=== PATIENT | female | born 1935 | race Caucasian/White ===

== ENCOUNTER 2023-04-10 08:44 | Emergency (ER) | payer MEDICARE, SELFPAY ==
[2023-04-10] VITALS (33 sets, daily range): BP systolic 142–198; BP diastolic 78–154; PULSE 61–85; RESP 8–27; TEMP 36.9; O2SAT 91–97; BMI 27.5
--- NOTE | 2023-04-10 08:46 | CT_ITS ---
The [address] [address] Patient Name: TORIBIO MASTERS MRN: [id number] date: 1935 Sex: F Assigned Patient Location: ER Current Patient Location: .[facility] Accession/Order Number: [id number] Exam Date: 04/10/2023 08:49 Report Date: 04/10/2023 09:07 At the request of: FLORINA LANG Procedure: CT stroke head/brain wo con CT stroke head/brain wo con, 04/10/2023 8:49 AM EDT, [place]001 INDICATION: change mental status COMPARISON: Head CT from 08/04/2022. TECHNIQUE: CT images of the brain from skull base to vertex, including portions of the face and sinuses, were obtained without contrast. Supplemental 2D reformatted images were generated and reviewed as needed. Dose reduction techniques were achieved by using automated exposure control and/or adjustment of mA and/or kV according to patient size and/or use of iterative reconstruction technique. FINDINGS: The ventricles and sulci are prominent consistent with moderate atrophy , not significantly changed. There are nonspecific foci of decreased attenuation within the white matter likely representing diffuse chronic microvascular ischemic change, not significantly changed. No mass effect, acute hemorrhage, midline shift, hydrocephalus or exta-axial fluid collection. The basal cisterns are patent. The calvarium appears intact. The visualized paranasal sinuses are clear. The mastoids are clear. CT/CT stroke head/brain wo con IMPRESSION: Moderate atrophy and chronic ischemic changes. No acute intracranial process is seen. No significant interval change is seen. Electronically authenticated by: RADHA BARAJAS Date: 04/10/2023 09:07
--- NOTE | 2023-04-10 09:01 | ED.AMS1 ---
HPI - Altered Mental Status General Chief Complaint: Altered Mental Status Stated Complaint: STROKE LIKE SYMPTOMS Time Seen by Provider: 04/10/23 09:01 Source: other Source comment: ems Mode of arrival: ambulance Limitations: altered mental status History of Present Illness HPI narrative: Patient brought in via EMS from the [facility]. As stated the patient woke up this morning and was fine. Her last known well was at 6:50 AM. She was found at 8:18AM after she had breakfast.family was told that she was hypotensive, weak And having difficulty walking with her walker. Family states the patient had a cough 3 days ago. They did an x-ray of the chest which was negative. She was also swabbed for covid19 at that time and it was negative. Patient does not have any complaints at this time she is not slurring her speech and does not have any complaints.She has not had any fever, nausea, vomiting, or diarrhea. 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 She is only oriented to self.She has not had any vomiting, or diarrhea. MD complaint: Reports altered mental status Review of Systems ROS Status of ROS unobtainable due to medical condition PFSH [facility] Social History Smoking status: Never smoker Exam Narrative Exam Narrative: Nurses notes and vital signs reviewed and patient is not hypoxic. General: Nontoxic, Elderly, chronically ill, and in no apparent distress. Skin: Warm, dry, no pallor noted. No Rash Head: Normocephalic, atraumatic. Neck: Supple, non-tender. Eye: Pupils are equal, round and EOMI. No scleral icterus. Ears, Nose, Mouth, and Throat: TM clear, no posterior oropharynx erythema or nasal mucosal hypertrophy, uvula is mid-line Oral mucosa is moist Cardiovascular: Regular Rate and Rhythm without murmur, gallop or rub. Respiratory: No accessory muscle use or respiratory distress. Lungs are clear to auscultation, no wheezing, rales or rhonchi Chest Wall: no tenderness Back: No midline thoracic or lumbar vertebral tenderness. No CVA tenderness Musculoskeletal: normal ROM, no calf or popliteal tenderness, no lower extremity edema/swelling GI: Abdomen is soft, non-distended. Normal bowel sounds. No masses appreciated. No tenderness to palpation. No rebound, guarding, or rigidity noted. Neurological: A&O x1. No focal cranial nerve dysfunction observed. Moves all extremities, Follows commands, no facial asymmetry, good and equal hand grasp bilaterally. Psychiatric: Cooperative, pleasant, dementia Constitutional Vital Signs, click to edit/add: Last Vital Signs Temp 98.4 F 04/10/23 08:54 Pulse 61 04/10/23 13:10 Resp 13 04/10/23 13:10 BP 142/84 H 04/10/23 13:14 Pulse Ox 94 L 04/10/23 13:10 O2 Del Method Room Air 04/10/23 09:08 Course Vital Signs Vital signs: Vital Signs Temperature 98.4 F 04/10/23 08:54 Pulse Rate 72 04/10/23 08:54 Respiratory Rate 20 04/10/23 08:54 Blood Pressure 175/78 H 04/10/23 08:54 Pulse Oximetry 97 04/10/23 08:54 Oxygen Delivery Method Room Air 04/10/23 08:54 Temperature 98.4 F 04/10/23 08:54 Pulse Rate 61 04/10/23 13:10 Respiratory Rate 13 04/10/23 13:10 Blood Pressure 142/84 H 04/10/23 13:14 Pulse Oximetry 94 L 04/10/23 13:10 Oxygen Delivery Method Room Air 04/10/23 09:08 MDM - Altered Mental Status MDM Narrative Medical decision making narrative: CT scan stroke protocol of the brain and CTs were done and CT of the brain is negative for an acute stroke CTAs are unremarkable other than 50 percent bilateral carotid stenosis. The patient is not exhibiting any evidence of sepsis., Urinalysis, x-rays do not show any infection. Patient is sitting up at the bed and has been interacting normally with her son is at her baseline. Patient will be [facility] to the [facility]. At this time the patient is without objective evidence of an acute process requiring hospitalization or inpatient management. The patient has remained hemodynamically stable. No additional indication for emergent studies at this time. I answered all questions. Discussed discharge instructions including standard anticipatory guidance and what should prompt a return to the emergency department, including if they get worse are not getting better or develops any new or concerning symptoms. I've given them specific time frame in which to follow-up, and who to follow-up with. The patient demonstrates understanding. Patient is nontoxic and stable for discharge with outpatient follow-up. This note was created with the assistance of a speech recognition program. Although the intention is to generate documents that actually reflects the content of the visit, no guarantees can be provided that every mistake has been identified and corrected by editing. Differential Diagnosis Differential diagnosis: Likely altered mental status, dementia, subarachnoid hemorrhage and sepsis Medical Records Attestation: I reviewed the patient's medical records. Lab Data Attestation: I reviewed the patient's lab results. Labs: Lab Results 04/10/23 04/10/23 04/10/23 Range/Units 09:03 09:05 09:42 WBC (4.0-11.0) 10^3/uL RBC (4.20-5.40) 10^6/uL Hgb (12.0-16.0) g/dL Hct (36.0-48.0) % MCV (81.0-99.0) fL MCH (26.7-34.0) pg MCHC (29.9-35.2) g/dL RDW (11.0-15.0) % Plt Count (150-450) 10^3/uL MPV (9.5-13.5) fL Neut % (Auto) (43.0-75.0) % Lymph % (Auto) (20.5-60.0) % [place] % (Auto) (1.7-12.0) % Eos % (Auto) (0.9-7.0) % Baso % (Auto) (0.2-2.0) % Neut # (Auto) (1.4-6.5) 10^3/uL Lymph # (Auto) (1.2-3.8) 10^3/uL [place] # (Auto) (0.3-0.8) 10^3/uL Eos # (Auto) (0.0-0.7) 10^3/uL Baso # (Auto) (0.0-0.1) 10^3/uL Abs Immat Gran (auto) (0.00-0.03) 10^3/uL Imm/Tot Granulo (auto) (0.0-0.5) % PT (9.0-11.6) sec INR APTT (22.3-36.2) sec Sodium (136-145) mmol/L Potassium (3.5-5.1) mmol/L Chloride (98-107) mmol/L Carbon Dioxide (21.0-32.0) mmol/L Anion Gap BUN (7.0-18.0) mg/dL Creatinine (0.55-1.02) mg/dL Est GFR ( Amer) (>=60) Est GFR (Non-Af Amer) (>=60) BUN/Creatinine Ratio Glucose (74-106) mg/dL Calcium (8.5-10.1) mg/dL Total Bilirubin (0.2-1.0) mg/dL AST (15-37) U/L ALT (14-59) U/L Alkaline Phosphatase (46-116) U/L Troponin I High Sens (4.0-51.3) pg/mL NT-Pro-B Natriuret Pep 885.0 (<=1800.0) pg/mL Total Protein (6.4-8.2) g/dL Albumin (3.4-5.0) g/dL Globulin g/dL Albumin/Globulin Ratio Urine Color Lt. yellow (YELLOW) Urine Clarity Clear (CLEAR) Urine pH 7.0 (5.0-9.0) Ur Specific [place] 1.010 (1.005-1.025) Urine Protein Negative (NEG/TRACE) mg/dL Urine Glucose (UA) Negative (NEGATIVE) mg/dL Urine Ketones Negative (NEGATIVE) mg/dL Urine Occult Blood Trace-i (NEGATIVE) Urine Nitrite Negative (NEGATIVE) Urine Bilirubin Negative (NEGATIVE) Urine Urobilinogen 0.2 (0.2-1.0) EU/dL Ur Leukocyte Esterase Negative (NEGATIVE) Urine RBC 0-2 (0-2) #/HPF Urine WBC None seen (NONE SEEN) #/HPF Ur Squamous Epith Cells None seen (NONE/RARE) #/LPF Urine Crystals None seen (None Seen) #/HPF Urine Bacteria None seen (NONE SEEN) #/HPF Urine Mucus None seen (NONE SEEN) Ur Culture Indicated? No Adenovirus (PCR) (NOT DETECTE) C. pneumoniae DNA (PCR) (NOT DETECTE) Coronavirus Type OC43 (NOT DETECTE) Coronavirus Type HKU1 (NOT DETECTE) Coronavirus Type 229E (NOT DETECTE) Coronavirus Type NL63 (NOT DETECTE) Human Metapneumovir PCR (NOT DETECTE) M. pneumoniae (PCR) (NOT DETECTE) Parainfluenza PCR (NOT DETECTE) Parainfluenza 2 (PCR) (NOT DETECTE) Parainfluenza 3 (PCR) (NOT DETECTE) Parainfluenza 4 (PCR) (NOT DETECTE) RSV (RT-PCR) (NOT DETECTE) Entero/Rhino (PCR) (NOT DETECTE) SARS-CoV-2 (PCR) (NOT DETECTE) Bordetella pertussis (PCR) (NOT DETECTE) B parapertussis DNA PCR (NOT DETECTE) Influenza Type A (PCR) (NOT DETECTE) Influenza Type B (PCR) (NOT DETECTE) POC Glucose 159 H (74-106) mg/dL 04/10/23 04/10/23 Range/Units 09:43 12:11 WBC 8.0 (4.0-11.0) 10^3/uL RBC 4.04 L (4.20-5.40) 10^6/uL Hgb 12.0 (12.0-16.0) g/dL Hct 36.5 (36.0-48.0) % MCV 90.3 (81.0-99.0) fL MCH 29.7 (26.7-34.0) pg MCHC 32.9 (29.9-35.2) g/dL RDW 13.1 (11.0-15.0) % Plt Count 187 (150-450) 10^3/uL MPV 10.0 (9.5-13.5) fL Neut % (Auto) 75.0 (43.0-75.0) % Lymph % (Auto) 14.3 L (20.5-60.0) % [place] % (Auto) 8.0 (1.7-12.0) % Eos % (Auto) 1.6 (0.9-7.0) % Baso % (Auto) 0.8 (0.2-2.0) % Neut # (Auto) 6.0 (1.4-6.5) 10^3/uL Lymph # (Auto) 1.1 L (1.2-3.8) 10^3/uL [place] # (Auto) 0.6 (0.3-0.8) 10^3/uL Eos # (Auto) 0.1 (0.0-0.7) 10^3/uL Baso # (Auto) 0.1 (0.0-0.1) 10^3/uL Abs Immat Gran (auto) 0.02 (0.00-0.03) 10^3/uL Imm/Tot Granulo (auto) 0.3 (0.0-0.5) % PT 11.0 (9.0-11.6) sec INR 1.04 APTT 28.6 (22.3-36.2) sec Sodium 137 (136-145) mmol/L Potassium 3.8 (3.5-5.1) mmol/L Chloride 102 (98-107) mmol/L Carbon Dioxide 26.1 (21.0-32.0) mmol/L Anion Gap 12.7 BUN 13.0 (7.0-18.0) mg/dL Creatinine 0.83 (0.55-1.02) mg/dL Est GFR ( Amer) >60 (>=60) Est GFR (Non-Af Amer) >60 (>=60) BUN/Creatinine Ratio 15.7 Glucose 166 H (74-106) mg/dL Calcium 9.4 (8.5-10.1) mg/dL Total Bilirubin 0.6 (0.2-1.0) mg/dL AST 19 (15-37) U/L ALT 18 (14-59) U/L Alkaline Phosphatase 65 (46-116) U/L Troponin I High Sens 13.3 (4.0-51.3) pg/mL NT-Pro-B Natriuret Pep (<=1800.0) pg/mL Total Protein 6.9 (6.4-8.2) g/dL Albumin 3.2 L (3.4-5.0) g/dL Globulin 3.7 g/dL Albumin/Globulin Ratio 0.9 Urine Color (YELLOW) Urine Clarity (CLEAR) Urine pH (5.0-9.0) Ur Specific [place] (1.005-1.025) Urine Protein (NEG/TRACE) mg/dL Urine Glucose (UA) (NEGATIVE) mg/dL Urine Ketones (NEGATIVE) mg/dL Urine Occult Blood (NEGATIVE) Urine Nitrite (NEGATIVE) Urine Bilirubin (NEGATIVE) Urine Urobilinogen (0.2-1.0) EU/dL Ur Leukocyte Esterase (NEGATIVE) Urine RBC (0-2) #/HPF Urine WBC (NONE SEEN) #/HPF Ur Squamous Epith Cells (NONE/RARE) #/LPF Urine Crystals (None Seen) #/HPF Urine Bacteria (NONE SEEN) #/HPF Urine Mucus (NONE SEEN) Ur Culture Indicated? Adenovirus (PCR) Not detected (NOT DETECTE) C. pneumoniae DNA (PCR) Not detected (NOT DETECTE) Coronavirus Type OC43 Not detected (NOT DETECTE) Coronavirus Type HKU1 Not detected (NOT DETECTE) Coronavirus Type 229E Not detected (NOT DETECTE) Coronavirus Type NL63 Not detected (NOT DETECTE) Human Metapneumovir PCR Not detected (NOT DETECTE) M. pneumoniae (PCR) Not detected (NOT DETECTE) Parainfluenza PCR Not detected (NOT DETECTE) Parainfluenza 2 (PCR) Not detected (NOT DETECTE) Parainfluenza 3 (PCR) Not detected (NOT DETECTE) Parainfluenza 4 (PCR) Not detected (NOT DETECTE) RSV (RT-PCR) Not detected (NOT DETECTE) Entero/Rhino (PCR) Not detected (NOT DETECTE) SARS-CoV-2 (PCR) Not detected (NOT DETECTE) Bordetella pertussis (PCR) Not detected (NOT DETECTE) B parapertussis DNA PCR Not detected (NOT DETECTE) Influenza Type A (PCR) Not detected (NOT DETECTE) Influenza Type B (PCR) Not detected (NOT DETECTE) POC Glucose (74-106) mg/dL ECG Data Attestation: I personally reviewed and interpreted this ECG as follows: Discharge Plan Discharge Chief Complaint: Altered Mental Status Clinical Impression: Near syncope, Hypotension, Dementia Patient Disposition: Home, Self-Care Time of Disposition Decision: 12:42 Condition: Good Mode of Transportation: Private Vehicle Instructions: Near Syncope (ED), Syncope in Older Adults (ED) Stand Alone Forms: Portal Instructions Referrals: SKYLA DILLARD DO [Primary Care Provider] - 1 week
[2023-04-10 09:07] LABS: Glucometer 159 mg/dL (74-106)
--- NOTE | 2023-04-10 09:15 | CT_ITS ---
The [address] [address] Patient Name: TORIBIO MASTERS MRN: [id number] date: 1935 Sex: F Assigned Patient Location: ER Current Patient Location: .[facility] Accession/Order Number: [id number] Exam Date: 04/10/2023 10:38 Report Date: 04/10/2023 11:16 At the request of: FLORINA LANG Procedure: CT angio head EXAM: CT angio head, CT angio neck HISTORY: Mental status change changes COMPARISON: CT head 04/10/2023. TECHNIQUE: Axial postcontrast CTA imaging of the head and neck was performed with coronal and sagittal reformats. Maximum intensity projection reformats were performed on a separate workstation. NASCET criteria was utilized. This CT exam was performed using one or more of the following dose reduction techniques: Automated exposure control, adjustment of the MA and/or kV according to patient size, or use of iterative reconstruction technique. Please note all images for both the CTA head and CT neck or contained under the CTA head patient jacket. FINDINGS: Aortic arch: Imaged portion shows no evidence of aneurysm. No significant stenosis of the major origins of the major arch vessels. Right carotid system: Tortuous appearance of the right common carotid artery. No evidence of significant (50% or greater) stenosis or occlusion. Left carotid system: There is dense atherosclerotic calcification involving the left high carotid bulb and small left internal carotid artery with narrowing approaching but not exceeding 50% at the left internal carotid artery origin. Vertebral arteries: Mild left vertebral artery dominance. No evidence of significant (50% or greater) stenosis or occlusion. Anterior circulation: No evidence of aneurysm, significant stenosis, or occlusion. Vertebrobasilar system: No evidence of aneurysm, significant stenosis, or occlusion. Venous sinuses: Grossly patent. Additional findings: Nonspecific asymmetric appearance of the left piriform sinus with lack of visualization of the left piriform sinus without visible arterial enhancing mass. This may relate to asymmetric medialization of the left common carotid artery. CT/CT angio head IMPRESSION: 1. Dense atherosclerotic calcification involving the left carotid bulb and origin of the left internal carotid artery with narrowing approaching but not exceeding 50% stenosis. 2. There is otherwise no hemodynamically significant stenosis, large vessel occlusion or aneurysm involving the neck or intracranial arterial vasculature. Electronically authenticated by: RUBI PERALTA Date: 04/10/2023 11:16
--- NOTE | 2023-04-10 09:15 | XR_ITS ---
The [address] [address] Patient Name: TORIBIO MASTERS MRN: [id number] date: 1935 Sex: F Assigned Patient Location: ER Current Patient Location: ED.MAIN Accession/Order Number: [id number] Exam Date: 04/10/2023 10:38 Report Date: 04/10/2023 11:05 At the request of: FLORINA LANG Procedure: XR chest 1V EXAMINATION: XR chest 1V 04/10/2023 8:04 AM PDT HISTORY: ms changes TECHNIQUE: Single frontal view of the chest acquired. COMPARISONS: Chest x-ray 06/07/2022 FINDINGS: Lines/tubes/other: None. Heart and mediastinum: Stable. Bones: No acute osseous abnormality. Lungs: There is pulmonary vascular engorgement with mild interstitial septal thickening. Pleura: There is no significant pleural effusion or pneumothorax. Other: Contrast pooling within the left upper extremity likely due to venous stasis. XR/XR chest 1V IMPRESSION: Findings of mild pulmonary edema which could be exaggerated due to patient positioning and exam technique. Electronically authenticated by: SANG ALEXANDER Date: 04/10/2023 11:05
--- NOTE | 2023-04-10 09:15 | CT_ITS ---
The [address] [address] Patient Name: TORIBIO MASTERS MRN: [id number] date: 1935 Sex: F Assigned Patient Location: ER Current Patient Location: .[facility] Accession/Order Number: [id number] Exam Date: 04/10/2023 10:38 Report Date: 04/10/2023 11:16 At the request of: FLORINA LANG Procedure: CT angio neck EXAM: CT angio head, CT angio neck HISTORY: Mental status change changes COMPARISON: CT head 04/10/2023. TECHNIQUE: Axial postcontrast CTA imaging of the head and neck was performed with coronal and sagittal reformats. Maximum intensity projection reformats were performed on a separate workstation. NASCET criteria was utilized. This CT exam was performed using one or more of the following dose reduction techniques: Automated exposure control, adjustment of the MA and/or kV according to patient size, or use of iterative reconstruction technique. Please note all images for both the CTA head and CT neck or contained under the CTA head patient jacket. FINDINGS: Aortic arch: Imaged portion shows no evidence of aneurysm. No significant stenosis of the major origins of the major arch vessels. Right carotid system: Tortuous appearance of the right common carotid artery. No evidence of significant (50% or greater) stenosis or occlusion. Left carotid system: There is dense atherosclerotic calcification involving the left high carotid bulb and small left internal carotid artery with narrowing approaching but not exceeding 50% at the left internal carotid artery origin. Vertebral arteries: Mild left vertebral artery dominance. No evidence of significant (50% or greater) stenosis or occlusion. Anterior circulation: No evidence of aneurysm, significant stenosis, or occlusion. Vertebrobasilar system: No evidence of aneurysm, significant stenosis, or occlusion. Venous sinuses: Grossly patent. Additional findings: Nonspecific asymmetric appearance of the left piriform sinus with lack of visualization of the left piriform sinus without visible arterial enhancing mass. This may relate to asymmetric medialization of the left common carotid artery. CT/CT angio neck IMPRESSION: 1. Dense atherosclerotic calcification involving the left carotid bulb and origin of the left internal carotid artery with narrowing approaching but not exceeding 50% stenosis. 2. There is otherwise no hemodynamically significant stenosis, large vessel occlusion or aneurysm involving the neck or intracranial arterial vasculature. Electronically authenticated by: RUBI PERALTA Date: 04/10/2023 11:16
--- NOTE | 2023-04-10 09:15 | ECG_ITS ---
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
[2023-04-10 09:34] LABS: Bilirubin Urine NEGATIVE (NEGATIVE); Blood Urine TRACE-I (NEGATIVE); Clarity Urine CLEAR (CLEAR); Color Urine LT. YELLOW (YELLOW); Glucose Urine UA NEGATIVE (NEGATIVE); Ketones Urine NEGATIVE (NEGATIVE); Leukocyte Esterase Urine NEGATIVE (NEGATIVE); Nitrite Urine NEGATIVE (NEGATIVE); Protein Urine NEGATIVE (NEG/TRACE); Urobilinogen Urine 0.2 EU/dL (0.2-1.0)
[2023-04-10 09:35] LABS: Urine Microscopic Indicated YES
[2023-04-10 09:44] LABS: Bacteria Urine NONE SEEN #/HPF (NONE SEEN); Mucus Urine NONE SEEN (NONE SEEN); RBC Urine 0-2 #/HPF (0-2); Squamous Epithelial Cell Urine NONE SEEN #/LPF (NONE/RARE); Urine Culture Indicated NO; WBC Urine NONE SEEN #/HPF (NONE SEEN)
[2023-04-10 09:51] LABS: Basophils Absolute Auto 0.1 10^3/uL (0.0-0.1); Basophils Percent Auto 0.8 % (0.2-2.0); Eosinophils Absolute Auto 0.1 10^3/uL (0.0-0.7); Eosinophils Percent Auto 1.6 % (0.9-7.0); Hematocrit 36.5 % (36.0-48.0); Immature Granulocytes Abs Auto 0.02 10^3/uL (0.00-0.03); Immature Granulocytes Pct Auto 0.3 % (0.0-0.5); Lymphocytes Absolute Auto 1.1 10^3/uL (1.2-3.8); Lymphocytes Percent Auto 14.3 % (20.5-60.0); Mean Corpuscular HGB Conc 32.9 g/dL (29.9-35.2); Mean Corpuscular Hemoglobin 29.7 pg (26.7-34.0); Mean Corpuscular Volume 90.3 fL (81.0-99.0); Monocytes Absolute Auto 0.6 10^3/uL (0.3-0.8); Platelet Count 187 10^3/uL (150-450); Red Blood Count 4.04 10^6/uL (4.20-5.40); Red Cell Distribution Width 13.1 % (11.0-15.0)
[2023-04-10 10:14] LABS: Alanine Aminotransferase 18 U/L (14-59); Albumin Globulin Ratio 0.9; Albumin Level 3.2 g/dL (3.4-5.0); Alkaline Phosphatase 65 U/L (46-116); Anion Gap 12.7; Aspartate Amino Transferase 19 U/L (15-37); BUN Creatinine Ratio 15.7; Bilirubin Total 0.6 mg/dL (0.2-1.0); Calcium 9.4 mg/dL (8.5-10.1); Carbon Dioxide 26.1 mmol/L (21.0-32.0); Chloride 102 mmol/L (98-107); Estimated GFR (African America >60 (>=60); Estimated GFR (Non-African Ame >60 (>=60); Globulin 3.7 g/dL; Glucose 166 mg/dL (74-106); Potassium 3.8 mmol/L (3.5-5.1); Sodium 137 mmol/L (136-145); Total Protein 6.9 g/dL (6.4-8.2); Troponin I High Sensitivity 13.3 pg/mL (4.0-51.3)
[2023-04-10 10:35] LABS: INR 1.04; Partial Thromboplastin Time 28.6 sec (22.3-36.2)
[2023-04-10 12:20] LABS: Adenovirus NOT DETECTED (NOT DETECTE); Bordetella parapertussis NOT DETECTED (NOT DETECTE); Coronavirus 229E NOT DETECTED (NOT DETECTE); Coronavirus HKU1 NOT DETECTED (NOT DETECTE); Coronavirus NL63 NOT DETECTED (NOT DETECTE); Coronavirus OC43 NOT DETECTED (NOT DETECTE); Human Metapneumovirus NOT DETECTED (NOT DETECTE); Human Rhinovirus/Enterovirus NOT DETECTED (NOT DETECTE); Influenza A NOT DETECTED (NOT DETECTE); Influenza B NOT DETECTED (NOT DETECTE); Mycoplasma pneumoniae NOT DETECTED (NOT DETECTE); Parainfluenza Virus 1 NOT DETECTED (NOT DETECTE); Parainfluenza Virus 2 NOT DETECTED (NOT DETECTE); Parainfluenza Virus 3 NOT DETECTED (NOT DETECTE); Parainfluenza Virus 4 NOT DETECTED (NOT DETECTE); Respiratory Syncytial Virus NOT DETECTED (NOT DETECTE); SARS-CoV-2 NOT DETECTED (NOT DETECTE)
[2023-04-10 12:32] LABS: Crystals Seen? None Seen #/HPF (None Seen)
== END 2023-04-10 13:42 | disposition home or self-care (01) ==
PROVIDERS: Emergency Provider Emergency Medicine; PCP Family Medicine
DX: R55 Syncope and collapse (principal); I95.9 Hypotension, unspecified; F03.90 Unspecified dementia, unspecified severity, without behavioral disturbance, psychotic disturbance, mood disturbance, and anxiety; Z20.822 Contact with and (suspected) exposure to COVID-19; Z86.73 Personal history of transient ischemic attack (TIA), and cerebral infarction without residual deficits
CPT/HCPCS: 0202U; 36415; 70450; 70496; 70498; 71045; 80053; 81001; 83880; 84484; 85025; 85610; 85730; 93005; 99285; Q9967

== ENCOUNTER 2023-06-02 18:24 | Observation (INO) | payer MEDICARE, SELFPAY ==
[2023-06-02] VITALS (23 sets, daily range): BP systolic 163–192; BP diastolic 66–100; PULSE 70–96; RESP 13–188; TEMP 36.8–37; O2SAT 92–96; BMI 26.5; BMI 23.1
--- NOTE | 2023-06-02 18:23 | CT_ITS ---
The [address] [address] Patient Name: TORIBIO MASTERS MRN: [facility]:[id number] date: 1935 Sex: F Assigned Patient Location: ER Current Patient Location: ER Accession/Order Number: [id number] Exam Date: 06/02/2023 18:25 Report Date: 06/02/2023 18:44 At the request of: WAQAS DUONG Procedure: CT stroke head/brain wo con EXAM: CT stroke head/brain wo con HISTORY: slurred speech COMPARISON: CT brain 04/10/2023. TECHNIQUE: Axial CT scans through the head were obtained without IV contrast administration. Dose reduction techniques were achieved by using: automated exposure control and/or adjustment of mA and /or kV according to patient size and/or use of iterative reconstruction technique. FINDINGS: There is no evidence of acute intracranial hemorrhage or abnormal extra-axial fluid collection. No mass effect or midline shift is seen. There is no evidence of large acute territorial infarction. There is no hydrocephalus. There is a remote lacunar infarct in left basal ganglia. Moderate to severe enlargement of the enlarged ventricles and sulci, consistent with age appropriate cerebral atrophy. Patchy areas of low-attenuation are present in supratentorial white matter, likely represents chronic microvascular ischemia. There are atherosclerotic calcifications of bilateral cavernous carotid arteries. There are bilateral basal ganglia calcifications. Moderate cerebellar atrophy is noted. No definite acute fracture is identified. Soft tissues are unremarkable. The visualized orbits show no abnormal mass. The visualized paranasal sinuses show no air-fluid level. Mastoid air cells are clear. There is cerumen within the left external auditory canal CT/CT stroke head/brain wo con IMPRESSION: No CT evidence of acute intracranial abnormality. If there is sufficient clinical concern for acute brain parenchymal pathology, consider MRI for further evaluation. A remote lacunar infarct in left basal ganglia. Moderate to severe chronic microvascular ischemia and involutional changes. Electronically authenticated by: JOON KAMARA Date: 06/02/2023 18:44
--- NOTE | 2023-06-02 18:25 | XR_ITS ---
The [place] [id number] Patient Name: TORIBIO MASTERS MRN: [id number] date: 1935 Sex: F Assigned Patient Location: ED.MAIN Current Patient Location: ER Accession/Order Number: [id number] Exam Date: 06/02/2023 18:56 Report Date: 06/02/2023 20:57 At the request of: AUNG CLAYTON Procedure: XR chest 1V EXAMINATION: XR chest 1V HISTORY: Chest pain COMPARISON: Portable chest 04/10/2023 TECHNIQUE: Portable chest FINDINGS: Chronic changes throughout the lung parenchyma with no acute consolidation or infiltrate. No pneumothorax or pleural effusion. The cardiac, mediastinal and hilar contours are normal. The visualized osseous structures exhibit no gross abnormality. XR/XR chest 1V IMPRESSION: No acute cardiopulmonary abnormality. Electronically authenticated by: DAVIDE RIVERA Date: 06/02/2023 20:57
--- NOTE | 2023-06-02 18:25 | ECG_ITS ---
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
--- NOTE | 2023-06-02 18:33 | ED_ITS ---
Patient was not seen or evaluated by Dr. Rosenberg, patient was seen and evaluated with Dr. Catherine HPI - Neuro Symptoms/Deficit General Chief Complaint: Altered Mental Status Stated Complaint: CVA Time Seen by Provider: 06/02/23 18:24 Source: family Mode of arrival: ambulance Limitations: other Limitations comment: Patient condition History of Present Illness HPI Narrative: 87-year-old female past medical history dementia, type 2 diabetes, hyperlipidemia, hypertension, heart failure, hypertrophic cardiomyopathy, A-fib presents by squad for a couple episodes of slurring speech today. Patient is alert and oriented x1 and this is her normal. There is no family here and HPI limited by patient condition. The only information we have is the last episode of slurred speech lasted for 30 seconds 1 hour ago. There are now 2 sons here and 1 son states that he was with her an hour ago and her words were garbled. He states that she has had multiple TIAs in the past and she is on Plavix and Eliquis. Son states that she can say her name, but as far as following commands, she may have to be asked multiple times. Related Data Home Medications Medication Instructions Recorded Confirmed albuterol sulfate 90 mcg/actuation 1 inh inhalation Q6H PRN shortness 06/02/23 06/02/23 breath activated powder inhaler of breath apixaban 2.5 mg tablet (Eliquis) 2.5 mg PO DAILY 06/02/23 06/02/23 atorvastatin 40 mg tablet 40 mg PO DAILY 06/02/23 06/02/23 benzonatate 100 mg capsule 100 mg PO TID PRN cough 06/02/23 06/02/23 calcium citrate 315 mg 1 tab PO QAM 06/02/23 06/02/23 calcium-vitamin D3 6.25 mcg (250 unit) tablet cephalexin 500 mg capsule 500 mg PO QDAY 06/02/23 06/03/23 clopidogrel 75 mg tablet 75 mg PO DAILY 06/02/23 06/02/23 docusate sodium 100 mg capsule 100 mg PO BID 06/02/23 06/02/23 (Colace) isosorbide dinitrate 30 mg tablet 30 mg PO DAILY 06/02/23 06/02/23 loratadine 10 mg tablet (Claritin) 10 mg PO DAILY PRN allergic 06/02/23 06/02/23 symptoms metoprolol tartrate 25 mg tablet 25 mg PO BID 06/02/23 06/02/23 oxybutynin chloride 5 mg 5 mg PO DAILY 06/02/23 06/02/23 tablet,extended release 24 hr pantoprazole 20 mg tablet,delayed 20 mg PO DAILY 06/02/23 06/02/23 release sennosides 8.6 mg capsule (senna) 8.6 mg PO DAILY 06/02/23 06/02/23 sertraline 25 mg tablet 25 mg PO DAILY 06/02/23 06/02/23 Allergies Allergy/AdvReac Type Severity Reaction Status Date / Time pravastatin Allergy Unknown Verified 06/02/23 18:40 Review of Systems ROS Status of ROS 10 or more systems reviewed and unremarkable except as noted in history and below [facility] Medical History (Updated 06/08/23 @ 00:00 by ) Anemia ?D64.9 - Anemia, unspecified (ICD-10) Atrial fibrillation ?I48.91 - Unspecified atrial fibrillation (ICD-10) Cerebral infarction ?I63.9 - Cerebral infarction, unspecified (ICD-10) Cognitive communication deficit ?R41.841 - Cognitive communication deficit (ICD-10) Episode of change in speech ?R47.89 - Other speech disturbances (ICD-10) Fracture of right femur ?S72.91XA - Unspecified fracture of right femur, initial encounter for closed fracture (ICD-10) GERD (gastroesophageal reflux disease) ?K21.9 - Gastro-esophageal reflux disease without esophagitis (ICD-10) Heart failure ?I50.9 - Heart failure, unspecified (ICD-10) Hypertension ?I10 - Essential (primary) hypertension (ICD-10) Hypo-osmolar hyponatremia ?E87.1 - Hypo-osmolality and hyponatremia (ICD-10) Hypotension ?I95.9 - Hypotension, unspecified (ICD-10) Major depressive disorder ?F32.9 - Major depressive disorder, single episode, unspecified (ICD-10) Near syncope ?R55 - Syncope and collapse (ICD-10) Pulmonary hypertension ?I27.20 - Pulmonary hypertension, unspecified (ICD-10) Ventricular premature depolarization ?I49.3 - Ventricular premature depolarization (ICD-10) Social History Smoking status: Never smoker Exam Narrative Exam Narrative: General: alert, no distress, talking in full an complete sentences skin: warm, dry, intact head: normocephalic, atraumatic eyes: PERRLA, EOMI, normal conjunctiva, no nystagmus nose: nares patent mouth: Mucous membranes moist neck: supple, trachea midline cardiac: +S1/S2 respiratory: non-labored, no wheezing, no retractions extremities: FROM x 4, strength +5/5, capillary refill intact neuro: A&Ox0, no focal deficits psych: appropriate mood and affect, cooperative Constitutional Vital Signs, click to edit/add: Last Vital Signs Temp 98.2 F 06/04/23 14:00 Pulse 70 06/04/23 14:00 Resp 16 06/04/23 14:00 BP 164/80 H 06/04/23 14:00 Pulse Ox 93 L 06/04/23 14:00 O2 Del Method Room Air 06/04/23 14:00 Course Course Hospital Course: The patient was admitted with equivocal neurologic findings including expressive aphasia and decreased responsiveness that was self-limiting and brief, concerning for possible CVA. She was initially seen in consult by the stroke team after CT of the brain and CTA of the head/neck were obtained in the ED (negative for acute findings) and admission for further diagnostic imaging was recommended. An MRI was attempted but the patient was unable to cooperate fully with the exam and there was too much motion for the radiologist to give a diagnostic reading. No definitive evidence of CVA was found. A 2D Echo was unremarkable and the bubble portion was negative for intracardiac shunting. Follow-up with telemetry neuro was recommended by the telestroke team and she was seen by them the following day. They recommended an EEG as there was some concern for possible seizure-like activity. On the day of discharge an EEG was obtained but the neurology interpretation is pending. No seizure activity was noted by staff during her admission. The telemetry neuro team saw the patient on the day of discharge and recommended outpatient follow-up in 2 to 4 weeks. We have not changed any home medications for the patient at the time of discharge. We did not add aspirin for DAPT as she is already on Plavix and Eliquis. Her symptoms have completely resolved and we clinically suspect this may reflect advancing dementia with waxing and waning characteristics. We defer to the outpatient neurology team if further interventions are indicated. Vital Signs Vital signs: Vital Signs Temperature 98.3 F 06/02/23 18:32 Pulse Rate 85 06/02/23 18:32 Respiratory Rate 20 06/02/23 18:32 Blood Pressure 192/89 H 06/02/23 18:32 Pulse Oximetry 96 06/02/23 18:32 Oxygen Delivery Method Room Air 06/02/23 18:32 Temperature 98.2 F 06/04/23 14:00 Pulse Rate 70 06/04/23 14:00 Respiratory Rate 16 06/04/23 14:00 Blood Pressure 164/80 H 06/04/23 14:00 Pulse Oximetry 93 L 06/04/23 14:00 Oxygen Delivery Method Room Air 06/04/23 14:00 MDM - Neuro Symptoms/Deficit MDM Narrative Medical decision making narrative: The only command patient will follow is taking on her tongue and will not follow any other commands and unable to obtain NIH score and is not a tPA candidate. EKG sinus rhythm with a first-degree AV block at a rate of 85. No acute findings on final read of CT head. There is mention of a remote lacunar infarct in the left basal ganglia. UA negative for UTI. No other significant abnormalities. Case discussed with [facility] stroke team and neurologist is not convinced that this is a stroke, but recommends admission for MRI. Case discussed with Dr. Palmer, hospitalist who accepts admission. No acute findings on final read of chest x-ray. CTA head and neck pending at time of admission. There is another son here now who states was with her this morning around 10 AM and she spilled her juice for breakfast and she walked back to her room in the memory care unit and had some trouble sitting down due to right leg issue, but he states that this is normal for her. The nurse aide told the son that the patient was talking to him, but did not seem like she was there, almost like the aide was not visible. This resolved. Lab Data Labs: Lab Results 06/02/23 06/02/23 Range/Units 18:30 18:41 WBC 8.5 (4.0-11.0) 10^3/uL RBC 4.00 L (4.20-5.40) 10^6/uL Hgb 12.1 (12.0-16.0) g/dL Hct 36.2 (36.0-48.0) % MCV 90.5 (81.0-99.0) fL MCH 30.3 (26.7-34.0) pg MCHC 33.4 (29.9-35.2) g/dL RDW 12.8 (11.0-15.0) % Plt Count 221 (150-450) 10^3/uL MPV 10.9 (9.5-13.5) fL Neut % (Auto) 63.3 (43.0-75.0) % Lymph % (Auto) 23.7 (20.5-60.0) % Blair % (Auto) 10.6 (1.7-12.0) % Eos % (Auto) 1.7 (0.9-7.0) % Baso % (Auto) 0.6 (0.2-2.0) % Neut # (Auto) 5.4 (1.4-6.5) 10^3/uL Lymph # (Auto) 2.0 (1.2-3.8) 10^3/uL Blair # (Auto) 0.9 H (0.3-0.8) 10^3/uL Eos # (Auto) 0.1 (0.0-0.7) 10^3/uL Baso # (Auto) 0.1 (0.0-0.1) 10^3/uL Abs Immat Gran (auto) 0.01 (0.00-0.03) 10^3/uL Imm/Tot Granulo (auto) 0.1 (0.0-0.5) % PT 10.8 (9.0-11.6) sec INR 1.02 Sodium 138 (136-145) mmol/L Potassium 4.4 (3.5-5.1) mmol/L Chloride 102 (98-107) mmol/L Carbon Dioxide 29.4 (21.0-32.0) mmol/L Anion Gap 11.0 BUN 13.0 (7.0-18.0) mg/dL Creatinine 0.84 (0.55-1.02) mg/dL Est GFR ( Amer) >60 (>=60) Est GFR (Non-Af Amer) >60 (>=60) BUN/Creatinine Ratio 15.5 Glucose 129 H (74-106) mg/dL Calcium 9.3 (8.5-10.1) mg/dL Magnesium 2.0 (1.8-2.4) mg/dL Total Bilirubin 0.6 (0.2-1.0) mg/dL AST 22 (15-37) U/L ALT 18 (14-59) U/L Alkaline Phosphatase 76 (46-116) U/L Troponin I High Sens 15.3 (4.0-51.3) pg/mL NT-Pro-B Natriuret Pep 1193.0 (<=1800.0) pg/mL Total Protein 7.4 (6.4-8.2) g/dL Albumin 3.3 L (3.4-5.0) g/dL Globulin 4.1 g/dL Albumin/Globulin Ratio 0.8 TSH 2.558 (0.358-3.740) uIU/mL Urine Color Lt. yellow (YELLOW) Urine Clarity Clear (CLEAR) Urine pH 7.0 (5.0-9.0) Ur Specific [place] 1.015 (1.005-1.025) Urine Protein Negative (NEG/TRACE) mg/dL Urine Glucose (UA) Negative (NEGATIVE) mg/dL Urine Ketones Negative (NEGATIVE) mg/dL Urine Occult Blood Trace-i (NEGATIVE) Urine Nitrite Negative (NEGATIVE) Urine Bilirubin Negative (NEGATIVE) Urine Urobilinogen 0.2 (0.2-1.0) EU/dL Ur Leukocyte Esterase Negative (NEGATIVE) Urine RBC 0-2 (0-2) #/HPF Urine WBC 0-2 A (NONE SEEN) #/HPF Ur Squamous Epith Cells Rare (NONE/RARE) #/LPF Urine Crystals None seen (None Seen) #/HPF Urine Bacteria None seen (NONE SEEN) #/HPF Urine Casts None seen (NONE SEEN) #/LPF Urine Mucus None seen (NONE SEEN) Ur Culture Indicated? No Discharge Plan Discharge Chief Complaint: Altered Mental Status Clinical Impression: Episode of change in speech Dementia Qualifiers: Dementia type: unspecified type Dementia severity: unspecified severity Dementia behavioral or psychological symptom: unspecified whether behavioral, psychotic, or mood disturbance or anxiety Qualified Code(s): F03.90 - Unspecified dementia, unspecified severity, without behavioral disturbance, psychotic disturbance, mood disturbance, and anxiety Patient Disposition: Admitted As Inpatient Time of Disposition Decision: 20:36 Condition: Good Discharge Date/Time: 06/02/23 21:10
[2023-06-02 19:05] LABS: Basophils Absolute Auto 0.1 10^3/uL (0.0-0.1); Basophils Percent Auto 0.6 % (0.2-2.0); Eosinophils Absolute Auto 0.1 10^3/uL (0.0-0.7); Eosinophils Percent Auto 1.7 % (0.9-7.0); Hematocrit 36.2 % (36.0-48.0); Hemoglobin 12.1 g/dL (12.0-16.0); Immature Granulocytes Abs Auto 0.01 10^3/uL (0.00-0.03); Immature Granulocytes Pct Auto 0.1 % (0.0-0.5); Lymphocytes Percent Auto 23.7 % (20.5-60.0); Mean Corpuscular HGB Conc 33.4 g/dL (29.9-35.2); Mean Corpuscular Hemoglobin 30.3 pg (26.7-34.0); Mean Corpuscular Volume 90.5 fL (81.0-99.0); Mean Platelet Volume 10.9 fL (9.5-13.5); Monocytes Absolute Auto 0.9 10^3/uL (0.3-0.8); Monocytes Percent Auto 10.6 % (1.7-12.0); Neutrophils Absolute Auto 5.4 10^3/uL (1.4-6.5); Neutrophils Percent Auto 63.3 % (43.0-75.0); Platelet Count 221 10^3/uL (150-450); Red Cell Distribution Width 12.8 % (11.0-15.0); White Blood Count 8.5 10^3/uL (4.0-11.0)
[2023-06-02 19:11] LABS: Bilirubin Urine NEGATIVE (NEGATIVE); Blood Urine TRACE-I (NEGATIVE); Clarity Urine CLEAR (CLEAR); Color Urine LT. YELLOW (YELLOW); Glucose Urine UA NEGATIVE (NEGATIVE); Ketones Urine NEGATIVE (NEGATIVE); Leukocyte Esterase Urine NEGATIVE (NEGATIVE); Nitrite Urine NEGATIVE (NEGATIVE); Protein Urine NEGATIVE (NEG/TRACE); Specific Gravity Urine 1.015 (1.005-1.025); Urobilinogen Urine 0.2 EU/dL (0.2-1.0)
[2023-06-02 19:21] LABS: INR 1.02; Prothrombin Time 10.8 sec (9.0-11.6)
[2023-06-02 20:00] LABS: Alanine Aminotransferase 18 U/L (14-59); Albumin Globulin Ratio 0.8; Albumin Level 3.3 g/dL (3.4-5.0); Alkaline Phosphatase 76 U/L (46-116); Aspartate Amino Transferase 22 U/L (15-37); BUN Creatinine Ratio 15.5; Bilirubin Total 0.6 mg/dL (0.2-1.0); Calcium 9.3 mg/dL (8.5-10.1); Carbon Dioxide 29.4 mmol/L (21.0-32.0); Chloride 102 mmol/L (98-107); Estimated GFR (African America >60 (>=60); Estimated GFR (Non-African Ame >60 (>=60); Globulin 4.1 g/dL; Glucose 129 mg/dL (74-106); Potassium 4.4 mmol/L (3.5-5.1); Sodium 138 mmol/L (136-145); Thyroid Stimulating Hormone 2.558 uIU/mL (0.358-3.740); Total Protein 7.4 g/dL (6.4-8.2); Troponin I High Sensitivity 15.3 pg/mL (4.0-51.3)
--- NOTE | 2023-06-02 20:10 | CT_ITS ---
The [address] [address] Patient Name: TORIBIO MASTERS MRN: [facility]:[id number] date: 1935 Sex: F Assigned Patient Location: ER Current Patient Location: ICU Accession/Order Number: [id number] Exam Date: 06/02/2023 20:48 Report Date: 06/02/2023 22:31 At the request of: AUNG CLAYTON Procedure: CT angio neck CT angio head, CT angio neck HISTORY: Slurred speech TECHNIQUE: CTA head and neck. Post-processed images {Maximum intensity Projection (MIP), Volume-rendered (VR), or Surface shaded display images (SSD)} were created, reviewed and archived. All CT scans at this facility use dose modulation, iterative reconstruction, and/or weight based dosing when appropriate to reduce radiation dose to as low as reasonably achievable. Contrast: IV administration of 100 cc Omnipaque 350 COMPARISON: CT brain 06/02/2023 and CTA head and neck 04/10/2023 RESULT: NECK: Soft tissues: Within normal limits. Spine: Alignment is normal. Mild degenerative changes are present. Lungs: The imaged lungs are clear. CT ARTERIOGRAM: EXTRACRANIAL CIRCULATION: Aortic arch and branch vessels: Conventional 3-vessel arch branch anatomy. No significant stenosis in the proximal brachiocephalic vessels. Carotid Stenosis: Right Common: No significant stenosis. Right Internal Carotid Plaque: No calcified plaque formation. Right Internal Carotid Stenosis (% by NASCET Criteria): <10% Left Common: No significant stenosis. Left Internal Carotid Plaque: Moderate calcified and noncalcified plaque formation. Left Internal Carotid Stenosis (% by NASCET Criteria): 43% Cervical Vertebral Arteries: Patency: Left Dominance: Right INTRACRANIAL CIRCULATION: Anterior circulation: Mild atherosclerotic calcification of the cavernous and clinoid ICA without hemodynamically significant stenosis. Otherwise, the distal ICAs, ACAs and MCAs are normal in caliber. A1 segments are codominant. Posterior circulation: Distal vertebral arteries, basilar trunk and brine plant operator are normal in caliber. Proximal SCAs, AICAs and PICAs are patent. No vessel cut off, filling defect, significant focal narrowing or evidence of aneurysm. Opacified dural venous sinuses and major deep and superficial draining veins are patent. CT/CT angio neck IMPRESSION: Scattered atherosclerotic calcification without large vessel occlusion or high-grade stenosis in the head or neck. Less than 10% right and 43% left ICA stenosis by NASCET criteria Electronically authenticated by: MANINDER JIN Date: 06/02/2023 22:31
--- NOTE | 2023-06-02 20:10 | CT_ITS ---
The [address] [address] Patient Name: TORIBIO MASTERS MRN: [facility]:[id number] date: 1935 Sex: F Assigned Patient Location: ER Current Patient Location: ICU Accession/Order Number: [id number] Exam Date: 06/02/2023 20:48 Report Date: 06/02/2023 22:31 At the request of: AUNG CLAYTON Procedure: CT angio head CT angio head, CT angio neck HISTORY: Slurred speech TECHNIQUE: CTA head and neck. Post-processed images {Maximum intensity Projection (MIP), Volume-rendered (VR), or Surface shaded display images (SSD)} were created, reviewed and archived. All CT scans at this facility use dose modulation, iterative reconstruction, and/or weight based dosing when appropriate to reduce radiation dose to as low as reasonably achievable. Contrast: IV administration of 100 cc Omnipaque 350 COMPARISON: CT brain 06/02/2023 and CTA head and neck 04/10/2023 RESULT: NECK: Soft tissues: Within normal limits. Spine: Alignment is normal. Mild degenerative changes are present. Lungs: The imaged lungs are clear. CT ARTERIOGRAM: EXTRACRANIAL CIRCULATION: Aortic arch and branch vessels: Conventional 3-vessel arch branch anatomy. No significant stenosis in the proximal brachiocephalic vessels. Carotid Stenosis: Right Common: No significant stenosis. Right Internal Carotid Plaque: No calcified plaque formation. Right Internal Carotid Stenosis (% by NASCET Criteria): <10% Left Common: No significant stenosis. Left Internal Carotid Plaque: Moderate calcified and noncalcified plaque formation. Left Internal Carotid Stenosis (% by NASCET Criteria): 43% Cervical Vertebral Arteries: Patency: Left Dominance: Right INTRACRANIAL CIRCULATION: Anterior circulation: Mild atherosclerotic calcification of the cavernous and clinoid ICA without hemodynamically significant stenosis. Otherwise, the distal ICAs, ACAs and MCAs are normal in caliber. A1 segments are codominant. Posterior circulation: Distal vertebral arteries, basilar trunk and graphic art sales representative are normal in caliber. Proximal SCAs, AICAs and PICAs are patent. No vessel cut off, filling defect, significant focal narrowing or evidence of aneurysm. Opacified dural venous sinuses and major deep and superficial draining veins are patent. CT/CT angio head IMPRESSION: Scattered atherosclerotic calcification without large vessel occlusion or high-grade stenosis in the head or neck. Less than 10% right and 43% left ICA stenosis by NASCET criteria Electronically authenticated by: MANINDER JIN Date: 06/02/2023 22:31
[2023-06-02 20:18] LABS: Bacteria Urine NONE SEEN #/HPF (NONE SEEN); Mucus Urine NONE SEEN (NONE SEEN); RBC Urine 0-2 #/HPF (0-2); Squamous Epithelial Cell Urine RARE #/LPF (NONE/RARE); WBC Urine 0-2 #/HPF (NONE SEEN)
[2023-06-02 20:19] LABS: Cast Seen? NONE SEEN #/LPF (NONE SEEN); Crystals Seen? None Seen #/HPF (None Seen); Urine Culture Indicated NO
--- NOTE | 2023-06-02 21:41 | CA_ITS ---
Patient: TORIBIO MASTERS Exam Date: 06/03/2023 : 1935 Gender:F Ordering : FREEMAN Valencia SISTER Admission #: [id number] Family : Chata Solo Order #: [id number] CLICK HERE TO VIEW EXAM ECHOCARDIOGRAM REPORT PROCEDURE: CA ECHO DOPPLER COMPLETE INDICATIONS: TIA vs CVA, Slurred speech COMPARISON: None. DESCRIPTION: COMPLETE ECHOCARDIOGRAM Real-time transthoracic echocardiography with 2D, M-mode, spectral and color flow Doppler performed. QUALITY: Technical quality was adequate. LEFT VENTRICLE: Normal chamber size. Thickened septal wall. LV EF: Global left ventricular systolic function is normal. Calculated left ventricular ejection fraction is 60% DIASTOLIC: Grade 2, moderate diastolic dysfunction. ATRIAL SEPTUM: Agitated saline contrast does not reveal an intra-cardiac shunt. LEFT ATRIUM: Moderate dilatation. RIGHT ATRIUM: Normal chamber size. RIGHT VENTRICLE: Normal chamber size. Normal right ventricular systolic function. TRICUSPID VALVE: Normal mobility and thickness. No stenosis with trivial regurgitation. No evidence of pulmonary hypertension. RVSP 30mmHg MITRAL VALVE: Mildly thickened with normal mobility. No evidence of mitral valve stenosis. There is no mitral annular calcification. Moderate mitral regurgitation. AORTIC VALVE: Normal trileaflet appearance. Mildly calcified aortic valve. No significant aortic stenosis. Trivial aortic regurgitation. AORTIC ROOT: Normal diameter and appearance. PULMONIC VALVE: Normal thickness and mobility. Trivial regurgitation. PERICARDIUM: No evidence of pericardial effusion. IVC: Collapses with inspirations. Normal size. CONCLUSION: 1. Global left ventricular systolic function is normal; visually estimated ejection fraction is 60 to 65% 2. The right ventricle is normal in size and systolic function 3. Grade 2, moderate diastolic dysfunction 4. The left atrium is moderately dilated 5. Moderate, eccentric mitral regurgitation 6. Agitated saline contrast reveals no intracardiac shunt Adult Echocardiography Procedure Report Left Ventricle LVEDD (3.7 - 5.6 cm): 4.33 cm LVESD (2.2 - 4.0 cm): 2.92 cm LVIVS thickness (0.6 - 1.2 cm): 1.37 cm LVPW thickness (0.5 - 1.0 cm): 0.96 cm e': 0.06 m/s E - e': 15.96 LVOT Max Gradient: 1.90 mm[Hg] LVOT Area (cm2): 0.69 m/s Peak Velocity (LVOT): 0.69 m/s Mean Velocity (LVOT): 0.44 m/s LVOT Diameter 1.90 cm Left Ventricular Ejection Fraction: 59.72 % Left Atrium LA Volume Index (2D A2C): 55.02 ml/m2 Left Atrium Systolic Dimension: 3.17 cm Mitral Valve MV E to A Ratio: 1.50 Mitral Valve A-Wave Peak Velocity: 0.66 m/s Mitral Valve E-Wave Peak Velocity: 0.99 m/s Right Ventricle RV Internal Diastolic Dimension: 2.77 cm Aorta AO Root Diam: 2.77 cm Ascending Ao Diam: 3.24 cm Aortic Valve AoV Area (Peak Petey): 1.26 cm2, 1.26 cm2 AoV Area (VTI): 1.44 cm2, 1.44 cm2 Peak Velocity(Antegrade Flow): 1.55 m/s Peak Gradient(Antegrade Flow): 9.58 mm[Hg] Mean Velocity(Antegrade Flow): 1.01 m/s Mean Gradient(Antegrade Flow): 4.77 mm[Hg] Velocity Time Integral: 32.32 cm Tricuspid Valve Peak Velocity (Regurgitant Flow): 2.39 m/s, 2.42 m/s, 2.61 m/s Pulmonic Valve Peak Velocity: 0.70 m/s Peak Gradient: 1.87 mm[Hg], 2.07 mm[Hg] Right Atrium Right Atrium Systolic Pressure: 25.92 ml, 25.92 ml Dictated by: Inga Ovalles M.D. on 06/04/2023 at 09:08 Approved by: Inga Ovalles M.D. on 06/04/2023 at 09:15
--- NOTE | 2023-06-02 21:49 | P.PN_ITS ---
Progress Note: Subjective Subjective Interval history: CC: Slurred speech HPI: This is a 87-year-old female, resident of memory care who presents for evaluation of above complaints. Patient's past medical history is significant for dementia, type 2 diabetes, hyperlipidemia, hypertension, heart failure, hypertrophic cardiomyopathy, A-fib. Patient unable to provide any information. All data obtained from the medical records. The patient presents by squad for a couple episodes of slurring speech today. Patient is alert and oriented x1 and this is her normal. There is no family here and HPI limited by patient condition. The only information we have is the last episode of slurred speech lasted for 30 seconds 1 hour ago. The patient was evaluated by teleneurologist who recommended hospital monitoring with additional stroke work-up. Apparently patient's 2 sons arrived to emergency room late on and 1 son states that he was with her an hour prior to admission and that patient's words were garbled. He states that she has had multiple TIAs in the past and she is on Plavix and Eliquis. Son states that she can say her name, but as far as following commands, she may have to be asked multiple times. Exam Narrative Exam Narrative: Physical Exam: Not in distress, pleasant, confused, cooperative, Head - atraumatic, eyes - pupils equal, round, reactive to light, extra ocular movement intact, MMM Neck - supple, thyroid not enlarged, LN not palpated Lungs - clear to auscultation, no dullness on percussion CVS - heart sounds S1, S2, no additional murmurs gallop, regular rate and rh ythm Gastrointestinal?abdomen is soft, non-tender, non-distended, no organomegaly, positive bowel sounds Extremities no clubbing, cyanosis or edema Neurological?cranial nerve II?XII grossly intact, no meningeal signs, no cerebellar signs, no sensory deficit Musculoskeletal - DJD related changes in multiple joints, no effusions, ROM preserved Dermatological - the skin dry, warm, no rashes Psychiatric?patient is AAO X 1, patient has normal affect Constitutional Vital Signs, click to edit/add: Last Vital Signs Temp 98.3 F 06/02/23 18:32 Pulse 90 06/02/23 21:00 Resp 22 06/02/23 21:00 BP 179/98 H 06/02/23 21:00 Pulse Ox 95 06/02/23 18:35 O2 Del Method Room Air 06/02/23 18:32 Progress Note: Objective Labs Labs: Short CBC 06/02/23 Range/Units 18:41 WBC 8.5 (4.0-11.0) 10^3/uL Hgb 12.1 (12.0-16.0) g/dL Hct 36.2 (36.0-48.0) % Plt Count 221 (150-450) 10^3/uL BMP 06/02/23 18:41 Sodium 138 Potassium 4.4 Chloride 102 Carbon Dioxide 29.4 BUN 13.0 Creatinine 0.84 Glucose 129 H Calcium 9.3 Liver Function 06/02/23 Range/Units 18:41 Total Bilirubin 0.6 (0.2-1.0) mg/dL AST 22 (15-37) U/L ALT 18 (14-59) U/L Alkaline Phosphatase 76 (46-116) U/L Albumin 3.3 L (3.4-5.0) g/dL Urine 06/02/23 Range/Units 18:30 Urine Color Lt. yellow (YELLOW) Urine Clarity Clear (CLEAR) Urine pH 7.0 (5.0-9.0) Ur Specific [place] 1.015 (1.005-1.025) Urine Protein Negative (NEG/TRACE) mg/dL Urine Glucose (UA) Negative (NEGATIVE) mg/dL Progress Note: A&P Assessment and Plan (1) Slurred speech: Assessment and Plan: - patient admitted with acute neurological deficit - As per evaluation in ER patient did not qualify for a tPa treatment - Admit to telemetry - Frequent neuro-checks - Will obtain MRI of the brain and MRA of the Head and Neck - Will obtain an ECHO with bubbles - F/U with Neurologist for further recommendations Secondary prevention ? will make sure patient is on Full dose of EC ASA and at least moderate potency dose of Atorvastatin unless contraindicated Tertiary prevention ? fall/aspiration precautions are in place - DVT prophylaxis (2) Dementia: Assessment and Plan: Patient is at risk for delirium. Avoid use of psychotropic medications. Daily orientation Qualifiers: Dementia behavioral or psychological symptom: unspecified whether behavioral, psychotic, or mood disturbance or anxiety Dementia severity: unspecified severity Dementia type: unspecified type Qualified Code(s): F03.90 - Unspecified dementia, unspecified severity, without behavioral disturbance, psychotic disturbance, mood disturbance, and anxiety (3) Atrial fibrillation: Assessment and Plan: Currently in normal sinus rhythm. Monitor on telemetry. Verify and resume home medications. Patient is anticoagulated with Eliquis (4) Hyperlipidemia: Assessment and Plan: Lipid profile ordered. Started on Lipitor 80 mg daily (5) Type 2 diabetes mellitus: Assessment and Plan: DM- continue with ADA diet - hold off oral hypoglycemic agents while in the hospital to avoid hypoglycemic episodes - frequent accuchecks (TID AC + HS) - will provide coverage with long acting insulin as well as short acting insulin with meals - adjust as needed - hypoglycemia protocol in place Plan As the provider for the telehealth service, I attest that I introduced myself to the patient, provided my credentials, disclosed by location and determined that based on a review of the patient's chart and discussion with members of the patient's treatment team, telemedicine via real-time, 2 way, and interactive audio and video platform is an appropriate and effective means of providing the service. ?The patient and I mutually agree this visit is appropriate for telemedicine. ?The virtual encounter was taken place from? [place], [place]. ?The encounter took approximately 35 minutes. ?The nurse was present during the entire time and I was able to move the stethoscope in appropriate directions. ?The patient was evaluated at the Hospital ? Portions of this note may be dictated using [employer] voice recognition software. Variances in spelling and vocabulary are possible and unintentional. Not all errors may be caught and/or corrected. Please notify the author if any discrepancies are noted and/or if the meaning of any statement is unclear.? ? Patient verbally consented for treatment via video visit with patient currently located at the [facility] and provider located in [place]. Telemedicine Attestation Telemedicine Attestation I conducted this encounter from [[place]] via secure live, [id number] video conference with the patient, located at [facility] with [TIA]. Prior to the interview, the risks and benefits of telemedicine were discussed with the patient and verbal consent was obtained.
[2023-06-02] MEDS: ATORVASTATIN CALCIUM 40 MG TABLET 80 MG PO (22:18)
[2023-06-03] VITALS (83 sets, daily range): BP systolic 150–202; BP diastolic 66–98; PULSE 56–81; RESP 4–22; TEMP 36.6–37.2; O2SAT 90–98
[2023-06-03] MEDS: ACETAMINOPHEN 325 MG TABLET 650 MG PO (01:19)
[2023-06-03 04:52] LABS: Basophils Absolute Auto 0.1 10^3/uL (0.0-0.1); Basophils Percent Auto 0.6 % (0.2-2.0); Eosinophils Absolute Auto 0.2 10^3/uL (0.0-0.7); Eosinophils Percent Auto 1.7 % (0.9-7.0); Hematocrit 34.8 % (36.0-48.0); Hemoglobin 11.5 g/dL (12.0-16.0); Immature Granulocytes Abs Auto 0.02 10^3/uL (0.00-0.03); Immature Granulocytes Pct Auto 0.2 % (0.0-0.5); Lymphocytes Absolute Auto 1.4 10^3/uL (1.2-3.8); Lymphocytes Percent Auto 16.1 % (20.5-60.0); Mean Corpuscular Hemoglobin 29.6 pg (26.7-34.0); Mean Corpuscular Volume 89.5 fL (81.0-99.0); Mean Platelet Volume 10.9 fL (9.5-13.5); Monocytes Absolute Auto 0.8 10^3/uL (0.3-0.8); Monocytes Percent Auto 8.7 % (1.7-12.0); Neutrophils Absolute Auto 6.3 10^3/uL (1.4-6.5); Neutrophils Percent Auto 72.7 % (43.0-75.0); Platelet Count 197 10^3/uL (150-450); Red Blood Count 3.89 10^6/uL (4.20-5.40); Red Cell Distribution Width 12.7 % (11.0-15.0); White Blood Count 8.7 10^3/uL (4.0-11.0)
[2023-06-03 05:22] LABS: Anion Gap 10.3; BUN Creatinine Ratio 13.6; Calcium 8.8 mg/dL (8.5-10.1); Carbon Dioxide 27.9 mmol/L (21.0-32.0); Chloride 102 mmol/L (98-107); Chol HDL Ratio 3.6; Cholesterol 164 mg/dL (<=200); Estimated GFR (African America >60 (>=60); Estimated GFR (Non-African Ame >60 (>=60); Glucose 138 mg/dL (74-106); HDL Cholesterol 46 mg/dL (40-60); LDL Cholesterol Calculated 92.2 mg/dL; Potassium 3.2 mmol/L (3.5-5.1); Sodium 137 mmol/L (136-145); Triglycerides 129 mg/dL (<=150); VLDL CHOLESTEROL 25.8 mg/dL
--- NOTE | 2023-06-03 08:50 | MR_ITS ---
[facility] [id number] Patient Name: TORIBIO MASTERS MRN: [id number] date: 1935 Sex: F Assigned Patient Location: ICU Current Patient Location: ICU Accession/Order Number: [id number] Exam Date: 06/03/2023 14:24 Report Date: 06/03/2023 15:28 At the request of: JERMAINE BRIAN Procedure: MR head/brain wo con MR head/brain wo con, 06/03/2023 2:24 PM EDT INDICATION: CVA/TIA COMPARISON: CTA dated 06/02/2023 TECHNIQUE: On the diffusion images were obtained. FINDINGS: This study is nondiagnostic as only the diffusion images were obtained. There is no restricted diffusion. Diffuse cerebral atrophy. MR/MR head/brain wo con IMPRESSION: Nondiagnostic imaging due to patient's uncooperation. Electronically authenticated by: GLADYS JACOB Date: 06/03/2023 15:28
[2023-06-03] MEDS: CLOPIDOGREL BISULFATE 75 MG TABLET PO (09:18)
[2023-06-03] MEDS: METOPROLOL TARTRATE 25 MG TABLET PO (09:18)
[2023-06-03] MEDS: SENNOSIDES 8.6 MG TABLET PO (09:18)
[2023-06-03] MEDS: OXYBUTYNIN CHLORIDE 5 MG TAB XL PO (09:18)
[2023-06-03] MEDS: SERTRALINE HCL 50 MG TABLET 25 MG PO (09:18)
[2023-06-03] MEDS: OMEPRAZOLE 20 MG CAPSULE.DR PO (09:18)
[2023-06-03] MEDS: APIXABAN 5 MG TABLET 2.5 MG PO (09:19)
[2023-06-03] MEDS: ISOSORBIDE DINITRATE 30 MG TABLET PO (09:44)
--- NOTE | 2023-06-03 10:20 | CM.NOTE ---
Rounds made with Dr. Cruz, pt awaiting MRI and neurology consult.
--- NOTE | 2023-06-03 10:25 | P.HP_ITS ---
Patient seen and examined, agree with assessment and plan below. Presented with slurred speech and history of CVA and dementia. Symptoms most likely related to worsening dementia. Diagnosis: 1. Slurred speech 2. Dementia 3. Cerebrovascular disease 4. DM2 5. Dyslipidemia 6. Paroxysmal afib 7. CAD 8. Cardiomyopathy H&P: HPI History of Present Illness Chief complaint: CVA R/O STROKE Narrative: Date/time of exam: 06/03/23 7521 This is an 87-year-old female patient who is a resident of a local SNF memory care unit, who presents to the ED yesterday evening complaining of acute episode of aphasia and garbled speech. She has a past medical history of dementia, DM 2, hyperlipidemia, hypertension, heart failure, hypertrophic cardiomyopathy, and A-fib on DOAC therapy. Per the medical record the family and SNF reported brief episodes of staring where the patient was unable to respond verbally as normal. Yesterday evening her son observed acute onset of garbled speech that was apparently nonsensical answers. There is also reports of slurred speech from the SNF documented. The family reports that the patient usually is able to carry on a conversation although she does have difficulty with word finding and confusion at times due to her dementia. Work-up in the ED was negative for any acute finding. Her chest x-ray was unremarkable. EKG showed sinus rhythm with first-degree AV block. CT of the head and CTA of the head and neck were both unremarkable without acute infarctions or significant occlusion/stenosis. The ED provider spoke with telestroke and they recommended observation admission for further neurologic work-up, including 2D echo and an MRI of the brain. She was admitted last night in observation to the hospitalist service. At the time of my exam this morning the patient is sitting up in a bedside chair visiting with her son. She is awake, alert, and answers questions and follows commands appropriately. She is oriented to self and partially to place but not time. When asked where she is she states I am in a? Special office . She was clearly searching for a word that she could not find and substituted special office probably for hospital. She is aware she's not in her usual living situation. Her son at the bedside states that normally she is able to carry on a conversation and would be able to state she was in the hospital. There is no evidence of slurred, garbled speech, or any other acute focal deficit at this time. Patient denies headache, dizziness, chest pain, shortness of breath, abdominal pain, or N/V. 2D Echo and MRI are still pending at this time. Once these are obtained and if unremarkable, the patient will likely be discharged back to her home facility. Review of Systems ROS Narrative Due to pt's dementia, a full ROS is not possible but some questions answered appropriately. Reliability of answers is unclear. Status of ROS other (See above) [facility] Medical History (Updated 06/03/23 @ 11:03 by Chata Solo NP) Anemia ?D64.9 - Anemia, unspecified (ICD-10) Atrial fibrillation ?I48.91 - Unspecified atrial fibrillation (ICD-10) Cerebral infarction ?I63.9 - Cerebral infarction, unspecified (ICD-10) Cognitive communication deficit ?R41.841 - Cognitive communication deficit (ICD-10) Episode of change in speech ?R47.89 - Other speech disturbances (ICD-10) Fracture of right femur ?S72.91XA - Unspecified fracture of right femur, initial encounter for closed fracture (ICD-10) GERD (gastroesophageal reflux disease) ?K21.9 - Gastro-esophageal reflux disease without esophagitis (ICD-10) Heart failure ?I50.9 - Heart failure, unspecified (ICD-10) Hypertension ?I10 - Essential (primary) hypertension (ICD-10) Hypo-osmolar hyponatremia ?E87.1 - Hypo-osmolality and hyponatremia (ICD-10) Hypotension ?I95.9 - Hypotension, unspecified (ICD-10) Major depressive disorder ?F32.9 - Major depressive disorder, single episode, unspecified (ICD-10) Near syncope ?R55 - Syncope and collapse (ICD-10) Pulmonary hypertension ?I27.20 - Pulmonary hypertension, unspecified (ICD-10) Ventricular premature depolarization ?I49.3 - Ventricular premature depolarization (ICD-10) Social History Smoking status: Never smoker Meds Home Medications and Allergies Home Medications Medication Instructions Recorded Confirmed Type albuterol sulfate 90 mcg/actuation 1 inh inhalation Q6H PRN shortness 06/02/23 06/02/23 History breath activated powder inhaler of breath apixaban 2.5 mg tablet (Eliquis) 2.5 mg PO DAILY 06/02/23 06/02/23 History atorvastatin 40 mg tablet 40 mg PO DAILY 06/02/23 06/02/23 History benzonatate 100 mg capsule 100 mg PO TID PRN cough 06/02/23 06/02/23 History calcium citrate 315 mg 1 tab PO QAM 06/02/23 06/02/23 History calcium-vitamin D3 6.25 mcg (250 unit) tablet cephalexin 500 mg capsule 500 mg PO QDAY 06/02/23 06/03/23 History clopidogrel 75 mg tablet 75 mg PO DAILY 06/02/23 06/02/23 History docusate sodium 100 mg capsule 100 mg PO BID 06/02/23 06/02/23 History (Colace) isosorbide dinitrate 30 mg tablet 30 mg PO DAILY 06/02/23 06/02/23 History loratadine 10 mg tablet (Claritin) 10 mg PO DAILY PRN allergic 06/02/23 06/02/23 History symptoms metoprolol tartrate 25 mg tablet 25 mg PO BID 06/02/23 06/02/23 History oxybutynin chloride 5 mg 5 mg PO DAILY 06/02/23 06/02/23 History tablet,extended release 24 hr pantoprazole 20 mg tablet,delayed 20 mg PO DAILY 06/02/23 06/02/23 History release sennosides 8.6 mg capsule (senna) 8.6 mg PO DAILY 06/02/23 06/02/23 History sertraline 25 mg tablet 25 mg PO DAILY 06/02/23 06/02/23 History Allergies Allergy/AdvReac Type Severity Reaction Status Date / Time pravastatin Allergy Unknown Verified 06/02/23 18:40 Exam Constitutional Vital Signs, click to edit/add: Last Vital Signs Temp 98.0 F 06/03/23 08:00 Pulse 64 06/03/23 10:00 Resp 15 06/03/23 10:00 BP 150/66 H 06/03/23 09:48 Pulse Ox 96 06/03/23 08:00 O2 Del Method Room Air 06/03/23 08:00 Common normals: no apparent distress, oriented x3, alert and well nourished General appearance: cooperative Orientation/consciousness: Yes awake HENNY Common normals: normocephalic, head/scalp atraumatic, hearing grossly normal bilaterally, external ears normal, external nose normal and moist oral mucous membranes Head and scalp: normocephalic and atraumatic Face and sinus: normal facial exam Nose: external nose normal External ear: external ears normal Eye Common normals: PERRL, EOMs intact bilaterally, conjunctivae normal and no scleral icterus General eye: normal appearance of both eyes Alignment: alignment normal Eyelid: eyelids normal Conjunctiva: conjunctiva(e) normal Pupil: PERRL Neck & C-Spine Common normals: full ROM, supple and no JVD Chest Common normals: inspection of chest normal Chest: symmetrical chest wall rise Respiratory Common normals: normal respiratory effort, no retractions and no use of accessory muscles Effort & inspection: able to speak in complete sentences Auscultation: crackles (Faint LLL) Cardio Common normals: no JVD, regular rate, regular rhythm, S1 normal heart sound, S2 normal heart sound, no gallops, no clicks, no rub and peripheral pulses 2+ throughout Heart sounds: murmur (HSM 4/6) GI Common normals: Normal to inspection, nondistended, normoactive bowel sounds present, soft to palpation, non-tender, no hepatosplenomegaly, no masses and no bruits Palpation: soft and no hepatosplenomegaly Bladder/kidney exam: bladder normal to palpation Back & Pelvis Common normals: thoracic and lumbar spine normal to inspection Extremity Common normals: normal capillary refill and no pedal edema General: normal exam except as noted; no clubbing and no cyanosis Neuro [place] Coma Scale: GCS not evaluated Common normals: CN's II-XII intact bilaterally, moves all extremities and no focal motor deficits Sensorium/orientation: awake, alert, oriented to person and oriented to place (Partially); not oriented to time Speech: speech normal and expressive aphasia (Possible intermittent aphasia vs dementia word finding) Motor exam: strength 5/5 throughout Psych Common normals: affect normal and activity/motor behavior normal Thought process: confused Attention/concentration: concentration grossly intact Memory/cognition: memory grossly impaired Insight: limited Judgement: limited Results Labs Labs: Short CBC 06/02/23 06/03/23 Range/Units 18:41 03:55 WBC 8.5 8.7 (4.0-11.0) 10^3/uL Hgb 12.1 11.5 L (12.0-16.0) g/dL Hct 36.2 34.8 L (36.0-48.0) % Plt Count 221 197 (150-450) 10^3/uL BMP 06/02/23 06/03/23 18:41 03:55 Sodium 138 137 Potassium 4.4 3.2 L Chloride 102 102 Carbon Dioxide 29.4 27.9 BUN 13.0 11.0 Creatinine 0.84 0.81 Glucose 129 H 138 H Calcium 9.3 8.8 Liver Function 06/02/23 Range/Units 18:41 Total Bilirubin 0.6 (0.2-1.0) mg/dL AST 22 (15-37) U/L ALT 18 (14-59) U/L Alkaline Phosphatase 76 (46-116) U/L Albumin 3.3 L (3.4-5.0) g/dL Urine 06/02/23 Range/Units 18:30 Urine Color Lt. yellow (YELLOW) Urine Clarity Clear (CLEAR) Urine pH 7.0 (5.0-9.0) Ur Specific [place] 1.015 (1.005-1.025) Urine Protein Negative (NEG/TRACE) mg/dL Urine Glucose (UA) Negative (NEGATIVE) mg/dL Pulse Oximetry Attestation: I have reviewed the pertinent pulse oximetry results. Assessment and Plan Assessment and Plan (1) Suspected cerebrovascular accident: Assessment and Plan: ACUTE * Adm observation * Episodic, self limited aphasia vs dysarthria vs dysphasia * r/o CVA/TIA * May reflect advancing dementia rather than acute event * UA neg, no leukocytosis. No indication of acute infectious process associated metabolic encephalopathy * CT brain, CTA head/neck unremarkable for acute infarction or hemorrhage * Telestroke contacted in ED. Recommend further work up but do not definitively diagnose CVA at this time * Obtain 2D Echo w/ bubble study to assess for PFO * Obtain MRI to assess definitively for acute ischemia * Consult Telestroke for further recommendations after these tests are obtained * Pt already on Plavix and Eliquis. DAPT w/ aspirin is likely contraindicated d/t high fall risk and already on platelet inhibitor and DOAC * Defer to Telestroke service if adding aspirin is recommended * Pt moderately hypertensive in ED and overnight * Allow permissive HTN for now as acute CVA is suspected * Recommend daily VS x 2 weeks after discharge and consideration of HTN med adjustments if she remains above goal. * History of severe hypotension on wakening in the past so we are not going to be aggressive about BP management at this time. * Possible d/c after MRI and 2D echo are obtained (2) Dementia: Assessment and Plan: CHRONIC * Resides in SNF memory unit * Not on any dementia specific medications at this time * Defer to outpatient neurology follow up if dementia medications are indicated Qualifiers: Dementia behavioral or psychological symptom: unspecified whether behavioral, psychotic, or mood disturbance or anxiety Dementia severity: unspecified severity Dementia type: unspecified type Qualified Code(s): F03.90 - Unspecified dementia, unspecified severity, without behavioral disturbance, psychotic disturbance, mood disturbance, and anxiety (3) Atrial fibrillation: Assessment and Plan: CHRONIC * Paroxysmal, currently in SR * On chronic DOAC therapy - continue (4) Hyperlipidemia: Assessment and Plan: CHRONIC * Continue home statin (5) Type 2 diabetes mellitus: Assessment and Plan: CHRONIC * Apparently diet controlled * Not on insulin or glycemic modulating medications (6) Heart failure: Assessment and Plan: CHRONIC * Appears euvolemic * Not on diuretic therapy * 2D Echo today - significant HSM noted on exam, but apparently this is chronic per son at bedside (7) Hypertension: Assessment and Plan: CHRONIC * Home imdur and lopressor originally ordered by dyer and washer * Hold further doses for now for permissive HTN for 24-48 hrs, then resume
--- NOTE | 2023-06-03 10:25 | CM.NOTE ---
Medicare Outpatient Observation Notice discussed with pt and son. Son verbalizes understanding and signs paper for pt. Original given to son and copy placed on pt's chart.
--- NOTE | 2023-06-03 10:31 | PC.NURSE ---
Telestroke consult order placed. Contacted Telestroke coordinator [phone] and spoke with Lorrie. States will contact Nicole Pappas and have her reach out to this nurse to coordinate consult.
--- NOTE | 2023-06-03 11:39 | SWNOTE1 ---
Pt is from [facility] unit. SW sent updates to [place]. Potential discharge back today depending on MRI and neurology consult.
[2023-06-03 12:03] LABS: Glucometer 151 mg/dL (74-106)
[2023-06-03] MEDS: ZINC OXIDE 30% CREAM 113.4 GM TUBE 1 APPLIC TOPICAL (16:04)
--- NOTE | 2023-06-03 20:07 | PC.NURSE ---
No slurred speech noted, patient was asked name and patient stated I'm not giving you my information . Speech was clear. Patient repositioned in bed, bed alarm on, call light within isaura.
[2023-06-03 20:52] LABS: Glucometer 171 mg/dL (74-106)
[2023-06-03] MEDS: INSULIN ASPART 300 UNIT/3 ML PEN SUBQ (21:10)
[2023-06-03] MEDS: ATORVASTATIN CALCIUM 40 MG TABLET 80 MG PO (21:10)
[2023-06-03] MEDS: DOCUSATE SODIUM 100 MG CAPSULE PO (21:10)
[2023-06-04 06:00] VITALS: BP 176/94; PULSE 76; RESP 18; TEMP 36.7; O2SAT 95
[2023-06-04 07:58] LABS: Glucometer 135 mg/dL (74-106)
[2023-06-04 07:59] VITALS: RESP 18
[2023-06-04] MEDS: DOCUSATE SODIUM 100 MG CAPSULE PO (08:09)
[2023-06-04] MEDS: OMEPRAZOLE 20 MG CAPSULE.DR PO (08:10)
[2023-06-04] MEDS: OXYBUTYNIN CHLORIDE 5 MG TAB XL PO (08:10)
[2023-06-04] MEDS: SENNOSIDES 8.6 MG TABLET PO (08:10)
[2023-06-04] MEDS: SERTRALINE HCL 50 MG TABLET 25 MG PO (08:11)
[2023-06-04] MEDS: APIXABAN 5 MG TABLET 2.5 MG PO (08:11)
[2023-06-04] MEDS: CLOPIDOGREL BISULFATE 75 MG TABLET PO (08:13)
--- NOTE | 2023-06-04 10:47 | CM.NOTE ---
Rounds made with Dr. Cruz, pt having EEG completed at this time. Dr. Cruz will see pt after procedure.
--- NOTE | 2023-06-04 10:52 | SWNOTE1 ---
SKYLAR did call and speak with Gunjan at [facility] in regards to pt's baseline. She is in the memory unit. She does usually walk with a walker with assistance. Skilled was mentioned, SKYLAR to see how she does with therapy today and also speak with family.
--- NOTE | 2023-06-04 11:17 | PT.DAILY ---
Physical Therapy Daily Note PT Daily Note/Assess Start: 06/04/23 11:14 Freq: Status: Active Protocol: Document 06/04/23 11:15 RENEE (Rec: 06/04/23 11:17 RENEE [id number]) Visit Not Completed Visit Not Completed Visit Not Completed Due to: Pt level of alertness,Pt refusing Other Reason Visit Not Completed Pt unwilling to participate on this date. Son is present throughout session and he also attempted to motivate pt. Pt adamantly refuses and does not want therapist to stop back later today. Son seems frustrated with pt's decline and apologizes for her behavior. I will follow up tomorrow if appropriate. Physical Therapy Daily Note/Assessment Time In/Time Out Time In 11:00 Time Out 11:05 GG. Functional Abilities and Goals-Complete for Swing Bed Patients Only [id number]. Self-Care [id number]. Mobility
--- NOTE | 2023-06-04 11:27 | SWNOTE1 ---
SKYLAR spoke with pt's son in regards to returning to memory unit or attempting to have shrimp trawler captain at [facility]. SKYLAR asked if therapy had been in yet and he stated they were and she refused. SKYLAR asked pt's son what his thoughts were on pt going back to memory unit versus going skilled. He was in agreement with her returning to memory unit. SKYLAR updated nursing and nurse practitioner. SW to let Christina know as well.
[2023-06-04] MEDS: ISOSORBIDE DINITRATE 30 MG TABLET PO (11:49)
[2023-06-04] MEDS: METOPROLOL TARTRATE 25 MG TABLET PO (11:49)
[2023-06-04 11:54] LABS: Glucometer 129 mg/dL (74-106)
--- NOTE | 2023-06-04 13:30 | P.DS_ITS ---
Patient seen and examined, agree with assessment and plan below. Presented with slurred speech and history of CVA and dementia. MRI nondiagnostic as patient would not stay still. Teleneurology wanted EEG and will be read at later date. Symptoms most likely related to worsening dementia. Diagnosis: 1. Slurred speech 2. Dementia 3. Cerebrovascular disease 4. DM2 5. Dyslipidemia 6. Paroxysmal afib 7. CAD 8. Cardiomyopathy DS: Providers Provider Date of admission: 06/02/23 21:37 Primary care physician: SKYLA DILLARD DO Consults: 06/02/23 21:41 Physical Therapy Eval and Treat Routine Reason for consultation: TIA 06/02/23 21:46 Occupational Therapy Eval and Treat Routine Reason for consultation: TIA Speech Therapy Eval and Treat Routine Reason for consultation: slurred speech 06/03/23 Consult to TeleNeurology Routine Reason for consultation: Staring spells, possible seizures Has provider been notified: Yes 06/03/23 10:21 Consult to Telestroke Routine Reason for consultation: Slurred speech, cerebrovascular disease 06/03/23 10:22 Consult to Telestroke Routine Reason for consultation: Possible CVA, FU ED Stroke call Has provider been notified: No Discharging clinician: Chata Solo DS: Diagnosis Discharge Diagnosis (1) Suspected cerebrovascular accident: (2) Dementia: Qualifiers: Dementia behavioral or psychological symptom: unspecified whether behavi oral, psychotic, or mood disturbance or anxiety Dementia severity: unspecified severity Dementia type: unspecified type Qualified Code(s): F03.90 - Unspecified dementia, unspecified severity, without behavioral disturbance, psychotic disturbance, mood disturbance, and anxiety (3) Atrial fibrillation: (4) Hyperlipidemia: (5) Type 2 diabetes mellitus: (6) Heart failure: (7) Hypertension: DS: Summary Hospital Course Hospital Course: The patient was admitted with equivocal neurologic findings including expressive aphasia and decreased responsiveness that was self-limiting and brief, concerning for possible CVA. She was initially seen in consult by the stroke team after CT of the brain and CTA of the head/neck were obtained in the ED (negative for acute findings) and admission for further diagnostic imaging was recommended. An MRI was attempted but the patient was unable to cooperate fully with the exam and there was too much motion for the radiologist to give a diagnostic reading. No definitive evidence of CVA was found. A 2D Echo was unremarkable and the bubble portion was negative for intracardiac shunting. Follow-up with telemetry neuro was recommended by the telestroke team and she was seen by them the following day. They recommended an EEG as there was some concern for possible seizure-like activity. On the day of discharge an EEG was obtained but the neurology interpretation is pending. No seizure activity was noted by staff during her admission. The telemetry neuro team saw the patient on the day of discharge and recommended outpatient follow-up in 2 to 4 weeks. We have not changed any home medications for the patient at the time of discharge. We did not add aspirin for DAPT as she is already on Plavix and Eliquis. Her symptoms have completely resolved and we clinically suspect this may reflect advancing dementia with waxing and waning characteristics. We defer to the outpatient neurology team if further interventions are indicated. Time Spent with Patient Time attestation: Total time spent providing and/or coordinating discharge services: Time spent: greater than 30 minutes Specific discharge activities: Physical exam, discussion of discharge plan, questions answered. Exam Constitutional Vital Signs, click to edit/add: Last Vital Signs Temp 98.1 F 06/04/23 06:00 Pulse 76 06/04/23 06:00 Resp 18 06/04/23 07:59 BP 176/94 H 06/04/23 06:00 Pulse Ox 95 06/04/23 06:00 O2 Del Method Room Air 06/04/23 06:00 Common normals: no apparent distress and alert General appearance: cooperative Orientation/consciousness: Yes awake, Yes oriented to person and Yes confused; not oriented to place and not oriented to time [facility] Common normals: normocephalic and head/scalp atraumatic Eye Common normals: PERRL, EOMs intact bilaterally, conjunctivae normal and no scleral icterus Neck & C-Spine Common normals: no JVD Respiratory Common normals: normal respiratory effort, no use of accessory muscles and clear to auscultation bilaterally Effort & inspection: able to speak in complete sentences and symmetric chest movement Cardio Common normals: no JVD, regular rate, regular rhythm, S1 normal heart sound, S2 normal heart sound, no gallops, no clicks, no murmurs, no rub and peripheral pu lses 2+ throughout GI Common normals: Normal to inspection, nondistended, normoactive bowel sounds present, soft to palpation and non-tender Palpation: soft Bladder/kidney exam: bladder normal to palpation Extremity Common normals: normal to inspection, full ROM, normal capillary refill and no pedal edema General: no clubbing and no cyanosis Neuro Common normals: oriented x3, CN's II-XII intact bilaterally, moves all extremities, no focal motor deficits and no sensory deficits noted Sensorium/orientation: awake and alert Speech: speech normal Psych Common normals: activity/motor behavior normal Appearance: grossly normal Attention/concentration: attention grossly intact Memory/cognition: memory grossly impaired and cognition grossly intact Insight: limited Judgement: limited DS: Data Data Completed and Pending Labs on day of discharge: Labs from last 24 hours 06/04/23 06/04/23 06/03/23 11:53 07:56 20:51 POC Glucose 129 H 135 [address] scan - head: Attestation: I have reviewed the pertinent imaging results. Radiologist's impression: IMPRESSION: No CT evidence of acute intracranial abnormality. If there is sufficient clinical concern for acute brain parenchymal pathology, consider MRI for further evaluation. A remote lacunar infarct in left basal ganglia. Moderate to severe chronic microvascular ischemia and involutional changes. CTA head/neck: Attestation: I have reviewed the pertinent imaging results. Radiologist's impression: IMPRESSION: Scattered atherosclerotic calcification without large vessel occlusion or high-grade stenosis in the head or neck. Less than 10% right and 43% left ICA stenosis by NASCET criteria Chest x-ray: Attestation: I have reviewed the pertinent imaging results. Radiologist's impression: IMPRESSION: No acute cardiopulmonary abnormality. 2D Echo: Attestation: I have reviewed the pertinent imaging results. Radiologist's impression: CONCLUSION: 1. Global left ventricular systolic function is normal; visually estimated ejection fraction is 60 to 65% 2. The right ventricle is normal in size and systolic function 3. Grade 2, moderate diastolic dysfunction 4. The left atrium is moderately dilated 5. Moderate, eccentric mitral regurgitation 6. Agitated saline contrast reveals no intracardiac shunt MRI - head: Attestation: I have reviewed the pertinent imaging results. Radiologist's impression: IMPRESSION: Nondiagnostic imaging due to patient's uncooperation. Discharge Plan Discharge Disposition: Home, Self-Care Condition: Good Discharge Medications: Continued clopidogrel 75 mg tablet 75 mg PO DAILY Eliquis 2.5 mg tablet 2.5 mg PO DAILY pantoprazole 20 mg tablet,delayed release (DR/EC) 20 mg PO DAILY cephalexin 500 mg capsule 500 mg PO QDAY Hold Instructions: Started in December 2022 Patient Comments: STARTED 06-01-23, DAY SUPPLY oxybutynin chloride 5 mg tablet extended release 24hr 5 mg PO DAILY sertraline 25 mg tablet 25 mg PO DAILY albuterol sulfate 90 mcg/actuation aerosol powdr breath activated 1 inh inhalation Q6H PRN (Reason: shortness of breath) atorvastatin 40 mg tablet 40 mg PO DAILY docusate sodium [Colace] 100 mg capsule 100 mg PO BID senna 8.6 mg capsule 8.6 mg PO DAILY calcium citrate-vitamin D3 315 mg-6.25 mcg (250 unit) tablet 1 tab PO QAM loratadine [Claritin] 10 mg tablet 10 mg PO DAILY PRN (Reason: allergic symptoms) benzonatate 100 mg capsule 100 mg PO TID PRN (Reason: cough) Held isosorbide dinitrate 30 mg tablet 30 mg PO DAILY Hold Instructions: Resume on 06/05/23. metoprolol tartrate 25 mg tablet 25 mg PO BID Hold Instructions: Resume on 06/05/23. Activity: increase activity as tolerated Diet: advance to your usual diet Print Language: Hebrew Activity Restrictions/Additional Instructions: - Obtain VS daily x 2 weeks. Consider BP med adjustments if remains hyp ertensive - PT recommends further strengthening services. 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
[2023-06-04 14:00] VITALS: BP 164/80; PULSE 70; RESP 16; TEMP 36.8; O2SAT 93
--- NOTE | 2023-06-04 14:02 | SWNOTE1 ---
Pt is ready for discharge. SW set up trips and they will be here between 4:15-4:30. SW sent over dc orders and updated packet. SW to notify nursing, family, and [place] of time. Pt is returning to [facility] unit assisted living.
--- NOTE | 2023-06-05 07:46 | CM.DCFOLLOWU ---
No f/u call. Pt is in Memory Unit at [facility].
== END 2023-06-04 16:17 | disposition home or self-care (01) ==
LOC: ER 20:51 → ICU 21:36 → MS 06-03 17:14
PROVIDERS: Internal Medicine; Nurse Practitioner; Physician Assistant; Admitting Provider Family Medicine; Emergency Provider Emergency Medicine; PCP Family Medicine; Visit Provider Family Medicine
DX: F03.90 Unspecified dementia, unspecified severity, without behavioral disturbance, psychotic disturbance, mood disturbance, and anxiety (principal); R47.81 Slurred speech; I67.9 Cerebrovascular disease, unspecified; E11.9 Type 2 diabetes mellitus without complications; E78.5 Hyperlipidemia, unspecified; I48.0 Paroxysmal atrial fibrillation; I25.10 Atherosclerotic heart disease of native coronary artery without angina pectoris; I42.2 Other hypertrophic cardiomyopathy; I11.0 Hypertensive heart disease with heart failure; I50.9 Heart failure, unspecified; K21.9 Gastro-esophageal reflux disease without esophagitis; I27.20 Pulmonary hypertension, unspecified; F32.9 Major depressive disorder, single episode, unspecified; I44.0 Atrioventricular block, first degree; Z86.73 Personal history of transient ischemic attack (TIA), and cerebral infarction without residual deficits; Z79.02 Long term (current) use of antithrombotics/antiplatelets; Z79.01 Long term (current) use of anticoagulants; Z79.899 Other long term (current) drug therapy; Z87.81 Personal history of (healed) traumatic fracture
CPT/HCPCS: 36415; 70450; 70496; 70498; 70551; 71045; 80048; 80053; 80061; 81001; 82948; 83735; 83880; 84443; 84484; 85025; 85610; 93005; 93306; 95819; 97161; 97165; 99285; G0378; Q3014; Q9967

== ENCOUNTER 2023-12-04 19:26 | Inpatient (IN) | payer MEDICARE, SELFPAY ==
[2023-12-04 19:28] VITALS: BP 198/85; PULSE 92; TEMP 37.1; O2SAT 87
--- NOTE | 2023-12-04 19:33 | CT_ITS ---
The [address] [address] Patient Name: TORIBIO MASTERS MRN: [id number] date: 1935 Sex: F Assigned Patient Location: ER Current Patient Location: ER Accession/Order Number: [id number] Exam Date: 12/04/2023 20:50 Report Date: 12/04/2023 21:44 At the request of: ZENON VASQUEZ Procedure: CT cervical spine wo con EXAM: CT cervical spine wo con HISTORY: Fall COMPARISON: None. TECHNIQUE: CT cervical spine without contrast. Multiplanar reformats obtained. The current study utilizes one or more of the following dose-reduction techniques: automated exposure control, iterative reconstruction, and/or manual adjustment of tube current and voltage for size. FINDINGS: Bones are demineralized. Age expected degenerative changes. No evidence of acute fracture or traumatic malalignment. Spinal canal is grossly patent. No prevertebral edema. Neural foramen grossly patent. CT/CT cervical spine wo con IMPRESSION: No acute traumatic findings of the cervical spine. Electronically authenticated by: HENNA PHELAN Date: 12/04/2023 21:44
--- NOTE | 2023-12-04 19:33 | XR_ITS ---
The [address] [address] Patient Name: TORIBIO MASTERS MRN: [id number] date: 1935 Sex: F Assigned Patient Location: ER Current Patient Location: ER Accession/Order Number: [id number] Exam Date: 12/04/2023 21:00 Report Date: 12/04/2023 21:46 At the request of: ZENON VASQUEZ Procedure: XR femur RT 2V EXAM: XR femur RT 2V HISTORY: fall COMPARISON: None. TECHNIQUE: 2 views of the right femur. FINDINGS: Antegrade intramedullary raulito and interlocking screws. No evidence of acute fracture, dislocation or soft tissue abnormality. Vascular calcifications. Bones are demineralized. XR/XR femur RT 2V IMPRESSION: No acute findings. Electronically authenticated by: HENNA PHELAN Date: 12/04/2023 21:46
--- NOTE | 2023-12-04 19:33 | XR_ITS ---
The [address] [address] Patient Name: TORIBIO MASTERS MRN: [id number] date: 1935 Sex: F Assigned Patient Location: ER Current Patient Location: ER Accession/Order Number: [id number] Exam Date: 12/04/2023 21:00 Report Date: 12/04/2023 22:00 At the request of: ZENON VASQUEZ Procedure: XR foot RT min 3V EXAM: XR foot RT min 3V HISTORY: fall COMPARISON: None. TECHNIQUE: 3 views right foot FINDINGS: Diffuse osseous demineralization. No acute fracture or aggressive osseous abnormality. Plantar fascia and Achilles tendon enthesophytes are noted. Degenerative changes of the interphalangeal joints of the toes in the midfoot. XR/XR foot RT min 3V IMPRESSION: Degenerative changes of the right foot without acute osseous abnormality. Electronically authenticated by: MICHELE GEORGE Date: 12/04/2023 22:00
--- NOTE | 2023-12-04 19:33 | ECG_ITS ---
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
--- NOTE | 2023-12-04 19:33 | XR_ITS ---
The [address] [address] Patient Name: TORIBIO MASTERS MRN: [id number] date: 1935 Sex: F Assigned Patient Location: ER Current Patient Location: ER Accession/Order Number: [id number] Exam Date: 12/04/2023 21:00 Report Date: 12/04/2023 21:45 At the request of: ZENON VASQUEZ Procedure: XR tibia fibula RT 2V EXAM: XR tibia fibula RT 2V HISTORY: fall COMPARISON: None. TECHNIQUE: 2 views of the right tib-fib FINDINGS: Partially imaged distal femur hardware. Vascular calcifications. Bones are demineralized. No evidence of acute fracture or dislocation. No acute soft tissue abnormality. XR/XR tibia fibula RT 2V IMPRESSION: No acute findings. Electronically authenticated by: HENNA PHELAN Date: 12/04/2023 21:45
--- NOTE | 2023-12-04 19:33 | XR_ITS ---
The [address] [address] Patient Name: TORIBIO MASTERS MRN: [id number] date: 1935 Sex: F Assigned Patient Location: ER Current Patient Location: ER Accession/Order Number: [id number] Exam Date: 12/04/2023 21:00 Report Date: 12/04/2023 21:42 At the request of: ZENON VASQUEZ Procedure: XR chest 1V EXAM: XR chest 1V HISTORY: Fall COMPARISON: 06/02/2023 TECHNIQUE: Single view of the chest FINDINGS: Interstitial prominence. No pneumothorax. Borderline cardiomegaly. No pleural effusion. No dense consolidation. XR/XR chest 1V IMPRESSION: Interstitial prominence, vascular congestion versus atypical infection. Electronically authenticated by: HENNA PHELAN Date: 12/04/2023 21:42
--- NOTE | 2023-12-04 19:33 | XR_ITS ---
The [address] [address] Patient Name: TORIBIO MASTERS MRN: [id number] date: 1935 Sex: F Assigned Patient Location: ER Current Patient Location: ER Accession/Order Number: [id number] Exam Date: 12/04/2023 21:00 Report Date: 12/04/2023 21:47 At the request of: ZENON VASQUEZ Procedure: XR pelvis 1-2V EXAM: XR pelvis 1-2V HISTORY: fall COMPARISON: None. TECHNIQUE: Single view of the pelvis FINDINGS: No proximal femur fracture or hip dislocation. No pelvic fracture or diastases. Right femur fixation hardware noted. Lower lumbar spine degenerative changes. Bones are demineralized. XR/XR pelvis 1-2V IMPRESSION: No acute findings. Electronically authenticated by: HENNA PHELAN Date: 12/04/2023 21:47
--- NOTE | 2023-12-04 19:35 | CT_ITS ---
The [address] [address] Patient Name: TORIBIO MASTERS MRN: [id number] date: 1935 Sex: F Assigned Patient Location: ER Current Patient Location: ER Accession/Order Number: [id number] Exam Date: 12/04/2023 20:40 Report Date: 12/04/2023 21:00 At the request of: ZENON VASQUEZ Procedure: CT head/brain wo con EXAM: CT scan of the head without contrast. Dose reduction technique used: Automated exposure control and/or adjustment of the mA and/or kV according to patient size and/or use of iterative reconstruction technique. REASON FOR EXAM: Fall COMPARISON: CT scan dated 06/02/2023 FINDINGS: No intracranial hemorrhage, mass effect, midline shift, fractures or evidence of acute ischemic infarct. No hydrocephalus. Moderate generalized cerebral and cerebellar volume loss. Moderate small vessel gliosis. Paranasal sinuses and mastoid air cells are clear. Remainder unremarkable. CT/CT head/brain wo con IMPRESSION: No acute intracranial abnormalities. Electronically authenticated by: ANDRE CHIN Date: 12/04/2023 21:00
--- NOTE | 2023-12-04 19:37 | ED.GENADUL1 ---
Documented by User: BENJAMIN Easton 12/04/23 21:20 HPI HPI - General Adult General Chief complaint: Fall Stated complaint: Lower Extremity Pain from fall Time Seen by Provider: 12/04/23 19:32 Source: patient and other Source information: [facility] and EMS report Mode of arrival: ambulance Limitations comment: Pt has history of dementia and confusion History of Present Illness HPI narrative: Patient is an 88-year-old female who presents to the emergency department by EMS from the [facility] where she is a resident for the evaluation of injuries after a fall. Patient has a history of baseline dementia and confusion. A nurses aide witnessed the patient walking with her walker, falling backward and hitting her head on a cabinet. She hit her bottom on the ground. 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 She apparently complained of right hip pain. On arrival to the emergency department, patient complains of pain everywhere . She is borderline hypoxic on room air, she does not wear home oxygen. She is disoriented to place and time. She is anticoagulated with Eliquis and is also on Plavix. Patient states she remembers falling but is not able to tell me why she fell. She denies dizziness, chest pain, shortness of breath Related Data Home Medications ?Medication ?Instructions ?Recorded ?Confirmed albuterol sulfate 90 mcg/actuation 1 inh inhalation Q6H PRN shortness 06/02/23 12/04/23 breath activated powder inhaler of breath apixaban 2.5 mg tablet (Eliquis) 2.5 mg PO DAILY 06/02/23 12/04/23 atorvastatin 40 mg tablet 40 mg PO DAILY 06/02/23 12/04/23 benzonatate 100 mg capsule 100 mg PO TID PRN cough 06/02/23 12/04/23 calcium citrate 315 mg 1 tab PO QAM 06/02/23 12/04/23 calcium-vitamin D3 6.25 mcg (250 unit) tablet cephalexin 500 mg capsule 500 mg PO QDAY 06/02/23 12/04/23 clopidogrel 75 mg tablet 75 mg PO DAILY 06/02/23 12/04/23 docusate sodium 100 mg capsule 100 mg PO BID 06/02/23 12/04/23 (Colace) isosorbide dinitrate 30 mg tablet 30 mg PO DAILY 06/02/23 12/04/23 metoprolol tartrate 25 mg tablet 25 mg PO BID 06/02/23 12/04/23 pantoprazole 20 mg tablet,delayed 20 mg PO DAILY 06/02/23 12/04/23 release sennosides 8.6 mg capsule (senna) 8.6 mg PO DAILY 06/02/23 12/04/23 sertraline 25 mg tablet 25 mg PO DAILY 06/02/23 12/04/23 ondansetron HCl 4 mg tablet mg 12/04/23 oxybutynin chloride 5 mg mg PO 12/04/23 tablet,extended release 24 hr Allergies Allergy/AdvReac Type Severity Reaction Status Date / Time pravastatin Allergy Unknown Verified 12/04/23 19:34 Opioid HPI Opioid Management Most Recent Opioid Data: Last Pain Scale 0 04/10/23 10:56 Review of Systems ROS Status of ROS unobtainable due to mental status [facility] Medical History (Updated 12/04/23 @ 22:49 by Sae Gallardo MD) Hypertension ?I10 - Essential (primary) hypertension (ICD-10) Ventricular premature depolarization ?I49.3 - Ventricular premature depolarization (ICD-10) GERD (gastroesophageal reflux disease) ?K21.9 - Gastro-esophageal reflux disease without esophagitis (ICD-10) Cerebral infarction ?I63.9 - Cerebral infarction, unspecified (ICD-10) Atrial fibrillation ?I48.91 - Unspecified atrial fibrillation (ICD-10) Heart failure ?I50.9 - Heart failure, unspecified (ICD-10) Major depressive disorder ?F32.9 - Major depressive disorder, single episode, unspecified (ICD-10) Hypo-osmolar hyponatremia ?E87.1 - Hypo-osmolality and hyponatremia (ICD-10) Anemia ?D64.9 - Anemia, unspecified (ICD-10) Pulmonary hypertension ?I27.20 - Pulmonary hypertension, unspecified (ICD-10) Fracture of right femur ?S72.91XA - Unspecified fracture of right femur, initial encounter for closed fracture (ICD-10) Cognitive communication deficit ?R41.841 - Cognitive communication deficit (ICD-10) Episode of change in speech ?R47.89 - Other speech disturbances (ICD-10) Hypotension ?I95.9 - Hypotension, unspecified (ICD-10) Near syncope ?R55 - Syncope and collapse (ICD-10) Social History Smoking status: Never smoker Exam Narrative Exam Narrative: Gen.: Awake, alert, in no distress Head: Normocephalic, atraumatic ENT: Moist mucous membranes, No facial or dental injury noted. Respiratory: No respiratory distress, lungs clear bilaterally Cardio: Regular rate and rhythm Gastrointestinal: Abdomen is soft, nondistended and nontender to palpation Extremities: Right lower extremity with hip flexed, diffusely tender to palpation of the entire right lower extremity with no obvious deformity.No bony tenderness of the left or right upper extremity. Psych: Normal mood and affect Neuro: Disoriented to place and time Skin: Warm, dry, intact Constitutional Vital Signs, click to edit/add: Last Vital Signs Temp 98.7 F 12/04/23 19:28 Pulse 79 12/04/23 22:26 Resp 20 12/04/23 22:26 BP 175/81 H 12/04/23 22:26 Pulse Ox 98 12/04/23 22:26 O2 Del Method Room Air, Nasal Cannula 12/04/23 22:26 O2 Flow Rate 4 12/04/23 22:26 Course Vital Signs Vital signs: Vital Signs Temperature 98.7 F 12/04/23 19:28 Pulse Rate 92 H 12/04/23 19:28 Respiratory Rate 18 12/04/23 19:28 Blood Pressure 198/85 H 12/04/23 19:28 Pulse Oximetry 87 L 12/04/23 19:28 Oxygen Delivery Method Room Air 12/04/23 19:28 Temperature 98.7 F 12/04/23 19:28 Pulse Rate 79 12/04/23 22:26 Respiratory Rate 20 12/04/23 22:26 Blood Pressure 175/81 H 12/04/23 22:26 Pulse Oximetry 98 12/04/23 22:26 Oxygen Delivery Method Room Air, Nasal Cannula 12/04/23 22:26 Oxygen Delivery Flow Rate 4 12/04/23 22:26 Medical Decision Making MDM Narrative Medical decision making narrative: 2118: Patient was sent for imaging of the head, C-spine with x-rays of the chest, pelvis, femur, tib-fib and foot. Fentanyl and Zofran given prior to sending the patient for imaging. EKG, labs were obtained. Case is turned over to attending physician at this time. Medical Records Medical records reviewed: Yes I reviewed the patient's medical records Lab Data Lab results reviewed: Yes I reviewed the patient's lab results Labs: Lab Results 12/04/23 Range/Units 19:49 WBC 11.4 H (4.0-11.0) 10^3/uL RBC 4.24 (4.20-5.40) 10^6/uL Hgb 12.5 (12.0-16.0) g/dL Hct 38.7 (36.0-48.0) % MCV 91.3 (81.0-99.0) fL MCH 29.5 (26.7-34.0) pg MCHC 32.3 (29.9-35.2) g/dL RDW 12.7 (11.0-15.0) % Plt Count 196 (150-450) 10^3/uL MPV 10.4 (9.5-13.5) fL Neut % (Auto) 70.9 (43.0-75.0) % Lymph % (Auto) 18.5 L (20.5-60.0) % Randall % (Auto) 5.1 (1.7-12.0) % Eos % (Auto) 1.0 (0.9-7.0) % Baso % (Auto) 0.5 (0.2-2.0) % Neut # (Auto) 8.1 H (1.4-6.5) 10^3/uL Lymph # (Auto) 2.1 (1.2-3.8) 10^3/uL Randall # (Auto) 0.6 (0.3-0.8) 10^3/uL Eos # (Auto) 0.1 (0.0-0.7) 10^3/uL Baso # (Auto) 0.1 (0.0-0.1) 10^3/uL Abs Immat Gran (auto) 0.46 H (0.00-0.03) 10^3/uL Imm/Tot Granulo (auto) 4.0 H (0.0-0.5) % PT 11.2 (9.0-11.6) sec INR 1.06 Sodium 138 (136-145) mmol/L Potassium 4.0 (3.5-5.1) mmol/L Chloride 103 (98-107) mmol/L Carbon Dioxide 28.9 (21.0-32.0) mmol/L Anion Gap 10.1 BUN 14.0 (7.0-18.0) mg/dL Creatinine 0.90 (0.55-1.02) mg/dL Est GFR ( Amer) >60 (>=60) Est GFR (Non-Af Amer) 59 L (>=60) BUN/Creatinine Ratio 15.6 Glucose 194 H (74-106) mg/dL Lactate 2.7 H* (0.4-2.0) mmol/L Calcium 9.4 (8.5-10.1) mg/dL Total Bilirubin 0.6 (0.2-1.0) mg/dL AST 33 (15-37) U/L ALT 33 (14-59) U/L Alkaline Phosphatase 83 (46-116) U/L Troponin I High Sens 12.5 (4.0-51.3) pg/mL NT-Pro-B Natriuret Pep 1167.0 (<=1800.0) pg/mL Total Protein 7.3 (6.4-8.2) g/dL Albumin 3.3 L (3.4-5.0) g/dL Globulin 4.0 g/dL Albumin/Globulin Ratio 0.[address] scan - head: Attestation: I have reviewed the pertinent imaging results. Radiologist's impression: ITS Impressions Cervical Spine CT 12/04/23 19:33 IMPRESSION: No acute traumatic findings of the cervical spine. Electronically authenticated by: HENNA PHELAN Date: 12/04/2023 21:44 Chest X-Ray 12/04/23 19:33 IMPRESSION: Interstitial prominence, vascular congestion versus atypical infection. Electronically authenticated by: HENNA PHELAN Date: 12/04/2023 21:42 Femur X-Ray 12/04/23 19:33 IMPRESSION: No acute findings. Electronically authenticated by: HENNA PHELAN Date: 12/04/2023 21:46 Foot X-Ray 12/04/23 19:33 IMPRESSION: Degenerative changes of the right foot without acute osseous abnormality. Electronically authenticated by: MICHELE GEORGE Date: 12/04/2023 22:00 Pelvis X-Ray 12/04/23 19:33 IMPRESSION: No acute findings. Electronically authenticated by: HENNA PHELAN Date: 12/04/2023 21:47 Tibia/Fibula X-Ray 12/04/23 19:33 IMPRESSION: No acute findings. Electronically authenticated by: HENNA PHELAN Date: 12/04/2023 21:[address] 12/04/23 19:35 IMPRESSION: No acute intracranial abnormalities. Electronically authenticated by: ANDRE CHIN Date: 12/04/2023 21:00 ECG Data Attestation: I personally reviewed and interpreted this ECG as follows: (Normal sinus rhythm at a rate of 83, no acute ST elevation or ectopy. EKG reviewed by attending physician) Discharge Plan Discharge Chief Complaint: Fall Clinical Impression: Inability to walk, Fall Patient Disposition: Admitted as Observation Time of Disposition Decision: 22:49 Condition: Good Documented by User: Sae Gallardo MD 12/04/23 22:49 HPI HPI - General Adult General Chief complaint: Fall Stated complaint: Lower Extremity Pain from fall Time Seen by Provider: 12/04/23 19:32 Related Data Home Medications ?Medication ?Instructions ?Recorded ?Confirmed albuterol sulfate 90 mcg/actuation 1 inh inhalation Q6H PRN shortness 06/02/23 12/04/23 breath activated powder inhaler of breath apixaban 2.5 mg tablet (Eliquis) 2.5 mg PO DAILY 06/02/23 12/04/23 atorvastatin 40 mg tablet 40 mg PO DAILY 06/02/23 12/04/23 benzonatate 100 mg capsule 100 mg PO TID PRN cough 06/02/23 12/04/23 calcium citrate 315 mg 1 tab PO QAM 06/02/23 12/04/23 calcium-vitamin D3 6.25 mcg (250 unit) tablet cephalexin 500 mg capsule 500 mg PO QDAY 06/02/23 12/04/23 clopidogrel 75 mg tablet 75 mg PO DAILY 06/02/23 12/04/23 docusate sodium 100 mg capsule 100 mg PO BID 06/02/23 12/04/23 (Colace) isosorbide dinitrate 30 mg tablet 30 mg PO DAILY 06/02/23 12/04/23 metoprolol tartrate 25 mg tablet 25 mg PO BID 06/02/23 12/04/23 pantoprazole 20 mg tablet,delayed 20 mg PO DAILY 06/02/23 12/04/23 release sennosides 8.6 mg capsule (senna) 8.6 mg PO DAILY 06/02/23 12/04/23 sertraline 25 mg tablet 25 mg PO DAILY 06/02/23 12/04/23 ondansetron HCl 4 mg tablet mg 12/04/23 oxybutynin chloride 5 mg mg PO 12/04/23 tablet,extended release 24 hr Allergies Allergy/AdvReac Type Severity Reaction Status Date / Time pravastatin Allergy Unknown Verified 12/04/23 19:34 Opioid HPI Opioid Management Most Recent Opioid Data: Last Pain Scale 0 04/10/23 10:56 [facility] Medical History (Updated 12/04/23 @ 22:49 by Sae Gallardo MD) Hypertension ?I10 - Essential (primary) hypertension (ICD-10) Ventricular premature depolarization ?I49.3 - Ventricular premature depolarization (ICD-10) GERD (gastroesophageal reflux disease) ?K21.9 - Gastro-esophageal reflux disease without esophagitis (ICD-10) Cerebral infarction ?I63.9 - Cerebral infarction, unspecified (ICD-10) Atrial fibrillation ?I48.91 - Unspecified atrial fibrillation (ICD-10) Heart failure ?I50.9 - Heart failure, unspecified (ICD-10) Major depressive disorder ?F32.9 - Major depressive disorder, single episode, unspecified (ICD-10) Hypo-osmolar hyponatremia ?E87.1 - Hypo-osmolality and hyponatremia (ICD-10) Anemia ?D64.9 - Anemia, unspecified (ICD-10) Pulmonary hypertension ?I27.20 - Pulmonary hypertension, unspecified (ICD-10) Fracture of right femur ?S72.91XA - Unspecified fracture of right femur, initial encounter for closed fracture (ICD-10) Cognitive communication deficit ?R41.841 - Cognitive communication deficit (ICD-10) Episode of change in speech ?R47.89 - Other speech disturbances (ICD-10) Hypotension ?I95.9 - Hypotension, unspecified (ICD-10) Near syncope ?R55 - Syncope and collapse (ICD-10) Social History Smoking status: Never smoker Exam Constitutional Vital Signs, click to edit/add: Last Vital Signs Temp 98.7 F 12/04/23 19:28 Pulse 79 12/04/23 22:26 Resp 20 12/04/23 22:26 BP 175/81 H 12/04/23 22:26 Pulse Ox 98 12/04/23 22:26 O2 Del Method Room Air, Nasal Cannula 12/04/23 22:26 O2 Flow Rate 4 12/04/23 22:26 Course Vital Signs Vital signs: Vital Signs Temperature 98.7 F 12/04/23 19:28 Pulse Rate 92 H 12/04/23 19:28 Respiratory Rate 18 12/04/23 19:28 Blood Pressure 198/85 H 12/04/23 19:28 Pulse Oximetry 87 L 12/04/23 19:28 Oxygen Delivery Method Room Air 12/04/23 19:28 Temperature 98.7 F 12/04/23 19:28 Pulse Rate 79 12/04/23 22:26 Respiratory Rate 20 12/04/23 22:26 Blood Pressure 175/81 H 12/04/23 22:26 Pulse Oximetry 98 12/04/23 22:26 Oxygen Delivery Method Room Air, Nasal Cannula 12/04/23 22:26 Oxygen Delivery Flow Rate 4 12/04/23 22:26 Medical Decision Making [facility] Narrative Medical decision making narrative: 2118: Patient was sent for imaging of the head, C-spine with x-rays of the chest, pelvis, femur, tib-fib and foot. Fentanyl and Zofran given prior to sending the patient for imaging. EKG, labs were obtained. Case is turned over to attending physician at this time. Radiographs are negative, lumbar sacral spine films pending at the time of this dictation. She was unable to ambulate. Findings were discussed with her 2 sons and the patient will be admitted for observation and will likely need physical therapy consult. Findings were discussed with her family. Differential Diagnosis Differential Diagnosis: Fracture, contusions Lab Data Labs: Lab Results 12/04/23 Range/Units 19:49 WBC 11.4 H (4.0-11.0) 10^3/uL RBC 4.24 (4.20-5.40) 10^6/uL Hgb 12.5 (12.0-16.0) g/dL Hct 38.7 (36.0-48.0) % MCV 91.3 (81.0-99.0) fL MCH 29.5 (26.7-34.0) pg MCHC 32.3 (29.9-35.2) g/dL RDW 12.7 (11.0-15.0) % Plt Count 196 (150-450) 10^3/uL MPV 10.4 (9.5-13.5) fL Neut % (Auto) 70.9 (43.0-75.0) % Lymph % (Auto) 18.5 L (20.5-60.0) % Randall % (Auto) 5.1 (1.7-12.0) % Eos % (Auto) 1.0 (0.9-7.0) % Baso % (Auto) 0.5 (0.2-2.0) % Neut # (Auto) 8.1 H (1.4-6.5) 10^3/uL Lymph # (Auto) 2.1 (1.2-3.8) 10^3/uL Randall # (Auto) 0.6 (0.3-0.8) 10^3/uL Eos # (Auto) 0.1 (0.0-0.7) 10^3/uL Baso # (Auto) 0.1 (0.0-0.1) 10^3/uL Abs Immat Gran (auto) 0.46 H (0.00-0.03) 10^3/uL Imm/Tot Granulo (auto) 4.0 H (0.0-0.5) % PT 11.2 (9.0-11.6) sec INR 1.06 Sodium 138 (136-145) mmol/L Potassium 4.0 (3.5-5.1) mmol/L Chloride 103 (98-107) mmol/L Carbon Dioxide 28.9 (21.0-32.0) mmol/L Anion Gap 10.1 BUN 14.0 (7.0-18.0) mg/dL Creatinine 0.90 (0.55-1.02) mg/dL Est GFR ( Amer) >60 (>=60) Est GFR (Non-Af Amer) 59 L (>=60) BUN/Creatinine Ratio 15.6 Glucose 194 H (74-106) mg/dL Lactate 2.7 H* (0.4-2.0) mmol/L Calcium 9.4 (8.5-10.1) mg/dL Total Bilirubin 0.6 (0.2-1.0) mg/dL AST 33 (15-37) U/L ALT 33 (14-59) U/L Alkaline Phosphatase 83 (46-116) U/L Troponin I High Sens 12.5 (4.0-51.3) pg/mL NT-Pro-B Natriuret Pep 1167.0 (<=1800.0) pg/mL Total Protein 7.3 (6.4-8.2) g/dL Albumin 3.3 L (3.4-5.0) g/dL Globulin 4.0 g/dL Albumin/Globulin Ratio 0.[address] scan - head: Radiologist's impression: ITS Impressions Cervical Spine CT 12/04/23 19:33 IMPRESSION: No acute traumatic findings of the cervical spine. Electronically authenticated by: HENNA PHELAN Date: 12/04/2023 21:44 Chest X-Ray 12/04/23 19:33 IMPRESSION: Interstitial prominence, vascular congestion versus atypical infection. Electronically authenticated by: HENNA PHELAN Date: 12/04/2023 21:42 Femur X-Ray 12/04/23 19:33 IMPRESSION: No acute findings. Electronically authenticated by: HENNA PHELAN Date: 12/04/2023 21:46 Foot X-Ray 12/04/23 19:33 IMPRESSION: Degenerative changes of the right foot without acute osseous abnormality. Electronically authenticated by: MICHELE GEORGE Date: 12/04/2023 22:00 Pelvis X-Ray 12/04/23 19:33 IMPRESSION: No acute findings. Electronically authenticated by: HENNA PHELAN Date: 12/04/2023 21:47 Tibia/Fibula X-Ray 12/04/23 19:33 IMPRESSION: No acute findings. Electronically authenticated by: HENNA PHELAN Date: 12/04/2023 21:[address] 12/04/23 19:35 IMPRESSION: No acute intracranial abnormalities. Electronically authenticated by: ANDRE CHIN Date: 12/04/2023 21:00 Discharge Plan Discharge Chief Complaint: Fall Clinical Impression: Inability to walk, Fall Patient Disposition: Admitted as Observation Time of Disposition Decision: 22:49 Condition: Good
[2023-12-04 19:52] VITALS: PULSE 83
[2023-12-04 19:59] LABS: Basophils Absolute Auto 0.1 10^3/uL (0.0-0.1); Basophils Percent Auto 0.5 % (0.2-2.0); Eosinophils Absolute Auto 0.1 10^3/uL (0.0-0.7); Hematocrit 38.7 % (36.0-48.0); Hemoglobin 12.5 g/dL (12.0-16.0); Immature Granulocytes Abs Auto 0.46 10^3/uL (0.00-0.03); Lymphocytes Absolute Auto 2.1 10^3/uL (1.2-3.8); Lymphocytes Percent Auto 18.5 % (20.5-60.0); Mean Corpuscular HGB Conc 32.3 g/dL (29.9-35.2); Mean Corpuscular Hemoglobin 29.5 pg (26.7-34.0); Mean Corpuscular Volume 91.3 fL (81.0-99.0); Mean Platelet Volume 10.4 fL (9.5-13.5); Monocytes Absolute Auto 0.6 10^3/uL (0.3-0.8); Monocytes Percent Auto 5.1 % (1.7-12.0); Neutrophils Absolute Auto 8.1 10^3/uL (1.4-6.5); Neutrophils Percent Auto 70.9 % (43.0-75.0); Platelet Count 196 10^3/uL (150-450); Red Blood Count 4.24 10^6/uL (4.20-5.40); Red Cell Distribution Width 12.7 % (11.0-15.0); White Blood Count 11.4 10^3/uL (4.0-11.0)
--- OUTSIDE RECORDS SUMMARY | 2023-12-04 20:01 | XMS_ITS | CCD ---
Author Organization [facility] Care Team Providers Care Linseed Cake Trimmer Name Role Phone Cristel Edgar Attending Provider Janna MANN Primary Care Physician [phone] Unavailable Primary Care Provider UnavailJANNA Kruse Referring Unavailable PROVIDER, UNKNOWN Admitting Unavailable PROVIDER, UNKNOWN Attending Unavailable JANNA SAUCEDA Referring Unavailable MEGAN TA Admitting Unavailable PROVIDER, UNKNOWN Attending Unavailable JANNA SAUCEDA Referring Unavailable KATCATHY RANKIND Admitting Unavailable REQUEST, IP PHYSICAL THERAPY SERVICE Consulting Unavailable DIANA MARSH Attending Unavailable REQUEST, IP OCCUPATIONAL THERAPY SERVICE Consult ing Unavailable PROVIDER, UNKNOWN Admitting Unavailable PROVIDER, UNKNOWN Attending Unavailable JANNA SAUCEDA Referring Unavailable Oli Wheeler Unavailable JANNA MANN Attending Unavailable JANNA MANN Admitting Unavailable NONE, XXXX Referring Unavailable Axel Perales Admitting Unavaila Axel Zee Attending Unavaila JANNA Forde Attending Unavailable JANNA MANN Attending Unavailable JANNA MANN Attending Unavailable RINA BHATIA Attending Unavailable RINA BHATIA Attending Unavailable STANG, Angelina L Attending Unavailable STANG, Angelina L Referring Unavailable BALJIT, Angelina L Admitting Unavailable Axel Perales Consulting Unavaila Axel Zee Consulting Unavaila Axel Zee Consulting Unavaila ble STANG, Angelina L Attending Unavailable STANG, Angelina L Referring Unavailable STANG, Angelina L Admitting Unavailable NONE, XXXX Referring Unavailable STANG, Angelina L Attending Unavailable STANG, Angelina L Admitting Unavailable Janna Sauceda Attending Unavailable STANG, Angelina L Attending Unavailable STANG, Angelina L Admitting Unavailable NONE, XXXX Referring Unavailable NONE, XXXX Referring Unavailable STANG, Angelina L Attending Unavailable STANG, Angelina L Admitting Unavailable DILLARD, DR SKYLA Faith Primary Care Unavailable RICKEY, FLORINA Admitting Unavailable RICKEY, FLORINA Attending Unavailable RECARLTON, ZAHRAA Consulting Unavailable RICKEY, FLORINA Consulting Unavailable DILLARD, DR SKYLA Faith Primary Care Unavailable PAY, DR ALAN Admitting Unavailable PAY, DR ALAN Attending Unavailable WEST, DR DAVIDE Fletcher Consulting Unavailable PAY, DR ALAN Consulting Unavailable DILLARD, DR SKYLA Faith Primary Care Unavailable HAY, DR FINE Consulting Unavailable HAY, DR FINE Admitting Unavailable HAY, DR FINE Attending Unavailable GELBART, VLADIMIR Consulting Unavailable HAY, DR FINE Consulting Unavailable HAY, DR FINE Admitting Unavailable HAY, DR FINE Attending Unavailable DILLARD, DR SKYLA Faith Primary Care Unavailable OLEXA, OLI Admitting Unavailable OLEXA, OLI Attending Unavailable DILLARD, DR SKYLA Faith Primary Care Unavailable ZIEBER, DR JOSEPH Sanchez Consulting Unavailable OLEXA, OLI Consulting Unavailable Unavailable Primary Care Provider Unavailpauline Mann MD, Janna Bhagat Primary Care Provider [phone] MIGUEL ANGEL GARCÍA Attending Unavailable MIGUEL ANGEL GARCÍA Attending Unavailable Allergies Allergy Classification Reported Allergen(s) Allergy Type Date of Onset Reaction(s) Facility (6 sources) Pravastatin; Translations: [PRAVASTATIN] Drug Allergy 6 Itching, Other [facility] (1 source) Pravastatin Drug Allergy [facility] Repository Medications Current Medications Medication Drug Class(es) Dates Sig (Normalized) Sig (Original) acetaminophen 325 mg chewable tablet (9 sources) Start: 01-30-2022 take 1 mg by mouth every six hours acetaminophen 325 mg oral tablet, chewable mg tab(s), Oral, q6hr, Refills(s) 0 Start Date: 01/30/22 Status: Ordered Start: 01-09-2022 take 2 tablets by mo [facility] every four hours acetaminophen (TYLENOL) 325 mg tablet Take 2 Tablets by mouth every 4 hours. 30 Tablet 0 01/09/2022 Active Start: 01-01-2022 take 650 mg by mouth every four hours 650 mg, Oral, EVERY 4 HOURS, First dose on Fri01/01/22 at 0306, Until Discontinued take 1 tablet by alejandra every four hours as needed Acetaminophen 325 MG 1 tablet as needed Orally every 4 hrs Active [id number] actuat albuterol 0.09 mg/actuat metered dose inhaler (1 source) beta2-Adrenergic Agonist Start: 03-19-2022 albuterol HFA 90 mcg/act inhaler apixaban 2.5 mg oral tablet (9 sources) Factor Xa Inhibitor Start: 04-23-2021 Apixaban (Eliquis) 2.5 MG tablet Indications: start 01/10/22 Take 2.5 mg by mouth. 0 04/23/2021 Active PreserVision (6 sources) Vitamin C Start: 04-03-2020 take 1 tablet by mouth once daily PreserVision Oral, Daily, 1 tablet Start Date: 04/03/20 Status: Ordered atorvastatin 40 mg oral tablet (11 sources) HMG-CoA Reductase Inhibitor Start: 04-23-2021 take 1 tablet by mouth at bedtime atorvastatin 40 mg Tab 40 mg = 1 tab(s), Oral, Bedtime, # 90 tab(s), Refills(s) 1, [facility], 154, cm, 10/09/21 14:37:00 EST, Height/Length Dosing, 60, kg, 10/09/21 14:37:00 EST, Weight Dosing Start Date: 10/22/21 Status: Ordered benzonatate 100 mg oral capsule (1 source) Non-narcotic Antitussive Start: 06-05-2023 benzonatate (Tessalon) 100 MG capsule bisacodyl 10 mg rectal suppository (9 sources) Stimulant Laxative Start: 01-07-2022 take 10 mg rectal route once daily as needed for constipation bisacodyl 10 mg Supp 10 mg = 1 supp, Rectal, Daily, PRN for constipation, # 10 supp, Refills(s) 0 Start Date: 01/30/22 Status: Ordered calcium carbonate 1500 mg / cholecalciferol 0.01 mg oral tablet (5 sources) Vitamin D Start: 03-08-2019 take 1 tablet by mouth once daily calcium-vitamin D 600 mg-400 intl units oral tablet 1 tab(s), Oral, Daily Start Date: 03/08/19 Status: Ordered Start: 03-08-2019 take 1 tablet by alejandra th once daily calcium-vitamin D 600 mg-400 intl units oral tablet 1 tab(s), Oral, Daily Start Date: 03/08/19 Status: Ordered Calcium Citrate (1 source) Calcium Citrate Active calcium-vitamin D 600 mg-400 intl units oral tablet (1 source) Start: 9 take 1 tablet by mouth once daily calcium-vitamin D 600 mg-400 intl units oral tablet 1 tab(s), Oral, Daily Start Date: 03/08/19 Status: Ordered cefdinir 300 mg oral capsule (1 source) Cephalosporin Antibacterial Start: 3 cefdinir (Omnicef) 300 MG capsule cephalexin 500 mg oral capsule (2 sources) Cephalosporin Antibacterial Start: 3 cephalexin (Keflex) 500 MG capsule take 1 capsule by mouth every si x hours Cephalexin 500 MG 1 capsule Orally Four times a day Active clopidogrel 75 mg oral tablet (10 sources) [id number] Platelet Inhibitor Start: 12-06-2021 take 1 tablet by mouth once daily Plavix 75 mg Tab 75 mg = 1 tab(s), Oral, Daily, # 90 tab(s), Refills(s) 3, [facility], 156, cm, 10/23/21 15:51:00 EDT, Height/Length Dosing, 60.5, kg, 10/23/21 15:51:00 EDT, Weight Dosing Start Date: 12/06/21 Status: Ordered Daily Multi (4 sources) Start: 04-19-2013 take 1 tablet by mouth once daily Daily Multi 1 tab(s), Oral, Daily, Refill(s) 0, Prophylaxis Start Date: 04/19/13 Status: Ordered dextrose 10 % iv infusion (1 source) Start: 01-01-2022 dextrose 10 % iv infusion Docusate (9 sources) Start: 01-30-2022 docusate sodiu m Refills(s) 0 Start Date: 01/30/22 Status: Ordered Start: 01-01-[address] [facility] twice daily docusate sodium (COLACE) 100 MG capsule Take 1 Capsule by mouth 2 times daily. 60 Capsule 3 01/09/2022 Active take [address] [facility] every twenty-four hours Docusate Sodium 100 MG 1 capsule as needed Orally Once a day Active 0.3 ml enoxaparin sodium 100 mg/ml prefilled syringe (6 sources) Low Molecular Weight Heparin Start: 01-09-2022 End: 02-20-2022 inject 0.3 mL by subcutaneous injection twice daily enoxaparin (LOVENOX) 30 MG/0.3ML injection Inject 0.3 mL under the skin 2 times daily. 25.2 mL 0 01/09/2022 Active Start: 01-07-2022 enoxaparin (LO VENOX) 30 MG/0.3ML injection 30 mg Start: 01-02-2022 End: 01-05-2022 enoxaparin (LOVENOX) 30 MG/0 .3ML injection 30 mg Enoxaparin Sodiu m 30 MG/0.3ML 0.3 ml Injection every 12 hrs Active esomeprazole 20 mg delayed release oral capsule (5 sources) Proton Pump Inhibitor Start: 01-01-2022 take 1 capsule by mouth once daily 30 minutes before breakfast esomeprazole (NEXIUM) 20 MG capsule Take 1 Capsule by mouth daily (30 minutes before breakfast). 30 Capsule 3 01/10/2022 Active isosorbide dinitrate 30 mg oral tablet (11 sources) Nitrate Vasodilator Start: 06-05-2023 isosorbide dinitrate (Isordil) 30 MG tablet Start: 06-27-2021 take 1 tablet by alejandra th twice daily in the morning isosorbide dinitrate 30 mg oral tablet 30 mg = 1 tab(s), Oral, BID, qAM and qPM, Refills(s) 0 Start Date: 06/27/21 Status: Ordered magnesium oxide 250 mg oral tablet (6 sources) Start: 02-16-2019 take 1 tablet by mouth twice daily magnesium oxide 250 mg oral tablet 250 mg = 1 tab(s), Oral, BID, # 90 tab(s), Refills(s) 3, [facility] Start Date: 02/16/19 Status: Ordered metoprolol tartrate 25 mg oral tablet (12 sources) beta-Adrenergic Mary Start: 02-10-2023 metoprolol tartrate (Lopressor) 25 MG tablet Start: 10-09-2021 take 1 tablet by alejandra th twice daily Metoprolol tartrate 25 mg Tab 25 mg = 1 tab(s), Oral, BID, # 60 tab(s), Refills(s) 3, [facility], 154, cm, 10/09/21 14:37:00 EST, Height/Length Dosing, 60, kg, 10/09/21 14:37:00 EST, Weight Dosing Start Date: 10/09/21 Status: Ordered nitrofurantoin, macrocrystals 25 mg / nitrofurantoin, monohydrate 75 mg oral capsule (1 source) Nitrofuran Antibacterial Start: 09-11-2022 nitrofurantoin, macrocrystal-monohydrate, (Macrobid) 100 MG capsule omeprazole 20 mg delayed release oral capsule (7 sources) Proton Pump Inhibitor Start: 10-22-2021 omeprazole (PRILOSEC) 20 MG capsule omeprazole 20 mg Cap-DR (1 source) Start: 10-22-2021 take 1 capsule by mouth once daily omeprazole 20 mg Cap-DR 20 mg = 1 cap(s), Oral, Daily, # 90 cap(s), Refills(s) 1, [facility], 154, cm, 10/09/21 14:37:00 EST, Height/Length Dosing, 60, kg, 10/09/21 14:37:00 EST, Weight Dosing Start Date: 10/22/21 Status: Ordered ondansetron 4 mg oral tablet (10 sources) Serotonin-3 Receptor Antagonist Start: 01-30-2022 take 1 mg by mouth every eight hours ondansetron 4 mg Tab mg tab(s), Oral, q8hr, Refills(s) 0 Start Date: 01/30/22 Status: Ordered Start: 01-09-2022 inject 2 mL intraven ously every four hours as needed ondansetron (ZOFRAN) 4 MG/2ML injection 2 mL by Intravenous Push route every 4 hours as needed. 15 mL 0 01/09/2022 Active Start: 01-01-2022 take 4 mg intravenou sly every four hours as needed 4 mg, Intravenous Push, EVERY 4 HOURS PRN, Starting on Fri01/01/22 at 0305, Until Discontinued, Nausea, Vomiting Start: 01-01-2022 End: 01-01-2022 ondansetron (ZOFRAN) 4 MG/2M L injection take 1 tablet by alejandra th every twenty-four hours Ondansetron 4 MG 1 tablet on the tongue and allow to dissolve Orally Once a day Active 24 hr oxybutynin chloride 5 mg extended release oral tablet (1 source) Cholinergic Muscarinic Antagonist Start: 02-12-2023 oxybutynin XL (Ditropan-XL) 5 MG 24 hr tablet pantoprazole 20 mg delayed release oral tablet (1 source) Proton Pump Inhibitor Start: 03-07-2023 pantopra zole (ProtoNix) 20 MG EC tablet polyethylene glycol 3350 [id number] mg powder for oral solution (4 sources) Osmotic Laxative Start: 01-10-2022 End: 02-09-2022 polyethylene glycol (MIRALAX) packet Dissolve 1 Packet in 8 ounces of liquid and drink daily. 30 Each 0 01/10/2022 02/09/2022 Active Start: 01-07-2022 polyethylene g lycol (MIRALAX) 17 g packet MiraLax 17 GM 1 packet mixed with 8 ounces of fluid Orally Once a day Active purified protein derivative of tuberculin 50 unt/ml injectable solution (1 source) Tuberculosis Skin Test, Skin Test Antigen Aplisol 5 UNIT/0.1ML as directed Intradermal Active sennosides, [facility] 8.6 mg oral tablet (5 sources) Start: 2 take 1 tablet by mouth at bedtime senna (SENOKOT) 8.6 MG tablet Take 1 Tablet by mouth at bedtime. 30 Tablet 0 01/09/2022 Active take 2 tablets by mo [facility] every twenty-four hours Senna 8.6 MG 2 tablets at bedtime as needed Orally Once a day Active sertraline 25 mg oral tablet (12 sources) Serotonin Reuptake Inhibitor Start: 02-17-2023 sertraline (Zoloft) 25 MG tablet Start: 05-07-2021 take 1 tablet by [facility] once daily in the evening Zoloft 25 mg Tab 25 mg = 1 tab(s), Oral, Daily, in the evening, # 90 tab(s), Refills(s) 3, [facility], 154, cm, 03/21/21 11:39:00 EDT, Height/Length Dosing, 59, kg, 03/21/21 11:39:00 EDT, Weight Dosing Start Date: 05/07/21 Status: Ordered Completed/Discontinued Medications Medication Drug Class(es) Dates Sig (Normalized) Sig (Original) calcium chloride 0.0014 meq/ml / potassium chloride 0.004 meq/ml / sodium chloride 0.103 meq/ml / sodium lactate 0.028 meq/ml injectable solution (3 sources) Start: 01-05-2022 End: 01-07-2022 lactated ringers iv infusion Start: 01-01-2022 End: 01-05-2022 Intravenous, at 50 mL/hr, CO NTINUOUS, Starting on Fri01/01/22 at 0305, Until 01/05/22 at 0911 ceFAZolin 2000 mg injection (1 source) Cephalosporin Antibacterial Start: 01-02-2022 End: 01-03-2022 ceFAZolin (ANCEF) 2,000 mg in dextrose 50 mL ivpb enoxaparin (LMWH) anti-fxa lab draw (1 source) Start: 01-08-2022 End: 01-08-2022 enoxaparin (LMWH) anti-fxa lab draw furosemide 40 mg oral tablet (10 sources) Loop Diuretic Start: 01-01-2022 take 20 mg by mouth once daily 20 mg, Oral, DAILY, First dose on Fri01/01/22 at 0900, Until Discontinued Start: 10-22-2021 take 1 tablet by alejandra once daily furosemide (LASIX) 20 MG tablet Take 20 mg by mouth daily. 0 10/22/2021 Active HYDROmorphone (DILAUDID) 0.2 MG/ML injection 0.2 mg (3 sources) Start: 01-02-2022 End: 01-02-2022 HYDROmorphone (DILAUDID) 0.2 MG/ML injection 0.2 mg Start: 01-01-2022 End: 01-01-2022 HYDROmorphone (DILAUDID) 0.2 MG/ML injection 0.2 mg Start: 01-01-2022 End: 01-03-2022 take 0.2 mg intravenously every three hours as needed for pain 0.2 mg, Intravenous Push, EVERY 3 HOURS PRN, Starting on Fri01/01/22 at 0304, Until Kimmie 01/03/22 at 0303, Breakthrough Pain insulin lispro 100 unt/ml injectable solution (1 source) Insulin Analog Start: 01-01-2022 inject 1-7 [IU] by subcutaneous injection three times daily before mealtime 1-7 Units, Subcutaneous, 3 TIMES DAILY BEFORE MEALS, First dose on Fri01/01/22 at 0800, Until Discontinued 100 ml magnesium sulfate 40 mg/ml injection (1 source) Start: 01-03-2022 End: 01-03-2022 magnesium sulfate 4 GM/100ML in 100 mL ivpb oxyCODONE hydrochloride 5 mg oral tablet (2 sources) Opioid Agonist Start: 01-09-2022 End: 01-09-2022 oxyCODONE immediate release tablet Start: 01-01-2022 End: 01-05-2022 5 mg, Oral, EVERY 4 HOURS AL N, Starting on Fri01/01/22 at 0304, Until 01/05/22 at 0910, Moderate Pain (pain score 4,5,6), Severe Pain (pain score 7,8,9,10) microencapsulated potassium chloride 20 meq extended release oral tablet (1 source) Start: 01-06-2022 End: 01-06-2022 potassium chloride SA (K-DUR) controlled release tablet Problems Active Problems Problem Classification Problem Date Documented Da te Episodic/Chronic Cardiac dysrhythmias (14 sources) Nonsustained ventricular tachycardia ; Translations: [Paroxysmal atrial fibrillation] Onset: 2 04-03-2020 Chronic Cardiac dysrhythmias (6 sources) Bradycardia 04-13-2019 Episodic Coma; stupor; and brain damage (6 sources) Daytime somnolence 04-03-2020 Episodic Conduction disorders (6 sources) Ventricular bigeminy 04-03-2020 Chronic Congestive heart failure; nonhypertensive (7 sources) Chronic diastolic heart failure; Translations: [Heart failure, unspecified] Onset: 2 04-03-2020 Chronic Coronary atherosclerosis and other heart disease (7 sources) Coronary arteriosclerosis; Translations: [Atherosclerotic heart disease of koi coronary artery without angina pectoris] Onset: 2 04-03-2020 Chronic Delirium, dementia, and amnestic and other cognitive disorders (1 source) Unspecified dementia without behavioral disturbance; Translations: [UNSP KATT UNS SEV W/O DSTRB ANXTY] Onset: 2 Chronic Diabetes mellitus without complication (7 sources) Type 2 diabetes mellitus; Translations: [Type 2 diabetes mellitus without complications] Onset: 2 04-03-2020 Chronic Disorders of lipid metabolism (13 sources) Hypercholesterolemia; Translations: [Hyperlipidemia] Onset: 2 06-13-2013 Chronic E Codes: Fall (1 source) Fall; Translations: [Unspecified fall, initial encounter] Episodic E Codes: Fall (6 sources) Fall in home 10-04-2020 Esophageal disorders (1 source) Gastro-esophageal reflux disease without esophagitis; Translations: [GERD WITHOUT ESOPHAGITIS] Onset: 2 Chronic Essential hypertension (6 sources) Hypertensive disorder 04-03-2020 Chronic Fluid and electrolyte disorders (7 sources) Hypokalemia; Translations: [Dehydration] Onset: 2 04-03-2020 Episodic Gastritis and duodenitis (6 sources) Gastritis 04-13-2019 Episodic Genitourinary symptoms and ill-defined conditions (5 sources) Retention of urine; Translations: [Retention of urine, unspecified] Onset: 2 Episodic Heart valve disorders (6 sources) Mitral valve regurgitation 02-11-2019 Chronic Hypertension with complications and secondary hypertension (1 source) Hypertensive heart disease with heart failure; Translations: [HTN HEART DISEASE W/HEART FAIL] Onset: 2 Chronic Malaise and fatigue (6 sources) Fatigue 05-26-2019 Episodic Mood disorders (7 sources) Recurrent major depressive episodes, mild ; Translations: [Major depressive disorder, single episode, unspecified] Onset: 2 04-03-2020 Chronic Other aftercare (1 source) Other director trading (current) drug therapy; Translations: [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] Onset: 2 Episodic Other bone disease and musculoskeletal deformities (6 sources) Osteopenia 02-11-2019 Episodic Other circulatory disease (6 sources) History of cerebrovascular accident 04-03-2020 Episodic Other circulatory disease (6 sources) History of transient ischemic attack 02-09-2021 Episodic Other circulatory disease (4 sources) Hypotension, unspecified; Translations: [HYPOTENSION UNSPECIFIED] Onset: 2 Episodic Other eye disorders (2 sources) Dry eyes; Translations: [Dry eye syndrome of bilateral lacrimal glands] Onset: 3 09-16-2023 Episodic Other gastrointestinal disorders (6 sources) Chronic constipation 02-11-2019 Episodic Other screening for suspected conditions (not mental disorders or infectious disease) (1 source) Electrocardiogram abnormal; Translations: [Abnormal electrocardiogram [ECG] [EKG]] Episodic Beata-; endo-; and myocarditis; cardiomyopathy (except that caused by tuberculosis or sexually transmitted disease) (1 source) Hypertrophic cardiomyopathy; Translations: [Other hypertrophic cardiomyopathy] Chronic Pulmonary heart disease (7 sources) Pulmonary hypertension; Translations: [Pulmonary hypertension, unspecified] Onset: 2 06-11-2018 Chronic Residual codes; unclassified (6 sources) Insomnia 04-13-2019 Episodic Retinal detachments; defects; vascular occlusion; and retinopathy (13 sources) Exudative age-related macular degeneration; Translations: [Unspecified macular degeneration] Onset: 2 10-23-2021 Chronic Retinal detachments; defects; vascular occlusion; and retinopathy (2 sources) Retinal detachment - subretinal fluid; Translations: [Serous retinal detachment, left eye] Onset: 3 09-16-2023 Episodic Syncope (1 source) Syncope and collapse; Translations: [SYNCOPE AND COLLAPSE] Onset: 2 Episodic Unclassified (1 source) CONTACT W/AND (SUSP) EXPOS COVID-19; Translations: [CONTACT W/AND (SUSP) EXPOS COVID-19] Onset: 2 Past or Other Problems Problem Classification Problem Date Documented Da te Episodic/Chronic Conditions associated with dizziness or vertigo (3 sources) Dizziness and giddiness; Translations: [DIZZINESS AND GIDDINESS] Onset: 02-04-2022 Episodic Fracture of lower limb (6 sources) Closed fracture of shaft of right femur; Translations: [Unspecified fracture of shaft of right femur, initial encounter for closed fracture] Onset: 01-01-2022 Episodic Fracture of neck of femur (hip) (1 source) Fracture of unspecified part of neck of right femur, initial encounter for closed fracture Onset: 02-05-2022 Resolved: 02-05-2022 Episodic Nausea and vomiting (3 sources) Nausea; Translations: [NAUSEA] Onset: 03-16-2022 Episodic Other aftercare (1 source) svp programmatic tv (current) use of anticoagulants; Translations: [SHELTER CURRNT USE ANTICOAGULANTS] Onset: 03-19-2022 Episodic Other gastrointestinal disorders (1 source) Constipation, unspecified; Translations: [CONSTIPATION UNSPECIFIED] Onset: 02-06-2022 Episodic Other injuries and conditions due to external causes (1 source) History of falling; Translations: [HISTORY OF FALLING] Onset: 02-06-2022 Episodic Other non-traumatic joint disorders (1 source) Pain in right hip Onset: 02-05-2022 Resolved: 02-05-2022 Episodic Residual codes; unclassified (5 sources) Other specified postprocedural states; Translations: [OTH SPECIFIED POSTPROCEDURAL STATES] Onset: 02-05-2022 Resolved: 02-05-2022 Episodic Urinary tract infections (1 source) Urinary tract infection, site not specified; Translations: [UTI SITE NOT SPECIFIED] Onset: 03-19-2022 Episodic Results Test Name Value Interpretation Reference Range Facil ity Optical coherence tomography study reporton 09-16-2023 [facility] Radiology Study observation (narrative) [facility] CBC AUTO DIFFon 08-04-2022 BASO # 0.0 103/ul Normal 0.0-0.1 [facility] Comment on above: Performed By: #### U MICRO, ERUR #### [facility] [address] [place] [address] Dr. Krystal Glass Basophils/100 WBC (Bld) 0.5 % Normal 0.2-2.0 [facility] Comment on above: Performed By: #### U MICRO, ERUR #### [facility] [address] [place] [address] Dr. Krystal Glass EO # 0.1 103/ul Normal 0.0-0.7 [facility] Comment on above: Performed By: #### U MICRO, ERUR #### [facility] [address] [place] [address] Dr. Krystal Glass Eosinophils/100 WBC (Bld) 1.3 % Normal 0.9-7.0 [facility] Comment on above: Performed By: #### U MICRO, ERUR #### [facility] [address] [address] [address] Krystal Glass Erythrocyte distribution width (RBC) [Ratio] 12.5 % Normal 11.0-15.0 [facility] Comment on above: Performed By: #### U MICRO, ERUR #### [facility] [address] [place] [address] Dr. Krystal Glass Hematocrit (Bld) [Volume fraction] 35.9 % Critically low 36.0-48.0 [facility] Comment on above: Performed By: #### U MICRO, ERUR #### [facility] [address] [place] [address] Dr. Krystal Glass Hemoglobin (Bld) [Mass/Vol] 12.3 g/dL Normal 12.0-16.0 [facility] Comment on above: Performed By: #### U MICRO, ERUR #### [facility] [address] [place] [address] Dr. Krystal Glass IG # 0.01 10e3/ul Normal 0.00-0.03 [facility] Comment on above: Performed By: #### U MICRO, ERUR #### [facility] [address] [place] [address] Dr. Krystal Glass IG % 0.1 % Normal 0.0-0.5 [facility] Comment on above: Performed By: #### U MICRO, ERUR #### [facility] [address] [place] [address] Dr. Krystal Glass LYMPH # 1.7 103/ul Normal 1.2-3.8 [facility] Comment on above: Performed By: #### U MICRO, ERUR #### [facility] [address] [place] [address] Dr. Krystal Glass Lymphocytes/100 WBC (Bld) 20.4 % Critically low 20.5-60.0 [facility] Comment on above: Performed By: #### U MICRO, ERUR #### [facility] [address] [place] [address] Dr. Krystal Glass MANUAL DIFF REQ NO Normal [facility] Comment on above: Performed By: #### U MICRO, ERUR #### [facility] [address] [place] [address] Dr. Krystal Glass MCH (RBC) [Entitic mass] 30.0 pg Normal 26.7-34.0 [facility] Comment on above: Performed By: #### U MICRO, ERUR #### [facility] [address] [place] [address] Dr. Krystal Glass MCHC (RBC) [Mass/Vol] 34.3 g/dL Normal 29.9-35.2 [facility] [facility] Comment on above: Performed By: #### U MICRO, ERUR #### [facility] [address] [place] [address] Dr. Krystal Glass MCV (RBC) [Entitic vol] 87.6 fL Normal 81.0-99.0 [facility] Comment on above: Performed By: #### U MICRO, ERUR #### [facility] [address] [place] [address] Dr. Krystal Glass MONO # 0.7 103/ul Normal 0.3-0.8 [facility] Comment on above: Performed By: #### U MICRO, ERUR #### [facility] [address] [place] [address] Dr. Krystal Glass Monocytes/100 WBC (Bld) 8.0 % Normal 1.7-12.0 [facility] Comment on above: Performed By: #### U MICRO, ERUR #### [facility] [address] [place] [address] Dr. Krystal Glass NEUT # 5.8 103/ul Normal 1.4-6.5 [facility] Comment on above: Performed By: #### U MICRO, ERUR #### [facility] [address] [place] [address] Dr. Krystal Glass Neutrophils/100 WBC (Bld) 69.7 % Normal 43.0-75.0 [facility] Comment on above: Performed By: #### U MICRO, ERUR #### [facility] [address] [place] [address] Dr. Krystal Glass Platelet mean volume (Bld) [Entitic vol] 10.4 fL Normal 9.5-13.5 [facility] Comment on above: Performed By: #### U MICRO, ERUR #### [facility] [address] [place] [address] Dr. Krystal Glass PLT 200 103/ul Normal 150-450 [facility] Comment on above: Performed By: #### U MICRO, ERUR #### [facility] [address] [place], [place] [address] Dr. Krystal Glass RBC 4.10 106/ul Critically low 4.20-5.40 [facility] Comment on above: Performed By: #### U MICRO, ERUR #### [facility] [address] [place], [place] [address] Dr. Krystal Glass WBC 8.3 103/ul Normal 4.0-11.0 [facility] Comment on above: Performed By: #### U MICRO, ERUR #### [facility] [address] [place], [place] [address] HEAD WO CONon 08-04-2022 CT HEAD WO CON EXAMINATION: CT HEAD WO CON HISTORY: Syncope. Acute unresponsiveness. Patient allergic and oriented upon arrival to the emergency department. Blood sugar was 232 upon arrival. COMPARISON: Comparison made to head CT dated 06/07/2022. TECHNIQUE: CT examination of the head without IV contrast. Dose reduction techniques were achieved by using automated exposure control and/or adjustment of mA and/or kV according to patient size and/or use of iterative reconstruction technique. FINDINGS: There is no focal scalp soft tissue swelling or acute calvarial fracture. The visualized globes and orbits are grossly normal for age. Visualized paranasal sinuses are clear. Bilateral mastoid air cells are clear. The ventricles and sulci are prominent bilaterally. There is periventricular and deep subcortical white matter low-attenuation, most consistent with small vessel ischemic disease. 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 There is no intraparenchymal hemorrhage, extraaxial fluid collection, mass lesion, or acute large territory ischemia by noncontrast CT. There is intracranial atherosclerosis. IMPRESSION: 1. No acute intracranial hemorrhage or acute large territory ischemia by noncontrast CT. 2. 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 If the patient has a focal neurologic deficit or there is clinical suspicion for acute cerebrovascular accident, brain MRI would be recommended for further evaluation. Electronically authenticated by: VLADIMIR URBANO Date: 2022-08-04 08:44 Normal [facility] CULTURE URINEon 08-04-2022 CULTURE URINE Culture Observations: Susceptibilities not typically performed on Corynebacterium spp. Culture Observations: Probable skin contaminant. PLEASE RESUBMIT CLEAN CATCH MID-STREAM URINE IF CLINICALLY INDICATED. Isolate 1 Corynebacterium aurimucosum >100,000 cfu/mL of Normal [facility] Comment on above: Performed By: #### C BC #### [facility] [address] [place] [address] Dr. Krystal Glass ER URINE PROFILEon 3 Bilirubin Ql (U) Negative Normal NEGATIVE [facility] Comment on above: Performed By: #### July HENLEY UMICRO #### [facility] [address] [place] [address] Dr. Krystal Glass Clarity (U) CLEAR Normal CLEAR [facility] Comment on above: Performed By: #### July HENLEY UMICRO #### [facility] [address] [place] [address] Dr. Krystal Glass Color (U) LT. YELLOW Normal YELLOW [facility] Comment on above: Performed By: #### July HENLEY UMICRO #### [facility] [address] [place] [address] Dr. Krystal ROSARIO A micrscopic examination will be performed if indicated. Normal [facility] Comment on above: Performed By: #### July HENLEY UMICRO #### [facility] [address] [place] [address] Dr. Krystal Glass Glucose Ql (U) Negative Normal NEGATIVE [facility] Comment on above: Performed By: #### July HENLEY UMICRO #### [facility] [address] [place] [address] Dr. Krystal Glass Hemoglobin Ql (U) TRACE-LYSED Abnormal NEGATIVE [facility] Comment on above: Performed By: #### July HENLEY UMICRO #### [facility] [address] [place] [address] Dr. Krystal Glass Ketones Ql (U) Negative Normal NEGATIVE [facility] Comment on above: Performed By: #### July HENLEY UMICRO #### [facility] [address] [place] [address] Dr. Krystal Glass LEUKOCYTES MODERATE Abnormal NEGATIVE [facility] Comment on above: Performed By: #### E RUR, UMICRO #### [facility] [address] [place] [address] Dr. Krystal Glass Nitrite Ql (U) Negative Normal NEGATIVE [facility] Comment on above: Performed By: #### E RUR, UMICRO #### [facility] [address] [place] [address] Dr. Krystal Glass pH (U) 7.0 [pH] Normal 5-9 [facility] Comment on above: Performed By: #### E RUR, UMICRO #### [facility] [address] [place] [address] Dr. Krystal Glass SPEC GRAVITY 1.010 Normal 1.005-<=1.025 [facility] Comment on above: Performed By: #### E KALE, UMICRO #### [facility] [address] [place] [address] Dr. Krystal Glass UA PROTEIN Negative Normal NEGATIVE/ TRACE [facility] Comment on above: Performed By: #### E KALE, UMICRO #### [facility] [address] [place] [address] Dr. Krystal Glass UR MICRO IND INDICATED Normal [facility] Comment on above: Performed By: #### E RUR, UMICRO #### [facility] [address] [place] [address] Dr. Krystal Glass Urobilinogen Qn (U) 0.2 {Daily'U}/dL Normal 0.2 - 1. 0 [facility] Comment on above: Performed By: #### E RUR, UMICRO #### [facility] [address] [place] [address] Dr. Krystal Glass PROF 14(COMP METB)on 023 Albumin [Mass/Vol] 3.2 g/dL Critically low 3.4-5.0 [facility] Comment on above: Performed By: #### U MICRO, ERUR #### [facility] [address] [place] [address] Dr. Krystal Glass Albumin/Globulin [Mass ratio] 0.8 {ratio} Normal [facility] Comment on above: Performed By: #### U MICRO, ERUR #### [facility] [address] [place] [address] [address] Krystal Glass ALP [Catalytic activity/Vol] 73 U/L Normal 46-116 [facility] Comment on above: Performed By: #### U MICRO, ERUR #### [facility] [address] [place] [address] [address] Krystal Glass ALT [Catalytic activity/Vol] 17 U/L Normal 14-59 [facility] Comment on above: Performed By: #### U MICRO, ERUR #### [facility] [address] [place] [address] [address] Krystal Glass Anion gap [Moles/Vol] 10.0 mmol/L Normal [facility] Comment on above: Performed By: #### U MICRO, ERUR #### [facility] [address] [place] [address] Dr. Krystal Glass AST [Catalytic activity/Vol] 18 U/L Normal 15-37 [facility] Comment on above: Performed By: #### U MICRO, ERUR #### [facility] [address] [place] [address] [address] Krystal Glass Bilirubin [Mass/Vol] 0.6 mg/dL Normal 0.2-1.0 [facility] Comment on above: Performed By: #### U MICRO, ERUR #### [facility] [address] [place] [address] [address] Krystal Glass Calcium [Mass/Vol] 9.3 mg/dL Normal 8.5-10.1 [facility] Comment on above: Performed By: #### U MICRO, ERUR #### [facility] [address] [place] [address] [address] Krystal Glass Chloride [Moles/Vol] 101 mmol/L Normal 98-107 [facility] Comment on above: Performed By: #### U MICRO, ERUR #### [facility] [address] [place] [address] [address] Krystal Glass CO2 [Moles/Vol] 30.6 mmol/L Normal 21.0-32.0 [place] Comment on above: Performed By: #### U MICRO, ERUR #### [facility] [address] [place] [address] Dr. Krystal Glass Creatinine [Mass/Vol] 0.83 mg/dL Normal 0.55-1.02 [facility] Comment on above: Performed By: #### U MICRO, ERUR #### [facility] [address] [place] [address] [address] Krystal Glass EGFR-AF MEXICAN >60 Normal >=60 [place] Comment on above: Performed By: #### U MICRO, ERUR #### [facility] [address] [place] [address] Dr. Krystal Glass EGFR-NON AF MEXICAN >60 Normal >=60 [facility] Comment on above: Performed By: #### U MICRO, ERUR #### [facility] [address] [place] [address] [address] Krystal Glass Globulin (S) [Mass/Vol] 3.8 g/dL Normal [facility] Comment on above: Performed By: #### U MICRO, ERUR #### [facility] [address] [place] [address] [address] Krystal Glass Glucose [Mass/Vol] 192 mg/dL Critically high 74-106 [facility] Comment on above: Performed By: #### U MICRO, ERUR #### [facility] [address] [place] [address] [address] Krystal Glass Potassium [Moles/Vol] 3.6 mmol/L Normal 3.5-5.1 [facility] Comment on above: Performed By: #### U MICRO, ERUR #### [facility] [address] [place] [address] [address] Krystal Glass Protein [Mass/Vol] 7.0 g/dL Normal 6.4-8.2 [facility] Comment on above: Performed By: #### U MICRO, ERUR #### [facility] [address] [place] [address] [address] Krystal Glass Sodium [Moles/Vol] 138 mmol/L Normal 136-145 [facility] Comment on above: Performed By: #### U MICRO, ERUR #### [facility] [address] [place] [address] Dr. Krystal Glass Urea nitrogen [Mass/Vol] 14.0 mg/dL Normal 7.0-18.0 [facility] Comment on above: Performed By: #### U MICRO, ERUR #### [facility] [address] [place] [address] Dr. Krystal Glass Urea nitrogen/Creatinine [Mass ratio] 16.9 mg/mg Normal [facility] Comment on above: Performed By: #### U MICRO, ERUR #### [facility] [address] [place] [address] Dr. Krystal Glass URINE MICROSCOPIC ONLYon BACTERIA TRACE Abnormal NONE SEEN [facility] Comment on above: Performed By: #### E RUR, UMICRO #### [facility] [address] [place] [address] Dr. Krystal Glass Bacteria identified Cx Nom (U) INDICATED Normal [facility] Comment on above: Performed By: #### E RUR, UMICRO #### [facility] [address] [place] [address] Dr. Krystal Glass CAST NONE SEEN Normal NONE SEEN [facility] Comment on above: Performed By: #### E RUR, UMICRO #### [facility] [address] [place] [address] Dr. Krsytal Glass Crystals LM Nom (Urine sed) NONE SEEN Normal NONE SEEN [facility] Comment on above: Performed By: #### E RUR, UMICRO #### [facility] [address] [place] [address] Dr. Krystal Glass Epithelial cells LM Ql (Urine sed) NONE SEEN Normal NONE SEEN /RARE [facility] Comment on above: Performed By: #### E RUR, UMICRO #### [facility] [address] [place] [address] Dr. Krystal Glass MUCOUS NONE SEEN Normal NONE SEEN [facility] Comment on above: Performed By: #### E RUR, UMICRO #### [facility] [address] [place] [address] Dr. Krystal Glass RBC 0-2 Normal 0-2 [facility] Comment on above: Performed By: #### E RICHARD HENLEY #### [facility] [address] [place] [address] Dr. Krystal Glass WBC 2-5 Abnormal NONE SEEN [facility] Comment on above: Performed By: #### RICHARD VIERA #### [facility] [address] [place] [address] Dr. Krystal Glass CBC AUTO DIFFon 06-07-2022 BASO # 0.0 103/ul Normal 0.0-0.1 [facility] Comment on above: Performed By: #### C BC #### [facility] [address] [place] [address] Dr. Krystal Glass Basophils/100 WBC (Bld) 0.4 % Normal 0.2-2.0 [facility] Comment on above: Performed By: #### C BC #### [facility] [address] [place] [address] Dr. Krystal Glass EO # 0.1 103/ul Normal 0.0-0.7 [facility] Comment on above: Performed By: #### C BC #### [facility] [address] [place] [address] Dr. Krystal Glass Eosinophils/100 WBC (Bld) 0.8 % Critically low 0.9-7.0 [facility] Comment on above: Performed By: #### C BC #### [facility] [address] [place] [address] Dr. Krystal Glass Erythrocyte distribution width (RBC) [Ratio] 13.0 % Normal 11.0-15.0 [facility] Comment on above: Performed By: #### C BC #### [facility] [address] [place] [address] Dr. Krystal Glass Hematocrit (Bld) [Volume fraction] 35.4 % Critically low 36.0-48.0 [facility] Comment on above: Performed By: #### C BC #### [facility] [address] [place] [address] Dr. Krystal Glass Hemoglobin (Bld) [Mass/Vol] 11.7 g/dL Critically low 12.0-16.0 [facility] Comment on above: Performed By: #### C BC #### [facility] [address] [place] [address] Dr. Krystal Glass IG # 0.02 10e3/ul Normal 0.00-0.03 [facility] Comment on above: Performed By: #### C BC #### [facility] [address] [place] [address] Dr. Krystal Glass IG % 0.2 % Normal 0.0-0.5 [facility] Comment on above: Performed By: #### C BC #### [facility] [address] [place] [address] Dr. Krystal Glass LYMPH # 1.2 103/ul Normal 1.2-3.8 [facility] Comment on above: Performed By: #### C BC #### [facility] [address] [place] [address] Dr. Krystal Glass Lymphocytes/100 WBC (Bld) 13.5 % Critically low 20.5-60.0 [facility] Comment on above: Performed By: #### C BC #### [facility] [address] [place] [address] Dr. Krystal Glass MANUAL DIFF REQ NO Normal [facility] Comment on above: Performed By: #### C BC #### [facility] [address] [place] [address] Dr. Krystal Glass MCH (RBC) [Entitic mass] 29.5 pg Normal 26.7-34.0 [facility] Comment on above: Performed By: #### C BC #### [facility] [address] [place] [address] Dr. Krystal Glass MCHC (RBC) [Mass/Vol] 33.1 g/dL Normal 29.9-35.2 [facility] Comment on above: Performed By: #### C BC #### [facility] [address] [place] [address] [address] Krystal Glass MCV (RBC) [Entitic vol] 89.2 fL Normal 81.0-99.0 [facility] Comment on above: Performed By: #### C BC #### [facility] [address] [place] [address] [address] Krystal Glass MONO # 0.6 103/ul Normal 0.3-0.8 [facility] Comment on above: Performed By: #### C BC #### [facility] [address] [place] [address] [address] Krystal Glass Monocytes/100 WBC (Bld) 6.9 % Normal 1.7-12.0 [facility] Comment on above: Performed By: #### C BC #### [facility] [address] [place] [address] Dr. Krystal Glass NEUT # 7.0 103/ul Critically high 1.4-6.5 [facility] Comment on above: Performed By: #### C BC #### [facility] [address] [place] [address] Dr. Krystal Glass Neutrophils/100 WBC (Bld) 78.2 % Critically high 43.0-75.0 [facility] Comment on above: Performed By: #### C BC #### [facility] [address] [place] [address] Dr. Krystal Glass Platelet mean volume (Bld) [Entitic vol] 10.1 fL Normal 9.5-13.5 [facility] Comment on above: Performed By: #### C BC #### [facility] [address] [place] [address] Dr. Krystal Glass PLT 249 103/ul Normal 150-450 [facility] Comment on above: Performed By: #### C BC #### [facility] [address] [place] [address] Dr. Krystal Glass RBC 3.97 106/ul Critically low 4.20-5.40 [facility] Comment on above: Performed By: #### C BC #### [facility] [address] [place] [address] Dr. Krystal Glass WBC 9.0 103/ul Normal 4.0-11.0 [facility] Comment on above: Performed By: #### C BC #### [facility] [address] [place] [address] HEAD WO CONon 06-07-2022 CT HEAD WO CON EXAMINATION: CT HEAD WO CON, 06/07/2022 10:32 AM EDT HISTORY: WEAKNESS COMPARISON: None. TECHNIQUE: CT scan of the head was performed without IV contrast. CT dose reduction technique was used, including Automated Exposure Control. FINDINGS: BRAIN: Moderate diffuse supratentorial atrophy. Moderate to large amount of white matter hypoattenuation. Bilateral basal ganglia hyperdensities, chronic calcifications are favored. No acute parenchymal hemorrhage mass or infarct. CSF SPACES: No hydrocephalus, subarachnoid hemorrhage, or mass. Appropriate for age. Falx calcifications. SKULL: No fracture, mass, or other significant visible lesion. SINUSES: No significant mucosal thickening or fluid on the limited views. ORBITS: No appreciable abnormality on the limited views. OTHER: Negative IMPRESSION: Moderate atrophy and white matter disease. Chronic small vessel ischemic changes are favored Electronically authenticated by: DAVIDE SALAS Date: 2022-06-07 11:56 Normal [facility] CULTURE URINEon 06-07-2022 CULTURE URINE Culture Observations: NO GROWTH. Normal [facility] Comment on above: Performed By: #### C BC #### [facility] [address] [place] [address] Dr. Krystal Glass ER URINE PROFILEon 2 Bilirubin Ql (U) Negative Normal NEGATIVE [facility] Comment on above: Performed By: #### C BC #### [facility] [address] [place] [address] Dr. Krystal Glass Clarity (U) CLEAR Normal CLEAR [facility] Comment on above: Performed By: #### C BC #### [facility] [address] [place] [address] Dr. Krystal Glass Color (U) LT. YELLOW Normal YELLOW [facility] Comment on above: Performed By: #### C BC #### [facility] [address] [place] [address] Dr. Krystal ROSARIO A micrscopic examination will be performed if indicated. Normal [facility] Comment on above: Performed By: #### C BC #### [facility] [address] [place] [address] Dr. Krystal Glass Glucose Ql (U) Negative Normal NEGATIVE [facility] Comment on above: Performed By: #### C BC #### [facility] [address] [place] [address] Dr. Krystal Glass Hemoglobin Ql (U) Negative Normal NEGATIVE [facility] Comment on above: Performed By: #### C BC #### [facility] [address] [place] [address] Dr. Krystal Glass Ketones Ql (U) Negative Normal NEGATIVE [facility] Comment on above: Performed By: #### C BC #### [facility] [address] [place] [address] Dr. Krystal Glass LEUKOCYTES Negative Normal NEGATIVE [facility] Comment on above: Performed By: #### C BC #### [facility] [address] [place] [address] Dr. Krystal Glass Nitrite Ql (U) Negative Normal NEGATIVE [facility] Comment on above: Performed By: #### C BC #### [facility] [address] [place] [address] Dr. Krystal Glass pH (U) 7.0 [pH] Normal 5-9 [facility] Comment on above: Performed By: #### C BC #### [facility] [address] [place] [address] Dr. Krystal Glass SPEC GRAVITY 1.010 Normal 1.005-<=1.025 [facility] Comment on above: Performed By: #### C BC #### [facility] [address] [place] [address] Dr. Krystal Glass UA PROTEIN Negative Normal NEGATIVE/ TRACE [facility] Comment on above: Performed By: #### C BC #### [facility] [address] [place] [address] Dr. Krystal Glass UR MICRO IND NOT INDICATED Normal [facility] Comment on above: Performed By: #### C BC #### [facility] [address] [place] [address] Dr. Krystal Glass Urobilinogen Qn (U) 0.2 {Daily'U}/dL Normal 0.2 - 1. 0 [facility] Comment on above: Performed By: #### C BC #### [facility] [address] [place] [address] Dr. Krystal Glass LIPASEon 06-07-2022 Lipase [Catalytic activity/Vol] 58.0 U/L Critically low 73.0-393.0 [facility] Comment on above: Performed By: #### U MICRO, ERUR #### [facility] [address] [place] [address] Dr. Krystal Glass PROF 14(COMP METB)on 022 Albumin [Mass/Vol] 3.1 g/dL Critically low 3.4-5.0 [facility] Comment on above: Performed By: #### U MICRO, ERUR #### [facility] [address] [place] [address] Dr. Krystal Glass Albumin/Globulin [Mass ratio] 0.8 {ratio} Normal [facility] Comment on above: Performed By: #### U MICRO, ERUR #### [facility] [address] [place] [address] Dr. Krystal Glass ALP [Catalytic activity/Vol] 75 U/L Normal 46-116 [facility] Comment on above: Performed By: #### U MICRO, ERUR #### [facility] [address] [place] [address] Dr. Krystal Glass ALT [Catalytic activity/Vol] 19 U/L Normal 14-59 [facility] Comment on above: Performed By: #### U MICRO, ERUR #### [facility] [address] [place] [address] Dr. Krystal Glass Anion gap [Moles/Vol] 9.7 mmol/L Normal [facility] Comment on above: Performed By: #### U MICRO, ERUR #### [facility] [address] [place] [address] Dr. Krystal Glass AST [Catalytic activity/Vol] 18 U/L Normal 15-37 [facility] Comment on above: Performed By: #### U MICRO, ERUR #### [facility] [address] [place] [address] [address] Krystal Glass Bilirubin [Mass/Vol] 0.5 mg/dL Normal 0.2-1.0 [facility] Comment on above: Performed By: #### U MICRO, ERUR #### [facility] [address] [place] [address] [address] Krystal Glass Calcium [Mass/Vol] 9.5 mg/dL Normal 8.5-10.1 [facility] Comment on above: Performed By: #### U MICRO, ERUR #### [facility] [address] [place] [address] Dr. Krystal Glass Chloride [Moles/Vol] 101 mmol/L Normal 98-107 [facility] Comment on above: Performed By: #### U MICRO, ERUR #### [facility] [address] [place] [address] Dr. Krystal Glass CO2 [Moles/Vol] 27.2 mmol/L Normal 21.0-32.0 [place] Comment on above: Performed By: #### U MICRO, ERUR #### [facility] [facility] [address] [place] [address] Dr. Krystal Glass Creatinine [Mass/Vol] 1.01 mg/dL Normal 0.55-1.02 [facility] Comment on above: Performed By: #### U MICRO, ERUR #### [facility] [address] [place] [address] Dr. Krystal Glass EGFR-AF MEXICAN >60 Normal >=[address] [facility] Comment on above: Performed By: #### U MICRO, ERUR #### [facility] [address] [address] [address] Krystal Glass EGFR-NON AF MEXICAN 52 mL/min/1.73m2 Critically low >=60 [facility] Comment on above: Performed By: #### U MICRO, ERUR #### [facility] [address] [address] [address] Krystal Glass Globulin (S) [Mass/Vol] 4.1 g/dL Normal [facility] Comment on above: Performed By: #### U MICRO, ERUR #### [facility] [address] [place] [address] Dr. Krystal Glass Glucose [Mass/Vol] 180 mg/dL Critically high 74-106 [facility] Comment on above: Performed By: #### U MICRO, ERUR #### [facility] [address] [place] [address] Dr. Krystal Glass Potassium [Moles/Vol] 3.9 mmol/L Normal 3.5-5.1 [facility] Comment on above: Performed By: #### U MICRO, ERUR #### [facility] [address] [place] [address] Dr. Krystal Glass Protein [Mass/Vol] 7.2 g/dL Normal 6.4-8.2 [facility] Comment on above: Performed By: #### U MICRO, ERUR #### [facility] [address] [place] [address] Dr. Krystal Glass Sodium [Moles/Vol] 134 mmol/L Critically low 136-145 [facility] Comment on above: Performed By: #### U MICRO, ERUR #### [facility] [address] [place] [address] Dr. Krystal Glass Urea nitrogen [Mass/Vol] 18.0 mg/dL Normal 7.0-18.0 [facility] Comment on above: Performed By: #### U MICRO, ERUR #### [facility] [address] [place] [address] Dr. Krystal Glass Urea nitrogen/Creatinine [Mass ratio] 17.8 mg/mg Normal [facility] Comment on above: Performed By: #### U MICRO, ERUR #### [facility] [address] [place] [address] Dr. Krystal Glass TROPONIN, HIGH SENSITIVITYon 06-07-2022 HSTROP 17.5 pg/mL Normal 4.0-51.3 [facility] Comment on above: Result Comment: CUT- OFF POINTS HAVE BEEN ESTABLISHED BASED ON THE FOURTH UNIVERSAL DEFINITIONS OF MYOCARDIAL INFARCTION. THE UPPER REFERENCE LIMIT (URL) OF TROPONIN, DEFINED THE 99TH PERCENTILE OF cTnI DISTRIBUTION IN A REFERENCE POPULATION, HAS BEEN CONFIRMED THE DECISION THRESHOLD FOR GA DIAGNOSIS. Performed By: #### U MICRO, ERUR #### [facility] [address] [place], [place] [address] Dr. Krystal Glass XR CHEST 1 Von 06-07-2022 XR CHEST 1 V EXAMINATION: XR CHEST 1 V HISTORY: WEAKNESS COMPARISON: 03/16/2022 TECHNIQUE: AP portable erect FINDINGS: LUNGS: No significant pulmonary parenchymal abnormalities. VASCULATURE: No increased pulmonary vasculature. PLEURA: No pneumothorax, effusion, or pleural thickening. CARDIAC: No cardiomegaly or cardiac silhouette abnormality. MEDIASTINUM: No visible mass or adenopathy. BONES: No fracture or visible bone lesion. OTHER: Negative. IMPRESSION: No acute disease. Electronically authenticated by: DAVIDE SALAS Date: 2022-06-07 11:49 Normal [facility] Coding Summary.on 04-30-2022 Coding Summary. CD:[id number] Gh0bWw+PGhlYWQ+PE1FV AIpE55gvXXmfD9AF9zBH X8ADSMCJNXTKN7CQD2ni PS5BBknL4GxmiBu AupltQCxAF23BDk0WXW4 uUndVJlerQ9ioVRiQ6j6 EnZqIL14zA24UDlxYRJg ImD9QjVohavslEKy B0uaTlSnyHTsTrz+PHRh YmxlIHdpZHRoPScxMDAl ZgBpdGwdHH7yZh1aEXGh LWNvbGxhcHNlOiBj y9hdAGVzUYjlTV8pfMbt Z5RzkOC3QCPwi6z0Xa84 dHI+WILpZNZ0gIymQSrv b847HrOme4znTKW0 aKBvZXsuDHA3C93fj6J6 QIRvLRTlUNN5fWH9yI6v cQoazwwjC6CdnHRcGrY5 HRL9aWUvhK1gfSwn kogkeK1sAnq+I38VCL2Y BVQSIL5PQmn8E3JqPxut dHI+MB44ZZMdAM24sHJz rFCvb5qdsAk4XzSv QDAgEBE7hVhdOHdzu9Cp PVPwM66hhAVam3V2MMRt sNoalPEbEfDehAA4lG4i ARzfttcal9mdcgex Jnxak8oonp92sF72X49e UVioJJMnDFS6JATiYIDa kStrjd1luA6iAl2+IDxj g0eel9hnsMv8VwXs EIPcuvFocAnkDGC4s3Ev Ka78W7QcuQwxr8WnEbs2 ry91tBFvx3Y7bIV0QZnp XVUtdL0lXNitVpK2 RXYeXtWztA00pXYzJEeh Ui8xzQaigJthDY4hLBPc vvwuVKGzxN3jSLHucVCj xExvJH5bHVIakood t071FvYvYPY9NEOssHWb X8ScmV9uJpSdOWBlIWBl N2VyyFBaHUkvN469WKos DyB4JGVxfcYiF5Ea DMKzpRsfXlE1r2S1Wa7V l8TadjadSNH6MIurXCQ7 DmP5LvLpHnA4I5AzYlu8 VPZxgCcnUS7uQ4Uj NKYoivjsshjaaZF5FMLs XEGnrT60wXRrNAyjRw2s f3K2f278EGQvBEQfnO41 Dj6ypOfvNGTffBJE lD8wikbjv6pponnmIgLy KZVaGBq0IQm9MPNddVdf ZvPpARX0JkQ3ZMX5mNJi uI2izKhobomgyD1s Oyc+P67ijY4aNXC4GZB3 pkfaLRAjdhZyWV03VD58 F1ZlWpucaBRnaQF+PGRp owTtvWraIL1lYpZj j4vfy8AsFPwdX1XtGBXf TQerPut0YWWpPLC4uFF2 vN6yEMOoKPsiv1K4wET7 M6XqztCwym5dd6sg OXUpIEqwQ34ijITgs1E7 WKMaxHZ4EPFsgAitHjWf gV01Xsi+NQJqzQhxh8Lr Gbuao8wxc4ihoUg3 IjMwJSIgdmFsaWduPSJ0 a7MnWl41Z54fNDanPRIw CHCmFUKqPHGiwGxnvv8z bC9bCg3+PGNvbCB3 fEQ7wS8nEBBkHeQ3HHph V710IuRigLRoYdmnt2ti n6snyVg9FmDnMJOjxrWm oSteQJL4s9CgLq09 G30uIDxfWUMkHQByHLCr OYEzgIfeyg6tqR2aGj5+ QT8nt1ngvb54nU22qMA+ UNHbTPN0vLxsEQws LQVepA3dDJtbBiD6LRMk AgUjnX17gPKtHDdxEd8k mByxiPngKG0kAZPvpmpu c183YoFgk6wkLXAt vDJvMYmhVWJ1F15cq1G9 VJFfHNLgGRZ2mZJ5uF0q bGlnbjogbGVmdDsgdmVy tVnnTRiiBGjsY920 IHRvcDsnPlBhdGllbnQg QkNzXYj3A4AkNnl4PDKf uBeiQB3trFPmEIxeLq9o zVoyuNrpHM1iLALd aoffi642CcWeq2rgJUFb sWYpKOvkMOI4B79hj1N4 JWBlHVEmZBD1nEW2lB5z bGlnbjogbGVmdDsg caVexVtsVVusMFaeJ513 IHRvcDsnPkJpcnRoIERh bVF0CM09XW16wOCru9W4 lXU3U6OiCNDnrudm ajuorCH4CMDhUCUoeN06 Zg6fkQgwAe6lTUStDVF7 WIVycWIlT5JeuV8wMmHg CPPtRRVxL6IytZJe ZQpxN212LYrdXnR8AOHa lzRqY3EwXBJatEfaRkL8 s3U9Xi4AD4W9KF32HK34 yGHmb8J5qWW1E1Op UHCivrtxuxkpsPL0XYSl YOWvsE44Fr7uuZuaUi7k EOIfOJD4QRGorPPtS0Bt fM5qZkDtJMTrBKUj N0RthKZjMEhoA076UJty XnV8JNOaynUuF1MtPLCt lCkcOuP2u6T8Eh1TCOn6 FF34RA14nKAce2T1 lBZ8O8UaGSPohapgloec zRR2CTUoIVXztZ40Xa1v jLhnZi2hICUnOSH2ZCLs jANrK1GfkS0yHtPi BEFrMFPiJ6HjlSGgPEpv B926QKnnTeV6UPNohlTu D5FxHQMtbQohQnC4p9G7 It3EGJUxRE59INF7 xFT8PE99ED41I5FdBwmh dGFibGU+PHRhYmxlIHdp ZHRoPScxMDAlJyBzdHls EN4hGc3aDPTmLFJm oXsflRReCnNbo6tlSDHp QTnlDB4wkDsiK1MobOB5 HMWts8o8Hj60X37iQ5Zl dXA+HRIejXR2cRK9 fV5cGpXwMqL3JLjnH257 HiAglAOhLjnda6otz7ir oKj4FgV4QHXyjjJfuEjr TVE6v5IdZz31O01n IHdpZHRoPSIxNSUiIHZh cGczfb5vbG6fXf4+PGNv tCI4jUB7bF8hXxPuAdZ5 EPlcY554CuPccZEn Recni1ouv2taqEo3UwEb GSLfffXflWsuOSJ8s2Vq Wr78N4QoyYbfc6TcQpn0 sa55fRRtg1S1rMI4 P6JsPWIdzbfesYGdkFua CN4eLTGfzrifDFLmhF6w GKOmJ1s2XnCvPxZ8OWwz F4ZipcT8JIOchHFv CSjmBVD0E59lw6R9EILi BLZiLUH6sXE5hA9kvDen bjogbGVmdDsgdmVydGlj GUtlVQkuY598DENb mCzePZOyuC4iLKQspSXo lJddIA8zCPBtktyzLzDM BNWtMVSFLSMEK5oAAUP4 U9WrVuf5FPDnhLfa YY5fnTDcWFsxYv9xmRel lFveHE0hMPDzhaaqFBDi nT0vMFCrcRIypQqlER5g QZHhvcvvg316BrWa TZS3FGBbuKOpO0TxpI6x ClYdJHLlDOSwW7UuyJYj BPjpX595ZPnyRyL2JMHr erBvQ4ToIYOrpBtn MnC6j5T9Qa4cSe0zWP7c NTK1XL16NO28fBCaf7I3 gCP1M6CjLEVuixmnmylr kSQ3LPZcQBMgbI26 mLNgAYlkPg9tg9Z1w699 YZTtEEZjmE64Jf5mwJql VZObkHPZoX1hxbetb5ba cjogIzAwMDAwMDt0 VEy9OULqeRnrLyRoXCC9 DrS0ZQX9uXHeiD8ukTfa ssrzaV2mGus+ODcgWWVh fiG3Z5QeHjz1FUWh gJexRK8taUTzALjkZp4u mAunbNcyIA8pSPRsxoqc TZIqeO8tNKQtpXGpcFik ZB7pNGLsizvqc650 UuCrKSM3IBQmkBKmL7Gi jN2sNwKpFEJeDHVrB1Na oCLzUQwjE415CYzsDwY1 OKFvieNwB6FuLDAg gQtoNqT1l7R1Bj7WQA7h xCL3T5RxMyp7AWXbmOtq QG3lkOVsNToxSt6feAkk iEmvOG5vINZyhuwl KIVriM0eQEUarWXdoKwg YU3nUZGcnsxja179YgCs XEZ1CPQllIEwJ9HhnK6h IbGvTMGoHDSuL7Ty nCBoKXliE504FMygYcV7 JWNnsgTwJ4NgLQWybHtb TyC6x2K3Sr3HgLUyFLSd MH61DD48EU56H4Xd PjwvdGFibGU+PHRhYmxl IHdpZHRoPScxMDAlJyBz xVhaBU2kHc3tWMLkKBTf pIyyqZLpPuDhn3hn OXBeXBufKM0siSrpN6Fv wRP2KOBbn9i8Se15S52w J7XalXE+ZLZulCY5vXF2 qO3yJcQtQoY7RVeh N128BbTkiNCvPfpph6jt d8iszCa3FuGcBRVyxkJe kDmcXNX9v0XgQs14Q60t IHdpZHRoPSIyMCUi BIGneBgshi8anI9yPy8+ DQAdmHL7jMC1jY5fRuEm WyC9KTgyD697MhLkjWUf YcofR31pY7WqmBC+ OKAvZvu5OMXizOvcQL8w dEQoMOuiHu0kIIG6InTr GrAdIBkuC9NzURAwgueo lvzbkXT0TJStRRSl tD96Qs2qxUwyRc4wDGCm YUK0LJTrdBNtN0EptL4u EqOiNROkBQMaA6HgaOMg FXbyJ968TJwbZoP9 EJUtmnDoE9SvIARpyRht OfL0y3A6Gz9ZiWwcmVUm IH1lUsTuFOn9P9RxHem2 VIPouUxvGS2vhCYw KKmmKd3kdVbdpJqxKB8k LLXgkoegn771RfZgk7fx ZUVsoEVnBSrrKRN9T18s x1H1MQImQSQqMEQ3 lPM9fV2mzHfqdpovmXRy dDsgdmVydGljYWwtYWxp O664AUQmpRfsJfFUYqb3 V6XeMdd1UATwkJpe RS7vwVYmNKduRi7lhQiz eNpaWA0kOYHbehxag205 CqPjx4lmKUVdxXEbVNov SRX3M93mm9B3HNWj HOAaCHM2dKD0kR0uqReq bjogbGVmdDsgdmVydGlj NBstVXacU955QMXeyEeh Ij2AOkl2J7OuIhg4 NAKzbCtbZC5kzSUlKZfs Rv8afMdyyTqvUI7sGDRa kifab395ZkOue3glUWGf iCJyWJdhGMH0P55l h0H9NJKhWHTlNOE2uCZ1 dK1bmZycrmfuzPUtiDwm qpTrfBokTTvnSTssW171 IHRvcDsnPlBheWVy OjwvdGQ+EB95wn93Q6El GmobGvc7XEDxAWL3jRO5 iX7xCWYpXPvup4Q3bGN4 U6CrttZtfv0kz2yv YXBz (more content not included)... Normal [facility] Heart and Vascular Office/Cl inic Noteon 04-19-2022 Heart and Vascular Office/Clinic Note Chief Complaint 6 week follow up History of Present Illness Toribio Betts is a 86-year-old female patient of Dr. Ramos with past medical history for CAD, hypertension, hyperlipidemia, remote TIA. She was last seen by Dr. Ramos office, she was having episodes of hypotension upon standing reported by staff at the [facility]. Her furosemide was discontinued and she is here today for close follow-up. Her son is here today and provides much of the history. She is doing much better, blood pressure is stable off Lasix. She denies any chest pain, palpitations, shortness of breath at rest, dyspnea on exertion she has chronic swelling to lower extremities it is mild worse to the right leg is that was the leg she recently fractured. She has not noticed any abrupt weight gain, worsening shortness of breath, orthopnea. Son visits daily and feels she is doing well. Review of Systems Constitutional: no? fever, no? chills, no? sweats, no? weakness Respiratory: no? shortness of breath, no? cough, no? orthopnea, no? wheezing Cardiovascular: no? chest pain, no? palpitations, no? edema Additional ROS info: Except as noted in the above Review of Systems and in the History of Present Illness all other systems have been reviewed and are negative or noncontributory. Physical Exam Vitals & Measurements HR: 62(Peripheral) RR: 18 BP: 126/62 SpO2: 97% HT: 162 cm HT: 162.0 cm General: alert, no acute distress Neck: Supple, noJVD nocarotid bruit Cardiovascular: regular rate and rhythm, no murmur normal peripheral perfusion Respiratory: Lungs CTA, respirations non labored Extremities: no edema Neurological: oriented x 4, LOC appropriate for age, sensation equal & normal bilaterally, speech normal Skin: Warm, dry, intact- no rash or concerning lesions Assessment/Plan 1. Hypotension (I95.9: Hypotension, unspecified) Orthostatic hypotension has resolved with discontinuation of furosemide. Blood pressure is stable and she will be continued on her metoprolol and Imdur. 2. Chronic diastolic heart failure (I50.32: Chronic diastolic (congestive) heart failure) Patient is currently off her furosemide. She appears well compensated/euvolemi c. Call for new/worsening edema, orthopnea, SOB, or abrupt weight gain. Per son, patient is back to her baseline and he prefer she follow-up with MD in 6 months. He ensures me he will call for sooner reevaluation with new/worsening symptoms. Follow-up With When Contact Information Angella MAYERS, Axel Bravo Within 6 months [facility] [place] [address]- Additional Instructions: Problem List/Past Medical History Ongoing Age-related macular degeneration, wet, both eyes Bradycardia CAD (coronary artery disease) Chronic constipation Chronic diastolic heart failure Daytime hypersomnolence Fall at home Fatigue Gastritis History of CVA in adulthood History of TIAs HLD (hyperlipidemia) HTN (hypertension) Hypokalemia Insomnia Mild recurrent major depression Mitral regurgitation Non-sustained ventricular tachycardia Osteopenia Paroxysmal A-fib Pulmonary hypertension Type 2 diabetes mellitus Urinary retention Ventricular bigeminy Historical Hypercholesteremia Procedure/Surgical History Cardiac catheterization (10/2018), Breast biopsy sample. Medications acetaminophen 325 mg oral tablet, chewable, Oral, q6hr atorvastatin 40 mg Tab, 40 mg= 1 tab(s), Oral, Bedtime, 1 refills bisacodyl 10 mg Supp, 10 mg= 1 supp, Rectal, Daily, PRN calcium-vitamin D 600 mg-400 intl units oral tablet, 1 tab(s), Oral, Daily docusate sodium isosorbide dinitrate 30 mg oral tablet, 30 mg= 1 tab(s), Oral, BID magnesium oxide 250 mg oral tablet, 250 mg= 1 tab(s), Oral, BID, 3 refills Metoprolol tartrate 25 mg Tab, 25 mg= 1 tab(s), Oral, BID, 3 refills ondansetron 4 mg Tab, Oral, q8hr Plavix 75 mg Tab, 75 mg= 1 tab(s), Oral, Daily, 3 refills PreserVision, Oral, Daily Zoloft 25 mg Tab, 25 mg= 1 tab(s), Oral, Daily, 3 refills Allergies No Known Allergies Social History Alcohol - Denies Alcohol Use, 06/11/2018 Current, 06/14/2018 Current, Beer, 3-5 times per week, 05/19/2016 Substance Abuse - Denies Substance Abuse, 03/30/2015 Tobacco - Denies Tobacco Use, 02/16/2019 Never (less than 100 in lifetime) Tobacco Use:. Never Smokeless Tobacco Use:., 01/30/2022 Family History Crohn's disease: Mother. Diabetes mellitus type 2: Father. Immunizations Vaccine Date Status Comments diphtheria/pertussis , acel/tetanus adult 12/31/2021 Given Early/Late Reason: Nursing Judgment influenza virus vaccine, inactivated 06/27/2021 Given SARS-CoV-2 (COVID-19) mRNA-1273 vaccine 09/12/2020 Recorded HCP SARS-CoV-2 (COVID-19) mRNA-1273 vaccine 08/14/2020 Recorded [facility] influenza virus vaccine, inactivated 05/19/2020 Given influenza virus vaccine, inactivated 05/26/2019 Given influenza virus vaccine, inactivated 05/06/2018 Recorded pneumococcal (more content not included)... Normal [facility] Comment on above: Result Comment: Elec tronically Signed By: Angelina SMILEY CNP\george\Date and Time Signed: 04/19/22 02:14 EDT Consent for Treatmenton 04-04 Consent for Treatment [id number] #1.00CD:127 Normal [facility] Progress Note-Nurseon 2021 Progress Note-Nurse [id number] 9#1.00CD:[address] [facility] Progress Note-Nurse [id number] 4#1.00CD:127 Normal [facility] Insurance Correspondence Off iceon 04-11-2022 Insurance Correspondence Office [id number] #1.00CD:[address] [facility] CULTURE URINEon 03-18-2022 CULTURE URINE Isolate 1 Morganella morganii >100,000 cfu/ml of ORGANISM 1 Morganella morganii ANTIBIOTIC M.I.C RX STATUS Ampicillin >=32 R F Ampicillin/Sulbactam >=32 R F Piperacillin/Tazobac hurst <=4 S F Cefazolin >=64 R F Ceftazidime <=1 S F Ceftriaxone <=1 S F Ertapenem <=0.5 S F Imipenem 2 S F Amikacin <=2 S F Gentamicin <=1 S F Tobramycin <=1 S F Ciprofloxacin <=0.25 S F Levofloxacin <=0.12 S F Nitrofurantoin 128 R F Trimethoprim/Sulfame thoxazole <=20 S F Normal [facility] Comment on above: Performed By: #### C BC #### [facility] [address] [address] [address] Krystal Glass CARDIAC TERRY ADMITon 022 CK [Catalytic activity/Vol] 39 U/L Normal 26-192 [facility] Comment on above: Performed By: #### C MADM, CMP #### [facility] [address] [place] [address] Dr. Krystal Glass CK.MB [Mass/Vol] 0.77 ng/mL Normal <=3.[address] [facility] Comment on above: Performed By: #### C DAMONM, CMP #### [facility] [address] [place] [address] Dr. Krystal Glass HSTROP 14.6 pg/mL Normal 4.0-51.3 [facility] Comment on above: Result Comment: CUT- OFF POINTS HAVE BEEN ESTABLISHED BASED ON THE FOURTH UNIVERSAL DEFINITIONS OF MYOCARDIAL INFARCTION. THE UPPER REFERENCE LIMIT (URL) OF TROPONIN, DEFINED THE 99TH PERCENTILE OF cTnI DISTRIBUTION IN A REFERENCE POPULATION, HAS BEEN CONFIRMED THE DECISION THRESHOLD FOR GA DIAGNOSIS. Performed By: #### C BETH, CMP #### [facility] [address] [place] [address] Dr. Krystal Glass JOSE 36 ng/mL Normal 9-82 [facility] Comment on above: Performed By: #### C BETH, CMP #### [facility] [address] [place] [address] Dr. Krystal Glass CBC AUTO DIFFon 03-16-2022 BASO # 0.0 103/ul Normal 0.0-0.1 [facility] Comment on above: Performed By: #### C BC #### [facility] [address] [place] [address] Dr. Krystal Glass Basophils/100 WBC (Bld) 0.4 % Normal 0.2-2.0 [facility] Comment on above: Performed By: #### C BC #### [facility] [address] [place] [address] Dr. Krystal Glass EO # 0.2 103/ul Normal 0.0-0.7 [facility] Comment on above: Performed By: #### C BC #### [facility] [address] [place] [address] Dr. Krystal Glass Eosinophils/100 WBC (Bld) 3.3 % Normal 0.9-7.0 [facility] Comment on above: Performed By: #### C BC #### [facility] [address] [place] [address] Dr. Krystal Glass Erythrocyte distribution width (RBC) [Ratio] 13.5 % Normal 11.0-15.0 [facility] Comment on above: Performed By: #### C BC #### [facility] [address] [place] [address] Dr. Krystal Glass Hematocrit (Bld) [Volume fraction] 35.3 % Critically low 36.0-48.0 [facility] Comment on above: Performed By: #### C BC #### [facility] [address] [place] [address] Dr. Krystal Glass Hemoglobin (Bld) [Mass/Vol] 11.5 g/dL Critically low 12.0-16.0 [facility] Comment on above: Performed By: #### C BC #### [facility] [address] [place] [address] Dr. Krystal Glass IG # 0.01 10e3/ul Normal 0.00-0.03 [facility] Comment on above: Performed By: #### C BC #### [facility] [address] [place] [address] Dr. Krystal Glass IG % 0.1 % Normal 0.0-0.5 [facility] Comment on above: Performed By: #### C BC #### [facility] [address] [place] [address] Dr. Krystal Glass LYMPH # 1.4 103/ul Normal 1.2-3.8 [facility] Comment on above: Performed By: #### C BC #### [facility] [address] [place] [address] Dr. Krystal Glass Lymphocytes/100 WBC (Bld) 19.7 % Critically low 20.5-60.0 [facility] Comment on above: Performed By: #### C BC #### [facility] [address] [place] [address] Dr. Krystal Glass MANUAL DIFF REQ NO Normal [facility] Comment on above: Performed By: #### C BC #### [facility] [address] [place] [address] Dr. Krystal Glsas MCH (RBC) [Entitic mass] 30.3 pg Normal 26.7-34.0 [facility] Comment on above: Performed By: #### C BC #### [facility] [address] [place] [address] Dr. Krystal Glass MCHC (RBC) [Mass/Vol] 32.6 g/dL Normal 29.9-35.2 [facility] Comment on above: Performed By: #### C BC #### [facility] [address] [place] [address] Dr. Krystal Glass MCV (RBC) [Entitic vol] 92.9 fL Normal 81.0-99.0 [facility] Comment on above: Performed By: #### C BC #### [facility] [address] [place] [address] Dr. Krystal Glass MONO # 0.6 103/ul Normal 0.3-0.8 [facility] Comment on above: Performed By: #### C BC #### [facility] [address] [place] [address] Dr. Krystal Glass Monocytes/100 WBC (Bld) 8.0 % Normal 1.7-12.0 [facility] Comment on above: Performed By: #### C BC #### [facility] [address] [place] [address] Dr. Krystal Glass NEUT # 4.7 103/ul Normal 1.4-6.5 [facility] Comment on above: Performed By: #### C BC #### [facility] [address] [place] [address] Dr. Krystal Glass Neutrophils/100 WBC (Bld) 68.5 % Normal 43.0-75.0 [facility] Comment on above: Performed By: #### C BC #### [facility] [address] [place] [address] Dr. Krystal Glass Platelet mean volume (Bld) [Entitic vol] 10.0 fL Normal 9.5-13.5 [facility] Comment on above: Performed By: #### C BC #### [facility] [address] [place] [address] Dr. Krystal Glass PLT 254 103/ul Normal 150-450 [facility] Comment on above: Performed By: #### C BC #### [facility] [address] [place] [address] Dr. Krystal Glass RBC 3.80 106/ul Critically low 4.20-5.40 [facility] Comment on above: Performed By: #### C BC #### [facility] [address] [place] [address] Dr. Krystal Glass WBC 6.9 103/ul Normal 4.0-11.0 [facility] Comment on above: Performed By: #### C BC #### [facility] [address] [place] [address] Dr. Krystal Glass Covid-19 PCR ([facility])on 03-04 SARS-CoV-2 (COVID-19) RNA KIMBERLY+probe Ql (Unsp spec) Not detected Normal NOT DETECTED [facility] Comment on above: Result Comment: When diagnostic testing is negative, the possibility of a false negative should be considered in the context of a patient's recent exposures and the presence of clinical signs and symptoms consistent with SARS-CoV-2. This test is not yet approved or cleared by the [place] FDA. When there are no FDA-approved or cleared tests available, and other criteria are met, FDA can make tests available under an emergency access mechanism called an Emergency Use Authorization (EUA). The EUA for this test is supported by the [place] of Health and Human Service's declaration that circumstances exist to justify the emergency use of in vitro diagnostics for the detection and/or diagnosis of the virus that causes COVID-19. This EUA will remain in effect for the duration of the COVID-19 declaration justifying emergency of IVDs, unless it is terminated or revoked by the FDA (after which the test may no longer be used). Performed By: #### C BC #### [facility] [address] [place] [address] Dr. Krystal Glass ER URINE PROFILEon 2 Bilirubin Ql (U) Negative Normal NEGATIVE [facility] Comment on above: Performed By: #### E RICHARD HENLEY #### [facility] [address] [place] [address] Dr. Krystal Glass Clarity (U) TURBID Abnormal CLEAR [facility] Comment on above: Performed By: #### JACKIE VIERAICRO #### [facility] [address] [place] [address] Dr. Krystal Glass Color (U) YELLOW Normal YELLOW [facility] Comment on above: Performed By: #### ENIO VIERARO #### [facility] [address] [place] [address] Dr. Krystal ROSARIO A micrscopic examination will be performed if indicated. Normal [facility] Comment on above: Performed By: #### ENIO VIERARO #### [facility] [address] [place] [address] Dr. Krystal Glass Glucose Ql (U) Negative Normal NEGATIVE [facility] Comment on above: Performed By: #### ENIO VIERARO #### [facility] [address] [place] [address] Dr. Krystal Glass Hemoglobin Ql (U) SMALL Abnormal NEGATIVE [facility] Comment on above: Performed By: #### ENIO VIERARO #### [facility] [address] [place] [address] Dr. Krystal Glass Ketones Ql (U) Negative Normal NEGATIVE [facility] Comment on above: Performed By: #### ENIO VIERARO #### [facility] [address] [place] [address] Dr. Krystal Glass LEUKOCYTES MODERATE Abnormal NEGATIVE [facility] Comment on above: Performed By: #### ENIO VIERARO #### [facility] [address] [place] [address] Dr. Krystal Glass Nitrite Ql (U) Positive Abnormal NEGATIVE [facility] Comment on above: Performed By: #### JACKIE VIERAICRO #### [facility] [address] [place] [address] Dr. Krystal Glass pH (U) 7.0 [pH] Normal 5-9 [facility] Comment on above: Performed By: #### JACKIE VIERAICRO #### [facility] [address] [place] [address] Dr. Krystal Glass Protein (U) [Mass/Vol] 30 mg/dL Abnormal NEGATIVE/ TRA CE [facility] Comment on above: Performed By: #### July HENLEY UMICRO #### [facility] [address] [place] [address] Dr. Krystal Glass SPEC GRAVITY 1.010 Normal 1.005-<=1.025 [facility] Comment on above: Performed By: #### JACKIE VIERAICRO #### [facility] [address] [place] [address] Dr. Krystal Glass UR MICRO IND INDICATED Normal [facility] Comment on above: Performed By: #### ENIO VIERARO #### [facility] [address] [place] [address] Dr. Krystal Glass Urobilinogen Qn (U) 0.2 {Daily'U}/dL Normal 0.2 - 1. 0 [facility] Comment on above: Performed By: #### ENIO VIERARO #### [facility] [address] [place] [address] Dr. Krystal Glass PROF 14(COMP METB)on 022 Albumin [Mass/Vol] 2.9 g/dL Critically low 3.4-5.0 Th [facility] Comment on above: Performed By: #### Marquis CAMPOS CMP #### [facility] [address] [place] [address] Dr. Krystal Glass Albumin/Globulin [Mass ratio] 0.7 {ratio} Normal [facility] Comment on above: Performed By: #### C BETH, CMP #### [facility] [address] [place] [address] Dr. Krystal Glass ALP [Catalytic activity/Vol] 112 U/L Normal 46-116 [facility] Comment on above: Performed By: #### C BETH, CMP #### [facility] [address] [place] [address] Dr. Krystal Glass ALT [Catalytic activity/Vol] 58 U/L Normal 14-59 [facility] Comment on above: Performed By: #### C BETH, CMP #### [facility] [address] [address] [address] Krystal Glass Anion gap [Moles/Vol] 11.9 mmol/L Normal [facility] Comment on above: Performed By: #### C BETH, CMP #### [facility] [address] [address] [address] Krystal Glass AST [Catalytic activity/Vol] 19 U/L Normal 15-37 [facility] Comment on above: Performed By: #### C BETH, CMP #### [facility] [address] [place] [address] Dr. Krystal Glass Bilirubin [Mass/Vol] 0.4 mg/dL Normal 0.2-1.0 [facility] Comment on above: Performed By: #### C BETH, CMP #### [facility] [address] [place] [address] Dr. Krystal Galss Calcium [Mass/Vol] 9.4 mg/dL Normal 8.5-10.1 [facility] Comment on above: Performed By: #### C BETH, CMP #### [facility] [address] [place] [address] Dr. Krystal Glass Chloride [Moles/Vol] 101 mmol/L Normal 98-107 [facility] Comment on above: Performed By: #### C BETH, CMP #### [facility] [address] [place] [address] Dr. Krystal Glass CO2 [Moles/Vol] 26.8 mmol/L Normal 21.0-32.[address] [facility] Comment on above: Performed By: #### C BETH, CMP #### [facility] [address] [place] [address] Dr. Krystal Glass Creatinine [Mass/Vol] 0.77 mg/dL Normal 0.55-1.02 [facility] Comment on above: Performed By: #### C BETH, CMP #### [facility] [address] [address] [address] Krystal Glass EGFR-AF MEXICAN >60 Normal >=60 [place] Comment on above: Performed By: #### C BETH, CMP #### [facility] [address] [address] [address] Krystal Glass EGFR-NON AF MEXICAN >60 Normal >=60 [facility] Comment on above: Performed By: #### C DAMONM, CMP #### [facility] [address] [address] [address] Krystal Glass Globulin (S) [Mass/Vol] 3.9 g/dL Normal [facility] Comment on above: Performed By: #### C BETH, CMP #### [facility] [address] [place] [address] Dr. Krystal Glass Glucose [Mass/Vol] 201 mg/dL Critically high 74-106 [facility] Comment on above: Performed By: #### C BETH, CMP #### [facility] [address] [place] [address] Dr. Krystal Glass Potassium [Moles/Vol] 3.7 mmol/L Normal 3.5-5.1 [facility] Comment on above: Performed By: #### C BETH, CMP #### [facility] [address] [place] [address] Dr. Krystal Glass Protein [Mass/Vol] 6.8 g/dL Normal 6.4-8.2 [facility] Comment on above: Performed By: #### C BETH, CMP #### [facility] [address] [place] [address] Dr. Krystal Glass Sodium [Moles/Vol] 136 mmol/L Normal 136-145 [facility] Comment on above: Performed By: #### C BETH, CMP #### [facility] [address] [place] [address] Dr. Krystal Glass Urea nitrogen [Mass/Vol] 11.0 mg/dL Normal 7.0-18.0 [facility] Comment on above: Performed By: #### C BETH, CMP #### [facility] [address] [place] [address] Dr. Krystal Glass Urea nitrogen/Creatinine [Mass ratio] 14.3 mg/mg Normal [facility] Comment on above: Performed By: #### C BETH, CMP #### [facility] [address] [place] [address] Dr. Krystal Glass URINE MICROSCOPIC ONLYon BACTERIA MODERATE Abnormal NONE SEEN [facility] Comment on above: Performed By: #### July HENLEY UMICRO #### [facility] [address] [place] [address] Dr. Krystal Glass Bacteria identified Cx Nom (U) INDICATED Normal [facility] Comment on above: Performed By: #### July HENLEY UMICRO #### [facility] [address] [place] [address] Dr. Krystal Glass CAST NONE SEEN Normal NONE SEEN [facility] Comment on above: Performed By: #### July HENLEY UMICRO #### [facility] [address] [place] [address] Dr. Krystal Glass Crystals LM Nom (Urine sed) NONE SEEN Normal NONE SEEN [facility] Comment on above: Performed By: #### July HENLEY UMICRO #### [facility] [address] [place] [address] Dr. Krystal Glass Epithelial cells LM Ql (Urine sed) RARE Normal NONE SEEN /RARE [facility] Comment on above: Performed By: #### July HENLEY UMICRO #### [facility] [address] [place] [address] Dr. Krystal Glass MUCOUS NONE SEEN Normal NONE SEEN [facility] Comment on above: Performed By: #### July HENLEY UMICRO #### [facility] [address] [place] [address] Dr. Krystal Glass RBC 5-10 Abnormal 0-2 [facility] Comment on above: Performed By: #### July HENLEY UMICRO #### [facility] [address] [place] [address] Dr. Krystal Glass WBC 20-50 Abnormal NONE SEEN [facility] Comment on above: Performed By: #### E RICHARD HENLEY #### [facility] [address] [place] [address] Dr. Krystal Glass XR ABD FLAT UP_PA Parth 03-16 XR ABD FLAT UP_PA CH EXAM: XR ABD FLAT UP_PA CH HISTORY: NAUSEA WITH VOMITING, UNSPECIFIED COMPARISON: None. TECHNIQUE: FINDINGS: Anterior view of chest demonstrates the lungs to be fully inflated without acute disease. Heart size and mediastinum within expected limits. 2 views of the abdomen demonstrate scattered air and stool throughout nondistended small and large bowel. No intraperitoneal free air or masses seen. Chronic osseous changes seen. IMPRESSION: Negative exam. No acute or obstructive abdominal radiographic findings to explain symptoms. Electronically authenticated by: MAXIMO LYNN Date: 2022-03-16 14:10 Normal [facility] Coding Summary.on 03-14-2022 Coding Summary. [id number] Gh0bWw+PGhlYWQ+PE1FV FTtE52jgZDomH1OQ4hVN T9UJEXWUVOCNP4PXX5mr QO5COlpD7CnjwWl IocvcLZhED88AIo1QRI4 jGouQAtnxE4orHOxX4s3 TfRlTV97bX14UQbyWHQr UkL6FoVznwbqnVPi P8hnKpRxuCMyNzf+PHRh YmxlIHdpZHRoPScxMDAl BjZsjRirBX8lHd1zFCSg LWNvbGxhcHNlOiBj p5ycZAInEFcdQK9jqXvi N2PmzNZ8KCZxg3w9Db07 dHI+CUMmIZC3dQmmPJvg i331LqNxy7crGFE5 dOTeQKtnMJA0A87ii3O7 AIFpPYQeZOZ1dEE2lI5d oOgetlhbO6YxqZAmQkO3 QKB6iLLwqV7ajNlx uuhseD3kBjv+Y40YQH1B ATONSL8CIed5H2RrQbnh dHI+EN32HEVxUR61hAZd yMWde1lqdUk3XeVy PBHvDKX7eRvtQTwqu6Zf AFTvV95qaXWjq3W3YSFp eKmtoJJfJcNcuRU7dW3a EMnzopunm2ctnrvv Lkqnn0mnji68iV42K13n XGuwWAZoGIE1QFDsCTJh kVskgh4mbG0wGb2+IDxj d8pqd0rswJh9VpPq RUWjnjTtfEmiVTI1a4Vw Wv82H6SxiHkrp5HxSrz3 on78fDUfr3M2aUX0VGyb BOSviY9kSUycIjU6 RKKtSrWogS29kMRsKQvz Uo5naOkjfQufUL2xWQTh ntkqOXZwxE8oASYtrJVc kRfkFX0lJOSdnicd b637QpYnSZM5DUOpoIOf F3OmvE1fCsVeGWRjQDRs K2HmaWSmMMglF869TPzc QtF1MDXjjaZpT0El HIJpkDmlKgY4q2T0Mc6D y9ShltjeEOE7BHimDMZ0 KmPlFsHtOjC7N6SiPcl4 PEHrhFbgUB4aX6Fu WOCumsmteuyjlFR5ZNUw OXTrbB41zACzAAmoLe7m a8O3z479EUYiATDoaK91 Lc9ezHkdYOObtRJC lT1qaefnv7bbdmhaFtJg MSNcMSi0KGn9NCIzhOrx ImYqMFJ7MgV0PBS3vMOz rT1nhNghhkanaB4s Oyc+L34hdX3nMUD8MNJ5 yboqPEDslnCqST53HM60 Y7McRlzigLXezKH+PGRp iwEkfVcdBS8iPoRi b9bpv5OhVUiyG8XyBNLq KBxrWrb1GXCdNMN5vBX5 aH6xLROdLOoaq2T1tUC4 M8LydmEuwl3sa8im TZLsNPjhQ92yaGNza3S4 CCHlnEB4RJRceBcmMmYa xP40Lzh+LOPgtLyqi0Pn Chogx6npy9idoKj1 IjMwJSIgdmFsaWduPSJ0 s7IcZc50P28gTCncNLTe GWYxYJJdOSRrnWxdiu3z bL7dUq2+PGNvbCB3 kWI1qB0kWDHuYiI4HAlw U168IhYgkEGqQxutd9nc i9oskVp8MaNrESThhsTl zYoaIJA5s1YfZd37 A09bWYasTURnQOLtOVKm OMHyaVnnof4vcW2nMl2+ RB0zo0ohjj75mM15iNC+ QROpAUJ5rIpkDPve SCAfpI4vGNpsVuD1JGNz DjUlgG46gPSxGVhgLj5l iTzvtLgqSP6uAQNfbpvv s425WjTzy1mgIJDu qNFfPEksXKQ7O62fl7N0 EXRfJLYzHEE3nRE1lX5z bGlnbjogbGVmdDsgdmVy kBgoLGhoKPwyA201 IHRvcDsnPlBhdGllbnQg DqFjHKl5Z9SfPdu8LRPn sYvxEK9ffSJhZIlbSc0y vFzmwEpiKT1sMPOp xhexj883CtWao3rnZUIe bXCgWPcvBCS4D88df7L6 IVPrEIAsMSV3gXN4fF6y bGlnbjogbGVmdDsg dhPqxLgyFUtqNSvzM292 IHRvcDsnPkJpcnRoIERh dEY9YK70FJ63tUTvu3J0 uHB5T6PqPAJyapbz mliyrKN3UWZfPQAsaC15 Mj0iaYaqHm0mYMCjHWM2 KIMcoLXjC1KjuP6kGsVh NCDnUYXyE2CzuUPp PCtcV964JNpcLpP2NRMb juEeZ8TsTEAakDovXrL8 d6X3No6RW2M6FR03MW37 iGAnx7D6lLG2L9Os SGEnurjdsduyeJT1DCGr TNGvtJ23Yc9vaOefEe7e WWTeTQF0SSYkuUOlF4Ir pD7fVlXzUDTbRZPz K6ZetCJjDSktM536XLjm WwG9EUNlloLtM0JyDYCz hTmtYpD9p0P8Bf4FMDc7 QA97AG96eZBhj4B2 oMK8N5SlEBMjvmwsuala tHY1ZLCuBXPsuG98Ud0j vIgtGp0hCMMgYNS3LEGp bMSgI3IxoJ0jPbYi SSEzYMRkJ8XsnFKlTDlw G310DJjwWiJ2UKVkrgZq H7AvXDKxkTysWnF1s2B9 Sp1ACSLvNQ57XZP3 iWB8TG33OC71Y0WwBimn dGFibGU+PHRhYmxlIHdp ZHRoPScxMDAlJyBzdHls YK3gXn2lPUEcLAIz uHeieZJaUkBpy4gdWQTu NTgvQE2qqSwvC9UkoSV3 CJOqo7k1Nk37S67zX3Pz dXA+QVAclMJ3vYL3 jH7mMtDaUjZ6JKtlV344 PkKicWWhTuwpj3tyw5qe vZd4PiH6PTRikgWmvDnp GMJ0r9OxDh60L53y IHdpZHRoPSIxNSUiIHZh rHtlzx5poB2pAx4+PGNv pRN3nOC0mQ1dIfAqIwY6 PDhoS227VzZsqSOu Bkkmy3bhx3ilaVz1LgFe GNCpolDojCooJTX1x8Nn Yv83Y1NomNqya9MhKvn8 yi85iZGpo8D9xDX9 L2DsTRLegmlnjRHdeUqu FV9oBDOhecjfYRKgsI5p INRcL9l0QkBwIgI6HOtq K8RhpuN9GXRopJFi WZdkXRR1Y20cc9V9JGVx EBByTTP5eFH6yV2nySau bjogbGVmdDsgdmVydGlj YIenLDtuZ243FUKc qFrtLBMzkX1oIBXvxHMs bNtlLD7aJSJxujamBkEP ABLlTFFBDYICK6eCKMP5 G1EgDmj1CKSihYua TA6tfBGeRThhTu8tvIfj oYlmBR3fIKTxznkdHFAp nE9tJRTgzLPvrVkuAY6r FIGgvcfxr840WtIu PKA6QSWymDIfI2VscB6c AtAfMYQrNBPlC3JhjSSj RCfzB411WNovEsL4SSFu osGvI2KyJBQcsUzm KgP6a9V3Hp7qNg6yKQ9n ZOF9IJ88UY31aIAmh6Q9 gML7Q3LwULRgkzokzrlf lVP2FRXsGIZnyQ17 pJFbVNfkTt6yx6W8p691 TNCbDECoiH88Tr4wtYab FFHxdKKOvD9dhdalv8nu cjogIzAwMDAwMDt0 EIr1SNXenDejBfCzMXR2 UiR7GGJ5bQSyfP7ivVir krejgA8tCly+ODcgWWVh wvN2V6ItEpi6LPNo cLktRT5maBEdWFaaOj2r iZnojRvpFW8jIGErjxqa OCPjtM3oXASipYNluApd YN5uBLCozivye280 IkLpOGZ3YWQlbYEsL9Zo cO5xYdSuJLYeRAOzF6Gn yPElNVswK106YXzfOjM2 RMYximZnF2LcFJEr rMztBwQ3c2Z3Oa1IUC9u jZU4K7FuEmp2VEHutBsx UY5uaGUuUTxoNj9llEew rEbdXY7eUUNwfbbg AXCyaA0rHZObxOPglNtt AE7bBVZxkbinb705AySh GBK8OKPguGKrX9SjtY6w NxRvXKAfAJMfK5Ft iPSkUKekN583TFthEvS1 KXNppvNbT1IjCGKdyIwn FlJ8u9B4Ig5NcEGzTSIl ZT06VG19RZ15K4Oy PjwvdGFibGU+PHRhYmxl IHdpZHRoPScxMDAlJyBz pWahJZ4oCx2uCRTkHJUi gRgidHCoAsBcj4uh LFEaCIoiXN4poOzcI1Yl jYY9IVQrc0l7Nj75I49i F0QiaBK+MVWddQB9zCE7 vD1gYnBkCzZ5AGyo A267QpQhkNQfLzdjv3ta t4qttDw1XyJvFPYyzkZr vTslCLO1e2NeLg11Q10s IHdpZHRoPSIyMCUi UFRcoYhmfd8apH8jYy3+ WNSpmDI6xQU1wX4zZlOw AnO3RJmkC281SoEkiWKl ZfmcP43vA7UtlLR+ OPSmOms0EPWdtQnzOH8j gMUjYHcdTj1gIXI6EdIr KcUxKDjjZ4WyMUTwteef moqynIE8QGOeGBPr mD07Vd6hxGemMt9oYNVn OYY3QVGsyQSgO7LdkV3w ReZsEIPgYQNlZ8EleDWv PKjeK365TTtaBxJ9 YMOwmlZvM9PdRMStqPcc YvW1d8F7Lk9UvVkjfYJm FV6wWeBzQVi9I7QmBym3 YWSbmLojRM0chMCi UYuyVi8juPnpfZpoCA7n NTRtgqkwf780YqUdo9pl GNCkyRVuXFngWFI7L27d u5I5LBQlCJPiXFU5 yOT5vK7anYmmdvziwDGa dDsgdmVydGljYWwtYWxp R508FZCljUkeNzRUOuj6 F8EdTlk1MBWzhQem MQ1ahLYzRGlvOt3dbOce gXzyOA0bOURzldpte257 LwHbr8aoJMLbqXFpXQlk JSD4R08hx8Q4GFZr AYLiZYC8aLM0gC4rzMcp bjogbGVmdDsgdmVydGlj VKxhTOwkC316SBUsaLud Fo3WGzx8V5IcGht7 CQRmvCezWJ3heSCkLVsv Vs1uhAcpvAymFE2rZZLz xhmej486MwJbx2yqCDPi tZVoAKxbWVX6H30l v9N1YNPgMCPcGDT6xNS0 pU8hvTkvovlosWMnnBwp oyGcfWukXEoqROpsY134 IHRvcDsnPlBheWVy OjwvdGQ+FG46le77R7Bj UjxjGvr7QYNaDUH5tIF6 xK3mMJKhYUerh7S2uJW2 V3GlabWirf5cq8uj YXBz (more content not included)... Normal [facility] Heart and Vascular Office/Cl in Noteon 03-09-2022 Heart and Vascular Office/Clinic Note Chief Complaint Hypotension w/ Exercise History of Present Illness Toribio Betts is an 86-year-old female who presents today for follow-up of atrial fibrillation, hypertension, coronary artery disease, hypertrophic cardiomyopathy, diabetes, hypertension, and hyperlipidemia. She is accompanied today by an adult male. Toribio fell on 12/29/2021 and fractured her fibula. She was seen at [facility] by trauma surgery and remained in the hospital for 1 week. Since being discharged, she has been in rehab at the [facility]. The [facility] called to set up this appointment due to Toribio falling asleep during physical therapy sessions with any type of exertion. The adult male explains that Toribio's blood pressure was good, but he was told that she had extremely low blood pressures during the episodes of sleepiness. Toribio contracted COVID-19 4 weeks ago. She is visited by 3 different people each day and there was no indication of sleepiness at that time. However, when there is physical activity, her blood pressure will decrease. Toribio does have slight lower extremity edema. She denies shortness of breath, chest discomfort, or chest tightness. The adult male explains that Dr. Mann is not on the appointment list currently. Review of Systems Constitutional: no fever, no chills, no weakness, no fatigue Respiratory: no shortness of breath, no cough, no orthopnea, no wheezing Cardiovascular: no chest pain, no palpitations, Positive for lower extremity edema Neuro: no dizziness no light headed no syncope. Positive for sleepiness with exertion Additional ROS info: Except as noted in the above Review of Systems and in the History of Present Illness all other systems have been reviewed and are negative or noncontributory. Physical Exam Vitals & Measurements HR: 73(Peripheral) RR: 18 BP: 138/66 SpO2: 98% HT: 156.0 cm HT: 156 cm WT: 54.0 kg WT: 54 kg BMI: 22.19 General: alert, no acute distress Neck: Trachea midline, no JVD, no bruit Cardiovascular: regular rate and rhythm, no murmur, normal peripheral perfusion Respiratory: Lungs CTA, respirations non labored Extremities: no edema, no deformity, no trauma Neurological: oriented x 4, LOC appropriate for age, sensation equal & normal bilaterally, speech normal Skin: warm, dry intact Assessment/Plan Toribio Betts is an 86-year-old female 1. Atrial fibrillation, hypertension, coronary artery disease, hypertrophic cardiomyopathy, diabetes, hypertension, and hyperlipidemia. Toribio will discontinue furosemide. ATTESTATION: Documentation services were performed after patient or guardian consented to allow [employer] to record this visit. HANNAH marketing proposal specialist and provider reviewed before signing. HANNAH: Jaqui Parr Follow-up No qualifying data available Toribio will follow-up in 6 weeks with Angelina Smiley CNP. Problem List/Past Medical History Ongoing Age-related macular degeneration, wet, both eyes Bradycardia CAD (coronary artery disease) Chronic constipation Chronic diastolic heart failure Daytime hypersomnolence Fall at home Fatigue Gastritis History of CVA in adulthood History of TIAs HLD (hyperlipidemia) HTN (hypertension) Hypokalemia Insomnia Mild recurrent major depression Mitral regurgitation Non-sustained ventricular tachycardia Osteopenia Paroxysmal A-fib Pulmonary hypertension Type 2 diabetes mellitus Urinary retention Ventricular bigeminy Historical Hypercholesteremia Procedure/Surgical History Cardiac catheterization (10/2018), Breast biopsy sample. Medications acetaminophen 325 mg oral tablet, chewable, Oral, q6hr atorvastatin 40 mg Tab, 40 mg= 1 tab(s), Oral, Bedtime, 1 refills bisacodyl 10 mg Supp, 10 mg= 1 supp, Rectal, Daily, PRN calcium-vitamin D 600 mg-400 intl units oral tablet, 1 tab(s), Oral, Daily Daily Multi, 1 tab(s), Oral, Daily docusate sodium Eliquis 2.5 mg oral tablet, 2.5 mg= 1 tab(s), Oral, BID, 1 refills isosorbide dinitrate 30 mg oral tablet, 30 mg= 1 tab(s), Oral, BID Lasix 20 mg Tab, 20 mg= 1 tab(s), Oral, Daily, 1 refills magnesium oxide 250 mg oral tablet, 250 mg= 1 tab(s), Oral, BID, 3 refills Metoprolol tartrate 25 mg Tab, 25 mg= 1 tab(s), Oral, BID, 3 refills omeprazole 20 mg Cap-DR, 20 mg= 1 cap(s), Oral, Daily, 1 refills ondansetron 4 mg Tab, Oral, q8hr Plavix 75 mg Tab, 75 mg= 1 tab(s), Oral, Daily, 3 refills PreserVision, Oral, Daily Zoloft 25 mg Tab, 25 mg= 1 tab(s), Oral, Daily, 3 refills Allergies No Known Allergies Social History Alcohol - Denies Alcohol Use, 06/11/2018 Current, 06/14/2018 Current, Beer, 3-5 times per week, 05/19/2016 Substance Abuse - Denies Substance Abuse, 03/30/2015 Tobacco - Denies Tobacco Use, 02/16/2019 Never (less than 100 in lifetime) Tobacco Use:. Never Smokeless Tobacco Use:., 01/30/2022 Family History Crohn's disease: Mother. Diabetes mellitus type 2: Father. Immunizations Vaccin (more content not included)... Normal [facility] Comment on above: Result Comment: Elec tronically Signed By: Angella MAYERS, Axel Bravo\.br\Date and Time Signed: 03/09/22 16:34 EDT\.br\Electronically Co-Signed By: Jaqui Johnson\.br\Date and Time Co-Signed: 03/07/22 15:16 EDT Consent for Treatmenton Consent for Treatment [id number] 20 [id number] #1.00CD:127 Normal [facility] Outside Recordson 03-07-2022 Outside Records [id number]# 1.00CD:[address] [facility] Physician Orderon 03-07-2022 Physician Order [id number]# 1.00CD:[address] [facility] Progress Note-Physicianon Progress Note-Physician [id number]# 1.00CD:[address] [facility] CULTURE URINEon 02-06-2022 CULTURE URINE Isolate 1 Escherichia coli >100,000 cfu/mL of Isolate 2 Morganella morganii >100,000 cfu/mL of ORGANISM 2 Morganella morganii ANTIBIOTIC M.I.C RX STATUS Ampicillin >=32 R F Ampicillin/Sulbactam >=32 R F Piperacillin/Tazobac hurst <=4 S F Cefazolin >=64 R F Ceftazidime <=1 S F Ceftriaxone <=1 S F Ertapenem <=0.5 S F Imipenem 2 S F Amikacin <=2 S F Gentamicin <=1 S F Tobramycin <=1 S F Ciprofloxacin <=0.25 S F Levofloxacin <=0.12 S F Nitrofurantoin 128 R F Trimethoprim/Sulfame thoxazole <=20 S F ORGANISM 1 Escherichia coli ANTIBIOTIC M.I.C RX STATUS Ampicillin 8 S F Ampicillin/Sulbactam <=2 S F Piperacillin/Tazobac hurst <=4 S F Cefazolin <=4 S F Ceftazidime <=1 S F Ceftriaxone <=1 S F Ertapenem <=0.5 S F Imipenem <=0.25 S F Amikacin <=2 S F Gentamicin <=1 S F Tobramycin <=1 S F Ciprofloxacin <=0.25 S F Levofloxacin <=0.12 S F Nitrofurantoin <=16 S F Trimethoprim/Sulfame thoxazole <=20 S F Normal [facility] Comment on above: Performed By: #### C BC #### [facility] [address] [place] [address] Dr. Krystal Glass AMYLASEon 02-04-2022 Amylase [Catalytic activity/Vol] 30 U/L Normal 25-115 [facility] Comment on above: Performed By: #### C BC #### [facility] [address] [place] [address] Dr. Krystal Glass CBC AUTO DIFFon 02-04-2022 BASO # 0.1 103/ul Normal 0.0-0.1 [facility] Comment on above: Performed By: #### U MICRO, ERUR #### [facility] [address] [place] [address] Dr. Krystal Glass Basophils/100 WBC (Bld) 0.4 % Normal 0.2-2.0 [facility] Comment on above: Performed By: #### U MICRO, ERUR #### [facility] [address] [place] [address] Dr. Krystal Glass EO # 0.1 103/ul Normal 0.0-0.7 [facility] Comment on above: Performed By: #### U MICRO, ERUR #### [facility] [address] [place] [address] Dr. Krystal Glass Eosinophils/100 WBC (Bld) 1.0 % Normal 0.9-7.0 [facility] Comment on above: Performed By: #### U MICRO, ERUR #### [facility] [address] [place] [address] Dr. Krystal Glass Erythrocyte distribution width (RBC) [Ratio] 15.3 % Critically high 11.0-15.0 [facility] Comment on above: Performed By: #### U MICRO, ERUR #### [facility] [address] [place] [address] Dr. Krystal Glass Hematocrit (Bld) [Volume fraction] 34.4 % Critically low 36.0-48.0 [facility] Comment on above: Performed By: #### U MICRO, ERUR #### [facility] [address] [place] [address] Dr. Krystal Glass Hemoglobin (Bld) [Mass/Vol] 10.9 g/dL Critically low 12.0-16.0 [facility] Comment on above: Performed By: #### U MICRO, ERUR #### [facility] [address] [place] [address] Dr. Krystal Glass IG # 0.03 10e3/ul Normal 0.00-0.03 [facility] Comment on above: Performed By: #### U MICRO, ERUR #### [facility] [address] [place] [address] Dr. Krystal Glass IG % 0.3 % Normal 0.0-0.5 [facility] Comment on above: Performed By: #### U MICRO, ERUR #### [facility] [address] [place] [address] Dr. Krystal Glass LYMPH # 1.3 103/ul Normal 1.2-3.8 [facility] Comment on above: Performed By: #### U MICRO, ERUR #### [facility] [address] [place] [address] Dr. Krystal Glass Lymphocytes/100 WBC (Bld) 11.0 % Critically low 20.5-60.0 [facility] Comment on above: Performed By: #### U MICRO, ERUR #### [facility] [address] [place] [address] Dr. Krystal Glass MANUAL DIFF REQ NO Normal [facility] Comment on above: Performed By: #### U MICRO, ERUR #### [facility] [address] [place] [address] Dr. Krystal Glass MCH (RBC) [Entitic mass] 30.8 pg Normal 26.7-34.0 [facility] Comment on above: Performed By: #### U MICRO, ERUR #### [facility] [address] [place] [address] Dr. Krystal Glass MCHC (RBC) [Mass/Vol] 31.7 g/dL Normal 29.9-35.2 [facility] Comment on above: Performed By: #### U MICRO, ERUR #### [facility] [address] [place] [address] Dr. Krystal Glass MCV (RBC) [Entitic vol] 97.2 fL Normal 81.0-99.0 [facility] Comment on above: Performed By: #### U MICRO, ERUR #### [facility] [address] [place] [address] Dr. Krystal Glass MONO # 0.7 103/ul Normal 0.3-0.8 [facility] Comment on above: Performed By: #### U MICRO, ERUR #### [facility] [address] [place] [address] Dr. Krystal Glass Monocytes/100 WBC (Bld) 5.6 % Normal 1.7-12.0 [facility] Comment on above: Performed By: #### U MICRO, ERUR #### [facility] [address] [place] [address] Dr. Krystal Glass NEUT # 9.5 103/ul Critically high 1.4-6.5 [facility] Comment on above: Performed By: #### U MICRO, ERUR #### [facility] [address] [place] [address] Dr. Krystal Glass Neutrophils/100 WBC (Bld) 81.7 % Critically high 43.0-75.0 [facility] Comment on above: Performed By: #### U MICRO, ERUR #### [facility] [address] [address] [address] Krystal Glass Platelet mean volume (Bld) [Entitic vol] 9.7 fL Normal 9.5-13.5 [facility] Comment on above: Performed By: #### U MICRO, ERUR #### [facility] [address] [address] [address] Krystal Glass PLT 312 103/ul Normal 150-450 [facility] Comment on above: Performed By: #### U MICRO, ERUR #### [facility] [address] [address] [address] Krystal Glass RBC 3.54 106/ul Critically low 4.20-5.40 [facility] Comment on above: Performed By: #### U MICRO, ERUR #### [facility] [address] [address] [address] Krystal Glass WBC 11.7 103/ul Critically high 4.0-11.0 [place] Comment on above: Performed By: #### U MICRO, ERUR #### [facility] [address] [address] [address] Krystal Glass ER URINE PROFILEon 2 Bilirubin Ql (U) Negative Normal NEGATIVE The [facility] Comment on above: Performed By: #### U MICRO, ERUR #### [facility] [address] [place] [address] Dr. Krystal Glass Clarity (U) CLOUDY Abnormal CLEAR [facility] Comment on above: Performed By: #### U MICRO, ERUR #### [facility] [address] [address] [address] Krystal Glass Color (U) YELLOW Normal YELLOW [facility] Comment on above: Performed By: #### U MICRO, ERUR #### [facility] [address] [place] [address] Dr. Krystal ROSARIO A micrscopic examination will be performed if indicated. Normal [facility] Comment on above: Performed By: #### U MICRO, ERUR #### [facility] [address] [address] [address] Krystal Glass Glucose Ql (U) Negative Normal NEGATIVE [facility] Comment on above: Performed By: #### U MICRO, ERUR #### [facility] [address] [address] [address] Krystal Glass Hemoglobin Ql (U) TRACE Abnormal NEGATIVE [facility] Comment on above: Performed By: #### U MICRO, ERUR #### [facility] [address] [place] [address] Dr. Krystal Glass Ketones Ql (U) Negative Normal NEGATIVE [facility] Comment on above: Performed By: #### U MICRO, ERUR #### [facility] [address] [place] [address] Dr. Krystal Glass LEUKOCYTES MODERATE Abnormal NEGATIVE [facility] Comment on above: Performed By: #### U MICRO, ERUR #### [facility] [address] [place] [address] Dr. Krystal Glass Nitrite Ql (U) Positive Abnormal NEGATIVE [facility] Comment on above: Performed By: #### U MICRO, ERUR #### [facility] [address] [place] [address] Dr. Krystal Glass pH (U) 7.0 [pH] Normal 5-9 [facility] Comment on above: Performed By: #### U MICRO, ERUR #### [facility] [address] [place] [address] Dr. Krystal Glass SPEC GRAVITY 1.010 Normal 1.005-<=1.025 [facility] Comment on above: Performed By: #### U MICRO, ERUR #### [facility] [address] [place] [address] Dr. Krystal Glass UA PROTEIN Negative Normal NEGATIVE/ TRACE [facility] Comment on above: Performed By: #### U MICRO, ERUR #### [facility] [address] [place] [address] Dr. Krystal Glass UR MICRO IND INDICATED Normal [facility] Comment on above: Performed By: #### U MICRO, ERUR #### [facility] [address] [place] [address] Dr. Krystal Glass Urobilinogen Qn (U) 0.2 {Daily'U}/dL Normal 0.2 - 1. 0 [facility] Comment on above: Performed By: #### U MICRO, ERUR #### [facility] [address] [place] [address] Dr. Krystal Glass LIPASEon 02-04-2022 Lipase [Catalytic activity/Vol] 90.0 U/L Normal 73.0-393.0 [facility] Comment on above: Performed By: #### C BC #### [facility] [address] [place] [address] Dr. Krystal Glass PROF 14(COMP METB)on 022 Albumin [Mass/Vol] 2.8 g/dL Critically low 3.4-5.0 [facility] Comment on above: Performed By: #### C BC #### [facility] [address] [place] [address] Dr. Krystal Glass Albumin/Globulin [Mass ratio] 0.8 {ratio} Normal [facility] Comment on above: Performed By: #### C BC #### [facility] [address] [place] [address] Dr. Krystal Glass ALP [Catalytic activity/Vol] 106 U/L Normal 46-116 [facility] Comment on above: Performed By: #### C BC #### [facility] [address] [place] [address] Dr. Krystal Glass ALT [Catalytic activity/Vol] 21 U/L Normal 14-59 [facility] Comment on above: Performed By: #### C BC #### [facility] [address] [place] [address] Dr. Krystal Glass Anion gap [Moles/Vol] 14.2 mmol/L Normal [facility] Comment on above: Performed By: #### C BC #### [facility] [address] [place] [address] Dr. Krystal Glass AST [Catalytic activity/Vol] 16 U/L Normal 15-37 [facility] Comment on above: Performed By: #### C BC #### [facility] [address] [place] [address] Dr. Krystal Glass Bilirubin [Mass/Vol] 0.9 mg/dL Normal 0.2-1.0 [facility] Comment on above: Performed By: #### C BC #### [facility] [address] [place] [address] Dr. Krystal Glass Calcium [Mass/Vol] 9.2 mg/dL Normal 8.5-10.1 [facility] Comment on above: Performed By: #### C BC #### [facility] [address] [place] [address] Dr. Krystal Glass Chloride [Moles/Vol] 103 mmol/L Normal 98-107 [facility] Comment on above: Performed By: #### C BC #### [facility] [address] [place] [address] Dr. Krystal Glass CO2 [Moles/Vol] 26.4 mmol/L Normal 21.0-32.0 [place] Comment on above: Performed By: #### C BC #### [facility] [address] [place] [address] Dr. Krystal Glass Creatinine [Mass/Vol] 0.72 mg/dL Normal 0.55-1.02 [facility] Comment on above: Performed By: #### C BC #### [facility] [address] [place] [address] Dr. Krystal Glass EGFR-AF MEXICAN >60 Normal >=[address] [facility] Comment on above: Performed By: #### C BC #### [facility] [address] [place] [address] Dr. Krystal Glass EGFR-NON AF MEXICAN >60 Normal >=60 [facility] Comment on above: Performed By: #### C BC #### [facility] [address] [place] [address] Dr. Krystal Glass Globulin (S) [Mass/Vol] 3.6 g/dL Normal [facility] Comment on above: Performed By: #### C BC #### [facility] [address] [place] [address] Dr. Krystal Glass Glucose [Mass/Vol] 181 mg/dL Critically high 74-106 [facility] Comment on above: Performed By: #### C BC #### [facility] [address] [place] [address] Dr. Krystal Glass Potassium [Moles/Vol] 3.6 mmol/L Normal 3.5-5.1 [facility] Comment on above: Performed By: #### C BC #### [facility] [address] [place] [address] Dr. Krystal Glass Protein [Mass/Vol] 6.4 g/dL Normal 6.4-8.2 [facility] Comment on above: Performed By: #### C BC #### [facility] [address] [place] [address] Dr. Krystal Glass Sodium [Moles/Vol] 140 mmol/L Normal 136-145 [facility] Comment on above: Performed By: #### C BC #### [facility] [address] [place] [address] Dr. Krystal Glass Urea nitrogen [Mass/Vol] 16.0 mg/dL Normal 7.0-18.0 [facility] Comment on above: Performed By: #### C BC #### [facility] [address] [place] [address] Dr. Krystal Glass Urea nitrogen/Creatinine [Mass ratio] 22.2 mg/mg Normal [facility] Comment on above: Performed By: #### C BC #### [facility] [address] [place] [address] Dr. Krystal Glass URINE MICROSCOPIC ONLYon BACTERIA SMALL Abnormal NONE SEEN [facility] Comment on above: Performed By: #### U MICRO, ERUR #### [facility] [address] [place] [address] Dr. Krystal Glass Bacteria identified Cx Nom (U) INDICATED Normal [facility] Comment on above: Performed By: #### U MICRO, ERUR #### [facility] [address] [place] [address] Dr. Krystal Glass CAST NONE SEEN Normal NONE SEEN [facility] Comment on above: Performed By: #### U MICRO, ERUR #### [facility] [address] [place] [address] Dr. Krystal Glass Crystals LM Nom (Urine sed) NONE SEEN Normal NONE SEEN [facility] Comment on above: Performed By: #### U MICRO, ERUR #### [facility] [address] [place] [address] Dr. Krystal Glass Epithelial cells LM Ql (Urine sed) RARE Normal NONE SEEN /RARE [facility] Comment on above: Performed By: #### U MICRO, ERUR #### [facility] [address] [address] [address] Krystal Glass MUCOUS NONE SEEN Normal NONE SEEN [facility] Comment on above: Performed By: #### U MICRO, ERUR #### [facility] [address] [address] [address] Krystal Glass RBC 5-10 Abnormal 0-2 [facility] Comment on above: Performed By: #### U MICRO, ERUR #### [facility] [address] [address] [address] Krystal Glass WBC 20-50 Abnormal NONE SEEN [facility] Comment on above: Performed By: #### U MICRO, ERUR #### [facility] [address] [address] [address] Krystal Glass [facility] Recordson 01-31 [facility] [id number] #[id number] Normal [facility] Ambulatory Visit Summaryon 0 01-30-2022 Ambulatory Visit Summary TORIBIO BETTS :1935 Visit Date:01/30/2022 Ambulatory Visit Instructions Your Care Team Attending Physician - RINA BHATIA PA-C Primary Care Physician - RYAN MAYERS, Janna Bhagat This Is Your Medications List acetaminophen (acetaminophen 325 mg oral tablet, chewable) apixaban (Eliquis 2.5 mg oral tablet) atorvastatin (atorvastatin 40 mg Tab) bisacodyl (bisacodyl 10 mg Supp) calcium-vitamin D (calcium-vitamin D 600 mg-400 intl units oral tablet) clopidogrel (Plavix 75 mg Tab) docusate (docusate sodium) furosemide (Lasix 20 mg Tab) isosorbide dinitrate (isosorbide dinitrate 30 mg oral tablet) magnesium oxide (magnesium oxide 250 mg oral tablet) metoprolol (Metoprolol tartrate 25 mg Tab) multivitamin with minerals (Daily Multi) multivitamin with minerals (PreserVision) omeprazole (omeprazole 20 mg Cap-DR) ondansetron (ondansetron 4 mg Tab) sertraline (Zoloft 25 mg Tab) Procedures Performed Cardiac catheterization (10/2018), Breast biopsy sample. Discharge Vitals Heart Rate (Peripheral) 61 Respiratory Rate 16 Blood Pressure 108/50 What to do next Scheduled Follow-Up Appointments Friday 11:00 AM EDT With: RYAN MAYERS, Janna Bhagat Where: [facility] Normal [address] [place] [address] [place] [address]- \.br\ Medications\.br \ What How Much When Why Instructions\.b r\ Unchanged acetaminophen (acetaminophen 325 mg oral tablet, chewable) By Mouth Every 6 hours\.br\ Unchanged apixaban (Eliquis 2.5 mg oral tablet) 1 Tablets By Mouth 2 times a day\.br\ Unchanged atorvastatin (atorvastatin 40 mg Tab) 1 Tablets By Mouth At bedtime\.br\ Unchanged bisacodyl (bisacodyl 10 mg Supp) 1 Suppositories By rectum Every day as needed for for constipation\.b r\ Unchanged calcium-vitamin D (calcium-vitami n D 600 mg-400 intl units oral tablet) 1 Tablets By Mouth Every day\.br\ Unchanged clopidogrel (Plavix 75 mg Tab) 1 Tablets By Mouth Every day\.br\ Unchanged docusate (docusate sodium)\.br\ Unchanged furosemide (Lasix 20 mg Tab) 1 Tablets By Mouth Every day\.br\ Unchanged isosorbide dinitrate (isosorbide dinitrate 30 mg oral tablet) 1 Tablets By Mouth 2 times a day qAM and qPM \.br\ Unchanged magnesium oxide (magnesium oxide 250 mg oral tablet) 1 Tablets By Mouth 2 times a day\.br\ Unchanged metoprolol (Metoprolol tartrate 25 mg Tab) 1 Tablets By Mouth 2 times a day\.br\ Unchanged multivitamin with minerals (Daily Multi) 1 Tablets By Mouth Every day\.br\ Unchanged multivitamin with minerals (PreserVision) By Mouth Every day 1 tablet \.br\ Unchanged omeprazole (omeprazole 20 mg Cap-DR) 1 Capsules By Mouth Every day Gastritis\.br\ Unchanged ondansetron (ondansetron 4 mg Tab) By Mouth Every 8 hours\.br\ Unchanged sertraline (Zoloft 25 mg Tab) 1 Tablets By Mouth Every day Mild recurrent major depression in the evening \.br\ Allergies\.br\ No Known Allergies\.br\ Problems\.br\ Ongoing - Any problem that you are currently receiving treatment for.\.br\ Age-related macular degeneration, wet, both eyes\.br\ Bradycardia\.br \ CAD (coronary artery disease)\.br\ Chronic constipation\.b r\ Chronic diastolic heart failure\.br\ Daytime hypersomnolence \.br\ Fall at home\.br\ Fatigue\.br\ Gastritis\.br\ History of CVA in adulthood\.br\ History of TIAs\.br\ HLD (hyperlipidemia )\.br\ HTN (hypertension)\ .br\ Hypokalemia\.br \ Insomnia\.br\ Mild recurrent major depression\.br\ Mitral regurgitation\. br\ Non-sustained ventricular tachycardia\.br \ Osteopenia\.br\ Paroxysmal A-fib\.br\ Pulmonary hypertension\.b r\ Type 2 diabetes mellitus\.br\ Ventricular bigeminy\.br\ Historical - Any problem that you are no longer receiving treatment for.\.br\ Hypercholestere darcy\.br\ \.br\ [facility] Patient Educationon 01-31-20 Patient Education Obstetrics and Gynecology Acute Urinary Retention, Female Acute urinary retention is a condition in which a person is unable to pass urine. This can last for a short time or for a long time. If left untreated, it can result in kidney damage or other serious complications. What are the causes? This condition may be caused by: ? Obstruction or narrowing of the tube that drains the bladder (urethra). This may be caused by surgery or problems with nearby organs, which can press or squeeze the urethra. ? Problems with the nerves in the bladder. These can be caused by diseases, such as multiple sclerosis, or by spinal cord injuries. ? Certain medicines. ? Tumors in the area of the pelvis, bladder, or urethra. ? Degenerative cognitive conditions such as delirium or dementia. ? Diabetes. ? Vaginal childbirth. ? Bladder or urinary tract infection. ? Constipation. ? Blood in the urine (hematuria). ? Injury to the bladder or urethra. ? Psychological (psychogenic) conditions. Someone may hold her urine due to trauma or because she does not want to use the bathroom. What are the signs or symptoms? Symptoms of this condition include: ? Trouble urinating. ? Pain in the lower abdomen. How is this diagnosed? This condition is diagnosed based on a physical exam and a medical history. You may also have other tests, including: ? An ultrasound of the bladder or kidneys or both. ? Blood tests. ? A urine analysis. ? Additional tests may be needed such as an MRI, kidney, or bladder function tests. How is this treated? Treatment for this condition may include: ? Medicines. ? Placing a thin, sterile tube (catheter) into the bladder to drain urine out of the body. This is called an indwelling urinary catheter. After being inserted, the catheter is held in place with a small balloon that is filled with sterile water. Urine drains from the catheter into a collection bag outside of the body. ? Behavioral therapy. ? Treatment for any underlying conditions. ? If needed, you may be treated in the hospital for kidney function problems or to manage other complications. Follow these instructions at home: ? Take [id number] and prescription medicines only as told by your health care provider. Avoid certain medicines, such as decongestants, antihistamines, and some prescription medicines. Do not take any medicine unless your health care provider has approved. ? If you were given an indwelling urinary catheter, take care of it as told by your health care provider. ? Drink enough fluid to keep your urine clear or pale yellow. ? If you were prescribed an antibiotic, take it as told by your health care provider. Do not stop taking the antibiotic even if you start to feel better. ? Do not use any products that contain nicotine or tobacco, such as cigarettes and e-cigarettes. If you need help quitting, ask your health care provider. ? Monitor any changes in your symptoms. Tell your health care provider about any changes. ? If instructed, monitor your blood pressure at home. Report changes as told by your health care provider. ? Keep all follow-up visits as told by your health care provider. This is important. Contact a health care provider if: ? You have uncomfortable bladder contractions that you cannot control (spasms) or you leak urine with the spasms. Get help right away if: ? You have chills or fever. ? You have blood in your urine. ? You have a catheter and: ? Your catheter stops draining urine. ? Your catheter falls out. Summary ? Acute urinary retention is a condition in which a person is unable to pass urine. If left untreated, it can result in kidney damage or other serious complications. ? This condition may be caused by surgery or problems with nearby organs, which can press or squeeze the urethra. ? Treatment may include medicines and placement of an indwelling urinary catheter. ? Monitor any changes in your symptoms. Tell your health care provider about any changes. This information is not intended to replace advice given to you by your health care provider. Make sure you discuss any questions you have with your health care provider. Document Released: 07/20/2007 Document Revised: 07/03/2018 Document Reviewed: 08/22/2017 [employer] Patient Education ? 2019 [employer]. Normal [facility] Urology Office/Clinic Noteon 01-30-2022 Urology Office/Clinic Note Chief Complaint New patient urinary retention HPI Staff Toribio is here today as a new patient for urinary retention. Pt currently has cath. Pt son is in the room and shares they want the cath removed if possible. Pt fell on bro R femur, had surgery. Cath was placed for a few days. They tried removing it but it was replaced due to retention and has been in ever since, has not been changed, pt son did state she is not very mobile yet but is able to get to toilet for BMs w assistance. Prior to this fall she was living independently and denies major urinary complaints. has never had retention before. Dysuria: _denies Cath is Painful while sitting up but when laying down the pain goes away. Hematuria: _Denies Leaking: _Denies any leaking around the cortes Abdominal pain: _Denies Flank pain: _Denies History of Present Illness staff HPI adjusted. Review of Systems no fever, chills, malaise, myalgia. no rash/lesions. no chest pain, palpitations, or SOB. no abdominal pain, nausea, vomiting. no unilateral calf swelling, redness, pain Physical Exam Vitals & Measurements HR: 61(Peripheral) RR: 16 BP: 108/50 General: nontoxic, NAD Mouth: moist mucosa Lungs: normal respiratory effort Cardio: regular rate, good distal perfusion Abdomen: nondistended, no suprapubic distention or tenderness, no CVA tenderness Neurologic: Grossly normal Skin: No rashes or suspicious lesions Assessment/Plan 1. Urinary retention (R33.9: Retention of urine, unspecified) instructed [facility] to remove cortes today. monitor I&O. perform 3 PVR, call if >300ml or straight cath if overnight. call office w results in morning and further instructions from there. if doing well, may get a few more PVRs over the next week to be sure she continues to empty completely. if not emptying, will try to manage with [facility] for a while instead of replacing the cortes since its so uncomfortable. will f/u w pt in 6-8 weeks in office to recheck. Ordered: E&M of New Patient Low 30-44 Min [id number] Follow-up No qualifying data available Patient Education Acute Urinary Retention, Female Problem List/Past Medical History Ongoing Age-related macular degeneration, wet, both eyes Bradycardia CAD (coronary artery disease) Chronic constipation Chronic diastolic heart failure Daytime hypersomnolence Fall at home Fatigue Gastritis History of CVA in adulthood History of TIAs HLD (hyperlipidemia) HTN (hypertension) Hypokalemia Insomnia Mild recurrent major depression Mitral regurgitation Non-sustained ventricular tachycardia Osteopenia Paroxysmal A-fib Pulmonary hypertension Type 2 diabetes mellitus Urinary retention Ventricular bigeminy Historical Hypercholesteremia Procedure/Surgical History Cardiac catheterization (10/2018), Breast biopsy sample. Medications acetaminophen 325 mg oral tablet, chewable, Oral, q6hr atorvastatin 40 mg Tab, 40 mg= 1 tab(s), Oral, Bedtime, 1 refills bisacodyl 10 mg Supp, 10 mg= 1 supp, Rectal, Daily, PRN calcium-vitamin D 600 mg-400 intl units oral tablet, 1 tab(s), Oral, Daily Daily Multi, 1 tab(s), Oral, Daily docusate sodium Eliquis 2.5 mg oral tablet, 2.5 mg= 1 tab(s), Oral, BID, 1 refills isosorbide dinitrate 30 mg oral tablet, 30 mg= 1 tab(s), Oral, BID Lasix 20 mg Tab, 20 mg= 1 tab(s), Oral, Daily, 1 refills magnesium oxide 250 mg oral tablet, 250 mg= 1 tab(s), Oral, BID, 3 refills Metoprolol tartrate 25 mg Tab, 25 mg= 1 tab(s), Oral, BID, 3 refills omeprazole 20 mg Cap-DR, 20 mg= 1 cap(s), Oral, Daily, 1 refills ondansetron 4 mg Tab, Oral, q8hr Plavix 75 mg Tab, 75 mg= 1 tab(s), Oral, Daily, 3 refills PreserVision, Oral, Daily Zoloft 25 mg Tab, 25 mg= 1 tab(s), Oral, Daily, 3 refills Allergies No Known Allergies Social History Alcohol - Denies Alcohol Use, 06/11/2018 Current, 06/14/2018 Current, Beer, 3-5 times per week, 05/19/2016 Substance Abuse - Denies Substance Abuse, 03/30/2015 Tobacco - Denies Tobacco Use, 02/16/2019 Never (less than 100 in lifetime) Tobacco Use:. Never Smokeless Tobacco Use:., 01/30/2022 Family History Crohn's disease: Mother. Diabetes mellitus type 2: Father. Immunizations Vaccine Date Status Comments diphtheria/pertussis , acel/tetanus adult 12/31/2021 Given Early/Late Reason: Nursing Judgment influenza virus vaccine, inactivated 06/27/2021 Given SARS-CoV-2 (COVID-19) mRNA-1273 vaccine 09/12/2020 Recorded [facility] SARS-CoV-2 (COVID-19) mRNA-1273 vaccine 08/14/2020 Recorded [facility] influenza virus vaccine, inactivated 05/19/2020 Given influenza virus vaccine, inactivated 05/26/2019 Given influenza virus vaccine, inactivated 05/06/2018 Recorded pneumococcal 13-valent vaccine 07/12/2016 Recorded pneumococcal 23-valent vaccine 08/06/1999 Recorded Normal [facility] Comment on above: Result Comment: Elec tronically Signed By: SRIRAM BENOIT, RINA Mcdowell\.br\Date and Time Signed: 01/30/22 13:43 EDT Telephone Encounteron 2021 District Manager [employer] Authentication Interface Message Text Patient's son calling to ask if Dr Sher is able to assist with coordinating with an ortho trauma surgeon at [facility] in [place] which is much closer to where she is in SNF, 1 [place]/2 hr from [place] Please advise. Thank you! Normal [facility] BASIC METABOLIC PANELon 06-0 Anion gap [Moles/Vol] 12 mmol/L Normal 10-20 [facility] Comment on above: Performed By: #### [id number] #### NURSING GLUCOSE [facility] [address] [place] [address], [id number] Calcium [Mass/Vol] 8.2 mg/dL Low 8.4-10.4 [facility] Comment on above: Performed By: #### [id number] #### NURSING GLUCOSE PROGRAM [address] [place], [address] Chloride [Moles/Vol] 98 mmol/L Normal 97-111 [facility] Comment on above: Performed By: #### [id number] #### NURSING GLUCOSE PROGRAM [address] [place], [address] CO2 [Moles/Vol] 27 mmol/L Normal 21-30 [facility] Comment on above: Performed By: #### 8 2948 #### NURSING GLUCOSE PROGRAM [address] [place], [address] Creatinine [Mass/Vol] 0.55 mg/dL Normal 0.50-1.10 [facility] Comment on above: Performed By: #### 8 2948 #### NURSING GLUCOSE PROGRAM [address] [place], [address] ESTIMATED GFR (CKD-EPI) 89 mL/min/1.73sqm Normal >=60 [facility] Comment on above: Result Comment: 2020 CKD EPI Equation using Creatinine without Race Comment: Estimated glomerular filtration rate (eGFR) is calculated without a race coefficient. Values should be interpreted in the context of the patient's full clinical presentation. Reference: 1. Paulino C, Tyron M, Dasha MCHUGH, et al.. A Unifying Approach for GFR Estimation: Recommendations of the NKF-ASN Task Force on Reassessing the Inclusion of Race in Diagnosing Kidney Disease. Swiss Journal of Kidney Diseases 2021;79(2):268-88.e1. 2. N Engl J Med 1 Vol. 385 Issue 19 Pages 9644-6467 Performed By: #### 8 2948 #### NURSING GLUCOSE PROGRAM [address] [place], [address] Glucose [Mass/Vol] 226 mg/dL High 80-116 [facility] Comment on above: Performed By: #### 8 2948 #### NURSING GLUCOSE PROGRAM [address] [place], [address] Potassium [Moles/Vol] 3.5 mmol/L Normal 3.3-5.3 [facility] Comment on above: Performed By: #### 8 2948 #### NURSING GLUCOSE PROGRAM [address] [place], [address] Sodium [Moles/Vol] 133 mmol/L Low 135-148 [facility] Comment on above: Performed By: #### 8 2948 #### NURSING GLUCOSE PROGRAM [address] [place], [address] Urea nitrogen [Mass/Vol] 13 mg/dL Normal 8-22 [facility] Comment on above: Performed By: #### 8 2948 #### NURSING GLUCOSE PROGRAM [address] [place], [address] Basic metabolic 2000 panelon 01-09-2022 Anion gap [Moles/Vol] 12 mmol/L Met [facility] Calcium [Mass/Vol] 8.2 mg/dL Low 8.4 - 10. 4 mg/dL [facility] Chloride [Moles/Vol] 98 mmol/L 97 - 111 mmol/L [facility] CO2 [Moles/Vol] 27 mmol/L 21 - 30 mmol/L [facility] Creatinine [Mass/Vol] 0.55 mg/dL 0.50 - 1.10 mg/dL [facility] GFR/1.73 sq M.predicted MDRD (S/P/Bld) [Vol rate/Area] 89 mL/min/{1.73_m2} >=60 mL/min/1.73sqm [facility] Comment on above: 2020 CKD EPI Equatio n using Creatinine without Race Comment: Estimated glomerular filtration rate (eGFR) is calculated without a race coefficient. Values should be interpreted in the context of the patient's full clinical presentation. Reference: 1. Paulino C, Tyron M, Dasha MCHUGH, et al.. A Unifying Approach for GFR Estimation: Recommendations of the NKF-ASN Task Force on Reassessing the Inclusion of Race in Diagnosing Kidney Disease. Swiss Journal of Kidney Diseases 202;79(2):268-88.e1. 2. N Engl J Med 2020 Vol. 385 Issue 19 Pages 4338-5353 Glucose [Mass/Vol] 226 mg/dL High 80 - 116 mg/dL [facility] Interpretation and review of laboratory results Abnormal [facility] Potassium [Moles/Vol] 3.5 mmol/L 3.3 - 5.3 mmol/L [facility] Sodium [Moles/Vol] 133 mmol/L Low 135 - 148 mmol/L [facility] Urea nitrogen [Mass/Vol] 13 mg/dL 8 - 22 mg/dL [facility] CBC panel Auto (Bld)Ordered By: Jermaine Cardona on 01-09-2022 Erythrocyte distribution width (RBC) [Ratio] 14.1 % 11.5 - 14.5 % [facility] Hematocrit (Bld) [Volume fraction] 23.4 % Low 36.0 - 46.0 % [facility] Hemoglobin (Bld) [Mass/Vol] 8.0 g/dL Low 12.0 - 15.0 g/dL [facility] Interpretation and review of laboratory results Abnormal [facility] MCH (RBC) [Entitic mass] 29.6 pg 26.0 - 34.0 pg [facility] MCHC (RBC) [Mass/Vol] 34.3 g/dL 32.0 - 35.9 g/dL [facility] MCV (RBC) [Entitic vol] 86 fL 80 - 100 fL [facility] Platelet mean volume (Bld) [Entitic vol] 8.3 fL 7.5 - 11.2 fL [facility] Platelets (Bld) [#/Vol] 251 10*3/uL 150 - 400 K/uL [facility] RBC (Bld) [#/Vol] 2.72 10*6/uL Low [facility] WBC (Bld) [#/Vol] 12.6 10*3/uL High 4.5 - 11.5 K/uL [facility] COMPLETE BLOOD COUNTon 01-09 Erythrocyte distribution width (RBC) [Ratio] 14.1 % Normal 11.5-14.5 [facility] Comment on above: Performed By: #### 8 6598 #### NURSING GLUCOSE PROGRAM [address] [place], [address] Hematocrit (Bld) [Volume fraction] 23.4 % Low 36.0-46.0 [facility] Comment on above: Performed By: #### 8 2941 #### NURSING GLUCOSE PROGRAM [address] [place], [address] Hemoglobin (Bld) [Mass/Vol] 8.0 g/dL Low 12.0-15.0 [facility] Comment on above: Performed By: #### 8 2948 #### NURSING GLUCOSE PROGRAM [address] [place], [address] MCH (RBC) [Entitic mass] 29.6 pg Normal 26.0-34.0 [facility] Comment on above: Performed By: #### 8 2948 #### NURSING GLUCOSE PROGRAM [address] [place], [address] MCHC (RBC) [Mass/Vol] 34.3 g/dL Normal 32.0-35.9 [facility] Comment on above: Performed By: #### 8 2948 #### NURSING GLUCOSE PROGRAM [address] [place], [address] MCV (RBC) [Entitic vol] 86 fL Normal 80-100 [facility] Comment on above: Performed By: #### 8 2948 #### NURSING GLUCOSE PROGRAM [address] [place], [address] Platelet mean volume (Bld) [Entitic vol] 8.3 fL Normal 7.5-11.2 [facility] Comment on above: Performed By: #### 8 2948 #### NURSING GLUCOSE PROGRAM [address] [place], [address] Platelets (Bld) [#/Vol] 251 10*3/uL Normal 150-400 [facility] Comment on above: Performed By: #### 8 2948 #### NURSING GLUCOSE PROGRAM [address] [place], [address] RBC (Bld) [#/Vol] 2.72 10*6/uL Low 4.00-5.20 [email or web address] Comment on above: Performed By: #### 8 2948 #### NURSING GLUCOSE PROGRAM [address] [place], [address] WBC (Bld) [#/Vol] 12.6 10*3/uL High 4.5-11.5 [facility] Comment on above: Performed By: #### 8 2948 #### NURSING GLUCOSE PROGRAM [address] [place], [address] Care Plan Noteon 01-09-2022 District Manager [employer] Authentication Interface Message Text Problem: Routine Care: Goal: Patient care will be managed and maintained throughout hospital stay per unit specific routine care procedure 01/09/20221518 by Chai Garcia RN Outcome: Adequate for Discharge 01/09/2022926 by Chai Garcia RN Outcome: Progressing Problem: Impaired Mobility: Goal: Ability to tolerate increased activity will improve and be maintained 01/09/20221518 by Chai Garcia RN Outcome: Adequate for Discharge 01/09/2022926 by Chai Garcia RN Outcome: Progressing Problem: Activity Intolerance: Goal: Demonstrate progressive return to baseline activity level 01/09/20221518 by Chai Garcia RN Outcome: Adequate for Discharge 01/09/2022926 by Chai Garcia RN Outcome: Progressing Problem: Discharge Planning: Goal: Discharge needs of the adult patient will be met 01/09/20221518 by Chai Garcia RN Outcome: Adequate for Discharge 01/09/2022926 by Chai Garcia RN Outcome: Progressing Pt IV removed, pain meds given for the trip, son aware of transfer via DM, report called to [facility] Normal [facility] District Manager [employer] Authentication Interface Message Text Problem: Routine Care: Goal: Patient care will be managed and maintained throughout hospital stay per unit specific routine care procedure Outcome: Progressing Problem: Impaired Mobility: Goal: Ability to tolerate increased activity will improve and be maintained Outcome: Progressing Problem: Anxiety: Goal: Level of anxiety will decrease Outcome: Progressing Problem: Safety: Goal: Patient will remain free of falls during hospital stay Outcome: Progressing Problem: Discharge Planning: Goal: Discharge needs of the adult patient will be met Outcome: Progressing Pt pain controlled, confused at times about date, tolerating diet, SNF placement Normal [facility] Coding Summary.on 01-09-2022 Coding Summary. [id number] Gh0bWw+PGhlYWQ+PE1FV RLsJ32upVPwnP8YP7nWS G0DZMYQPEZHDL0CKW6rw RX6BXyjT7MlzaFb LkfwmNSlIB18QLu1AKG7 fDlkSWxywT6aaBSxO4w0 WoXeHG55eM85EAuuIHDy SnL0AhUtaevwhOVj H3kxOhVysPNpMpo+PHRh YmxlIHdpZHRoPScxMDAl XmSvjFjeMQ7kJq5kYNGw LWNvbGxhcHNlOiBj r8vhXZRdHRarBK2buXlo J9VpaDE6RTKxs1v3Eo36 dHI+KUMbGSG5xShbBBla m630NsRbj1jgNIH1 bLDgFOozWEJ9V82be3L7 YBHdTURwFCQ7eUX6sP1d mOioepgrS1QvxDFsKjV9 XXP6vBHtyN1dyDas baoivN0kDzd+N87CRD9D KFPSJI8UUwz0O1WnGsvk dHI+MA99LQNnXT59hJQm gSIqb6lxxEj9KfQz YYBiYGT1hAeeZJyeh8Fj SKUqL30dtMEiy5H4APPj sEmldDRbGwJphXY0fV8f EMtbquekd0luocwt Nqgcm0fbai98yV41D91o VYxhPIDbLAW3CCJjVNOi uFqezr1zyV9zDb2+IDxj n0rnr4bfxZq7XsOi LEMryfMmlQtqWLQ8y8Vq Mh96C1VuuHava1HxUnq0 di55dXFhm9M7cPT3BXlx LHEurC0dELlmBcH1 GYFqYtGxoL92iULcUNok Ph4okHjawXhzYN4mKYMa obhzHJLfwK0yIEXzzTHy mVkgMP4bGRQmwmwp a407BoDaZBD6AJDgaYLj L3PsdR7pBwMdYUNyXKCd R8QrjLXcVVoxN813GCda CyY6OTAojxSjJ0Kz XWXowDnoNvH7c0N9Fp8P e3NipcjyRNL2CAceHNO3 KtF4SlYaVxZ6B1JcBxz3 YKEvgKjpSU3oC6Ay CPXqgrcpktytyWR2LPWv YDLskA30dVEcHWarBu5i b6R3s178KSIfXFAydM38 Ev8siNtwFXWalBWT dL4hstsdn3lfufdgVzDn XHOxLCw0NHn7EQBddEam DlDeTRO3MiA9HXV9yZTw qH7ycRxltoupkL5k Oyc+Z85qkG3uZSB0XCE8 eqebBHWcljPpDR01CX50 G9JuOzhvgARfsRD+PGRp ksFutNzaJY7xEsLe l2aio2QtACbmV7NcCSPm GHsjDgm4NONwIAF5gIB9 kF5bXOXgNQwyk2W4qNY2 B4KbuuPqoa0gm3um OSZvHIgwY15kwHYvr4F8 FZUrzNY0SMKzgHkhAhSe vM84Vsn+LZUosFamc7Pv Wbmav2zvi0zmuIi6 IjMwJSIgdmFsaWduPSJ0 c6TjGs46O35kXNanZZGi GYMnDHDuBICvbBcelu2h vZ5cDk7+PGNvbCB3 dJW0fJ2mTYNnHfK3WUnh X092CmNrwBDzQvvwq8hx w8euaTb8LhCfEAIbnxPq rGurESK6r5SlZn47 S20uOJsgQGZlOEHmFYSq LDTgwJtnqj6yuP5vNi5+ CG8kr0gbim91xI09bHL+ WQPjIIT1fVqfLCht FQTmwV8rDMnyRdO8HKTi WzCtyM54tBIxLUjlIo8f gTpwqCrhRC0bSVUqxpta n613CoNon0icJOXq eQKrNWrwUZY3E01bf3L6 IAPzRAWwFPR8jOO9vG1l bGlnbjogbGVmdDsgdmVy yDngDNqmHBcmG286 IHRvcDsnPlBhdGllbnQg NdVpLXc6E6PoDdn7CLPv wRfnWT4vzVStWZeyPq5x yJqeiQajEP0yUSTb yxgju165GpFxz8mzYVNz iQJeOWqrWEJ7J40tf2Y4 VBSnAKBrKKB4pNV5hT5r bGlnbjogbGVmdDsg blWduZzvJOeoJVehC644 IHRvcDsnPkJpcnRoIERh cNI3WI01AQ30eFMty4G6 tDR5K2GxKXAsbxpe rfpbwOK2NNWcBEOvsG29 Jm0usLvkGf1aYBWaJNH3 XJZdaWCyM8RhmN9gCmAw RBJoIHFaP3UenXHu FXfmN674ZGcpKlE2MTJa qiTxI6EsISSveOadSkU3 l0X2Tw4PC8T2DA97WI90 iLVbo4U0fLI6B8Jx RGZikzhovfmttBS3VXOc BGFivE76Af3qkTpgOb7c WNEiSRS5ULLjgRDkY2Ou bP2kAtNtMTUtGBTn K9KhlEWqNUljG042LCqk BzN2XFNbmlLuY3WjEWXj rCaxYvU1f7W8Tp9STVt3 JV76PJ95jXEaf9H0 zVC0D3NsTUOhzqjthqqg aDE0CRUuEDTqtM68Yl9y oYfsUv0yUQExZJS3DPUu yFJgI5AhxF1pJdRh IQAuFNRkO7HzmUWoUZzw M819EGdjItM0TLJcpvLf T1EmKZPgkKlpTrP4t6T6 Oo2MIZAqXA89AWE1 jPS4KY36HF14O5FuAuib dGFibGU+PHRhYmxlIHdp ZHRoPScxMDAlJyBzdHls BY7eZq5yCWUiJXKw vZpjnHAbTqNjz9hbRKCv RZyjJQ4goMzvX1IqtTP3 RORel7z1It75G85tE6Rh dXA+PCIjzXZ6gYE9 mG4wSoIeEhB2QVvcS185 KlQhtATsKmbcn1dfi9gt cHi8GbL0JDNmfdPppCmf HHK7n1PjNo21Q59j IHdpZHRoPSIxNSUiIHZh tMxitm1ltQ0cUs7+PGNv dQB4xLH8zT4eKjFkYoF9 THwmY531VrFfqQFw Crmxw3jor8cfuXa9YlCr UZLjitAauXtmQVF0g1Gq Xn83F6UtwIehw2WxReh5 nv81xJUwe6U7bME1 Y8BmMYBfxfbppPBdjYtr BY3cQJWojipmTLFdlM4v JHCyG1c6PuHcXwK0ATpk D7KoacL3ALUksPXx ELllRXS9E71ki7S3NIZf MYJkHFV4aTK2bJ3yjInj bjogbGVmdDsgdmVydGlj MJnjIWieH338TERt fEevXDKgeK7gTPVsxPMk cYjkCR2hREUghqooNoGV QWMeQYEZMJXKQ7wLUGG8 A0QfFdg9XQMcwSgj MP0osEKlCEagKt0fiHps jJbtAV6jTNBgaevoQJZn wE7oWEDskFTntNttDP7s XNUxgbioz476HjVn HVV2JEJbwKDlQ2WwlC8y TmTvLUPfDAAqT3UjdDOz OQhwU999OConJfA5GUMl iiZnU8CgNFVteBmi DwY4u6E0No1bRb8lUP4x UOJ0UK94LP53wZWus9R2 sJF3P5UgUYQjtiwskulr wCL5VRNdZIOspB04 wMVuVDlkAq8ja3E0i639 RTOhXJAfqR29Fv1ahKfw LBHbbRKDeF7gdmcuq4vm cjogIzAwMDAwMDt0 IRq5ARZdhBfyKcEhBTV5 PtM3SSV4zJGhyZ4bmDqg qphdgP3hEiw+ODcgWWVh lfU5J9UqJje3DVDy kQuwZK0ncVKjOXqxTo8x cMgutUpkXF6sJAFgttze JPRrsK7yZNTtcBKzsZuz UQ0bYWEcvzbaf540 IcUpPAE7NBEvqAYoA1Ls iZ9pNuCzOBLzMLMnH6Fx fPRmAEenF417GZdzIbR4 YEVtdyFqK1TaEBCq iVmkSjN0n2Z4Zb3ZTE5w uGU8B6ZcUhu8GIVyrCsc IK5mwXMnLRspAc5djCwp cGufFH7wZNHdkbcb JHVbzI2tGFLltWHctVkr SZ5eBZRnuawmc950JcRa GAG5LBGtqBOqN7EtyI0v EaFzAEPvUAGtT8Cf hGPcEGvvU604XBhfHfU5 IRWndbNrI5CaCXOmxXin UoJ5v0A3Ut8RpGRzM5Vh A0v0N9KpNwrgzBF+ XY48XHRdMI95sCLaaJBc u3fphKx7FfWhQXBzJUH9 gBscXWlgw3DmSPNyL44r xJQuf3S4LWYixCub eYCmRfYabXY5qS3yFSba nnwee6icjtcdMctzv1xr ki55hG84C25jEIbbJKVg PSIzMCUiIHZhbGln ny7vqI9rRt0+PGNvbCB3 jBY7sJ5pMoZgAdB2HIfk D709MsJeaAVqKmryi5hq z6bvcKz5KcSsIVBh lcKekVwpXVK8g8UnHg95 B08nKNqwWPGcOFYwGYJd TWQoqMyggc4huU0zTh4+ XF4zf7eugy46eA49 dHI+YCYbWID7xGadIBgh RWUrbI6bJBrwSzL0GQAw DjYotV47kZNqPJlzAa7t iZzfeEsfRD0uNCRl fhiyl971YqOlc2bmCTTh mHIzKDauENL2W41ap4I9 QOIyHWUyADI7bDD8cN0y bGlnbjogbGVmdDsg azOkaXjsWVsnINvxO481 ANEjwKfeVuVfyIMdI4zf rfVKHT8hIimgsXP+PHRk FCQ8qGbbJAmyFIBv oC3rCJJkU8o0IbLmBnE2 PTdoV6ZvepP2ORJsvYKo EZKxcKLAkL3kbbpev0np cjogIzAwMDAwMDt0 DIw8CUEthAniYdXbZYH4 UvK7CCG4eKKzxA3szIyp ymkjoJ5kWea+RklOOjwv dGQ+YGYiPOP0rCce YBtdZKLjzP9gMKVlZ8e8 KaLwGuG8GJtbH5VltcU3 SYQkoKOdOJFxtYQGgI3r jdrod5ejdwzkKdBw HFZrEKu6FJg0KUYlfCeq IjZbYNB8LbP2JYB8qFMf bJ9nmUrpwxcacK9wIeg+ TVJOOjwvdGQ+PHRk ZZW5rXveLXnxMVVpgH6q ZNByP6i5RlPmIxW4PHwi T1HfnaW1CJCwzZXsUGOu kOQDpL1feurgq8bn lsmzFqPiXRArZAw9ZIs2 DQFdzDhjDqFlBEX7IdM8 IDU7lIIwhJ7rnIricais pC5gLsk+MFZ3MCH3 MD13HB58A0TrWgjguXWg bGU+PHRhYmxlIHdpZHRo SXdnBMHmAjNmyIpbOU1w Pf6gKOStCZUjtEzn cHNl (more content not included)... Normal [facility] Discharge Planning Noteon District Manager [employer] Authentication Interface Message Text CASE MANAGEMENT/SOCIAL WORK SNF DC NOTE: Pt has been cleared for transfer to [facility] on this date Pt will be transferred to [facility] via Yusuf Wilson and Nadia ([id number]) at 3:30 PM Nursing report may be called to [phone] Support person notified: pt and son at bedside Patient/Family, team aware of above and agreeable. For discharge, please ensure the following is completed: ??? MD to place DC order, reconcile meds, and print narcotics to go with patient to SNF ??? [place] to print Discharge Summary, [place], Summary of Care, Narcotic Scripts, and Signature Page and place in a packet to be given to charter coach driver If transport/discharge needs to be adjusted/cancelled, team (MD/RN) to cancel transport, update support person, and update receiving facility. Radha Cox [facility] [phone] Normal [facility] GLUCOSE, FINGERSTICK-IN OFFI CEon 01-09-2022 Glucose [Mass/Vol] 148 mg/dL High 80-116 [email or web address] Comment on above: Performed By: #### A KHRIS #### S PATHOLOGY LABORATORY [address] [place] [address], [phone] Glucose [Mass/Vol] 148 mg/dL High 80 - 116 mg/dL [facility] Interpretation and review of laboratory results Abnormal [facility] Glucose [Mass/Vol] 162 mg/dL High 80-116 [facility] Comment on above: Performed By: #### A KHRIS #### S [facility]AT[facility] [address] [place] [address], [phone] Glucose [Mass/Vol] 162 mg/dL High 80 - 116 mg/dL [facility] Interpretation and review of laboratory results Abnormal [facility] Glucose [Mass/Vol] 156 mg/dL High 80-116 [email or web address] Comment on above: Performed By: #### 8 2948 #### NURSING GLUCOSE PROGRAM [address] [place], [address] Glucose [Mass/Vol] 156 mg/dL High 80 - 116 mg/dL Me [facility] Interpretation and review of laboratory results Abnormal [facility] Laboratory - Blood bankon Major crossmatch [Interp] Compatible (E) [facility] No Panel Informationon 01-09 Blood Product Code [id number] [facility] ealt Blood Product Description Red Blood Cells [facility] Blood Product Unit Type 6200 [facility] Comment on above: A Pos Status Transfused [facility] Progress Noteson 01-09-2022 District Manager [employer] Authentication Interface Message Text Pre-cert remains pending for Brooke this date. SW sent updated clinicals. [id number] initiated in [facility] Transport form on [employer]. SW will continue to follow. Radha Cox [facility] [phone] Normal [facility] [employer] Interface Message Text --------- GENERAL INFORMATION --------- REGULAR NURSING FLOOR - STAFF NOTE Patient seen and examined on 01/09/2022 Patient Name: Toribio Betts Admission Date: 01/01/2022 -------- INTERVAL HISTORY/EVENTS ------ ??? Background: Toribio Betts???is a 86 year old???female???broug ht in by EMS as a transfer from [facility]???following fall from standing on 12/31. She fell and her leg twisted under her. She is on Eliquis. ??? Hospital Course: 12/31/2021: S/p fall, patient was admitted to [facility] 01/01/2022: No acute events overnight 01/02/2022:???Underwen t intramedullary implant for femoral shaft fx with ortho, patient Hb dropped to 6.5 and was transfused???2???u pRBC 01/03/2022: Patient received 2 u pRBC and fainted during therapy 01/05/2022: s/p 2 units of PRBC overnight 01/06/2022: Patient Hgb dropped to 8.7 from 9.9, asymptomatic. 01/07/2022: Started DVT PPX 24-hour Events: No acute events Saturating at 96% on RA UOP: 1,400 cc --------- VITALS AND INPUT/OUTPUT Vital Signs: Vital sign ranges over the past 24 hours (retrieved 01/09/2022 at 7:01 AM): Tmax (24 hours): 98.8 ???F (37.1 ???C) Pulse Av.3 Min: 83 Max: 98 Systolic (24hrs), Av , Min:140 , Max:147 Diastolic (24hrs), Av, Min:52, Max:66 MAP (mmHg) Av.8 mmHg Min: 76 mmHg Max: 84 mmHg Resp Av.7 Min: 16 Max: 18 SpO2 Av.3 % Min: 95 % Max: 96 % 24 Hour Input/Output In: 580 (9.7 mL/kg) [P.O.:580] Out: 1400 (23.5 mL/kg) [Urine:1400 (1 mL/kg/hr)] Net: -820 Weight: 59.5 kg PHYSICAL EXAM General:???NAD, awake/alert HEENT:???NCAT CV:???RRR Pulmonary:???CTAB, unlabored breathing on RA. Abdomen: soft, dis-tended and non-tender, suprapubic distention and tenderness Musculoskeletal:???l eft leg tender, mild +1 pitting edema bilaterally, motor and sensations intact.???Dressing with some saturation. Pitting edema in LE. Neurological: awakes to voice, at baseline LABORATORY RESULTS (LAST 24 HOURS) CBC/PT/INR WBC RBC Hgb Hct MCV RDW Plt PT aPTT INR 01/09/22 0225 12.6 2.72 8.0 23.4 86 14.1 251 Basic Metabolic Panel Na K Cl CO2 Gap Glu BUN Cr Ca Mg PO4 01/09/22224 133 3.5 98 27 12 226 13 0.55 8.2 Arterial Blood Gases None IMAGING RESULTS (PERSONALLY REVIEWED) CXR: None ASSESSMENT AND PLAN Diagnosis s/p???Fall 12/31: recovering as expected from: -???R femoral shaft fractrue - Acute blood loss anemia - Hyponatremia???- resolved ? PMHx: CAD???(s/p PCI on plavix), CHF, HLD, HTN, DM, Afib on Eliquis ??? Incidental Findings:???None ??? Plan: Neurological: - Continue tylenol 650 mg q4h - Continue Oxycodone 5 mg q4h PRN ??? CV: -???Monitor Vitals -???Continue home metoprolol, lasix, atorvastatin -???Hold Isosorbide for now -???Hold Eliquis/plavix -???Echo 01/01 with normal LV function and EF???65% ??? Respiratory: - Saturating well on RA -???Bronchopulmonary Hygiene -???Incentive Spirometer -???Supplemental O2 PRN to target SpO2 92%. ??? GI/Diet: -???Diet: Regular -???Bowel regimen: Colace, Senna, Miralax -???Zofran???4 mg q4h???PRN for nausea -???Continue PPI ??? Renal:??? -???HLIV -???Measure I AND O - M/Th BMP, Mg, Phos. Replace???Mg today???(Maintain K >4, Phos >3, Mg >2) - Cortes placed for retention ??? ID:??? -???No indication for antibiotics at this time. ??? Heme:??? -???Patient was transfused???2???uPR BC for low post-op Hb???01/04/22. H/H stable. Will continue to hold eliquis for now. -M/Th CBC ??? Endocrine:??? -???SSI, unclear if on DM meds at home ??? MSK:??? -???Progressive mobility protocol -???PT/OT??? -???NWB RLE ??? PPx: -???VTE -???SCDs only.???Continue lovenox 30 BID. Anti-xa Prophylactic will transition to .??? -???Stress ulcer???-???Continue home PPI ??? Dispo: -???Medically cleared for discharge to SNF pending precert. Advised this would happen today ??? Follow up: - Ortho (Dr. Sher) 2 weeks -follow up with pcp as well - Urology for cortes removal SCRIBE ATTESTATION 01/09/2022, 7:01 AM. This note is prepared by Daysi Marshall acting as Scribe for Diana Marsh DO. All medical record entries made by the Scribe were at my direction and personally dictated by me. I have reviewed the record and confirm that the note above accurately reflects all work, treatment, procedures, and medical decision making performed by me, DIANA MARSH DO Surgical critical care / trauma / emergency general surgery Personal pager: [phone] Trauma (more content not included)... Normal [facility] RED BLOOD CELL UNIT STATUSon 01-09-2022 Blood product unit Nom (BPU) [ID] [id number] [facility] Blood product unit Nom (BPU) [ID] [id number] [facility] ANTI FXA-LMW HEPARINon 01-08 ANTI FXA-LMW HEPARIN ASSAY 0.42 IU/mL Normal [facility] Comment on above: Order Comment: The r ecommended therapeutic range for treatment of thrombosis with Low Molecular Weight Heparin is 0.5 - 1.0 IU/mLThe recommended range for VTE prophylaxis with Low Molecular Weight Heparin is 0.2 - 0.4 IU/mL. Performed By: #### 8 2948 #### NURSING GLUCOSE PROGRAM [address] [place] [address], [id number] LMW Heparin Chromogenic method Qn (PPP) 0.42 IU/mL [facility] The recommended therapeutic range for treatment of thrombosis with Low Molecular Weight Heparin is 0.5 - 1.0 IU/mL The recommended range for VTE prophylaxis with Low Molecular Weight Heparin is 0.2 - 0.4 IU/mL. [facility] BASIC METABOLIC PANELon Anion gap [Moles/Vol] 13 mmol/L Normal 10-20 [facility] Comment on above: Performed By: #### 8 2948 #### NURSING GLUCOSE PROGRAM [address] [place] [address], [id number] Calcium [Mass/Vol] 8.2 mg/dL Low 8.4-10.4 [facility] Comment on above: Performed By: #### 8 2948 #### NURSING GLUCOSE PROGRAM [address] [place] [address], [address] Chloride [Moles/Vol] 100 mmol/L Normal 97-111 [facility] Comment on above: Performed By: #### 8 2948 #### NURSING GLUCOSE PROGRAM [address] [place], [address] CO2 [Moles/Vol] 27 mmol/L Normal 21-30 [facility] Comment on above: Performed By: #### 8 2948 #### NURSING GLUCOSE PROGRAM [address] [place] [address], [address] Creatinine [Mass/Vol] 0.60 mg/dL Normal 0.50-1.10 [facility] Comment on above: Performed By: #### 8 2948 #### NURSING GLUCOSE PROGRAM [address] [place], [address] ESTIMATED GFR (CKD-EPI) 87 mL/min/1.73sqm Normal >=60 [email or web address] Comment on above: Result Comment: 2020 CKD EPI Equation using Creatinine without Race Comment: Estimated glomerular filtration rate (eGFR) is calculated without a race coefficient. Values should be interpreted in the context of the patient's full clinical presentation. Reference: 1. Paulino C, Tyron M, Dasha MCHUGH, et al.. A Unifying Approach for GFR Estimation: Recommendations of the NKF-ASN Task Force on Reassessing the Inclusion of Race in Diagnosing Kidney Disease. [place] Journal of Kidney Diseases 2021;79(2):268-88.e1. 2. N Engl J Med 1 Vol. 385 Issue 19 Pages 0568-6221 Performed By: #### 8 2948 #### NURSING GLUCOSE PROGRAM [address] [place], [address] Glucose [Mass/Vol] 135 mg/dL High 80-116 [email or web address] Comment on above: Performed By: #### 8 2948 #### NURSING GLUCOSE PROGRAM [address] [place], [address] Potassium [Moles/Vol] 3.8 mmol/L Normal 3.3-5.3 [email or web address] Comment on above: Performed By: #### 8 2948 #### NURSING GLUCOSE PROGRAM [address] [place], [address] Sodium [Moles/Vol] 136 mmol/L Normal 135-148 [email or web address] Comment on above: Performed By: #### 8 2948 #### NURSING GLUCOSE PROGRAM [address] [place], [address] Urea nitrogen [Mass/Vol] 12 mg/dL Normal 8-22 [email or web address] Comment on above: Performed By: #### 8 2948 #### NURSING GLUCOSE PROGRAM [address] [place], [address] Basic metabolic 2000 panelon 01-08-2022 Anion gap [Moles/Vol] 13 mmol/L Met [facility] Calcium [Mass/Vol] 8.2 mg/dL Low 8.4 - 10. 4 mg/dL [facility] Chloride [Moles/Vol] 100 mmol/L 97 - 111 mmol/L [facility] CO2 [Moles/Vol] 27 mmol/L 21 - 30 mmol/L [facility] Creatinine [Mass/Vol] 0.60 mg/dL 0.50 - 1.10 mg/dL [facility] GFR/1.73 sq M.predicted MDRD (S/P/Bld) [Vol rate/Area] 87 mL/min/{1.73_m2} >=60 mL/min/1.73sqm [facility] Comment on above: 2020 CKD EPI Equatio n using Creatinine without Race Comment: Estimated glomerular filtration rate (eGFR) is calculated without a race coefficient. Values should be interpreted in the context of the patient's full clinical presentation. Reference: 1. Paulino C, Tyron M, Dasha DC, et al.. A Unifying Approach for GFR Estimation: Recommendations of the NKF-ASN Task Force on Reassessing the Inclusion of Race in Diagnosing Kidney Disease. Swiss Journal of Kidney Diseases 202;79(2):268-88.e1. 2. N Engl J Med 1 Vol. 385 Issue 19 Pages 5084-2331 Glucose [Mass/Vol] 135 mg/dL High 80 - 116 mg/dL [facility] Interpretation and review of laboratory results Abnormal [facility] Potassium [Moles/Vol] 3.8 mmol/L 3.3 - 5.3 mmol/L [facility] Sodium [Moles/Vol] 136 mmol/L 135 - 148 mmol/L [facility] Urea nitrogen [Mass/Vol] 12 mg/dL 8 - 22 mg/dL [facility] CBC panel Auto (Bld)on 01-08 Erythrocyte distribution width (RBC) [Ratio] 13.7 % 11.5 - 14.5 % [facility] Hematocrit (Bld) [Volume fraction] 23.1 % Low 36.0 - 46.0 % [facility] Hemoglobin (Bld) [Mass/Vol] 8.1 g/dL Low 12.0 - 15.0 g/dL [facility] Interpretation and review of laboratory results Abnormal [facility] MCH (RBC) [Entitic mass] 30.0 pg 26.0 - 34.0 pg [facility] MCHC (RBC) [Mass/Vol] 35.1 g/dL 32.0 - 35.9 g/dL [facility] MCV (RBC) [Entitic vol] 86 fL 80 - 100 fL [facility] Platelet mean volume (Bld) [Entitic vol] 8.2 fL 7.5 - 11.2 fL [facility] Platelets (Bld) [#/Vol] 191 10*3/uL 150 - 400 K/uL [facility] RBC (Bld) [#/Vol] 2.70 10*6/uL Low [facility] WBC (Bld) [#/Vol] 9.2 10*3/uL 4.5 - 11.5 K/uL [facility] COMPLETE BLOOD COUNTon 01-08 Erythrocyte distribution width (RBC) [Ratio] 13.7 % Normal 11.5-14.5 [facility] Comment on above: Performed By: #### C BC ####[facility] PATHOLOGY [id number] [place], [place], Hematocrit (Bld) [Volume fraction] 23.1 % Low 36.0-46.0 [facility] Comment on above: Performed By: #### C BC ####[facility] PATH[facility] [id number] [place], Hemoglobin (Bld) [Mass/Vol] 8.1 g/dL Low 12.0-15.0 [facility] Comment on above: Performed By: #### C BC ####[facility] PATHOLOGY [id number] [place], MCH (RBC) [Entitic mass] 30.0 pg Normal 26.0-34.0 [facility] Comment on above: Performed By: #### C BC ####S PATHOLOGY [id number] [place], MCHC (RBC) [Mass/Vol] 35.1 g/dL Normal 32.0-35.9 [facility] Comment on above: Performed By: #### C BC ####S PATHOLOGY [id number] [place], MCV (RBC) [Entitic vol] 86 fL Normal 80-100 [facility] Comment on above: Performed By: #### C BC ####S PATHOLOGY [id number] [place], Platelet mean volume (Bld) [Entitic vol] 8.2 fL Normal 7.5-11.2 [facility] Comment on above: Performed By: #### C BC ####S PATHOLOGY [id number] [place], Platelets (Bld) [#/Vol] 191 10*3/uL Normal 150-400 [facility] Comment on above: Performed By: #### C BC ####[facility] PATH[facility] [id number] [place], RBC (Bld) [#/Vol] 2.70 10*6/uL Low 4.00-5.20 [facility] Comment on above: Performed By: #### C BC ####[facility] PATHOLOG[facility] [id number] [place], WBC (Bld) [#/Vol] 9.2 10*3/uL Normal 4.5-11.5 [facility] Comment on above: Performed By: #### C BC ####[facility] PATHOLOGY [id number] [place], [place], Care Plan Noteon 01-08-2022 District Manager Major Accounts Sales Authentication Interface Message Text Problem: Routine Care: Goal: Patient care will be managed and maintained throughout hospital stay per unit specific routine care procedure Outcome: Progressing Note: Patient care is being managed per unit protocol Problem: Impaired Mobility: Goal: Ability to tolerate increased activity will improve and be maintained Outcome: Progressing Problem: Activity Intolerance: Goal: Demonstrate progressive return to baseline activity level Outcome: Progressing Problem: VTE Prophylaxis: Goal: Will be free of DVT Outcome: Progressing Problem: Fluid and Electrolyte Imbalance: Goal: Adequate fluid and electrolyte balance will be achieved and maintained Outcome: Progressing Note: Labs drawn as ordered Problem: Anxiety: Goal: Level of anxiety will decrease Outcome: Progressing Problem: Acute Pain: Goal: Ability to identify pain intensity on a pain scale and rate it consistently will be achieved and maintained Outcome: Progressing Note: Numeric pain scale is being managed per unit protocol Problem: Safety: Goal: Patient will remain free of falls during hospital stay Outcome: Progressing Problem: Discharge Planning: Goal: Discharge needs of the adult patient will be met Outcome: Progressing Normal [facility] GLUCOSE, FINGERSTICK-IN OFFI CEon 01-08-2022 Glucose [Mass/Vol] 156 mg/dL High 80-116 [facility] Comment on above: Result Comment: Basilia toribio RN, APN, MD Performed By: #### 8 2948 #### NURSING GLUCOSE PROGRAM [address] [place] [address], [address] Glucose [Mass/Vol] 156 mg/dL High 80 - 116 mg/dL [facility] Comment on above: Notified MARIA FERNANDA ARTEAGA MD Interpretation and review of laboratory results Abnormal [facility] Glucose [Mass/Vol] 149 mg/dL High 80-116 [facility] Comment on above: Performed By: #### 8 2948 #### NURSING GLUCOSE PROGRAM [address] [place], [address] Glucose [Mass/Vol] 149 mg/dL High 80 - 116 mg/dL [facility] Interpretation and review of laboratory results Abnormal [facility] Glucose [Mass/Vol] 180 mg/dL High 80-116 [facility] Comment on above: Performed By: #### 8 2948 #### NURSING GLUCOSE PROGRAM [address] [place], [address] Glucose [Mass/Vol] 180 mg/dL High 80 - 116 mg/dL [facility] Interpretation and review of laboratory results Abnormal [facility] Glucose [Mass/Vol] 145 mg/dL High 80-116 [facility] Comment on above: Performed By: #### 8 2948 #### NURSING GLUCOSE PROGRAM [address] [place], [address] Glucose [Mass/Vol] 145 mg/dL High 80 - 116 mg/dL [facility] Interpretation and review of laboratory results Abnormal [facility] NOVEL CORONAVIRUS (COVID-19) on 01-08-2022 SARS-CoV-2 (COVID-19) RNA KIMBERLY+probe Ql (Unsp spec) Not detected Normal Not Detected [facility] Comment on above: Order Comment: Not D etected results are indicative of the absence of SARS-CoV-2 in the specimen submitted for testing. False negative results are possible based on the timing and quality of specimen submitted for testing.This test is intended for use only under Emergency Use Authorization (EUA). This test was developed, and its performance characteristics determined by [facility] which is certified under CLIA as qualified to perform high complexity clinical laboratory testing. Result Comment: This assay was performed using [employer] GIOVANNI RTPCR technology. Performed By: #### 8 2948 #### NURSING [place] PROGRAM [address] [place], [address] NOVEL CORONAVIRUS (COVID-19) Ordered By: Rishi Solis on 01-08-2022 SARS-CoV-2 (COVID-19) RNA KIMBERLY+probe Ql (Unsp spec) Not detected Not Detected [facility] Comment on above: This assay was perfo rmed using [employer] GIOVANNI RTPCR technology. Progress Noteson 01-08-2022 District Manager Major Accounts Sales Authentication Interface Message Text SOCIAL WORK COVERAGE NOTE Plan: DC to [place] [facility]. Pre-cert pending. Updated therapy notes needed for pre-cert, PT/OT aware. SW to send updated notes to [facility] when available. 11:35a Addendum: Updated clinicals sent to [place]. SNF requires Covid test prior to admission, MD aware and asked to place order. SW to contact pt's POA/son Terry Tim [phone] once DC confirmed and pre-cert has been obtained. Will continue to follow. Jaja Morgan, PAPER CUTTING MACHINE OPERATOR, CHAMPION OF SUSTAINABLE DESIGN Normal [facility] [employer] Interface Message Text --------- GENERAL INFORMATION --------- REGULAR NURSING FLOOR - STAFF NOTE Patient seen and examined on 01/08/2022 Patient Name: Toribio Betts Admission Date: 01/01/2022 -------- INTERVAL HISTORY/EVENTS ------ Background: Toribio Betts???is a 86 year old???female???broug ht in by EMS as a transfer from [facility]???following fall from standing on 12/31. She fell and her leg twisted under her. She is on Eliquis. ??? Hospital Course: 12/31/2021: S/p fall, patient was admitted to [facility] 01/01/2022: No acute events overnight 01/02/2022: Underwent intramedullary implant for femoral shaft fx with ortho, patient Hb dropped to 6.5 and was transfused???2???u pRBC 01/03/2022: Patient received 2 u pRBC and fainted during therapy 01/05/2022: s/p 2 units of PRBC overnight 01/06/2022: Patient Hgb dropped to 8.7 from 9.9, asymptomatic. 01/07/2022: Started DVT PPX 24-hour Events: Urinary retention, no voiding 21:00 hrs minimal amount. This AM, patients abdomen abdomen was dis-tended and was unable to urinate, cortes placed. Patient was accepted to SNF Saturating at 94% on RA UOP: 1,325 cc --------- VITALS AND INPUT/OUTPUT Vital Signs: Vital sign ranges over the past 24 hours (retrieved 01/08/2022 at 6:55 AM): Tmax (24 hours): 99.1 ???F (37.3 ???C) Pulse Av.3 Min: 80 Max: 99 Systolic (24hrs), Av , Min:137 , Max:148 Diastolic (24hrs), Av, Min:43, Max:61 MAP (mmHg) Av.3 mmHg Min: 68 mmHg Max: 81 mmHg Resp Av.5 Min: 16 Max: 18 SpO2 Av.6 % Min: 92 % Max: 94 % 24 Hour Input/Output In: 751.7 (12.6 mL/kg) [P.O.:260; I.V.:491.7 (0.3 mL/kg/hr)] Out: 2024 (34 mL/kg) [Urine:2024 (1.4 mL/kg/hr)] Net: -1273.3 Weight: 59.5 kg PHYSICAL EXAM General:???NAD, awake/alert HEENT:???NCAT CV:???RRR Pulmonary:???CTAB, unlabored breathing on RA. Abdomen: soft, dis-tended and non-tender, suprapubic distention and tenderness Musculoskeletal:???l eft leg tender, mild +1 pitting edema bilaterally, motor and sensations intact. Dressing with some saturation. Pitting edema in LE. Neurological: awakes to voice, at baseline. LABORATORY RESULTS (LAST 24 HOURS) CBC/PT/INR WBC RBC Hgb Hct MCV RDW Plt PT aPTT INR 01/08/22 0422 9.2 2.70 8.1 23.1 86 13.7 191 Basic Metabolic Panel Na K Cl CO2 Gap Glu BUN Cr Ca Mg PO4 01/08/22 0422 136 3.8 100 27 13 135 12 0.60 8.2 Arterial Blood Gases None IMAGING RESULTS (PERSONALLY REVIEWED) CXR: None ASSESSMENT AND PLAN ??? Diagnosis s/p???Fall 12/31: recovering as expected from: -???R femoral shaft fractrue - Acute blood loss anemia - Hyponatremia - resolved ? PMHx: CAD (s/p PCI on plavix), CHF, HLD, HTN, DM, Afib on Eliquis ??? Incidental Findings:???None ??? Plan: Neurological: - Continue tylenol 650 mg q4h - Continue Oxycodone 5 mg q4h PRN ??? CV: -???Monitor Vitals -???Continue home metoprolol, lasix, atorvastatin -???Hold Isosorbide for now -???Hold Eliquis/plavix -???Echo 01/01 with normal LV function and EF 65% ??? Respiratory: - Saturating well on RA -???Bronchopulmonary Hygiene -???Incentive Spirometer -???Supplemental O2 PRN to target SpO2 92%. ??? GI/Diet: -???Diet: Regular -???Bowel regimen: Colace, Senna, Miralax -???Zofran???4 mg q4h???PRN for nausea -???Continue PPI ??? Renal:??? -???HLIV -???Measure I AND O -???Daily BMP, Mg, Phos. Replace???Mg today???(Maintain K >4, Phos >3, Mg >2) - Cortes placed for retention ??? ID:??? -???No indication for antibiotics at this time. ??? Heme:??? -???Patient was transfused???2???uPR BC for low post-op Hb 01/04/22. H/H stable. Will continue to hold eliquis for now. -???Daily CBC ??? Endocrine:??? -???SSI, unclear if on DM meds at home ??? MSK:??? -???Progressive mobility protocol -???PT/OT??? -???NWB RLE ??? PPx: -???VTE -???SCDs only. Continue lovenox 30 BID. Check antiXA 01/08 at 13h00. -???Stress ulcer???-???Continue home PPI ??? Dispo: - Medically cleared for discharge to SNF, accepted to [facility]. Cortes replaced for recurrent urinary retention. Okay to resume Eliquis on 01/10 Follow up: - Ortho (Dr. Sher) 2 weeks -follow up with pcp as well - Urology for cortes removal SCRIBE ATTESTATION 01/08/2022, 6:55 AM. This note is prepared by Daysi Marshall acting as Scribe for Diana Marsh DO. All medical record entries made by the Scribe were at my direction and personally dictated by me. I have reviewed the record and confirm that the note above accurate (more content not included)... Normal [facility] SARS-CoV-2 (COVID-19) RNA NA A+probe Ql (Unsp spec)Ordered By: Rishi Solis on 01-08-2022 Interpretation and review of laboratory results [facility] SARS-CoV-2 (COVID-19) Ab IA Ql Not Detected results are indicative of the absence of SARS-CoV-2 in the specimen submitted for testing. False negative results are possible based on the timing and quality of specimen submitted for testing. This test is intended for use only under Emergency Use Authorization (EUA). This test was developed, and its performance characteristics determined by [employer] which is certified under CLIA as qualified to perform high complexity clinical laboratory testing. [facility] BASIC METABOLIC PANELon 06-0 Anion gap [Moles/Vol] 12 mmol/L Normal 10-20 [facility] Comment on above: Performed By: #### 8 2948 #### NURSING GLUCOSE PROGRAM [address] [place], [address] Calcium [Mass/Vol] 8.0 mg/dL Low 8.4-10.4 [facility] Comment on above: Performed By: #### 8 2942 #### NURSING GLUCOSE PROGRAM [address] [facility] [email or web address], [address] Chloride [Moles/Vol] 100 mmol/L Normal 97-111 [facility] Comment on above: Performed By: #### 8 294 #### NURSING GLUCOSE PROGRAM [address] [place], [address] CO2 [Moles/Vol] 27 mmol/L Normal 21-30 [facility] Comment on above: Performed By: #### 8 2948 #### NURSING GLUCOSE PROGRAM [address] [place], [address] Creatinine [Mass/Vol] 0.56 mg/dL Normal 0.50-1.10 [facility] Comment on above: Performed By: #### 8 2948 #### NURSING GLUCOSE PROGRAM [address] [place], [address] ESTIMATED GFR (CKD-EPI) 88 mL/min/1.73sqm Normal >=60 [facility] Comment on above: Result Comment: 2020 CKD EPI Equation using Creatinine without Race Comment: Estimated glomerular filtration rate (eGFR) is calculated without a race coefficient. Values should be interpreted in the context of the patient's full clinical presentation. Reference: 1. Paulino C, Tyron M, Dasha DC, et al.. A Unifying Approach for GFR Estimation: Recommendations of the NKF-ASN Task Force on Reassessing the Inclusion of Race in Diagnosing Kidney Disease. Swiss Journal of Kidney Diseases 202;79(2):268-88.e1. 2. N Engl J Med 1 Vol. 385 Issue 19 Pages 4014-0435 Performed By: #### 8 2948 #### NURSING GLUCOSE PROGRAM [address] [place], [address] Glucose [Mass/Vol] 134 mg/dL High 80-116 [facility] Comment on above: Performed By: #### 8 2948 #### NURSING GLUCOSE PROGRAM [address] [place], [address] Potassium [Moles/Vol] 3.9 mmol/L Normal 3.3-5.3 [facility] Comment on above: Performed By: #### 8 2948 #### NURSING GLUCOSE PROGRAM [address] [place], [address] Sodium [Moles/Vol] 135 mmol/L Normal 135-148 [facility] Comment on above: Performed By: #### 8 2948 #### NURSING GLUCOSE PROGRAM [address] [place], [address] Urea nitrogen [Mass/Vol] 13 mg/dL Normal 8-22 [facility] Comment on above: Performed By: #### 8 2948 #### NURSING GLUCOSE PROGRAM [address] [facility] [place], [address] Basic metabolic 2000 panelon 01-07-2022 Anion gap [Moles/Vol] 12 mmol/L [facility] Calcium [Mass/Vol] 8.0 mg/dL Low 8.4 - 10. 4 mg/dL [facility] Chloride [Moles/Vol] 100 mmol/L 97 - 111 mmol/L [facility] CO2 [Moles/Vol] 27 mmol/L 21 - 30 mmol/L [facility] Creatinine [Mass/Vol] 0.56 mg/dL 0.50 - 1.10 mg/dL [facility] GFR/1.73 sq M.predicted MDRD (S/P/Bld) [Vol rate/Area] 88 mL/min/{1.73_m2} >=60 mL/min/1.73sqm [facility] Comment on above: 2020 CKD EPI Equatio n using Creatinine without Race Comment: Estimated glomerular filtration rate (eGFR) is calculated without a race coefficient. Values should be interpreted in the context of the patient's full clinical presentation. Reference: 1. Paulino C, Tyron M, Dasha DC, et al.. A Unifying Approach for GFR Estimation: Recommendations of the NKF-ASN Task Force on Reassessing the Inclusion of Race in Diagnosing Kidney Disease. Swiss Journal of Kidney Diseases 202;79(2):268-88.e1. 2. N Engl J Med 2020 Vol. 385 Issue 19 Pages 7101-0214 Glucose [Mass/Vol] 134 mg/dL High 80 - 116 mg/dL [facility] Interpretation and review of laboratory results Abnormal [facility] Potassium [Moles/Vol] 3.9 mmol/L 3.3 - 5.3 mmol/L [facility] Sodium [Moles/Vol] 135 mmol/L 135 - 148 mmol/L [facility] Urea nitrogen [Mass/Vol] 13 mg/dL 8 - 22 mg/dL [facility] CBC panel Auto (Bld)Ordered By: Jaqui Madison on 01-07-2022 Erythrocyte distribution width (RBC) [Ratio] 14.1 % 11.5 - 14.5 % [facility] Hematocrit (Bld) [Volume fraction] 23.5 % Low 36.0 - 46.0 % [facility] Hemoglobin (Bld) [Mass/Vol] 8.3 g/dL Low 12.0 - 15.0 g/dL [facility] Interpretation and review of laboratory results Abnormal [facility] MCH (RBC) [Entitic mass] 30.5 pg 26.0 - 34.0 pg [facility] MCHC (RBC) [Mass/Vol] 35.4 g/dL 32.0 - 35.9 g/dL [facility] MCV (RBC) [Entitic vol] 86 fL 80 - 100 fL [facility] Platelet mean volume (Bld) [Entitic vol] 9.0 fL 7.5 - 11.2 fL [facility] Platelets (Bld) [#/Vol] 114 10*3/uL Low 150 - 400 K/uL [facility] RBC (Bld) [#/Vol] 2.72 10*6/uL Low [facility] WBC (Bld) [#/Vol] 6.7 10*3/uL 4.5 - 11.5 K/uL [facility] COMPLETE BLOOD COUNTon 01-07 Erythrocyte distribution width (RBC) [Ratio] 14.1 % Normal 11.5-14.5 [facility] Comment on above: Performed By: #### 8 2948 #### NURSING GLUCOSE PROGRAM [address] [place] [address], [address] Hematocrit (Bld) [Volume fraction] 23.5 % Low 36.0-46.0 [facility] Comment on above: Performed By: #### 8 2948 #### NURSING GLUCOSE PROGRAM [address] [place], [address] Hemoglobin (Bld) [Mass/Vol] 8.3 g/dL Low 12.0-15.0 [facility] Comment on above: Performed By: #### 8 2948 #### NURSING GLUCOSE PROGRAM [address] [place], [address] MCH (RBC) [Entitic mass] 30.5 pg Normal 26.0-34.0 [facility] Comment on above: Performed By: #### 8 2948 #### NURSING GLUCOSE PROGRAM [address] [place], [address] MCHC (RBC) [Mass/Vol] 35.4 g/dL Normal 32.0-35.9 [facility] Comment on above: Performed By: #### 8 2948 #### NURSING GLUCOSE PROGRAM [address] [place], [address] MCV (RBC) [Entitic vol] 86 fL Normal 80-100 [facility] Comment on above: Performed By: #### 8 2948 #### NURSING GLUCOSE PROGRAM [address] [place], [address] Platelet mean volume (Bld) [Entitic vol] 9.0 fL Normal 7.5-11.2 [facility] Comment on above: Performed By: #### 8 2948 #### NURSING GLUCOSE PROGRAM [address] [place], [address] Platelets (Bld) [#/Vol] 114 10*3/uL Low 150-400 [facility] Comment on above: Performed By: #### 8 2948 #### NURSING GLUCOSE PROGRAM [address] [place], [address] RBC (Bld) [#/Vol] 2.72 10*6/uL Low 4.00-5.20 [facility] Comment on above: Performed By: #### 8 2948 #### NURSING GLUCOSE PROGRAM [address] [place], [address] WBC (Bld) [#/Vol] 6.7 10*3/uL Normal 4.5-11.5 [facility] Comment on above: Performed By: #### 8 2948 #### NURSING GLUCOSE PROGRAM [address] [place], [address] Care Plan Noteon 01-07-2022 District Manager [employer] Authentication Interface Message Text Problem: Routine Care: Goal: Patient care will be managed and maintained throughout hospital stay per unit specific routine care procedure Outcome: Progressing Note: Patient rounded on per hourly rounding unit protocol. Call light within reach, siderails in place, encouraged to call for assistance when needed. Problem: Impaired Mobility: Goal: Ability to tolerate increased activity will improve and be maintained Outcome: Progressing Problem: Activity Intolerance: Goal: Demonstrate progressive return to baseline activity level Outcome: Progressing Problem: VTE Prophylaxis: Goal: Will be free of DVT Outcome: Progressing Problem: Fluid and Electrolyte Imbalance: Goal: Adequate fluid and electrolyte balance will be achieved and maintained Outcome: Progressing Problem: Anxiety: Goal: Level of anxiety will decrease Outcome: Progressing Problem: Acute Pain: Goal: Ability to identify pain intensity on a pain scale and rate it consistently will be achieved and maintained Outcome: Progressing Note: Pain managed through scheduled and PRN medications. Patient able to rate pain using numeric pain scale. Problem: Safety: Goal: Patient will remain free of falls during hospital stay Outcome: Progressing Note: Bed alarm intact. Patient reminded to call for assistance before getting out of bed as needed. Problem: Discharge Planning: Goal: Discharge needs of the adult patient will be met Outcome: Progressing Normal [facility] Consultson 01-07-2022 District Manager [employer] Authentication Interface Message Text Diet Floor Finisher Nutrition Screening Reason for visit: LOS 5 or more days Assessment Admitting Diagnosis: Other fracture of right femur, initial encounter for closed fracture (HCC) [S72.8X1A] High risk nutrition diagnosis: No - no points Past Medical History: History reviewed. No pertinent past medical history. Food Allergies: NKFA Labs: LFT's (last 3 years, up to 5 values) None Albumin: n/a - no points Skin Integrity: Surgical incision - no points Fluid Accumulation: +1 - +2 Pitting edema - 2 points Diet Order: Regular; 2 GM Sodium % PO Intake: 25-50% Intake Difficulties: loose stool - 0 points 5' 1 131.1875 lbs BODY MASS INDEX 01/01/2022 Kg 59.506 kg Lbs 131 lb 3 oz BMI: 24.79 BMI Screening value: 21 or greater - 0 points % Weight Loss: not significant Weight Loss Screening Value: Not significant - 0 points Education: No nutrition education indicated at this time. Comments: Not eating well today, however reports she ate well yesterday. No breakfast taken. Has strawberries at bedside from family. Gets assistance with ordering meal trays. Encouraged her to order her lunch - Nursing in room and states she will assist. Continue to encourage po intake. Number of Points: 2 Nutritional Plan of Care: Less than or equal to 6 points: At this time, patient is at low nutrition risk. DTR to provide routine follow up. Will continue to follow, Dulce Leahy, Diet Floor Finisher Pager [phone] Normal [facility] GLUCOSE, FINGERSTICK-IN OFFI CEon 01-07-2022 Glucose [Mass/Vol] 175 mg/dL High 80-116 [facility] Comment on above: Performed By: #### 8 2948 #### NURSING GLUCOSE PROGRAM [address] [place], [address] Glucose [Mass/Vol] 175 mg/dL High 80 - 116 mg/dL [facility] Interpretation and review of laboratory results Abnormal [facility] Glucose [Mass/Vol] 148 mg/dL High 80-116 [facility] Comment on above: Performed By: #### 8 2948 #### NURSING GLUCOSE PROGRAM [address] [place], [address] Glucose [Mass/Vol] 148 mg/dL High 80 - 116 mg/dL [facility] Interpretation and review of laboratory results Abnormal [facility] Glucose [Mass/Vol] 162 mg/dL High 80-116 [facility] Comment on above: Performed By: #### 8 2948 #### NURSING GLUCOSE PROGRAM [address] [place], [address] Glucose [Mass/Vol] 162 mg/dL High 80 - 116 mg/dL [facility] Interpretation and review of laboratory results Abnormal [facility] Glucose [Mass/Vol] 135 mg/dL High 80-116 [facility] Comment on above: Performed By: #### 8 2948 #### NURSING GLUCOSE PROGRAM [address] [place], [address] Glucose [Mass/Vol] 135 mg/dL High 80 - 116 mg/dL [facility] Interpretation and review of laboratory results Abnormal [facility] Laboratory - Blood bankon Major crossmatch [Interp] Compatible (E) [facility] No Panel Informationon 01-07 Blood Product Code [id number] [facility] ealt Blood Product Description Red Blood Cells [facility] Blood Product Unit Type [id number] [facility] Comment on above: A Pos Status Transfused [facility] Progress Noteson 01-07-2022 District Manager [employer] Authentication Interface Message Text 01/07/22 0750 01/07/22 1221 Neurological / Neuromuscular Neurological / Neuromuscular X X Wakefulness WNL WNL Orientation Disoriented to day;Disoriented to date Disoriented to person;Disoriented to place;Disoriented to day;Disoriented to time;Disoriented to date;Forgetful Attention Short attention, frequent stimulation (5-10 sec) Responds briefly by speaking or following commands Motor RT Upper Extremity 3 3 Motor RT Lower Extremity 3 3 Sensory Right Lower Extremity WNL WNL Sensory Left Lower Extremity WNL WNL Neuro (Other) A AND Ox2, follows commands, denies n/t change in neuro status from morning assessment, A AND Ox0, not following commands Level of Consciousness -- Disoriented to person;Disoriented to place;Disoriented to time;Confused [place] Coma Scale (Adult) Eye Opening 4 3 Best Verbal Response 4 3 Best Motor Response 6 5 GCS Score 14 11 Pupils Right Pupil Size (mm) / Shape -- 3;Round Right Pupil Reaction -- Brisk Left Pupil Size (mm) / Shape -- 3;Round Left Pupil Reaction -- Brisk 1221: Change in neurological status. Trauma paged and resident came to floor for assessment. No new orders at this time. 1239: RN at bedside at this time for assessment, patient now oriented to self, place, and reason for hospitalization. Patient resting comfortably in bed. Trauma MDs made aware of improvement in neurological status. No new orders. Normal [facility] District Manager [employer] Interface Message Text Covering SW Note: SW continuing to follow for DC to SNF. Pt accepted to [facility] [place]. SW sent updated clinicals to admissions and asked for pre-cert to be started. SW attempted to update pt's son, Terry. No answer and VM. SW will continue to follow. Rebeca Mendoza [facility] Care Coordination Department Normal The [employer] Interface Message Text Attestation signed by Diana Marsh DO at 01/07/2022 6:27 PM Teaching Physician Note: I saw and evaluated the patient. I reviewed the resident's documentation and discussed the patient with the resident. I agree with the resident's medical decision making as documented in the resident's note. Brief episode of ams resolved. No further concerns. DIANA MRASH DO Critical care / Trauma / Emergency general surgery My pager: [phone] Trauma resident: [phone] ACS resident: -[phone] (admitted) / -[phone] (new pts) ICU resident: -[phone] (ticu) / -[phone] (sicu) GENERAL INFORMATION --------- TRAUMA STAFF NOTE Patient Name: Toribio Betts Patient seen and examined on 01/07/2022 -------- INTERVAL HISTORY/EVENTS ------ Background: Toribio Betts???is a 86 year old???female???aridana ht in by EMS as a transfer from [facility]???following fall from standing on 12/31. She fell and her leg twisted under her. She is on Eliquis. ??? Hospital Course: 12/31/2021: S/p fall, patient was admitted to [facility] 01/01/2022: No acute events overnight 01/02/2022: Underwent intramedullary implant for femoral shaft fx with ortho, patient Hb dropped to 6.5 and was transfused 2 u pRBC 01/03/2022: Patient received 2 u pRBC and fainted during therapy 01/05/2022: s/p 2 units of PRBC overnight ??? 24 Hour Events: H/H stable 8.3 from 8.7. Asymptomatic. Will try to wean her off O2. Started DVT prophylaxis. Still complaining of some constipation. Saturating at 98% on 3L NC * lactated ringers 50 mL/hr at 01/06/22 1524 Urine output: 750 cc PHYSICAL EXAM BP 150/60 (BP Location: left arm) Pulse 95 Temp 98 ???F (36.7 ???C) (Oral) Resp 18 Ht 5' 1 (1.549 m) Wt 131 lb 3 oz (59.5 kg) SpO2 96% BMI 24.79 kg/m??? General:???NAD, awake/alert HEENT:???NCAT CV: RRR Pulmonary:???CTAB, unlabored breathing on 3 lt NC. Abdomen: soft, non-distended and non-tender Musculoskeletal:???l eft leg tender, mild +1 pitting edema bilaterally, motor and sensations intact. Dressing with some saturation. Pitting edema in LE. Neurological: awakes to voice, at baseline. ??? LABORATORY RESULTS (LAST 24 HOURS) CBC/PT/INR WBC RBC Hgb Hct MCV RDW Plt PT aPTT INR 01/07/22 0123 6.7 2.72 8.3 23.5 86 14.1 114 Basic Metabolic Panel Na K Cl CO2 Gap Glu BUN Cr Ca Mg PO4 01/07/22 0123 135 3.9 100 27 12 134 13 0.56 8.0 IMAGING RESULTS (PERSONALLY REVIEWED) CXR: No new imaging today ASSESSMENT AND PLAN Diagnosis s/p???Fall 12/31: recovering as expected from: -???R femoral shaft fractrue - Acute blood loss anemia - Hyponatremia - resolved ? PMHx: CAD (s/p PCI on plavix), CHF, HLD, HTN, DM, Afib on Eliquis ??? Incidental Findings:???None ??? Plan: Neurological: - Continue tylenol 650 mg q4h - Continue Oxycodone 5 mg q4h PRN ??? CV: -???Monitor Vitals -???Continue home metoprolol, lasix, atorvastatin -???Hold Isosorbide for now -???Hold Eliquis/plavix -???Echo 01/01 with normal LV function and EF 65% ??? Respiratory: - Saturating well on persistent O2 depe 3L NC, CXR today givenndence. -???Bronchopulmonary Hygiene -???Incentive Spirometer -???Supplemental O2 PRN to target SpO2 92%. ??? GI/Diet: -???Diet: Regular -???Bowel regimen: Colace, Senna, Miralax -???Zofran???4 mg q4h???PRN for nausea -???Continue PPI ??? Renal:??? -???HLIV - Discontinue cortes -???Measure I AND O -???Daily BMP, Mg, Phos. Replace Mg today (Maintain K >4, Phos >3, Mg >2) ??? ID:??? -???No indication for antibiotics at this time. ??? Heme:??? -???Patient was transfused 2 uPRBC for low post-op Hb 01/04/22. H/H stable. Will continue to hold eliquis for now. -???Daily CBC ??? Endocrine:??? -???SSI, unclear if on DM meds at home ??? MSK:??? -???Progressive mobility protocol -???PT/OT??? -???NWB RLE ??? PPx: -???VTE -???SCDs only. Restart lovenox 30 BID. Check antiXA 01/08 at 13h00. -???Stress ulcer???-???Continue home PPI ??? Dispo: - Medically cleared for discharge Follow up: - Ortho (Dr. Sher) 2 weeks -follow up with pcp as well No need for f/u with us unless needed. Please contact 24/02 with questions and concerns related to the patient. (Pager: [phone]) Plan discussed with Dr. Marsh. Washington Neely MD General Surgery Trauma Normal [facility] [employer] [facility] RED BLOOD CELL UNIT STATUSon 01-07-2022 Blood product unit Nom (BPU) [ID] [id number] [email or web address] Blood product unit Nom (BPU) [ID] [id number] [email or web address] XR CHEST 1 VIEW AP OR PAon 0 01-07-2022 XR CHEST 1 VIEW AP OR PA EXAMINATION: XR CHEST 1 VIEW AP OR PA 01/07/2022 09:02 AM CLINICAL HISTORY: Reason for Exam: Dyspnea at rest ASSOCIATED DIAGNOSIS: Dyspnea at rest ORDERING PROVIDER: [employer]OLFO [employer] NOTE: COMPARISON: 12/31/2021 FINDINGS: Lines, tubes, and devices: None. Lungs and pleura: No new focal pulmonary consolidation, effusion or pneumothorax. Cardiomediastinal silhouette: The cardiomediastinal silhouette is prominent in size and likely exaggerated by AP technique. Contours are stable account for differences in patient position. Musculoskeletal: Unremarkable. IMPRESSION: No acute cardiopulmonary abnormality identified. MACRO: None Normal [facility] [employer] [facility] EXAMINATION: XR CHEST 1 VIEW AP OR PA 01/07/2022 09:02 AM CLINICAL HISTORY: Reason for Exam: Dyspnea at rest ASSOCIATED DIAGNOSIS: Dyspnea at rest ORDERING PROVIDER: [employer] NOTE: COMPARISON: 12/31/2021 FINDINGS: Lines, tubes, and devices: None. Lungs and pleura: No new focal pulmonary consolidation, effusion or pneumothorax. Cardiomediastinal silhouette: The cardiomediastinal silhouette is prominent in size and likely exaggerated by AP technique. Contours are stable account for differences in patient position. Musculoskeletal: Unremarkable. IMPRESSION: No acute cardiopulmonary abnormality identified. MACRO: None RADIOLOGY Avani Davis MD - 01/07/2022 EXAMINATION: XR CHEST 1 VIEW AP OR PA 01/07/2022 09:02 AM CLINICAL HISTORY: Reason for Exam: Dyspnea at rest ASSOCIATED DIAGNOSIS: Dyspnea at rest ORDERING PROVIDER: [employer] NOTE: COMPARISON: 12/31/2021 FINDINGS: Lines, tubes, and devices: None. Lungs and pleura: No new focal pulmonary consolidation, effusion or pneumothorax. Cardiomediastinal silhouette: The cardiomediastinal silhouette is prominent in size and likely exaggerated by AP technique. Contours are stable account for differences in patient position. Musculoskeletal: Unremarkable. IMPRESSION: No acute cardiopulmonary abnormality identified. MACRO: None [employer] Radiology Study observation (narrative) [employer] XR CHEST 1 VIEW AP OR PAOrde red By: Avani Davis on 01-07-2022 [employer] Work Phone: BASIC METABOLIC PANELon Anion gap [Moles/Vol] 12 mmol/L Normal 10-20 [facility] [employer] [facility] Comment on above: Performed By: #### A KHRIS #### [facility] [address] [place] [address], Calcium [Mass/Vol] 7.8 mg/dL Low 8.4-10.4 [facility] [employer] [facility] Comment on above: Performed By: #### A KHRIS #### S PATHOLOGY LABORATORY [address] [place] [address], Chloride [Moles/Vol] 101 mmol/L Normal 97-111 [facility] [employer] [facility] Comment on above: Performed By: #### A KHRIS #### S PATHOLOGY LABORATORY [address] [place] [address], CO2 [Moles/Vol] 28 mmol/L Normal 21-30 [facility] Comment on above: Performed By: #### A KHRIS #### S PATHOLOGY LABORATORY [address] [place] [address], Creatinine [Mass/Vol] 0.69 mg/dL Normal 0.50-1.10 [facility] [employer] [facility] Comment on above: Performed By: #### A KHRIS #### S PATHOLOGY LABORATORY [address] [place] [address], ESTIMATED GFR (CKD-EPI) 84 mL/min/1.73sqm Normal >=60 [facility] [facility] Comment on above: Result Comment: 2020 CKD EPI Equation using Creatinine without Race Comment: Estimated glomerular filtration rate (eGFR) is calculated without a race coefficient. Values should be interpreted in the context of the patient's full clinical presentation. Reference: 1. Paulino C, Tyron M, Dasha MCHUGH, et al.. A Unifying Approach for GFR Estimation: Recommendations of the NKF-ASN Task Force on Reassessing the Inclusion of Race in Diagnosing Kidney Disease. Swiss Journal of Kidney Diseases 2021;79(2):268-88.e1. 2. N Engl J Med 1 Vol. 385 Issue 19 Pages 7639-7519 Performed By: #### A KHRIS #### S PATHOLOGY LABORATORY [address] [place] [address], Glucose [Mass/Vol] 129 mg/dL High 80-116 [email or web address] Comment on above: Performed By: #### A KHRIS #### [facility] [address] [place] [address], Potassium [Moles/Vol] 3.5 mmol/L Normal 3.3-5.3 [email or web address] Comment on above: Performed By: #### A KHRIS #### [facility] [address] [place] [address], Sodium [Moles/Vol] 137 mmol/L Normal 135-148 [email or web address] Comment on above: Performed By: #### A KHRIS #### S PATHOLOGY LABORATORY [address] [place] [address], Urea nitrogen [Mass/Vol] 18 mg/dL Normal 8-22 [email or web address] Comment on above: Performed By: #### A KHRIS #### S PATHOLOGY LABORATORY [address] [place] [address], Basic metabolic 2000 panelon 01-06-2022 Anion gap [Moles/Vol] 12 mmol/L [facility] Calcium [Mass/Vol] 7.8 mg/dL Low 8.4 - 10. 4 mg/dL [facility] Chloride [Moles/Vol] 101 mmol/L 97 - 111 mmol/L [facility] CO2 [Moles/Vol] 28 mmol/L 21 - 30 mmol/L [facility] Creatinine [Mass/Vol] 0.69 mg/dL 0.50 - 1.10 mg/dL [facility] GFR/1.73 sq M.predicted MDRD (S/P/Bld) [Vol rate/Area] 84 mL/min/{1.73_m2} >=60 mL/min/1.73sqm [facility] Comment on above: 2020 CKD EPI Equatio n using Creatinine without Race Comment: Estimated glomerular filtration rate (eGFR) is calculated without a race coefficient. Values should be interpreted in the context of the patient's full clinical presentation. Reference: 1. Paulino C, Tyron M, Dasha MCHUGH, et al.. A Unifying Approach for GFR Estimation: Recommendations of the NKF-ASN Task Force on Reassessing the Inclusion of Race in Diagnosing Kidney Disease. [place] Journal of Kidney Diseases 2021;79(2):268-88.e1. 2. N Engl J Med 2020 Vol. 385 Issue 19 Pages 0306-5818 Glucose [Mass/Vol] 129 mg/dL High 80 - 116 mg/dL [facility] Interpretation and review of laboratory results Abnormal [facility] Potassium [Moles/Vol] 3.5 mmol/L 3.3 - 5.3 mmol/L [facility] Sodium [Moles/Vol] 137 mmol/L 135 - 148 mmol/L [facility] Urea nitrogen [Mass/Vol] 18 mg/dL 8 - 22 mg/dL [facility] CBC panel Auto (Bld)on 01-06 Erythrocyte distribution width (RBC) [Ratio] 13.9 % 11.5 - 14.5 % [facility] Hematocrit (Bld) [Volume fraction] 24.8 % Low 36.0 - 46.0 % [facility] Hemoglobin (Bld) [Mass/Vol] 8.7 g/dL Low 12.0 - 15.0 g/dL [facility] Interpretation and review of laboratory results Abnormal [facility] MCH (RBC) [Entitic mass] 30.0 pg 26.0 - 34.0 pg [facility] MCHC (RBC) [Mass/Vol] 35.2 g/dL 32.0 - 35.9 g/dL [facility] MCV (RBC) [Entitic vol] 85 fL 80 - 100 fL [facility] Platelet mean volume (Bld) [Entitic vol] 9.6 fL 7.5 - 11.2 fL [facility] Platelets (Bld) [#/Vol] 82 10*3/uL Low 150 - 400 K/uL [facility] RBC (Bld) [#/Vol] 2.91 10*6/uL Low [facility] WBC (Bld) [#/Vol] 9.1 10*3/uL 4.5 - 11.5 K/uL [facility] COMPLETE BLOOD COUNTon 01-06 Erythrocyte distribution width (RBC) [Ratio] 13.9 % Normal 11.5-14.5 [facility] Comment on above: Performed By: #### C BC ####[facility] [id number] [place] [address], Hematocrit (Bld) [Volume fraction] 24.8 % Low 36.0-46.0 [facility] Comment on above: Performed By: #### C BC ####[facility] [id number] [place] [address], Hemoglobin (Bld) [Mass/Vol] 8.7 g/dL Low 12.0-15.0 [facility] Comment on above: Performed By: #### C BC ####[facility] [id number] [place] [address], MCH (RBC) [Entitic mass] 30.0 pg Normal 26.0-34.0 [facility] Comment on above: Performed By: #### C BC ####[facility] [id number] [place] [address], MCHC (RBC) [Mass/Vol] 35.2 g/dL Normal 32.0-35.9 [facility] Comment on above: Performed By: #### C BC ####[facility] [id number] [place] [address], MCV (RBC) [Entitic vol] 85 fL Normal 80-100 [facility] Comment on above: Performed By: #### C BC ####[facility] [id number] [place], [place], Platelet mean volume (Bld) [Entitic vol] 9.6 fL Normal 7.5-11.2 [facility] Comment on above: Performed By: #### C BC ####[facility] [id number] [place], [place], Platelets (Bld) [#/Vol] 82 10*3/uL Low 150-400 [facility] [employer] [facility] Comment on above: Performed By: #### C BC ####[facility] [id number] [place], [place], RBC (Bld) [#/Vol] 2.91 10*6/uL Low 4.00-5.20 [email or web address] Comment on above: Performed By: #### C BC ####[facility] [id number] [place], [place], WBC (Bld) [#/Vol] 9.1 10*3/uL Normal 4.5-11.5 [facility] [facility] Comment on above: Performed By: #### C BC ####[facility] [id number] [place], [place], Care Plan Noteon 01-06-2022 District Manager [employer] Authentication Interface Message Text Problem: Routine Care: Goal: Patient care will be managed and maintained throughout hospital stay per unit specific routine care procedure Outcome: Progressing Note: Patient rounded on per hourly rounding unit protocol. Call light within reach, siderails in place, encouraged to call for assistance when needed. Problem: Impaired Mobility: Goal: Ability to tolerate increased activity will improve and be maintained Outcome: Progressing Note: PT/OT consults Problem: Activity Intolerance: Goal: Demonstrate progressive return to baseline activity level Outcome: Progressing Problem: VTE Prophylaxis: Goal: Will be free of DVT Outcome: Progressing Problem: Fluid and Electrolyte Imbalance: Goal: Adequate fluid and electrolyte balance will be achieved and maintained Outcome: Progressing Problem: Anxiety: Goal: Level of anxiety will decrease Outcome: Progressing Problem: Acute Pain: Goal: Ability to identify pain intensity on a pain scale and rate it consistently will be achieved and maintained Outcome: Progressing Note: Pain managed through scheduled and PRN medications. Patient able to rate pain using numeric pain scale. Problem: Safety: Goal: Patient will remain free of falls during hospital stay Outcome: Progressing Problem: Discharge Planning: Goal: Discharge needs of the adult patient will be met Outcome: Progressing Normal [facility] GLUCOSE, FINGERSTICK-IN OFFI CEon 01-06-2022 Glucose [Mass/Vol] 154 mg/dL High 80-116 [facility] Comment on above: Result Comment: Basilia toribio RN, APN, MD Performed By: #### 8 2948 #### NURSING GLUCOSE PROGRAM [address] [place], [address] Glucose [Mass/Vol] 154 mg/dL High 80 - 116 mg/dL [facility] Comment on above: Notified MARIA FERNANDA ARTEAGA MD Interpretation and review of laboratory results Abnormal [facility] Glucose [Mass/Vol] 163 mg/dL High 80-116 [facility] Comment on above: Performed By: #### 8 2948 ####NURSING GLUCOSE [id number] [place], [address] Glucose [Mass/Vol] 163 mg/dL High 80 - 116 mg/dL [facility] Interpretation and review of laboratory results Abnormal [facility] Glucose [Mass/Vol] 198 mg/dL High 80-116 [facility] Comment on above: Performed By: #### 8 2948 #### NURSING GLUCOSE PROGRAM [address] [place], [address] Glucose [Mass/Vol] 198 mg/dL High 80 - 116 mg/dL [facility] Interpretation and review of laboratory results Abnormal [facility] Glucose [Mass/Vol] 126 mg/dL High 80-116 [facility] Comment on above: Performed By: #### 8 2948 #### NURSING GLUCOSE PROGRAM [address] [place], [address] Glucose [Mass/Vol] 126 mg/dL High 80 - 116 mg/dL [facility] Interpretation and review of laboratory results Abnormal [facility] MAGNESIUMon 01-06-2022 Interpretation and review of laboratory results Normal [facility] Magnesium [Mass/Vol] 2.4 mg/dL 1.6 - 2.8 mg/dL [facility] Magnesium [Mass/Vol] 2.4 mg/dL Normal 1.6-2.8 [facility] Comment on above: Performed By: #### A KHRIS #### [facility] [address] [place], [address] Progress Noteson 01-06-2022 District Manager [employer] Authentication Interface Message Text GENERAL INFORMATION --------- TRAUMA STAFF NOTE Patient Name: Toribio Betts Patient seen and examined on 01/06/2022 -------- INTERVAL HISTORY/EVENTS ------ Background: Toribio Betts is a 86 year old female brought in by EMS as a transfer from [facility] following fall from standing on 12/31. She fell and her leg twisted under her. She is on Eliquis. Hospital Course: 12/31/2021: S/p fall, patient was admitted to [facility] 01/01/2022: No acute events overnight 01/02/2022: POD 1, patient Hb dropped to 6.5 and was transfused 2 u pRBC 01/03/2022: Patient received 2 u pRBC and fainted during therapy 01/05/2022: s/p 2 units of PRBC overnight 24 Hour Events: New drop in Hgb this AM 8.7 from 9.9. Asymptomatic. No lightheadedness. Will continue to monitor. Will continue to hold DVT prophylaxis. Saturating at 98% on 3L NC lactated ringers Urine output: 750 cc PHYSICAL EXAM BP 144/51 (BP Location: left arm) Pulse 77 Temp 98.2 ???F (36.8 ???C) (Oral) Resp 18 Ht 5' 1 (1.549 m) Wt 131 lb 3 oz (59.5 kg) SpO2 100% BMI 24.79 kg/m??? General: NAD, awake/alert HEENT: NCAT CV: RRR Pulmonary: CTAB Abdomen: soft, non-distended and non-tender Musculoskeletal: left leg tender, mild +1 pitting edema bilaterally, motor and sensations intact. Neurological: awakes to voice, at baseline. LABORATORY RESULTS (LAST 24 HOURS) CBC/PT/INR WBC RBC Hgb Hct MCV RDW Plt PT aPTT INR 01/06/22 0044 9.1 2.91 8.7 24.8 85 13.9 82 01/05/22 1032 11.0 3.22 9.9 28.2 88 13.7 73 Basic Metabolic Panel Na K Cl CO2 Gap Glu BUN Cr Ca Mg PO4 01/06/22 0044 137 3.5 101 28 12 129 18 0.69 7.8 01/05/22 1032 134 3.8 101 24 13 137 24 0.75 7.8 IMAGING RESULTS (PERSONALLY REVIEWED) CXR: No new imaging today ASSESSMENT AND PLAN Diagnosis s/p Fall 12/31: recovering as expected from: - R femoral shaft fractrue - Acute blood loss anemia - Hyponatremia PMHx: CAD, CHF, HLD, HTN, DM, Afib on Eliquis Incidental Findings: None Plan: Neurological: - Continue tylenol 650 mg q4h - Continue Oxycodone 5 mg q4h PRN CV: - Monitor Vitals - Continue home metoprolol, lasix, atorvastatin - Hold Isosorbide for now - Hold Eliquis/plavix - Echo 01/01 with normal LV function and EF without significant valve abnormality. Respiratory: - Saturating well on 3L NC - Bronchopulmonary Hygiene - Incentive Spirometer - Supplemental O2 PRN to target SpO2 92%. GI/Diet: - Diet: Regular - Bowel regimen: Colace, Senna - Zofran 4 mg q4h PRN for nausea - Continue PPI Renal: - HLIV - Cortes in place for: Beata-operative - Measure I AND O - Daily BMP, Mg, Phos. Replace Mg today (Maintain K >4, Phos >3, Mg >2) ID: - No indication for antibiotics at this time. Heme: - Patient was transfused 2 uPRBC for low post-op Hb yesterday - Daily CBC Endocrine: - SSI, unclear if on DM meds at home MSK: - Progressive mobility protocol - PT/OT - NWB RLE PPx: - VTE - SCDs only. Hold chemoprophylaxis for drop in Hgb - Stress ulcer - No GI ppx indicated Dispo: - Likely to SNF at [facility] Follow up: - Ortho (Dr. Sher) 2 weeks -follow up with pcp as well No need for f/u with us unless needed. Please contact 24/02 with questions and concerns related to the patient. (Pager: [phone]) Plan discussed with Dr. Bernal. Washington Neely MD General Surgery Trauma Teaching Physician Note: I saw and evaluated the patient. I personally obtained the cloud and critical portions of the history and physical exam. I reviewed the resident's documentation and discussed the patient with the resident and team on rounds. I agree with the medical decision making as documented in this note, which are reflective of the plans we discussed. Trauma Attending: Silviano Bernal MD Normal [facility] [facility] District Manager [employer] Sales Authentication Interface Message Text 0300: Patient's R leg dressing has heavy shadowing and hgb decreased from 9.9 to 8.7. Patient VS are WNL and neurologically is at baseline. Chucky MAYERS updated, will continue to monitor. Normal [facility] [employer] [facility] BASIC METABOLIC PANELon 06-0 -2021 Anion gap [Moles/Vol] 13 mmol/L Normal 10-20 [facility] [employer] [facility] Comment on above: Performed By: #### A KHRIS #### [facility] [address], [place], Calcium [Mass/Vol] 7.8 mg/dL Low 8.4-10.4 [facility] Comment on above: Performed By: #### A KHRIS #### [facility] [address] [place], [address] Chloride [Moles/Vol] 101 mmol/L Normal 97-111 [facility] Comment on above: Performed By: #### Vianney PINEDO #### [facility] [address], [place], CO2 [Moles/Vol] 24 mmol/L Normal 21-30 [email or web address] Comment on above: Performed By: #### A KHRIS #### [facility] [address], [place], Creatinine [Mass/Vol] 0.75 mg/dL Normal 0.50-1.10 [email or web address] Comment on above: Performed By: #### Vianney PINEDO #### [facility] [address], [place], ESTIMATED GFR (CKD-EPI) 77 mL/min/1.73sqm Normal >=60 [email or web address] Comment on above: Result Comment: 2020 CKD EPI Equation using Creatinine without Race Comment: Estimated glomerular filtration rate (eGFR) is calculated without a race coefficient. Values should be interpreted in the context of the patient's full clinical presentation. Reference: 1. Paulino C, Tyron M, Dasha MCHUGH, et al.. A Unifying Approach for GFR Estimation: Recommendations of the NKF-ASN Task Force on Reassessing the Inclusion of Race in Diagnosing Kidney Disease. Swiss Journal of Kidney Diseases 2021;79(2):268-88.e1. 2. N Engl J Med 1 Vol. 385 Issue 19 Pages 8791-5039 Performed By: #### Vianney PINEDO #### [facility] [address], [place], Glucose [Mass/Vol] 137 mg/dL High 80-116 [email or web address] Comment on above: Performed By: #### Vianney PINEDO #### [facility] [address], [place], Potassium [Moles/Vol] 3.8 mmol/L Normal 3.3-5.3 [email or web address] Comment on above: Performed By: #### A KHRIS #### [facility] [address], [place], Sodium [Moles/Vol] 134 mmol/L Low 135-148 [email or web address] Comment on above: Performed By: #### Vianney PINEDO #### [facility] [address] [place], [address] Urea nitrogen [Mass/Vol] 24 mg/dL High 8-22 [facility] Comment on above: Performed By: #### A KHRIS #### [facility] [address] [place], [address] Anion gap [Moles/Vol] 12 mmol/L Normal 10-20 [facility] Comment on above: Performed By: #### 8 2948 #### NURSING GLUCOSE PROGRAM [address] [place], [address] Calcium [Mass/Vol] 7.9 mg/dL Low 8.4-10.4 [facility] Comment on above: Performed By: #### 8 2948 #### [facility]UR[facility] GLUCOSE PROGRAM [address] [place] [address], [address] Chloride [Moles/Vol] 98 mmol/L Normal 97-111 [facility] Comment on above: Performed By: #### 8 2948 #### [facility]URSING GLUCOSE PROGRAM [address] [place] [address], [address] CO2 [Moles/Vol] 25 mmol/L Normal 21-30 [facility] Comment on above: Performed By: #### 8 2948 #### [facility]UR[facility] GLUCOSE PROGRAM [address] [place] [address], [address] Creatinine [Mass/Vol] 0.96 mg/dL Normal 0.50-1.10 [facility] Comment on above: Performed By: #### 8 2948 #### NURSING GLUCOSE PROGRAM [address] [place] [address], [address] ESTIMATED GFR (CKD-EPI) 57 mL/min/1.73sqm Low >=60 [facility] Comment on above: Result Comment: 2020 CKD EPI Equation using Creatinine without Race Comment: Estimated glomerular filtration rate (eGFR) is calculated without a race coefficient. Values should be interpreted in the context of the patient's full clinical presentation. Reference: 1. Paulino C, Tyron M, Dasha MCHUGH, et al.. A Unifying Approach for GFR Estimation: Recommendations of the NKF-ASN Task Force on Reassessing the Inclusion of Race in Diagnosing Kidney Disease. Swiss Journal of Kidney Diseases 202;79(2):268-88.e1. 2. N Engl J Med 1 Vol. 385 Issue 19 Pages 1465-4490 Performed By: #### 8 2948 #### NURSING GLUCOSE PRO[facility] [address] [place], [address] Glucose [Mass/Vol] 154 mg/dL High 80-116 [facility] Comment on above: Performed By: #### 8 2948 #### NURSING GLUCOSE PROGRAM [address] [place], [address] Potassium [Moles/Vol] 3.7 mmol/L Normal 3.3-5.3 [facility] Comment on above: Performed By: #### 8 2948 #### NURSING GLUCOSE PROGRAM [address] [place], [address] Sodium [Moles/Vol] 131 mmol/L Low 135-148 [facility] Comment on above: Performed By: #### 8 2948 #### NURSING GLUCOSE PROGRAM [address] [place], [address] Urea nitrogen [Mass/Vol] 30 mg/dL High 8-22 [facility] Comment on above: Performed By: #### 8 2948 #### NURSING GLUCOSE PROGRAM [address] [place], [address] Basic metabolic 2000 panelon 01-05-2022 Anion gap [Moles/Vol] 13 mmol/L [facility] Calcium [Mass/Vol] 7.8 mg/dL Low 8.4 - 10. 4 mg/dL [facility] Chloride [Moles/Vol] 101 mmol/L 97 - 111 mmol/L [facility] CO2 [Moles/Vol] 24 mmol/L 21 - 30 mmol/L [facility] Creatinine [Mass/Vol] 0.75 mg/dL 0.50 - 1.10 mg/dL [facility] GFR/1.73 sq M.predicted MDRD (S/P/Bld) [Vol rate/Area] 77 mL/min/{1.73_m2} >=60 mL/min/1.73sqm [facility] Comment on above: 2020 CKD EPI Equatio n using Creatinine without Race Comment: Estimated glomerular filtration rate (eGFR) is calculated without a race coefficient. Values should be interpreted in the context of the patient's full clinical presentation. Reference: 1. Paulino C, Dasha Neely [place], et al.. A Unifying Approach for GFR Estimation: Recommendations of the NKF-ASN Task Force on Reassessing the Inclusion of Race in Diagnosing Kidney Disease. [place] Journal of Kidney Diseases 2022;79(2):268-88.e1. 2. N Engl J Med 2020 Vol. 385 Issue 19 Pages 5231-3104 Glucose [Mass/Vol] 137 mg/dL High 80 - 116 mg/dL [facility] Interpretation and review of laboratory results Abnormal [facility] Potassium [Moles/Vol] 3.8 mmol/L 3.3 - 5.3 mmol/L [facility] Sodium [Moles/Vol] 134 mmol/L Low 135 - 148 mmol/L [facility] Urea nitrogen [Mass/Vol] 24 mg/dL High 8 - 22 mg/dL [facility] Anion gap [Moles/Vol] 12 mmol/L [facility] Calcium [Mass/Vol] 7.9 mg/dL Low 8.4 - 10. 4 mg/dL [facility] Chloride [Moles/Vol] 98 mmol/L 97 - 111 mmol/L [facility] CO2 [Moles/Vol] 25 mmol/L 21 - 30 mmol/L [facility] Creatinine [Mass/Vol] 0.96 mg/dL 0.50 - 1.10 mg/dL [facility] GFR/1.73 sq M.predicted MDRD (S/P/Bld) [Vol rate/Area] 57 mL/min/{1.73_m2} Low >=60 mL/min/1.73sqm [facility] Comment on above: 2020 CKD EPI Equatio n using Creatinine without Race Comment: Estimated glomerular filtration rate (eGFR) is calculated without a race coefficient. Values should be interpreted in the context of the patient's full clinical presentation. Reference: 1. Tyron Cannon Crews [place], et al.. A Unifying Approach for GFR Estimation: Recommendations of the NKF-ASN Task Force on Reassessing the Inclusion of Race in Diagnosing Kidney Disease. [place] Journal of Kidney Diseases 2022;79(2):268-88.e1. 2. N Engl J Med 2020 Vol. 385 Issue 19 Pages 9432-0009 Glucose [Mass/Vol] 154 mg/dL High 80 - 116 mg/dL [facility] Interpretation and review of laboratory results Abnormal [facility] Potassium [Moles/Vol] 3.7 mmol/L 3.3 - 5.3 mmol/L [facility] Sodium [Moles/Vol] 131 mmol/L Low 135 - 148 mmol/L [facility] Urea nitrogen [Mass/Vol] 30 mg/dL High 8 - 22 mg/dL [facility] CBC panel Auto (Bld)Ordered By: Rina Cruz on 01-05-2022 Erythrocyte distribution width (RBC) [Ratio] 13.7 % 11.5 - 14.5 % [facility] Hematocrit (Bld) [Volume fraction] 28.2 % Low 36.0 - 46.0 % [facility] Hemoglobin (Bld) [Mass/Vol] 9.9 g/dL Low 12.0 - 15.0 g/dL [facility] Interpretation and review of laboratory results Abnormal [facility] MCH (RBC) [Entitic mass] 30.7 pg 26.0 - 34.0 pg [facility] MCHC (RBC) [Mass/Vol] 35.1 g/dL 32.0 - 35.9 g/dL [facility] MCV (RBC) [Entitic vol] 88 fL 80 - 100 fL [facility] Platelet mean volume (Bld) [Entitic vol] 10.1 fL 7.5 - 11.2 fL [facility] Platelets (Bld) [#/Vol] 73 10*3/uL Low 150 - 400 K/uL [facility] RBC (Bld) [#/Vol] 3.22 10*6/uL Low [facility] WBC (Bld) [#/Vol] 11.0 10*3/uL 4.5 - 11.5 K/uL [facility] CBC panel Auto (Bld)on 01-05 Erythrocyte distribution width (RBC) [Ratio] 14.1 % 11.5 - 14.5 % [facility] Hematocrit (Bld) [Volume fraction] 17.6 % Critically low 36.0 - 46.0 % [facility] Hemoglobin (Bld) [Mass/Vol] 6.2 g/dL Critically low 12.0 - 15.0 g/dL [facility] Interpretation and review of laboratory results Abnormal [facility] MCH (RBC) [Entitic mass] 30.0 pg 26.0 - 34.0 pg [facility] MCHC (RBC) [Mass/Vol] 35.1 g/dL 32.0 - 35.9 g/dL [facility] MCV (RBC) [Entitic vol] 86 fL 80 - 100 fL [facility] Platelet mean volume (Bld) [Entitic vol] 9.9 fL 7.5 - 11.2 fL [facility] Platelets (Bld) [#/Vol] 77 10*3/uL Low 150 - 400 K/uL [facility] RBC (Bld) [#/Vol] 2.06 10*6/uL Low [facility] WBC (Bld) [#/Vol] 9.5 10*3/uL 4.5 - 11.5 K/uL [facility] CBC panel Auto (Bld)Ordered By: Enid Cabrales on 01-05-2022 Erythrocyte distribution width (RBC) [Ratio] 14.4 % 11.5 - 14.5 % [facility] Hematocrit (Bld) [Volume fraction] 17.2 % Critically low 36.0 - 46.0 % [facility] Hemoglobin (Bld) [Mass/Vol] 6.0 g/dL Critically low 12.0 - 15.0 g/dL [facility] Interpretation and review of laboratory results Abnormal [facility] MCH (RBC) [Entitic mass] 29.8 pg 26.0 - 34.0 pg [facility] MCHC (RBC) [Mass/Vol] 34.8 g/dL 32.0 - 35.9 g/dL [facility] MCV (RBC) [Entitic vol] 86 fL 80 - 100 fL [facility] Platelet mean volume (Bld) [Entitic vol] 10.0 fL 7.5 - 11.2 fL [facility] Platelets (Bld) [#/Vol] 85 10*3/uL Low 150 - 400 K/uL [facility] RBC (Bld) [#/Vol] 2.00 10*6/uL Low [facility] WBC (Bld) [#/Vol] 10.0 10*3/uL 4.5 - 11.5 K/uL [facility] COMPLETE BLOOD COUNTon 01-05 Erythrocyte distribution width (RBC) [Ratio] 13.7 % Normal 11.5-14.5 [facility] Comment on above: Performed By: #### 8 7241 #### NURSING GLUCOSE PROGRAM [address] [place], [address] Hematocrit (Bld) [Volume fraction] 28.2 % Low 36.0-46.0 [facility] Comment on above: Performed By: #### 8 2948 #### NURSING GLUCOSE PROGRAM [address] [place], [address] Hemoglobin (Bld) [Mass/Vol] 9.9 g/dL Low 12.0-15.0 [facility] Comment on above: Performed By: #### 8 2948 #### NURSING GLUCOSE PROGRAM [address] [place], [address] MCH (RBC) [Entitic mass] 30.7 pg Normal 26.0-34.0 [facility] Comment on above: Performed By: #### 8 2948 #### NURSING GLUCOSE PROGRAM [address] [place] [address], [address] MCHC (RBC) [Mass/Vol] 35.1 g/dL Normal 32.0-35.9 [facility] Comment on above: Performed By: #### 8 2948 #### NURSING GLUCOSE PROGRAM [address] [place] [address], [address] MCV (RBC) [Entitic vol] 88 fL Normal 80-100 [facility] Comment on above: Performed By: #### 8 2948 #### NURSING GLUCOSE PROGRAM [address] [place], [address] Platelet mean volume (Bld) [Entitic vol] 10.1 fL Normal 7.5-11.2 [facility] Comment on above: Performed By: #### 8 2948 #### NURSING GLUCOSE PROGRAM [address] [place], [address] Platelets (Bld) [#/Vol] 73 10*3/uL Low 150-400 [facility] Comment on above: Performed By: #### 8 2948 #### NURSING GLUCOSE PROGRAM [address] [place], [address] RBC (Bld) [#/Vol] 3.22 10*6/uL Low 4.00-5.20 [facility] Comment on above: Performed By: #### 8 2948 #### NURSING GLUCOSE PROGRAM [address] [place], [address] WBC (Bld) [#/Vol] 11.0 10*3/uL Normal 4.5-11.5 [facility] Comment on above: Performed By: #### 8 2948 #### NURSING GLUCOSE PROGRAM [address], [place], Erythrocyte distribution width (RBC) [Ratio] 14.1 % Normal 11.5-14.5 [facility] Comment on above: Performed By: #### C BC #### [facility] [address] [place] [address], Hematocrit (Bld) [Volume fraction] 17.6 % Critically low 36.0-46.0 [facility] Comment on above: Performed By: #### C BC #### [facility] [address] [place] [address], Hemoglobin (Bld) [Mass/Vol] 6.2 g/dL Critically low 12.0-15.0 [facility] Comment on above: Performed By: #### C BC #### [facility] [address] [place] [address], MCH (RBC) [Entitic mass] 30.0 pg Normal 26.0-34.0 [facility] Comment on above: Performed By: #### C BC #### [facility] [address] [place] [address], MCHC (RBC) [Mass/Vol] 35.1 g/dL Normal 32.0-35.9 [facility] Comment on above: Performed By: #### C BC #### [facility] [address] [place] [address], MCV (RBC) [Entitic vol] 86 fL Normal 80-100 [facility] Comment on above: Performed By: #### C BC #### [facility] [address] [place] [address], Platelet mean volume (Bld) [Entitic vol] 9.9 fL Normal 7.5-11.2 [facility] Comment on above: Performed By: #### C BC #### [facility] [address] [place] [address], Platelets (Bld) [#/Vol] 77 10*3/uL Low 150-400 [facility] Comment on above: Performed By: #### C BC #### S PATHOLOGY LABORATORY [address] [place] [address], RBC (Bld) [#/Vol] 2.06 10*6/uL Low 4.00-5.20 [facility] Comment on above: Performed By: #### C BC #### [facility] [address] [place] [address], WBC (Bld) [#/Vol] 9.5 10*3/uL Normal 4.5-11.5 [facility] Comment on above: Performed By: #### C BC #### [facility] [address] [place] [address], Erythrocyte distribution width (RBC) [Ratio] 14.4 % Normal 11.5-14.5 [facility] Comment on above: Performed By: #### 8 2948 #### NURSING GLUCOSE PROGRAM [address] [place] [address], Hematocrit (Bld) [Volume fraction] 17.2 % Critically low 36.0-46.0 [facility] Comment on above: Performed By: #### 8 2948 #### NURSING GLUCOSE PROGRAM [address] [place] [address], Hemoglobin (Bld) [Mass/Vol] 6.0 g/dL Critically low 12.0-15.0 [facility] Comment on above: Performed By: #### 8 2948 #### NURSING GLUCOSE PROGRAM [address] [place] [address], [address] MCH (RBC) [Entitic mass] 29.8 pg Normal 26.0-34.0 [facility] Comment on above: Performed By: #### 8 2948 #### NURSING GLUCOSE PROGRAM [address] [place] [address], [address] MCHC (RBC) [Mass/Vol] 34.8 g/dL Normal 32.0-35.9 [facility] Comment on above: Performed By: #### 8 2948 #### NURSING GLUCOSE PROGRAM [address] [place] [address], [address] MCV (RBC) [Entitic vol] 86 fL Normal 80-100 [facility] Comment on above: Performed By: #### 8 2948 #### NURSING GLUCOSE PROGRAM [address] [place], [address] Platelet mean volume (Bld) [Entitic vol] 10.0 fL Normal 7.5-11.2 [facility] Comment on above: Performed By: #### 8 2948 #### NURSING GLUCOSE PROGRAM [address] [place], [address] Platelets (Bld) [#/Vol] 85 10*3/uL Low 150-400 [facility] Comment on above: Performed By: #### 8 2948 #### NURSING GLUCOSE PROGRAM [address] [place], [address] RBC (Bld) [#/Vol] 2.00 10*6/uL Low 4.00-5.20 [facility] Comment on above: Performed By: #### 8 2948 #### NURSING GLUCOSE PROGRAM [address] [place], [address] WBC (Bld) [#/Vol] 10.0 10*3/uL Normal 4.5-11.5 [facility] Comment on above: Performed By: #### 8 2948 #### NURSING GLUCOSE PROGRAM [address] [place], [address] Care Plan Noteon 01-05-2022 District Manager [employer] Authentication Interface Message Text Problem: Routine Care: Goal: Patient care will be managed and maintained throughout hospital stay per unit specific routine care procedure Outcome: Progressing Problem: Impaired Mobility: Goal: Ability to tolerate increased activity will improve and be maintained Outcome: Progressing Problem: Activity Intolerance: Goal: Demonstrate progressive return to baseline activity level Outcome: Progressing Problem: VTE Prophylaxis: Goal: Will be free of DVT Outcome: Progressing Note: Lovenox BID Problem: Fluid and Electrolyte Imbalance: Goal: Adequate fluid and electrolyte balance will be achieved and maintained Outcome: Progressing Problem: Anxiety: Goal: Level of anxiety will decrease Outcome: Progressing Problem: Acute Pain: Goal: Ability to identify pain intensity on a pain scale and rate it consistently will be achieved and maintained Outcome: Progressing Problem: Safety: Goal: Patient will remain free of falls during hospital stay Outcome: Progressing Problem: Discharge Planning: Goal: Discharge needs of the adult patient will be met Outcome: Progressing Normal [facility] GLUCOSE, FINGERSTICK-IN OFFI CEon 01-05-2022 Glucose [Mass/Vol] 146 mg/dL High 80-116 [facility] Comment on above: Result Comment: Basilia toribio RN, APN, MD Performed By: #### 8 2948 #### NURSING GLUCOSE PROGRAM [address] [place], [address] Glucose [Mass/Vol] 146 mg/dL High 80 - 116 mg/dL [facility] Comment on above: Notified MARIA FERNANDA ARTEAGA MD Interpretation and review of laboratory results Abnormal [facility] Glucose [Mass/Vol] 132 mg/dL High 80-116 [facility] Comment on above: Performed By: #### 8 2948 #### NURSING GLUCOSE PROGRAM [address] [place], [address] Glucose [Mass/Vol] 132 mg/dL High 80 - 116 mg/dL [facility] Interpretation and review of laboratory results Abnormal [facility] Glucose [Mass/Vol] 130 mg/dL High 80-116 [facility] Comment on above: Performed By: #### 8 2948 #### NURSING GLUCOSE PROGRAM [address] [place], [address] Glucose [Mass/Vol] 130 mg/dL High 80 - 116 mg/dL [facility] Interpretation and review of laboratory results Abnormal [facility] Glucose [Mass/Vol] 155 mg/dL High 80-116 [facility] Comment on above: Performed By: #### 8 2948 #### NURSING GLUCOSE PROGRAM [address] [place], [address] Glucose [Mass/Vol] 155 mg/dL High 80 - 116 mg/dL [facility] Interpretation and review of laboratory results Abnormal [facility] - Blood bankon ABO and Rh group Nom (Bld) Blood group A Rh(D) positive [facility] Comment on above: vision Progress Noteson 01-05-2022 District Manager [employer] Authentication Interface Message Text GENERAL INFORMATION --------- TRAUMA STAFF NOTE Patient Name: Toribio Betts Patient seen and examined on 01/05/2022 -------- INTERVAL HISTORY/EVENTS ------ Background: Toribio Betts is a 86 year old female brought in by EMS as a transfer from [facility] following fall from standing on 12/31. She fell and her leg twisted under her. She is on Eliquis. Hospital Course: 12/31/2021: S/p fall, patient was admitted to [facility] 01/01/2022: No acute events overnight 01/02/2022: POD 1, patient Hb dropped to 6.5 and was transfused 2 u pRBC 01/03/2022: Patient received 2 u pRBC and fainted during therapy 01/05/2022: s/p 2 units of PRBC overnight 24 Hour Events: Patient received 2 u pRBC after Hb dropped to 8.6 from 9.8 and fainted during therapy Saturating at 98% on 3L NC lactated ringers lactated ringers 50 mL/hr at 01/03/22 1900 Urine output: 750 cc PHYSICAL EXAM BP 152/67 Pulse 99 Temp 98.4 ???F (36.9 ???C) (Axillary) Resp 18 Ht 5' 1 (1.549 m) Wt 131 lb 3 oz (59.5 kg) SpO2 100% BMI 24.79 kg/m??? General: NAD, awake/alert HEENT: NCAT CV: RRR Pulmonary: CTAB Abdomen: soft, non-distended and non-tender Musculoskeletal: left leg tender, mild +1 pitting edema bilaterally, motor and sensations intact. r thigh significantly larger than left thigh Neurological: awakes to voice, at baseline. LABORATORY RESULTS (LAST 24 HOURS) CBC/PT/INR WBC RBC Hgb Hct MCV RDW Plt PT aPTT INR 01/05/22 0150 9.5 2.06 6.2 17.6 86 14.1 77 01/05/22 0057 10.0 2.00 6.0 17.2 86 14.4 85 Basic Metabolic Panel Na K Cl CO2 Gap Glu BUN Cr Ca Mg PO4 01/05/22 005 131 3.7 98 25 12 154 30 0.96 7.9 IMAGING RESULTS (PERSONALLY REVIEWED) CXR: No new imaging today ASSESSMENT AND PLAN Diagnosis s/p Fall 12/31: recovering as expected from: - R femoral shaft fractrue - Acute blood loss anemia - Hyponatremia PMHx: CAD, CHF, HLD, HTN, DM, Afib on Eliquis Incidental Findings: None Plan: Neurological: - Continue tylenol 650 mg q4h - Continue Oxycodone 5 mg q4h PRN CV: - Monitor Vitals - Continue home metoprolol, lasix, atorvastatin - Hold Isosorbide for now - Hold Eliquis/plavix - Echo 01/01 with normal LV function and EF without significant valve abnormality. S/p 2 units overnight - Holding therapeutic anticoagulation Respiratory: - Saturating well on 3L NC - Bronchopulmonary Hygiene - Incentive Spirometer - Supplemental O2 PRN to target SpO2 92%. GI/Diet: - Diet: Regular - Bowel regimen: Colace, Senna - Zofran 4 mg q4h PRN for nausea - Continue PPI Renal: - HLIV - Cortes in place for: Beata-operative - Measure I AND O - Daily BMP, Mg, Phos. Replace Mg today (Maintain K >4, Phos >3, Mg >2) ID: - No indication for antibiotics at this time. Heme: - Patient was transfused 2 u pRBC overnight for low post-op Hb - Daily CBC Endocrine: - SSI, unclear if on DM meds at home MSK: - Progressive mobility protocol - PT/OT - NWB RLE PPx: - VTE - SCDs only. Hold chemoprophylaxis for OR in setting of Eliquis use - Stress ulcer - No GI ppx indicated Dispo: - Likely to SNF at [facility] Follow up: - Ortho (Dr. Sher) 2 weeks -follow up with pcp as well No need for f/u with us unless needed. Please contact 24/02 with questions and concerns related to the patient. (Pager: [phone]) Plan discussed with Dr. Bernal. Mila Weeks DO Teaching Physician Note: I saw and evaluated the patient. I personally obtained the cloud and critical portions of the history and physical exam. I reviewed the resident's documentation and discussed the patient with the resident and team on rounds. I agree with the medical decision making as documented in this note, which are reflective of the plans we discussed. Trauma Attending: Silviano Bernal MD Normal [facility] District Manager [employer] Authentication Interface Message Text 0230: Patient hgb low. First hgb 6.0, redraw 6.2. Trauma paged. Normal [facility] District Manager [employer] Authentication Interface Message Text 0129: This RN notified by core lab of critical H/H. This RN notified by core lab that results would be on hold until MD is notified and checked if a redraw would be considered. 0146: MD Chucky notified of critical Hemoglobin value of 6.0 and hematocrit of 17.2. MD chucky read back critical result. New orders received to redraw CBC at this time. Normal [facility] District Manager [employer] Authentication Interface Message Text 2330: Patient unable to void post cortes pull and was due to void at 2230. Patient bladder scanned for over 300 ml. Chucky MAYERS notified, straight cath ordered. Normal [facility] RED BLOOD CELL COMPONENTon 0 01-05-2022 BB ORDER ITEM Product status info to follow Normal [facility] [employer] [facility] Comment on above: Performed By: #### 8 [id number] #### NURSING GLUCOSE PROGRAM [address] [place] [address], [id number] BB Order Item Product status info to follow [facility] RED BLOOD CELL UNIT STATUSon 01-05-2022 BLOOD PRODUCT CODE [id number] Normal [facility] Comment on above: Performed By: #### C BC #### S PATHOLOGY LABORATORY [address] [place] [address], Performed By: #### 8 [id number] #### NURSING GLUCOSE PROGRAM [address] [place] [address], [address] BLOOD PRODUCT DESCRIPTION Red Blood Cells Normal [facility] Comment on above: Performed By: #### C BC #### S PATHOLOGY LABORATORY [address] [place] [address], Performed By: #### 8 [id number] #### NURSING GLUCOSE PROGRAM [address] [place] [address], [address] BLOOD PRODUCT STATUS Transfused Normal [facility] Comment on above: Performed By: #### C BC #### [facility] PATHOLOGY LABORATORY [address] [place] [address], Performed By: #### 8 [id number] #### NURSING GLUCOSE PROGRAM [address] [place] [address], BLOOD PRODUCT UNIT INFO [id number] Normal [facility] Comment on above: Performed By: #### C BC #### S PATHOLOGY LABORATORY [address] [place] [address], BLOOD PRODUCT UNIT INFO [id number] Normal [facility] Comment on above: Performed By: #### 8 [id number] #### NURSING GLUCOSE PROGRAM [address] [place] [address], BLOOD PRODUCT UNIT TYPE [id number] Normal [facility] Comment on above: Result Comment: A Po s Performed By: #### C BC #### S PATHOLOGY LABORATORY [address] [place] [address], Performed By: #### 8 [id number] #### NURSING GLUCOSE PROGRAM [address] [place] [address], [address] CROSSMATCH INTERPRETATION Compatible (E) Normal [facility] Comment on above: Performed By: #### C BC #### S PATHOLOGY LABORATORY [address] [place] [address], Performed By: #### 8 [id number] #### NURSING GLUCOSE PROGRAM [address] [place] [address], [address] TYPE AND SCREENon 01-05-2022 ABO and Rh group Nom (Bld) Blood group A Rh(D) positive Normal [facility] Comment on above: Result Comment: visi on Performed By: #### 8 [id number] #### NURSING GLUCOSE PROGRAM [address] [place], [address] ABSC INT Negative Normal [facility] Comment on above: Result Comment: visi on Performed By: #### 8 [id number] #### NURSING GLUCOSE PROGRAM [address] [place], [address] Blood group antibody screen Ql Negative [facility] Comment on above: vision [email or web address] BASIC METABOLIC PANELon 06-0 Anion gap [Moles/Vol] 14 mmol/L Normal 10-20 [facility] Comment on above: Performed By: #### 8 [id number] #### NURSING GLUCOSE PROGRAM [address] [place], [address] Calcium [Mass/Vol] 8.1 mg/dL Low 8.4-10.4 [facility] Comment on above: Performed By: #### 8 2948 #### NURSING GLUCOSE PROGRAM [address] [place], [address] Chloride [Moles/Vol] 100 mmol/L Normal 97-111 [facility] Comment on above: Performed By: #### 8 2948 #### NURSING GLUCOSE PROGRAM [address] [place], [address] CO2 [Moles/Vol] 22 mmol/L Normal 21-30 [facility] Comment on above: Performed By: #### 8 2948 #### NURSING GLUCOSE PROGRAM [address] [place], [address] Creatinine [Mass/Vol] 1.09 mg/dL Normal 0.50-1.10 [facility] Comment on above: Performed By: #### 8 2948 #### NURSING GLUCOSE PROGRAM [address] [place], [address] ESTIMATED GFR (CKD-EPI) 49 mL/min/1.73sqm Low >=60 [facility] Comment on above: Result Comment: 2020 CKD EPI Equation using Creatinine without Race Comment: Estimated glomerular filtration rate (eGFR) is calculated without a race coefficient. Values should be interpreted in the context of the patient's full clinical presentation. Reference: 1. Paulino Cho Baweja M, Dasha MCHUGH, et al.. A Unifying Approach for GFR Estimation: Recommendations of the NKF-ASN Task Force on Reassessing the Inclusion of Race in Diagnosing Kidney Disease. Swiss Journal of Kidney Diseases 202;79(2):268-88.e1. 2. N Engl J Med 1 Vol. 385 Issue 19 Pages 0228-5797 Performed By: #### 8 2948 #### NURSING GLUCOSE PROGRAM [address] [place], [address] Glucose [Mass/Vol] 150 mg/dL High 80-116 [email or web address] Comment on above: Performed By: #### 8 2948 #### NURSING GLUCOSE PROGRAM [address] [place], [address] Potassium [Moles/Vol] 4.2 mmol/L Normal 3.3-5.3 [email or web address] Comment on above: Result Comment: Hemo lysis present Performed By: #### 8 2948 #### NURSING GLUCOSE PROGRAM [address] [place], [address] Sodium [Moles/Vol] 132 mmol/L Low 135-148 [email or web address] Comment on above: Performed By: #### 8 2948 #### NURSING GLUCOSE PROGRAM [address] [place], [address] Urea nitrogen [Mass/Vol] 28 mg/dL High 8-22 [email or web address] Comment on above: Performed By: #### 8 2948 #### NURSING GLUCOSE PROGRAM [address] [place], [address] Basic metabolic 2000 panelon 01-04-2022 Anion gap [Moles/Vol] 14 mmol/L [facility] Calcium [Mass/Vol] 8.1 mg/dL Low 8.4 - 10. 4 mg/dL [facility] Chloride [Moles/Vol] 100 mmol/L 97 - 111 mmol/L [facility] CO2 [Moles/Vol] 22 mmol/L 21 - 30 mmol/L [facility] Creatinine [Mass/Vol] 1.09 mg/dL 0.50 - 1.10 mg/dL [facility] GFR/1.73 sq M.predicted MDRD (S/P/Bld) [Vol rate/Area] 49 mL/min/{1.73_m2} Low >=60 mL/min/1.73sqm [facility] Comment on above: 2020 CKD EPI Equatio n using Creatinine without Race Comment: Estimated glomerular filtration rate (eGFR) is calculated without a race coefficient. Values should be interpreted in the context of the patient's full clinical presentation. Reference: 1. Paulino Cho, Tyron M, Dasha MCHUGH, et al.. A Unifying Approach for GFR Estimation: Recommendations of the NKF-ASN Task Force on Reassessing the Inclusion of Race in Diagnosing Kidney Disease. [place] Journal of Kidney Diseases 202;79(2):268-88.e1. 2. N Engl J Med 2020 Vol. 385 Issue 19 Pages 2309-5455 Glucose [Mass/Vol] 150 mg/dL High 80 - 116 mg/dL [facility] Interpretation and review of laboratory results Abnormal [facility] Potassium [Moles/Vol] 4.2 mmol/L 3.3 - 5.3 mmol/L [facility] Comment on above: Hemolysis present Sodium [Moles/Vol] 132 mmol/L Low 135 - 148 mmol/L [facility] Urea nitrogen [Mass/Vol] 28 mg/dL High 8 - 22 mg/dL [facility] CBC panel Auto (Bld)on 01-04 Erythrocyte distribution width (RBC) [Ratio] 14.3 % 11.5 - 14.5 % [facility] Hematocrit (Bld) [Volume fraction] 24.7 % Low 36.0 - 46.0 % [facility] Hemoglobin (Bld) [Mass/Vol] 8.6 g/dL Low 12.0 - 15.0 g/dL [facility] Interpretation and review of laboratory results Abnormal [facility] MCH (RBC) [Entitic mass] 30.2 pg 26.0 - 34.0 pg [facility] MCHC (RBC) [Mass/Vol] 34.7 g/dL 32.0 - 35.9 g/dL [facility] MCV (RBC) [Entitic vol] 87 fL 80 - 100 fL [facility] Platelet mean volume (Bld) [Entitic vol] 9.8 fL 7.5 - 11.2 fL [facility] Platelets (Bld) [#/Vol] 76 10*3/uL Low 150 - 400 K/uL [facility] RBC (Bld) [#/Vol] 2.84 10*6/uL Low [facility] WBC (Bld) [#/Vol] 12.2 10*3/uL High 4.5 - 11.5 K/uL [facility] COMPLETE BLOOD COUNTon 01-04 Erythrocyte distribution width (RBC) [Ratio] 14.3 % Normal 11.5-14.5 [facility] Comment on above: Performed By: #### 8 2948 #### NURSING GLUCOSE PROGRAM [address] [place] [address], [address] Hematocrit (Bld) [Volume fraction] 24.7 % Low 36.0-46.0 [facility] Comment on above: Performed By: #### 8 2948 #### NURSING GLUCOSE PROGRAM [address] [place] [address], [address] Hemoglobin (Bld) [Mass/Vol] 8.6 g/dL Low 12.0-15.0 [facility] Comment on above: Performed By: #### 8 2948 #### NURSING GLUCOSE PROGRAM [address] [place] [address], [address] MCH (RBC) [Entitic mass] 30.2 pg Normal 26.0-34.0 [facility] Comment on above: Performed By: #### 8 2948 #### NURSING GLUCOSE PROGRAM [address] [place] [address], [address] MCHC (RBC) [Mass/Vol] 34.7 g/dL Normal 32.0-35.9 [facility] Comment on above: Performed By: #### 8 2948 #### NURSING GLUCOSE PROGRAM [address] [place] [address], [address] MCV (RBC) [Entitic vol] 87 fL Normal 80-100 [facility] Comment on above: Performed By: #### 8 2948 #### NURSING GLUCOSE PROGRAM [address] [place], [address] Platelet mean volume (Bld) [Entitic vol] 9.8 fL Normal 7.5-11.2 [facility] Comment on above: Performed By: #### 8 2948 #### NURSING GLUCOSE PROGRAM [address] [place] [address], [address] Platelets (Bld) [#/Vol] 76 10*3/uL Low 150-400 [facility] Comment on above: Performed By: #### 8 2948 #### NURSING GLUCOSE PROGRAM [address] [place], [address] RBC (Bld) [#/Vol] 2.84 10*6/uL Low 4.00-5.20 [facility] Comment on above: Performed By: #### 8 2948 #### NURSING GLUCOSE PROGRAM [address] [place], [address] WBC (Bld) [#/Vol] 12.2 10*3/uL High 4.5-11.5 [facility] Comment on above: Performed By: #### 8 2948 #### NURSING GLUCOSE PROGRAM [address] [place], [address] Care Plan Noteon 01-04-2022 District Manager [employer] Authentication Interface Message Text Problem: Routine Care: Goal: Patient care will be managed and maintained throughout hospital stay per unit specific routine care procedure Outcome: Progressing Rounding per floor protocol, call light in reach Problem: Impaired Mobility: Goal: Ability to tolerate increased activity will improve and be maintained Outcome: Progressing Problem: Activity Intolerance: Goal: Demonstrate progressive return to baseline activity level Outcome: Progressing Problem: VTE Prophylaxis: Goal: Will be free of DVT Outcome: Progressing SCDs, lovenox Problem: Fluid and Electrolyte Imbalance: Goal: Adequate fluid and electrolyte balance will be achieved and maintained Outcome: Progressing Problem: Anxiety: Goal: Level of anxiety will decrease Outcome: Progressing Problem: Acute Pain: Goal: Ability to identify pain intensity on a pain scale and rate it consistently will be achieved and maintained Outcome: Progressing Problem: Safety: Goal: Patient will remain free of falls during hospital stay Outcome: Progressing Educated pt on fall risk and prevention Problem: Discharge Planning: Goal: Discharge needs of the adult patient will be met Outcome: Progressing Normal [facility] [employer] [facility] EKG 12 LEAD - PERFORMon 06-0 Diagnosis Sinus rhythm with occasional Premature ventricular complexes Nonspecific ST and T wave abnormality Abnormal ECG When compared with ECG of 01-JAN-2022 00:52, No significant change was found Confirmed by VENUS BAUTISTA ([id number]) on 01/04/2022 7:16:58 AM [facility] P wave Atrium by EKG 80 BPM [facility] P wave axis 86 degrees [facility] P-R Interval 202 ms [facility] Q-T interval 394 ms [facility] Q-T interval corrected 454 ms [facility] QRS axis 8 degrees [facility] duration 80 ms [facility] T wave axis 106 degrees [facility] GLUCOSE, FINGERSTICK-IN OFFI CEon 01-04-2022 Glucose [Mass/Vol] 168 mg/dL High 80-116 [facility] Comment on above: Result Comment: Basilia toribio RN, APN, MD Performed By: #### 8 0357 #### NURSING GLUCOSE PROGRAM [address] [place] [address], [address] Glucose [Mass/Vol] 168 mg/dL High 80 - 116 mg/dL [facility] Comment on above: Notified MARIA FERNANDA ARTEAGA MD Interpretation and review of laboratory results Abnormal [facility] Glucose [Mass/Vol] 173 mg/dL High 80-116 [facility] Comment on above: Result Comment: Basilia toribio RN, APN, MD Performed By: #### 8 8743 #### NURSING GLUCOSE PROGRAM [address] [place] [address], [address] Glucose [Mass/Vol] 173 mg/dL High 80 - 116 mg/dL [facility] Comment on above: Notified MARIA FERNANDA ARTEAGA MD Interpretation and review of laboratory results Abnormal [facility] Glucose [Mass/Vol] 161 mg/dL High 80-116 [facility] Comment on above: Result Comment: Foll ow Protocol Performed By: #### 8 6924 #### NURSING GLUCOSE PROGRAM [address] [place] [address], [address] Glucose [Mass/Vol] 161 mg/dL High 80 - 116 mg/dL [facility] Comment on above: Follow Protocol Notified MARIA FERNANDA ARTEAGA MD Interpretation and review of laboratory results Abnormal [facility] Glucose [Mass/Vol] 155 mg/dL High 80-116 [facility] Comment on above: Performed By: #### 8 9311 #### NURSING GLUCOSE PROGRAM [address] [place] [address], [address] Glucose [Mass/Vol] 155 mg/dL High 80 - 116 mg/dL [facility] Interpretation and review of laboratory results Abnormal [facility] Glucose [Mass/Vol] 167 mg/dL High 80-116 [facility] Comment on above: Result Comment: Basilia toribio RN, APN, MD Performed By: #### 8 1092 #### NURSING GLUCOSE PROGRAM [address] [place] [address], [address] Progress Noteson 01-04-2022 District Manager [employer] Authentication Interface Message Text GENERAL INFORMATION --------- TRAUMA STAFF NOTE Patient Name: Toribio Betts Patient seen and examined on 01/04/2022 -------- INTERVAL HISTORY/EVENTS ------ Background: Toribio Betts???is a 86 year old???female???ariadna ht in by EMS as a transfer from [place]???following fall from standing on 12/31. She fell and her leg twisted under her. She is on Eliquis. ??? Hospital Course: 12/31/2021: S/p fall, patient was admitted to [facility] 01/01/2022: No acute events overnight 01/02/2022: POD 1, patient Hb dropped to 6.5 and was transfused 2 u pRBC 01/03/2022: Patient received 2 u pRBC and fainted during therapy ??? 24 Hour Events: Patient received 2 u pRBC after Hb dropped to 8.6 from 9.8 and fainted during therapy Saturating at 98% on 3L NC * lactated ringers * lactated ringers 50 mL/hr at 01/03/22 1900 Urine output: 750 cc PHYSICAL EXAM BP 117/35 (BP Location: right arm) Comment: RN notified Pulse 84 Temp 98.2 ???F (36.8 ???C) (Oral) Resp 16 Ht 5' 1 (1.549 m) Wt 131 lb 3 oz (59.5 kg) SpO2 98% BMI 24.79 kg/m??? General:???NAD, awake/alert HEENT:???NCAT CV: RRR Pulmonary:???CTAB Abdomen: soft, non-distended and non-tender Musculoskeletal:???l eft leg tender, mild +1 pitting edema bilaterally, motor and sensations intact, dressings in place on right thigh Neurological: GCS???15 ??? LABORATORY RESULTS (LAST 24 HOURS) CBC/PT/INR WBC RBC Hgb Hct MCV RDW Plt PT aPTT INR 01/04/22 0148 12.2 2.84 8.6 24.7 87 14.3 76 01/03/22 1357 11.0 3.21 9.8 27.8 86 14.2 87 Basic Metabolic Panel Na K Cl CO2 Gap Glu BUN Cr Ca Mg PO4 01/04/22 0148 132 4.2 Comment: Hemolysis present 100 22 14 150 28 1.09 8.1 IMAGING RESULTS (PERSONALLY REVIEWED) CXR: No new imaging today ASSESSMENT AND PLAN Diagnosis s/p???Fall 12/31: recovering as expected from: -???R femoral shaft fractrue - Acute blood loss anemia - Hyponatremia ? PMHx: CAD, CHF, HLD, HTN, DM, Afib on Eliquis ??? Incidental Findings:???None ??? Plan: Neurological: - Continue tylenol 650 mg q4h - Continue Oxycodone 2.5/5 mg q4h PRN - Continue dilaudid 02 mg q3h PRN for breakthrough pain ??? CV: -???Monitor Vitals -???Continue home metoprolol, lasix, atorvastatin -???Hold Isosorbide for now -???Hold Eliquis/plavix -???Echo 01/01 with normal LV function and EF without significant valve abnormality - Holding therapeutic anticoagulation ??? Respiratory: - Saturating well on 3L NC -???Bronchopulmonary Hygiene -???Incentive Spirometer -???Supplemental O2 PRN to target SpO2 92%. ??? GI/Diet: -???Diet: Regular -???Bowel regimen: Colace, Senna -???Zofran???4 mg q4h???PRN for nausea -???Continue PPI ??? Renal:??? -???HLIV - Cortes in place for:???Beata-operativ e -???Measure I AND O -???Daily BMP, Mg, Phos. Replace Mg today (Maintain K >4, Phos >3, Mg >2) ??? ID:??? -???No indication for antibiotics at this time. ??? Heme:??? -???Patient was transfused 2 u pRBC???overnight for low post-op Hb -???Daily CBC ? Endocrine:??? -???SSI, unclear if on DM meds at home ??? MSK:??? -???Progressive mobility protocol -???PT/OT??? -???NWB RLE ??? PPx: -???VTE -???SCDs only. Hold chemoprophylaxis for OR in setting of Eliquis use??? -???Stress ulcer???-???No GI ppx indicated ??? Dispo: - Likely to SNF at [facility] Follow up: - Ortho (Dr. Sher) 2 weeks -follow up with pcp as well No need for f/u with us unless needed. Please contact 24/02 with questions and concerns related to the patient. (Pager: [phone]) SCRIBE ATTESTATION 01/04/2022, 6:57 AM. This note is prepared by Daysi Marshall acting as Scribe for Silviano Bernal MD All medical record entries made by the Scribe were at my direction and personally dictated by me. I have reviewed the record and confirm that the note above accurately reflects all work, treatment, procedures, and medical decision making performed by MD Silviano Agee MD Normal [facility] [employer] [facility] BASIC METABOLIC PANELon 06-0 -2021 Anion gap [Moles/Vol] 14 mmol/L Normal 10-20 [facility] Comment on above: Performed By: #### C BC #### S PATHOLOGY LABORATORY [address] [place] [address], Calcium [Mass/Vol] 8.2 mg/dL Low 8.4-10.4 [email or web address] Comment on above: Performed By: #### C BC #### S PATHOLOGY LABORATORY [address] [place] [address], Chloride [Moles/Vol] 101 mmol/L Normal 97-111 [facility] Comment on above: Performed By: #### C BC #### S PATHOLOGY LABORATORY [address] [place] [address], CO2 [Moles/Vol] 22 mmol/L Normal 21-30 [facility] Comment on above: Performed By: #### C BC #### [facility] [address] [place] [address], Creatinine [Mass/Vol] 1.05 mg/dL Normal 0.50-1.10 [facility] Comment on above: Performed By: #### C BC #### S PATHOLOGY LABORATORY [address] [place] [address], ESTIMATED GFR (CKD-EPI) 51 mL/min/1.73sqm Low >=60 [facility] Comment on above: Result Comment: 2020 CKD EPI Equation using Creatinine without Race Comment: Estimated glomerular filtration rate (eGFR) is calculated without a race coefficient. Values should be interpreted in the context of the patient's full clinical presentation. Reference: 1. Paulino C, Tyron M, Dasha DC, et al.. A Unifying Approach for GFR Estimation: Recommendations of the NKF-ASN Task Force on Reassessing the Inclusion of Race in Diagnosing Kidney Disease. Swiss Journal of Kidney Diseases 202;79(2):268-88.e1. 2. N Engl J Med 1 Vol. 385 Issue 19 Pages 6683-3464 Performed By: #### C BC #### S PATHOLOGY LABORATORY [address] [place] [address], Glucose [Mass/Vol] 138 mg/dL High 80-116 [email or web address] Comment on above: Performed By: #### C BC #### S PATHOLOGY LABORATORY [address] [place] [address], Potassium [Moles/Vol] 4.0 mmol/L Normal 3.3-5.3 [email or web address] Comment on above: Performed By: #### C BC #### S PATHOLOGY LABORATORY [address] [place] [address], Sodium [Moles/Vol] 133 mmol/L Low 135-148 [email or web address] Comment on above: Performed By: #### C BC #### S PATHOLOGY LABORATORY [address] [place] [address], Urea nitrogen [Mass/Vol] 20 mg/dL Normal 8-22 [email or web address] Comment on above: Performed By: #### C BC #### S PATHOLOGY LABORATORY [address] [place] [address], Basic metabolic 2000 panelon 01-03-2022 Anion gap [Moles/Vol] 14 mmol/L [facility] Calcium [Mass/Vol] 8.2 mg/dL Low 8.4 - 10. 4 mg/dL [facility] Chloride [Moles/Vol] 101 mmol/L 97 - 111 mmol/L [facility] CO2 [Moles/Vol] 22 mmol/L 21 - 30 mmol/L [facility] Creatinine [Mass/Vol] 1.05 mg/dL 0.50 - 1.10 mg/dL [facility] GFR/1.73 sq M.predicted MDRD (S/P/Bld) [Vol rate/Area] 51 mL/min/{1.73_m2} Low >=60 mL/min/1.73sqm [facility] Comment on above: 2020 CKD EPI Equatio n using Creatinine without Race Comment: Estimated glomerular filtration rate (eGFR) is calculated without a race coefficient. Values should be interpreted in the context of the patient's full clinical presentation. Reference: 1. Paulino C, Tryon M, Dasha DC, et al.. A Unifying Approach for GFR Estimation: Recommendations of the NKF-ASN Task Force on Reassessing the Inclusion of Race in Diagnosing Kidney Disease. [employer] Journal of Kidney Diseases 202;79(2):268-88.e1. 2. N Engl J Med 2020 Vol. 385 Issue 19 Pages 0174-2494 Glucose [Mass/Vol] 138 mg/dL High 80 - 116 mg/dL [facility] Interpretation and review of laboratory results Abnormal [facility] Potassium [Moles/Vol] 4.0 mmol/L 3.3 - 5.3 mmol/L [facility] Sodium [Moles/Vol] 133 mmol/L Low 135 - 148 mmol/L [facility] Urea nitrogen [Mass/Vol] 20 mg/dL 8 - 22 mg/dL [facility] CBC panel Auto (Bld)Ordered By: Kathy Gomez on 01-03-2022 Erythrocyte distribution width (RBC) [Ratio] 14.2 % 11.5 - 14.5 % [facility] Hematocrit (Bld) [Volume fraction] 27.8 % Low 36.0 - 46.0 % [facility] Hemoglobin (Bld) [Mass/Vol] 9.8 g/dL Low 12.0 - 15.0 g/dL [facility] Interpretation and review of laboratory results Abnormal [facility] MCH (RBC) [Entitic mass] 30.5 pg 26.0 - 34.0 pg [facility] MCHC (RBC) [Mass/Vol] 35.3 g/dL 32.0 - 35.9 g/dL [facility] MCV (RBC) [Entitic vol] 86 fL 80 - 100 fL [facility] Platelet mean volume (Bld) [Entitic vol] 9.6 fL 7.5 - 11.2 fL [facility] Platelets (Bld) [#/Vol] 87 10*3/uL Low 150 - 400 K/uL [facility] RBC (Bld) [#/Vol] 3.21 10*6/uL Low [facility] WBC (Bld) [#/Vol] 11.0 10*3/uL 4.5 - 11.5 K/uL [facility] CBC panel Auto (Bld)on 01-03 Erythrocyte distribution width (RBC) [Ratio] 13.4 % 11.5 - 14.5 % [facility] Hematocrit (Bld) [Volume fraction] 19.6 % Critically low 36.0 - 46.0 % [facility] Hemoglobin (Bld) [Mass/Vol] 6.5 g/dL Critically low 12.0 - 15.0 g/dL [facility] Interpretation and review of laboratory results Abnormal [facility] MCH (RBC) [Entitic mass] 30.0 pg 26.0 - 34.0 pg [facility] MCHC (RBC) [Mass/Vol] 33.4 g/dL 32.0 - 35.9 g/dL [facility] MCV (RBC) [Entitic vol] 90 fL 80 - 100 fL [facility] Platelet mean volume (Bld) [Entitic vol] 9.6 fL 7.5 - 11.2 fL [facility] Platelets (Bld) [#/Vol] 104 10*3/uL Low 150 - 400 K/uL [facility] RBC (Bld) [#/Vol] 2.18 10*6/uL Low [facility] WBC (Bld) [#/Vol] 11.5 10*3/uL 4.5 - 11.5 K/uL [facility] CBC panel Auto (Bld)Ordered By: Norma Taylor on 01-03-2022 Erythrocyte distribution width (RBC) [Ratio] 13.1 % 11.5 - 14.5 % [facility] Hematocrit (Bld) [Volume fraction] 19.3 % Critically low 36.0 - 46.0 % [facility] Hemoglobin (Bld) [Mass/Vol] 6.7 g/dL Critically low 12.0 - 15.0 g/dL [facility] Interpretation and review of laboratory results Abnormal [facility] MCH (RBC) [Entitic mass] 31.2 pg 26.0 - 34.0 pg [facility] MCHC (RBC) [Mass/Vol] 34.9 g/dL 32.0 - 35.9 g/dL [facility] MCV (RBC) [Entitic vol] 89 fL 80 - 100 fL [facility] Platelet mean volume (Bld) [Entitic vol] 9.7 fL 7.5 - 11.2 fL [facility] Platelets (Bld) [#/Vol] 108 10*3/uL Low 150 - 400 K/uL [facility] RBC (Bld) [#/Vol] 2.16 10*6/uL Low [facility] WBC (Bld) [#/Vol] 11.1 10*3/uL 4.5 - 11.5 K/uL [facility] COMPLETE BLOOD COUNTon 01-03 Erythrocyte distribution width (RBC) [Ratio] 14.2 % Normal 11.5-14.5 [facility] Comment on above: Performed By: #### A KHRIS #### [facility] PATHOLOGY LABORATORY [address] [place] [address], Hematocrit (Bld) [Volume fraction] 27.8 % Low 36.0-46.0 [facility] Comment on above: Performed By: #### A KHRIS #### [facility] [address] [place] [address], Hemoglobin (Bld) [Mass/Vol] 9.8 g/dL Low 12.0-15.0 [facility] Comment on above: Performed By: #### A KHRIS #### [facility] [address] [place] [address], MCH (RBC) [Entitic mass] 30.5 pg Normal 26.0-34.0 [facility] Comment on above: Performed By: #### A KHRIS #### [facility] [address] [place] [address], MCHC (RBC) [Mass/Vol] 35.3 g/dL Normal 32.0-35.9 [facility] Comment on above: Performed By: #### A KHRIS #### [facility] [address] [place] [address], MCV (RBC) [Entitic vol] 86 fL Normal 80-100 [facility] Comment on above: Performed By: #### A KHRIS #### [facility] [address] [place] [address], Platelet mean volume (Bld) [Entitic vol] 9.6 fL Normal 7.5-11.2 [facility] Comment on above: Performed By: #### A KHRIS #### [facility] [address] [place] [address], Platelets (Bld) [#/Vol] 87 10*3/uL Low 150-400 [facility] Comment on above: Performed By: #### A KHRIS #### [facility] [address] [place] [address], RBC (Bld) [#/Vol] 3.21 10*6/uL Low 4.00-5.20 [facility] Comment on above: Performed By: #### A KHRIS #### [facility] [address] [place] [address], WBC (Bld) [#/Vol] 11.0 10*3/uL Normal 4.5-11.5 [facility] Comment on above: Performed By: #### Vianney PINEDO #### [facility] [address] [place] [address], Erythrocyte distribution width (RBC) [Ratio] 13.4 % Normal 11.5-14.5 [facility] Comment on above: Performed By: #### 8 2948 #### [facility] [address] [place] [address], Hematocrit (Bld) [Volume fraction] 19.6 % Critically low 36.0-46.0 [facility] Comment on above: Performed By: #### 8 2948 #### [facility]UCO[facility] [address] [place] [address], Hemoglobin (Bld) [Mass/Vol] 6.5 g/dL Critically low 12.0-15.0 [facility] Comment on above: Performed By: #### 8 2948 #### [facility] GLUCOSE PROGRAM [address] [place] [address], MCH (RBC) [Entitic mass] 30.0 pg Normal 26.0-34.0 [facility] Comment on above: Performed By: #### 8 2948 #### NURSING GLUCOSE PROGRAM [address] [place], [address] MCHC (RBC) [Mass/Vol] 33.4 g/dL Normal 32.0-35.9 [facility] Comment on above: Performed By: #### 8 2948 #### [facility] GLUCOSE [facility] [address] [place], [address] MCV (RBC) [Entitic vol] 90 fL Normal 80-100 [facility] Comment on above: Performed By: #### 8 2948 #### [facility]URSING GLUCOSE PROGRAM [address] [place], [address] Platelet mean volume (Bld) [Entitic vol] 9.6 fL Normal 7.5-11.2 [facility] Comment on above: Performed By: #### 8 2948 #### NURSING GLUCOSE PROGRAM [address] [place], [address] Platelets (Bld) [#/Vol] 104 10*3/uL Low 150-400 [facility] Comment on above: Performed By: #### 8 2948 #### NURSING GLUCOSE PROGRAM [address] [place], [address] RBC (Bld) [#/Vol] 2.18 10*6/uL Low 4.00-5.20 [facility] Comment on above: Performed By: #### 8 2948 #### NURSING GLUCOSE PROGRAM [address] [place], [address] WBC (Bld) [#/Vol] 11.5 10*3/uL Normal 4.5-11.5 [facility] Comment on above: Performed By: #### 8 2948 #### NURSING GLUCOSE PROGRAM [address] [place], [address] Erythrocyte distribution width (RBC) [Ratio] 13.1 % Normal 11.5-14.5 [facility] Comment on above: Performed By: #### C BC ####[facility] [id number] [place], [place], Hematocrit (Bld) [Volume fraction] 19.3 % Critically low 36.0-46.0 [facility] Comment on above: Performed By: #### C BC ####[facility] [id number] [place], [place], Hemoglobin (Bld) [Mass/Vol] 6.7 g/dL Critically low 12.0-15.0 [facility] Comment on above: Performed By: #### C BC ####[facility] [id number] [place], [place], MCH (RBC) [Entitic mass] 31.2 pg Normal 26.0-34.0 [facility] Comment on above: Performed By: #### C BC ####[facility] [id number] [place] [address], MCHC (RBC) [Mass/Vol] 34.9 g/dL Normal 32.0-35.9 [facility] Comment on above: Performed By: #### C BC ####[facility] [id number] [place] [address], MCV (RBC) [Entitic vol] 89 fL Normal 80-100 [facility] Comment on above: Performed By: #### C BC ####[facility] [id number] [place] [address], Platelet mean volume (Bld) [Entitic vol] 9.7 fL Normal 7.5-11.2 [facility] Comment on above: Performed By: #### C BC ####[facility] [id number] [place] [address], Platelets (Bld) [#/Vol] 108 10*3/uL Low 150-400 [facility] Comment on above: Performed By: #### C BC ####[facility] [id number] [place] [address], RBC (Bld) [#/Vol] 2.16 10*6/uL Low 4.00-5.20 [facility] Comment on above: Performed By: #### C BC ####[facility] [id number] [place] [address], WBC (Bld) [#/Vol] 11.1 10*3/uL Normal 4.5-11.5 [facility] Comment on above: Performed By: #### C BC ####[facility] [id number] [place] [address], [phone] Care Plan Noteon 01-03-2022 District Manager [employer] Authentication Interface Message Text Problem: Routine Care: Goal: Patient care will be managed and maintained throughout hospital stay per unit specific routine care procedure Outcome: Progressing Rounding per floor protocol, call light in reach Problem: Impaired Mobility: Goal: Ability to tolerate increased activity will improve and be maintained Outcome: Progressing PT/OT Problem: Activity Intolerance: Goal: Demonstrate progressive return to baseline activity level Outcome: Progressing PT/OT Problem: VTE Prophylaxis: Goal: Will be free of DVT Outcome: Progressing SCDs, lovenox Problem: Fluid and Electrolyte Imbalance: Goal: Adequate fluid and electrolyte balance will be achieved and maintained Outcome: Progressing Problem: Anxiety: Goal: Level of anxiety will decrease Outcome: Progressing Problem: Acute Pain: Goal: Ability to identify pain intensity on a pain scale and rate it consistently will be achieved and maintained Outcome: Progressing Problem: Safety: Goal: Patient will remain free of falls during hospital stay Outcome: Progressing Educated pt on fall risk and prevention Problem: Discharge Planning: Goal: Discharge needs of the adult patient will be met Outcome: Progressing Normal [facility] EMS Documentationon 01-04-20 22 EMS Documentation [id number] #[id number]:127 Normal [facility] GLUCOSE, FINGERSTICK-IN OFFI CEon 01-03-2022 Glucose [Mass/Vol] 167 mg/dL High 80 - 116 mg/dL [facility] Comment on above: Notified MARIA FERNANDA ARTEAGA MD Interpretation and review of laboratory results Abnormal [facility] Glucose [Mass/Vol] 189 mg/dL High 80-116 [email or web address] Comment on above: Performed By: #### 8 2948 #### NURSING GLUCOSE PROGRAM [address] [place], [address] Glucose [Mass/Vol] 189 mg/dL High 80 - 116 mg/dL [facility] Interpretation and review of laboratory results Abnormal [facility] Glucose [Mass/Vol] 189 mg/dL High 80-116 [email or web address] Comment on above: Performed By: #### 8 2948 #### NURSING GLUCOSE PROGRAM [address] [place], [address] Glucose [Mass/Vol] 189 mg/dL High 80 - 116 mg/dL [facility] Interpretation and review of laboratory results Abnormal [facility] Glucose [Mass/Vol] 157 mg/dL High 80-116 [facility] Comment on above: Performed By: #### A KHRIS #### S PATHOLOGY LABORATORY [address] [place], [place], Glucose [Mass/Vol] 157 mg/dL High 80 - 116 [facility] Interpretation and review of laboratory results Abnormal [facility] Glucose [Mass/Vol] 141 mg/dL High 80-116 [facility] Comment on above: Performed By: #### C BC #### [facility] [address] [place], [place], MAGNESIUMon 01-03-2022 Magnesium [Mass/Vol] 1.7 mg/dL Normal 1.6-2.8 [facility] Comment on above: Performed By: #### C MICHAELA #### [facility] [address] [place], [place], Interpretation and review of laboratory results Normal [facility] Magnesium [Mass/Vol] 1.7 mg/dL 1.6 - 2.8 mg/dL [facility] No Panel Informationon 01-03 [facility] PHOSPHORUSon 01-03-2022 Phosphate [Mass/Vol] 3.8 mg/dL Normal 2.3-4.2 [facility] Comment on above: Performed By: #### C BC #### [facility] [address] [place], [place], Interpretation and review of laboratory results Normal [facility] Phosphate [Mass/Vol] 3.8 mg/dL 2.3 - 4.2 mg/dL [facility] Progress Noteson 01-03-2022 District Manager Major Accounts Sales Authentication Interface Message Text SW aware of pottery decorator screen yield for pt has ADs, paper copy not with pt. SW met with pt at bedside, pt confirms having POA and LW. Per pt, POA is: sina Tim [phone] Pt/family educated to bring a copy of documents in to be placed on file in medical record if able, expressed understanding. SW aware that patient meets criteria for SNF. Met with pt and sons Terry and Freddie on unit to discuss dispo. Patient open and agreeable to SNF placement. CM/SW provided pt and son the quality and resource use measure data from available post-acute (PAC) providers, that best align with the patient's treatment goals and preferences from the medicare.gov compare site for SNF. 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 For SNF: RN/MD to complete [employer]. Signature page placed on patient's chart for MD signature. Pt will require a pre-cert/LOC. Referral sent to [facility] per family request. SW will continue to follow. Radha Cox [facility] [phone] Normal [facility] Interface Message Text 01/03/22 0950 01/03/22 0952 01/03/22 0953 Vital Signs Heart Rate 88 -- -- BP 87/32 89/27 97/30 MAP (mmHg) 45 mmHg 41 mmHg 46 mmHg BP Position Semi-Fowlers Semi-Fowlers Semi-Fowlers 01/03/22 0955 Vital Signs Heart Rate 82 BP 94/33 MAP (mmHg) 47 mmHg BP Position Lying RN called to room by PT. Patient had episode of LOC while sitting on side of bed with Right upward eye drift. Patient returned to semi-fowlers position and vitals obtained above. Patient A AND Ox3 with baseline word-finding. Dr. Ta notified-RN to obtain EKG. EKG obtained. Dr. Ta at bedside. Normal [facility] Interface Message Text GENERAL INFORMATION --------- TRAUMA STAFF NOTE Patient Name: Toribio Betts Patient seen and examined on 01/03/2022 -------- INTERVAL HISTORY/EVENTS ------ Background: Toribio Betts???is a 86 year old???female???broug ht in by EMS as a transfer from [facility]???following fall from standing. She fell and her leg twisted under her. She is on Eliquis. ??? Hospital Course: 12/31/2021: S/p fall, patient was admitted to [facility] 01/01/2022: No acute events overnight 01/02/2022: POD 1, patient Hb dropped to 6.5 and was transfused 2 u pRBC 24 Hour Events: Hb dropped to 6.5, received 2 u pRBC, patient is also slight oliguric. Saturating at 94% on 3L NC * lactated ringers * lactated ringers Stopped (01/03/22 0405) Urine output: 750 cc Blood: 100 cc PHYSICAL EXAM BP 111/31 Pulse 81 Temp 98.4 ???F (36.9 ???C) (Oral) Resp 16 Ht 5' 1 (1.549 m) Wt 131 lb 3 oz (59.5 kg) SpO2 94% BMI 24.79 kg/m? General:???NAD, awake/alert HEENT:???NCAT CV: mild tachycardia Pulmonary:???nonlabo red??? Abdomen: soft, non-distended and non-tender Musculoskeletal:???l eft leg tender??? Neurological: GCS???15 ??? LABORATORY RESULTS (LAST 24 HOURS) CBC/PT/INR WBC RBC Hgb Hct MCV RDW Plt PT aPTT INR 01/03/22 0312 11.5 2.18 6.5 19.6 90 13.4 104 01/03/22 0222 11.1 2.16 6.7 19.3 89 13.1 108 Basic Metabolic Panel Na K Cl CO2 Gap Glu BUN Cr Ca Mg PO4 01/03/22221 1.7 01/03/22221 3.8 01/03/22221 133 4.0 101 22 14 138 20 1.05 8.2 IMAGING RESULTS (PERSONALLY REVIEWED) CXR: No new imaging today ASSESSMENT AND PLAN Diagnosis s/p???Fall 12/31: -???R femoral shaft fractrue - Acute blood loss anemia - Hyponatremia ??? PMHx: CAD, CHF, HLD, HTN, DM, Afib on Eliquis ??? Incidental Findings:???None ??? Plan: Neurological: - Continue tylenol 650 mg q4h - Continue Oxycodone 2.5/5 mg q4h PRN - Continue dilaudid 02 mg q3h PRN for breakthrough pain ??? CV: -???Monitor Vitals -???Continue home metoprolol, lasix, atorvastatin -???Hold Isosorbide for now -???Hold Eliquis/plavix for procedure -???Echo 01/01 with normal LV function and EF without significant valve abnormality ??? Respiratory: - Saturating well on 3L NC -???Bronchopulmonary Hygiene -???Incentive Spirometer -???Supplemental O2 PRN to target SpO2 92%. ??? GI/Diet: -???Diet: -???Bowel regimen: Colace, Senna -???Zofran???4 mg q4h???PRN for nausea -???Continue PPI ??? Renal:??? -???mIVF - Cortes in place for:???Beata-operativ e -???Measure I AND O -???Daily BMP, Mg, Phos. Replace Mg today (Maintain K >4, Phos >3, Mg >2) ??? ID:??? -???No indication for antibiotics at this time. ??? Heme:??? -???Patient was transfused 2 u pRBC???overnight for low post-op Hb -???Daily CBC ? Endocrine:??? -???SSI, unclear if on DM meds at home ??? MSK:??? -???Progressive mobility protocol -???PT/OT??? -???NWB RLE ??? PPx: -???VTE -???SCDs only. Hold chemoprophylaxis for OR in setting of Eliquis use??? -???Stress ulcer???-???No GI ppx indicated ??? Dispo: - Remain on RNF Please contact 24/02 with questions and concerns related to the patient. (Pager: [phone]) SCRIBE ATTESTATION 01/03/2022, 7:02 AM. This note is prepared by Daysi Marshall acting as Scribe for Megan Ta MD. All medical record entries made by the Scribe were at my direction and personally dictated by me. I have reviewed the record and confirm that the note above accurately reflects all work, treatment, procedures, and medical decision making performed by Megan Ta MD. Normal The [employer] Authentication Interface Message Text Trauma resident research associate quality control qc notified of low urine output. Also notified that pt lost IV access during blood administration, attempting to get IV access at this time. Will continue to monitor. Normal [facility] [employer] Authentication Interface Message Text Dr. Flores notified of critical Hemoglobin and Hematocrit values of 6.[address] Flores read back critical result. New orders received. 0340 - Dr. Flores notified of critical Hemoglobin and hematrocrit values of 6.[address] Flores read back critical result. New orders received. Normal [facility] RED BLOOD CELL COMPONENTon 0 01-03-2022 BB ORDER ITEM Product status info to follow Normal The [facility] Comment on above: Performed By: #### 8 2948 #### NURSING GLUCOSE PROGRAM [address] [place] [address], [address] BB Order Item Product status info to follow [facility] RED BLOOD CELL UNIT STATUSon 01-03-2022 BLOOD PRODUCT CODE [id number] Normal [facility] Comment on above: Performed By: #### Vianney PINEDO #### S PATHOLOGY LABORATORY [address] [place] [address], Performed By: #### 8 2948 #### NURSING GLUCOSE PROGRAM [address] [place] [address], [address] BLOOD PRODUCT DESCRIPTION Red Blood Cells Normal [facility] Comment on above: Performed By: #### A KHRIS #### S PATHOLOGY LABORATORY [address] [place] [address], Performed By: #### 8 2948 #### NURSING GLUCOSE PROGRAM [address] [place] [address], [address] BLOOD PRODUCT STATUS Transfused Normal [facility] Comment on above: Performed By: #### Vianney PINEDO #### S PATHOLOGY LABORATORY [address] [place] [address], Performed By: #### 8 2948 #### NURSING GLUCOSE PROGRAM [address] [place] [address], [address] BLOOD PRODUCT UNIT INFO [id number] Normal [facility] Comment on above: Performed By: ###Cathy PINEDO #### S PATHOLOGY LABORATORY [address] [place] [address], BLOOD PRODUCT UNIT INFO [id number] Normal [facility] Comment on above: Performed By: #### 8 2948 #### NURSING GLUCOSE PROGRAM [address] [place] [address], [address] BLOOD PRODUCT UNIT TYPE 6200 Normal [facility] Comment on above: Result Comment: A Po s Performed By: #### A KHRIS #### S PATHOLOGY LABORATORY [address] [place] [address], Performed By: #### 8 2948 #### NURSING GLUCOSE PROGRAM [address] [place] [address], [address] CROSSMATCH INTERPRETATION Compatible (E) Normal [facility] Comment on above: Performed By: #### A KHRIS #### S PATHOLOGY LABORATORY [address] [place], [address] Performed By: #### 8 2948 #### NURSING GLUCOSE PROGRAM [address] [place], [address] TRANSFUSE RED CELLSon 2021 [facility] Anesthesia Attestationon District Manager Major Accounts Sales Authentication Interface Message Text Anesthesia Attestation ATTESTATION OF INFORMED CONSENT FOR ANESTHESIA Anesthesia options were discussed with the patient and/or legal sales representative adding machines. The risks, benefits and alternatives were reviewed. Questions regarding anesthesia were answered. Patient and/or legal sales representative adding machines knows such anesthetics and procedures may be performed by Resident physicians, Certified Anesthesiologist Assistants, or Certified Nurse Anesthetists under the supervision of a physician. The patient /or the patient's legal sales representative adding machines agree with the plan for anesthesia. Normal [facility] Anesthesia Postprocedure Gladis luationon 01-02-2022 District Manager Major Accounts Sales Authentication Interface Message Text Anesthesia Postoperative Assessment: Vital Signs (most recent): BP 104/47 Pulse 72 Temp 36.7 ???C (98.1 ???F) (Oral) Resp 12 Ht 5' 1 (1.549 m) Wt 131 lb 3 oz (59.5 kg) SpO2 98% BMI 24.79 kg/m??? Anesthesia Post Evaluation Patient location during evaluation: PACU Patient participation: complete - patient participated Level of consciousness: awake and alert Pain management: adequate Airway patency: patent Cardiovascular status: acceptable Respiratory status: acceptable Hydration status: normal PONV: No nausea/vomiting reported I was personally responsible for performing the postop evaluation. ANESTHESIA COMPLICATIONS: No complications documented. Normal [facility] Anesthesia Preprocedure Eval uationon 01-02-2022 District Manager Major Accounts Sales Authentication Interface Message Text ASA: 3 Past Medical History and Review of Systems Pulmonary - negative ROS Dental - negative ROS Endo - negative ROS Neuro/Psych - negative ROS Cardiovascular (+) hypertension, CAD, CHF, GI/Hepatic/Renal (-) no GERD Heme/Other (+) anticoagulation therapy, Physical Exam Airway Mallampati: II TM distance: Adequate Micrognathia: Not present Jaw opening: Adequate Neck flexion: Adequate Dental PE (+) intact Pulmonary - pulmonary exam normal Comment: Chest clear to auscultation bilaterally Cardiovascular - cardiovascular exam normal Comment: RRR with S1S2; no murmurs, gallops, or rubs Neuro - neurological exam normal Comment: Awake, alert, oriented, No motor deficits and sensation grossly intact Plan Anesthesia plan: general (ETT) Medications may include (but not limited to): anxiolytics, narcotic analgesics, IV hypnotics, neuromuscular blockers and inhalational analgesics Pain management: May include (but not limited to): anxiolytics and narcotic analgesics Anesthesia risks / alternatives discussed pre-op Questions answered / anesthesia plan accepted Past medical history, surgical history, allergies, and medications reviewed. Pertinent laboratory tests, EKG, imaging, and consults reviewed and I have personally seen and evaluated the patient, repeating cloud portions of the history and physical examination. Normal [facility] Anesthesia Transfer Of Careo n 01-02-2022 District Manager Major Accounts Sales Authentication Interface Message Text Patient taken to PACU. Patient was drowsy, comfortable and hypotensive, phenylephrine given and RN will continue to monitor on arrival. Anesthesia Transfer of Care Note Past Medical History: History reviewed. No pertinent past medical history. Sleep Apnea/Positive STOP-BANG: No Problem List: Patient Active Problem List: Other fracture of right femur, initial encounter for closed fracture (HCC) [S72.8X1A] Past Surgical History: There is no previous surgical history on file. Allergies: Pravastatin Basic Operating Room Facts: Surgeon(s): Eric Sher MD Anesthesiologist: Davide Mcintosh DO CAA: Henrique Quijano CAA U.S. REPRESENTATIVE: Erika Islas, SERGEANT MISSILE CREWMAN-U.S. REPRESENTATIVE REDUCTION, OPEN, FEMUR, INTRAMEDULLARY JAC (Right ) Intraoperative Events: Hypotension and Hypertension ASA: 3 EBL: 100 mL Urine Not documented Lactated Ringers and NaCl 0.9%: Fluid Totals (Filter: LR and NaCl 0.9% Medications Shown) Medication Calculated Total Lactated Ringers 800 mL / 1 bag Cell Saver: Not documented Blood Volume Values: Blood Products None MTP Blood: MTP PRBC: Not documented MTP FFP: Not documented MTP PLT: Not documented MTP Cryo: Not documented MTP Whole Blood: Not documented Current Vasoactive Medications: {Vasoactive Medications: bolus of phenylephrine Lines, Drains, Airways Peripheral IV Access: 01/01/22 0101 20 gauge Right Forearm (Active) Site Assessment WNL;Dressing intact 01/01/222007 Infusion Status Port #1 Capped;Patent 01/01/222007 Peripheral IV Access: 01/01/22 0101 22 gauge Left Forearm Present on Arrival to Hospital (Active) Site Assessment WNL;Dressing intact 01/01/222007 Infusion Status Port #1 Infusing;Patent 01/01/222007 Airway Insertion Details [REMOVED] Advanced Airway: ETT, Oral;Cuffed #6.5 (Removed) 01/02/22 1021 Pre-Oxygenation/ Induction: Mask Rapid Sequence Induction?: Mask Ventilation: Easy Blade size: Mac 3 Visualization: Grade 1 Airway Type: ETT, Oral;Cuffed Airway Size: #6.5 Post Insertion Assessment: Confirmation: Equal bilateral breath sounds, CO2 confirmed # Attempts >1: Special Equipment: Present on Admission?: Previously Removed / Not Present: Removal Reason: Not Removed at Discharge: Removed 01/02/22 1157 Location (cm) 21 01/02/22 1021 Measured from: Lips 01/02/22 1021 Secured via: Taped 01/02/22 1021 Site Assessment WNL 01/02/22 1021 All non-working IVs have been removed: N/A Laboratory Data: CBC (last 3 years, up to 5 values) WBC RBC Hgb Hct MCV RDW Plt 01/01/22 0618 9.6 3.59 11.1 32.5 91 13.3 133 Basic Metabolic Panel Na K Cl CO2 Gap Glu BUN Cr Ca 01/01/22 0618 138 3.9 102 26 14 160 13 0.67 8.8 Basic Metabolic Panel Na K Cl CO2 Gap Glu BUN Cr Ca Mg PO4 01/01/22 0618 1.9 01/01/22 0618 3.6 01/01/22 0618 138 3.9 102 26 14 160 13 0.67 8.8 INR (no units) Date Value 01/01/2022 1.27 (H) No result for BNP LFT's (last 3 years, up to 5 values) None Arterial Blood Gases None Hand off Completed: Yes 1. The patient was identified. 2. Pertinent medical history was relayed. 3. A brief discussion was had about any pertinent surgical/ procedural issues. 4. Intraoperative/ anesthetic management issue and concerns were discussed. 5. Plans for the early post-operative period relayed. 6. An opportunity for questions and acknowledgment of understanding of the report was received. Erika Islas APRN-U.S. REPRESENTATIVE Normal [facility] [employer] [facility] Blood Attestationon 01-03-20 District Manager Major Accounts Sales Authentication Interface Message Text Blood Attestation ATTESTATION OF INFORMED CONSENT FOR BLOOD The transfusion of blood and/or blood components were discussed with the patient and/or legal sales representative adding machines. The risks, benefits and alternatives were reviewed. Questions regarding blood transfusions were answered. The patient /or the patient's legal sales representative adding machines agree with the plan for transfusion of blood and/or blood components. Normal [facility] [employer] [facility] Brief Operative Noteon 01-02 District Manager Major Accounts Sales Authentication Interface Message Text Brief Operative Note MAIN OR 08 Toribio Betts 86 year old female Surgical Contact Serial Number: [id number] Preoperative Diagnosis: Other fracture of right femur, initial encounter for closed fracture (HCC) [S72.8X1A] Postoperative Diagnosis: * Other fracture of right femur, initial encounter for closed fracture (HCC) [S72.8X1A] Procedures: Surgical CPTs Procedures * OPEN TREATMENT, FEMORAL SHAFT FRACTURE, W/INSERTION, INTRAMEDULLARY IMPLANT, W/WO SCREW/CERCLAGE No data filed Surgeon(s): Surgeon(s): Eric Sher MD Staff: Scrub: Christine Matson Pretzel Twisting Machine Operator Nurse: Heather Pedroza RN Retail Selling Floor Leader: Lety Clarke Resident Physician In Radiology: Joselito Patel MD; Salma Mae MD Anesthesia: General Anesthesiologist: Davide Mcintosh DO CAA: Henrique Quijano CAA U.S. REPRESENTATIVE: Erika Islas APRN-CRNA Specimen(s): * No specimens in log * Estimated Blood Loss: greater than 10 cc -- Esitmated Amount: 100 Lines/Drains: Peripheral IV Access: 01/01/22 010 20 gauge Right Forearm (Active) Site Assessment WNL;Dressing intact 01/01/222007 Infusion Status Port #1 Capped;Patent 01/01/222007 Peripheral IV Access: 01/01/22 0101 22 gauge Left Forearm Present on Arrival to Hospital (Active) Site Assessment WNL;Dressing intact 01/01/222007 Infusion Status Port #1 Infusing;Patent 01/01/222007 Temporarily Retained Foreign Object: No Findings: Ortho Fracture Complications: None Status at end of surgery: Stable Activity: weight bearing as tolerated Surgical wound class: Yes, wound was clean. Patient Class: Inpatient. Is this a patient scheduled as an outpatient that needs to be admitted as an inpatient? No Dr. Sher was present in the OR for the critical portion of the procedure and procedure sign-out. Ortho Postop Plan WBAT RLE 24h ancef DVT ppx per primary recommend 6 week course Aquacel dressing until POD7 Follow up in [address] Sher Signed by Joselito Patel MD 01/02/2022 11:51 AM Normal [facility] [employer] [facility] Care Plan Noteon 01-02-2022 District Manager Major Accounts Sales Authentication Interface Message Text Problem: Routine Care: Goal: Patient care will be managed and maintained throughout hospital stay per unit specific routine care procedure Outcome: Progressing Note: Hourly rounding performed. Problem: Impaired Mobility: Goal: Ability to tolerate increased activity will improve and be maintained Outcome: Progressing Note: Angelo scale interventions in place. Problem: Activity Intolerance: Goal: Demonstrate progressive return to baseline activity level Outcome: Progressing Note: PT/OT ordered. Problem: VTE Prophylaxis: Goal: Will be free of DVT Outcome: Progressing Note: SCDs and Lovenox ordered. Problem: Fluid and Electrolyte Imbalance: Goal: Adequate fluid and electrolyte balance will be achieved and maintained Outcome: Progressing Note: Continuous IVF ordered. Problem: Anxiety: Goal: Level of anxiety will decrease Outcome: Progressing Note: Calming techniques used during Pt care. Problem: Acute Pain: Goal: Ability to identify pain intensity on a pain scale and rate it consistently will be achieved and maintained Outcome: Progressing Note: Numeric pain scale in use. Problem: Safety: Goal: Patient will remain free of falls during hospital stay Outcome: Progressing Note: High risk falls interventions in place. Problem: Discharge Planning: Goal: Discharge needs of the adult patient will be met Outcome: Progressing Note: SNF pending medical clearance. Normal [facility] [employer] [facility] Consultson 01-02-2022 District Manager Major Accounts Sales Authentication Interface Message Text PHYSICAL THERAPY Continue to follow this Patient who is currently in OR for Fixation of (R) Femoral Shaft Fx Will HOLD PT Eval at this time and follow up post-operatively. Report to follow. Cecelia Stiles, PT, MPT (B) [phone] Normal [facility] [employer] [facility] District Manager Major Accounts Sales Authentication Interface Message Text Occupational Therapy Per chart review, pt was cleared for OR for CMN R femur with Dr. Fierro by trauma team on 01/01/22. Pt planning for OR this date. Will hold OT eval until post-op. Mari Hung, OTR/L Normal [facility] GLUCOSE, FINGERSTICK-IN OFFI CEon 01-02-2022 Glucose [Mass/Vol] 141 mg/dL High 80 - 116 mg/dL [facility] Interpretation and review of laboratory results Abnormal [facility] Glucose [Mass/Vol] 160 mg/dL High 80-116 [facility] Comment on above: Performed By: #### 8 [id number] ####NURSING GLUCOSE [id number] [place], [address] Glucose [Mass/Vol] 160 mg/dL High 80 - 116 mg/dL [facility] Interpretation and review of laboratory results Abnormal [facility] Glucose [Mass/Vol] 116 mg/dL Normal 80-116 [facility] Comment on above: Performed By: #### 8 2948 ####NURSING GLUCOSE [id number] [place], [address] Glucose [Mass/Vol] 116 mg/dL 80 - 116 mg/dL [facility] Interpretation and review of laboratory results Normal [facility] OP Noteon 01-02-2022 District Manager Major Accounts Sales Authentication Interface Message Text Name: TORIBIO BETTS MR#: [id number] ENC#: [id number] Date of Procedure: 01/02/2022 ATTENDING SURGEON: Eric Sher MD FIRST SURGEON: Joselito Patel PREOPERATIVE DIAGNOSIS: Right proximal 3rd femur shaft fracture. POSTOPERATIVE DIAGNOSIS: Right proximal 3rd femur shaft fracture. PROCEDURE PERFORMED: IM nail of right femur fracture. CPT code 59609. ANESTHESIA: GETA. ESTIMATED BLOOD LOSS: 200 mL. SPECIMENS: None. COMPLICATIONS: None apparent. IMPLANTS: Synthes TFNA 10 x 380 mm. BRIEF HISTORY AND OPERATIVE INDICATION: The patient is an 86-year-old female, who had a ground level fall at home. She had immediate right hip and proximal thigh pain. She was found to have a displaced right femur fracture. Of note, she is on Plavix and Eliquis. She was admitted by the trauma team and cleared for surgery with me today. Plavix and Eliquis have been given a 48 hours. We proceed comfortable proceeding with fixation with the nail today. I have gone over the risks, benefits, and alternatives of the procedure with the patient as well as her sons and informed consent was obtained and they elected to proceed. DESCRIPTION OF PROCEDURE: The patient was brought to the operating room, laid supine on operating table, had all bony prominences well padded. She underwent general endotracheal anesthesia under care of the anesthesia team and did so without complication. She received 2 g of IV Ancef for antibiotic prophylaxis and was prepped and draped in the usual sterile fashion. A time-out was then taken, which included reading the consent aloud, verifying the procedure to be performed as well as the terry on the right thigh that was done by me in the holding area and coincided with the x-rays in the room. All operative personnel confirmed the time-out. I used the [place] table to pull some in-line traction, a little bit abduction and just a little bit of internal rotation andspiral proximal 3rd femur shaft fracture lined up nicely on AP and lateral views. It was then a little bit of valgus and I used a percutaneous incision with a ball spike and a shoulder hook in order to tweak that reduction. We then gained a starting point at the medial portion of the tip of the trochanter and central with the head and neck shaft axis on the lateral. This was driven in proximally. We incised over the wire, gained access to the femoral canal with the curved ball-tipped guidewire. Seated across the fracture site down at the level of the knee. We measured for a 380 mm nail. I did three passes with the reamer, 9.5, 10.5 and 11.5. We selected the 10 x 380 TFNA. Holding the fracture reduced the entire time. This was seated across the fracture site. Length alignment rotation looked excellent based upon our cortical reads. We instrumented with a helical blade proximally. I medialized and gained a little bit of compression and then locked it into place. Two distal interlocking screws were placed in static position to complete the construct. The traction was removed as well as the jig. Final x-rays were taken along the length of the right femur confirming our reduction and fixation. I was pleased with how everything looked. The wounds were copiously irrigated with normal saline. A layered closure was performed. The leg was cleansed and sterile dressing was placed. All counts including, but not limited to sponges and needles were correct at the end of the procedure and the patient was extubated and transferred stable to the PACU with no apparent complications. POSTOPERATIVE CARE: She can weight bear as tolerated on the right lower extremity. She will receive Ancef in the perioperative. It is okay to resume her Plavix and Eliquis in the morning. She will primarily be managed by the trauma team. We will courage mobilization with physical therapy. ATTESTATION: I, Eric Sher, was scrubbed and present for the critical portions of this procedure and excision. Eric Sher MD /MedQ/ Dict: 01/02/2022 11:34:47 TRANS: 01/02/2022 14:21:14 JOB: [id number] DictJob#: [id number] Normal [facility] [employer] [facility] Progress Noteson 01-02-2022 District Manager Major Accounts Sales Authentication Interface Message Text SW aware of pottery decorator screen yield for pt has ADs, paper copy not with pt. Pt to OR this date. SW will follow up as able. Radha Cox [facility] [phone] Normal [facility] Manager Major Accounts Sales Authentication Interface Message Text GENERAL INFORMATION --------- TRAUMA STAFF NOTE Patient Name: Toribio Betts Patient seen and examined on 01/02/2022 -------- INTERVAL HISTORY/EVENTS ------ Background: Toribio Betts???is a 86 year old???female???broug ht in by EMS as a transfer from [facility]???following fall from standing. She fell and her leg twisted under her. She is on Eliquis. ??? Hospital Course: 12/31/2021: S/p fall, patient was admitted to [facility] 01/01/2022: No acute events overnight 24 Hour Events: No acute events overnight, HDS, afebrile. Saturating at 96% on 1L NC * lactated ringers 50 mL/hr at 01/01/22 0325 Urine output: 500 cc PHYSICAL EXAM BP 139/50 (BP Location: left arm) Pulse 58 Temp 97.9 ???F (36.6 ???C) (Oral) Resp 16 Ht 5' 1 (1.549 m) Wt 131 lb 3 oz (59.5 kg) SpO2 96% BMI 24.79 kg/m??? General: NAD, awake/alert HEENT: NCAT CV: regular rate Pulmonary: nonlabored Abdomen: soft, non-distended and non-tender Musculoskeletal: left leg tender Neurological: GCS 15 LABORATORY RESULTS (LAST 24 HOURS) CBC/PT/INR None Basic Metabolic Panel None IMAGING RESULTS (PERSONALLY REVIEWED) CXR: No CXR this AM ASSESSMENT AND PLAN Diagnosis s/p Fall 12/31: - R femoral shaft fractrue ??? PMHx: CAD, CHF, HLD, HTN, DM, Afib on Eliquis ??? Incidental Findings: None ??? Plan: Neurological: - Continue tylenol 650 mg q4h - Continue Oxycodone 2.5/5 mg q4h PRN - Continue dilaudid 02 mg q3h PRN for breakthrough pain ??? CV: - Monitor Vitals - Continue home metoprolol, lasix, atorvastatin - Hold Isosorbide for now - Hold Eliquis/plavix for procedure - Echo 5/31 with normal LV function and EF without significant valve abnormality ??? Respiratory: - Saturating well on 2L NC - Bronchopulmonary Hygiene - Incentive Spirometer - Supplemental O2 PRN to target SpO2 92%. ??? GI/Diet: - Diet: Strict NPO for OR todau - Bowel regimen: Colace, Senna - Zofran 4 mg q4h PRN for nausea - Continue PPI ??? Renal: - mIVF - Cortes in place for:???Beata-operativ e - Measure I AND O - Daily BMP, Mg, Phos. Replace as needed (Maintain K >4, Phos >3, Mg >2) ??? ID: - No indication for antibiotics at this time. ??? Heme: - No indication for transfusion at this time. - Daily CBC ? Endocrine: - SSI, unclear if on DM meds at home ??? MSK: - Progressive mobility protocol - PT/OT??? - NWB RLE ??? PPx: - VTE -???SCDs only. Hold chemoprophylaxis for OR in setting of Eliquis use??? - Stress ulcer???- No GI ppx indicated ??? Dispo: - OR today with Ortho for femoral fx repair Please contact 24/02 with questions and concerns related to the patient. (Pager: [phone]) SCRIBE ATTESTATION 01/02/2022, 7:35 AM. This note is prepared by Daysi Marshall acting as Scribe for Megan Ta MD. All medical record entries made by the Scribe were at my direction and personally dictated by me. I have reviewed the record and confirm that the note above accurately reflects all work, treatment, procedures, and medical decision making performed by Megan Ta MD. Normal [email or web address] ABO RH TYPEon 01-01-2022 ABO and Rh group Nom (Bld) Blood group A Rh(D) positive Normal [facility] Comment on above: Performed By: #### A KHRIS #### S PATHOLOGY LABORATORY [address] [place], [place], [facility] ABO/Rh History Checkon 01-01 ABO/Rh History Check Patient discharged prior Normal [facility] Comment on above: Performed By: #### 1 [id number], [id number], [id number] ####[facility] [id number] [place] [address] BASIC METABOLIC PANELon 12-04 Anion gap [Moles/Vol] 14 mmol/L Normal 10-20 [facility] Comment on above: Performed By: #### C BC #### S PATHOLOGY LABORATORY [address] [place] [address], Calcium [Mass/Vol] 8.8 mg/dL Normal 8.4-10.4 [facility] Comment on above: Performed By: #### C BC #### S PATHOLOGY LABORATORY [address] [place] [address], Chloride [Moles/Vol] 102 mmol/L Normal 97-111 [facility] Comment on above: Performed By: #### C BC #### S PATHOLOGY LABORATORY [address] [place] [address], CO2 [Moles/Vol] 26 mmol/L Normal 21-30 [facility] Comment on above: Performed By: #### C BC #### S PATHOLOGY LABORATORY [address] [place] [address], Creatinine [Mass/Vol] 0.67 mg/dL Normal 0.50-1.10 [facility] Comment on above: Performed By: #### C BC #### S PATHOLOGY LABORATORY [address] [place], [place], ESTIMATED GFR (CKD-EPI) 85 mL/min/1.73sqm Normal >=60 [email or web address] Comment on above: Result Comment: 2020 CKD EPI Equation using Creatinine without Race Comment: Estimated glomerular filtration rate (eGFR) is calculated without a race coefficient. Values should be interpreted in the context of the patient's full clinical presentation. Reference: 1. Paulino Cho, Tyron M, Dasha MCHUGH, et al.. A Unifying Approach for GFR Estimation: Recommendations of the NKF-ASN Task Force on Reassessing the Inclusion of Race in Diagnosing Kidney Disease. Swiss Journal of Kidney Diseases 202;79(2):268-88.e1. 2. N Engl J Med 2020 Vol. 385 Issue 19 Pages 5360-9892 Performed By: #### C BC #### [facility] [address] [place] [address], Glucose [Mass/Vol] 160 mg/dL High 80-116 [email or web address] Comment on above: Performed By: #### C BC #### S PATHOLOG[facility] LABORATORY [address] [place], [place], Potassium [Moles/Vol] 3.9 mmol/L Normal 3.3-5.3 [email or web address] Comment on above: Performed By: #### C BC #### S PATH[facility] LAB[facility]ATORY [address] [place] [address], Sodium [Moles/Vol] 138 mmol/L Normal 135-148 [email or web address] Comment on above: Performed By: #### C BC #### [facility] [address] [place], [place], Urea nitrogen [Mass/Vol] 13 mg/dL Normal 8-22 [email or web address] Comment on above: Performed By: #### C BC #### S PATHOLOG[facility] LABORATORY [address] [place] [address], Basic metabolic 2000 panelon 01-01-2022 Anion gap [Moles/Vol] 14 mmol/L [facility] Calcium [Mass/Vol] 8.8 mg/dL 8.4 - 10. 4 mg/dL [facility] Chloride [Moles/Vol] 102 mmol/L 97 - 111 mmol/L [facility] CO2 [Moles/Vol] 26 mmol/L 21 - 30 mmol/L [facility] Creatinine [Mass/Vol] 0.67 mg/dL 0.50 - 1.10 mg/dL [facility] GFR/1.73 sq M.predicted MDRD (S/P/Bld) [Vol rate/Area] 85 mL/min/{1.73_m2} >=60 mL/min/1.73sqm [facility] Comment on above: 2020 CKD EPI Equatio n using Creatinine without Race Comment: Estimated glomerular filtration rate (eGFR) is calculated without a race coefficient. Values should be interpreted in the context of the patient's full clinical presentation. Reference: 1. Paulino Cho, Tyron M, Dasha MCHUGH, et al.. A Unifying Approach for GFR Estimation: Recommendations of the NKF-ASN Task Force on Reassessing the Inclusion of Race in Diagnosing Kidney Disease. [place] Journal of Kidney Diseases 202;79(2):268-88.e1. 2. N Engl J Med 2020 Vol. 385 Issue 19 Pages 3629-9683 Glucose [Mass/Vol] 160 mg/dL High 80 - 116 mg/dL [facility] Interpretation and review of laboratory results Abnormal [facility] Potassium [Moles/Vol] 3.9 mmol/L 3.3 - 5.3 mmol/L [facility] Sodium [Moles/Vol] 138 mmol/L 135 - 148 mmol/L [facility] Urea nitrogen [Mass/Vol] 13 mg/dL 8 - 22 mg/dL [facility] CBC panel Auto (Bld)on 01-01 Erythrocyte distribution width (RBC) [Ratio] 13.3 % 11.5 - 14.5 % [facility] Hematocrit (Bld) [Volume fraction] 32.5 % Low 36.0 - 46.0 % [facility] Hemoglobin (Bld) [Mass/Vol] 11.1 g/dL Low 12.0 - 15.0 g/dL [facility] Interpretation and review of laboratory results Abnormal [facility] MCH (RBC) [Entitic mass] 30.8 pg 26.0 - 34.0 pg [facility] MCHC (RBC) [Mass/Vol] 34.1 g/dL 32.0 - 35.9 g/dL [facility] MCV (RBC) [Entitic vol] 91 fL 80 - 100 fL [facility] Platelet mean volume (Bld) [Entitic vol] 9.5 fL 7.5 - 11.2 fL [facility] Platelets (Bld) [#/Vol] 133 10*3/uL Low 150 - 400 K/uL [facility] RBC (Bld) [#/Vol] 3.59 10*6/uL Low [facility] WBC (Bld) [#/Vol] 9.6 10*3/uL 4.5 - 11.5 K/uL [facility] COMPLETE BLOOD COUNTon 01-01 Erythrocyte distribution width (RBC) [Ratio] 13.3 % Normal 11.5-14.5 [facility] Comment on above: Performed By: #### C BC ####[facility] PATHOLOGY [id number] [place], [place], Hematocrit (Bld) [Volume fraction] 32.5 % Low 36.0-46.0 [facility] Comment on above: Performed By: #### C BC ####[facility] PATHOLOGY [id number] [place], [place], Hemoglobin (Bld) [Mass/Vol] 11.1 g/dL Low 12.0-15.0 [facility] Comment on above: Performed By: #### C BC ####[facility] PATHOLOGY [id number] [place], [place], MCH (RBC) [Entitic mass] 30.8 pg Normal 26.0-34.0 [facility] Comment on above: Performed By: #### C BC ####[facility] PATHOLOGY [id number] [place], [place], MCHC (RBC) [Mass/Vol] 34.1 g/dL Normal 32.0-35.9 [facility] Comment on above: Performed By: #### C BC ####[facility] PATHOLOGY [id number] [place], [place], MCV (RBC) [Entitic vol] 91 fL Normal 80-100 [facility] Comment on above: Performed By: #### C BC ####[facility] PATHOLOGY [id number] [place], [place], Platelet mean volume (Bld) [Entitic vol] 9.5 fL Normal 7.5-11.2 [facility] Comment on above: Performed By: #### C BC ####[facility] PATHOLOGY [id number] [place], [place], Platelets (Bld) [#/Vol] 133 10*3/uL Low 150-400 [facility] Comment on above: Performed By: #### C BC ####S PATHOLOGY [id number] [place], [place], RBC (Bld) [#/Vol] 3.59 10*6/uL Low 4.00-5.20 [email or web address] Comment on above: Performed By: #### C BC ####[facility] [id number] [place], [place], WBC (Bld) [#/Vol] 9.6 10*3/uL Normal 4.5-11.5 [facility] Comment on above: Performed By: #### C BC ####[facility] PATHOLOGY [id number] [place], [place], CT Abdomen/Pelvis w/ Contras ton 01-01-2022 CT Abdomen/Pelvis w/ Contrast Exam Date/Time: 12/31/2021 19:30 EDT Reason for Exam: Abdominal trauma;Other (please specify) Report PLEASE SEE CT Chest w/ Contrast REPORT DATED: 12/31/2021. All CT scans at this facility use dose modulation, iterative reconstruction, and/or weight based dosing when appropriate to reduce radiation dose to as low as reasonably achievable. FINAL REPORT Dictated: 01/01/2022 11:52 am Evin Saldivar MD Signed (Electronic Signature): 01/01/2022 11:52 am Signed by: Evin Saldivar MD Transcribed by: MADAY Technologist: JADYN Technical Comments GFR (mL/min/1/73m2) na Contrast: Isovue 300 Contrast amount in ml's: 100 Normal [facility] CT Chest w/ Contraston 01-01 CT Chest w/ Contrast Exam Date/Time: 12/31/2021 19:30 EDT Reason for Exam: Chest trauma, mod-severe;Other (please specify) Report IMPRESSION: PROXIMAL RIGHT FEMORAL FRACTURE. NO OTHER SIGNIFICANT POSTTRAUMATIC COMPLICATION IDENTIFIED. EXAM: CT Chest w/ Contrast, CT Abdomen/Pelvis, CT Spine Thoracic, CT Spine Lumbar DATE: 12/31/2021 CLINICAL HISTORY: Chest trauma, mod-severe. COMPARISON: Chest CTA 06/11/[address] abdomen and pelvis 06/15/2013. TECHNIQUE: Spiral imaging was obtained of the chest, abdomen and pelvis after the infusion of approximately 100 mL of Isovue 300 contrast. Routine multiplanar reformatted reconstructions were performed; including dedicated reconstructions of the thoracic and lumbar spine. All CT scans at this facility use dose modulation, iterative reconstruction, and/or weight based dosing when appropriate to reduce radiation dose to as low as reasonably achievable. CHEST CT FINDINGS: There is no displaced fracture, significant hematoma, pneumothorax, pleural or pericardial effusion, no evidence of great vessel injury, or incidental findings of concern identified. ABDOMEN AND PELVIS CT FINDINGS: A comminuted proximal right femoral diaphyseal fracture is present, with nondisplaced extension into the intertrochanteric proximal metaphysis. There is no other fracture, dislocation, sizable hematoma, evidence of solid organ injury, free fluid, or other significant change from 06/15/[address] FINDINGS: There is no fracture, dislocation, or evidence of instability identified. Mild degenerative changes are again noted. Report LUMBAR SPINE CT FINDINGS: There is no fracture, dislocation, or evidence of instability identified. Mild to moderate degenerative changes with mild anterolisthesis of L4 over L5 are again noted. FINAL REPORT Dictated: 01/01/2022 11:51 am Evin Saldivar MD Signed (Electronic Signature): 01/01/2022 11:51 am Signed by: Evin Saldivar MD Transcribed by: MADAY Technologist: JADYN Technical Comments GFR (mL/min/1/73m2) na Contrast: Isovue 300 Contrast amount in ml's: 100 Normal [facility] CT Head or Brain w/o Contras ton 01-01-2022 CT Head or Brain w/o Contrast Exam Date/Time: 12/31/2021 19:19 EDT Reason for Exam: Head trauma, mod-severe;Other (please specify) Report IMPRESSION: NO ACUTE INTRACRANIAL PROCESS OR SIGNIFICANT CHANGE FROM 03/08/2019 IDENTIFIED. EXAM: CT Head or Brain w/o Contrast DATE: 12/31/2021 CLINICAL HISTORY: Head trauma, mod-severe. COMPARISON: 03/08/2019. TECHNIQUE: Routine. All CT scans at this facility use dose modulation, iterative reconstruction, and/or weight based dosing when appropriate to reduce radiation dose to as low as reasonably achievable. FINDINGS: There is no intracranial hemorrhage, mass effect, midline shift, extra-axial collection, evidence of hydrocephalus, skull fracture, or a recent ischemic infarct identified. Mild generalized cerebral volume loss and moderate patchy supratentorial white matter changes are again noted. The mastoid air cells and visualized paranasal sinuses are essentially clear. FINAL REPORT Dictated: 01/01/2022 10:24 am Evin Saldivar MD Signed (Electronic Signature): 01/01/2022 10:24 am Signed by: Evin Saldivar MD Transcribed by: MADAY Technologist: JADYN Wahl [facility] CT Spine Cervical w/o Contra ston 01-01-2022 CT Spine Cervical w/o Contrast Exam Date/Time: 12/31/2021 19:19 EDT Reason for Exam: NECK TRAUMA, DANGEROUS INJURY MECHANISM;Trauma Report IMPRESSION: NO FRACTURE OR EVIDENCE OF CERVICAL SPINE INJURY IDENTIFIED. EXAM: CT Spine Cervical w/o Contrast DATE: 12/31/2021 CLINICAL HISTORY: Trauma, NECK TRAUMA, DANGEROUS INJURY MECHANISM. COMPARISON: None available. TECHNIQUE: Spiral unenhanced images were obtained of the cervical spine, with routine reconstructions performed. All CT scans at this facility use dose modulation, iterative reconstruction, and/or weight based dosing when appropriate to reduce radiation dose to as low as reasonably achievable. FINDINGS: The spine is visualized from the craniovertebral junction through the T1-T2 level. There is no fracture, dislocation, or acute paraspinal soft tissue abnormalities identified. Mild to moderate degenerative changes are present, without high-grade central spinal stenosis or neural foraminal narrowing. FINAL REPORT Dictated: 01/01/2022 10:26 am Evin Saldivar MD Signed (Electronic Signature): 01/01/2022 10:26 am Signed by: Evin Saldivar MD Transcribed by: MADAY Technologist: JADYN Wahl [facility] Care Plan Noteon 01-01-2022 District Manager Major Accounts Sales Authentication Interface Message Text Problem: Routine Care: Goal: Patient care will be managed and maintained throughout hospital stay per unit specific routine care procedure Outcome: Progressing Note: Hourly rounding performed. Problem: Impaired Mobility: Goal: Ability to tolerate increased activity will improve and be maintained Outcome: Progressing Note: Angelo scale interventions in place. Problem: Activity Intolerance: Goal: Demonstrate progressive return to baseline activity level Outcome: Progressing Note: PT/OT ordered . Problem: VTE Prophylaxis: Goal: Will be free of DVT Outcome: Progressing Note: SCDs and Lovenox ordered. Problem: Fluid and Electrolyte Imbalance: Goal: Adequate fluid and electrolyte balance will be achieved and maintained Outcome: Progressing Note: NPO w/ continuous IVF. Problem: Anxiety: Goal: Level of anxiety will decrease Outcome: Progressing Note: Calming techniques used during Pt care. Problem: Acute Pain: Goal: Ability to identify pain intensity on a pain scale and rate it consistently will be achieved and maintained Outcome: Progressing Note: Numeric pain scale interventions in place. Problem: Safety: Goal: Patient will remain free of falls during hospital stay Outcome: Progressing Note: High risk falls interventions in place. Problem: Discharge Planning: Goal: Discharge needs of the adult patient will be met Outcome: Progressing Note: Pending PT/OT eval. Normal [employer] District Manager Major Accounts Sales Authentication Interface Message Text Problem: Routine Care: Goal: Patient care will be managed and maintained throughout hospital stay per unit specific routine care procedure Outcome: Progressing Problem: Impaired Mobility: Goal: Ability to tolerate increased activity will improve and be maintained Outcome: Progressing Note: Needs PT/OT post OR. Problem: Activity Intolerance: Goal: Demonstrate progressive return to baseline activity level Outcome: Progressing Problem: VTE Prophylaxis: Goal: Will be free of DVT Outcome: Progressing Problem: Fluid and Electrolyte Imbalance: Goal: Adequate fluid and electrolyte balance will be achieved and maintained Outcome: Progressing Problem: Anxiety: Goal: Level of anxiety will decrease Outcome: Progressing Problem: Acute Pain: Goal: Ability to identify pain intensity on a pain scale and rate it consistently will be achieved and maintained Outcome: Progressing Problem: Safety: Goal: Patient will remain free of falls during hospital stay Outcome: Progressing Problem: Discharge Planning: Goal: Discharge needs of the adult patient will be met Outcome: Progressing Normal [employer] Consultson 01-01-2022 District Manager Major Accounts Sales Authentication Interface Message Text Orthopaedic Surgery Consult H AND P Requesting Provider / Service: ED/Trauma CC: R Hip pain HPI: 86 year old female with CAD (plavix) Afib (eliquis) presents as Cat2 trauma after mGLF at home. Noted to have immediate pain in R hip. Rates pain a 7/10. Worse with movement, better with rest. Denies any numbness or tingling. Found to have R subtroch femur fracture. Admitted to trauma for further evaluation. PMH: CAD, CHF, CVA, HLD, HTN, DM, AFib on Eliquis PSHx: Cardiac cath/stents Social History Socioeconomic History * Marital status: Single Tobacco Use * Smoking status: Never Smoker * Smokeless tobacco: Never Used Vaping Use * Vaping Use: Never used Allergy: No Known Allergies Current Facility-Administere d Medications: * ceFAZolin (ANCEF) 2,000 mg in dextrose 50 mL ivpb, 2 g, Intravenous, One Time Dose, Trever Umana MD * HYDROmorphone (DILAUDID) 0.2 MG/ML injection 0.2 mg, 0.2 mg, Intravenous Push, One Time Dose, Trever Umana MD * atorvastatin (LIPITOR) tablet, 40 mg, Oral, At Bedtime, Ron Bach MD * furosemide (LASIX) tablet, 20 mg, Oral, Daily, Ron Bach MD * metoprolol (LOPRESSOR) tablet, 25 mg, Oral, 2x Daily, Ron Bach MD * esomeprazole (NEXIUM) capsule, 20 mg, Oral, Daily 30 min before breakfast, Ron Bach MD * sertraline (ZOLOFT) tablet, 25 mg, Oral, Daily, Ron Bach MD * acetaminophen (TYLENOL) tablet, 650 mg, Oral, Every 4 hours, Ron Bach MD, 650 mg at 01/01/22324 * ondansetron (ZOFRAN) 4 MG/2ML injection, 4 mg, Intravenous Push, Q4H PRN, Ron Bach MD * lactated ringers iv infusion, , Intravenous, Continuous, Ron Bach MD, Last Rate: 50 mL/hr at 01/01/22324, New Bag at 01/01/22324 * oxyCODONE immediate release tablet, 5 mg, Oral, Q4H PRN, Ron Bach MD, 5 mg at 01/01/22324 * HYDROmorphone (DILAUDID) 0.2 MG/ML injection 0.2 mg, 0.2 mg, Intravenous Push, Q3H PRN, Ron Bach MD * docusate sodium (COLACE) capsule, 100 mg, Oral, 2x Daily, Ron Bach MD * senna (SENOKOT) tablet, 8.6 mg, Oral, At Bedtime, Ron Bach MD * dextrose 10 % iv infusion, 125 mL, Intravenous, PRN OR glucagon (GLUCAGEN) 1 MG injection, 1 mg, Subcutaneous, PRN OR dextrose (GLUTOSE) 40 % gel, 15 g of glucose, Buccal, PRN OR dextrose (GLUTOSE) 40 % gel, 30 g of glucose, Buccal, PRN, Ron Bach MD * insulin lispro (HumaLOG) 100 UNIT/ML injection, 1-7 Units, Subcutaneous, 3x Daily AC, Ron Bach MD Family history: Denies family hx of clotting or bleeding disorder Review of Systems: ROS Gen: denies fevers, chills Eyes: denies vision changes ENT: denies sore throat Resp: denies cough, weezing CV: denies chest pain Endocrine: denies fatigue GI: denies abdominal pain MSK: see above Skin: denies rash Neuro: denies numbness, tingling O: Patient Vitals for the past 24 hrs: BP Temp Temp src Pulse Resp SpO2 O2 Device O2 Flow Rate (l/min) 01/01/22 0559 138/60 98.3 ???F (36.8 ???C) Oral 76 16 99 % Nasal cannula 2 01/01/22 0325 -- -- -- -- -- -- Nasal cannula 2 01/01/22 0315 157/74 97.8 ???F (36.6 ???C) Oral 86 20 96 % Nasal cannula 2 01/01/22 0230 -- -- -- 80 12 100 % -- -- 01/01/22 0205 -- -- -- 78 13 100 % -- -- 01/01/22 0105 157/81 -- -- 99 17 98 % -- -- 01/01/22 0059 157/82 -- -- 95 12 99 % -- -- 01/01/22 0048 168/93 97.7 ???F (36.5 ???C) Oral 100 17 98 % -- -- 01/01/22 0045 177/85 -- -- (!) 102 16 95 % Nasal cannula 2 Intake/Output Summary (Last 24 hours) at 01/01/2022 0624 Last data filed at 01/01/2022 0603 Gross per 24 hour Intake 60 ml Output 850 ml Net -790 ml PE: BP 138/60 (BP Location: left arm) Pulse 76 Temp 98.3 ???F (36.8 ???C) (Oral) Resp 16 Ht 5' 1 (1.549 m) Wt 131 lb 3 oz (59.5 kg) SpO2 99% BMI 24.79 kg/m??? Gen: AOx3, NAD HEENT: normocephalic atraumatic Psych: appropriate mood and affect Resp: nonlabored breathing Cardiac: Extremities WWP, RRR to peripheral palpation Skin: warm, dryu Neuro: SILT over BLE Right lower extremity: - Skin intact - Tender to palpation over R hip - 12/06 EHL/DF/PF. - Sensation intact to light touch in sural, saphenous, superficial/deep peroneal, tibial nerve distributions. - 2+ DP pulse, < 2 seconds capillary refill. Imaging: XR R Hip demonstrates R proximal shaft of femur fracture. A/P: 86 year old female with mGLF found to have R femur fracture. Closed, NVI. Patient and family refusing bucks skin traction and placed in pillow splint for comfort. - C/P for CMN R femur with Dr. Fierro on 01/01 - WB: NWB RLE, strict bedrest - Abx: none indicated - Diet: NPO - DVT: Per Trauma team management criteria/guidelines - Please obtain all preop labs (CBC,BMP,EKG, CXR, Coags, Type and Screen) - Cortes: placed, per trauma protocol - Pain: per trauma D/w Dr. Vadim Umana MD Orthopedic Surgery, PGY2 On-Call Admitting/Consult Resident 01/01/22 This consult was seen and staffed within 30 minutes of the initial (more content not included)... Normal [employer] [facility] ED Clinical Summaryon 2021 ED Clinical Summary [address] [address] ED Clinical Summary Person Information Name: TORIBIO BETTS/[facility] Age: 86 Years : 1935 Sex: Female Language: Yemeni PCP: Janna MANN MD Marital Status: Visit Id: Visit Reason: Leg pain-swelling; Fall; FALL W/ RT LEG INJURY Speciality: Acuity: 2 Enc Type: Emergency Med Service: Emergency Arrival: 12/31/2021 18:28:56 Discharge: 01/01/2022 00:09:43 LOS: 000 05:41 Checkin: 12/31/2021 18:28:56 Checkout: 01/01/2022 00:09:43 Dispo Type: Undefined HC Fac w/ Planned Readmit EVENTS: Event Name Event Status Request Date/Time Start Date/Time Complete Date/Time Arrive Complete 12/31/2021 18:28:56 12/31/2021 18:28:56 12/31/2021 18:28:56 Document Home Meds Request 12/31/2021 18:28:56 Triage Complete 12/31/2021 18:28:56 12/31/2021 18:44:43 12/31/2021 18:44:43 Bed Assign Complete 12/31/2021 18:31:12 12/31/2021 18:31:12 12/31/2021 18:31:12 Dr Exam Complete 12/31/2021 18:31:12 12/31/2021 18:40:35 12/31/2021 18:40:35 RN Exam Complete 12/31/2021 18:31:12 12/31/2021 19:03:20 12/31/2021 19:03:20 EKG Complete 12/31/2021 18:38:22 12/31/2021 19:00:46 NPO Request 12/31/2021 18:38:22 Pending Labs Inlab 12/31/2021 18:38:22 Lab Complete 12/31/2021 18:38:22 12/31/2021 22:23:42 Urine Collect Complete 12/31/2021 18:38:22 12/31/2021 22:23:42 RT Request 12/31/2021 18:38:22 Patient Care Request 12/31/2021 18:38:22 X-Ray Complete 12/31/2021 18:38:23 12/31/2021 19:24:03 12/31/2021 19:46:29 Blood Collect Request 12/31/2021 18:38:23 CT Complete 12/31/2021 18:38:23 12/31/2021 19:13:39 12/31/2021 19:19:57 X-Ray Complete 12/31/2021 18:40:08 12/31/2021 19:24:03 12/31/2021 19:46:29 Registration Complete 12/31/2021 18:40:35 12/31/2021 18:52:41 12/31/2021 18:52:41 Dr Exam Complete 12/31/2021 18:45:47 12/31/2021 18:45:47 12/31/2021 18:45:47 CT Complete 12/31/2021 18:49:31 12/31/2021 19:13:39 12/31/2021 19:30:03 Reg Complete Request 12/31/2021 18:52:41 Reg Bed Request Complete 12/31/2021 18:52:41 12/31/2021 18:52:41 12/31/2021 18:52:41 CT Complete 12/31/2021 18:54:59 12/31/2021 19:13:39 12/31/2021 19:19:57 Consult Request 12/31/2021 18:54:59 Trauma II Request 12/31/2021 18:59:29 Trauma II Request 12/31/2021 19:01:02 Fall Risk Request 12/31/2021 19:03:20 Pending Labs Complete 12/31/2021 19:23:26 12/31/2021 19:23:26 12/31/2021 19:23:40 Lab Complete 12/31/2021 19:23:26 12/31/2021 19:23:26 12/31/2021 19:23:40 X-Ray Complete 12/31/2021 19:23:35 12/31/2021 19:24:03 12/31/2021 19:46:29 Wet Read Request 12/31/2021 19:46:29 Meds Admin Complete 12/31/2021 19:57:49 12/31/2021 23:07:57 X-Ray Complete 12/31/2021 19:59:40 12/31/2021 20:28:21 12/31/2021 20:28:41 Patient Care Request 12/31/2021 21:27:42 Pending Labs Request 12/31/2021 21:27:42 Lab Request 12/31/2021 21:27:42 Urine Collect Request 12/31/2021 21:27:42 Meds Admin Complete 12/31/2021 23:08:01 12/31/2021 23:14:29 Discharge Complete 01/01/2022 00:10:36 01/01/2022 00:10:36 01/01/2022 00:10:36 Transfer Complete 01/01/2022 00:10:36 01/01/2022 00:10:36 01/01/2022 00:10:36 ADDRESS: [address] [place] [phone] PHYS DOC NOTES: MEDICAL INFORMATION: Prescriptions Given: Medications to Continue with No Changes Other Medications apixaban (Eliquis 2.5 mg oral tablet) 1 Tablets By Mouth 2 times a day. Refills: 1. atorvastatin (atorvastatin 40 mg Tab) 1 Tablets By Mouth at bedtime. Refills: 1. calcium-vitamin D (calcium-vitamin D 600 mg-400 intl units oral tablet) 1 Tablets By Mouth every day. clopidogrel (Plavix 75 mg Tab) 1 Tablets By Mouth every day. Refills: 3. furosemide (Lasix 20 mg Tab) 1 Tablets By Mouth every day. Refills: 1. isosorbide dinitrate (isosorbide dinitrate 30 mg oral tablet) 1 Tablets By Mouth 2 times a day. qAM and qPM. magnesium oxide (magnesium oxide 250 mg oral tablet) 1 Tablets By Mouth 2 times a day. Refills: 3. metoprolol (Metoprolol tartrate 25 mg Tab) 1 Tablets By Mouth 2 times a day. Refills: 3. multivitamin with minerals (Daily Multi) 1 Tablets By Mouth every day. multivitamin with minerals (PreserVision) By Mouth every day. 1 tablet. omeprazole (omeprazole 20 mg Cap-DR) 1 Capsules By Mouth every day. Refills: 1. sertraline (Zoloft 25 mg Tab) 1 Tablets By Mouth every day. in the evening. Refills: 3. PATIENT EDUCATION INFORMATION: Instructions: Follow up: DIAGNOSIS: Normal [facility] ED Note-Physicianon 01-02-20 ED Note-Physician Basic Information Time Seen: Rebeca MCNEAL, Bushra Kang 12/31/2021 18:40 Chief Complaint pt arrives to the er via [facility] for a fall from stand ing at home. pt states she is on eliquis. pt denies loc or hitting her head. pt is noted to have bruising to left arm and an abrasion. History of Present Illness Patient is an 86-year-old female who presents the ED today via EMS with the chief complaint of fall from standing position. Per patient, she turned to change the thermostat and the next thing she knew she was on the ground. Patient cannot recall the event leading up to the fall. Does not believe she hit her head or lost consciousness, however her recollection of the events is limited. Patient's daughter called EMS. Patient complains of right hip and upper leg pain, 10/10, medicated with 1mg Dilaudid by EMS. Patient is currently on Eliquis for paroxysmal A. fib. Denies any numbness, tingling, loss sensation, or other associated symptoms of distal extremity. Trauma II code called per protocol. Last tetanus unknown. Review of Systems 12-point review of systems completed and negative unless otherwise indicated in HPI. Physical Exam Vitals & Measurements T: 36.6 ?C(Oral) HR: 70(Peripheral) RR: 16 BP: 175/83 SpO2: 94% HT: 155.0 cm HT: 155 cm WT: 57.0 kg WT: 57 kg BMI: 23.73 Airway: Intact, no compromise Breathing: Breath sounds equal bilaterally Circulation: 3+ bilateral radial pulses, 2+ bilateral DP Gen. appearance/ neuro: Awake, alert, no focal neuro deficits. Speech is clear. Gait is steady. Movements are fluid. HEENT: Head is normocephalic atraumatic. External auditory exam is unremarkable. Hearing is grossly normal. Extraocular movements are intact grossly. Pupils equal, round, and reactive to light. Sclera clear. There is no hyphema or other pathology appreciated. Oral mucosa moist. Heart: Regular rate and rhythm. Lungs: Lungs are clear to auscultation without rales, wheezes or rhonchi. Abdomen: Abdomen is soft, nontender, nondistended. There is no rebound tenderness, no guarding. Bowel sounds normoactive in all quadrants. : deferred Right hip/ RUE: No current overlying edema, erythema, ecchymosis. Skin is warm but not hot. Patient unable to straighten right leg at this time. Tenderness upon palpation of right hip and upper leg. Sensation of distal extremity intact. Neurovascularly intact with capillary refill less than 3 seconds in all distal digits. Palpable DP pulse. Skin: Overlying hematoma and superficial skin abrasions to right forearm. Otherwise, skin color is normal. Warm and dry to palpation. Texture and turgor are normal. Medical Decision Making Presented to ED via EMS as a trauma 2. Assessment as above. Primary and secondary trauma survey completed per protocol. Diagnostic imaging as listed below. Case discussed with attending ED physician who personally evaluated patient. Trauma and orthopedic surgeons consulted regarding case and it was decided that transfer to [facility] was the best course of action at this time. Transfer discussed with patient and her family at bedside and they are agreeable to transfer at this time. Transfer initiated per protocol. Critical care time 35 minutes exclusive from separate billable procedures Assessment/Plan PRIMARY IMPRESSION: Right femoral shaft fracture (S72.301A) Ordered: ABO/Rh ABO/Rh History Check Antibody Screen Basic Metabolic Panel Blood Bank ID# CBC w/ Auto Diff Consult to Trauma CT Abdomen/Pelvis w/ Contrast CT Chest w/ Contrast CT Head or Brain w/o Contrast CT Spine Cervical w/o Contrast Drug Screen Urine ECG 12 Lead Adult ED Cardiac Monitoring Ethanol Level Hepatic Function Panel Lactic Acid Lipase Level Magnesium Level NPO Diet Oxygen Therapy PT & PTT Pulse Oximetry Continuous Saline Lock Insert Troponin UA With Cult Reflex XR Chest Single View XR Femur Min 2 Views Right XR Hip 1 View Right + Pelvis Medications Administered Given Dilaudid 1 mg/mL injectable solution, 0.5 mg, IV Push tetanus/diphtheria/p ertussis, acel (Tdap) 5 units-2.5 units-18.5 mcg/0.5 mL intramuscular suspension, 0.5 mL, Intramuscular-Immuni zation diphtheria/pertussis , acel/tetanus adult, Intramuscular-Immuni zation, Early/Late Reason: Nursing Judgment Disposition Plan Patient Discharge Condition Guarded Discharge Disposition Transfer - [facility] Discharge Prescription List Prescriptions No active prescription medications Follow-up No qualifying data available Attestation This visit was performed by both a physician and an APC. I performed all aspects of the MDM as documented. This visit was transcribed using voice recognition software. Every effort was made to ensure accuracy, however inadvertent computerized traffic checker mistakes may be present. Problem List/Past Medical History Ongoing Age-related macular degeneration, wet, both eyes Bradycardia CAD (coronary artery disease) Chronic constipation Chr (more content not included)... Normal [facility] Comment on above: Result Comment: Elec tronically Signed By: Bushra Mary\.br\Date and Time Signed: 01/01/22 02:19 EDT\.br\Electronically Co-Signed By: Janna Sauceda DO\.br\Date and Time Co-Signed: 01/01/22 07:44 EDT ED Patient Education Noteon 01-01-2022 ED Patient Education Note Normal [facility] ED Patient Summaryon 022 ED Patient Summary [place] [address] Patient Discharge Instructions Person Information Name: TORIBIO BETTS Age: 86 Years Arrival Date: 12/31/2021 18:28:56 Discharge Diagnosis: Primary Care Physician: Janna MANN MD Provider Information Primary Provider: Janna Sauceda DO Advanced Manager Solution:Bushra Mary The exam and treatment you received in the Emergency Department were for an urgent problem and are not intended as complete care. It is important that you follow up with a doctor, nurse practitioner, or physician?s assistant front end manager for ongoing care. If your symptoms become worse or you do not improve as expected and you are unable to reach your usual health care provider, you should return to the Emergency Department. We are available 24 hours a day. TORIBIO BETTS has been given the following list of patient education materials, prescriptions and follow-up instructions: Follow-up Instructions: In the event that this physician does not participate in your insurance network, please consult with your insurance company to find a nearby participating provider. Patient Education Materials: A MESSAGE TO ALL PATIENTS REGARDING OPIOIDS PRESCRIPTION OPIOIDS: WHAT YOU NEED TO KNOW Prescription opioids can be used to help relieve [id number] pain and are often prescribed following a surgery or injury, or for certain health conditions. These medications can be an important part of the treatment but also come with serious risks. It is important to work with your healthcare provider to make sure you are getting the safest, most effective care. WHAT ARE THE RISKS AND SIDE EFFECTS OF OPIOID USE? Prescription opioids carry serious risks of addiction and overdose, especially with prolonged use. An opioid overdose, often marked by slowed breathing, can cause sudden . The use of prescription opioids can have a number of side effects as well, even when taken as directed: ? Tolerance?meaning you might need to take more of the medication for the same pain relief ? Physical dependence?meaning you have symptoms of withdrawal when a medication is stopped ? Increased sensitivity to pain ? Constipation ? Nausea, vomiting, and dry mouth ? Sleepiness and dizziness ? Confusion ? Depression ? Low levels of testosterone that can result in lower sex drive, energy, and strength ? Itching and sweating RISKS ARE GREATER WITH: ? History of drug misuse, substance use disorder, or overdose ? Mental health conditions (such as depression or anxiety) ? Sleep apnea ? Older age (65 years and older) ? Avoid alcohol while taking prescription opioids. Also, unless specifically advised by your health care provider, medications to avoid include: ? Benzodiazepines (such as Xanax or Valium) ? Muscle relaxants (such as Soma or Flexeril) ? Hypnotics (such as Ambien or Lunesta) ? Other prescription opioids KNOW YOUR OPTIONS Talk to your health care provider about ways to manage your pain that don?t involve prescription opioids. Some of these options may actually work better and have fewer risks and side effects. Options may include: ? Pain relievers such as acetaminophen, ibuprofen, and naproxen ? Some medication that are also used for depression or seizures ? Physical therapy and exercise ? Cognitive behavioral therapy, a psychological, goal-directed approach, in which patients learn how to modify physical, behavioral, and emotional triggers of pain and stress. IF YOU ARE PRESCRIBED OPIOIDS FOR PAIN: ? Never take opioids in greater amounts or more often than prescribed. ? Follow up with your primary health care provider. o Work together to create a plan on how to manage your pain. o Talk about ways to help manage your pain that don?t involve prescription opioids. o Talk about any and all concerns and side effects. ? Help prevent misuse and abuse o Never sell or share prescription opioids. o Never use another person?s prescription opioids. ? Store prescription opioids in a secure place and out of reach of others (this may include visitors, children, friends, and family). ? Safely dispose of unused prescription opioids: Find your community drug take-back program or your pharmacy mail-back program, or flush them down the toilet, following guidance from the Food and Drug Administration (www.fda.gov/Drugs/R esourcesForYou). ? Visit www.cdc.gov/drugover dose to learn about the risks of opioids abuse and overdose. ? If you believe you may be struggling with addiction, tell your health lawn care professional and ask for guidance or call [facility] Helpline at [phone]. f Source: [place] Department of Health and Human Services/Center for Disease Control & Prevention [facility] Medications Given: Medication Dose Route diphtheria/p (more content not included)... Normal [facility] ED Provider Siomara 01-02-20 District Manager Major Accounts Sales Authentication Interface Message Text EMERGENCY DEPARTMENT - VISIT NOTE HISTORY OF PRESENT ILLNESS ------ Chief Complaint Patient presents with * Fall Cat 2- Pt tx from [facility] via DM, per report pt fell, on eliquis, right femur fx found at OSH. Head Teller: not needed - patient preferred language is Yemeni. The history is provided by the Patient. Toribio Betts is a 86 year old female with past medical history of CAD, afib on eliquis presenting to the ED as a category 2 trauma. Patient states she was walking in her house when she does not remember what happened but slipped and landed on her right leg, states her right leg twisted under her. She was seen at [facility], found to have right comminuted femur fracture and transferred to [facility]. Given Dilaudid prior to arrival. Patient is complaining of severe, 10/10 right hip pain of serosa palpation and movement. She denies any other symptoms at this time REVIEW OF SYSTEMS Review of Systems Constitutional: Negative for chills and fever. HENT: Negative for congestion and sore throat. Respiratory: Negative for cough and shortness of breath. Cardiovascular: Negative for chest pain and leg swelling. Gastrointestinal: Positive for nausea. Negative for abdominal pain, diarrhea and vomiting. Genitourinary: Negative for decreased urine volume and dysuria. Musculoskeletal: Positive for arthralgias, gait problem and myalgias. Negative for back pain. Skin: Negative for pallor and wound. Neurological: Negative for weakness and headaches. Psychiatric/Behavior al: Negative for confusion and self-injury. PAST HISTORY -- Pertinent Past History: afib on Eliquis, HTN, HLD Pertinent Family History: denies family history of bleeding disorders Pertinent Social History: denies EOTH tobacco and drug use PHYSICAL EXAM --- BP 157/74 (BP Location: left arm) Pulse 86 Temp 97.8 ???F (36.6 ???C) (Oral) Resp 20 Ht 5' 1 (1.549 m) Wt 131 lb 3 oz (59.5 kg) SpO2 96% BMI 24.79 kg/m??? Primary Survey Airway Intact Breathing Spontaneous and Bilateral breath sounds Circulation Palpable bilateral femorals, Palpable bilateral radial, Palpable bilateral DP and Palpable bilateral PT Disability / Spine precautions GCS Score: Best Eye Response: Spontaneously (+4) Best Verbal Response: Oriented (+5) Best Motor Response: Obeys commands (+6) Secondary Survey Constitutional Alert, No acute distress and Oriented times 3 Head Atraumatic, Midface stable, No Cephalohematoma and No Lacerations noted Eye Extraocular muscles intact and Pupils equal and round ENT Oropharynx clear, no lacerations, No dental malocclusion, No dental fractures, No rhinorrhea and dry mucous membranes Cervical spine / Neck No cervical spine bony tenderness, crepitus, or stepoff and No nuchal rigidity Lungs Clear to auscultation and Breath sounds equal and symmetric Cardiac Regular rate and rhythm and No murmur, rub or gallop Abdomen Soft, Nontender, No distension and Normal bowel sounds No evidence of genital injury Back No midline bony tenderness to thoracic/lumbar/sacr al spines Neuro Alert normally oriented Moves all 4 extremities symmetrically and equally to command Extremities Deformities, severe pain with movement right lower extremity, externally rotated, bilateral upper extremities without deformity, LLE without deformity, no tenderness to active of passive ROM Skin No wounds Psych Normal affect MEDICAL DECISION MAKING and ED COURSE - Nursing triage and assessment notes reviewed and incorporated Interpretation of Results: Please see ED course for interpretation of labs and imaging EKG interpreted: Rhythm: Normal sinus rhythm and with frequent PVCs, Ventricular rate of 99, Normal axis, normal AL, prolonged QT, ST T changes: No ST-T wave changes No previous for comparison. Course: Therapeutics: Medications atorvastatin (LIPITOR) tablet (has no administration in time range) furosemide (LASIX) tablet (has no administration in time range) metoprolol (LOPRESSOR) tablet (25 mg Oral Hold/Not Given 01/01/22 0306) esomeprazole (NEXIUM) capsule (has no administration in time range) sertraline (ZOLOFT) tablet (has no administration in time range) lactated ringers iv infusion ( Intravenous IV New Bag 01/01/22324) acetaminophen (TYLENOL) tablet (650 mg Oral Given 01/01/22324) oxyCODONE immediate release tablet (5 mg Oral Given 01/01/22324) HYDROmorphone (DILAUDID) 0.2 MG/ML injection 0.2 mg (has no administration in time range) docusate sodium (COLACE) capsule (100 mg Oral Hold/Not Given 01/01/22 0305) senna (SENOKOT) tablet (has no administration in time range) ondansetron (more content not included)... Normal [facility] ED Traumaon 01-01-2022 ED Trauma [id number] #[id number]:127 Normal [facility] EKG 12 LEAD - PERFORMon 12-04 Diagnosis Sinus rhythm with frequent Premature ventricular complexes LVH with left ventricular strain Abnormal ECG No previous ECGs available Confirmed by CHANDAN BALDWIN ([id number]) on 01/01/2022 8:39:16 PM [facility] P wave Atrium by EKG 99 BPM [facility] P wave axis 85 degrees [facility] P-R Interval 190 ms [facility] Q-T interval 374 ms [facility] Q-T interval corrected 479 ms [facility] Q[facility] axis 3 degrees [facility] QRS duration 76 ms [facility] T wave axis 130 degrees [facility] GLUCOSE, FINGERSTICK-IN OFFI CEon 01-01-2022 Glucose [Mass/Vol] 125 mg/dL High 80-116 [facility] Comment on above: Performed By: #### 8 2948 ####NURSING GLUCOSE [id number] [place], [address] Glucose [Mass/Vol] 125 mg/dL High 80 - 116 mg/dL [facility] Interpretation and review of laboratory results Abnormal [facility] Glucose [Mass/Vol] 120 mg/dL High 80-116 [facility] Comment on above: Performed By: #### 8 2948 #### NURSING GLUCOSE PROGRAM [address] [place], [address] Glucose [Mass/Vol] 120 mg/dL High 80 - 116 mg/dL [facility] Interpretation and review of laboratory results Abnormal [facility] Glucose [Mass/Vol] 125 mg/dL High 80-116 [facility] Comment on above: Performed By: #### 8 2948 #### NURSING GLUCOSE PROGRAM [address] [place], [address] Glucose [Mass/Vol] 125 mg/dL High 80 - 116 mg/dL [facility] Interpretation and review of laboratory results Abnormal [facility] Glucose [Mass/Vol] 147 mg/dL High 80-116 [facility] Comment on above: Performed By: #### 8 2948 ####NURSING GLUCOSE [id number] [facility] [place], [address] Glucose [Mass/Vol] 147 mg/dL High 80 - 116 mg/dL [facility] Interpretation and review of laboratory results Abnormal [facility] H AND Chris 01-01-2022 District Manager Major Account[employer] Sales Authentication Interface Message Text Attestation signed by Navin Matson DO at 01/01/2022 5:07 PM Teaching Physician Note: I saw and evaluated the patient. I personally obtained the cloud and critical portions of the history and physical exam. I reviewed the resident's documentation and discussed the patient with the resident. I agree with the resident's medical decision making as documented in the resident's note. Transfer from [facility]. Complex right pelvic fracture. Neurovascularly intact. Admit to our service given the age and complexity of the fracture. Surgery pending preop evaluation and workup. Lisha Matson DO Critical care / Trauma / Emergency general surgery My pager: [phone] [facility] resident: [phone] (admitted) / -[phone] (new pts) [facility] DIVISION OF ACUTE CARE SURGERY TRAUMA SURGERY HISTORY AND PHYSICAL [facility]ibio [facility] [id number] 01/01/22 BASIC INJURY INFORMATION: Level of activation: Category 2 Trauma Mode of transport: Ambulance: Transfer Mechanism of injury: Fall from ground level Complicating features: Not applicable Protective measures: Not applicable Date of Injury: 12/31/2021 Time of Injury: 6 PM Patient origin: Transfer from outside facility HISTORY OF PRESENT INJURY: Toribio Betts is a 86 year old female brought in by EMS as a transfer from [facility] following fall from standing. She fell and her leg twisted under her. She is on Eliquis. She had imaging at OSH including CT head, C spine, A and P. No T and L. Loss of consciousness: No Initial interventions (prior to ED disposition): None (Select all that apply.) Hemodynamic status witnessed in ED: Tachycardic (>100 bpm) (Select all that apply.) PRIMARY SURVEY: Airway: Intact Breathing: Normal Breath Sounds: Breath sounds equal bilaterally. Circulation: Pulses: Normal Skin: Normal skin color, texture, and turgor. No rashes or lesions. Disability: Pupils: PERRL GCS: Best Eyes: 4 Best Verbal: 5 Best Motor: 6 Total: 15 SECONDARY SURVEY: ED Triage Vitals [01/01/22 0045] BP Heart Rate Respiratory Rate Temp Temp src 177/85 (!) 102 16 -- -- SpO2 Weight Height Head Circumference Peak Flow 95 % -- -- -- -- Pain Score Pain Loc Pain Edu? Excl. in GC? 10 -- -- -- Neurologic: Alert and oriented, appropriate, moves all extremities. HEENT: Head: No lacerations, bone step-offs, or abrasions; midface stable to palpation Eyes: PERRLA, conjunctiva/corneas without lesions. Ears: Bilateral TMs could no be visualized Nose: Septum midline, no crepitus with motion. Throat: Oral cavity without trauma. Neck: No midline tenderness, lacerations, or wounds Chest: No crepitus or pain with palpation; no abrasions or contusions; no gross deformities Pulmonary: Breath sounds clear, symmetrical; no wheezes, rales, or consolidation Cardiovascular: Pulses: Bilateral radial, femoral, DP and PT pulses are normal. Abdomen: Non-distended; non-tender to palpation; no scars, lacerations, or contusions Rectal: Not performed. Pelvis/Perineum: Pelvis is stable to palpation and Additional findings: Severe TTP R hip Musculoskeletal: Back/Spine: Thoracolumbar spinal column non-tender and No step-off or deformity noted Extremities: Right LOWER extremity abnormality: Severe pain with movement, held in externally rotated position Adjunct Studies: None Check all that apply: None PAST MEDICAL HISTORY: Other: CAD, CHF, CVA, HLD, HTN, DM, AFib on Eliquis PAST SURGICAL HISTORY: Cardiac cath PRE-ADMISSION MEDICATIONS: Atorvastatin 40 mg HS Eliquis 2.5mg BID Isosorbide Dinitrate 30mg BID Lasix 20mg daily Metoprolol 25 BID Omeprazole 20mg daily Plavix 75mg daily Zoloft 25mg daily Anti-platelet use: Plavix, 12/31/21 Anti-coagulant use: Yes: Eliquis (name) and 12/31/21 (date of last use) ALLERGIES: Not on File SOCIAL HISTORY: Social History Socioeconomic History * Marital status: Single Living status: Home Primary language: Yemeni Functional status: Independent Impairments: Hearing loss Assistive Devices Used: None FAMILY HISTORY: No family history on file. REVIEW OF SYSTEMS: Skin: negative Eyes: negative review of symptoms Ears/Nose/Throat: negative Respiratory: negative symptoms (no cough, hemoptysis, SOB, RODRÍGUEZ, PND, wheezing) Cardiovascular: negative symptoms (No CP/Pressure/Tightnes s, palpitations, orthopnea, PND, SOB, RODRÍGUEZ, edema, SCHNEIDER or vision change) Gastrointestinal: negative symptoms (no abdominal pain, anorexia, n/v, indigestion, constipation, or diarrhea) Genitourinary: no urinary symptoms Neurologic: negative symptoms (no syncope, seizures, weakness, gait problems, numbness, burning pain, tremors, or memory loss) R hip fracture Psychiatric: negative (no sleep disturbance, anxiety, memory loss, disorientatio (more content not included)... Normal [facility] Laboratory - Blood bankon ABO and Rh group Nom (Bld) Blood group A Rh(D) positive [facility] MAGNESIUMon 01-01-2022 Magnesium [Mass/Vol] 1.9 mg/dL Normal 1.6-2.8 [facility] Comment on above: Performed By: #### C BC #### [facility] [address] [place] [address], [phone] Interpretation and review of laboratory results [email or web address] Magnesium [Mass/Vol] 1.9 mg/dL 1.6 - 2.8 mg/dL [facility] No Panel Informationon 01-[address] [facility] PARTIAL THROMBOPLASTIN TIMEo n 01-01-2022 aPTT Coag (Bld) [Time] 28 s Normal 25-37 Th e [facility] Comment on above: Performed By: #### A KHRIS #### S [facility] LAB[facility]AT[facility] [address] [place] [address], aPTT Coag (Bld) [Time] 28 s [facility] Interpretation and review of laboratory results Normal [facility] PHOSPHORUSon 01-01-2022 Phosphate [Mass/Vol] 3.6 mg/dL Normal 2.3-4.2 The [facility] Comment on above: Performed By: #### Marquis #### [facility] [address] [place] [address], Interpretation and review of laboratory results Normal [facility] Phosphate [Mass/Vol] 3.6 mg/dL 2.3 - 4.2 mg/dL [facility] PROTHROMBIN TIME AND INRon 0 01-01-2022 INR Coag (PPP) [Relative time] 1.27 {INR} High 0.90-1.10 [facility] Comment on above: Performed By: #### A KHRIS #### [facility] [address] [place] [address], PT Coag (PPP) [Time] 14.3 s High 9.7-12.9 The [facility] Comment on above: Performed By: #### A KHRIS #### [facility] [address] [place] [address], INR Coag (PPP) [Relative time] 1.27 {INR} High [facility] Interpretation and review of laboratory results Abnormal [facility] PT Coag (PPP) [Time] 14.3 s High [facility] Procedureson 01-01-2022 District Manager Major Accounts Sales Authentication Interface Message Text Transthoracic Echocardiographic Report Name: SIPP TORIBIO HAWLEY MD Physician: : [id number] Referring TATI REYES MD Physician: KENNA OCASIO DO Age: 86 Traffic Checker: MELANY Kumari Exam Date: 01/01/2022 Fellow: 08:38 AM CVT: PCP: Gender: Female Height 152.4 cm Weight 59.4216 kg Encounter #: BSA 1.56 m2 Study IP Non-Unit BMI 25.58 kg/m2 Location: Technical Fair Quality: Type of Study: TTE procedure: 2D echocardiogram, M-Mode, Doppler , Color Doppler. Indications for Study:Atrial fibrillation. Tech. Comments Patient identified by name and date of . Doctor's order(s) verified. Patient's preferred language is Yemeni . Supine BP: 138/60 mmHg Patient Status: Routine Left Ventricle Value Normal Value Normal LVIDd: 4.05 cm <5.7 cm Post. Wall 0.71 cm <1.2 cm Thickness: Septum 0.93 cm <1.2 cm LV FS: 47.9 % 30-40% Diastolic: Systolic 2.11 cm <4 cm LV Mass 108.9g Dimension: LV Mass Index: 70 g/m2 <110 Women<120 Men Left Atrium LA Dimension: 2.7 cm <3.92cm Right Cavities Ventricle Atrium RV (apical 4): 3.09 cm <4.3 cm RA (apical 4): 3.05 cm <4.6 cm Vessels Sinus of 2.6cm Valsalva: Findings/Conclusions Chambers LV Left ventricular systolic function is normal. The left ventricular ejection fraction (LVEF) is 65% +/- 5%by the triplane summation of disc (Cordero's rule) method. Left ventricular size is normal. LA Normal left atrium. The left atrial volume index is 20 mL/m2 (normal: <35 mL/m2, mild: 35-41 mL/m2, moderate: 42-48 mL/m2, severe: >48 mL/m2). RV Normal right ventricular size and function. The tricuspid annular plane systolic excursion (TAPSE, a marker of RV systolic function) is normal at 28 mm (normal >16 mm). RA Normal right atrium. Valves AV Normal aortic valve. MV Mitral annular fibrocalcific changes are present and are mild. There is physiologic mitral regurgitation. TV Normal tricuspid valve. There is physiologic tricuspid regurgitation. PV Normal pulmonic valve. There is physiologic pulmonic regurgitation. Great Vessels Normal sinus of Valsalva. Pericardium/Pleura No evidence of a pericardial effusion. Hemodynamics Estimated pulmonary artery systolic pressure is 55 mmHg +/- 5 mmHg. (Upper normal is <40 mmHg). Estimated RA pressure is 5 mmHg. The left ventricular filling pattern is abnormal. This is of the pseudonormal type (combined abnormal ventricular relaxation and excessive ventricular preload, a.k.a. Type II diastolic dysfunction). Summary Left ventricular systolic function is normal. The left ventricular ejection fraction (LVEF) is 65% +/- 5% Diastolic LV function assessed by resting Doppler is abnormal. Normal right ventricular size and function. No hemodynamically significant valve disease. Noninvasive hemodynamic assessment is consistent with moderate pulmonary hypertension (50-60 mmHg). See above for further details. Authenticated by: Electronically signed and authenticated by NICOLASA HAWLEY MD(Interpreting physician) on 01/01/2022 11:19 AM Normal [facility] Noteson 01-01-2022 District Manager Major Accounts Sales JumpHawkation Interface Message Text Pt refusing turns at this time, educated on importance of q2h turns to prevent pressure injuries, pt verbalized understanding but states her hip hurts too much when moving to turn right now, says maybe later. Will continue to encourage throughout the night. Normal [facility] Interface Message Text SW aware of pottery decorator screen yield for pt has ADs, paper copy not with pt. SW will follow up as able. Radha Cox [facility] [phone] Normal The [facility] Interface Message Text GENERAL INFORMATION --------- TRAUMA STAFF NOTE Patient Name: Toribio Betts Patient seen and examined on 01/01/2022 -------- INTERVAL HISTORY/EVENTS ------ Background: Toribio Betts is a 86 year old female brought in by EMS as a transfer from [facility] following fall from standing. She fell and her leg twisted under her. She is on Eliquis. Hospital Course: 12/31/2021: S/p fall, patient was admitted to [facility] 24 Hour Events: Patient was admitted to [facility] Saturating at 99% on 2L NC * lactated ringers 50 mL/hr at 01/01/22 0325 Urine output: 850 cc PHYSICAL EXAM BP 138/60 (BP Location: left arm) Pulse 76 Temp 98.3 ???F (36.8 ???C) (Oral) Resp 16 Ht 5' 1 (1.549 m) Wt 131 lb 3 oz (59.5 kg) SpO2 99% BMI 24.79 kg/m??? General: NAD, awake/alert HEENT: NCAT CV: regular rate Pulmonary: nonlabored Abdomen: soft, non-distended and non-tender Musculoskeletal: left leg tender Neurological: GCS 15 LABORATORY RESULTS (LAST 24 HOURS) CBC/PT/INR WBC RBC Hgb Hct MCV RDW Plt PT aPTT INR 01/01/22 0618 9.6 3.59 11.1 32.5 91 13.3 133 Basic Metabolic Panel None IMAGING RESULTS (PERSONALLY REVIEWED) CXR: No CXR this AM ASSESSMENT AND PLAN Diagnosis s/p Fall 12/31: - R femoral shaft fractrue PMHx: CAD, CHF, HLD, HTN, DM, Afib on Eliquis Incidental Findings: None Plan: Neurological: - Continue tylenol 650 mg q4h - Continue Oxycodone 2.5/5 mg q4h PRN - Continue dilaudid 02 mg q3h PRN for breakthrough pain CV: - Monitor Vitals - Continue home metoprolol, lasix, atorvastatin - Hold Isosorbide for now - Hold Eliquis/plavix for procedure - Echo 01/01 with normal LV function and EF without significant valve abnormality Respiratory: - Saturating well on 2L NC - Bronchopulmonary Hygiene - Incentive Spirometer - Supplemental O2 PRN to target SpO2 92%. GI/Diet: - Diet: Strict NPO - Bowel regimen: Colace, Senna - Zofran 4 mg q4h PRN for nausea - Continue PPI Renal: - mIVF - Cortes in place for: Beata-operative - Measure I AND O - Daily BMP, Mg, Phos. Replace as needed (Maintain K >4, Phos >3, Mg >2) ID: - No indication for antibiotics at this time. Heme: - No indication for transfusion at this time. - Daily CBC ??? Endocrine: - SSI, unclear if on DM meds at home MSK: - Progressive mobility protocol - PT/OT - NWB RLE - Plan for OR tomorrow with Ortho, pending ECHO PPx: - VTE - SCDs only. Hold chemoprophylaxis for OR in setting of Eliquis use - Stress ulcer - No GI ppx indicated Dispo: - OKAY FOR OR WITH ORTHO FROM TRAUMA STANDPOINT Please contact 24/02 with questions and concerns related to the patient. (Pager: [phone]) SCRIBE ATTESTATION 01/01/2022, 7:01 AM. This note is prepared by Daysi Marshall acting as Scribe for Megan Ta MD. All medical record entries made by the Scribe were at my direction and personally dictated by me. I have reviewed the record and confirm that the note above accurately reflects all work, treatment, procedures, and medical decision making performed by Megan Ta MD. Normal [facility] RAD - Preliminary Cat Scan R eporton 01-01-2022 RAD - Preliminary Cat Scan Report [id number] #[id number]:127 Normal [facility] TYPE AND SCREENon 01-01-2022 ABO and Rh group Nom (Bld) Blood group A Rh(D) positive Normal [facility] Comment on above: Performed By: #### 8 2948 #### NURSING GLUCOSE PROGRAM [address] [place], [address] ABO and Rh group Nom (Bld) No Previous Results Normal [facility] Comment on above: Performed By: #### 8 2948 #### NURSING GLUCOSE PROGRAM [address] [place], [address] ABSC INT Negative Normal The [facility] Comment on above: Performed By: #### 8 2948 #### NURSING GLUCOSE PROGRAM [address] [place], [address] ABO and Rh group Nom (Bld) Blood group A Rh(D) positive [facility] ABO and Rh group Nom (Bld) No Previous Results [facility] Blood group antibody screen Ql Negative [facility] Transfer Documentson 022 Transfer Documents [id number] #[id number]:127 Normal [facility] U Drug Screenon 01-01-2022 Amphetamines Screen method >1000 ng/mL Ql (U) Negative Normal Negative [facility] Comment on above: Result Comment: Nega tive Cutoff: <1000 ng/mL Performed By: #### 2 [id number] ####[facility] [address] [place] [address] Barbiturates Screen Ql (U) Negative Normal Negative [facility] Comment on above: Result Comment: Nega tive Cutoff: <200 ng/mL Performed By: #### 2 [id number] ####[facility] [address] [place] [address] Benzodiazepines Ql (U) Negative Normal Negative [facility] Comment on above: Result Comment: Nega tive Cutoff: <200 ng/mL Performed By: #### 2 [id number] ####[facility] [address] [place] [address] Cocaine Ql (U) Negative Normal Negative [facility] Comment on above: Result Comment: Nega tive Cutoff: <300 ng/mL Performed By: #### 2 [id number] ####[facility] [address] [place] [address] Opiates Screen Ql (U) Negative Normal Negative [facility] Comment on above: Result Comment: Nega tive Cutoff: <300 ng/mL Performed By: #### 2 [id number] ####[facility] [address] [place] [address] Phencyclidine Screen method >25 ng/mL Ql (U) Negative Normal Negative [facility] Comment on above: Result Comment: Nega tive Cutoff: <25 ng/mL These drug screen results are to be used for medical (i.e., treatment) purposes only. Unconfirmed drug screening results must not be used for non-medical purposes (e.g., employment testing, legal testing). Performed By: #### 2 [id number] ####[facility] [address] [place] [address] Tetrahydrocannabinol Screen method >50 ng/mL Ql (U) Negative Normal Negative [facility] Comment on above: Result Comment: Nega tive Cutoff: <50 ng/mL Performed By: #### 2 [id number] ####[facility] [facility] [address] [facility] [address] UA With Cult Reflexon 2021 Bilirubin Ql (U) Negative Normal Negative [facility] Comment on above: Performed By: #### 1 [id number] ####[facility] [address] [place] [address] Clarity (U) CLEAR Normal Clear [facility] Comment on above: Performed By: #### 1 [id number] ####[facility] [address] [facility] [place] [address] Color (U) STRAW Abnormal Yellow [facility] Comment on above: Performed By: #### 1 1696929 ####[address] [address] Epithelial cells.squamous LM.HPF (Urine sed) [#/Area] 0-2 Normal 0-2 [facility] Comment on above: Performed By: #### 1 1984536 ####[address] [address] Glucose Test strip (U) [Mass/Vol] Negative Normal Negative [facility] Comment on above: Performed By: #### 1 [id number] ####[address] [address] Hemoglobin Ql (U) TRACE Abnormal Negative [facility] Comment on above: Performed By: #### 1 6054790 ####[address] [address] Ketones (U) [Mass/Vol] Negative Normal Negative [facility] Comment on above: Performed By: #### 1 6957303 ####[address] [address] [place].plasma/[place] .RBC (Bld) [Mass ratio] 0-3 Normal 0-3 [facility] Comment on above: Performed By: #### 1 9730843 ####[address] [address] Nitrite Ql (U) Negative Normal Negative [facility] Comment on above: Performed By: #### 1 2539565 ####[address] [address] pH (U) 7.0 [pH] Invalid Interpretation Code 5.0-9.0 [facility] Comment on above: Performed By: #### 1 9603524 ####[address] [address] Protein (U) [Mass/Vol] Negative Normal Negative [facility] Comment on above: Performed By: #### 1 2044206 ####[address] [address] Specific gravity (U) [Rel density] 1.010 Invalid Interpretation Code 1.005-1.030 [facility] Comment on above: Performed By: #### 1 8888970 ####[facility] [address] [place] [address] Type of Urine collection method Clean Catch Normal [facility] Comment on above: Performed By: #### 1 2437748 ####[facility] [address] [place] [address] Urobilinogen Qn (U) 0.2 {Daily'U}/dL Normal 0.0-1.0 [facility] Comment on above: Performed By: #### 1 3652096 ####[facility] [address] [place] [address] WBC Auto Ql (U) Negative Normal Negative [facility] Comment on above: Performed By: #### 1 [id number] ####[address] [address] WBC LM.HPF (Urine sed) [#/Area] 0-5 Normal 0-5 [facility] Comment on above: Performed By: #### 1 2630110 ####[facility] [address] [place] [address] Vaccinationson 01-01-2022 Vaccinations [id number] #1.00CD:127 Normal [facility] XR Chest Single Viewon 01-01 XR Chest Single View Exam Date/Time: 12/31/2021 19:46 EDT Reason for Exam: Trauma;Other (please specify) Report IMPRESSION: NO EVIDENCE OF ACTIVE CARDIOPULMONARY DISEASE OR SIGNIFICANT THORACIC TRAUMA IDENTIFIED, BY PLAIN RADIOGRAPHY. EXAM: XR Chest Single View DATE: 12/31/2021 CLINICAL HISTORY: Trauma. COMPARISON: 03/30/2019 TECHNIQUE: A supine AP radiograph of the chest was obtained. FINDINGS: There is no significant pulmonary infiltrate, cardiomegaly, pleural effusion, vascular congestion, pneumothorax, or displaced fractures identified. FINAL REPORT Dictated: 01/01/2022 3:15 pm Evin Saldivar MD Signed (Electronic Signature): 01/01/2022 3:15 pm Signed by: Evin Saldivar MD Transcribed by: MADAY Technologist: JADYN Wahl [facility] XR Femur Min 2 Views Righton 01-01-2022 XR Femur Min 2 Views Right Exam Date/Time: 12/31/2021 19:46 EDT Reason for Exam: Pain, Traumatic Report PLEASE SEE XR Hip 2-3 Views Right + Pelvis REPORT DATED: 12/31/2021. FINAL REPORT Dictated: 01/01/2022 3:38 pm Evin Saldivar MD Signed (Electronic Signature): 01/01/2022 3:38 pm Signed by: Evin Saldivar MD Transcribed by: MADAY Technologist: JADYN Wahl [facility] XR Forearm 2 Views Righton 0 01-01-2022 XR Forearm 2 Views Right Exam Date/Time: 12/31/2021 20:28 EDT Reason for Exam: Pain, Traumatic Report IMPRESSION: NO DISPLACED FRACTURE OR SIGNIFICANT POSTTRAUMATIC COMPLICATION IDENTIFIED. EXAM: XR Forearm 2 Views Right DATE: 12/31/2021 CLINICAL HISTORY: Pain, Traumatic. COMPARISON: None available. TECHNIQUE: AP and lateral radiographs of the right forearm were obtained. FINDINGS: There is no fracture, significant degenerative changes, dislocation, worrisome bone destruction, abnormal radiodense foreign bodies, or pathologic calcifications identified. FINAL REPORT Dictated: 01/01/2022 3:46 pm Evin Saldivar MD Signed (Electronic Signature): 01/01/2022 3:46 pm Signed by: Evin Saldivar MD Transcribed by: MADAY Technologist: BRYCE Normal [facility] XR Hip 2-3 Views Right + Pel vison 01-01-2022 XR Hip 2-3 Views Right + Pelvis Exam Date/Time: 12/31/2021 19:46 EDT Reason for Exam: Trauma;Other (please specify) Report IMPRESSION: COMMINUTED MILD TO MODERATELY DISPLACED PROXIMAL RIGHT FEMUR FRACTURE. EXAM: XR Hip 2-3 Views Right + Pelvis, XR Femur Min 2 Views Right DATE: 12/31/2021 CLINICAL HISTORY: Trauma. COMPARISON: Chest, abdomen and pelvis CTs from earlier 12/31/2021. TECHNIQUE: An AP view of the pelvis, and AP and lateral radiographs of the right hip, and AP radiographs of the femur were obtained. FINDINGS: A comminuted mild to moderately displaced and mildly angulated fracture of the proximal femoral diaphysis is present. Nondisplaced extension into the intertrochanteric metaphysis noted on the CT is not visualized by radiography. There is no other fracture, dislocation, pelvic diastases, evidence of significant hematoma, or other acute findings identified elsewhere. Contrast is noted in the urinary tract and bladder from the earlier CT. FINAL REPORT Dictated: 01/01/2022 3:37 pm Evin Saldivar MD Signed (Electronic Signature): 01/01/2022 3:37 pm Signed by: Evin Saldivar MD Transcribed by: MADAY Technologist: RAB Normal [facility] ABO/Rhon 12-31-2021 ABO/Rh Positive Invalid Interpretation Code [facility] Comment on above: Performed By: #### 1 [id number], [id number], 54569627, 0951686 ####[facility] [address] [place] [address] ABSCon 12-31-2021 ABSC Gel Interp Negative Normal [facility] Comment on above: Performed By: #### 1 8854355, 14239815, 05635563, 5596832 ####[facility] [address] [place] [address] Auto DiffOrdered By: SYSTEM SYSTEM on 12-31-2021 Basophils/100 WBC (Bld) 0.6 % Normal 0.0-2.0 [facility] HemeAutoSS Comment on above: Order Comment: Order Added by Discern Expert. Performed By: #### 2 906613, 6029004, 5176828, 9380881, 0552614, 6861844, 61552546, 3378683, 6446783 #### [facility] [address] [place] [address] Basophils/Leukocytes Auto (Bld) [Pure # fraction] 0.0 E9/L Normal 0.0-0.2 [facility] Comment on above: Order Comment: Order Added by Discern Expert. Performed By: #### 2 731137, 0779338, 1562189, 3115631, 2907583, 7554662, 18091516, 5398687, 4360722 #### [facility] [address] [place] [address] Eosinophils/100 WBC (Bld) 1.4 % Normal 0.0-8.0 [facility] Comment on above: Order Comment: Order Added by Discern Expert. Performed By: #### 2 131508, 5255782, 6569320, 2524374, 8309730, 4095804, 29158159, 5428629, 7711061 #### [facility] [address] [place] [address] Eosinophils/Leukocytes Auto (Bld) [Pure # fraction] 0.1 E9/L Normal 0.0-0.5 [facility]eAutoSS Comment on above: Order Comment: Order Added by Discern Expert. Performed By: #### 2 819081, 0509852, 5620074, 2900089, 3255191, 3962971, 33034108, 5464645, 1410221 #### [facility] [address] [place] [address] Lymphocytes/100 WBC (Bld) 29.8 % Normal 14.0-50.0 [facility] Comment on above: Order Comment: Order Added by Discern Expert. Performed By: #### 2 153112, 2521228, 0088561, 5365434, 7634822, 1307289, 98051230, 9512399, 3395168 #### [facility] [address] [place] [address] Lymphocytes/Leukocytes Auto (Bld) [Pure # fraction] 2.1 E9/L Normal 1.0-4.0 [facility] Comment on above: Order Comment: Order Added by Discern Expert. Performed By: #### 2 414515, 1904698, 7177710, 3227550, 1891820, 5215363, 03415064, 2975151, 6391056 #### [facility] [address] [place] [address] Monocytes/100 WBC (Bld) 7.4 % Normal 4.0-14.0 [facility] Comment on above: Order Comment: Order Added by Discern Expert. Performed By: #### 2 388201, 9543078, 0432250, 3998859, 7994043, 8164041, 34963760, 4245597, 5452361 #### [facility] [address] [place] [address] Monocytes/Leukocytes Auto (Bld) [Pure # fraction] 0.5 E9/L Normal 0.2-1.0 [facility] Comment on above: Order Comment: Order Added by Discern Expert. Performed By: #### 2 186952, 2830933, 3344885, 1807354, 3743408, 2367077, 15321124, 8471306, 7129857 #### [facility] [address] [place] [address] Neutrophils/100 WBC (Bld) 60.8 % Normal 36.0-75.0 [facility] Comment on above: Order Comment: Order Added by Discern Expert. Performed By: #### 2 489345, 5506103, 4446030, 4671620, 3250885, 3445452, 89322611, 5204904, 6294302 #### [facility] [address] [place] [address] Neutrophils/Leukocytes Auto (Bld) [Pure # fraction] 4.3 E9/L Normal 2.0-7.5 [facility] Comment on above: Order Comment: Order Added by Discern Expert. Performed By: #### 2 788336, 3958903, 3469336, 3574688, 6773129, 5487779, 64769972, 7292113, 2978944 #### [facility] [address] [place] [address] BLOOD BANKOrdered By: Des Marie on 12-31-2021 ABO/Rh Interp Positive Invalid Interpretation Code [facility] BB Subsection ABSC Gel Interp Negative (12/31/21 7:00 PM) Normal [facility] BB Subsection BMPOrdered By: SYSTEM SYSTEM on 12-31-2021 Creatinine [Mass/Vol] 0.9 mg/dL Normal 0.5-1.3 [facility] Comment on above: Performed By: #### 2 487415, 2188980, 4579112, 7468360, 2572629, 4865714, 45721711, 9254845, 8897127 ####[facility] [address] [place] [address] Urea nitrogen [Mass/Vol] 18 mg/dL Normal 5-21 [facility] Comment on above: Performed By: #### 2 375030, 6308099, 8936219, 0077942, 4927261, 9428729, 73439099, 3940099, 9362088 ####[facility] [address] [place] [address] Anion gap [Moles/Vol] 14 mmol/L Normal 6-16 [facility] Comment on above: Performed By: #### 2 835609, 1527940, 6881397, 9674860, 7824638, 5145420, 77827828, 1317340, 8053814 ####[address] [address] Calcium [Mass/Vol] 8.7 mg/dL Low 8.9-11.1 [facility] emisol Comment on above: Performed By: #### 2 507282, 8441733, 1552849, 4266520, 1553533, 4552889, 22323848, 4703324, 0596183 ####[address] [place] [address] Chloride [Moles/Vol] 103 mmol/L Normal 101-111 [facility] Comment on above: Performed By: #### 2 899878, 4007214, 2275181, 9945689, 4223374, 0305007, 44346240, 4426684, 7164041 ####[address] [place] [address] CO2 [Moles/Vol] 26 mmol/L Normal 21-31 [facility] Mack krystal Comment on above: Performed By: #### 2 471232, 4451014, 5445282, 3124752, 2351433, 9142148, 70662335, 1011256, 8598600 ####[facility] [address] [place] [address] Glucose [Mass/Vol] 156 mg/dL Normal 55-199 [facility] R emisol Comment on above: Result Comment: If t his glucose result represents a fasting glucose, interpretation should refer to the following reference range: 55-99 mg/dL Performed By: #### 2 287791, 6810390, 1711754, 3913667, 7128518, 5433516, 41077629, 8282425, 6230021 ####[facility] [address] [place] [address] Potassium [Moles/Vol] 3.5 mmol/L Normal 3.5-5.3 [facility] C Remisol Comment on above: Performed By: #### 2 211702, 5361974, 2378594, 4265938, 4314452, 3268306, 32017230, 0805564, 3819921 ####[facility] [address] [place] [address] Sodium [Moles/Vol] 139 mmol/L Normal 135-145 [facility] R emisol Comment on above: Performed By: #### 2 342657, 4601702, 1514746, 1650156, 1634963, 7755397, 34567920, 1542965, 8553433 ####[facility] [address] [place] [address] [facility] 12-31-2021 Urea nitrogen/Creatinine [Mass ratio] 20 No Units Normal 10-20 [facility] Comment on above: Performed By: #### 2 770515, 9770375, 8766351, 6852806, 0364725, 6931260, 16275025, 2241570, 4422345 ####[facility] [address] [place] [address] Blood Bank ID#on 12-31-2021 BBID# [id number] Invalid Interpretation Code [facility] Comment on above: Performed By: #### 1 8975121, 48750685, 38004492, 9577810 ####[facility] [address] [place] [address] CBC w/ Auto DiffOrdered By: Des Marie on 12-31-2021 Erythrocyte distribution width (RBC) [Ratio] 13.2 % Normal 10.9-14.2 [facility] Comment on above: Performed By: #### 2 237881, 8201392, 7390719, 9712456, 1964529, 7873979, 00615445, 2319910, 8838147 #### [facility] [address] [place] [address] Hematocrit (Bld) [Volume fraction] 35.8 % Normal 34.0-46.0 [facility]SS Comment on above: Performed By: #### 2 711298, 5509796, 2462619, 0177394, 1060553, 1424338, 08395086, 4523279, 3313496 #### [facility] [address] [place] [address] Hemoglobin (Bld) [Mass/Vol] 12.2 g/dL Normal 12.0-16.0 [facility]eAutoSS Comment on above: Performed By: #### 2 316692, 9980356, 9605212, 1087637, 9325102, 7479430, 83232798, 4345436, 7951827 #### [facility] [address] [place] [address] MCH (RBC) [Entitic mass] 30.4 pg Normal 27.0-34.0 [facility] Comment on above: Performed By: #### 2 750242, 9007379, 2298434, 7185955, 1165059, 9861090, 94424865, 1081853, 7090972 #### [facility] [address] [place] [address] MCHC (RBC) [Mass/Vol] 34.1 g/dL Normal 31.4-36.0 [facility] C [facility]eAutoSS Comment on above: Performed By: #### 2 812496, 4188472, 3261219, 4397851, 8768160, 5111573, 82032253, 4047886, 3357929 #### [facility] [address] [place] [address] MCV (RBC) [Entitic vol] 89.2 fL Normal 80.0-100.0 [facility] Comment on above: Performed By: #### 2 718963, 0740783, 2833823, 3495093, 6049008, 1027963, 42870136, 1675466, 6872512 #### [place] [address] [place] [address] Platelet mean volume (Bld) [Entitic vol] 9.0 fL Normal 6.4-10.8 [facility] Comment on above: Performed By: #### 2 610626, 6654595, 3751025, 4412474, 7184469, 2823091, 41251989, 0352562, 6778116 #### [facility] [facility] [address] [place] [address] Platelets (Bld) [#/Vol] 176.0 E9/L Normal 150.0-500.0 [facility] Comment on above: Performed By: #### 2 341188, 0476543, 8162655, 9929065, 9989777, 4962708, 23692249, 0446458, 3459399 #### [facility] [facility] [address] [place] [address] RBC (Bld) [#/Vol] 4.0 E12/L Low 4.3-5.9 [facility] Comment on above: Performed By: #### 2 468580, 1321913, 1504334, 5009827, 0460909, 7507844, 78466082, 1916655, 7982714 #### [facility] [address] [place] [address] WBC corrected for nucl RBC Auto (Bld) [#/Vol] 7.1 E9/L Normal 4.0-11.0 [facility] Comment on above: Performed By: #### 2 718751, 7534029, 2609847, 5091290, 5866882, 3754212, 78324590, 3533656, 7460722 #### [place] [facility] [address] [place], [place] [address] CHEMISTRYOrdered By: SYSTEM SYSTEM on 12-31-2021 Amphetamines Screen method >1000 ng/mL Ql (U) Negative (12/31/21 9:57 PM) Normal Negative [facility] Barbiturates Screen Ql (U) Negative (12/31/21 9:57 PM) Normal Negative [facility] Benzodiazepines Ql (U) Negative (12/31/21 9:57 PM) Normal Negative [facility] Cocaine Ql (U) Negative (12/31/21 9:57 PM) Normal Negative [facility] Opiates Screen Ql (U) Negative (12/31/21 9:57 PM) Normal Negative [facility] Phencyclidine Screen method >25 ng/mL Ql (U) Negative (12/31/21 9:57 PM) Normal Negative [facility] Tetrahydrocannabinol Screen method >50 ng/mL Ql (U) Negative (12/31/21 9:57 PM) Normal Negative [facility] Albumin/Globulin [Mass ratio] 1.3 {ratio} Normal 1.1 - 2.2 [facility] ALP [Catalytic activity/Vol] 53 [iU]/d Normal 21 - 98 Int._Unit/L [facility] ALT No additional P-5'-P [Catalytic activity/Vol] 25 [iU]/d Normal 6 - 46 Int._Unit/L [facility] AST [Catalytic activity/Vol] 25 [iU]/d Normal 5 - 43 Int._Unit/L [facility] Urea nitrogen/Creatinine [Mass ratio] 20 mg/mg Normal 10 - 20 [facility] COAGULATIONOrdered By: Dirk Headley on 12-31-2021 aPTT Coag (PPP) [Time] 29.5 s Normal 25.1 - 36.5 second(s) [facility] Auto Coag PT Coag (PPP) [Time] 14.8 s High 10.2 - 12.9 second(s) [facility] Auto Coag Consent for Treatmenton 12-04 Consent for Treatment [id number] 1#1.00CD:127 Normal [facility] EthanolOrdered By: SYSTEM SY STEM on 12-31-2021 Ethanol [Mass/Vol] mg/dL Normal <=7 [facility] emisol Comment on above: Performed By: #### 2 757406 ####[facility] [address] [place] [address] Hep Func PanelOrdered By: SY STEM SYSTEM on 12-31-2021 Albumin [Mass/Vol] 3.7 g/dL Normal 3.3-5.0 [facility] emisol Comment on above: Performed By: #### 2 310296, 7398023, 0073258, 8482184, 6542078, 6158423, 06443302, 3428673, 8369414 ####[address] [address] Bilirubin [Mass/Vol] 0.7 mg/dL Normal 0.0-1.1 [facility] Comment on above: Performed By: #### 2 304498, 9826623, 0033027, 1115566, 8111802, 4636896, 70289594, 5297982, 7577660 ####[address] [address] Bilirubin.direct [Mass/Vol] 0.1 mg/dL Normal 0.1-0.4 [facility] Comment on above: Performed By: #### 2 197429, 5913450, 2611545, 1037988, 6890829, 0940816, 12733656, 9010395, 6379462 ####[address] [address] Bilirubin.indirect [Mass or moles/Vol] 0.6 mg/dL Normal 0.1-0.9 [facility] Comment on above: Performed By: #### 2 952658, 5304976, 4018024, 2588711, 7351240, 0977775, 20753209, 9995267, 0210051 ####[address] [address] Globulin (S) [Mass/Vol] 2.8 g/dL Normal 1.4-4.0 [facility] Remisol Comment on above: Performed By: #### 2 000288, 3077216, 8771265, 9309999, 7966585, 1728127, 27326058, 7648377, 7149888 ####[facility] [address] [place] [address] Protein [Mass/Vol] 6.5 g/dL Normal 6.0-7.8 [facility] R emisol Comment on above: Performed By: #### 2 865565, 9810298, 9243663, 0633026, 8702352, 5770546, 24320229, 1945166, 0969724 ####[address] [address] Hep Func Panelon 12-31-2021 Albumin/Globulin (S) [Mass conc ratio] 1.3 Normal 1.1-2.2 [facility] Comment on above: Performed By: #### 2 659509, 7919452, 9606748, 0029981, 3229667, 5535188, 87869365, 6381447, 5043473 ####[address] [address] ALP [Catalytic activity/Vol] 53 Int._Unit/L Normal 21-98 [facility] Comment on above: Performed By: #### 2 180106, 3651343, 0470502, 4070435, 5283831, 2025827, 74216876, 9763498, 1204064 ####[facility] [address] [place] [address] ALT No additional P-5'-P [Catalytic activity/Vol] 25 Int._Unit/L Normal 6-46 [facility] Comment on above: Performed By: #### 2 945781, 2002808, 8800987, 9441393, 0816109, 2055184, 87897744, 3555485, 4930799 ####[address] [address] AST [Catalytic activity/Vol] 25 Int._Unit/L Normal 5-43 [facility] Comment on above: Performed By: #### 2 476066, 2834624, 1545573, 4234403, 8121434, 7648593, 42018876, 2978153, 5740911 ####[facility] [address] [place] [address]153257 Lactic AcidOrdered By: [employer] SYSTEM on 12-31-2021 Lactate [Mass/Vol] 1.7 mmol/L Normal 0.5-2.2 [facility] R emisol Comment on above: Performed By: #### 2 232872, 2066987, 5299874, 0224703, 2563079, 8391233, 62736305, 3393951, 1592244 ####[facility] [address] [place] 9153257 Lipase LevelOrdered By: Mint[employer] SYSTEM on 12-31-2021 Lipase [Catalytic activity/Vol] 31 U/L Normal 13-58 [facility] Remisol Comment on above: Performed By: #### 2 655316, 4773097, 8128722, 3133632, 7858841, 9508868, 39021046, 5224897, 9972944 #### [facility] [address] [place], [place] [address] MagnesiumOrdered By: SYSTEM SYSTEM on 12-31-2021 Magnesium [Mass/Vol] 2.0 mg/dL Normal 1.3-2.4 [facility] Remisol Comment on above: Performed By: #### 2 357496, 0796331, 1591554, 2605360, 6728201, 7462674, 29380841, 6981893, 3551538 ####[facility] [address] [place] 9153257 PT & PTTon 12-31-2021 aPTT Coag (PPP) [Time] 29.5 second(s) Normal 25.1-36.5 [facility] Comment on above: Result Comment: Hepa rin therapeutic range (represented by Anti-Factor Xa activity of 0.2 - 0.4 U/mL) corresponds to PTT of 56.6 - 109.0 sec. Performed By: #### 2 928142, 3104789, 7775806, 7362446, 2919740, 0013554, 00181131, 9460094, 7026953 #### [facility] [address] [place] [address] PT Coag (PPP) [Time] 14.8 second(s) High 10.2-12.9 [facility] Comment on above: Performed By: #### 2 164142, 4649961, 3269624, 6758248, 8233966, 7800701, 49201938, 6209939, 8156026 #### [facility] [address] [place] [address] PT & PTTOrdered By: Dirk aguiar on 12-31-2021 INR Coag (PPP) [Relative time] 1.2 {INR} Invalid Interpretation Code [facility] Auto Coag Comment on above: Result Comment: INR results are specifically intended to assess patients stabilized on long-term Anticoagulation therapy suggested INR?s ?Less Intensive Anticoagulation? 2.0 ? 3.0 Conventional Range 3.0 ? 4.5 Performed By: #### 2 471533, 9471537, 4250175, 2262419, 1433370, 1808816, 97635857, 4886772, 1184799 #### [facility] [address] [place] [address] Pre-Arrival Noteon Pre-Arrival Note Pre-Arrival Summary Name: , moose Current Date: 12/31/2021 18:32:39 EDT Gender: Female Date of : Age: 86 Pre-Arrival Type: EMS ETA: 12/31/2021 18:50:00 EDT Primary Care Physician: Presenting Problem: fall Pre-Arrival User: Referring Source: Location: Completion Date/Time: 12/31/2021 18:20:00 [facility] Emergency Department Pre-Hospital Report Form Vital Signs: BP 189/72, HR 78, SPO2 95% RA Pre-Hospital Report: Pt fell on right leg complaining of right thigh pain. No obvious deformities. PT is on eliquis Treatment in Route: 22 LFA, 0.5 mg dilaudid @ 1755, 0.5 mg dilaudid @ 1800, fluids TKO Response to Treatment: Misc. Issues: [facility] [facility] TroponinOrdered By: PAUL S YSTEM on 12-31-2021 Troponin I.cardiac [Mass/Vol] 5.30 pg/mL Low 10.10-27.10 FT Remisol Comment on above: Result Comment: The 95% CI (Confidence Interval) PPV (Positive Predictive Value) for myocardial infarction in females is 38 pg/mL, in males 51 pg/mL. The results should be used in conjunction with clinical conditions of myocardial infarction. (Access High Sensitivity Troponin I Instructions For Use, Delmy Pace, March 2018) Performed By: #### [id number] ####[facility] [id number] [id number] URINALYSISOrdered By: Dirk sharma on 12-31-2021 Bilirubin Ql (U) Negative (12/31/21 9:57 PM) Normal Negative [facility] UA Auto SS Clarity (U) Clear (12/31/21 9:57 PM) Normal Clear [facility] UA Auto SS Color (U) Straw *ABN* (12/31/21 9:57 PM) Invalid Interpretation Code Yellow [facility] UA Auto SS Epithelial cells.squamous LM.HPF (Urine sed) [#/Area] 0-2 /HPF Normal 0-2/HPF [facility] UA Aut o SS Glucose Test strip (U) [Mass/Vol] Negative (12/31/21 9:57 PM) Normal Negative [facility] UA Auto SS Hemoglobin Ql (U) Trace *ABN* (12/31/21 9:57 PM) Invalid Interpretation Code Negative [facility] UA Auto SS Ketones (U) [Mass/Vol] Negative (12/31/21 9:57 PM) Normal Negative [facility] UA Auto SS [place].plasma/[place] .RBC (Bld) [Mass ratio] 0-3 /HPF Normal 0-3/HPF [facility] UA Auto SS Nitrite Ql (U) Negative (12/31/21 9:57 PM) Normal Negative [facility] UA Auto SS pH (U) 7.0 *NA* (12/31/21 9:57 PM) Invalid Interpretation Code 5.0 - 9.0 [facility] UA Auto SS Protein (U) [Mass/Vol] Negative (12/31/21 9:57 PM) Normal Negative [facility] UA Auto SS Specific gravity (U) [Rel density] 1.010 *NA* (12/31/21 9:57 PM) Invalid Interpretation Code 1.005 - 1.030 [facility] UA Auto SS UA Spec Desc Clean Catch (12/31/21 9:57 PM) Normal [facility] UA Auto SS Urobilinogen Qn (U) 0.5108548 {Daily'U}/dL Normal 0.0 - 1.0 EU/dL [facility] UA Auto SS WBC Auto Ql (U) Negative (12/31/21 9:57 PM) Normal Negative [facility] UA Auto SS WBC LM.HPF (Urine sed) [#/Area] 0-5 /HPF Normal 0-5/HPF [facility] UA Auto SS Ambulatory Visit Summaryon 0 10-23-2021 Ambulatory Visit Summary TORIBIO BETTS :1935 Visit Date:10/23/2021 Ambulatory Visit Instructions Your Diagnosis HTN (hypertension) Type 2 diabetes mellitus Paroxysmal A-fib Mild recurrent major depression HLD (hyperlipidemia) CAD (coronary artery disease) Chronic diastolic heart failure History of CVA in adulthood BMI 24.0-24.9, adult Chronic constipation Age-related macular degeneration, wet, both eyes Your Care Team Attending Physician - Janna MANN MD Primary Care Physician - Janna MANN MD This Is Your Medications List Contact prescribing physician if questions or concerns apixaban (Eliquis 2.5 mg oral tablet) atorvastatin (atorvastatin 40 mg Tab) calcium-vitamin D (calcium-vitamin D 600 mg-400 intl units oral tablet) clopidogrel (Plavix 75 mg Tab) furosemide (Lasix 20 mg Tab) isosorbide dinitrate (isosorbide dinitrate 30 mg oral tablet) magnesium oxide (magnesium oxide 250 mg oral tablet) metoprolol (Metoprolol tartrate 25 mg Tab) multivitamin with minerals (Daily Multi) multivitamin with minerals (PreserVision) omeprazole (omeprazole 20 mg Cap-DR) sertraline (Zoloft 25 mg Tab) Procedures Performed Cardiac catheterization (10/2018), Breast biopsy sample. Discharge Vitals Temperature (Oral) 37.2 ?C Heart Rate (Peripheral) 57 Blood Pressure 124/76 Height 156 cm Height 156.0 cm Weight 60.5 kg Weight 60.5 kg BMI 24.86 What to do next Scheduled Follow-Up Appointments Friday 1:30 PM EDT With: Angelina SMILEY CNP Where: Cardiology Clinic Friday 11:00 AM EDT With: Janna MANN MD Where: [facility] Primary Care Normal [facility] Ambulatory Visit Summary TORIBIO BETTS :1935 Visit Date:10/23/2021 Ambulatory Visit Instructions Your Diagnosis HTN (hypertension) Type 2 diabetes mellitus Paroxysmal A-fib Mild recurrent major depression HLD (hyperlipidemia) CAD (coronary artery disease) Chronic diastolic heart failure History of CVA in adulthood BMI 24.0-24.9, adult Chronic constipation Age-related macular degeneration, wet, both eyes Your Care Team Attending Physician - Janna MANN MD Primary Care Physician - Janna MANN MD This Is Your Medications List Contact prescribing physician if questions or concerns apixaban (Eliquis 2.5 mg oral tablet) atorvastatin (atorvastatin 40 mg Tab) calcium-vitamin D (calcium-vitamin D 600 mg-400 intl units oral tablet) clopidogrel (Plavix 75 mg Tab) furosemide (Lasix 20 mg Tab) isosorbide dinitrate (isosorbide dinitrate 30 mg oral tablet) magnesium oxide (magnesium oxide 250 mg oral tablet) metoprolol (Metoprolol tartrate 25 mg Tab) multivitamin with minerals (Daily Multi) multivitamin with minerals (PreserVision) omeprazole (omeprazole 20 mg Cap-DR) sertraline (Zoloft 25 mg Tab) Procedures Performed Cardiac catheterization (10/2018), Breast biopsy sample. Discharge Vitals Temperature (Oral) 37.2 ?C Heart Rate (Peripheral) 57 Blood Pressure 124/76 Height 156 cm Height 156.0 cm Weight 60.5 kg Weight 60.5 kg BMI 24.86 What to do next Scheduled Follow-Up Appointments Friday 1:30 PM EDT With: Angelina SMILEY CNP Where: Cardiology Clinic Friday 11:00 AM EDT With: Janna MANN MD Where: [facility] Primary Care Normal [facility] Family Medicine Office/Clini c Noteon 10-23-2021 Family Medicine Office/Clinic Note Chief Complaint Patient here with dtr in law for 4 month f/u on htn, chol. Says cardiology stopped Amlodipine 2.5mg on 09-13-21 & started her on Metolprolol on 10-16-21 History of Present Illness Here for med follow up. She has seen cardiology since I last saw her. She is on metoprolol bid. She stopped amlodipine thinking she was supposed to. Review of Systems Constitutional: no fever, chills or sweats Respiratory: no shortness of breath, no cough, Cardiovascular: no chest pain, no palpitations, no edema Physical Exam Vitals & Measurements T: 37.2 ?C(Oral) HR: 57(Peripheral) BP: 124/76 SpO2: 96% HT: 156 cm HT: 156.0 cm WT: 60.5 kg WT: 60.5 kg BMI: 24.86 General: Well developed, well nourished, in no acute distress Eyes: Pupils equal, round, and reactive to light. Conjunctivae and sclerae normal, and extraocular movements intact Ears: TM clear, grossly normal hearing Nose: No deformity, discharge, inflammation, or lesions Mouth: MMM. Oropharynx and posterior pharynx without lesions or exudates. Tongue WNL Neck: Neck supple. No lymphadenopathy. Trachea midline. No thyroid, masses, tenderness, or enlargement noted. No bruit. Lungs: Normal respiratory effort and clear to auscultation Cardio: irregular rhythm, normal rate Abdomen: Soft, non-distended, non-tender Musculoskeletal: No joint swelling or synovitis noted ambulates with cane. Extremity: No clubbing, cyanosis or edema. Neurologic: Grossly normal Skin: No rashes, ulcerations, or suspicious lesions Mental Status: Alert and oriented x3. Normal mood and affect Assessment/Plan 1. HTN (hypertension) (I10: Essential (primary) hypertension) she stopped amlodipine thinking she was supposed to. She is on metoprolol bid now. 2. Type 2 diabetes mellitus (E11.9: Type 2 diabetes mellitus without complications) keep on diet 3. Paroxysmal A-fib (I48.0: Paroxysmal atrial fibrillation) stay on Eliquis 4. Mild recurrent major depression (F33.0: Major depressive disorder, recurrent, mild) stay on sertraline 5. HLD (hyperlipidemia) (E78.5: Hyperlipidemia, unspecified) stay on atorvastatin 6. CAD (coronary artery disease) (I25.10: Atherosclerotic heart disease of koi coronary artery without angina pectoris) No CP 7. Chronic diastolic heart failure (I50.32: Chronic diastolic (congestive) heart failure) EF on echo is 55 to 60% 8. History of CVA in adulthood (Z86.73: Personal history of transient ischemic attack (TIA), and cerebral infarction without residual deficits) stay on Plavix 9. BMI 24.0-24.9, adult (Z68.24: Body mass index [BMI] 24.0-24.9, adult) 10. Chronic constipation (K59.09: Other constipation) stay on metamucil 11. Age-related macular degeneration, wet, both eyes (H35.3230: Exudative age-related macular degeneration, bilateral, stage unspecified) she is getting injections from Dr. García. Orders: amlodipine, 2.5 mg = 1 tab(s), Oral, Daily, # 90 tab(s), Refills(s) 1, Pharmacy: [facility], 154, cm, 03/21/21 11:39:00 EDT, Height/Length Dosing, 59, kg, 03/21/21 11:39:00 EDT, Weight Dosing Follow-up With When Contact Information RYAN MAYERS, RAMSES Baumann In 4 months [facility] [address], [place] [address]- Additional Instructions: Patient Education Hypertension, Adult, Hpau-ia-Htyf Problem List/Past Medical History Ongoing Age-related macular degeneration, wet, both eyes Bradycardia CAD (coronary artery disease) Chronic constipation Chronic diastolic heart failure Daytime hypersomnolence Fall at home Fatigue Gastritis History of CVA in adulthood History of TIAs HLD (hyperlipidemia) HTN (hypertension) Hypokalemia Insomnia Mild recurrent major depression Mitral regurgitation Non-sustained ventricular tachycardia Osteopenia Paroxysmal A-fib Pulmonary hypertension Type 2 diabetes mellitus Ventricular bigeminy Historical Hypercholesteremia Procedure/Surgical History Cardiac catheterization (10/2018), Breast biopsy sample. Medications atorvastatin 40 mg Tab, 40 mg= 1 tab(s), Oral, Bedtime, 1 refills calcium-vitamin D 600 mg-400 intl units oral tablet, 1 tab(s), Oral, Daily Daily Multi, 1 tab(s), Oral, Daily Eliquis 2.5 mg oral tablet, 2.5 mg= 1 tab(s), Oral, BID, 1 refills isosorbide dinitrate 30 mg oral tablet, 30 mg= 1 tab(s), Oral, BID Lasix 20 mg Tab, 20 mg= 1 tab(s), Oral, Daily, 1 refills magnesium oxide 250 mg oral tablet, 250 mg= 1 tab(s), Oral, BID, 3 refills Metoprolol tartrate 25 mg Tab, 25 mg= 1 tab(s), Oral, BID, 3 refills omeprazole 20 mg Cap-DR, 20 mg= 1 cap(s), Oral, Daily, 1 refills Plavix 75 mg Tab, 75 mg= 1 tab(s), Oral, Daily, 3 refills PreserVision, Oral, Daily Zoloft 25 mg Tab, 25 mg= 1 tab(s), Oral, Daily, 3 refills Allergies No Known Allergies Social History Alcohol - Denies Alcohol Use, 06/11/2018 Current, 06/14/2018 Current, Beer, 3-5 times per week, 05/19/2016 Substance Abuse - Denies (more content not included)... Normal [facility] Comment on above: Result Comment: Elec tronically Signed By: RYAN MAYERS, Janna Bhagat\.soledad\Date and Time Signed: 10/23/21 16:16 EDT Patient Educationon 10-24-19 Patient Education Cardiovascular Hypertension, Adult Hypertension is another name for high blood pressure. High blood pressure forces your heart to work harder to pump blood. This can cause problems over time. There are two numbers in a blood pressure reading. There is a top number (systolic) over a bottom number (diastolic). It is best to have a blood pressure that is below 120/80. Healthy choices can help lower your blood pressure, or you may need medicine to help lower it. What are the causes? The cause of this condition is not known. Some conditions may be related to high blood pressure. What increases the risk? ? Smoking. ? Having type 2 diabetes mellitus, high cholesterol, or both. ? Not getting enough exercise or physical activity. ? Being overweight. ? Having too much fat, sugar, calories, or salt (sodium) in your diet. ? Drinking too much alcohol. ? Having long-term (chronic) kidney disease. ? Having a family history of high blood pressure. ? Age. Risk increases with age. ? Race. You may be at higher risk if you are . ? Gender. Men are at higher risk than women before age 45. After age 65, women are at higher risk than men. ? Having obstructive sleep apnea. ? Stress. What are the signs or symptoms? ? High blood pressure may not cause symptoms. Very high blood pressure (hypertensive crisis) may cause: ? Headache. ? Feelings of worry or nervousness (anxiety). ? Shortness of breath. ? Nosebleed. ? A feeling of being sick to your stomach (nausea). ? Throwing up (vomiting). ? Changes in how you see. ? Very bad chest pain. ? Seizures. How is this treated? ? This condition is treated by making healthy lifestyle changes, such as: ? Eating healthy foods. ? Exercising more. ? Drinking less alcohol. ? Your health care provider may prescribe medicine if lifestyle changes are not enough to get your blood pressure under control, and if: ? Your top number is above 130. ? Your bottom number is above 80. ? Your personal target blood pressure may vary. Follow these instructions at home: Eating and drinking ? If told, follow the DASH eating plan. To follow this plan: ? Fill one half of your plate at each meal with fruits and vegetables. ? Fill one fourth of your plate at each meal with whole grains. Whole grains include whole-wheat pasta, brown rice, and whole-grain bread. ? Eat or drink low-fat dairy products, such as skim milk or low-fat yogurt. ? Fill one fourth of your plate at each meal with low-fat (lean) proteins. Low-fat proteins include fish, chicken without skin, eggs, beans, and tofu. ? Avoid fatty meat, cured and processed meat, or chicken with skin. ? Avoid pre-made or processed food. ? Eat less than 1,500 mg of salt each day. ? Do not drink alcohol if: ? Your doctor tells you not to drink. ? You are , may be , or are planning to become . ? If you drink alcohol: ? Limit how much you use to: ? 0?1 drink a day for women. ? 0?2 drinks a day for men. ? Be aware of how much alcohol is in your drink. In the [place] one drink equals one 12 oz bottle of beer (355 mL), one 5 oz glass of wine (148 mL), or one 1? oz glass of hard liquor (44 mL). Lifestyle ? Work with your doctor to stay at a healthy weight or to lose weight. Ask your doctor what the best weight is for you. ? Get at least 30 minutes of exercise most days of the week. This may include walking, swimming, or biking. ? Get at least 30 minutes of exercise that strengthens your muscles (resistance exercise) at least 3 days a week. This may include lifting weights or doing Pilates. ? Do not use any products that contain nicotine or tobacco, such as cigarettes, e-cigarettes, and chewing tobacco. If you need help quitting, ask your doctor. ? Check your blood pressure at home as told by your doctor. ? Keep all follow-up visits as told by your doctor. This is important. Medicines ? Take clpt-lmm-oyiedfq and prescription medicines only as told by your doctor. Follow directions carefully. ? Do not skip doses of blood pressure medicine. The medicine does not work as well if you skip doses. Skipping doses also puts you at risk for problems. ? Ask your doctor about side effects or reactions to medicines that you should watch for. Contact a doctor if you: ? Think you are having a reaction to the medicine you are taking. ? Have headaches that keep coming back (recurring). ? Feel dizzy. ? Have swelling in your ankles. ? Have trouble with your vision. Get help right away if you: ? Get a very bad headache. ? Start to feel mixed up (confused). ? Feel weak or numb. ? Feel faint. ? Have very bad pain in your: ? Chest. ? Belly (abdomen). ? Throw up more than once. ? Have trouble breathing. Summary ? Hypertension is another name for high blood pressure. ? High blood pressure forces your heart to work harder to (more content not included)... Normal [facility] Coding Summary.on 10-22-2021 Coding Summary. [id number] Gh0bWw+PGhlYWQ+PE1FV RFlV28qwHTugG3DV2aJR X2MZZJESBSLCW5BWL5fa DV8PGfzK7YwamLa WpbfpPPyGJ48DGc9CEB5 cZevUHzdgE7bgVUcU0q9 WtPmDG46jX72CQfuODJa EvX1EdQgjmvggJKc K2scNgQczIMiIxl+PHRh YmxlIHdpZHRoPScxMDAl OlDdxImsBB4eWt3mLKQw LWNvbGxhcHNlOiBj b6mvUYYeNPzrJS7jaVjo U8XsjSS8ZUHhc1v0Nc37 dHI+ETWrRGQ5kKtjLWqa k283RoYhs2mzRME1 rBYnLUrlAVP8D46qi4A1 POAqLBFcBPD7sVM3pN2z gSmkmvpjH6MnaTNrJkZ5 RNF0qRTwuH9fkPoe jwvpfT4fAtn+X79AMN4L CGYMGW3ITgg8J2BdNsop dHI+UG02EBZjJC68iCBx zQAke2leuJn6OuQt VHXwKNX1lAflSFawe1Iw XJSfG27rqSJqp6X7DICk vIgmoXWaPdPcwJW7yH0e HDwxdkgha3wqsdbr Biwzs0zjkl59vP68T11y SAnuWEBuOZF8RBPpRBKh qQyqke6xvC8yIg4+IDxj a3kri4kbxGz9OeJq FCRwtxJqsVesOUZ7m3Ar Op65K2JbrDxfg1FoLzz4 nl98pZEcf3M5dAD1MGtq SYNekU2eGVjxHpK0 YDExDgPvbA79dBDfAYlp Us9afKvxuExfRU6iIDNc vpndUOKtdN8rITXqoEZd vOggGE6rYFPuebja i227KkHzFJD1CUVpkDUh S0PpbN7sJaOvNMJqDKSk T6GcmRIcOJfrN884INze RfL0VADjtyRnT1Ia LWIjfMxgJdA0z7W7Qh3F e4BrabkaBWT8JIbqZBGd PuVzRrXxLqA0S3QsRjm4 XQZqsZmjVG6nD8Uv GEDwavfpwhdmtWS5RFQo OWAohT14uNXjQTldYw0v r7P4c052EGBhFPJoxF78 Hg9gvVgmTEHiaWGL qK4kodjwf6iaymagQqCb LZXbDVh8DOv3NVSecYeb ObJkVRV2AuA9WUP9xBNn pM8zcPaekbtxxC3c Oyc+C20lxB3vWKE5DKC6 rrspHGTjasFlOD13WC68 O0QfQcirvWDeoVL+PGRp njWwpBxlYW6jYaNv d8ffn2AvSSxnS7XeGNYf SFcgNmv4JDIgIWM3nDR9 rK1sPDLrKQdcj3K5sYA5 O4RlvwUiaj1up7km NPPxYIizP55ycOYhj1U7 QDXjaGC9WGZyjItfTpFu mX88Chv+FJTmhEvna7Yr Yjscb5vrn9drxQi4 IjMwJSIgdmFsaWduPSJ0 k3XoOf70K23nRMduTCGj GJLkRTOxSJPgrOpxpr9b oO1hWw2+PGNvbCB3 fEO4nM2mTAQlOwJ1KYoh Z941SvIluEGcEkynj5jt e6nfcWq8VdWlDFGldtDi rXbkIQM9k1ChOa90 U68qAGuwXDJxFSUxZAUs HBAumNybph1kiR2lKg1+ EI0id0qbvo59xP56kNM+ OLHbTIG5mZatKNgi QRLzoW2lQBwnDoC0ALSx GoOihK39fXUpQHiuRf2m rGiodJlzAN9bXLUstzpk x575CyOcw2edIEZl qDAbIDcfLGW0W03kf7Y5 HDEhNCXbTYO8yQJ7dU3g bGlnbjogbGVmdDsgdmVy bLwiWDexLSvvW427 IHRvcDsnPlBhdGllbnQg IiBqQIa2S8HoUxx6FMWx bQbwJP2arSZaYKsxMb0d tVxyvYdkZV5dRNLm riwxm212VyOva8yxWULq uGNzBPriAXY4P63wp9N5 XLLyLAGiOCA7wVD3tV0x bGlnbjogbGVmdDsg jzRneDipEObaUSqbT089 IHRvcDsnPkJpcnRoIERh uEM4DL90IK27dFJaq3T4 ePZ5R0OhMNUaabhv ulsjpWF9NBWzXNGykW58 Jg5rtTjbLx5mBAGgRJY8 JJUiaPWhV7WcdZ7vVmEj XLWjXUYyK2ZfhJHy ALkxW571FAhaNwU2BTPu fyBsU0CqQFNbeTzhQnI9 h5Y6Qc9VV3M0HI35GQ10 sJIkd7O4qIP6I6Xx TRVjabojhpkiqFU7VKKe OBWmwL04Pq0qwIivTx3l FYYqKSH7DFTzqYXtY2So gQ9pTpRzTWThCHGq U6TspRWhQNcpZ739CMoo AgZ3SJKjbpDfF8KqMKSv nWoxWgO2l7N5Br9MMDj0 TJ79LM86fHFaj9O1 fXL5X9MpMXEntmvlklan aUC9NHZrGKHhqD71Lw4d yUhjUz4aOMUqYNJ4NEGz vZPkJ0QjtL1gEeAf TYQwUUIdZ9CdzEHjTGlr F885RFqzTbW3IIZarsEk X5XgHUNhqIvzQoX1b6P7 Ws7SHSLyJO26KOW9 bCH4CY31OQ28M8RfLwwa dGFibGU+PHRhYmxlIHdp ZHRoPScxMDAlJyBzdHls BW3gRk0hXHPaSQOb rLaymAJdLnXob2djMKIi GTdmNB9ooZihI4SspPA9 DERlc8d8Uw36D52aB4Bg dXA+EVZnhMO2uPH0 aA1qDvSjUbF4LCbaQ312 WkGdvYKsKnoer6seo3ef uMr7OuR0SQDgmrKkjQsw BHR6c3HcDs96X81r IHdpZHRoPSIxNSUiIHZh fLnkfz8jrN4hUj1+PGNv hVV1hZN8mL0qOdLsBoM8 JTicI866OoDmvPZu Jhgws4foo7nyjHl1VnEb QVCwjqLraIpdQCE5p3Ep Dq36J0DcvJtzl6VdAdk3 ix82kGPru5M5eGP9 L7CcRHHpmqeomSMdfKwn IX1aBDEjftddOFVbzJ3a SBNcS8m4OmNzFhG9LSmf S8KzbhE7SUHyiXSx TCatRRI0R41qs4Q1ZVYs QJSxJBG3fZX3aP4tiBwb bjogbGVmdDsgdmVydGlj EWqvBIbuR711VZVp pMbjCAGbkS7zPVVjnBBe wCqzQE7gKQSybxpkWzEV LBQbHNZHBSJOJ8aXPLF9 P9SyXnn8BXWkwDof XY6eeHZgSWorFc8hmDki iLhqBD1iWLZxnwwxBFKs kB4iCAEdpUTgiRyrVO1y HQQmoqinm888AjHj RNW3NPOpbZDkI2HfrI7h AyCyZWYfWVRwL5MowBTc DZnqC406HYwmKyZ4QNEc unDkZ5VnWYKxzDuh MbV3u8C0Xj9wVp7tWJ1o KCB5WE40OQ03nZDoo5C1 qWA3B8FfWJGdsnxeevvd wRE9YMJpBOYbjI65 tNTzGRwfSg6el8V8q167 ROOeKYQjiA18Wf5uuCxo OOFfxZWFyV8zwsfso2cf cjogIzAwMDAwMDt0 MAn5WCEteVioNxTjTIK9 PpI6JUB0fWJneD6bcNtj vniwqH9jCvr+ODcgWWVh miQ7L5PkLpv7OJTs eNphVH4byXIkIIxzDw0a wZhopIqsSW7cQFGlszne IJGjjT6hGNBheHUdzFsu ZT5gJQTnsukky875 CaLgNKZ9TPKdsLJdO4Tz sH0uScUzXPFdRYCoX6Xt kEXmVXwkU661REvlUcC7 YAEcjvMiA2FqTXLs rPlbSrS5d2N4Sl6DYH4c dVZ0M2UgLgc8UGKdvDpl ZM0siARsZRsdTn2cfSkn qZvnLG5mLPDylzwz YUDeiC4tVDQvmIGloVsg LJ8oJFPvalxke635FbVi EWN1RXJsrOFvR2AwbT6d LaUgLTGjYSHhJ0Si tHRpENjrM870NPmjJdB6 YTVpegZaZ7LpISPxzLxe LwL7z8S3Fo1XhSVsJXYx CB06WZ17TO50C4Dh PjwvdGFibGU+PHRhYmxl IHdpZHRoPScxMDAlJyBz uRasRH1mJx6fEOFpXRYq fWyyuVOlHhNfo7sy SNGxXFcrPR8rcSggG6Mj yCU8SHTzh8g6Wp01C12d Z4EotMK+TBWyuKI8iJM6 iC0gTaAjGqS8KQdc N782FzPcwJZlDnerr8bv e5eiyQh0VfEuUMHcnbBz eKlkXBD6z5FvBb52Z48h IHdpZHRoPSIyMCUi MUQgvLeaph3rrC7rSv0+ WPVvhHL9iCG5jV4vZvVo TdV0CZtzG723ArWmhWMe HjivY90gH1UeqLJ+ VUClXdp0DLGbjKlxIO0w eMRlARcsVw9oTCK7TmAd DsJtRUkaR5AsFWNgisdu beuawKZ4SIUuLKPk eY54Lb1vkVnhCv1dEPQm TVM3OIZzwTGnL8KjpX4t SzGpKMHaZUUzX4MurQVx DVcxR093CYffIkH0 AKGleiNeU7JhGWOrrPtf GjH7j9V3Rv1CoXnswOKv OH3rFuVlOUz8Y3MgVje0 PMZrcSlqYO9ghKNe UGkeFu8ilPeatMerUU8l YZEvgmcwb235KuFtw3fw TSIvbQKoYQfaYKG4P38u w9L0NNGfLGXsPOV7 iLK1jZ5fpAnhpbqkmFLe dDsgdmVydGljYWwtYWxp F252HYEzbVhmPqKMJrx9 W7BtMco5SKCwiMvq UG8ipRBwMCjyTw3neHfq fWidDX2iVGIouqjpb433 CiJun1mhVOYteISxAWhz JUH0R00oe9D4LLBu UPKiQEC0jDF8pV9nxAgc bjogbGVmdDsgdmVydGlj YIddFRsfA105HRLbyBuq Kl2JKcd4Q1YbRqx1 OHCssXgdGK7fqQOvTDqq Mj7slIhhtQboOL6vZUNa kezew776RsFhq9nrUAOa gZIlKEqsBWW8Y91j q2H4SMKtVTFxZLT5hFB8 dN4ptFkarpmxxVPqwFfe scRvzGjqLApvWIukQ293 IHRvcDsnPlBheWVy OjwvdGQ+XG59bz18Y6Ko UntjVui3BNNdBHO6bCR2 yI8iVGNuJTzvv2G0hZP6 Z2DrwzSrrb8rm4zy YXBz (more content not included)... Normal [facility] Heart and Vascular Office/Cl [facility] Noteon 10-21-2021 Heart and Vascular Office/Clinic Note Chief Complaint Follow Up History of Present Illness Toribio Betts is a 86-year-old female with CAD, remote PCI, normal LV function, heart failure with preserved ejection fraction, paroxysmal atrial fibrillation on NOAC, mitral valve insufficiency, hypertension, hyperlipidemia, and recent CVA. Patient had a Holter monitor and echocardiogram. The echocardiogram had normal LV and RV with pseudonormal diastolic filling and mild to moderate mitral regurgitation with normal RVSP. The Holter monitor showed premature ventricular contractions totaling 13.8% of heartbeats, some slow 3-4 beats of ventricular arrhythmia. She is accompanied by an adult female. She states that she has not had any improvement or decline in her condition. She also notes increased fatigue, including daytime drowsiness. She denies any dyspnea or chest discomfort. In regard to hypertension, her readings range from 100/52 mmHg to 160/68 mmHg. Most of her readings are in the 120-130 systolic range. Her blood pressure was elevated in office today, she recalls that her blood pressure was elevated at her previous appointment as well. She believes that she has been on beta-blockers in the past such as metoprolol or carvedilol. She is unsure why this medication was discontinued. Review of Systems Constitutional: no fever, no chills, no weakness, no fatigue Respiratory: no shortness of breath, no cough, no orthopnea, no wheezing Cardiovascular: no chest pain, no palpitations, no edema Neuro: no dizziness no light headed no syncope Additional ROS info: Except as noted in the above Review of Systems and in the History of Present Illness all other systems have been reviewed and are negative or noncontributory. Physical Exam Vitals & Measurements HR: 80(Peripheral) RR: 18 BP: 168/70 SpO2: 96% HT: 154 cm HT: 154.0 cm WT: 60 kg WT: 60.0 kg BMI: 25.3 Constitutional: no fever, no chills, no weakness, no fatigue Respiratory: no shortness of breath, no cough, no orthopnea, no wheezing Cardiovascular: no chest pain, no palpitations, no edema Neuro: no dizziness no light headed no syncope Additional ROS info: Except as noted in the above Review of Systems and in the History of Present Illness all other systems have been reviewed and are negative or noncontributory. Assessment/Plan 1. PVCs We will start metoprolol, she is already on treatment for the CAD with Plavix, atorvastatin, and isosorbide. 2. Hypertension She is already taking amlodipine and isosorbide, we are adding metoprolol. 1. CAD (coronary artery disease) (I25.10: Atherosclerotic heart disease of koi coronary artery without angina pectoris) 2. Bradycardia (R00.1: Bradycardia, unspecified) 3. HTN (hypertension) (I10: Essential (primary) hypertension) 4. HLD (hyperlipidemia) (E78.5: Hyperlipidemia, unspecified) Follow Up: 3 months Documentation services were performed after patient or guardian consented to allow [employer] to record this visit. HANNAH marketing proposal specialist and provider reviewed before signing. HANNAH: Apoorva Apodaca. Follow-up No qualifying data available Problem List/Past Medical History Ongoing Bradycardia CAD (coronary artery disease) Chronic constipation Chronic diastolic heart failure Daytime hypersomnolence Fall at home Fatigue Gastritis History of CVA in adulthood History of TIAs HLD (hyperlipidemia) HTN (hypertension) Hypokalemia Insomnia Mild recurrent major depression Mitral regurgitation Non-sustained ventricular tachycardia Osteopenia Paroxysmal A-fib Pulmonary hypertension Type 2 diabetes mellitus Ventricular bigeminy Historical Hypercholesteremia Procedure/Surgical History Cardiac catheterization (10/2018), Breast biopsy sample. Medications amLODIPine 2.5 mg Tab, 2.5 mg= 1 tab(s), Oral, Daily, 1 refills atorvastatin 40 mg Tab, 40 mg= 1 tab(s), Oral, Bedtime, 1 refills calcium-vitamin D 600 mg-400 intl units oral tablet, 1 tab(s), Oral, Daily Daily Multi, 1 tab(s), Oral, Daily Eliquis 2.5 mg oral tablet, 2.5 mg= 1 tab(s), Oral, BID, 1 refills isosorbide dinitrate 30 mg oral tablet, 30 mg= 1 tab(s), Oral, BID Lasix 20 mg Tab, 20 mg= 1 tab(s), Oral, Daily, 1 refills magnesium oxide 250 mg oral tablet, 250 mg= 1 tab(s), Oral, BID, 3 refills Metoprolol tartrate 25 mg Tab, 25 mg= 1 tab(s), Oral, BID, 3 refills omeprazole 20 mg Cap-DR, 20 mg= 1 cap(s), Oral, Daily, 1 refills Plavix 75 mg Tab, 75 mg= 1 tab(s), Oral, Daily, 3 refills PreserVision, Oral, Daily Zoloft 25 mg Tab, 25 mg= 1 tab(s), Oral, Daily, 3 refills Allergies No Known Allergies Social History Alcohol - Denies Alcohol Use, 06/11/2018 Current, 06/14/2018 Current, Beer, 3-5 times per week, 05/19/2016 Substance Abuse - Denies Substance Abuse, 03/30/2015 Tobacco - Denies Tobacco Use, 02/16/2019 Never (less than 100 in lifetime) Tobacco Use:. Never Smokeless Tobacco Use:., 02/09/2021 Family History Crohn's disease: Mother. Diabete (more content not included)... [facility] Comment on above: Result Comment: Elec tronically Signed By: Angella MAYERS, Axel Bravo\.br\Date and Time Signed: 10/21/21 08:07 EDT\.br\Electronically Co-Signed By: Apoorva Apodaca\.br\Date and Time Co-Signed: 10/09/21 19:13 EST Consent for Treatmenton 03-0 Consent for Treatment [id number] 20 [id number] #1.00CD:[address] [facility] Progress Note-Physicianon 03 -08-2022 Progress Note-Physician [id number] 8#1.00CD:127 Normal [facility] Coding Summary.on 10-03-2021 Coding Summary. CD:[id number] Gh0bWw+PGhlYWQ+PE1FV QVrI07cwALzeU5NX0tCA Q7KOSMWANXLBP7GWD5uy KD8MCgmI4ZdbmLs AijahYHtAW92QUu7OKF6 lJljEWbxpR9llMAeB4z7 MfUjVY01oD35NUmkNEMk UzO4WtTtjcqxuVOn Q0xoSyQfwAAcHbk+PHRh YmxlIHdpZHRoPScxMDAl RtPofQgsCP9xAj7kEQMu LWNvbGxhcHNlOiBj h9cbHRGiQVxfFB0nbJic G2VlcAZ3ANDpn4g0Wh76 dHI+LTGnACR7wPvnHDfg h839CcTkj6osPLB6 mVIcNLbpLKM0S87sk4T4 ZPQaOZJmGEL4eZV6vC1t tLxmrbkyS0NweVFcXsJ8 DLA7jQAjeM8qiVtj qocmvY4dZio+Z15RSR5G DZDNLJ4ORbm8S8JlEkjy dHI+RZ32KCZvSF03yCMz lCAjx1ovjJi6DfNe MFNwRKX9oRhjBJarh1Mk FAXjO08zjCBrf2E4RCCk xJnqrQZyWbRtoUV3oQ7t CIpkltoay8olzobx Qjhxl1ljin68mT73Y42o REkxJWQdEGN6AQIeRVEd gOgwnn5ppA2qVj6+IDxj n0tlk7icaHl7JxUa OGBczfEucXptZGV7t0Ot Gh43Y7ScjXwlk9XoJkj2 zc08oJLtw8I2pYI6HSmw FNQjgX1qRQxaTcI7 KNAlGeRnyG85wBTqBUku Po0kpUjbuZxmYZ4nCRXt fttoIMDpaF4hNQErnUKk oDifGT4zLYKnnjzx x521RjZiLBL5NPEkzKRn E9PsvV4nMaAvNVBjNDXi V1RzsHZsYVomU621DCsf GtP5BQHfmhVzF6Ug MCMleXdbUqE8t9Z4Fk2M e2EmlylyJHR8XBipBUQi ApUbDzUzTzW9L5MeQpb7 FWShmEdjVF8kI3Lj QNAgrodhfmhtaZN2UCSx HDNbvM23uOUfGZlfXk6p m0V3x771LDDoPLUnuG54 Ov9ckIdhIEOkxOUT gM1muwdvv4mowmfxJhWi ZGZoFBx3LEc4TVCsuNwk GmZgDOW6VyA8QBE8zGRa rF9klOstqktjsD2c Oyc+W09gsG9dDTG2GTP0 ghzbZXWdgzHsRM23TW05 Z3CzMxdhoPWphMH+PGRp jeEpxQisIG7cIiXc e3rjj9QsYZnaC9PfFKIa ICauHvv1OXDwUJG5zTS3 eG3iDTBhWKbfv1D3aWA0 A1ZbfhXwcj8ra4ul GYPvRZoxL37kuSMjn5T5 OOQuuQB5AMBhhJuqJhEb iS51Gxd+MZLrxApxr6Bt Gulua7giw8hpvPl6 IjMwJSIgdmFsaWduPSJ0 w1YjJl06S31rFXofYHGj MYDkZCKuGDFqtRybpf0d nY7bOh5+PGNvbCB3 uNX5xJ7eTDLkKrC3FJmq L753CeLvxZKoJozte2fy v3atsMz2PyNvIJDefzVk oTuyQVX2n4FhFh92 Q98dEJpsYNIjFYQdHAPn PBBmkFehjj8neV3eYz6+ UG9ih3rajr24cS81nDW+ FIXfXOB7bOhvHJll EGZyhM9lBSgvJlU5MGEv RnJfgW33hYSiQTyoJh4p aKbqcMfkGG5gYBKnvfda b923JiVqe1hbIZFf eBDxGLqyBYQ4T82wr9D1 PMJxKPOtAJB0lAG4cZ0v bGlnbjogbGVmdDsgdmVy uNskCVhtSFjpN509 IHRvcDsnPlBhdGllbnQg HlSsVPa2O9ZuTfv9IMNu rXpkFK5cvFIlSKbcTl2d yLqroNveGQ1pGZQc rvqhz705PxQzp3uuTTIs cNNyFDnoYYU1B65xf6W2 FPDqGMShXOY5eTR1bA1b bGlnbjogbGVmdDsg nrUueLnwHYioJQbvW456 IHRvcDsnPkJpcnRoIERh yNZ1LQ45ET48aZHme9Y7 fDT9G7YkKNTzezow gufumSF1INXeMHUzpJ36 Yo1wqJdmAe3hUBYrGFJ1 VEBtxDFlO3EdrZ0nXeGk YCGoNXWwR1KpyGBe FPjbD566ORzzQyZ6WSEb jbHpO6DwMOWajIcxNqW2 g6M7Sq7JW6E1JU41BG33 uLYux2Z6oWD8C9Bh KBXkocfcwjfwsAN4GWZg LEHrdD81La2fuIqrMi8f TJJwHUJ2UBZyaYQeB6Qv dM0nZpAuPYSjFDDo Q1OjnIAlQWynH680HMrn QmB0QMWzngUfE4AqFOIh kHfqAtP8p3R4Th4EDQh6 MI34PH43pVGqz3C4 fTK5P8YtZSTanvxwkohc vLT6BMGrYCXaxL44Di2q jIzyIl6xECMpHJF1XYSt yAObN6XdrS0iMpHy BGReNWIjO0VclWOoUPqx N053EUqqPoW6NRHzzcWo U8GpUNYzfHvyAxO8d3U1 Et3YPYVsOL04WCV7 lAH4EJ44JA65I5ZmPzba dGFibGU+PHRhYmxlIHdp ZHRoPScxMDAlJyBzdHls VR1bLm8wMGWzWYEx oHvcvXCpHvPtm2dkPRJr XTtsOE3bmMviA6HmvFI9 DHJej1m4Qf20H60rZ3Xk dXA+NUEhmBP6tKR2 oA2mLyUlBoM0IAuaM399 MvJjxOCcYhyah5sdn4nx eBb2MaZ2AGZbzjPqhOqx OOZ6o4IjLt92U10l IHdpZHRoPSIxNSUiIHZh dXvglc8hoC6mOz6+PGNv lDL8kFL2eW2kKmZbLaQ8 WXliN764HmHzbYPv Ayiep4wak7ezbBk2YsHy FSHnraPqyDodRBY6s3Hs Er53C0KhzEeon9TpYxo7 yw86mOVcb6U3lIW2 C4AfRTWynvkgiAHctJdb CZ3xTMNfgpxjRGQjcU7t PRXfZ2o6JpDmUjL5KHfh T7FmkvM2RBGmzNAn NSdwGDH6W77ad9Z3RMZr LENjGGQ6oCN5eV0hlSka bjogbGVmdDsgdmVydGlj BWhcZFirZ292LMBh pLabLIXwpT4jGFRweVJu wBpcBM3aZBCipkurTnZX JAOlPUAQKRMZQ7sPMVT5 Y0DrKxo7NSDopAul XT4alTDbZTveCs8awPbm mRnoBF6pKRHrduqzCVXs aD8vHTRlfENpfBcmAF7p EXZhcpxoa748HrTa CLE6ERFtoTWiY9MeiM3f EqToYUFkZOPkN1FseKVw JBbtR222PAacBbC4BTFr vcIvF2FzCFWzmEvd ZvR9f5R1Df0xQh5gEF6w CHW5AB93WU48eLQrc5I6 kXS9P7IwXBYvqesthhcd wZV0AWXoSWYhyV61 kPSgIOvwGj8ks4U8a902 GQLvJYWpxU66Sq5tlKha SJRepNEWyY2exnzah1ie cjogIzAwMDAwMDt0 WTt4BQFjiEegWaIjTGX5 SwF7AHS4qJSupF5hzKkt rmjotN6eNvb+ODcgWWVh ypG3U7WuMvs5WZNe hGzeMG9evYHcAMmcDj7j xLrtgMgxQF2pYLNzjpyu OPXzmB3hPYOyhKVvrUcy HE2jETHbbpddb588 OoYcIDI7RNEskUWkX4Zx lG8xSmVpNJAhCTAdP2Bc cPJjDEylD992ZSssTlU7 VHPcacWeF6YvHXVj qSfeUfN8d9Z7Ig4SPU5m cHC5V5NfCnv0BZRwsDnu CQ8chXVwGJrrKr0qsRpf uGvqTB3mPONkglje XJOqnN0qXLOebEAfbCkz WI0jSNBcntwqu666XvZu KSL9BZQgoDMxX5VxjO9c GqByPLLeUOXnA4Iy sSNgCIfkB229MSvhBcC7 WIDyntWxI7VuKKDldYpn AyG0a7C2Wt7AhUOcNGLi LE80ZA22VO45E8Tk PjwvdGFibGU+PHRhYmxl IHdpZHRoPScxMDAlJyBz aKtfQZ7eRs4eZRXcFNJg eElejOBcOeWxa6dp LCNaOWgcLY3pwRxzZ7Wz dEA9PTDua2i1Vo05A98v A2QmqWP+UMCnhDP4tXV2 tN9jQbIuEiW9ZDxs Y085LiIrpCLpUzuxi9ys t1tkhCu5OeLwZOSpgnYa qJjdDEM8j4QePn12F15q IHdpZHRoPSIyMCUi GPOpuEafzt5srG3vTe9+ PGPkzVK9fQD3gJ9kMoWf UwU2VSpmL767WfDliHGu NvhhL22xJ3OzhAG+ CZNtKec0OMReeFuxIP2z iHCnAExiEd9sFHO8QgBo OxYzYYjlD8ScBHRxvupe ylssfLH6MRZuPYYv nA55Tn4iiYyxQr1lWRIv MXY8MNUlcGWaL0ZyrX0u HxZlPZIaBRZqO4CmvDPc JNrlA753RGgdLvM7 MJLaijXhW2VqILDpnEjp LwI7m7H7Dp6HmHiztUKp ED9xAaDhCPv2E5MwBpo6 XEVhdFoxMT6xmSJy OTpkAl6zxPqpgQdlXR1k JNHcuwxhq207ZdHbw4mh BOWaoCZlGTnaTAM5G25e f1E6JRWiGBUiZXY0 lKY7uV2xfQfjuglrvCZq dDsgdmVydGljYWwtYWxp V651LZFbtQqkRxOMFgl6 H8WyMrs7CCIgdWxv ZZ5pvVBtTKbfHu3hoWxy wAfxFP8hPMKrocnhg689 KzKzl6iyGEUreKUdZGxn SVK3N75td8O2YUEg QJMuGVU5qQA6gN2iwZig bjogbGVmdDsgdmVydGlj XUdfGQxcE565EMMeuCvc Ih5JLkp5G2OzUbs6 TZJceWhxCA0gxCHkNBxi Mn2kkBmwwQsbVH4lJOJe negkd032ZfCsa0brTVIg lXMvQObsIDD9N85w d7R7ZQUzOFXmVCY4pGW2 rK3slSkuhqqyjLOgtNnv oeQsgUgpZOdkPUkuS133 IHRvcDsnPlBheWVy OjwvdGQ+AI18xt82Q6Ed QxqiEhw8MOZiSEF8oUH6 yH5mMIXaIRohr5I7bFW3 D7ZxubLhnc2yo0qe YXBz (more content not included)... Normal [facility] Consent for Treatmenton 09-05 Consent for Treatment [id number] #1.00CD:[address] [facility] Holter Monitoron 09-26-2021 Holter Monitor [id number] #1.00CD:[address] [facility] Coding Summary.on 09-18-2021 Coding Summary. CD:[id number] Gh0bWw+PGhlYWQ+PE1FV CMqM97ucDWpkM3WM2cHZ C9VRRXHNHVUMR4VSQ9zk HG6WMyqO9EbixPr WbhlxAJzHF06JBx6BTP1 qTvzJKgcpS5pmOUzO0l4 HvYbED56eK72JZmmUKQz DjS6IkRsckakwFKp Y0uaGaIpiCYbAwi+PHRh YmxlIHdpZHRoPScxMDAl AhSfiAnxTM8mNm8bEWUw LWNvbGxhcHNlOiBj e2tgLFEsHLziBL1wkCzc L7QelXV3MIZgo8v7Ji04 dHI+EDLwVFY8tDqyFZvs n460StCgh7ccPMK5 kUCvWMobWKT9Q15bm0Y4 GYQuOJFjBUE6nGU2cR4p wTxboueqU2LvkXAyBkF7 PIV8lMYdqS2yjBai srrzoW3uDgw+P85VCC1E EVXDBI3KOeb2G3FaEqzg dHI+DN54ARJdBZ45kWHi qTJpg5mneCn3IhVi ZAAhOAX8rEaxBHqgq2Ej BSWcG00tvDFxj3A1SVZz sQyvuOZiAqEpuXP2wK1a XScithroo9gqyjlc Yzguc0kqbe28yC47Q39r JJbqRIZiVSK1YQYyWMRb kBudeg6xrB0vUq3+IDxj e5ujt0cbyXo1QaBd SPIqqrKsyLggNAT9z4Ni Up31Y4DcmQdol0QbZvc9 uk12jGOrg5U6tDE4CPkr KDSujA2mNFsoQmT4 PYUfBbCvdS11bLApHSir Co0oiBtvjGeqDZ9oTURv thsjJIMdiK2wYEZshDOv cFheHN6qXENwifnh o843HqIuSZR2NELtuSIc R2AntA5pErJsYEAaORRp Y4XeyWMuGTivS215RIff ReC6RZCpzoMpA0Wc YUQpfSqrKfF7u1N6Uy0K n9CvwqclSCD8KDziRZQb FyD6GsPtFrY6S1YiWer3 ZLPxtFplNL6aP6Oz AFEutocrvtlloYY8MQVo CMEzfH13fNElTBzwAl7m z7F1f424RLWrYXLfrZ90 Zm4wyJtsCVFuyZXD qS0oyswko5pemcpiWeSp VTOeJJt9RIc2UPKpbAce KqLxIQX8WhW1KLI5mHFk uP3stWpbisctyQ1n Oyc+S52jpE0xMAW1JHU7 iuytKDUmqqOlGU82SI60 R2KeMfhlsIJpvPQ+PGRp zbPihPaoEO2hEvWe z4mpg1IgKTqxY3KmSSFb SKagHoq7YPQhPSA6gKO5 hA8nBLTjZKlqa9Z1iWZ1 D0VykvRfvh5fu0cj WDHnNEsyZ36bjEVww9F1 DYOxnXM0RUUxbSziDrYn cB35Cjm+GUPlwRrct8Iq Vsjho7bnk9ixaQp1 IjMwJSIgdmFsaWduPSJ0 p9WiJt62J66eHRkhYVMa AKUuUVGdGEGctFrbri6w pC6tHt7+PGNvbCB3 hIQ7qQ5iZGEzXvF8PSlz C093JmTmrZRlUcvka0bd f1kqyXa0SeOdNOOxxwHa nLnpJZJ3r3DeYx35 C44gEIqkXRXjNMFeYJIw WAVvkZidjy6hyT1hOa5+ YR0hb0ruxn75yX19hFU+ YIHvGQK6nDfdGZip GUFamF5kANsoKuS7EIZs MtXhbP30cQDmXKfkEd4w kDrwzNmvFH5aPNWrzaou g077MvVch6ypYVHv sHOvEEnzQVV1Y15fh4B4 HGMnFPVpMAD6dHN6vM1o bGlnbjogbGVmdDsgdmVy jQoxCKdfRLkhB403 IHRvcDsnPlBhdGllbnQg LsMuCLn9Q4EpXml5LDUk nXfeKB1gwEWrKXeeNd6t tBzxjZdzDW2kVBMr pjxuc491FgMpl8ywXPVq wABaOGvbMBC2W68tr0Y5 WHVuPLQkSQT0jPZ2cV9s bGlnbjogbGVmdDsg ckLmcDzlDAmvMAlrJ861 IHRvcDsnPkJpcnRoIERh wCM3DY98IB83kWLdz4C8 yEL8H6PfHASodzob cglmcWF7QEStFGMqlT00 Al4ckEmwPw3pOYIwOUG9 CZMqsNOsO2TfvX2jHfDv LPQqMNIlP6NgaBLk AKmdL814EHwnBcR3OVIq yxVnA1AyFFZwsIpbIwU3 t3W4Uf2WA2J6FA89TP61 vUInu0L3uKF6Y3Tf HHZhpdpyrlhivJW1NZWq DHVemA65Qg7seDueYk4a EIYgGRG0ZOSxtULjI7Mg gK4bJsWfPWGpKVYi T1KbmJRqDPisA663VGyc KtV4ETTmcbDeY1GzULEy lRbpMgT6m6M3Fs7XLPv6 CY57WL43hKFxn4S1 xBX9M9BgXYBpkzpaexww aRU3QSSvIPCifM16Xv4w pBluHs8vWIDfETB3GQUa aVNqI6BmaT9wLgNj NNYmGPXpN4IipIXhSAmq A696ZQibSlU5IVEkvgNb A4BkOGQxlDsnBbY4g6Q4 Nk9HJDNkHW38JWP2 vHQ2BC17SY85Z6EpScpd dGFibGU+PHRhYmxlIHdp ZHRoPScxMDAlJyBzdHls NO1vAl1yTYLaRUIz sXdmnROxToAlv1lgPWOg WDuhXW8cqDyaE7IjyTD5 FKHvr0g1Lu24C08tC2Ft dXA+HFRhnOT1rJP4 fS3yIiNzRyD1ZThnI356 CiUpxNRuMjtgn5sju1ox rWl2VgO1ESHjavEprQah SEF1c7WgOr86T49a IHdpZHRoPSIxNSUiIHZh kQmfoj7eaY7vTz5+PGNv rSD5bPS5lC7mFySaZeV7 JYxuW751RmKebXNq Jmdko8ysd9kvmKa8WeYr QDUzzwHpqHqwAMZ1j1Rp Tc23F8JjwQyqm8QpZqt6 pp71qJRaf9S0sGW9 F8FoZMHkohajyEVbdUmu FV2zOJUjodtaWJZiqJ5r YROnD0v8GiMvKyH1OIzp M9KhmwC5BVShqHEx HUkrZKZ0L26mb1H6FJBd VDXzBQX6oHL4qZ2iwPwj bjogbGVmdDsgdmVydGlj QUsyNXwxK454MVMl uAsjKOXqkC6bLAFljLJv mWdjMN4cBJThvquhRtTL OGUoKLPMTTBAV8oKZPO7 N8JcGtx7VOLqqZoj OT0suYFmHYbbYw5uyPyr mPwoGU9qYEGgmwdhONRn tG2vIPQpkTRktVnvOX3i NUTszlxkh746DrJw KDE2MQWrlMGpY5QbmU4g LuAtPORzAWZpE5ZkxUDy NFlhB008YXdsZfG1HPFm ywYdE5OgNYSeiPlc FuS9f0A1Hl6kKi2yYP7g WMN5SA22AY45jVKmg8M6 eKT6W7PuRHIjmnorjzgu gNQ7CFXmPOCabO71 zPLrQDjbVq0rx9Y9r269 AMEgVUZscD86Bz6xiWoy LQVwpATYiA1jqgqpy3ig cjogIzAwMDAwMDt0 RZb9BVJrlKlmRxKqLJF3 RqZ7SUE4iJNlsX6arXma rpxuhK2rTob+ODcgWWVh hcO7H6FuEbg0KAJl hHsqTV3lhDPoITujXp6b rPcolOzzLZ7tUYVxyubx NLKzxI0cWLDnpFDqhTkk RI8qYLRxvjalj773 LfVfDRT1FGTkzVVaX8Fe gR5dTqHnJLEhRTShO8Sw wFSbPUgoA030MKgoByX7 SUPqjgCdN6BsAZWb zFbcAnM5m4T4Iz5IXX2r iYJ0C7QuTsd6FDSvkFeg JM7sfFMfDTmeZv3atUez eDyeFW4hUWHtnifd DYAzwY2fARMuhHLucOkt ZY4pRTZuqmjzs141TpKn TPN5PKUuoIOtI9QunK7b OyYkCTIfPHNyP3Jz dSTmIAmaB684SUgyAcZ2 SGZunqDnC5XbORZmjZbp ScA6l5I7Fu4RyUHzJTAd YI90BS10TN80J0Pz PjwvdGFibGU+PHRhYmxl IHdpZHRoPScxMDAlJyBz aUzuNX9lVj5sCSDpLVKf kEjgqKRgRmDni9ay IBIjRFggTE3kyAegY2Qp cCD2ADYhl5w7Bj47Y25z J1PmiBR+EEUasUE3fYG2 cZ9kTlGcKrM5WLgc L744CzBxfNHySrvrm5tj m0mypZg7FvQcMIVlsdJc fAmxVGC0a0OhMq40U16c IHdpZHRoPSIyMCUi HIUfqCqhyg6zhB6rOc0+ WKBnoJF1sPY6oE8yGuJt CtC6PFzvU895SdBoiXFi SxzlX84nL8MfeOM+ RVVlWxv0VFPgaQypFG3n gKTqDBxoXx5yVQF8OzDf UvKjPNueT1IdSSMurpeh fvanxTL2KEZiQTCj oB06Kh7rgXpuFs4gYDFr YTU5IZGgdOMyP3TwgR1f VePmVKEbQKCdY2WfgSFc CTgrB435MHbxBtJ1 ICVavyNoX2KnKDPqySlg JcR6m3R0Rb0MsKhrnGHx JG9mIkZfPRr5B0DyNwi6 BHKzcTkkJC3fbTNa LIiyGo0maGbacSunMD5u WJCmmgfwq945KoHxu1cx CXDipCSbJFmyDBY8M89n p9Y1FVVaLMUaCWG4 kEK4hJ3vfRfcivwppKOn dDsgdmVydGljYWwtYWxp C940WKXsdXfbJjWKPaq7 G6MxAdy5KANkjBfz QU1ewKJxSMgmNu7jkVrv gVxhMS7dUIDlqgmym765 KqDjn7btMPNqwKXpYEtg CXH5V75vv9L6GAXy NNOhTYF8kSY3iF1sjYcw bjogbGVmdDsgdmVydGlj IKrcMFnuW502KNGptDwb Ty7XRdj8U8ZpAzy5 DYUpdUaiKT9dpEOyYHxa Ne2dlRkzgXndCK1rTXCv lfbcj384XgMqp4eiIARo sSYzEMfoWZH4U02s i0Z2UNFtRYOtSZE0mFS7 uJ5vnPndpdreoIRymMhp pmYyjXuyIAxqGAirN459 IHRvcDsnPlBheWVy OjwvdGQ+NY69pg37P3Hl OxozJee0YDBbSOM7sKP2 eN7gLQPvYDraj5R2uCO4 K3CroxUxxq9tj7ns YXBz (more content not included)... Normal [facility] Coding Summary.on 09-17-2021 Coding Summary. CD:[id number] Gh0bWw+PGhlYWQ+PE1FV QTwB02duSDsxK4TN5kVW P4TGBGYFWTWFP1FXS6px KK8XXjkC7LjfzXa VwqrhAAvXR20BCu8IHY9 lLplRBfkfQ1gqNQwD6w9 ZuXaLS99qA11NBbrPPYd EwD8HuEhbowcjEVw V2ntVnGxfZGyBfe+PHRh YmxlIHdpZHRoPScxMDAl QdKipCqjOD0nNk1jJCWv LWNvbGxhcHNlOiBj h4bdSJXyJEepGT7omTiu C0SukLK1ZJAxj0k4Qm58 dHI+LSAuKND3uLjqDXiq h766WoOcw7rzQFP2 vXRkUDuzZLD2S75ee2K9 PYAcXZZnAPW4mSC2zJ4b yXitdxyjU7NqtPHtQsE7 XAT8sJEtuU1woMio mxfgoA1gMkk+A55EBV4Z LUMCCR0FTqh9G6DdJvmd dHI+IA19BXJlOY90vLUt nZToq1gvcTd1SxHg SKJfCTE0bDccLXhmx2Rk NAXdQ12wjQVvd6V7NPIt pSmigSMfKpEqjPE5iY0u GSyxhtfgu4efaizy Jxcla4pgkh62sV51O93e HYpoNBWiHGO3JAXcJASl nMljlw1lrK3sVx0+IDxj l7zdc3yrwSf4VrKo TZWcliUeqQnlCNK3d2Sd Iv87C3FrcZlkz4TiRae8 qs65rYDic9Z1kFJ3ZYxm HWRhuU3aZEmcGtK6 WVPaWtOynB87hQKaQHie Yu1qkYmcjHvfMO8aFMDf tmojNBQylH3eBETvoTHb bOpeTK5nDYUsbvzc s081SzMrRVT8YHXjpSBz P8UobR2kNgCkQDMvDPRc S9WraFCeLFyuA809VMxg UaT2DWHcljRbV5Fk LDSlbFkjLuD9r4H6Oq6T h9DmsbpeCVX2UJhhLOOx JxQ2AoJeZuS3W7FdNsz0 AGXrvLtwHW4cK3Zh WIGwptgktcyzdHS3NXLm GVFuuI14lSGeQFseJi3n c4D3y295JKUuAQQzuN02 Ot3rzMlwGWJpfWTP uV0wvchrr9vxyegsXfZm ERAvIXw9NFh0DYDygXbn BdTbXXP5KqA1JBD4eRXm hX1vfLsqaanwkB3q Oyc+M61itO2zBEQ9PVB3 yrusBXAobyAbXG01JK43 U2SaEiozxZYvuZE+PGRp jiOpxBbyKL7fBeSl g7zgg9GlZEbdP0XtUSNe RIniVws0IRVoHXI1rOF2 xO4yRVNrFQqkt9S9qEA1 U9UorsAqvl2ml5uk RNNlVWtbG09wjFMnq8B1 XFKisKN2WOEmyGhxThCh xO96Fjs+EZNjxCycy5Jx Mgvoi1oxv6wrxEc7 IjMwJSIgdmFsaWduPSJ0 e2NsIl33I21iOTolAOTd RDYsAVXpRTSdjFwnjv0n aR3wUi8+PGNvbCB3 nCF7yN0aNQQfSkS4XQnm V752HuKxoMUmVdgpb9fo w7nepKx1YzNcNZKvgjXw iInsJRK5z3ArYb74 I86sLBxnVCQgLKWlZIAt WUYwkUsrtb7tuG5wOs4+ CG8kg2ihba70rV70qBI+ SMRvIFM7hNklGNvx DHDezL4aYReiXkO9WLWc RgSplC73sWDpBEoqJy5s wToetMdmCV5wEHRsywsl d390OtYsj7wvCDIe sZSxOGahENL2N19hb4U7 NTUgCLOhJMZ4qRO9vL5d bGlnbjogbGVmdDsgdmVy aMabSHdxFKdtC493 IHRvcDsnPlBhdGllbnQg DeIjLYa2F9QoEip5VUIl eMbsJL6nlOWxTArtNe0d fXxnzTvzNA8cNOQp hmgfw924VwZxq3ryUWFn nZGwKJugUQT6R18rd5K4 VIJiCWDtJJP3rZB9jN3d bGlnbjogbGVmdDsg vzNfiLpaEOxtXLfhA596 IHRvcDsnPkJpcnRoIERh mSW0VR40UD79jCXdr2K6 nJX3P8AqZJJuyksa cmcbrYY7RJKgNXFgnW61 Gf7epXbkSu9jDENkIHP2 FMIodHYlV0ErtG5lKnPs PCZzKMLcR2MbsQUs AKucI455WNmuGoG2ULBm hmCeB1UqOEEncDjeXhP7 l0Y2Um3CJ8D5DR53XV31 rGNrc8H3vNH8I7Jy SGEvdzkqqygiqVT4MFFw CQMziB72Xw8cbFwjDj0e XTSuXVG4ITKijPVnB6Ua vK8fXuMmYKMyDWCl G2XefTQjVRpiE036JDbd CwA1RNRymxFuZ0CtZBOm rVisGnC3i0X1Uc7ENIq5 VL76ZK89lDGux7O8 qSR3M4TiYAFmspwsjhqw bZM5GEMoRDVhwX15Ox6z zVmkSb3eRLUpKMJ1FNHh tRGcD8SkhJ9dPtKr IAEkMPIaN6KseXZsMUit X878GYmoLxN3AQXsbjEp W1BmDTFmuDmrLhQ8s7N2 Xh4DXCGgHA46LQQ8 fOY5NA33UE57T3UoVcoo dGFibGU+PHRhYmxlIHdp ZHRoPScxMDAlJyBzdHls RJ2nTj4rZWXrFXCr sVetlGJrPzVvx2jaRDOo WYbmBE3pcQxrC1AuzPJ0 CMHcg3y2Up71I67lJ4Ke dXA+ESNzkYQ2mPM2 uZ6eAtPeFbO4ALozI574 VuYqrGUaJtnsb3zqy0fg pLz5YdC3XTRdqsLmqMzv CZQ7i6UlYm59L69f IHdpZHRoPSIxNSUiIHZh qEbvyc9usW3qLo1+PGNv xIP5iCJ6fG9gEsFtYsV2 WTgdU659VuHxpKHi Wotyu3bcv2zjjKi7RtRa DWFuquYjmGnjSCP6g3Jm Ob14X7EjgJqor1QdNmg2 as10oTWqz9R6pOM1 F6VfRHZsnzcdoJJdnYcu HF6jFDKaydmpFYGuhY0g ETGrQ6u3ZhGiVjB8SWyn I2RwqgN5VYSojLJt BWgwMBZ7D08dt5X2FWSw XNKjJTZ2rFE6cA8gkDgp bjogbGVmdDsgdmVydGlj HCgaNLqvC213RLJq tPnsJEOneK7wTHWxkJTb pYlpUL8eSRUxfjiaBmGA JUGxXVGRZIPHY4sBMEW8 D8EfFsz0XWIsiHyq BB2btWTuGGhkWi5epIlh yRhjHW2rHTOeopprZCBw gI8xOIAdgGNnuGuzNI1c BLRxoacgu050AjLf DDS9YBVmwKZpO1XnlK7g XeJgZVBkGWHeQ1MxvHIz YWevN945ORirPkI3TLLy aqFpR1NgBODueVxj AoD9j0C9Ii1gVd7jWE4u YGJ4MQ85ID04xCTky6A8 aIO8R4ZwDRGwlwozymlw vSW5IHNnKNDmwF40 eIObORsoCt8gb7R0x834 UHLmAFCnpZ58Rk6nfUed TNBhpKJCzA2ugxdan2cv cjogIzAwMDAwMDt0 WPg5LUKxaHebUfRnKAR7 LjJ3CVA5gMXqyU3rwAik mjydsY8gGfa+ODcgWWVh mcI2L3DvNau3QZVs wDzzFQ9mdGTmUKegPf7h aVhbsFivOM6fTTIscepb OXTgaI9gMCUkoWNnqRaq NA1rRGDhplwxm898 OyPlENW6ZHQtzWRfE7Se yB9sAoKlIHZfALOyA1Sz gKImDVvcI019CDqsMsJ8 GWPmioRsH6FdTXUa cCqkKmJ2c1R5Uw4TEB9g zEK7S3KjCbm4DMCpzRyn GL9stYOeAErtEb1teFoa qZceJR4tMXOhlptc LQWolI3fHUFkkLVftXub KC0uJKHmmhtph377JbQn AHG2JFBseHVyZ5EsuC1a AzKkCNRzCJEsX7Qw kSUsYOspM629CVdaZoP9 VHHjkkSpR1IlNHLdrIqv VwJ1x6M3Br7RrQEmHTAh LF71FJ82WC58G8Rx PjwvdGFibGU+PHRhYmxl IHdpZHRoPScxMDAlJyBz zUdbKO1kSj5rOUJbUXQe jFceiZIvFrApt1nz TEJfWNgiHC1vaNzlK1Ka tXU7FLDnr0k7Gy66R19f M6IcjQI+HVSxoZU5zVN4 fY4mEaGkFhJ4TLcb H821NjEkfRRhEddhc2lg w5esyWe2WtQhBQQtlzWi jHnyAPB0q6GkLa85Q57x IHdpZHRoPSIyMCUi ZSPxkIuqir6qeQ5vFr7+ YYFqjTO8xWC2qT1bPpJu FuB9DLuaT716ZzBzoWNw LdtoR29rD6QkoPD+ ZDZyYyy6BDMmvJopXC4l fNNoWIkqAe9sNSS0GpRn WdUmOZjiQ1FfWTKlnauy lvlsyCM2CHPtLRZb tZ46Ea0eoUkiFc6aIYMw QSK9OXXjjJJdU2ObuS1z VoYrLTTkSPVlD1GycEWk ZJcfO903VZkqLaU3 NYHdcbCqZ3BjKODmtCqb GxU4w7H6Si1YhEdapZDx HS2qPpIvGRp9Z2UyZdt8 GUJthRjkSR8zhFNu EJwmPd8cbIwzdSvzCS1r SFCriaelm641ZqBmp7el WVNffYNeEJpsLPF4M55e q5C8VKTfQNPxTDS6 jYG6oC1coUdynyjlqJYb dDsgdmVydGljYWwtYWxp L872BFFioElhKmNTNsc7 H4VrRgz1CMHpeApo OI4okOBuLZwiOf6vwBnx tMxxLN7bZCHfeuunn939 QdEzq7zfRZWlqKWwJHyl SRC2F26ym6H8JNCo UTBmUUS7aZK5iC8inMri bjogbGVmdDsgdmVydGlj MQebGBleN700ASIejIaq Fu2LBkl2K2BwSwt2 GIJycSgaOI2gwSMuNObl Fp9ooQziyMrcXL5mEIQe tgxql187KbTmp4oyDMVn cPSbEYpxNUM2X27l k9M9TOGlBGOyTNW5aLS1 kW8doPyiyarhgFFsnEkq zdLvkYoiZHgnPAycL974 IHRvcDsnPlBheWVy OjwvdGQ+FS89bt77X9Aw FaqwOyr2HUUbXUO7lBA0 oS0mFAGrMTgev7P1nQY4 Y8PtjyPmka7vi7yo YXBz (more content not included)... Normal [facility] Consent for Treatmenton 09-04 Consent for Treatment [id number] 20 [id number] #1.00CD:127 Normal [facility] Heart and Vascular Office/Cl inic Noteon 09-13-2021 Heart and Vascular Office/Clinic Note Chief Complaint 6 month follow up HTN/CVA History of Present Illness Toribio Betts is an 86 year old female with history of CAD post PCI, normal LVSF, PAF on NOAC, tachy-nico issues, HFpEF, mitral valve insufficiency, HTN, HPL, and recent CVA. Here today for six month follow up. Had followed with Dr Montez, but wanted to transfer care to Dr Perales. She denies any real cardiac complaints beyond profound fatigue, declined functional capacity since last visit. ECG in office shows sinus rhythm, no new ischemic changes. Review of Systems ROS - Clinical Support Cardiopulmonary Symptoms: None General Symptoms: None Constitutional: no fever, no chills, no weakness, + fatigue Respiratory: no shortness of breath, no cough, no orthopnea, no wheezing Cardiovascular: no chest pain, no palpitations, no edema Neuro:no dizziness no light headed no syncope Additional ROS info: Except as noted in the above Review of Systems and in the History of Present Illness all other systems have been reviewed and are negative or noncontributory. Physical Exam Vitals & Measurements HR: 54(Peripheral) RR: 16 BP: 169/72 SpO2: 97% HT: 155 cm HT: 155.0 cm WT: 61.2 kg WT: 61.2 kg BMI: 25.47 General: alert, no acute distress Neck: Supple, noJVD nocarotid bruit Cardiovascular: irregular rate and rhythm, no murmur normal peripheral perfusion Respiratory: Lungs CTA, respirations non labored Extremities:no edema Neurological: oriented x 4, LOC appropriate for age, sensation equal & normal bilaterally, speech normal Skin: Warm, dry, intact- no rash or concerning lesions Procedure [facility] 03/11/19 IMPRESSION: 1. Physiologically significant mid-left anterior descending stenosis status post successful PCI using a drug-eluting stent. 2. Nonphysiologically significant ostial and proximal first diagonal stenosis. 3. Mild disease of the mid-right coronary artery and of the proximal obtuse marginal branch. RECOMMENDATIONS: 1. Aggressive medical therapy. 2. Cardiac rehabilitation post-hospital discharge. 3. EP consultation if patient continues to have frequent ventricular arrhythmia despite PCI of the LAD. [1] Assessment/Plan 1. Fatigue (R53.83: Other fatigue) 2. CAD (coronary artery disease) (I25.10: Atherosclerotic heart disease of koi coronary artery without angina pectoris) 3. Paroxysmal A-fib (I48.0: Paroxysmal atrial fibrillation) 4. Pulmonary hypertension (I27.20: Pulmonary hypertension, unspecified) 5. HTN (hypertension) (I10: Essential (primary) hypertension) 6. HLD (hyperlipidemia) (E78.5: Hyperlipidemia, unspecified) 86 year old female with CAD, PAF on NOAC, HTN, HPL. She is here with increased fatigue, history of tachy/nico/PAF- check Holter monitor, update echocardiogram. She would like to establish with Dr Perales and will follow up with MD to review results of testing. Follow-up No qualifying data available Problem List/Past Medical History Ongoing Bradycardia CAD (coronary artery disease) Chronic constipation Chronic diastolic heart failure Daytime hypersomnolence Fall at home Fatigue Gastritis History of CVA in adulthood History of TIAs HLD (hyperlipidemia) HTN (hypertension) Hypokalemia Insomnia Mild recurrent major depression Mitral regurgitation Non-sustained ventricular tachycardia Osteopenia Paroxysmal A-fib Pulmonary hypertension Type 2 diabetes mellitus Ventricular bigeminy Historical Hypercholesteremia Procedure/Surgical History Cardiac catheterization (10/2018), Breast biopsy sample. Medications amLODIPine 2.5 mg Tab, 2.5 mg= 1 tab(s), Oral, Daily, 1 refills atorvastatin 40 mg Tab, 40 mg= 1 tab(s), Oral, Bedtime, 1 refills calcium-vitamin D 600 mg-400 intl units oral tablet, 1 tab(s), Oral, Daily Daily Multi, 1 tab(s), Oral, Daily Eliquis 2.5 mg oral tablet, 2.5 mg= 1 tab(s), Oral, BID, 1 refills isosorbide dinitrate 30 mg oral tablet, 30 mg= 1 tab(s), Oral, BID Lasix 20 mg Tab, 20 mg= 1 tab(s), Oral, Daily, 1 refills magnesium oxide 250 mg oral tablet, 250 mg= 1 tab(s), Oral, BID, 3 refills omeprazole 20 mg Cap-DR, 20 mg= 1 cap(s), Oral, Daily, 1 refills Plavix 75 mg Tab, 75 mg= 1 tab(s), Oral, Daily, 3 refills PreserVision, Oral, Daily Zoloft 25 mg Tab, 25 mg= 1 tab(s), Oral, Daily, 3 refills Allergies No Known Allergies Social History Alcohol - Denies Alcohol Use, 06/11/2018 Current, 06/14/2018 Current, Beer, 3-5 times per week, 05/19/2016 Substance Abuse - Denies Substance Abuse, 03/30/2015 Tobacco - Denies Tobacco Use, 02/16/2019 Never (less than 100 in lifetime) Tobacco Use:. Never Smokeless Tobacco Use:., 02/09/2021 Family History Crohn's disease: Mother. Diabetes mellitus type 2: Father. Immunizations Vaccine Date Status Comments influenza virus vaccine, inactivated 06/27/2021 Given SARS-CoV-2 (COVID-19) mRNA-1273 vaccine 09/12/2020 Recorded [facility] SARS-CoV-2 (COVID-19) mRNA-1273 vaccine 08/14/2020 R (more content not included)... [facility] Comment on above: Result Comment: Elec tronically Signed By: Angelina SMILEY CNP\.soledad\Date and Time Signed: 09/13/21 15:15 EST Pre-Certification Formon Pre-Certification Form [id number] 3#1.00CD:[address] [facility] Progress Note-Nurseon 2021 Progress Note-Nurse [id number] 9#1.00CD:[address] [facility] Consent for Flu Vaccineon Consent for Flu Vaccine [id number] #1.00CD:[address] [facility] Family Medicine Office/Clini c Noteon 06-27-2021 Family Medicine Office/Clinic Note Chief Complaint Patient here for 4 month f/u on htn, chol-- had labs done. Wants flu shot today. History of Present Illness Here for med follow up Patient has high blood pressure. Patient denies any CP or SOB. No problem with headaches. Is taking medications as prescribed and is tolerating well. No med side effects. She has high chol and is on a statin. Review of Systems Constitutional: no fever, chills or sweats Respiratory: no shortness of breath, no cough, Cardiovascular: no chest pain, no palpitations, no edema Physical Exam Vitals & Measurements T: 36.8 ?C(Oral) HR: 80(Peripheral) BP: 124/68 SpO2: 98% HT: 156.0 cm HT: 156 cm WT: 60.8 kg WT: 60.8 kg BMI: 24.98 General: Well developed, well nourished, in no acute distress Eyes: Pupils equal, round, and reactive to light. Conjunctivae and sclerae normal, and extraocular movements intact Ears: TM clear, grossly normal hearing Nose: No deformity, discharge, inflammation, or lesions Mouth: MMM. Oropharynx and posterior pharynx without lesions or exudates. Tongue WNL Neck: Neck supple. No lymphadenopathy. Trachea midline. No thyroid, masses, tenderness, or enlargement noted. No bruit. Lungs: Normal respiratory effort and clear to auscultation Cardio: irregular rhythm, normal rate Abdomen: Soft, non-distended, non-tender Musculoskeletal: No joint swelling or synovitis noted ambulates with cane. Extremity: No clubbing, cyanosis or edema. Neurologic: Grossly normal Skin: No rashes, ulcerations, or suspicious lesions Mental Status: Alert and oriented x3. Normal mood and affect Assessment/Plan 1. HTN (hypertension) (I10: Essential (primary) hypertension) BP controlled stay on amlodipine Ordered: CBC w/ Auto Diff Comprehensive Metabolic Panel 2. HLD (hyperlipidemia) (E78.5: Hyperlipidemia, unspecified) lab is good stay on atorvastatin Ordered: Comprehensive Metabolic Panel Lipid Panel 3. CAD (coronary artery disease) (I25.10: Atherosclerotic heart disease of koi coronary artery without angina pectoris) stay on Plavix 4. History of CVA in adulthood (Z86.73: Personal history of transient ischemic attack (TIA), and cerebral infarction without residual deficits) no change 5. Mild recurrent major depression (F33.0: Major depressive disorder, recurrent, mild) doing well stay on sertraline 6. Paroxysmal A-fib (I48.0: Paroxysmal atrial fibrillation) stay on Eliquis 7. Type 2 diabetes mellitus (E11.9: Type 2 diabetes mellitus without complications) A1c is 7.1 keep on diet Ordered: HgbA1c 8. BMI 24.0-24.9, adult (Z68.24: Body mass index [BMI] 24.0-24.9, adult) Orders: isosorbide mononitrate, 60 mg = 1 tab(s), Oral, Daily, # 90 tab(s), Refills(s) 3, Pharmacy: [facility], 156, cm, 02/09/21 11:57:00 EDT, Height/Length Dosing, 60.1, kg, 02/09/21 11:57:00 EDT, Weight Dosing Follow-up No qualifying data available Problem List/Past Medical History Ongoing Bradycardia CAD (coronary artery disease) Chronic constipation Chronic diastolic heart failure Daytime hypersomnolence Fall at home Fatigue Gastritis History of CVA in adulthood History of TIAs HLD (hyperlipidemia) HTN (hypertension) Hypokalemia Insomnia Mild recurrent major depression Mitral regurgitation Non-sustained ventricular tachycardia Osteopenia Paroxysmal A-fib Pulmonary hypertension Type 2 diabetes mellitus Ventricular bigeminy Historical Hypercholesteremia Procedure/Surgical History Cardiac catheterization (10/2018), Breast biopsy sample. Medications amLODIPine 2.5 mg Tab, 2.5 mg= 1 tab(s), Oral, Daily, 1 refills atorvastatin 40 mg Tab, 40 mg= 1 tab(s), Oral, Bedtime, 1 refills calcium-vitamin D 600 mg-400 intl units oral tablet, 1 tab(s), Oral, Daily Daily Multi, 1 tab(s), Oral, Daily Eliquis 2.5 mg oral tablet, 2.5 mg= 1 tab(s), Oral, BID, 1 refills isosorbide dinitrate 30 mg oral tablet, 30 mg= 1 tab(s), Oral, BID Lasix 20 mg Tab, 20 mg= 1 tab(s), Oral, Daily, 1 refills magnesium oxide 250 mg oral tablet, 250 mg= 1 tab(s), Oral, BID, 3 refills omeprazole 20 mg Cap-DR, 20 mg= 1 cap(s), Oral, Daily, 1 refills Plavix 75 mg Tab, 75 mg= 1 tab(s), Oral, Daily, 3 refills PreserVision, Oral, Daily Zoloft 25 mg Tab, 25 mg= 1 tab(s), Oral, Daily, 3 refills Allergies No Known Allergies Social History Alcohol - Denies Alcohol Use, 06/11/2018 Current, 06/14/2018 Current, Beer, 3-5 times per week, 05/19/2016 Substance Abuse - Denies Substance Abuse, 03/30/2015 Tobacco - Denies Tobacco Use, 02/16/2019 Never (less than 100 in lifetime) Tobacco Use:. Never Smokeless Tobacco Use:., 02/09/2021 Family History Crohn's disease: Mother. Diabetes mellitus type 2: Father. Immunizations Vaccine Date Status Comments SARS-CoV-2 (COVID-19) mRNA-1273 vaccine 09/12/2020 Recorded HCPH SARS-CoV-2 (COVID-19) mRNA-1273 vaccine 08/14/2020 Recorded HCP influenza virus vaccine, i (more content not included)... Normal [facility] Comment on above: Result Comment: Elec tronically Signed By: RYAN MAYERS, Janna Bhagat\.br\Date and Time Signed: 06/27/21 16:03 EST Coding Summary.on 06-21-2021 Coding Summary. [id number] Gh0bWw+PGhlYWQ+PE1FV ATyL33exJVxyW0LG5qVF S2VSTVWZJLRPV9MJB7aj JO7QEbwV1YeirPw VjakmRAeYX46EDm1EJW6 hFkiBPgprR0ytRZhW9n8 CsPpQO98nD35BYulVANk DcW6DpAekqdtsKKu H8xzRvVbqTGyRhc+PHRh YmxlIHdpZHRoPScxMDAl MyDiiQngCX6rMt5hMCXc LWNvbGxhcHNlOiBj z7fbMNOsULgqEK2ldJvs Z6GgtPY0ANThb4d7Yi64 dHI+STQcQGG5aBupJFfn x881UsXnb0eaDUF3 qAJdODocQOZ9E76li6A3 UXSkLMYoWOQ8aEA3vV9d dFrhqkozX1LknAYlSpD6 YHO0qXNusM8dzIjp nwigoK5qOvb+A28TRO0B HSCZDL7AUsu9G8DnFjtz dHI+NH36OCDcVX75wMQv pOBez2nbhJo0ZsXo IGAiUAE4iXlzERfbc3Gl LOSgJ93qtFBbn5W2QMWx eGpvyUJtQmMtuDA3cC5l ZJbchzylb3jwnyht Mulps0deio82oB26F53c NZlkVKGpOUQ4BORwNCYd eHiwbi3cpG7uFw0+IDxj i9vrb4gxfVh1HcVj NFZxhcXpjJavXIB9l6Oe Sf03C3XajVtkb3TzUbt3 ya53yZWuy4C7eHE6LXnf RDMusI9vHQgiApN2 XBAwJpTkrF57kXFzRZhr Rh8ntZstfMuyLD4sOQVo doooTVHptQ0xKPZaaSYj xLlzAX8bXEFvqawf e178IsPtNPF0JPEdtGGn E1LeoX8cCtAnDAXpIODr A9OyrTIuYLxlD086BSor RwA3YVZhyzZvA4Rq DAQqsBlcVzK2c1N7Hi2T k5NfchxaBEY0ELunKETz ZyP2LdWgUkP0U8YwMyx2 CWXwdYefYE1tA5Df IUSlqftyuryumGF9QHTc IONtdR49lCIdJBrgCr7k h4V6t279JMGsODNtyD82 Kj2npQjfNYCueHAB xL1okcdbt4nopjohAtOu XWXzYZc5OEb8KCFmiSjc EjZgIMG1VlA0DGF6uPDa fA4fbGhqxadiwQ9g Oyc+A71ddS5fLXI5MHK0 drtcPBUdspGiHS29HH66 C1OjMcoflSRmhFM+PGRp wmRyaYosWD3xKaMe g1dju8YkPLadQ4JzQQJu LLgnVcs1NPDvCNK4dPN9 yN1oLEZjPOglc7O5cNF3 Q7ApenBxmh1vg0rz PHGwHBleH91zfYFco2N3 BNHkxEU8CKCywSivNcAs vF61Ysc+XQBjqUtjb7Bv Ffeng1fex1gzcEa9 IjMwJSIgdmFsaWduPSJ0 y2MdFe73I11yPPmbHMSa KUSzHOPrUSYtxIjmvk8o dO8tNj9+PGNvbCB3 pDV7gY2wNNHaFwP5ALkc K564FwQrrECnIxjrh6on g5mswYd2WbSwSRPpjrKh bVizMEI1u3XkEu80 Y27tZDilQFCsKSNlSXOw IIWfaWuvyb8zuQ6rWg7+ DG9de9lnla53gY32lEC+ URBkUFK6jFrfEQhp PLYkeQ8hLLowOnO8EQQa KbIlkK26pQUtDHtdLp7l zAepuCvqHY5bQFSablug o105CtLzt3tdRULu mIAcHUrkZTN2P84ff9B2 AEYbGXNxJLU7aYB9yP6g bGlnbjogbGVmdDsgdmVy kYmvLSwtPDpzB096 IHRvcDsnPlBhdGllbnQg QkZjKGj9W0UiEvo2GFNl oHrtKU9rxQCiELxzFc0h cGdivKnuKY4tOEKs otikd302ZiTks0ebWNFy sPVgRJtjCNZ0J64jy6K1 WRJsCXCpEVS3pBL2yX2f bGlnbjogbGVmdDsg jfHrsGszMZhxFBlrA738 IHRvcDsnPkJpcnRoIERh eNV3LX33YR99hLNoh2T6 uBK0J5GmDJIsbnkk nfqbyON8ZYOwWNLwvU87 Vd7aiOilIy8tFMWdKOP6 JQKtkNQmX8OwhW4bCqZj HRHyZUVkE4XeyAWk MMdxQ433IRwkOgY2NCYh urMfL5PjAXIrkUphXdX0 j1N3Tx0IL2I0PO30TV58 uMBle1L6mLB0A9Nf KVWtvcrrrhnkxHZ8WDCs DLPhbG91Aq7ulVruCo2p XEDaPSZ6XQLkoYTqH5Tl cJ0xVhThFJRwTXQa G8JibITjCMsrS674NXcx AkW8WVOjygNgF6YvXJIz dZjsMdN8b2Q2Lw2NOBk0 YG43DM34dWZqi3K5 gEC9V7BrPYOgyvobkdnx iUL5EJKpXIYgfQ05Ah2j bNdtNv6jDNZbVKJ8FMHk iSGhZ2QkjU0iKfXy TVNwIJYvN9KkdLCpREnc W599OAjvGzN8PJZjfhSq V2AsLMUwiIaiLeW5r0Q0 Ql9KVMSbUY85YEW5 rCA0NG60AT65A9EqGecu dGFibGU+PHRhYmxlIHdp ZHRoPScxMDAlJyBzdHls XA6oSb0aPCHtGELn rCcfkJQyHmRvq2luDURv CIzgKN6mwIrpP9BmzFP2 YMKpj8c2Zy89Y28bE7Sa dXA+QTNctDF3wBX9 lB7rVoFvDsT2IPudX739 GbNxzVVjDyucn4slv4qy hWu7OdP7ZANiyjKldRrd FXX9l4BaNi49D56q IHdpZHRoPSIxNSUiIHZh aYegne6hlV4vQm1+PGNv sKW5wJL5lZ6qQpGqXnU6 NXgsD238PfYhnYEq Ooneq1ccv1rukUf8BvFn SXBkjkRczBsuLYV5x8Cx Me86G8PskCxrq2FcKui8 ab71oDOio2O4fRR8 P4XeGDJuvzsloFUrzGug ZV4lBMLixcjnCXTeyG2g CBQlT3c2EnYgBsQ5MGsu H0OliiG5UJPnuCCl TQzgMUF4R13ay6Y4DZGg FYFrKKU4uVF0dQ9ksDur bjogbGVmdDsgdmVydGlj MZndTPhfH101QIQl mIibVKIqdM9tRXSthGCs aUatWQ8pALQhzuxvGwFQ AUHiAOGSNZNRU5kOFIS2 W0NxBws5YXWoxPfj PC0ccBOfXZzqJa1ifXct qSzcZU8cFDMdywwqUTNv uH0zSSRzeFUrfEaeIX7s FIEreznyc623KkYw WKJ5DNTvtZZqZ6CloO4z LwLcFUXtOTOfZ6LjvMWr UUodY489GNxaDbW4WVEj igGhR1KdMXDqnKgd TgL0t4T9Tf5lHf3lMG3u UXF9BW74SQ80xJNjw5T6 jOU5S6RtXWRvmjvtzgai uBP1BTTqWSVyvS31 uFBkUScpZe1rj5Z6r678 VGIpDLAsnX97Gw8zrGnz FLUurBQQiF6zlqxmd5zy cjogIzAwMDAwMDt0 GTs2QDWppMuhDiHrDKX5 LiD6PBE5gGEtcX1mhBam whecnT8mJyy+ODYgWWVh zjJ5X9UhYqk1LBOx gEaiGE2oiWGbHLulNs2e tCnvuZcpND1jFLZjkqtf TBLwzP3nYVKfpOJacPyj XA5xSXGkcftcz602 UvJnHDO6MKHomYHlL1Ym dA7zKhKrMFDyJYAkU6Oj bYFzJHxpT269SNfsKwE1 KXQhzeZyZ6BiFDJy lFtbSsR0z3T1Bw5DTX8i pDT4K0GyCoe2BOLzuXev CX8cnPLcGPrtNg4bjDpp aBzpSK5uFXMprvay KMVmpH8hCPUlcJKdkBhc TB9uTGJntvlbi861YnSg VWV9ZWKzbEIdK1FnwS6v FrUnBIDfJTNrU4Uo zMWcGGjeU426LGlpCdH6 IJSsyzMjE7UaXKQkkTlc KwA0j1X6Da5MfSRiKQAb XH08SF60MO30F9Vc PjwvdGFibGU+PHRhYmxl IHdpZHRoPScxMDAlJyBz jOwtSR1pKh7pHFDyRAFl tToqzVVkGeCtg3os WXBdCHgcQZ1toBfrY4Pd iDQ4YVEde4p3Od39C10z S5ReiFE+JPSggMP2mNA8 eZ3mElJzJlR0SEoz H502OuWcfPIyDevby5uj h2ktlOi1QgSgCQTqnhEw dCnuOCK3b9QgFv79O79e IHdpZHRoPSIyMCUi TMIfdVsdqy4gdN1cPy2+ UNDtmWS3mOB8sX8vYxAe NhZ8ZCneD318HdRgtWQz RyaxE52lS4MyhVV+ VATjMgw6HCOdkXrsTU2j zWEvBNkuIe3wCMW3WuAu KmOePWgxE3BdYGHebyss gcxwgWU9YKUqIQYz mL07Sq2fbRmwNz9qYXIo UGX4CZFuzNYwO5QxtP4l FbJmPGFqEGZmE6FagXZd JLtvD128FTxmRdJ0 GTRhehBwM3EdUFRglZzk CxI1f9K2My3KsCeetHZb PW9iRtHgSWr9V3LpBag2 UTTqmZdrFO2nuCFg NXmfGd2arIisgFbzKT7u MIWntaheq620VaVxh3wz UMOluQRcXHrvSDX4O92m c3W1JAUzHOXwDFP4 bTE4vX0naRtwputqeHLg dDsgdmVydGljYWwtYWxp U313YHPoqYiiDcTFWwd5 E5SrPxu5HUGwsGlb WP3dvJBjMAiwQq4jlOhy sUlaTA9rRVQiezmwj902 SrAdm2urCQXbsEBhNVwd KYQ7B82ii4V1BYWv GQGmDGI2fAG3oJ4hnSfo bjogbGVmdDsgdmVydGlj XPhbABksQ044PFYdtIyu Dh5SQpj8Q9NwNpu1 JLLrbHtzUB2jzESfLNny Xw9hkBmudBfbGF8iDBVp mfjur330WhNll8lvHRDk tRBiGSqwHIH1X68i i3J2QRZfKMVoETH0jAZ8 kI8ecWsajilksDBtbRpx inVaiMxcUAkbNJnrX086 IHRvcDsnPlBheWVy OjwvdGQ+AA18wn40U8Il ZdslKcm5BSDwMYP7tKS2 rE0wZQCnLDyol7D2mQP4 I5VhksAlyl9vx3de YXBz (more content not included)... Normal [facility] Auth for Release of Medical Recordson 06-05-2021 Auth for Release of Medical Records [id number] 3#[email or web address]:127 Normal [facility] Auto Diffon 06-01-2021 Basophils/100 WBC (Bld) 0.9 % Normal 0.0-2.0 [facility] Comment on above: Order Comment: Order Added by Discern Expert. Performed By: #### 2 356402, [id number], 7534620, 6589345, 6615189, 0790344, 4392861 ####[address] [address] Basophils/Leukocytes Auto (Bld) [Pure # fraction] 0.0 E9/L Normal 0.0-0.2 [facility] Comment on above: Order Comment: Order Added by Discern Expert. Performed By: #### 2 732741, [id number], 2046359, 6427358, 3346254, 4543653, 1781379 ####[facility] [address] [place] [address] Eosinophils/100 WBC (Bld) 2.6 % Normal 0.0-8.0 [facility] Comment on above: Order Comment: Order Added by Discern Expert. Performed By: #### 2 503398, 613747681, 2853471, 8794842, 9264260, 0745473, 3660208 ####[address] [place] [address] Eosinophils/Leukocytes Auto (Bld) [Pure # fraction] 0.1 E9/L Normal 0.0-0.5 [facility] Comment on above: Order Comment: Order Added by Discern Expert. Performed By: #### 2 361822, [id number], 0416633, 4745986, 9668147, 3869669, 8302050 ####[address] [address] Lymphocytes/100 WBC (Bld) 37.9 % Normal 14.0-50.0 [facility] Comment on above: Order Comment: Order Added by Discern Expert. Performed By: #### 2 085124, 238992874, 2844801, 3103471, 7822715, 0751760, 5742392 ####[facility] [address] [place] [address] Lymphocytes/Leukocytes Auto (Bld) [Pure # fraction] 2.2 E9/L Normal 1.0-4.0 [facility] Comment on above: Order Comment: Order Added by Shelley Expert. Performed By: #### 2 928661, 376174361, 9987628, 6130902, 1889549, 9276177, 1286115 ####[address] [address] Monocytes/100 WBC (Bld) 8.8 % Normal 4.0-14.0 [facility] Comment on above: Order Comment: Order Added by Discern Expert. Performed By: #### 2 809386, 468775141, 3541193, 5952611, 2146700, 9373671, 6400843 ####[facility] [address] [place] [address] Monocytes/Leukocytes Auto (Bld) [Pure # fraction] 0.5 E9/L Normal 0.2-1.0 [facility] Comment on above: Order Comment: Order Added by Discern Expert. Performed By: #### 2 727466, [id number], 4936421, 4184962, 0062185, 2143831, 3896587 ####[address] [place] [address] Neutrophils/100 WBC (Bld) 49.8 % Normal 36.0-75.0 [facility] Comment on above: Order Comment: Order Added by Discern Expert. Performed By: #### 2 070658, 250006240, 7548377, 3754724, 7616199, 9218252, 1219362 ####[address] [address] Neutrophils/Leukocytes Auto (Bld) [Pure # fraction] 2.9 E9/L Normal 2.0-7.5 [facility] Comment on above: Order Comment: Order Added by Discern Expert. Performed By: #### 2 275052, 145437757, 6197289, 7261639, 6230478, 6171694, 9017892 ####[facility] [address] [place] [address] CBC w/ Auto Diffon Erythrocyte distribution width (RBC) [Ratio] 13.0 % Normal 10.9-14.2 [facility] Comment on above: Performed By: #### 2 352446, 968970816, 5233125, 5646407, 5696427, 4458223, 4417791 ####[address] [address] Hematocrit (Bld) [Volume fraction] 39.0 % Normal 34.0-46.0 [facility] Comment on above: Performed By: #### 2 063426, 456786140, 0640599, 8705797, 8789635, 3490616, 5038893 ####[facility] [address] [place] [address] Hemoglobin (Bld) [Mass/Vol] 12.9 g/dL Normal 12.0-16.0 [facility] Comment on above: Performed By: #### 2 650851, 513930172, 8999995, 7880105, 5017869, 2238578, 2120173 ####[facility] [address] [place] [address] MCH (RBC) [Entitic mass] 29.9 pg Normal 27.0-34.0 [facility] Comment on above: Performed By: #### 2 531212, 935856068, 7592101, 1451880, 9733785, 7660071, 4483027 ####[facility] [address] [place], [place] [address] MCHC (RBC) [Mass/Vol] 33.0 g/dL Normal 31.4-36.0 [facility] Comment on above: Performed By: #### 2 920162, 685697554, 0428165, 3995190, 5412241, 1160913, 6787648 ####[place] MCV (RBC) [Entitic vol] 90.5 fL Normal 80.0-100.0 [facility] Comment on above: Performed By: #### 2 607635, 919732489, 3417192, 2861280, 7494489, 4752454, 3584049 ####[address] [address] Platelet mean volume (Bld) [Entitic vol] 8.6 fL Normal 6.4-10.8 [facility] Comment on above: Performed By: #### 2 833390, 786247610, 8959172, 5389843, 3061246, 1702293, 3829931 ####[address] [place] [address] Platelets (Bld) [#/Vol] 206.0 E9/L Normal 150.0-500.0 [facility] Comment on above: Performed By: #### 2 122156, 863815957, 6271795, 9481905, 3373178, 1639721, 6022540 ####[address] [place] [address] RBC (Bld) [#/Vol] 4.3 E12/L Normal 4.3-5.9 [facility] Comment on above: Performed By: #### 2 544046, 961864708, 7624576, 4228963, 1380179, 5890548, 4963428 ####[address] [address] WBC corrected for nucl RBC Auto (Bld) [#/Vol] 5.8 E9/L Normal 4.0-11.0 [facility] Comment on above: Performed By: #### 2 091057, 167703630, 1627406, 1743112, 9028643, 3792768, 7181715 ####[address] [place] [address] CMPon 06-01-2021 Albumin [Mass/Vol] 4.0 g/dL Normal 3.3-5.0 [facility] Comment on above: Performed By: #### 2 122675, 086822978, 2499292, 0238833, 9833282, 2046746, 8208382 ####[address] [place] [address] Albumin/Globulin (S) [Mass conc ratio] 1.4 Normal 1.1-2.2 [facility] Comment on above: Performed By: #### 2 090377, 539817663, 6528425, 4528160, 8787544, 2364932, 1536935 ####[address] [place] [address] ALP [Catalytic activity/Vol] 64 Int._Unit/L Normal 21-98 [facility] Comment on above: Performed By: #### 2 882520, 583337001, 8771758, 2609036, 5299584, 2839718, 6951713 ####[facility] [address] [place] [address] ALT No additional P-5'-P [Catalytic activity/Vol] 27 Int._Unit/L Normal 6-46 [facility] Comment on above: Performed By: #### 2 507178, 826099898, 6768206, 1272778, 5942323, 5004199, 1406113 ####[facility] [address] [place] [address] Anion gap [Moles/Vol] 12 mmol/L Normal 6-16 [facility] Comment on above: Performed By: #### 2 851698, 574761634, 4270470, 9274137, 7050024, 0279984, 8552048 ####[facility] [address] [place] [address] AST [Catalytic activity/Vol] 25 Int._Unit/L Normal 5-43 [facility] Comment on above: Performed By: #### 2 957479, 546948239, 0757109, 7393414, 3363012, 3567508, 2134595 ####[facility] [address] [place] [address] Bilirubin [Mass/Vol] 1.0 mg/dL Normal 0.0-1.1 [facility] Comment on above: Performed By: #### 2 825944, 717181784, 6860991, 6490006, 9265680, 6587499, 4514206 ####[facility] [address] [place] [address] Calcium [Mass/Vol] 9.4 mg/dL Normal 8.9-11.1 [facility] Comment on above: Performed By: #### 2 932248, 064139019, 8717949, 4693115, 9085717, 5743435, 1222226 ####[facility] [address] [place] [address] Chloride [Moles/Vol] 101 mmol/L Normal 101-111 [facility] Comment on above: Performed By: #### 2 829562, 704299066, 2491268, 1674869, 2273052, 1525719, 0363578 ####[facility] [address] [place] [address] CO2 [Moles/Vol] 30 mmol/L Normal 21-31 [facility] Comment on above: Performed By: #### 2 672213, 679216429, 8343156, 2451685, 3721637, 0422866, 3718625 ####[facility] [address] [place] [address] Creatinine [Mass/Vol] 0.7 mg/dL Normal 0.5-1.3 [facility] Comment on above: Performed By: #### 2 204992, 875395880, 6013579, 9352498, 2338312, 1162531, 5425622 ####[facility] [address] [place] [address] Globulin (S) [Mass/Vol] 2.9 g/dL Normal 1.4-4.0 [facility] Comment on above: Performed By: #### 2 822882, 665915738, 5680839, 2063985, 1206800, 7040740, 6110009 ####[facility] [address] [place] [address] Glucose [Mass/Vol] 124 mg/dL Normal 55-199 [facility] Comment on above: Result Comment: If t his glucose result represents a fasting glucose, interpretation should refer to the following reference range: 55-99 mg/dL Performed By: #### 2 430915, 725084499, 6774728, 3516838, 2459449, 7878128, 7098438 ####[facility] [address] [place] [address] Potassium [Moles/Vol] 4.0 mmol/L Normal 3.5-5.3 [facility] Comment on above: Performed By: #### 2 086888, [id number], 9400480, 1271139, 0595643, 0749630, 2550809 ####[facility] [address] [place] [address] Protein [Mass/Vol] 6.9 g/dL Normal 6.0-7.8 [facility] Comment on above: Performed By: #### 2 773118, [id number], 3095284, 5010514, 6042543, 7992518, 1261219 ####[facility] [address] [place] [address] Sodium [Moles/Vol] 139 mmol/L Normal 135-145 [facility] Comment on above: Performed By: #### 2 275222, 141008382, 5630769, 2686413, 3254101, 3062558, 7591030 ####[facility] [address] [place] [address] Urea nitrogen [Mass/Vol] 21 mg/dL Normal 5-21 [facility] Comment on above: Performed By: #### 2 060598, [id number], 1118015, 2541746, 8202895, 8982127, 4068448 ####[facility] [address] [place] [address] Urea nitrogen/Creatinine [Mass ratio] 30 No Units High 10-20 [facility] Comment on above: Performed By: #### 2 872382, [id number], 3898908, 8409237, 9239594, 8722773, 6856389 ####[facility] [address] [place] [address] Consent for Treatmenton 05-05 Consent for Treatment [id number] 11 [id number] #1.00CD:127 Normal [facility] Free T4on 06-01-2021 Free T4 [Mass/Vol] 0.86 ng/dL Normal 0.58-1.64 [facility] Comment on above: Performed By: #### 2 107622, [id number], 7620486, 7296821, 1453053, 7142039, 3399078 ####[facility] [address] [place] [address] CqlO2fqb 06-01-2021 HbA1c (Bld) [Mass fraction] 7.1 % High <=5.9 [facility] Comment on above: Performed By: #### 2 122029, 386948859, 2057779, 0203340, 5473861, 7074962, 5797608 ####[facility] [address] [place] [address] Lipid Panelon 06-01-2021 Cholesterol [Mass/Vol] 169 mg/dL Normal 120-200 [facility] Comment on above: Performed By: #### 2 514590, 503422841, 9696502, 3897407, 4931451, 2596529, 7405047 ####[facility] [address] [place] [address] Cholesterol in HDL [Mass/Vol] 50 mg/dL Invalid Interpretation Code [facility] Comment on above: Result Comment: HDL > or equal to 60 mg/dL: Low cardiovascular risk HDL < 40 mg/dL : High cardiovascular risk Performed By: #### 2 416348, 150624429, 3158861, 4648553, 8189118, 1066363, 5423964 ####[facility] [address] [place] [address] Cholesterol in LDL [Mass/Vol] 90 mg/dL Normal <=129 [facility] Comment on above: Performed By: #### 2 791161, 359186280, 4740607, 4932076, 5464575, 8120404, 9291984 ####[facility] [address] [place] [address] Cholesterol in VLDL [Mass/Vol] 18 mg/dL Normal 7-40 [facility] Comment on above: Performed By: #### 2 713682, 259603397, 2648679, 6567402, 6352776, 9856100, 7347470 ####[facility] [address] [place] [address] Triglyceride [Mass/Vol] 90 mg/dL Normal <=149 [facility] Comment on above: Performed By: #### 2 119599, 966992428, 5249875, 1834139, 3868159, 4923567, 9476488 ####[facility] [address] [place] [address] TSHon 06-01-2021 TSH Qn 3.81 m[IU]/L Normal 0.34-5.60 [facility] Comment on above: Performed By: #### 2 400130, 998789812, 4002537, 0805999, 7993330, 8457611, 4220864 ####[facility] [address] [place] [address] Superficial Wound Cultureon 12-05-2020 Superficial Wound Culture LEFT INFRAMAMMARY SUPERFICIAL SKIN CULTURE Moderate Normal Skin Riri 2 Days PERFORMED BY: [place] [address] PATHOLOGIST [employer] FILOMENA CLARKE M.D. [facility] Comment on above: Performed By: #### C USUP #### [place] [id number] [facility] Vital Signs Date Time Vital Sign Value Performing Clinician Facility 04-18-2022 15:00-0400 Blood Pressure Location Angelina SMILEY [facility] 04-18-2022 15:00-0400 Diastolic blood pressure 62 mm[Hg] [facility] 04-18-2022 15:00-0400 Heart rate 62 /min [facility] 04-18-2022 15:00-0400 Respiratory rate 18 /min [facility]ina [facility] 04-18-2022 15:00-0400 SaO2% (BldA) [Mass fraction] 97 % [facility]inayokasta [facility] [facility] 04-18-2022 15:00-0400 Systolic blood pressure 126 mm[Hg] Angelinayokasta SMILEY [facility] 03-07-2022 14:22-0400 Blood Pressure Location Angelinayokasta SMILEY [facility] 03-07-2022 14:22-0400 Diastolic blood pressure 66 mm[Hg] Angelinayokasta SMILEY [facility] 03-07-2022 14:22-0400 Heart rate 73 /min Angelinayokasta SMILEY [facility] 03-07-2022 14:22-0400 Respiratory rate 18 /min Angelinayokasta SMILEY [facility] 03-07-2022 14:22-0400 SaO2% (BldA) [Mass fraction] 98 % Angelinayokasta SMILEY [facility] 03-07-2022 14:22-0400 Systolic blood pressure 138 mm[Hg] Angelinayokasta SMILEY [facility] 02-05-2022 14:00-0400 Body height 156.21 cm Oli Olexa Other [facility] [employer] Other 02-05-2022 14:00-0400 Body mass index (BMI) [Ratio] 22.3 kg/m2 Oli Olexa Other [facility] [employer] Other 02-05-2022 14:00-0400 Body weight 54.43 kg Oli Olexa Other [facility] [employer] Other 01-30-2022 09:39-0400 Blood Pressure Location RINA SRIRAM [facility] [place] 01-30-2022 09:39-0400 Diastolic blood pressure 50 mm[Hg] RINA PEREZRY [facility] 01-30-2022 09:39-0400 Heart rate 61 /min RINA BHATIA [facility] 01-30-2022 09:39-0400 Respiratory rate 16 /min RINA BHATIA [facility] 01-30-2022 09:39-0400 Systolic blood pressure 108 mm[Hg] RINA PEREZRY [facility] 01-09-2022 13:58-0400 Body temperature 99 [degF] Miguel Angel Shah MD Work Phone: [employer] 01-09-2022 13:58-0400 Diastolic blood pressure 58 mm[Hg] Miguel Angel Shah MD Work Phone: [employer] 01-09-2022 13:58-0400 Heart rate 91 /min Miguel Angel Shah MD Work Phone: [email or web address] 01-09-2022 13:58-0400 Respiratory rate 18 /min Miguel Angel Shah MD Work Phone: [email or web address] 01-09-2022 13:58-0400 SaO2% (BldA) [Mass fraction] 94 % Miguel Angel Shah MD Work Phone: [employer] 01-09-2022 13:58-0400 Systolic blood pressure 143 mm[Hg] Miguel Angel Shah MD Work Phone: [employer] 01-04-2022 07:34-0400 Heart rate 80 /min Miguel Angel Shah MD Work Phone: [employer] 01-01-2022 21:07-0400 Heart rate 99 /min Miguel Angel Shah MD Work Phone: [employer] 01-01-2022 03:17-0400 Body height 154.9 cm Miguel Angel Shah MD Work Phone: [employer] 01-01-2022 03:05-0400 Body mass index (BMI) [Ratio] 24.79 kg/m2 Miguel Angel Shah MD Work Phone: [employer] 01-01-2022 03:05-0400 Body weight 59.51 kg Miguel Angel Shah MD Work Phone: [employer] 12-31-2021 23:34-0400 Diastolic blood pressure 84 mm[Hg] Janna Sauceda [facility] 12-31-2021 23:34-0400 Heart rate 78 /min Janna Sauceda [facility] 12-31-2021 23:34-0400 Mean blood pressure 115 mm[Hg] Janna Sauceda [facility] 12-31-2021 23:34-0400 Respiratory rate 16 /min Janna Sauceda [facility] 12-31-2021 23:34-0400 SaO2% (BldA) [Mass fraction] 98 % Janna Sauceda [facility] 12-31-2021 23:34-0400 Systolic blood pressure 176 mm[Hg] Janna Marche [facility] 12-31-2021 22:44-0400 Diastolic blood pressure 82 mm[Hg] Janna Marche [facility] 12-31-2021 22:44-0400 Heart rate 79 /min Janna Sauceda [facility] 12-31-2021 22:44-0400 Mean blood pressure 112 mm[Hg] Janna Marche [facility] 12-31-2021 22:44-0400 Respiratory rate 16 /min Janna Marche [facility] 12-31-2021 22:44-0400 SaO2% (BldA) [Mass fraction] 98 % Janna Marche [facility] 12-31-2021 22:44-0400 Systolic blood pressure 172 mm[Hg] Janna Marche [facility] 12-31-2021 21:44-0400 Diastolic blood pressure 83 mm[Hg] Janna Marche [facility] 12-31-2021 21:44-0400 Heart rate 82 /min Janna Marche [facility] 12-31-2021 21:44-0400 Respiratory rate 16 /min Janna Marche [facility] 12-31-2021 21:44-0400 SaO2% (BldA) [Mass fraction] 88 % Janna Marche [facility] 12-31-2021 21:44-0400 Systolic blood pressure 175 mm[Hg] Janna Marche [facility] 12-31-2021 20:44-0400 Mean blood pressure 112 mm[Hg] Janna Marche [facility] 12-31-2021 18:45-0400 Body temperature 97.88 [degF] Janna Lachelle [facility] 12-31-2021 18:45-0400 Heart rate 70 /min Janna Marche [facility] 12-31-2021 18:37-0400 Body temperature 97.88 [degF] Janna Marche [facility] 12-31-2021 18:37-0400 Heart rate 74 /min Janna Sauceda [facility] Encounters Encounter Date Encounter Type Care Provider Facility Start: 09-16-2023 End: 09-16-2023 ambulatory MIGUEL ANGEL GARCÍA Not Available Start: 07-15-2023 End: 07-16-2023 ambulatory MIGUEL ANGEL GARCÍA Not Available Start: 10-10-2022 End: 10-11-2022 Pre-admission assessment Axel Perales [facility] Start: 08-06-2022 Letter encounter Marcus rene Start: 08-04-2022 End: 08-04-[address] SKYLA DILLARD Facility: Start: 06-07-2022 End: 06-07-[address] SKYLA DILLARD Facility: Start: 04-18-2022 End: 04-19-2022 ambulatory Angelina SMILEY Facility:[facility] Start: 04-18-2022 End: 04-18-2022 Patient encounter procedure Angelina SMILEY [facility] Start: 03-16-2022 End: 03-16-[address] SKYLA DILLARD Facility: Start: 03-13-2022 ambulatory RINA Barnes ty:LORI [facility] Start: 03-07-2022 End: 03-08-2022 ambulatory XXXX NONE Facility:[facility] Start: 03-07-2022 End: 03-07-2022 Patient encounter procedure Angelina SMILEY [facility] Start: 02-19-2022 ambulatory JANNA Hughes lity:Radha RYAN Start: 02-05-2022 End: 02-06-2022 ambulatory OLI WHEELER [facility] Other Start: 02-05-2022 Office outpatient ne w 30 minutes Oli [facility] Start: 02-04-2022 Letter encounter Marcus rene Start: 02-04-2022 End: 02-04-[address] BABATUNDE LIM Facility: Start: 01-31-2022 ambulatory JANNA MANN Facili ty:[facility] [place] Start: 01-30-2022 ambulatory JANNA Garcia RYAN Facilleigh ty:[facility] Start: 01-30-2022 End: 01-31-2022 ambulatory RINA BHATIA Facility:[facility] [place] Start: 01-30-2022 End: 01-30-2022 Patient encounter procedure RINA BHATIA [facility] Start: 01-07-2022 ambulatory JANNA SAUCEDA Facility:[facility] Start: 01-02-2022 ambulatory JANNA SAUCEDA Facility: [facility] Start: 01-01-2022 ambulatory UNKNOWN PROVIDER Facili ty:[facility] Start: 01-01-2022 End: 01-09-2022 Evaluation and management of inpatient [facility]ANNA [facility]UCEDA [facility] Start: 01-01-2022 End: 01-09-2022 Evaluation and management of inpatient Miguel Angel Shah MD Work Phone: Inpatient [phone] Comment on above: Other fracture of ri ght femur, initial encounter for closed fracture (HCC) (Primary Dx); Fall, initial encounter; Ventricular premature depolarization; Other hypertrophic cardiomyopathy (HCC); Abnormal electrocardiogram (ECG) (EKG) Start: 12-31-2021 End: 01-01-2022 Emergency department patient visit Janna Sauceda Facility:[facility] Start: 12-31-2021 End: 01-01-2022 Emergency department patient visit Janna Sauceda [facility] Start: 10-23-2021 End: 10-24-2021 ambulatory JANNA Bhagat MANN Facility:Radha RYAN Start: 10-09-2021 End: 10-10-2021 ambulatory XXXX NONE Facility:[facility] Start: 10-09-2021 End: 01-16-2022 Pre-admission assessment Angelina SMILEY [facility] Start: 10-01-2021 End: 10-02-2021 ambulatory Angelina SMILEY Facility:[facility] Start: 09-17-2021 End: 09-18-2021 ambulatory Angelina SMILEY Facility:[facility] Start: 09-11-2021 End: 09-12-2021 ambulatory XXXX NONE Facility:[facility] Start: 06-27-2021 End: 06-28-2021 ambulatory JANNA MANN Facility:[facility] Start: 06-04-2021 ambulatory JANNA MANN Facili ty:[facility] Start: 06-01-2021 End: 06-02-2021 ambulatory JANNA Bhagat RYAN Facility:[facility] Start: 12-05-2020 End: 12-05-2020 Departed Referred Cristel Tala Work Phone: [facility] [place] Procedures Date Procedure Procedure Detail Performing Clinician Start: 09-16-2023 Computerized ophthalmic imaging retina Miguel Angel García DO Work Phone: Start: 09-16-2023 End: 09-16-2023 Oph medical xm&eval comprhnsv estab pt 1/> Exudative age-related macular degeneration of right eye with active choroidal neovascularization (HCC) (CMS/HCC) Miguel Angel García DO Work Phone: Comment on above: Exudative age-related macular degenerati on of right eye with active choroidal neovascularization (HCC) (CMS/HCC) (Primary Dx); 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; 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); Dry eyes; 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 Start: 01-09-2022 Glucose blood reagent strip Diana Marsh DO Work Phone: Start: 01-09-2022 Glucose blood reagent strip Diana Marsh DO Work Phone: Start: 01-09-2022 Glucose blood reagent strip Diana Marsh DO Work Phone: Start: 01-09-2022 Blood count complete automated Morris Sunshine MD Work Phone: Start: 01-08-2022 Glucose blood reagent strip Dianagriselda Marsh DO Work Phone: Start: 01-08-2022 Glucose blood reagent strip Diana Marsh DO Work Phone: Start: 01-08-2022 Heparin assay Adolfo Young MD Work Phone: Start: 01-08-2022 SARS-CoV-2 (COVID-19) RNA [Presence] in Unspecified specimen by KIMBERLY with probe detection Washington Neely MD Work Phone: Start: 01-08-2022 Glucose blood reagent strip Diana Marsh DO Work Phone: Start: 01-08-2022 Glucose blood reagent strip Diana Marsh DO Work Phone: Start: 01-08-2022 Blood count complete automated Morris Sunshine MD Work Phone: Start: 01-07-2022 Glucose blood reagent strip Diana Marsh DO Work Phone: Start: 01-07-2022 Glucose blood reagent strip Diana Marsh DO Work Phone: Start: 01-07-2022 Glucose blood reagent strip Diana Marsh DO Work Phone: Start: 01-07-2022 Radiologic exam chest single view Adolfo Young MD Work Phone: Start: 01-07-2022 Glucose blood reagent strip Megan Ta MD Work Phone: Start: 01-07-2022 Blood count complete automated Morris Sunshine MD Work Phone: Start: 01-06-2022 Glucose blood reagent strip Megan Ta MD Work Phone: Start: 01-06-2022 Glucose blood reagent strip Megan Ta MD Work Phone: Start: 01-06-2022 Glucose blood reagent strip Megan Ta MD Work Phone: Start: 01-06-2022 Glucose blood reagent strip Megan Ta MD Work Phone: Start: 01-06-2022 Assay of magnesium Washington Neely MD Work Phone: Start: 01-05-2022 Glucose blood reagent strip Megan Ta MD Work Phone: Start: 01-05-2022 Glucose blood reagent strip Megan Ta MD Work Phone: Start: 01-05-2022 Glucose blood reagent strip Megan Ta MD Work Phone: Start: 01-05-2022 Blood count complete automated Chucky Flores MD Work Phone: Start: 01-05-2022 Glucose blood reagent strip Megan Ta MD Work Phone: Start: 01-05-2022 RBC leukocytes reduced Chucky Palma Work Phone: Start: 01-05-2022 RED BLOOD CELL UNIT STATUS Chucky spears MD Work Phone: Start: 01-05-2022 End: 01-05-2022 Blood count complete automated Morris Sunshine MD Work Phone: Start: 01-05-2022 Blood typing, ABO, Rho(D) and RBC antibody screening Chucky Flores MD Work Phone: Start: 01-04-2022 Glucose blood reagent strip Megan Ta MD Work Phone: Start: 01-04-2022 Glucose blood reagent strip Megan Ta MD Work Phone: Start: 01-04-2022 Glucose blood reagent strip Megan Ta MD Work Phone: Start: 01-04-2022 Glucose blood reagent strip Megan Ta MD Work Phone: Start: 01-04-2022 Blood count complete automated Morris Sunshine MD Work Phone: Start: 01-03-2022 Glucose blood reagent strip Megan Ta MD Work Phone: Start: 01-03-2022 Glucose blood reagent strip Megan Ta MD Work Phone: Start: 01-03-2022 Blood count complete automated Chucky Flores MD Work Phone: Start: 01-03-2022 Glucose blood reagent strip Megan Ta MD Work Phone: Start: 01-03-2022 Ecg routine ecg w/least 12 lds trcg only w/o i&r Fhaeem Janna Wright MD Work Phone: Start: 01-03-2022 Glucose blood reagent strip Megan Ta MD Work Phone: Start: 01-03-2022 End: 01-03-2022 Transfusion of packed red blood cells Chucky Flores MD Work Phone: Start: 01-03-2022 RBC leukocytes reduced Chucky Palma Work Phone: Start: 01-03-2022 RED BLOOD CELL UNIT STATUS Chucky spears MD Work Phone: Start: 01-03-2022 End: 01-03-2022 Assay of magnesium Chucky Flores MD Work Phone: Start: 01-02-2022 Glucose blood reagent strip Megan Ta MD Work Phone: Start: 01-02-2022 Glucose blood reagent strip Megan Ta MD Work Phone: Start: 01-02-2022 Fluoroscopy up to 1 hour physician/qhp time Trever Umana MD Work Phone: Start: 01-02-2022 End: 01-02-2022 REDUCTION, OPEN, FEMUR, INTRAMEDULLARY JAC Eric Sher MD Work Phone: Start: 01-02-2022 Glucose blood reagent strip Megan Ta MD Work Phone: Start: 01-01-2022 Glucose blood reagent strip Megan Ta MD Work Phone: Start: 01-01-2022 Glucose blood reagent strip Megan Ta MD Work Phone: Start: 01-01-2022 Glucose blood reagent strip Megan Ta MD Work Phone: Start: 01-01-2022 Blood typing serologic abo Trever Umana MD Work Phone: Start: 01-01-2022 Glucose blood reagent strip Megan Ta MD Work Phone: Start: 01-01-2022 Blood typing, ABO, Rho(D) and RBC antibody screening Trever Umana MD Work Phone: Start: 01-01-2022 Assay of magnesium Ron Bach MD Work Phone: Start: 01-01-2022 CT BODY IMAGE IMPORT Ron Bach MD Work Phone: Start: 01-01-2022 CT NEURO IMAGE IMPORT Ron Bach MD Work Phone: Start: 01-01-2022 XRAY CHEST IMAGE IMPORT Ron Bach MD Work Phone: Start: 01-01-2022 XRAY LOWER EXTREMITY IMAG IMPORT Ron Bach MD Work Phone: Start: 01-01-2022 XRAY PELVIS IMAGE IMPORT Ron Bach MD Work Phone: Start: 01-01-2022 XRAY UPPER EXTREMITY IMAGE IMPORT Ron Bach MD Work Phone: Start: 01-01-2022 Ecg routine ecg w/least 12 lds trcg only w/o i&r Gemma Pansch DO Work Phone: Start: 10-02-2018 Cardiac catheterization Janna Saucead Specimen from breast obtained by biopsy (specimen) Janna Sauceda Plan of Treatment Date Care Activity Detail Author Start: 01-01-2032 Tetanus vaccination [facility] Start: 02-18-2024 End: 02-18-2024 Patient encounter procedure 02/18/2024 1:00 PM EDT Office Visit [facility] [address] [place] [address] Miguel Angel García DO [address] [place] [address] [facility] Start: 08-04-2022 Annual wellness visit Annual W ellness Visit (G0438) [facility] Start: 05-04-2022 Influenza vaccination Influenza Vacc ine (#1) [facility] Start: 03-04-2022 Influenza vaccination Influenza Vacc ine (#1) [facility] Start: 08-04-2021 Welcome to Medicare Visit (G0402) Welcome to Medicare Visit (G0402) [facility] Start: 06-29-2021 COVID-19 Vaccine (2 - Moderna series) COVID-19 Vaccine (2 - Moderna series) [facility] Start: 12-05-2020 Superficial Wound Culture Superficial Wound Culture [facility] Start: 1999 Screening for osteoporosis Bone Densitometry [facility] Start: 1984 Shingles (RZV) Vacci ne (1 of 2) Shingles (RZV) Vaccine (1 of 2) [facility] Start: 1940 Pneumococcal vaccination Pneumococcal Vaccine(s) (65+ yrs) (1 - PCV) [facility] Basic metabolic 2000 panel - Serum or Plasma BASIC METABOLIC PANEL Lab Routine Every 24 Hours until discontinued starting 01/04/2022, 7 completed [employer] Work Phone: Comment on above: Every 24 Hours until discontinued starting 01/04/2022, 7 completed End: 01-01-2022 Blood typing serologic abo ABO RH TYPE Lab Routine One time for 1 Occurrences starting 01/01/2022 until 01/01/2022 [facility] Work Phone: Comment on above: One time for 1 Occur rences starting 01/01/2022 until 01/01/2022 CBC panel - Blood by Automated count COMPLETE BLOOD COUNT Lab Routine Every 24 Hours until discontinued starting 01/04/2022, 7 completed [facility] Comment on above: Every 24 Hours until discontinued starting 01/04/2022, 7 completed [employer] fem shft fx w/insj imed implt w/wo screw OPEN TREATMENT, FEMORAL SHAFT FRACTURE, W/INSERTION, INTRAMEDULLARY IMPLANT, W/WO SCREW/CERCLAGE Procedures Routine Other fracture of right femur, initial encounter for closed fracture (HCC) Ordered: 01/02/2022 [facility] Work Phone: Comment on above: Ordered: 01/02/2022 Transfusion of packe d red blood cells TRANSFUSE RED CELLS Transfusion Routine 01/03/2022 4:08 AM EDT [employer] Work Phone: Transfusion of packe d red blood cells TRANSFUSE RED CELLS Transfusion Routine 01/03/2022 10:30 AM EDT [facility] Transfusion of packe d red blood cells [facility] Transfusion of packe d red blood cells TRANSFUSE RED CELLS Transfusion Routine 01/05/2022 6:16 AM EDT [facility] Immunizations Immunization Date Immunization Notes Care Provider [facility] 01-02-2022 Albumin Miguel Angel Bryson lt, MD Work Phone: [email or web address] 12-31-2021 tetanus toxoid, redu molly diphtheria toxoid, and acellular pertussis vaccine, adsorbed; Translations: [Boostrix (Tdap)] Janna Sauceda [facility] Comment on above: Early/Late Reason: E anjana/Late Reason: Nursing Judgment Early/Late Reason: E anjana/Late Reason: Nursing Judgment 06-27-2021 influenza, high dose seasonal, preservative-free Janna Sauceda [facility] 06-27-2021 influenza virus vacc ine, unspecified formulation [facility] 09-12-2020 SARS-CoV-2 (COVID-19 ) [id number] vaccine Janna Sauceda [facility] Comment on above: Result Comment: [facility] Result Comment: [facility] 08-14-2020 SARS-CoV-2 (COVID-19 ) [id number] vaccine Janna Sauceda [facility] Comment on above: Result Comment: [facility] Result Comment: [facility] 05-19-2020 influenza, high dose seasonal, preservative-free Janna Sauceda [facility] 05-26-2019 influenza, high dose seasonal, preservative-free Janna Sauceda [facility] 05-06-2018 influenza virus vacc ine, unspecified formulation Janna Sauceda [facility] 05-06-2018 influenza, high dose seasonal, preservative-free Miguel Angel Shah MD Work Phone: [facility] 07-12-2016 pneumococcal conjuga te vaccine, 13 valent Janna Sauceda [facility] 05-06-2016 influenza, injectabl e, quadrivalent, contains preservative Miguel Angel Shah MD Work Phone: [facility] 07-17-2009 novel influenza-H1N1 -09, preservative-free, injectable Miguel Angel Shah MD Work Phone: [facility] 08-06-1999 pneumococcal polysaccharide vaccine, 23 valent Janna Sauceda [facility] Payers Date Payer Category Payer Medicare [id number] 2020 Private Health Insurance [facility] [id number] 1960 Medicare [id number] 1960 Medicare [id number] 1934 Unknown [id number] 2.16. [id number] 1934 Unknown [id number] 2.16. 840.1.336393.3.579.2.732 1934 Unknown [id number] 2.16. 840.1.229846.3.579.2.732 1934 Unknown [id number] 2.16. 840.1.437765.3.579.2.732 1934 Unknown [id number] 2.16. 840.1.030875.3.579.2.732 1934 Unknown [id number] 2.16.8 40.1.976314.3.579.2.727 1934 Unknown [id number] 2.16.8 40.1.925694.3.579.2.72 1934 Unknown [id number] 2.16.8 40.1.517483.3.579.2.72 1934 Unknown [id number] 2.16.8 40.1.215274.3.579.2 1934 Unknown [id number] 2.16.8 40.1.112437.3.579.2 1934 Unknown [id number] 2.16.8 40.1.429116.3.579.272 1934 Unknown [id number] 2.16.8 40.1.736291.3.579.2 1934 Unknown [id number] 2.16.8 40.1.695412.3.579.272 1934 Unknown [id number] 2.16.8 40.1.912162.3.579.2.72 1934 Unknown [id number] 2.16.8 40.1.628968.3.579.2.72 1934 Unknown [id number] 2.16.8 40.1.459849.3.579.272 1934 Unknown [id number] 2.16.8 40.1.180287.3.579.2.72 1934 Unknown [id number] 2.16.8 40.1.678434.3.579.272 1934 Unknown [id number] 2.16.8 40.1.957268.3.579.2.727 1934 Unknown [id number] 2.16.84 0.1.689810.3.579.2.593 1934 Unknown [id number] 2.16.84 0.1.711972.3.579.2.593 1934 Unknown [id number] 2.16.84 0.1.267780.3.579.2.593 1934 Unknown [id number] 2.16.84 0.1.013012.3.579.2.593 1934 Unknown [id number] 2.16.84 0.1.806847.3.579.2.593 1934 Unknown [id number] 2.16.84 0.1.250163.3.579.2.1259 1934 Unknown [id number] 2.16.840 .[id number] Self-pay Self Pay [id number] Social History Date Type Detail Facility [facility] Start: 1935 Sex Assigned At Female [facility] Tobacco [facility] Comment on above: denies denies Start: 03-12-2023 Female [facility] Start: 01-01-2022 End: 03-12-2023 Tobacco smoking status NHIS Never smoked tobacco [facility] Start: 01-01-2022 Tobacco use and exposure Smokeless tobacco non-user [facility] Start: 01-03-2022 History SDOH Financial 5 [facility] Start: 01-03-2022 History SDOH Food Worry 1 [facility] Start: 01-03-2022 History SDOH Transpo rt Med 2 [facility] Start: 1935 Sex Assigned At [facility] Start: 12-22-2021 End: 01-01-2022 Exposure to SARS-CoV-2 (event) Not sure [facility] Tobacco smoking status Never [facility] Start: 03-12-2023 History of Social function [facility] Medical Equipment Procedure Code Equipment Code Equipment Origin al Text Equipment Identifier Dates Screw 5.0 X 40mm Self-Tapping Ea1 [id number] - [id number] Start: 01-02-2022 Blade Helical Tf na 80mm Ea1 038.380s - [id number] Start: 01-02-2022 Goals Date Patient Goal Desired Activity /State Functional Status Date Assessment Result Facility 04-18-2022 Functional Status N/A [facility] 03-07-2022 Functional Status N/A [facility] 01-30-2022 Functional Status N/A [facility] Clinical Notes 09-26-2021 to 09-16-2023 Miguel Angel García, - 09/16/2023 1:00 PM EST Note Date & Type Note Facility 09-16-2023 Note Right Eye Quality was good. Scan locations included subfoveal. Progression has been stable. Findings include abnormal foveal contour, disciform scar. Left Eye Quality was good. Scan locations included subfoveal. Progression has been stable. Findings include abnormal foveal contour, disciform scar. [facility] 09-16-2023 History of Presen t illness Narrative Images from the original note were not included. 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 Importance of smoking cessation, blood pressure control, and healthy diet were emphasized. Patient was advised to consider ultraviolet-B blocking sunglasses. In accordance with the AREDS study, appropriate antioxidant and mineral supplements were prescribed. Patient was instructed to self monitor their monocular vision (reading/Amsler Grid) at least weekly. Patient should immediately report any new onset of decreased vision or metamorphopsia. 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 Dry eyes - Dry Eyes OU -- Environmental changes to minimize dryness and exposure and the use of artificial tears were recommended. 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 Pt uncooperative looking in different directions and examining so unable to ascertain cause (ie. Retinal detachment (RD) I explained the scenario with her children and at this time it was felt best to observe rather than consider any referral or surgery. Stable exam documented in this encounter [facility] 02-06-2022 Note PROCEDURE: XR FEMUR RT HISTORY: Postprocedural state finding ; pain of right femur following surgery COMPARISON: None. FINDINGS: BONES:Comminuted fracture of proximal femoral diaphysis with placement of an intramedullary jac with proximal compression screw and distal locking screws. SOFT TISSUES:Skin james overlying the proximal and distal thigh. EFFUSION:None visible. OTHER: Negative. IMPRESSION: 1. Intramedullary jac repair of comminuted right femur fractures. No suspicious findings or prior studies for comparison. Electronically authenticated by: JOSEPH VALDOVINOS Date: 2022-02-06 09:59 [facility] 02-05-2022 Evaluation note Encounter Date Diagnosis Assessment Notes Feb, Right hip pain (ICD-10 - M25.551) Feb, Other specified postprocedural states (ICD-10 - Z98.890) Radiographs reviewed with patient and company. May progress weight bearing slowly with walker and aid of physical therapy. Continue gentle motion and strengthening. Progress activity as tolerated. Call with questions/conc erns. Feb, Closed fracture of proximal end of right femur, initial encounter (ICD-10 - S72.001A) [facility] Other 06-29-2022 Hospital Discharge instructions Patient Education 01/30/2022 13:42:43 Acute Urinary Retention, Female Acute Urinary Retention, Female Acute urinary retention is a condition in which a person is unable to pass urine. This can last fora short time or for a long time. If left untreated, it can result in kidney damage or other seriouscomplications. What are the causes? This condition may be caused by: Obstruction or narrowing of the tube that drains the bladder (urethra). This may be caused by surgery or problems with nearby organs, which can press or squeeze the urethra. Problems with the nerves in the bladder. These can be caused by diseases, such as multiple sclerosis, or by spinal cord injuries. Certain medicines. Tumors in the area of the pelvis, bladder, or urethra. Degenerative cognitive conditions such as delirium or dementia. Diabetes. Vaginal childbirth. Bladder or urinary tract infection. Constipation. Blood in the urine (hematuria). Injury to the bladder or urethra. Psychological (psychogenic) conditions. Someone may hold her urine due to trauma or because she does not want to use the bathroom. What are the signs or symptoms? Symptoms of this condition include: Trouble urinating. Pain in the lower abdomen. How is this diagnosed? This condition is diagnosed based on a physical exam and a medical history. You may also have othertests, including: An ultrasound of the bladder or kidneys or both. Blood tests. A urine analysis. Additional tests may be needed such as an MRI, kidney, or bladder function tests. How is this treated? Treatment for this condition may include: Medicines. Placing a thin, sterile tube (catheter) into the bladder to drain urine out of the body. This is called an indwelling urinary catheter. After being inserted, the catheter is held in place with a small balloon that is filled with sterile water. Urine drains from the catheter into a collection bag outside of the body. Behavioral therapy. Treatment for any underlying conditions. If needed, you may be treated in the hospital for kidney function problems or to manage other complications. Follow these instructions at home: Take [id number] and prescription medicines only as told by your health care provider. Avoid certain medicines, such as decongestants, antihistamines, and some prescription medicines. Do not take any medicine unless your health care provider has approved. If you were given an indwelling urinary catheter, take care of it as told by your health care provider. Drink enough fluid to keep your urine clear or pale yellow. If you were prescribed an antibiotic, take it as told by your health care provider. Do not stop taking the antibiotic even if you start to feel better. Do not use any products that contain nicotine or tobacco, such as cigarettes and e-cigarettes. If you need help quitting, ask your health care provider. Monitor any changes in your symptoms. Tell your health care provider about any changes. If instructed, monitor your blood pressure at home. Report changes as told by your health care provider. Keep all follow-up visits as told by your health care provider. This is important. Contact a health care provider if: You have uncomfortable bladder contractions that you cannot control (spasms) or you leak urine withthe spasms. Get help right away if: You have chills or fever. You have blood in your urine. You have a catheter and: ?Your catheter stops draining urine. ?Your catheter falls out. Summary Acute urinary retention is a condition in which a person is unable to pass urine. If left untreated, it can result in kidney damage or other serious complications. This condition may be caused by surgery or problems with nearby organs, which can press or squeeze the urethra. Treatment may include medicines and placement of an indwelling urinary catheter. Monitor any changes in your symptoms. Tell your health care provider about any changes. This information is not intended to replace advice given to you by your health care provider. Make sure you discuss any questions you have with your health care provider. Document Released: 07/20/2007 Document Revised: 07/03/2018 Document Reviewed: 08/22/2017 [employer] Patient Education 2020 [employer]. [facility] 06-08-2022 Note Attestation signed by Diana Marsh DO at 01/10/2022 10:24 PM Teaching Physician Note: I saw and evaluated the patient. I personally obtained the cloud and critical portions of the history and physical exam. I reviewed the resident's documentation and discussed the patient with the resident. I agree with the resident's medical decision making as documented in the resident's note. DIANA MARSH DO Critical care / Trauma / Emergency general surgery My pager: [phone] Trauma resident: [phone] ACS resident: [phone] (admitted) / -[phone] (new pts) ICU resident: [phone] (ticu) / -[phone] (sicu) DISCHARGE SUMMARY [address] [address] Toribio Betts Date of : 1935 86 year oldfemale Attending iDana Marsh DO Date of Admission 01/01/2022 Date of Discharge 01/09/22 [facility] DIVISION OF ACUTE CARE SURGERY FINAL DIAGNOSES: Hospital Problems as of 01/09/2022 Other fracture of right femur, initial encounter for closed fracture (HCC) PROCEDURES: IM nailing of R femur shaft fx on 01/02/[address] Sher DISCHARGE MEDICATIONS: Current Discharge Medication List START taking these medications Details senna (SENOKOT) 8.6 MG tablet Take 1 Tablet by mouth at bedtime. Qty: 30 Tablet, Refills: 0 acetaminophen (TYLENOL) 325 mg tablet Take 2 Tablets by mouth every 4 hours. Qty: 30 Tablet, Refills: 0 bisacodyl (DULCOLAX) 10 MG suppository Insert 1 Suppository in the rectum daily as needed for Constipation. Qty: 28 Suppository, Refills: 0 docusate sodium (COLACE) 100 MG capsule Take 1 Capsule by mouth 2 times daily. Qty: 60 Capsule, Refills: 3 enoxaparin (LOVENOX) 30 MG/0.3ML injection Inject 0.3 mL under the skin 2 times daily. Qty: 25.2 mL, Refills: 0 esomeprazole (NEXIUM) 20 MG capsule Take 1 Capsule by mouth daily (30 minutes before breakfast). Qty: 30 Capsule, Refills: 3 ondansetron (ZOFRAN) 4 MG/2ML injection 2 mL by Intravenous Push route every 4 hours as needed. Qty: 15 mL, Refills: 0 polyethylene glycol (MIRALAX) packet Dissolve 1 Packet in 8 ounces of liquid and drink daily. Qty: 30 Each, Refills: 0 CONTINUE these medications which have NOT CHANGED Details clopidogrel (PLAVIX) 75 MG tablet Apixaban (Eliquis) 2.5 MG tablet Take 2.5 mg by mouth. metoprolol (LOPRESSOR) 25 MG tablet Take 25 mg by mouth 2 times daily. furosemide (LASIX) 20 MG tablet Take 20 mg by mouth daily. atorvastatin (LIPITOR) 40 mg tablet Take 40 mg by mouth daily. sertraline (Zoloft) 25 MG tablet Take 25 mg by mouth daily. isosorbide dinitrate (ISORDIL) 30 MG tablet Take 30 mg by mouth. omeprazole (PRILOSEC) 20 MG capsule REASON FOR HOSPITALIZATION: Toribio Betts???is a 86 year old???female???brought in by EMS as a transfer from [facility]???following fall from standing on 12/31. She fell and her leg twisted under her. She is on Eliquis. She sustained R right femoral shaft fx during this event. ??? SIGNIFICANT FINDINGS: Catalog of Injuries -???R femoral shaft fractrue - Acute blood loss anemia - Hyponatremia???- resolved Incidental Findings None HOSPITAL COURSE: Hospital Course: S/p fall, patient was admitted to [facility]. She???Underwent intramedullary implant for femoral shaft fx with ortho, patient Hb dropped to 6.5 and was transfused???2???u pRBC. Additionally, patient received 2 u pRBC and fainted during therapy, she received, s/p 2 units of PRBC overnight. The patient was seen and examined on the day of discharge with the following findings: General:???NAD, awake/alert HEENT:???NCAT CV:???RRR Pulmonary:???CTAB, unlabored breathing on RA. Abdomen: soft, dis-tended and non-tender, suprapubic distention and tenderness Musculoskeletal:???left leg tender, mild +1 pitting edema bilaterally, motor and sensations intact.???Dressing with some saturation. Pitting edema in LE. Neurological: awakes to voice, at baseline. Condition at discharge: improved Diet: No restrictions Restrictions: * Weight lift/push: NWB right leg, otherwise as tolerated * Spine: Clear * Extremity: Right Lower Extremity: NWB Functional status: ambulatory Patient discharge to: alf facility ANTICIPATED FOLLOW UP: No future appointments. Ortho, Dr Terrell, 2 weeks PCP Urology for Cortes removal Other indicated follow up and instructions for scheduling: Discharge Procedure Orders OPEN TREATMENT, FEMORAL SHAFT FRACTURE, W/INSERTION, INTRAMEDULLARY IMPLANT, W/WO SCREW/CERCLAGE VTE RISK AT DISCHARGE: Per trauma program protocol, the patient does REQUIRE post-discharge VTE prophylaxis due to: NWB or FFWB, single LE or BLE fractures limiting mobility. Patient will require Lovenox 30mg BID (TBI, select spine pts) for 6 weeks until 02/20/22 E (more content not included)...[email or web address] [id number] Note* Care Plan Note - Chai Garcia RN - 01/09/2022 3:19 PM EDT Problem: Routine Care: Goal: Patient care will be managed and maintained throughout hospital stay per unit specific routine care procedure 01/09/2022 1519 by Chai Garcia RN Outcome: Adequate for Discharge 01/09/2022 09 by Chai Garcia RN Outcome: Progressing Problem: Impaired Mobility: Goal: Ability to tolerate increased activity will improve and be maintained 01/09/2022 1519 by Chai Garcia RN Outcome: Adequate for Discharge 01/09/2022926 by Chai Garcia RN Outcome: Progressing Problem: Activity Intolerance: Goal: Demonstrate progressive return to baseline activity level 01/09/2022 1519 by Chai Garcia RN Outcome: Adequate for Discharge 01/09/2022 09 by Chai Garcia RN Outcome: Progressing Problem: Discharge Planning: Goal: Discharge needs of the adult patient will be met 01/09/2022 1519 by Chai Garcia RN Outcome: Adequate for Discharge 01/09/2022926 by Chai Garcia RN Outcome: Progressing Pt IV removed, pain meds given for the trip, son aware of transfer via DM, report called to [facility] [id number] Miscellaneous Notes* Care Plan Note - Chai Garcia RN - 01/09/2022 3:19 PM EDT Problem: Routine Care: Goal: Patient care will be managed and maintained throughout hospital stay per unit specific routine care procedure 01/09/20221518 by Chai Garcia RN Outcome: Adequate for Discharge 01/09/2022926 by Chai Garcia RN Outcome: Progressing Problem: Impaired Mobility: Goal: Ability to tolerate increased activity will improve and be maintained 01/09/20221518 by Chai Garcia RN Outcome: Adequate for Discharge 01/09/2022926 by Chai Garcia RN Outcome: Progressing Problem: Activity Intolerance: Goal: Demonstrate progressive return to baseline activity level 01/09/20221518 by Chai Garcia RN Outcome: Adequate for Discharge 01/09/2022926 by Chai Garcia RN Outcome: Progressing Problem: Discharge Planning: Goal: Discharge needs of the adult patient will be met 01/09/20221518 by Chai Garcia RN Outcome: Adequate for Discharge 01/09/2022926 by Chai Garcia RN Outcome: Progressing Pt IV removed, pain meds given for the trip, son aware of transfer via DM, report called to [facility] * Discharge Planning Note - Radha Cox LSW - 01/09/2022 1:37 PM EDT CASE MANAGEMENT/SOCIAL WORK SNF DC NOTE: Pt has been cleared for transfer to SNF on this date Pt will be transferred to [facility] via Yusuf Garcia ([id number]) at 3:30 PM Nursing report may be called to [phone] Support person notified: pt and son at bedside Patient/Family, team aware of above and agreeable. For discharge, please ensure the following is completed: MD to place DC order, reconcile meds, and print narcotics to go with patient to SNF [employer]ing [employer] to print Discharge Summary, [place], Summary of Care, Narcotic Scripts, and Signature Page and place in a packet to be given to charter coach driver If transport/discharge needs to be adjusted/cancelled, team (/RN) to cancel transport, update support person, and update receiving facility. Radha Cox [facility] [phone] * Care Plan Note - Chai Garcia RN - 01/09/2022 9:27 AM EDT Problem: Routine Care: Goal: Patient care will be managed and maintained throughout hospital stay per unit specific routine care procedure Outcome: Progressing Problem: Impaired Mobility: Goal: Ability to tolerate increased activity will improve and be maintained Outcome: Progressing Problem: Anxiety: Goal: Level of anxiety will decrease Outcome: Progressing Problem: Safety: Goal: Patient will remain free of falls during hospital stay Outcome: Progressing Problem: Discharge Planning: Goal: Discharge needs of the adult patient will be met Outcome: Progressing Pt pain controlled, confused at times about date, tolerating diet, SNF placement * Care Plan Note - Eun Alicea RN - 01/08/2022 7:37 AM EDT Problem: Routine Care: Goal: Patient care will be managed and maintained throughout hospital stay per unit specific routine care procedure Outcome: Progressing Note: Patient care is being managed per unit protocol Problem: Impaired Mobility: Goal: Ability to tolerate increased activity will improve and be maintained Outcome: Progressing Problem: Activity Intolerance: Goal: Demonstrate progressive return to baseline activity level Outcome: Progressing Problem: VTE Prophylaxis: Goal: Will be free of DVT Outcome: Progressing Problem: Fluid and Electrolyte Imbalance: Goal: Adequate fluid and electrolyte balance will be achieved and maintained Outcome: Progressing Note: Labs drawn as ordered Problem: Anxiety: Goal: Level of anxiety will decrease Outcome: Progressing Problem: Acute Pain: Goal: Ability to identify pain intensity on a pain scale and rate it consistently will be achieved and maintained Outcome: Progressing Note: Numeric pain scale is being managed per unit protocol Problem: Safety: Goal: Patient will remain free of falls during hospital stay Outcome: Progressing Problem: Discharge Planning: Goal: Discharge needs of the adult patient will be met Outcome: Progressing * Care Plan Note - Shakira Johnson RN - 01/07/2022 7:22 AM EDT Problem: Routine Care: Goal: Patient care will be managed and maintained throughout hospital stay per unit specific routine care procedure Outcome: Progressing Note: Patient rounded on per hourly rounding unit protocol. Call light within reach, siderails in place, encouraged to call for assistance when needed. Problem: Impaired Mobility: Goal: Ability to tolerate increased activity will improve and be maintained Outcome: Progressing Problem: Activity Intolerance: Goal: Demonstrate progressive return to baseline activity level Outcome: Progressing Problem: VTE Prophylaxis: Goal: Will be free of DVT Outcome: Progressing Problem: Fluid and Electrolyte Imbalance: Goal: Adequate fluid and electrolyte balance will be achieved and maintained Outcome: Progressing Problem: Anxiety: Goal: Level of anxiety will decrease Outcome: Progressing Problem: Acute Pain: Goal: Ability to identify pain intensity on a pain scale and rate it consistently will be achieved and maintained Outcome: Progressing Note: Pain managed through scheduled and PRN medications. Patient able to rate pain using numeric pain scale. Problem: Safety: Goal: Patient will remain free of falls during hospital stay Outcome: Progressing Note: Bed alarm intact. Patient reminded to call for assistance before getting out of bed as needed. Problem: Discharge Planning: Goal: Discharge needs of the adult patient will be met Outcome: Progressing * Care Plan Note - Shakira Johnson RN - 01/06/2022 7:53 AM EDT Problem: Routine Care: Goal: Patient care will be managed and maintained throughout hospital stay per unit specific routine care procedure Outcome: Progressing Note: Patient rounded on per hourly rounding unit protocol. Call light within reach, siderails in place, encouraged to call for assistance when needed. Problem: Impaired Mobility: Goal: Ability to tolerate increased activity will improve and be maintained Outcome: Progressing Note: PT/OT consults Problem: Activity Intolerance: Goal: Demonstrate progressive return to baseline activity level Outcome: Progressing Problem: VTE Prophylaxis: Goal: Will be free of DVT Outcome: Progressing Problem: Fluid and Electrolyte Imbalance: Goal: Adequate fluid and electrolyte balance will be achieved and maintained Outcome: Progressing Problem: Anxiety: Goal: Level of anxiety will decrease Outcome: Progressing Problem: Acute Pain: Goal: Ability to identify pain intensity on a pain scale and rate it consistently will be achieved and maintained Outcome: Progressing Note: Pain managed through scheduled and PRN medications. Patient able to rate pain using numeric pain scale. Problem: Safety: Goal: Patient will remain free of falls during hospital stay Outcome: Progressing Problem: Discharge Planning: Goal: Discharge needs of the adult patient will be met Outcome: Progressing * Treatment Plan Note - Elvira Love MD - 01/05/2022 9:42 AM EDT Orthopaedic Surgery - Plan of Care Note Paged re saturated aquacel dressing. Replaced with new dressing - dressing c/d/i - incisions healing appropriately - SILT - Foot warm and well perfused - Wiggles toes Elvira (Ailyn) MD [facility] Orthopaedic Surgery, PGY-6 * Care Plan Note - Adolfo Yu RN - 01/05/2022 7:45 AM EDT Problem: Routine Care: Goal: Patient care will be managed and maintained throughout hospital stay per unit specific routine care procedure Outcome: Progressing Problem: Impaired Mobility: Goal: Ability to tolerate increased activity will improve and be maintained Outcome: Progressing Problem: Activity Intolerance: Goal: Demonstrate progressive return to baseline activity level Outcome: Progressing Problem: VTE Prophylaxis: Goal: Will be free of DVT Outcome: Progressing Note: Lovenox BID Problem: Fluid and Electrolyte Imbalance: Goal: Adequate fluid and electrolyte balance will be achieved and maintained Outcome: Progressing Problem: Anxiety: Goal: Level of anxiety will decrease Outcome: Progressing Problem: Acute Pain: Goal: Ability to identify pain intensity on a pain scale and rate it consistently will be achieved and maintained Outcome: Progressing Problem: Safety: Goal: Patient will remain free of falls during hospital stay Outcome: Progressing Problem: Discharge Planning: Goal: Discharge needs of the adult patient will be met Outcome: Progressing * Care Plan Note - Mandy Boo RN - 01/04/2022 4:36 PM EDT Problem: Routine Care: Goal: Patient care will be managed and maintained throughout hospital stay per unit specific routine care procedure Outcome: Progressing Rounding per floor protocol, call light in reach Problem: Impaired Mobility: Goal: Ability to tolerate increased activity will improve and be maintained Outcome: Progressing Problem: Activity Intolerance: Goal: Demonstrate progressive return to baseline activity level Outcome: Progressing Problem: VTE Prophylaxis: Goal: Will be free of DVT Outcome: Progressing SCDs, lovenox Problem: Fluid and Electrolyte Imbalance: Goal: Adequate fluid and electrolyte balance will be achieved and maintained Outcome: Progressing Problem: Anxiety: Goal: Level of anxiety will decrease Outcome: Progressing Problem: Acute Pain: Goal: Ability to identify pain intensity on a pain scale and rate it consistently will be achieved and maintained Outcome: Progressing Problem: Safety: Goal: Patient will remain free of falls during hospital stay Outcome: Progressing Educated pt on fall risk and prevention Problem: Discharge Planning: Goal: Discharge needs of the adult patient will be met Outcome: Progressing * Care Plan Note - Mandy Boo RN - 01/03/2022 10:38 AM EDT Problem: Routine Care: Goal: Patient care will be managed and maintained throughout hospital stay per unit specific routine care procedure Outcome: Progressing Rounding per floor protocol, call light in reach Problem: Impaired Mobility: Goal: Ability to tolerate increased activity will improve and be maintained Outcome: Progressing PT/OT Problem: Activity Intolerance: Goal: Demonstrate progressive return to baseline activity level Outcome: Progressing PT/OT Problem: VTE Prophylaxis: Goal: Will be free of DVT Outcome: Progressing SCDs, lovenox Problem: Fluid and Electrolyte Imbalance: Goal: Adequate fluid and electrolyte balance will be achieved and maintained Outcome: Progressing Problem: Anxiety: Goal: Level of anxiety will decrease Outcome: Progressing Problem: Acute Pain: Goal: Ability to identify pain intensity on a pain scale and rate it consistently will be achieved and maintained Outcome: Progressing Problem: Safety: Goal: Patient will remain free of falls during hospital stay Outcome: Progressing Educated pt on fall risk and prevention Problem: Discharge Planning: Goal: Discharge needs of the adult patient will be met Outcome: Progressing * OP Note - Eric Sher MD - 01/02/2022 4:24 PM EDT Name: TORIBIO BETTS MR#: [id number] ENC#: [id number] Date of Procedure: 01/02/2022 ATTENDING SURGEON: Eric Sher MD FIRST SURGEON: Joselito Patel PREOPERATIVE DIAGNOSIS: Right proximal 3rd femur shaft fracture. POSTOPERATIVE DIAGNOSIS: Right proximal 3rd femur shaft fracture. PROCEDURE PERFORMED: IM nail of right femur fracture. CPT code 94590. ANESTHESIA: GETA. ESTIMATED BLOOD LOSS: 200 mL. SPECIMENS: None. COMPLICATIONS: None apparent. IMPLANTS: Synthes TFNA 10 x 380 mm. BRIEF HISTORY AND OPERATIVE INDICATION: The patient is an 86-year-old female, who had a ground level fall at home. She had immediate right hip and proximal thigh pain. She was found to have a displaced right femur fracture. Of note, she is on Plavix and Eliquis. She was admitted by the trauma team and cleared for surgery with me today. Plavix and Eliquis have been given a 48 hours. We proceed comfortable proceeding with fixation with the nail today. I have gone over the risks, benefits, and alternatives of the procedure with the patient as well as her sons and informed consent was obtained and they elected to proceed. DESCRIPTION OF PROCEDURE: The patient was brought to the operating room, laid supine on operating table, had all bony prominences well padded. She underwent general endotracheal anesthesia under careof the anesthesia team and did so without complication. She received 2 g of IV Ancef for antibioticprophylaxis and was prepped and draped in the usual sterile fashion. A time-out was then taken, which included reading the consent aloud, verifying the procedure to be performed as well as the terry on the right thigh that was done by me in the holding area and coincided with the x-rays in the room.All operative personnel confirmed the time-out. I used the [place] table to pull some in-line traction, a little bit abduction and just a little bit of internal rotation and spiral proximal 3rd femur shaft fracture lined up nicely on AP and lateral views. It was then a little bit of valgus and I used a percutaneous incision with a ball spike and a shoulder hook in order to tweak that reduction. We then gained a starting point at the medial portion of the tip of the trochanter and central with the head and neck shaft axis on the lateral. This was driven in proximally. We incised over the wire, gained access to the femoral canal with the curved ball-tipped guidewire. Seated across the fracture site down at the level of the knee. We measured for a 380 mm nail. I did three passes with the reamer, 9.5, 10.5 and 11.5. We selected the 10 x 380 TFNA. Holding the fracture reduced the entire time. This was seated across the fracture site. Length alignment rotation looked excellent based upon our cortical reads. We instrumented with a helical blade proximally. I medialized and gained a little bitof compression and then locked it into place. Two distal interlocking screws were placed in static p osition to complete the construct. The traction was removed as well as the jig. Final x-rays were taken along the length of the right femur confirming our reduction and fixation. I was pleased with how everything looked. The wounds were copiously irrigated with normal saline. A layered closure was performed. The leg was cleansed and sterile dressing was placed. All counts including, but not limited to sponges and needles were correct at the end of the procedure and the patient was extubated andtransferred stable to the PACU with no apparent complications. POSTOPERATIVE CARE: She can weight bear as tolerated on the right lower extremity. She will receiveAncef in the perioperative. It is okay to resume her Plavix and Eliquis in the morning. She will primarily be managed by the trauma team. We will courage mobilization with physical therapy. ATTESTATION: I, Eric Sher, was scrubbed and present for the critical portions of this procedure and excision. Eric Sher MD /MedQ/ Dict: 01/02/2022 11:34:47 TRANS: 01/02/2022 14:21:14 JOB: [id number] DictJob#: [id number] * Care Plan Note - Araseli Diego RN - 01/02/2022 12:52 PM EDT Problem: Routine Care: Goal: Patient care will be managed and maintained throughout hospital stay per unit specific routine care procedure Outcome: Progressing Note: Hourly rounding performed. Problem: Impaired Mobility: Goal: Ability to tolerate increased activity will improve and be maintained Outcome: Progressing Note: Angelo scale interventions in place. Problem: Activity Intolerance: Goal: Demonstrate progressive return to baseline activity level Outcome: Progressing Note: PT/OT ordered. Problem: VTE Prophylaxis: Goal: Will be free of DVT Outcome: Progressing Note: SCDs and Lovenox ordered. Problem: Fluid and Electrolyte Imbalance: Goal: Adequate fluid and electrolyte balance will be achieved and maintained Outcome: Progressing Note: Continuous IVF ordered. Problem: Anxiety: Goal: Level of anxiety will decrease Outcome: Progressing Note: Calming techniques used during Pt care. Problem: Acute Pain: Goal: Ability to identify pain intensity on a pain scale and rate it consistently will be achieved and maintained Outcome: Progressing Note: Numeric pain scale in use. Problem: Safety: Goal: Patient will remain free of falls during hospital stay Outcome: Progressing Note: High risk falls interventions in place. Problem: Discharge Planning: Goal: Discharge needs of the adult patient will be met Outcome: Progressing Note: SNF pending medical clearance. * Brief Operative Note - Joselito Patel MD - 01/02/2022 10:42 AM EDT Brief Operative Note MAIN OR 08 Toribio Maldonadomahad 86 year old female Surgical Contact Serial Number: [id number] Preoperative Diagnosis: Other fracture of right femur, initial encounter for closed fracture (HCC) [S72.8X1A] Postoperative Diagnosis: * Other fracture of right femur, initial encounter for closed fracture (HCC) [S72.8X1A] Procedures: Surgical CPTs Procedures OPEN TREATMENT, FEMORAL SHAFT FRACTURE, W/INSERTION, INTRAMEDULLARY IMPLANT, W/WO SCREW/CERCLAGE No data filed Surgeon(s): Surgeon(s): Eric Sher MD Staff: Scrub: Christine Matson Pretzel Twisting Machine Operator Nurse: Heather Pedroza RN Retail Selling Floor Leader: Lety Clarke Resident Physician In Radiology: Joselito Patel MD; Salma Mae MD Anesthesia: General Anesthesiologist: Davide Mcintosh DO CAA: Henrique Quijano CAA [place] REPRESENTATIVE: Erika Islas APRN-CRNA Specimen(s): * No specimens in log * Estimated Blood Loss: greater than 10 cc -- Esitmated Amount: 100 Lines/Drains: Peripheral IV Access: 01/01/22100 20 gauge Right Forearm (Active) Site Assessment WNL;Dressing intact 01/01/222007 Infusion Status Port #1 Capped;Patent 01/01/222007 Peripheral IV Access: 01/01/22100 22 gauge Left Forearm Present on Arrival to Hospital (Active) Site Assessment WNL;Dressing intact 01/01/222007 Infusion Status Port #1 Infusing;Patent 01/01/222007 Temporarily Retained Foreign Object: No Findings: Ortho Fracture Complications: None Status at end of surgery: Stable Activity: weight bearing as tolerated Surgical wound class: Yes, wound was clean. Patient Class: Inpatient. Is this a patient scheduled as an outpatient that needs to be admitted as an inpatient? No Dr. Sher was present in the OR for the critical portion of the procedure and procedure sign-out. Ortho Postop Plan WBAT RLE 24h ancef DVT ppx per primary recommend 6 week course Aquacel dressing until POD7 Follow up in [address] Sher Signed by Joselito Patel MD 01/02/2022 11:51 AM * Anesthesia Attestation - Davide Mcintosh DO - 01/02/2022 9:54 AM EDT Anesthesia Attestation ATTESTATION OF INFORMED CONSENT FOR ANESTHESIA Anesthesia options were discussed with the patient and/or legal sales representative adding machines. The risks, benefits and alternatives were reviewed. Questions regarding anesthesia were answered. Patient and/or legal sales representative adding machines knows such anesthetics and procedures may be performed by Resident physicians, Certified Anesthesiologist Assistants, or Certified Nurse Anesthetists under the supervision of a physician. The patient /or the patient s legal representativeagree with the plan for anesthesia. * Blood Attestation - Davide Mcintosh DO - 01/02/2022 9:54 AM EDT Blood Attestation ATTESTATION OF INFORMED CONSENT FOR BLOOD The transfusion of blood and/or blood components were discussed with the patient and/or legal sales representative adding machines. The risks, benefits and alternatives were reviewed. Questions regarding blood transfusions were answered. The patient /or the patient s legal sales representative adding machines agree with the plan for transfusion of blood and/or blood components. * Care Plan Note - Araseli Diego RN - 01/01/2022 10:34 AM EDT Problem: Routine Care: Goal: Patient care will be managed and maintained throughout hospital stay per unit specific routine care procedure Outcome: Progressing Note: Hourly rounding performed. Problem: Impaired Mobility: Goal: Ability to tolerate increased activity will improve and be maintained Outcome: Progressing Note: Angelo scale interventions in place. Problem: Activity Intolerance: Goal: Demonstrate progressive return to baseline activity level Outcome: Progressing Note: PT/OT ordered . Problem: VTE Prophylaxis: Goal: Will be free of DVT Outcome: Progressing Note: SCDs and Lovenox ordered. Problem: Fluid and Electrolyte Imbalance: Goal: Adequate fluid and electrolyte balance will be achieved and maintained Outcome: Progressing Note: NPO w/ continuous IVF. Problem: Anxiety: Goal: Level of anxiety will decrease Outcome: Progressing Note: Calming techniques used during Pt care. Problem: Acute Pain: Goal: Ability to identify pain intensity on a pain scale and rate it consistently will be achieved and maintained Outcome: Progressing Note: Numeric pain scale interventions in place. Problem: Safety: Goal: Patient will remain free of falls during hospital stay Outcome: Progressing Note: High risk falls interventions in place. Problem: Discharge Planning: Goal: Discharge needs of the adult patient will be met Outcome: Progressing Note: Pending PT/OT eval. * Care Plan Note - Rajwinder Cisneros RN - 01/01/2022 3:43 AM EDT Problem: Routine Care: Goal: Patient care will be managed and maintained throughout hospital stay per unit specific routine care procedure Outcome: Progressing Problem: Impaired Mobility: Goal: Ability to tolerate increased activity will improve and be maintained Outcome: Progressing Note: Needs PT/OT post OR. Problem: Activity Intolerance: Goal: Demonstrate progressive return to baseline activity level Outcome: Progressing Problem: VTE Prophylaxis: Goal: Will be free of DVT Outcome: Progressing Problem: Fluid and Electrolyte Imbalance: Goal: Adequate fluid and electrolyte balance will be achieved and maintained Outcome: Progressing Problem: Anxiety: Goal: Level of anxiety will decrease Outcome: Progressing Problem: Acute Pain: Goal: Ability to identify pain intensity on a pain scale and rate it consistently will be achieved and maintained Outcome: Progressing Problem: Safety: Goal: Patient will remain free of falls during hospital stay Outcome: Progressing Problem: Discharge Planning: Goal: Discharge needs of the adult patient will be met Outcome: Progressing documented in this [id number] Note* Discharge Planning Note - Radha Cox LSW - 01/09/2022 1:37 PM EDT CASE MANAGEMENT/SOCIAL WORK SNF DC NOTE: Pt has been cleared for transfer to SNF on this date Pt will be transferred to [facility] via Yusuf Garcia ([id number]) at 3:30 PM Nursing report may be called to [phone] Support person notified: pt and son at bedside Patient/Family, team aware of above and agreeable. For discharge, please ensure the following is completed: MD to place DC order, reconcile meds, and print narcotics to go with patient to SNF [place] to print Discharge Summary, [place], Summary of Care, Narcotic Scripts, and Signature Page and place in a packet to be given to charter coach driver If transport/discharge needs to be adjusted/cancelled, team (/RN) to cancel transport, update support person, and update receiving facility. CATARINA Torres [phone] [id number] Hospital Discharge instructions* Discharge Instructions* Washington Neely MD - 01/09/2022 1:25 PM EDT Discharge Instructions: Date of admission: 01/01/2022 Date of discharge: 01/09/2022 You are being discharged to SNF Follow up: - Please call to schedule your follow-up appointments - information provided separately. - You will need to follow up with: - Dr. Sher (orthopedic surgeon) in two weeks, please call to make an appointment - Urology referral for urinary retention with indwelling cortes - See below for information regarding contacting your primary care physician or establishing care at [facility] if you do not already have one. Wound Care and Showering/Bathing: - Okay to shower daily -- allow soap and water to run down your incisions. Do not scrub the area. - If you cannot maintain your balance in the shower, then you should not shower. Sponge baths are the best way to maintain hygiene while your are healing. - To sponge bath, wet a washcloth with soapy water and gently wash body with the washcloth. Then use a dry washcloth to wipe off. - No submerging the wound in water or pools until cleared by our office. - If you notice any increased redness swelling or drainage from your wound call our office immediately. - You may ice your injured leg, which is especially useful to minimize swelling. Make sure that theice is not in direct contact with your skin, and that the ice does not leak out of it's bag. Double-bagging ice is an effective technique. - If you begin to experience progressive and rapidly increasing pain that seems out of proportion to what you normally have been experiencing from your baseline pain after surgery/injury, or if your fingers become numb and/or turn blue and cold - you NEED TO CALL US IMMEDIATELY. Alternatively, you may come into the [facility] Emergency Department IMMEDIATELY for an emergent evaluation by the Trauma resident. Activity and Weight Bearing: - Do not put any weight on your right leg. - You have orders from your Orthopedic doctor to NOT use your right leg for any weight bearing. - You will continue these restrictions while you are in Rehab. For Prevention of Blood Clots (DVT Prophylaxis): - You will need to take Lovenox 30mg twice every day for a total of six weeks (until 02/20/22 date). -This is to prevent blood clots from forming in your body. - Please discuss this with your primary care doctor, and with you orthopedic doctor at your follow up appointments. Update your primary care physician or establish care: Please see your primary care physician at the next available appointment for follow up. Please call either on the day of your discharge, or the day after, to make the appointment. If you are followed by a managed care company or if your insurance requires, call your physician for authorization to be seen in a specialty clinic. If you do not have a primary physician please call [phone] for guidance on finding a [facility] provider. If you have questions or concerns , if your condition worsens or you develop new symptoms please call the [email or web address] Line at [phone]. documented in this [id number] History of Present illness Narrative* Radha Cox LSW - 01/09/2022 10:57 AM EDT Pre-cert remains pending for [facility] this date. SKYLAR sent updated clinicals. [id number] initiated in [facility] Transport form on [employer]. SW will continue to follow. Radha Cox [facility] [phone] * Jaja King, PAPER CUTTING MACHINE OPERATOR - 01/08/2022 9:26 AM EDT SOCIAL WORK COVERAGE NOTE Plan: DC to [facility]. Pre-cert pending. Updated therapy notes needed for pre-cert, PT/OT aware. SW to send updated notes to SNF when available. 11:35a Addendum: Updated clinicals sent to [facility]. SNF requires Covid test prior to admission, aware and asked to place order. SW to contact pt's POA/son Terry Tim [phone] once DC confirmed and pre-cert has been obtained. Will continue to follow. YOANNA Manley, CHAMPION OF SUSTAINABLE DESIGN * Maximo Diana, - 01/08/2022 6:55 AM EDT Images from the original note were not included. GENERAL INFORMATION REGULAR NURSING FLOOR - STAFF NOTE Patient seen and examined on 01/08/2022 Patient Name: Toribio Betts Admission Date: 01/01/2022 INTERVAL HISTORY/EVENTS Background: Toribio Betts is a 86 year old [facility] 12/31. She fell and her leg twisted under her. She is on Eliquis. Hospital Course: 12/31/2021: S/p fall, patient was admitted to [facility] 01/01/2022: No acute events overnight 01/02/2022: Underwent intramedullary implant for femoral shaft fx with ortho, patient Hb dropped to 6.5 and was transfused 2 u pRBC 01/03/2022: Patient received 2 u pRBC and fainted during therapy 01/05/2022: s/p 2 units of PRBC overnight 01/06/2022: Patient Hgb dropped to 8.7 from 9.9, asymptomatic. 01/07/2022: Started DVT PPX 24-hour Events: Urinary retention, no voiding 21:00 hrs minimal amount. This AM, patients abdomen abdomen was dis-tended and was unable to urinate, cortes placed. Patient was accepted to SNF Saturating at 94% on RA UOP: 1,325 cc VITALS & INPUT/OUTPUT Vital Signs: Vital sign ranges over the past 24 hours (retrieved 01/08/2022 at 6:55 AM): Tmax (24 hours): 99.1 F (37.3 C) Pulse Av.3 Min: 80 Max: 99 Systolic (24hrs), Av , Min:137 , Max:148 Diastolic (24hrs), Av, Min:43, Max:61 MAP (mmHg) Av.3 mmHg Min: 68 mmHg Max: 81 mmHg Resp Av.5 Min: 16 Max: 18 SpO2 Av.6 % Min: 92 % Max: 94 % 24 Hour Input/Output In: 751.7 (12.6 mL/kg) [P.O.:260; I.V.:491.7 (0.3 mL/kg/hr)] Out: 2024 (34 mL/kg) [Urine:2024 (1.4 mL/kg/hr)] Net: -1273.3 Weight: 59.5 kg PHYSICAL EXAM General: NAD, awake/alert HEENT: NCAT CV: RRR Pulmonary: CTAB, unlabored breathing on RA. Abdomen: soft, dis-tended and non-tender, suprapubic distention and tenderness Musculoskeletal: left leg tender, mild +1 pitting edema bilaterally, motor and sensations intact. Dressing with some saturation. Pitting edema in LE. Neurological: awakes to voice, at baseline. LABORATORY RESULTS (LAST 24 HOURS) CBC/PT/INR WBC RBC Hgb Hct MCV RDW Plt PT aPTT INR 01/08/22 0422 9.2 2.70 8.1 23.1 86 13.7 191 Basic Metabolic Panel Na K Cl CO2 Gap Glu BUN Cr Ca Mg PO4 01/08/22 0422 136 3.8 100 27 13 135 12 0.60 8.2 Arterial Blood Gases None IMAGING RESULTS (PERSONALLY REVIEWED) CXR: None ASSESSMENT & PLAN Diagnosis s/p Fall 12/31: recovering as expected from: - R femoral shaft fractrue - Acute blood loss anemia - Hyponatremia - resolved PMHx: CAD (s/p PCI on plavix), CHF, HLD, HTN, DM, Afib on Eliquis Incidental Findings: None Plan: Neurological: - Continue tylenol 650 mg q4h - Continue Oxycodone 5 mg q4h PRN CV: - Monitor Vitals - Continue home metoprolol, lasix, atorvastatin - Hold Isosorbide for now - Hold Eliquis/plavix - Echo 01/01 with normal LV function and EF 65% Respiratory: - Saturating well on RA - Bronchopulmonary Hygiene - Incentive Spirometer - Supplemental O2 PRN to target SpO2 92%. GI/Diet: - Diet: Regular - Bowel regimen: Colace, Senna, Miralax - Zofran 4 mg q4h PRN for nausea - Continue PPI Renal: - HLIV - Measure I&O - Daily BMP, Mg, Phos. Replace Mg today (Maintain K >4, Phos >3, Mg >2) - Cortes placed for retention ID: - No indication for antibiotics at this time. Heme: - Patient was transfused 2 uPRBC for low post-op Hb 01/04/22. H/H stable. Will continue to hold eliquis for now. - Daily CBC Endocrine: - SSI, unclear if on DM meds at home MSK: - Progressive mobility protocol - PT/OT - NWB RLE PPx: - VTE - SCDs only. Continue lovenox 30 BID. Check antiXA 01/08 at 13h00. - Stress ulcer - Continue home PPI Dispo: - Medically cleared for discharge to SNF, accepted to [facility]. Cortes replaced for recurrent urinary retention. Okay to resume Eliquis on 01/10 Follow up: - Ortho (Dr. Sher) 2 weeks -follow up with pcp as well - Urology for cortes removal SCRIBE ATTESTATION 01/08/2022, 6:55 AM. This note is prepared by Daysi Marshall acting as Scribe for Diana Marsh DO. All medical record entries made by the Scribe were at my direction and personally dictated by me. Ed reviewed the record and confirm that the note above accurately reflects all work, treatment, procedures, and medical decision making performed by me, Medically clear for dc. Cortes replaced for recurrent urinary retention. Accepted to snf but awaiting precert. DIANA MARSH DO Surgical critical care / trauma / emergency general surgery Personal pager: [phone] Trauma resident pager: [phone] * Shakira Johnson RN - 01/07/2022 12:28 PM EDT 01/07/22 0750 01/07/22 1221 Neurological / Neuromuscular Neurological / Neuromuscular X X Wakefulness WNL WNL Orientation Disoriented to day;Disoriented to date Disoriented to person;Disoriented to place;Disoriented to day;Disoriented to time;Disoriented to date;Forgetful Attention Short attention, frequent stimulation (5-10 sec) Responds briefly by speaking or following commands Motor RT Upper Extremity 3 3 Motor RT Lower Extremity 3 3 Sensory Right Lower Extremity WNL WNL Sensory Left Lower Extremity WNL WNL Neuro (Other) A&Ox2, follows commands, denies n/t change in neuro status from morning assessment, A&Ox0, not following commands Level of Consciousness -- Disoriented to person;Disoriented to place;Disoriented to time;Confused [place] Coma Scale (Adult) Eye Opening 4 3 Best Verbal Response 4 3 Best Motor Response 6 5 GCS Score 14 11 Pupils Right Pupil Size (mm) / Shape -- 3;Round Right Pupil Reaction -- Brisk Left Pupil Size (mm) / Shape -- 3;Round Left Pupil Reaction -- Brisk 1221: Change in neurological status. Trauma paged and resident came to floor for assessment. No neworders at this time. 1239: RN at bedside at this time for assessment, patient now oriented to self, place, and reason for hospitalization. Patient resting comfortably in bed. Trauma MDs made aware of improvement in neurological status. No new orders. * Rebeca Mendoza LSW - 01/07/2022 12:00 PM EDT Covering SW Note: SW continuing to follow for DC to SNF. Pt accepted to [facility] [place]. SW sent updated clinicals to admissions and asked for pre-cert to be started. SW attempted to update pt's son, Terry. No answer and VM. SW will continue to follow. Rebeca Mendoza [facility] Care Coordination Department * Washington Neely MD - 01/07/2022 8:22 AM EDT Images from the original note were not included. GENERAL INFORMATION TRAUMA STAFF NOTE Patient Name: Toribio Betts Patient seen and examined on 01/07/2022 INTERVAL HISTORY/EVENTS Background: Toribio Betts is a 86 year old female brought in by EMS as a transfer from [facility] following fall from standing on 12/31. She fell and her leg twisted under her. She is on Eliquis. Hospital Course: 12/31/2021: S/p fall, patient was admitted to [facility] 01/01/2022: No acute events overnight 01/02/2022: Underwent intramedullary implant for femoral shaft fx with ortho, patient Hb dropped to 6.5 and was transfused 2 u pRBC 01/03/2022: Patient received 2 u pRBC and fainted during therapy 01/05/2022: s/p 2 units of PRBC overnight 24 Hour Events: H/H stable 8.3 from 8.7. Asymptomatic. Will try to wean her off O2. Started DVT prophylaxis. Still complaining of some constipation. Saturating at 98% on 3L NC lactated ringers 50 mL/hr at 01/06/22 1524 Urine output: 750 cc PHYSICAL EXAM BP 150/60 (BP Location: left arm) Pulse 95 Temp 98 F (36.7 C) (Oral) Resp 18 Ht 5' 1 (1.549 m) Wt 131 lb 3 oz (59.5 kg) SpO2 96% BMI 24.79 kg/m General: NAD, awake/alert HEENT: NCAT CV: RRR Pulmonary: CTAB, unlabored breathing on 3 lt NC. Abdomen: soft, non-distended and non-tender Musculoskeletal: left leg tender, mild +1 pitting edema bilaterally, motor and sensations intact. Dressing with some saturation. Pitting edema in LE. Neurological: awakes to voice, at baseline. LABORATORY RESULTS (LAST 24 HOURS) CBC/PT/INR WBC RBC Hgb Hct MCV RDW Plt PT aPTT INR 01/07/22 0123 6.7 2.72 8.3 23.5 86 14.1 114 Basic Metabolic Panel Na K Cl CO2 Gap Glu BUN Cr Ca Mg PO4 01/07/22 0123 135 3.9 100 27 12 134 13 0.56 8.0 IMAGING RESULTS (PERSONALLY REVIEWED) CXR: No new imaging today ASSESSMENT & PLAN Diagnosis s/p Fall 12/31: recovering as expected from: - R femoral shaft fractrue - Acute blood loss anemia - Hyponatremia - resolved PMHx: CAD (s/p PCI on plavix), CHF, HLD, HTN, DM, Afib on Eliquis Incidental Findings: None Plan: Neurological: - Continue tylenol 650 mg q4h - Continue Oxycodone 5 mg q4h PRN CV: - Monitor Vitals - Continue home metoprolol, lasix, atorvastatin - Hold Isosorbide for now - Hold Eliquis/plavix - Echo 01/01 with normal LV function and EF 65% Respiratory: - Saturating well on persistent O2 depe 3L NC, CXR today givenndence. - Bronchopulmonary Hygiene - Incentive Spirometer - Supplemental O2 PRN to target SpO2 92%. GI/Diet: - Diet: Regular - Bowel regimen: Colace, Senna, Miralax - Zofran 4 mg q4h PRN for nausea - Continue PPI Renal: - HLIV - Discontinue cortes - Measure I&O - Daily BMP, Mg, Phos. Replace Mg today (Maintain K >4, Phos >3, Mg >2) ID: - No indication for antibiotics at this time. Heme: - Patient was transfused 2 uPRBC for low post-op Hb 01/04/22. H/H stable. Will continue to hold eliquis for now. - Daily CBC Endocrine: - SSI, unclear if on DM meds at home MSK: - Progressive mobility protocol - PT/OT - NWB RLE PPx: - VTE - SCDs only. Restart lovenox 30 BID. Check antiXA 01/08 at 13h00. - Stress ulcer - Continue home PPI Dispo: - Medically cleared for discharge Follow up: - Ortho (Dr. Sher) 2 weeks -follow up with pcp as well No need for f/u with us unless needed. Please contact 24/02 with questions and concerns related to the patient. (Pager: [phone]) Plan discussed with Dr. Marsh. Washington Neely MD General Surgery Trauma Associated attestation - Diana Marsh DO - 01/07/2022 6:27 PM EDT Images from the original note were not included. Teaching Physician Note: I saw and evaluated the patient. I reviewed the resident's documentation and discussed the patient with the resident. I agree with the resident's medical decision making as documented in the resident's note. Brief episode of ams resolved. No further concerns. DIANA MARSH DO Critical care / Trauma / Emergency general surgery My pager: [phone] Trauma resident: [phone] ACS resident: [phone] (admitted) / -[phone] (new pts) ICU resident: [phone] (ticu) / -[phone] (sicu) * Silviano Bernal MD - 01/06/2022 7:22 AM EDT Images from the original note were not included. GENERAL INFORMATION TRAUMA STAFF NOTE Patient Name: Toribio Betts Patient seen and examined on 01/06/2022 INTERVAL HISTORY/EVENTS Background: Toribio Betts is a 86 year old female brought in by EMS as a transfer from [place] following fall from standing on 12/31. She fell and her leg twisted under her. She is on Eliquis. Hospital Course: 12/31/2021: S/p fall, patient was admitted to [facility] 01/01/2022: No acute events overnight 01/02/2022: POD 1, patient Hb dropped to 6.5 and was transfused 2 u pRBC 01/03/2022: Patient received 2 u pRBC and fainted during therapy 01/05/2022: s/p 2 units of PRBC overnight 24 Hour Events: New drop in Hgb this AM 8.7 from 9.9. Asymptomatic. No lightheadedness. Will continue to monitor. Will continue to hold DVT prophylaxis. Saturating at 98% on 3L NC lactated ringers Urine output: 750 cc PHYSICAL EXAM BP 144/51 (BP Location: left arm) Pulse 77 Temp 98.2 F (36.8 C) (Oral) Resp 18 Ht 5' 1 (1.549 m) Wt 131 lb 3 oz (59.5 kg) SpO2 100% BMI 24.79 kg/m General: NAD, awake/alert HEENT: NCAT CV: RRR Pulmonary: CTAB Abdomen: soft, non-distended and non-tender Musculoskeletal: left leg tender, mild +1 pitting edema bilaterally, motor and sensations intact. Neurological: awakes to voice, at baseline. LABORATORY RESULTS (LAST 24 HOURS) CBC/PT/INR WBC RBC Hgb Hct MCV RDW Plt PT aPTT INR 01/06/22 0044 9.1 2.91 8.7 24.8 85 13.9 82 01/05/22 1032 11.0 3.22 9.9 28.2 88 13.7 73 Basic Metabolic Panel Na K Cl CO2 Gap Glu BUN Cr Ca Mg PO4 01/06/22 0044 137 3.5 101 28 12 129 18 0.69 7.8 01/05/22 1032 134 3.8 101 24 13 137 24 0.75 7.8 IMAGING RESULTS (PERSONALLY REVIEWED) CXR: No new imaging today ASSESSMENT & PLAN Diagnosis s/p Fall 12/31: recovering as expected from: - R femoral shaft fractrue - Acute blood loss anemia - Hyponatremia PMHx: CAD, CHF, HLD, HTN, DM, Afib on Eliquis Incidental Findings: None Plan: Neurological: - Continue tylenol 650 mg q4h - Continue Oxycodone 5 mg q4h PRN CV: - Monitor Vitals - Continue home metoprolol, lasix, atorvastatin - Hold Isosorbide for now - Hold Eliquis/plavix - Echo 01/01 with normal LV function and EF without significant valve abnormality. Respiratory: - Saturating well on 3L NC - Bronchopulmonary Hygiene - Incentive Spirometer - Supplemental O2 PRN to target SpO2 92%. GI/Diet: - Diet: Regular - Bowel regimen: Colace, Senna - Zofran 4 mg q4h PRN for nausea - Continue PPI Renal: - HLIV - Cortes in place for: Beata-operative - Measure I&O - Daily BMP, Mg, Phos. Replace Mg today (Maintain K >4, Phos >3, Mg >2) ID: - No indication for antibiotics at this time. Heme: - Patient was transfused 2 uPRBC for low post-op Hb yesterday - Daily CBC Endocrine: - SSI, unclear if on DM meds at home MSK: - Progressive mobility protocol - PT/OT - NWB RLE PPx: - VTE - SCDs only. Hold chemoprophylaxis for drop in Hgb - Stress ulcer - No GI ppx indicated Dispo: - Likely to SNF at [facility] Follow up: - Ortho (Dr. Sher) 2 weeks -follow up with pcp as well No need for f/u with us unless needed. Please contact 24/02 with questions and concerns related to the patient. (Pager: [phone]) Plan discussed with Dr. Bernal. Washington Neely MD General Surgery Trauma Teaching Physician Note: I saw and evaluated the patient. I personally obtained the cloud and critical portions of the historyand physical exam. I reviewed the resident's documentation and discussed the patient with the resident and team on rounds. I agree with the medical decision making as documented in this note, which are reflective of the plans we discussed. Trauma Attending: Silviano Bernal MD * Sapna Snyder RN - 01/06/2022 3:30 AM EDT 0300: Patient's R leg dressing has heavy shadowing and hgb decreased from 9.9 to 8.7. Patient VS are WNL and neurologically is at baseline. Chucky MAYERS updated, will continue to monitor. * Silviano Bernal MD - 01/05/2022 7:02 AM EDT Images from the original note were not included. GENERAL INFORMATION TRAUMA STAFF NOTE Patient Name: Toribio Betts Patient seen and examined on 01/05/2022 INTERVAL HISTORY/EVENTS Background: Toribio Betts is a 86 year old female brought in by EMS as a transfer from [facility] following fall from standing on 5/30. She fell and her leg twisted under her. She is on Eliquis. Hospital Course: 12/31/2021: S/p fall, patient was admitted to [facility] 01/01/2022: No acute events overnight 01/02/2022: POD 1, patient Hb dropped to 6.5 and was transfused 2 u pRBC 01/03/2022: Patient received 2 u pRBC and fainted during therapy 01/05/2022: s/p 2 units of PRBC overnight 24 Hour Events: Patient received 2 u pRBC after Hb dropped to 8.6 from 9.8 and fainted during therapy Saturating at 98% on 3L NC lactated ringers lactated ringers 50 mL/hr at 01/03/22 1900 Urine output: 750 cc PHYSICAL EXAM BP 152/67 Pulse 99 Temp 98.4 F (36.9 C) (Axillary) Resp 18 Ht 5' 1 (1.549 m) Wt 131 lb 3oz (59.5 kg) SpO2 100% BMI 24.79 kg/m General: NAD, awake/alert HEENT: NCAT CV: RRR Pulmonary: CTAB Abdomen: soft, non-distended and non-tender Musculoskeletal: left leg tender, mild +1 pitting edema bilaterally, motor and sensations intact. rthigh significantly larger than left thigh Neurological: awakes to voice, at baseline. LABORATORY RESULTS (LAST 24 HOURS) CBC/PT/INR WBC RBC Hgb Hct MCV RDW Plt PT aPTT INR 01/05/22 0150 9.5 2.06 6.2 17.6 86 14.1 77 01/05/22 0057 10.0 2.00 6.0 17.2 86 14.4 85 Basic Metabolic Panel Na K Cl CO2 Gap Glu BUN Cr Ca Mg PO4 01/05/22 0057 131 3.7 98 25 12 154 30 0.96 7.9 IMAGING RESULTS (PERSONALLY REVIEWED) CXR: No new imaging today ASSESSMENT & PLAN Diagnosis s/p Fall 12/31: recovering as expected from: - R femoral shaft fractrue - Acute blood loss anemia - Hyponatremia PMHx: CAD, CHF, HLD, HTN, DM, Afib on Eliquis Incidental Findings: None Plan: Neurological: - Continue tylenol 650 mg q4h - Continue Oxycodone 5 mg q4h PRN CV: - Monitor Vitals - Continue home metoprolol, lasix, atorvastatin - Hold Isosorbide for now - Hold Eliquis/plavix - Echo 01/01 with normal LV function and EF without significant valve abnormality. S/p 2 units overnight - Holding therapeutic anticoagulation Respiratory: - Saturating well on 3L NC - Bronchopulmonary Hygiene - Incentive Spirometer - Supplemental O2 PRN to target SpO2 92%. GI/Diet: - Diet: Regular - Bowel regimen: Colace, Senna - Zofran 4 mg q4h PRN for nausea - Continue PPI Renal: - HLIV - Cortes in place for: Beata-operative - Measure I&O - Daily BMP, Mg, Phos. Replace Mg today (Maintain K >4, Phos >3, Mg >2) ID: - No indication for antibiotics at this time. Heme: - Patient was transfused 2 u pRBC overnight for low post-op Hb - Daily CBC Endocrine: - SSI, unclear if on DM meds at home MSK: - Progressive mobility protocol - PT/OT - NWB RLE PPx: - VTE - SCDs only. Hold chemoprophylaxis for OR in setting of Eliquis use - Stress ulcer - No GI ppx indicated Dispo: - Likely to SNF at [facility] Follow up: - Ortho (Dr. Sher) 2 weeks -follow up with pcp as well No need for f/u with us unless needed. Please contact 24/02 with questions and concerns related to the patient. (Pager: [phone]) Plan discussed with Dr. Bernal. Mila Weeks DO Teaching Physician Note: I saw and evaluated the patient. I personally obtained the cloud and critical portions of the historyand physical exam. I reviewed the resident's documentation and discussed the patient with the resident and team on rounds. I agree with the medical decision making as documented in this note, which are reflective of the plans we discussed. Trauma Attending: Silviano Bernal MD * Sapna Snyder RN - 01/05/2022 2:31 AM EDT 0230: Patient hgb low. First hgb 6.0, redraw 6.2. Trauma paged. * Ariel Echeverria RN - 01/05/2022 1:29 AM EDT 0129: This RN notified by core lab of critical H/H. This RN notified by core lab that results wouldbe on hold until MD is notified and checked if a redraw would be considered. 0146: MD Chucky notified of critical Hemoglobin value of 6.0 and hematocrit of 17.2. MD chucky readback critical result. New orders received to redraw CBC at this time. * Sapna Snyder RN - 01/04/2022 11:32 PM EDT 2330: Patient unable to void post cortes pull and was due to void at 2230. Patient bladder scanned for over 300 ml. Chucky MAYERS notified, straight cath ordered. * Radha Cox LSW - 01/04/2022 3:53 PM EDT [facility] has no beds available. SW met with pt and son Kevin at bedside. Family requesting referrals be sent to [facility]. SW sent referrals this date. Pt will require pre-cert. No weekend DC. SW will continue to follow. Radha Cox [facility] [phone] * Silviano Bernal MD - 01/04/2022 6:57 AM EDT Images from the original note were not included. GENERAL INFORMATION TRAUMA STAFF NOTE Patient Name: Toribio Betts Patient seen and examined on 01/04/2022 INTERVAL HISTORY/EVENTS Background: Toribio Betts is a 86 year old female brought in by EMS as a transfer from [facility] following fall from standing on 12/31. She fell and her leg twisted under her. She is on Eliquis. Hospital Course: 12/31/2021: S/p fall, patient was admitted to [facility] 01/01/2022: No acute events overnight 01/02/2022: POD 1, patient Hb dropped to 6.5 and was transfused 2 u pRBC 01/03/2022: Patient received 2 u pRBC and fainted during therapy 24 Hour Events: Patient received 2 u pRBC after Hb dropped to 8.6 from 9.8 and fainted during therapy Saturating at 98% on 3L NC lactated ringers lactated ringers 50 mL/hr at 01/03/22 1900 Urine output: 750 cc PHYSICAL EXAM BP 117/35 (BP Location: right arm) Comment: RN notified Pulse 84 Temp 98.2 F (36.8 C) (Oral) Resp 16 Ht 5' 1 (1.549 m) Wt 131 lb 3 oz (59.5 kg) SpO2 98% BMI 24.79 kg/m General: NAD, awake/alert HEENT: NCAT CV: RRR Pulmonary: CTAB Abdomen: soft, non-distended and non-tender Musculoskeletal: left leg tender, mild +1 pitting edema bilaterally, motor and sensations intact, dressings in place on right thigh Neurological: GCS 15 LABORATORY RESULTS (LAST 24 HOURS) CBC/PT/INR WBC RBC Hgb Hct MCV RDW Plt PT aPTT INR 01/04/22 0148 12.2 2.84 8.6 24.7 87 14.3 76 01/03/22 1357 11.0 3.21 9.8 27.8 86 14.2 87 Basic Metabolic Panel Na K Cl CO2 Gap Glu BUN Cr Ca Mg PO4 01/04/22 0148 132 4.2 Comment: Hemolysis present 100 22 14 150 28 1.09 8.1 IMAGING RESULTS (PERSONALLY REVIEWED) CXR: No new imaging today ASSESSMENT & PLAN Diagnosis s/p Fall 12/31: recovering as expected from: - R femoral shaft fractrue - Acute blood loss anemia - Hyponatremia PMHx: CAD, CHF, HLD, HTN, DM, Afib on Eliquis Incidental Findings: None Plan: Neurological: - Continue tylenol 650 mg q4h - Continue Oxycodone 2.5/5 mg q4h PRN - Continue dilaudid 02 mg q3h PRN for breakthrough pain CV: - Monitor Vitals - Continue home metoprolol, lasix, atorvastatin - Hold Isosorbide for now - Hold Eliquis/plavix - Echo 01/01 with normal LV function and EF without significant valve abnormality - Holding therapeutic anticoagulation Respiratory: - Saturating well on 3L NC - Bronchopulmonary Hygiene - Incentive Spirometer - Supplemental O2 PRN to target SpO2 92%. GI/Diet: - Diet: Regular - Bowel regimen: Colace, Senna - Zofran 4 mg q4h PRN for nausea - Continue PPI Renal: - HLIV - Cortes in place for: Beata-operative - Measure I&O - Daily BMP, Mg, Phos. Replace Mg today (Maintain K >4, Phos >3, Mg >2) ID: - No indication for antibiotics at this time. Heme: - Patient was transfused 2 u pRBC overnight for low post-op Hb - Daily CBC Endocrine: - SSI, unclear if on DM meds at home MSK: - Progressive mobility protocol - PT/OT - NWB RLE PPx: - VTE - SCDs only. Hold chemoprophylaxis for OR in setting of Eliquis use - Stress ulcer - No GI ppx indicated Dispo: - Likely to SNF at [facility] Follow up: - Ortho (Dr. Sher) 2 weeks -follow up with pcp as well No need for f/u with us unless needed. Please contact 24/02 with questions and concerns related to the patient. (Pager: [phone]) SCRIBE ATTESTATION 01/04/2022, 6:57 AM. This note is prepared by Daysi Marshall acting as Scribe for Silviano Bernal MD All medical record entries made by the Scribe were at my direction and personally dictated by me. Ed reviewed the record and confirm that the note above accurately reflects all work, treatment, procedures, and medical decision making performed by MD Silviano Agee MD * Elvira Love MD - 01/04/2022 6:49 AM EDT Images from the original note were not included. ORTHOPAEDIC SURGERY PROGRESS NOTE ASSESSMENT & PLAN: 86 year old year old female who is s/p CMN with Dr. Sher on 01/02/22. - Pain control with PO and IV for Breakthrough - Antibiotics: Ancef periop - Encouraged IS - Weight bearing status: WBAT RLE - Aquacel for 7 dys - Anticoagulation: Per trauma, recommend 6 weeks - Dispo: Per trauma surgery, F/U with Dr. Sher in 2 weeks -Orthopaedic surgery will follow peripherally while in house, but will not routinely see the patient to assess for acute pathology. Please feel welcome to page at any time with questions or concerns for repeat evaluation / assistance with management. SUBJECTIVE: Somnolent this AM OBJECTIVE: Vitals: 01/04/22 0501 BP: 117/35 Pulse: 84 Resp: 16 Temp: 98.2 F (36.8 C) SpO2: 98% Intake/Output Summary (Last 24 hours) at 01/04/2022 0649 Last data filed at 01/04/2022 0511 Gross per 24 hour Intake 295.83 ml Output 900 ml Net -604.17 ml General: Alert and oriented, resting in bed, in no acute distress Right Lower Extremity: Dressing C/D/I / Gsc, TA, EHL SILT LFCN, PFCN, Obturator, Saphenous, Sural, DP, SP, Plantar foot warm, well-perfused Compartments soft and compressible (all compartments) CBC/PT/INR WBC RBC Hgb Hct MCV RDW Plt PT aPTT INR 01/04/22 0148 12.2 2.84 8.6 24.7 87 14.3 76 01/03/22 1357 11.0 3.21 9.8 27.8 86 14.2 87 01/03/22 0312 11.5 2.18 6.5 19.6 90 13.4 104 01/03/22221 11.1 2.16 6.7 19.3 89 13.1 108 WBC/Diff None Basic Metabolic Panel Na K Cl CO2 Gap Glu BUN Cr Ca Mg PO4 01/04/22 0148 132 4.2 Comment: Hemolysis present 100 22 14 150 28 1.09 8.1 01/03/22221 1.7 01/03/22221 3.8 01/03/22221 133 4.0 101 22 14 138 20 1.05 8.2 Elvira (Ailyn) MD Ivan Orthopaedic Surgery, PGY-9 * Radha Cox LSW - 01/03/2022 11:45 AM EDT SW aware of pottery decorator screen yield for pt has ADs, paper copy not with pt. SW met with pt at bedside, pt confirms having POA and LW. Per pt, POA is: sina Tim [phone] Pt/family educated to bring a copy of documents in to be placed on file in medical record if able, expressed understanding. SW aware that patient meets criteria for SNF. Met with pt and sons Terry and Gene on unit to discussdispo. Patient open and agreeable to SNF placement. CM/SW provided pt and son the quality and resource use measure data from available post-acute (PAC)providers, that best align with the patient's treatment goals and preferences from the medicare.govcompare site for SNF. 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 For SNF: RN/MD to complete [employer]. Signature page placed on patient's chart for MD signature. Pt will require a pre-cert/LOC. Referral sent to [facility] per family request. SW will continue to follow. CATARINA Torres [phone] * Eun Alicea RN - 01/03/2022 10:03 AM EDT 01/03/22 0950 01/03/22 0952 01/03/22 0953 Vital Signs Heart Rate 88 -- -- BP 87/32 89/27 97/30 MAP (mmHg) 45 mmHg 41 mmHg 46 mmHg BP Position Semi-Fowlers Semi-Fowlers Semi-Fowlers 01/03/22 0955 Vital Signs Heart Rate 82 BP 94/33 MAP (mmHg) 47 mmHg BP Position Lying RN called to room by PT. Patient had episode of LOC while sitting on side of bed with Right upward eye drift. Patient returned to semi-fowlers position and vitals obtained above. Patient A&Ox3 with baseline word-finding. Dr. Ta notified-RN to obtain EKG. EKG obtained. Dr. Ta at bedside. * Elvira Love MD - 01/03/2022 7:29 AM EDT Images from the original note were not included. ORTHOPAEDIC SURGERY PROGRESS NOTE ASSESSMENT & PLAN: 86 year old year old female who is s/p CMN with Dr. Sher on 01/02/22. - Pain control with PO and IV for Breakthrough - Antibiotics: Ancef periop - Encouraged IS - Weight bearing status: WBAT RLE - Aquacel for 7 dys - Anticoagulation: Per trauma, recommend 6 weeks - Dispo: Per trauma surgery SUBJECTIVE: Currently receiving 1 pRBC, endorses some lightheadedness and dizziness. Timid and anxious during evaluation this AM OBJECTIVE: Vitals: 01/03/22 0426 BP: 111/31 Pulse: 81 Resp: 16 Temp: 98.4 F (36.9 C) SpO2: 94% Intake/Output Summary (Last 24 hours) at 01/03/2022 0729 Last data filed at 01/03/2022 0654 Gross per 24 hour Intake 2302.5 ml Output 850 ml Net 1452.5 ml General: Alert and oriented, resting in bed, in no acute distress Right Lower Extremity: Dressing C/D/I 5/5 Gsc, TA, EHL SILT LFCN, PFCN, Obturator, Saphenous, Sural, DP, SP, Plantar 2+ DP, PT pulses; foot warm, well-perfused Compartments soft and compressible (all compartments) CBC/PT/INR WBC RBC Hgb Hct MCV RDW Plt PT aPTT INR 01/03/22 0312 11.5 2.18 6.5 19.6 90 13.4 104 01/03/22 022 11.1 2.16 6.7 19.3 89 13.1 108 01/01/22 0618 28 01/01/2218 1.27 01/01/22617 9.6 3.59 11.1 32.5 91 13.3 133 WBC/Diff None Basic Metabolic Panel Na K Cl CO2 Gap Glu BUN Cr Ca Mg PO4 01/03/22221 1.7 01/03/22221 3.8 01/03/22221 133 4.0 101 22 14 138 20 1.05 8.2 01/01/22617 1.9 01/01/22617 3.6 01/01/22617 138 3.9 102 26 14 160 13 0.67 8.8 Elvira Love MD (Lola) Orthopaedic Surgery, PGY-3 * Megan Ta MD - 01/03/2022 7:02 AM EDT Images from the original note were not included. GENERAL INFORMATION TRAUMA STAFF NOTE Patient Name: Toribio Betts Patient seen and examined on 01/03/2022 INTERVAL HISTORY/EVENTS Background: Toribio Betts is a 86 year old female brought in by EMS as a transfer from [facility] following fall from standing. She fell and her leg twisted under her. She is on Eliquis. Hospital Course: 12/31/2021: S/p fall, patient was admitted to [facility] 01/01/2022: No acute events overnight 01/02/2022: POD 1, patient Hb dropped to 6.5 and was transfused 2 u pRBC 24 Hour Events: Hb dropped to 6.5, received 2 u pRBC, patient is also slight oliguric. Saturating at 94% on 3L NC lactated ringers lactated ringers Stopped (01/03/22 0405) Urine output: 750 cc Blood: 100 cc PHYSICAL EXAM BP 111/31 Pulse 81 Temp 98.4 F (36.9 C) (Oral) Resp 16 Ht 5' 1 (1.549 m) Wt 131 lb 3 oz (59.5 kg) SpO2 94% BMI 24.79 kg/m General: NAD, awake/alert HEENT: NCAT CV: mild tachycardia Pulmonary: nonlabored Abdomen: soft, non-distended and non-tender Musculoskeletal: left leg tender Neurological: GCS 15 LABORATORY RESULTS (LAST 24 HOURS) CBC/PT/INR WBC RBC Hgb Hct MCV RDW Plt PT aPTT INR 01/03/22 0312 11.5 2.18 6.5 19.6 90 13.4 104 01/03/22221 11.1 2.16 6.7 19.3 89 13.1 108 Basic Metabolic Panel Na K Cl CO2 Gap Glu BUN Cr Ca Mg PO4 01/03/22221 1.7 01/03/22221 3.8 01/03/22221 133 4.0 101 22 14 138 20 1.05 8.2 IMAGING RESULTS (PERSONALLY REVIEWED) CXR: No new imaging today ASSESSMENT & PLAN Diagnosis s/p Fall 12/31: - R femoral shaft fractrue - Acute blood loss anemia - Hyponatremia PMHx: CAD, CHF, HLD, HTN, DM, Afib on Eliquis Incidental Findings: None Plan: Neurological: - Continue tylenol 650 mg q4h - Continue Oxycodone 2.5/5 mg q4h PRN - Continue dilaudid 02 mg q3h PRN for breakthrough pain CV: - Monitor Vitals - Continue home metoprolol, lasix, atorvastatin - Hold Isosorbide for now - Hold Eliquis/plavix for procedure - Echo 01/01 with normal LV function and EF without significant valve abnormality Respiratory: - Saturating well on 3L NC - Bronchopulmonary Hygiene - Incentive Spirometer - Supplemental O2 PRN to target SpO2 92%. GI/Diet: - Diet: - Bowel regimen: Colace, Senna - Zofran 4 mg q4h PRN for nausea - Continue PPI Renal: - mIVF - Cortes in place for: Beata-operative - Measure I&O - Daily BMP, Mg, Phos. Replace Mg today (Maintain K >4, Phos >3, Mg >2) ID: - No indication for antibiotics at this time. Heme: - Patient was transfused 2 u pRBC overnight for low post-op Hb - Daily CBC Endocrine: - SSI, unclear if on DM meds at home MSK: - Progressive mobility protocol - PT/OT - NWB RLE PPx: - VTE - SCDs only. Hold chemoprophylaxis for OR in setting of Eliquis use - Stress ulcer - No GI ppx indicated Dispo: - Remain on RNF Please contact 24/02 with questions and concerns related to the patient. (Pager: [phone]) SCRIBE ATTESTATION 01/03/2022, 7:02 AM. This note is prepared by Daysi Marshall acting as Scribe for Megan Ta MD. All medical record entries made by the Scribe were at my direction and personally dictated by me. Ed reviewed the record and confirm that the note above accurately reflects all work, treatment, procedures, and medical decision making performed by Megan Ta MD. * Desi Castelan, RN - 01/03/2022 6:58 AM EDT Trauma resident research associate quality control qc notified of low urine output. Also notified that pt lost IV access during blood administration, attempting to get IV access at this time. Will continue to monitor. * Antonio Meléndez RN - 01/03/2022 2:[address] Flores notified of critical Hemoglobin and Hematocrit values of 6.[address] Flores read back critical result. New orders received. 0340 - Dr. Flores notified of critical Hemoglobin and hematrocrit values of 6.[address] Flores read back critical result. New orders received. * Radha Cox LSW - 01/02/2022 9:44 AM EDT SW aware of pottery decorator screen yield for pt has ADs, paper copy not with pt. Pt to OR this date. SW will follow up as able. Radha Cox [facility] [phone] * Elvira Love MD - 01/02/2022 7:50 AM EDT Images from the original note were not included. ORTHOPAEDIC SURGERY PROGRESS NOTE A/P: 86 year old female with mGLF found to have R subtroch femur fracture. Closed, NVI. Patient andfamily refusing bucks skin traction and placed in pillow splint for comfort. - C/P for CMN R femur with Dr. Sher today 01/02/22 - WB: NWB RLE, strict bedrest - Abx: none indicated - Diet: NPO - DVT: Per Trauma team management criteria/guidelines - Please obtain all preop labs (CBC,BMP,EKG, CXR, Coags, Type and Screen) - Cortes: placed, per trauma protocol - Pain: per trauma SUBJECTIVE: No acute events overnight OBJECTIVE: Vitals: 01/02/22 0606 BP: 139/50 Pulse: 58 Resp: 16 Temp: 97.9 F (36.6 C) SpO2: 96% Intake/Output Summary (Last 24 hours) at 01/02/2022 0750 Last data filed at 01/02/2022 0700 Gross per 24 hour Intake 1680 ml Output 500 ml Net 1180 ml General: Alert and oriented, resting in bed, in no acute distress Right lower extremity: - Skin intact - Incredibly tender to palpation over R hip - 5/5 EHL/DF/PF. - Sensation intact to light touch in sural, saphenous, superficial/deep peroneal, tibial nerve distributions. - 2+ DP pulse, < 2 seconds capillary refill. CBC/PT/INR WBC RBC Hgb Hct MCV RDW Plt PT aPTT INR 01/01/22617 28 01/01/2218 1.27 01/01/22617 9.6 3.59 11.1 32.5 91 13.3 133 WBC/Diff None Basic Metabolic Panel Na K Cl CO2 Gap Glu BUN Cr Ca Mg PO4 01/01/22617 1.9 01/01/22617 3.6 01/01/22617 138 3.9 102 26 14 160 13 0.67 8.8 Elvira Love MD ([facility]) Orthopaedic Surgery, PGY-3 * Megan Ta MD - 01/02/2022 7:35 AM EDT GENERAL INFORMATION TRAUMA STAFF NOTE Patient Name: Toribio Betts Patient seen and examined on 01/02/2022 INTERVAL HISTORY/EVENTS Background: Toribio Betts is a 86 year old female [facility]. She fell and her leg twisted under her. She is on Eliquis. Hospital Course: 12/31/2021: S/p fall, patient was admitted to [facility] 01/01/2022: No acute events overnight 24 Hour Events: No acute events overnight, HDS, afebrile. Saturating at 96% on 1L NC lactated ringers 50 mL/hr at 01/01/22 0325 Urine output: 500 cc PHYSICAL EXAM BP 139/50 (BP Location: left arm) Pulse 58 Temp 97.9 F (36.6 C) (Oral) Resp 16 Ht 5' 1 (1.549 m) Wt 131 lb 3 oz (59.5 kg) SpO2 96% BMI 24.79 kg/m General: NAD, awake/alert HEENT: NCAT CV: regular rate Pulmonary: nonlabored Abdomen: soft, non-distended and non-tender Musculoskeletal: left leg tender Neurological: GCS 15 LABORATORY RESULTS (LAST 24 HOURS) CBC/PT/INR None Basic Metabolic Panel None IMAGING RESULTS (PERSONALLY REVIEWED) CXR: No CXR this AM ASSESSMENT & PLAN Diagnosis s/p Fall 12/31: - R femoral shaft fractrue PMHx: CAD, CHF, HLD, HTN, DM, Afib on Eliquis Incidental Findings: None Plan: Neurological: - Continue tylenol 650 mg q4h - Continue Oxycodone 2.5/5 mg q4h PRN - Continue dilaudid 02 mg q3h PRN for breakthrough pain CV: - Monitor Vitals - Continue home metoprolol, lasix, atorvastatin - Hold Isosorbide for now - Hold Eliquis/plavix for procedure - Echo 01/01 with normal LV function and EF without significant valve abnormality Respiratory: - Saturating well on 2L NC - Bronchopulmonary Hygiene - Incentive Spirometer - Supplemental O2 PRN to target SpO2 92%. GI/Diet: - Diet: Strict NPO for OR todau - Bowel regimen: Colace, Senna - Zofran 4 mg q4h PRN for nausea - Continue PPI Renal: - mIVF - Cortes in place for: Beata-operative - Measure I&O - Daily BMP, Mg, Phos. Replace as needed (Maintain K >4, Phos >3, Mg >2) ID: - No indication for antibiotics at this time. Heme: - No indication for transfusion at this time. - Daily CBC Endocrine: - SSI, unclear if on DM meds at home MSK: - Progressive mobility protocol - PT/OT - NWB RLE PPx: - VTE - SCDs only. Hold chemoprophylaxis for OR in setting of Eliquis use - Stress ulcer - No GI ppx indicated Dispo: - OR today with Ortho for femoral fx repair Please contact 24/02 with questions and concerns related to the patient. (Pager: [phone]) SCRIBE ATTESTATION 01/02/2022, 7:35 AM. This note is prepared by Daysi Marshall acting as Scribe for Megan Ta MD. All medical record entries made by the Scribe were at my direction and personally dictated by me. Ed reviewed the record and confirm that the note above accurately reflects all work, treatment, procedures, and medical decision making performed by Megan Ta MD. * Desi Castelan RN - 01/01/2022 9:39 PM EDT Pt refusing turns at this time, educated on importance of q2h turns to prevent pressure injuries, pt verbalized understanding but states her hip hurts too much when moving to turn right now, says maybe later. Will continue to encourage throughout the night. * Radha Cox LSW - 01/01/2022 4:00 PM EDT SW aware of pottery decorator screen yield for pt has ADs, paper copy not with pt. SW will follow up as able. Radha Cox [facility] [phone] * Megan Ta MD - 01/01/2022 7:01 AM EDT Images from the original note were not included. GENERAL INFORMATION TRAUMA STAFF NOTE Patient Name: Toribio Betts Patient seen and examined on 01/01/2022 INTERVAL HISTORY/EVENTS Background: Toribio Betts is a 86 year old female brought in by EMS as a transfer from [facility] following fall from standing. She fell and her leg twisted under her. She is on [id number]. Hospital Course: 12/31/2021: S/p fall, patient was admitted to [facility] 24 Hour Events: Patient was admitted to [facility] Saturating at 99% on 2L NC lactated ringers 50 mL/hr at 01/01/22 0325 Urine output: 850 cc PHYSICAL EXAM BP 138/60 (BP Location: left arm) Pulse 76 Temp 98.3 F (36.8 C) (Oral) Resp 16 Ht 5' 1 (1.549 m) Wt 131 lb 3 oz (59.5 kg) SpO2 99% BMI 24.79 kg/m General: NAD, awake/alert HEENT: NCAT CV: regular rate Pulmonary: nonlabored Abdomen: soft, non-distended and non-tender Musculoskeletal: left leg tender Neurological: GCS 15 LABORATORY RESULTS (LAST 24 HOURS) CBC/PT/INR WBC RBC Hgb Hct MCV RDW Plt PT aPTT INR 01/01/22 0618 9.6 3.59 11.1 32.5 91 13.3 133 Basic Metabolic Panel None IMAGING RESULTS (PERSONALLY REVIEWED) CXR: No CXR this AM ASSESSMENT & PLAN Diagnosis s/p Fall 12/31: - R femoral shaft fractrue PMHx: CAD, CHF, HLD, HTN, DM, Afib on Eliquis Incidental Findings: None Plan: Neurological: - Continue tylenol 650 mg q4h - Continue Oxycodone 2.5/5 mg q4h PRN - Continue dilaudid 02 mg q3h PRN for breakthrough pain CV: - Monitor Vitals - Continue home metoprolol, lasix, atorvastatin - Hold Isosorbide for now - Hold Eliquis/plavix for procedure - Echo 01/01 with normal LV function and EF without significant valve abnormality Respiratory: - Saturating well on 2L NC - Bronchopulmonary Hygiene - Incentive Spirometer - Supplemental O2 PRN to target SpO2 92%. GI/Diet: - Diet: Strict NPO - Bowel regimen: Colace, Senna - Zofran 4 mg q4h PRN for nausea - Continue PPI Renal: - mIVF - Cortes in place for: Beata-operative - Measure I&O - Daily BMP, Mg, Phos. Replace as needed (Maintain K >4, Phos >3, Mg >2) ID: - No indication for antibiotics at this time. Heme: - No indication for transfusion at this time. - Daily CBC Endocrine: - SSI, unclear if on DM meds at home MSK: - Progressive mobility protocol - PT/OT - NWB RLE - Plan for OR tomorrow with Ortho, pending ECHO PPx: - VTE - SCDs only. Hold chemoprophylaxis for OR in setting of Eliquis use - Stress ulcer - No GI ppx indicated Dispo: - OKAY FOR OR WITH ORTHO FROM TRAUMA STANDPOINT Please contact 24/02 with questions and concerns related to the patient. (Pager: [phone]) SCRIBE ATTESTATION 01/01/2022, 7:01 AM. This note is prepared by Daysi Marshall acting as Scribe for Megan Ta MD. All medical record entries made by the Scribe were at my direction and personally dictated by me. Ed reviewed the record and confirm that the note above accurately reflects all work, treatment, procedures, and medical decision making performed by Megan Ta MD. documented in this [id number] Note* Care Plan Note - Chai Garcia RN - 01/09/2022 9:27 AM EDT Problem: Routine Care: Goal: Patient care will be managed and maintained throughout hospital stay per unit specific routine care procedure Outcome: Progressing Problem: Impaired Mobility: Goal: Ability to tolerate increased activity will improve and be maintained Outcome: Progressing Problem: Anxiety: Goal: Level of anxiety will decrease Outcome: Progressing Problem: Safety: Goal: Patient will remain free of falls during hospital stay Outcome: Progressing Problem: Discharge Planning: Goal: Discharge needs of the adult patient will be met Outcome: Progressing Pt pain controlled, confused at times about date, tolerating diet, SNF placement [id number] NotePHYSICAL THERAPY PROGRESS SUMMARY Patient seen from 924 to 954 on 7B unit for 30 minute co-treatment w/ E.Hriczo OT for skilled need of 2 therapist for pt safety and mobility . SUBJECTIVE: Patient Subjective/Goals: I can't do this. OBJECTIVE: Appearance: pt in bed upon entering room w/ son at bedside, cortes intact Behavior: alert,cooperative, anxious, screams out w/ mobility, receptive to vc's, requires encouragement and education on importance of mobility Pain: Site/Location: R hip; Pain Scale: 8/10 Pain Relief Interventions Implemented: Ice, Positioning and Relaxation Training therex-AP 1x10,QS (poor RLE), assisted HS RLE 1x4 +muscle guarding w/ HS R heel cord stretch 2x/30 second hold Mobility NA Dep Max Mod Min CG CS DS GA I Comment Supine to sit x2 Transfers x2 Stand pivot bed to chair WBAT RLE Sit to/from stand x2 From EOB to rolling walker Walking on level surface x Unable to progress ambulation d/t pain, anxiety. Stairs x Not functionally appropriate Stand to sit x2 For eccentric control Sit to Supine x Functional Endurance: improving BP post [id number]=568/44 (BP checked d/t pt reports feeling of passing out) Sitting Balance: Static:fair Dynamic:fair *Pt tends to lean L to offload R hip Standing Balance: Static: poor w/ rolling walker Dynamic:poor w/ rolling walker *Pt stands x 2 minutes w/ use of rolling walker. Frequent cues for upright posture and to increase UE weight bearing on walker. Pre-gait= manual assist lateral weight shifts *Unable to transfer w/ walker to chair or advance gait d/t pt reports feeling of passing out. Pt returned to EOB w/ BP checked and WFL's (see under functional mobility). Pt symptoms improved w/ pt tolerating stand pivot transfer to bedside chair. Patient/Family Education: Patient instructed in calling for nursing assist for any additional needs. Pt advised to sit in chair for minimum 1 hour to prevent ill effects of continuous bedrest. Pt aware to call for nursing staff when ready to return to bed. Patient up in chair with call light in reach. ???Chair alarm intact. Dewayne sling in chair for return to bed by staff if needed DME: With Patients permission ordered no equipment via [employer] Order. If any questions contact [facility] DME Provider at [phone]. 4 Clicks Basic Mobility PT 01/08/2022 Difficulty turning over in bed 2 Difficulty sitting down and standing up from a chair with arms 2 Difficulty moving from lying on back to sitting on the side of the bed 2 Help from another person moving to and from bed to a chair 2 Help from another person to walk in hospital room 1 Help from another person climbing 3-5 steps with a railing 1 PT 6 Clicks Score 10 6 Click Score Guidelines: 1 - Total = Requires total assistance, or cannot do at all. 2 - A lot = Requires a lot of help (maximun to moderate assistance) Can use assistive devices. 3 - A little = Requires a little help (supervision, minimal assistance) Can use assistive devices. 4 - None = Does not require any help and does the activity independently. Can use assistive devices. ??? ASSESSMENT: Pt is functionally limited by pain,decrease strength and stamina. Pt will need further inpt therapies in a skilled setting when medically ready. GOALS (to be achieved by hospital discharge): all goals ongoing, progressing as expected 1. Patient to achieve acceptable level of pain control to participate in Therapy sessions. 2. Patient to improve bed mobility to???mod A 3. Patient to demonstrate sit to stand transfer to/from multi-level surface???mod A with RW??? 4. Patient to ambulate???10 feet with RW and mod A??? 5. Patient to???transfer EOB <> bedside chair with RW and mod A? 6. Patient to demonstrate appropriate stamina and balance to attain above functional goals without LOB or SOB.? PLAN: Will follow established Plan of Care Patricia Matta LORIRE Beeper #[phone] NA = Not Assessed, I = Independent, GA = Modified Independent, Sup = Supervised, Set up = Physical Assistance for Set-up Only, Min = Minimal Assistance, Mod = Moderate Assistance, Max = Maximal assistance; Dep = Dependent; AROM = Active Range of Motion; PROM = Passive Range of Motion; MMT = Manual Muscle TestThe [email or web address] [id number] NoteOCCUPATIONAL THERAPY PROGRESS SUMMARY Patient seen from 925 to 955 on 7C unit for 30 minute treatment. Co-tx with APPLICATION PERFORMANCE ENGINEER for skilled assist with progression of functional mobility and safety. SUBJECTIVE: Patient Subjective/Goals: Is Kevin here? Kevin, I want to give up. re: pt states to son while sitting EOB OBJECTIVE: Pt's son Kevin present in room with pt's permission. Pain: 03/13 Location: R hip Pain Relief Interventions Implemented: Ice, Positioning, Relaxation Training and RN aware and reports patient received medication according to time schedule Appearance: supine at onset, hospital gown, dressings to R hip intact, cortes, IV hep locked Behavior: Awake, cooperative with encouragement and education. Anxious, screams/yells out with mobility however receptive to cues. Cognition: A AND Ox3, follows one step commands with v/c UE Status: not formally addressed however BUE appear WFL for ADL Self Care: Assistance Level NA Dep Max Mod Min CG CS DS GA I Set-Up Cues Comment Feeding X Eating from breakfast tray Grooming/ Hygiene X Anticipate based on observed function Bathing: Upper Body X Anticipate for thoroughness Bathing: Lower Body X Anticipate for LEs and buttocks Dressing: Upper Body X To don gown around backside Dressing: Lower Body X To don socks bed level Toileting X (+) cortes and anticipate dependent for hygiene Toilet Transfers X Bed Transfer x2 Attempted sit>stand from EOB to RW, maximal v/c for hand placement, upright posture, and forward gaze. Stood ~2 minutes s prior to pt reporting feeling dizzy, returned sitting EOB d/y prior hypotensive episodes. Vitals below. Unable to further progress d/t pain and anxiety. Max x2 stand pivot transfer to chair. Bed Mobility x2 Supine > sit EOB with cues for sequencing. Cues for distributing weight evenly throughout buttocks as pt frequently offloads onto (L) hip Patient remained seated in bedside chair at end of session. Chair alarm intact and Dewayne sling under pt. Call calles and telephone within reach. RN aware of patient location and mobility status. Patient instructed to call RN assist for all mobility. Endurance for Self Care: Impaired Vitals (RN aware): Post-standing: BP 105/44, HR 89 bpm Patient/Family Education: 1) Instructed Patient and son in roles of therapy. 2) Educated patient on WBAT (R) LE precautions for mobility 3) Maximally educated patient on purpose of progressing functional mobility while in house to prevent further deconditioning. DME: With Patients permission ordered no equipment via [employer] Order. If any questions contact [facility] DME Provider at [phone]. 7 Clicks Daily Activity OT 01/08/2022 Help from another person Eating meals 3 Help from another person taking care of personal grooming 3 Help from another person bathing 2 Help from another person putting on and taking off regular upper body clothing 3 Help from another person putting on and taking off regular lower body clothing 1 Help from another person toileting 1 OT 6 Clicks Score 13 6 Click Score Guidelines: 1 - Unable = Total/Dependent Assist 2 - A lot = Max/Moderate Assist 3 - A little = Minimum/Contact Guard Assist/Supervision 4 - Non = Modified [place]/Independent ASSESSMENT: Patient continues to require maximal assistance from 2 skilled therapists for all mobility. Recommend further therapy services in a Skilled Rehab Setting once medically cleared. Will continue to follow patient while in hospital as appropriate. Goals (to be achieved by discharge from acute care): ONGOING Patient will perform grooming with???Minimal assistance Patient will dress upper body with???Minimal assistance Patient will perform bed mobility with???Moderate assistance x 2 Patient will perform bed transfers with???Moderate assistance x 2 Report reduced pain level to allow for participation in ADL/IADL PLAN: Continue with Plan as per Initial Evaluation. Radha Valentine, MOT, OTR/L NA = Not Assessed, I = Independent, GA = Modified Independent, Sup = Supervised, Set up = Physical Assistance for Set-up Only, Min = Minimal Assistance, Mod = Moderate Assistance, Max = Max assistance; Dep = Dependent; AROM = Active Range of Motion;PROM=Passive Range of Motion; MMT = Manual Muscle Test; Shld= Shoulder; Add = Adduction; Abd = AbductionThe [employer] [id number] Consult note* Paxton Patricia - 01/08/2022 10:04 AM EDT PHYSICAL THERAPY PROGRESS SUMMARY Patient seen from 924 to 954 on unit for 30 minute co-treatment w/ [facility] OT for skilled need of 2 therapist for pt safety and mobility . SUBJECTIVE: Patient Subjective/Goals: I can't do this. OBJECTIVE: Appearance: pt in bed upon entering room w/ son at bedside, cortes intact Behavior: alert,cooperative, anxious, screams out w/ mobility, receptive to vc's, requires encouragement and education on importance of mobility Pain: Site/Location: R hip; Pain Scale: 8/10 Pain Relief Interventions Implemented: Ice, Positioning and Relaxation Training therex-AP 1x10,QS (poor RLE), assisted HS RLE 1x4 +muscle guarding w/ HS R heel cord stretch 2x/30 second hold Mobility NA Dep Max Mod Min CG CS DS GA I Comment Supine to sit x2 Transfers x2 Stand pivot bed to chair WBAT RLE Sit to/from stand x2 From EOB to rolling walker Walking on level surface x Unable to progress ambulation d/t pain, anxiety. Stairs x Not functionally appropriate Stand to sit x2 For eccentric control Sit to Supine x Functional Endurance: improving BP post cpbkrhjp=002/44 (BP checked d/t pt reports feeling of passing out) Sitting Balance: Static:fair Dynamic:fair *Pt tends to lean L to offload R hip Standing Balance: Static: poor w/ rolling walker Dynamic:poor w/ rolling walker *Pt stands x 2 minutes w/ use of rolling walker. Frequent cues for upright posture and to increase UE weight bearing on walker. Pre-gait= manual assist lateral weight shifts *Unable to transfer w/ walker to chair or advance gait d/t pt reports feeling of passing out. Pt returned to EOB w/ BP checked and WFL's (see under functional mobility). Pt symptoms improved w/ pt tolerating stand pivot transfer to bedside chair. Patient/Family Education: Patient instructed in calling for nursing assist for any additional needs. Pt advised to sit in chair for minimum 1 hour to prevent ill effects of continuous bedrest. Pt aware to call for nursing staff when ready to return to bed. Patient up in chair with call light in reach. Chair alarm intact. Dewayne sling in chair for return to bed by staff if needed DME: With Patients permission ordered no equipment via [employer] Order. If any questions contact [facility] DME Provider at [phone]. 6 Clicks Basic Mobility PT 01/08/2022 Difficulty turning over in bed 2 Difficulty sitting down and standing up from a chair with arms 2 Difficulty moving from lying on back to sitting on the side of the bed 2 Help from another person moving to and from bed to a chair 2 Help from another person to walk in hospital room 1 Help from another person climbing 3-5 steps with a railing 1 PT 6 Clicks Score 10 6 Click Score Guidelines: 1 - Total = Requires total assistance, or cannot do at all. 2 - A lot = Requires a lot of help (maximun to moderate assistance) Can use assistive devices. 3 - A little = Requires a little help (supervision, minimal assistance) Can use assistive devices. 4 - None = Does not require any help and does the activity independently. Can use assistive devices. ASSESSMENT: Pt is functionally limited by pain,decrease strength and stamina. Pt will need further inpt therapies in a skilled setting when medically ready. GOALS (to be achieved by hospital discharge): all goals ongoing, progressing as expected 1. Patient to achieve acceptable level of pain control to participate in Therapy sessions. 2. Patient to improve bed mobility to mod A 3. Patient to demonstrate sit to stand transfer to/from multi-level surface mod A with RW 4. Patient to ambulate 10 feet with RW and mod A 5. Patient to transfer EOB <> bedside chair with RW and mod A 6. Patient to demonstrate appropriate stamina and balance to attain above functional goals without LOB or SOB. PLAN: Will follow established Plan of Care Patricia Matta LPTA Beeper #[phone] NA = Not Assessed, I = Independent, GA = Modified Independent, Sup = Supervised, Set up = Physical Assistance for Set-up Only, Min = Minimal Assistance, Mod = Moderate Assistance, Max = Maximal assistance; Dep = Dependent; AROM = Active Range of Motion; PROM = Passive Range of Motion; MMT = Manual Muscle Test [employer] Work Phone: [phone] Consult note* Patricia Matta - 01/08/2022 10:04 AM EDT PHYSICAL THERAPY PROGRESS SUMMARY Patient seen from 924 to 954 on 7B unit for 30 minute co-treatment w/ E.Hriczo OT for skilled need of 2 therapist for pt safety and mobility . SUBJECTIVE: Patient Subjective/Goals: I can't do this. OBJECTIVE: Appearance: pt in bed upon entering room w/ son at bedside, cortes intact Behavior: alert,cooperative, anxious, screams out w/ mobility, receptive to vc's, requires encouragement and education on importance of mobility Pain: Site/Location: R hip; Pain Scale: 8/10 Pain Relief Interventions Implemented: Ice, Positioning and Relaxation Training therex-AP 1x10,QS (poor RLE), assisted HS RLE 1x4 +muscle guarding w/ HS R heel cord stretch 2x/30 second hold Mobility NA Dep Max Mod Min CG CS DS GA I Comment Supine to sit x2 Transfers x2 Stand pivot bed to chair WBAT RLE Sit to/from stand x2 From EOB to rolling walker Walking on level surface x Unable to progress ambulation d/t pain, anxiety. Stairs x Not functionally appropriate Stand to sit x2 For eccentric control Sit to Supine x Functional Endurance: improving BP post qgtvlcww=025/44 (BP checked d/t pt reports feeling of passing out) Sitting Balance: Static:fair Dynamic:fair *Pt tends to lean L to offload R hip Standing Balance: Static: poor w/ rolling walker Dynamic:poor w/ rolling walker *Pt stands x 2 minutes w/ use of rolling walker. Frequent cues for upright posture and to increase UE weight bearing on walker. Pre-gait= manual assist lateral weight shifts *Unable to transfer w/ walker to chair or advance gait d/t pt reports feeling of passing out. Pt returned to EOB w/ BP checked and WFL's (see under functional mobility). Pt symptoms improved w/ pt tolerating stand pivot transfer to bedside chair. Patient/Family Education: Patient instructed in calling for nursing assist for any additional needs. Pt advised to sit in chair for minimum 1 hour to prevent ill effects of continuous bedrest. Pt aware to call for nursing staff when ready to return to bed. Patient up in chair with call light in reach. Chair alarm intact. Dewayne sling in chair for return to bed by staff if needed DME: With Patients permission ordered no equipment via [employer] Order. If any questions contact [facility] DME Provider at [phone]. 6 Clicks Basic Mobility PT 01/08/2022 Difficulty turning over in bed 2 Difficulty sitting down and standing up from a chair with arms 2 Difficulty moving from lying on back to sitting on the side of the bed 2 Help from another person moving to and from bed to a chair 2 Help from another person to walk in hospital room 1 Help from another person climbing 3-5 steps with a railing 1 PT 6 Clicks Score 10 6 Click Score Guidelines: 1 - Total = Requires total assistance, or cannot do at all. 2 - A lot = Requires a lot of help (maximun to moderate assistance) Can use assistive devices. 3 - A little = Requires a little help (supervision, minimal assistance) Can use assistive devices. 4 - None = Does not require any help and does the activity independently. Can use assistive devices. ASSESSMENT: Pt is functionally limited by pain,decrease strength and stamina. Pt will need further inpt therapies in a skilled setting when medically ready. GOALS (to be achieved by hospital discharge): all goals ongoing, progressing as expected 1. Patient to achieve acceptable level of pain control to participate in Therapy sessions. 2. Patient to improve bed mobility to mod A 3. Patient to demonstrate sit to stand transfer to/from multi-level surface mod A with RW 4. Patient to ambulate 10 feet with RW and mod A 5. Patient to transfer EOB <> bedside chair with RW and mod A 6. Patient to demonstrate appropriate stamina and balance to attain above functional goals without LOB or SOB. PLAN: Will follow established Plan of Care Patricia Matta LORRIE Beeper #[phone] NA = Not Assessed, I = Independent, GA = Modified Independent, Sup = Supervised, Set up = Physical Assistance for Set-up Only, Min = Minimal Assistance, Mod = Moderate Assistance, Max = Maximal assistance; Dep = Dependent; AROM = Active Range of Motion; PROM = Passive Range of Motion; MMT = Manual Muscle Test * Radha Valentine OT - 01/08/2022 9:55 AM EDT OCCUPATIONAL THERAPY PROGRESS SUMMARY Patient seen from 925 to 955 on 7C unit for 30 minute treatment. Co-tx with APPLICATION PERFORMANCE ENGINEER for skilled assist with progression of functional mobility and safety. SUBJECTIVE: Patient Subjective/Goals: Is Kevin here? Kevin, I want to give up. re: pt states to son while sitting EOB OBJECTIVE: Pt's son Kevin present in room with pt's permission. Pain: 03/13 Location: R hip Pain Relief Interventions Implemented: Ice, Positioning, Relaxation Training and RN aware and reports patient received medication according to time schedule Appearance: supine at onset, hospital gown, dressings to R hip intact, cortes, IV hep locked Behavior: Awake, cooperative with encouragement and education. Anxious, screams/yells out with mobility however receptive to cues. Cognition: A&Ox3, follows one step commands with v/c UE Status: not formally addressed however BUE appear WFL for ADL Self Care: Assistance Level NA Dep Max Mod Min CG CS DS GA I Set-Up Cues Comment Feeding X Eating from breakfast tray Grooming/ Hygiene X Anticipate based on observed function Bathing: Upper Body X Anticipate for thoroughness Bathing: Lower Body X Anticipate for LEs and buttocks Dressing: Upper Body X To don gown around backside Dressing: Lower Body X To don socks bed level Toileting X (+) cortes and anticipate dependent for hygiene Toilet Transfers X Bed Transfer x2 Attempted sit>stand from EOB to RW, maximal v/c for hand placement, upright posture, and forward gaze. Stood ~2 minutes s prior to pt reporting feeling dizzy, returned sitting EOB d/y prior hypotensive episodes. Vitals below. Unable to further progress d/t pain and anxiety. Max x2 stand pivot transfer to chair. Bed Mobility x2 Supine > sit EOB with cues for sequencing. Cues for distributing weight evenly throughout buttocks as pt frequently offloads onto (L) hip Patient remained seated in bedside chair at end of session. Chair alarm intact and Dewayne sling under pt. Call calles and telephone within reach. RN aware of patient location and mobility status. Patient instructed to call RN assist for all mobility. Endurance for Self Care: Impaired Vitals (RN aware): Post-standing: BP 105/44, HR 89 bpm Patient/Family Education: 1) Instructed Patient and son in roles of therapy. 2) Educated patient on WBAT (R) LE precautions for mobility 3) Maximally educated patient on purpose of progressing functional mobility while in house to prevent further deconditioning. DME: With Patients permission ordered no equipment via [employer] Order. If any questions contact [facility] DME Provider at [phone]. 6 Clicks Daily Activity OT 01/08/2022 Help from another person Eating meals 3 Help from another person taking care of personal grooming 3 Help from another person bathing 2 Help from another person putting on and taking off regular upper body clothing 3 Help from another person putting on and taking off regular lower body clothing 1 Help from another person toileting 1 OT 6 Clicks Score 13 6 Click Score Guidelines: 1 - Unable = Total/Dependent Assist 2 - A lot = Max/Moderate Assist 3 - A little = Minimum/Contact Guard Assist/Supervision 4 - Non = Modified [place]/Independent ASSESSMENT: Patient continues to require maximal assistance from 2 skilled therapists for all mobility. Recommend further therapy services in a Skilled Rehab Setting once medically cleared. Will continue to follow patient while in hospital as appropriate. Goals (to be achieved by discharge from acute care): ONGOING Patient will perform grooming with Minimal assistance Patient will dress upper body with Minimal assistance Patient will perform bed mobility with Moderate assistance x 2 Patient will perform bed transfers with Moderate assistance x 2 Report reduced pain level to allow for participation in ADL/IADL PLAN: Continue with Plan as per Initial Evaluation. Radha Valentine, MOT, OTR/L NA = Not Assessed, I = Independent, GA = Modified Independent, Sup = Supervised, Set up = Physical Assistance for Set-up Only, Min = Minimal Assistance, Mod = Moderate Assistance, Max = Max assistance; Dep = Dependent; AROM = Active Range of Motion;PROM=Passive Rangeof Motion; MMT = Manual Muscle Test; Shld= Shoulder; Add = Adduction; Abd = Abduction * Dulce Leahy - 01/07/2022 9:55 AM EDT Diet Floor Finisher Nutrition Screening Reason for visit: LOS 5 or more days Assessment Admitting Diagnosis: Other fracture of right femur, initial encounter for closed fracture (HCC) [S72.8X1A] High risk nutrition diagnosis: No - no points Past Medical History: History reviewed. No pertinent past medical history. Food Allergies: NKFA Labs: LFT's (last 3 years, up to 5 values) None Albumin: n/a - no points Skin Integrity: Surgical incision - no points Fluid Accumulation: +1 - +2 Pitting edema - 2 points Diet Order: Regular; 2 GM Sodium % PO Intake: 25-50% Intake Difficulties: loose stool - 0 points 5' 1 131.1875 lbs BODY MASS INDEX 01/01/2022 Kg 59.506 kg Lbs 131 lb 3 oz BMI: 24.79 BMI Screening value: 21 or greater - 0 points % Weight Loss: not significant Weight Loss Screening Value: Not significant - 0 points Education: No nutrition education indicated at this time. Comments: Not eating well today, however reports she ate well yesterday. No breakfast taken. Has strawberries at bedside from family. Gets assistance with ordering meal trays. Encouraged her to orderher lunch - Nursing in room and states she will assist. Continue to encourage po intake. Number of Points: 2 Nutritional Plan of Care: Less than or equal to 6 points: At this time, patient is at low nutritionrisk. DTR to provide routine follow up. Will continue to follow, Dulce Leahy, Diet Floor Finisher Pager [phone] * Martha Arrington, OT - 01/06/2022 12:05 PM EDT OCCUPATIONAL THERAPY PROGRESS SUMMARY Patient seen from 1113 to 1201 on 7B unit for 44 minute treatment. SUBJECTIVE: Patient Subjective/Goals Were you taught to lie in school? (patient joking with therapists when stated she looked good sitting on the edge of the bed. ) OBJECTIVE: Pain: unrated pain in R LE Pain Relief Interventions Implemented: Positioning and Rest Appearance/Behavior: 2L O2 via NC, hep lock IV, R LE aquacel dressing reinforced with ABD pad, slight discharge noted on pad Cognition: alert and oriented x3 with increased time, follows one step commands consistently UE Status: Not formally tested, observed to be grossly WFL for completion of ADLs Self Care: Assistance Level NA Dep Max Mod Min CG CS DS GA I Set-Up Cues Comment Feeding x cues for upright posture and small sips to drink water Grooming/ Hygiene x Bathing: Upper Body x Bathing: Lower Body x Dressing: Upper Body x don gown around back Dressing: Lower Body x don socks Toileting x dependent for beata care for small amount of BM Toilet Transfers x Bed Transfer x2 Max A x2 sit to stand, unable to achieve full upright stance. Patient defers transfer attempts to chair following. Mod ax2 to scoot hips toward HOB in three trials Bed Mobility x2 performed rolling several times for bed fournier placement/removal, chux pad replacementmod A . supine to sit with increased time and cues to perform max A x2. Sat EOB 20 min edge of bed. BP 1101-125/47, denied orthostatic symptoms. O2 sats 100% on 3 L O2 NC, pulse in 70s Max A x2 sit to supine Patient supine in bed at end of session, call light within reach. Endurance for Self Care: Impaired Patient/Family Education: Instructed Patient in roles of therapy. DME: With Patients permission ordered no equipment via [employer] Order. If any questions contact [facility] DME Provider at [phone]. 6 Clicks Daily Activity OT 01/06/2022 Help from another person Eating meals 3 Help from another person taking care of personal grooming 3 Help from another person bathing 2 Help from another person putting on and taking off regular upper body clothing 2 Help from another person putting on and taking off regular lower body clothing 1 Help from another person toileting 1 OT 6 Clicks Score 12 6 Click Score Guidelines: 1 - Unable = Total/Dependent Assist 2 - A lot = Max/Moderate Assist 3 - A little = Minimum/Contact Guard Assist/Supervision 4 - Non = Modified [place]/Independent ASSESSMENT: Recommend further therapy services in a Skilled Rehab Setting once medically cleared. Will continueto follow patient while in hospital as appropriate. Revised Grain Elevator Worker Goals: Goals (to be achieved by discharge from acute care): Patient will perform grooming with Minimal assistance Patient will dress upper body with Minimal assistance Patient will perform bed mobility with Moderate assistance x 2 Patient will perform bed transfers with Moderate assistance x 2 Report reduced pain level to allow for participation in ADL/IADL* PLAN: Continue with Plan as per Initial Evaluation. Martha Arrington, MOT, OTR/L NA = Not Assessed, I = Independent, GA = Modified Independent, Sup = Supervised, Set up = Physical Assistance for Set-up Only, Min = Minimal Assistance, Mod = Moderate Assistance, Max = Max assistance; Dep = Dependent; AROM = Active Range of Motion;PROM=Passive Rangeof Motion; MMT = Manual Muscle Test; Shld= Shoulder; Add = Adduction; Abd = Abduction * Becca Nolan, PT - 01/06/2022 12:04 PM EDT PHYSICAL THERAPY PROGRESS SUMMARY Patient seen on unit: 7B for 44 minutes billable treatment time including therapeutic activity. Co-treatment with OT for maximal patient participation, safety, and mobility progression. Time in: 1113 Time out: 1201 Precautions: High fall risk per nursing assessment (R) LE WBAT SUBJECTIVE: Patient Subjective: I feel like I need to go regarding having a bowel movement. Son at bedside but left room during session. OBJECTIVE: Appearance: resting in bed, aquacel dressing (R) hip reinforced with ABD pad with evidence of oozing. (R) LE post-op edema. Behavior: alert, pleasant, cooperative, intermittent crying out in pain, soft-spoken. Pain: Site/Location: (L) hip/leg Pain Scale: no rating/10 Pain Relief Interventions Implemented: gentle mobility, emotional support/reassurance, education, repositioning Mobility NA Dep Max Mod Min CG CS DS GA I Comment Roll to right sidelying x Very minimal roll to right for straightening of chux Roll to left sidelying x CHIEF MEDICAL DIRECTOR initially then guiding hand to bed rail. Assist with RLE. Total assistfor rear pericares for small smear. Supine to sit x2 -Significant time with cues/assist for patient to move her legs toward edge of bedand shift trunk prior to maxA x2 to attain upright sitting. -able to sit for 20 minutes edge of bed with BP 1101-125/47, denied orthostatic symptoms. O2 sats 100% on 3 L O2 NC, pulse in 70s Scooting x2 -maxA to scoot forward to get feet on the floor -modAx2 to scoot toward head of bed. Patient putting forth good effort Sit<>stand x2 Cues to push up from bed then reach for walker, limited by pain and unable to achieve full upright stance Sit to Supine x2 Assist at trunk and BLE Therapeutic Exercise: encouraged (B) ankle pumps with gentle overpressure on (R) Seated long arc quads on (L), attempting gentle (R) knee ROM however limited by pain Cues to maintain breathing throughout mobility and exercises Sitting Balance: Static:fair - bracing with UE due to pain Dynamic:fair - occasional retropulsive lean with cues to maintain center of balance Standing Balance: Static: poor - unable to achieve terminal hip extension/full upright stance Patient/Family Education: 1. Instructed patient in roles of therapy 2. Educated on (R) LE WBAT 3. Facilitated mobility as noted above with cues for deep breathing and education that anticipationof pain is sometimes worse than the pain itself DME: facility to assist Session concluded with patient resting in bed, immediate needs met, call light in reach. Patient educated to have nursing assistance with all mobility at this time. Communication: with bedside RN pre- and post-session regarding patient status 6 Clicks Basic Mobility PT Date Time Difficulty turning over in bed Difficulty sitting down and standing up from a chair with arms Difficulty moving from lying on back to sitting on the side of the bed Help from another personmoving to and from bed to a chair Help from another person to walk in hospital room Help from another person climbing 3-5 steps with a railing PT 6 Clicks Score 01/06/2022 1130 2 1 2 1 1 1 8 6 Click Score Guidelines: 1 - Unable = Total/Dependent Assist 2 - A lot = Max/Moderate Assist 3 - A little = Minimum/Contact Guard Assist/Supervision 4 - Non = Modified [place]/Independent Progressive Mobility Level: Level 4 Patient Behavior Goal to Advance to Next Level of Activity Level 0 Obtunded, unable to attend Passive [id number] exercises in bed Passive positioning and elevation of extremities Level 1 Attends Passive transfer from bed to chair Participates in active and/or passive exercises in bed or chair Level 2 Attends and achieved Level 1 Sit Upright and dangle legs over the edge of bed or chair Passive transfer from bed to chair Level 3 Attends and achieved Level 2 Perform [id number] Static standing at bedside Level 4 Attends and achieved Level 3 Standing activities Active transferring from bed to chair Gait training ASSESSMENT: Patient with increased tolerance to upright this session, able to sit edge of bed for 20 minutes and attempt standing however was limited by pain. Continue to recommend further therapy services in a Assisted Setting once medically cleared. Will continue to follow patient while in hospital asappropriate. GOALS (to be achieved by hospital discharge): all goals ongoing, progressing as expected 1. Patient to achieve acceptable level of pain control to participate in Therapy sessions. 2. Patient to improve bed mobility to mod A 3. Patient to demonstrate sit to stand transfer to/from multi-level surface mod A with RW 4. Patient to ambulate 10 feet with RW and mod A 5. Patient to transfer EOB <> bedside chair with RW and mod A 6. Patient to demonstrate appropriate stamina and balance to attain above functional goals without LOB or SOB. PLAN: continue per initial evaluation Increase independence with bed mobility, dynamic sitting tolerance, sit<>stand, (R) LE ROM/strenghtening Becca Nolan (Ellie), PT, DPT Pager: [phone] NA = Not Assessed, I = Independent, GA = Modified Independent, Sup = Supervised, Set up = Physical Assistance for Set-up Only, Min = Minimal Assistance, Mod = Moderate Assistance, Max = Maximal assistance; Dep = Dependent; AROM = Active Range of Motion; PROM = Passive Range of Motion; MMT = Manual Muscle Test * Cecelia More, OT - 01/04/2022 4:41 PM EDT OCCUPATIONAL THERAPY PROGRESS SUMMARY Patient seen from 1440 to 1510 on 7B unit for 30 minute cotreatment.with PT for skilled need to safely mobilize and manage medically SUBJECTIVE: Patient Subjective/Goals I remember you- your the therapist OBJECTIVE: Pain: Site(s): right thigh 01/11 Pain Relief Interventions Implemented: Positioning Appearance/Behavior: increased level of alertness compared to evaluation; supine in bed; prefers eyes closed; Aquacell to right thigh; copious drainage after ROM/Sitting; O2 Cognition: grossly oriented x 3; follows simple commands with repetition UE Status: BUE AAROM for overhead reach x 10 reps Self Care: Assistance Level NA Dep Max Mod Min CG CS DS GA I Set-Up Cues Comment Feeding X X X To manage cup/straw to mouth Grooming/ Hygiene X X Bathing: Upper Body X Bathing: Lower Body X Dressing: Upper Body X To change hospital gown Dressing: Lower Body X Toileting X Cortes removed prior to tx Toilet Transfers X Bed Transfer X Bed Mobility X 2 Rolling side to side for linen change at end of tx Supine <> sit Dep x 2 Static sitting EOB ~5 min with with resistance to sit on right hip; max cues for head/eyes up/open;initially able to talk with therapist; this OT noted RUE no longer resisting on bed and eyes with right upward gaze; at the moment therapists initiate return to supine, pt begins screaming at therapists * See BP's below BP: Wsbbur=744/43 Sitting=92/44 After returned to qvagjg=929/45 Endurance for Self Care: Fair Patient/Family Education: Instructed Patient/family in roles of therapy. With pt permission able to talk with family regarding pt performance this date 6 Clicks Daily Activity OT 01/04/2022 Help from another person Eating meals 3 Help from another person taking care of personal grooming 2 Help from another person bathing 1 Help from another person putting on and taking off regular upper body clothing 2 Help from another person putting on and taking off regular lower body clothing 1 Help from another person toileting 1 OT 6 Clicks Score 10 6 Click Score Guidelines: 1 - Unable = Total/Dependent Assist 2 - A lot = Max/Moderate Assist 3 - A little = Minimum/Contact Guard Assist/Supervision 4 - Non = Modified [place]/Independent ASSESSMENT: Pt with minimal improvement in activity tolerance this date; improved level of alertness Recommend further therapy services in a Skilled Rehab Setting once medically cleared. Will continueto follow patient while in hospital as appropriate. Goals (to be achieved by discharge from acute care): Patient will feed self with Minimal assistance MET Patient will perform grooming with Minimal assistance Patient will dress upper body with Minimal assistance Patient will perform bed mobility with Moderate assistance x 2 Patient will perform bed transfers with Moderate assistance x 2 Report reduced pain level to allow for participation in ADL/IADL* PLAN: Continue with Plan as per Initial Evaluation. Cecelia More OT/L b. [phone] NA = Not Assessed, I = Independent, GA = Modified Independent, Sup = Supervised, Set up = Physical Assistance for Set-up Only, Min = Minimal Assistance, Mod = Moderate Assistance, Max = Max assistance; Dep = Dependent; AROM = Active Range of Motion;PROM=Passive Rangeof Motion; MMT = Manual Muscle Test; Shld= Shoulder; Add = Adduction; Abd = Abduction * Patricia Matta - 01/04/2022 3:16 PM EDT PHYSICAL THERAPY PROGRESS SUMMARY Patient seen from 1440 to 1510 on 7B unit for 30 minute treatment. SUBJECTIVE: Patient Subjective/Goals: I think it's just being stubborn. OBJECTIVE: Appearance: pt in bed up entering room w/ O2 via NC. Dressing intact to R hip w/ drainage. Notifiedstaff Behavior: alert, slow to respond, cooperative, oriented to self, hospital and month w/ choice of 2 Pain: Site/Location: R LE ; Pain Scale: 6/10 Pain Relief Interventions Implemented: Positioning and Relaxation Training therex-AP, QS (poor RLE), assisted hip abd RLE 1x10 Assisted HS 1x5 Mobility NA Dep Max Mod Min CG CS DS GA I Comment Roll to right sidelying x To provide pt w/ clean bed linen Roll to left sidelying x To provide pt w/ clean bed linen Supine to sit x2 W/ HOB elevated Transfers x Unable to progress d/t pt became unresponsive w/ sitting EOB *See functional endurance for BP Sit to/from stand x Unable to attempt d/t pt became unresponsive Sit to Supine x2 Functional Endurance: impaired BP: Gwekjd=543/43 Sitting=92/44 After returned to lnceek=121/45 Sitting Balance: Static:poor Dynamic:poor *Pt static sits EOB ~5 minutes. Pt initially alert and tolerating sitting although tends to have a heavy L lean and resists attempts to attain midline posture. After several minutes of sitting EOB ptbecomes unresponsive to OT's verbal cues and display a R upward gaze. Pt quickly returned to supinew/ pt also becoming alert. Standing Balance: Static: n/a Dynamic: n/a Patient/Family Education: Patient instructed in calling for nursing assist for any additional needs. Pt encouraged to have HOB upright during the day. Patient up in bed with call light in reach. DME: With Patients permission ordered no equipment via [employer] Order. [email or web address] [phone]. 6 Clicks Basic Mobility PT 01/04/2022 Difficulty turning over in bed 2 Difficulty sitting down and standing up from a chair with arms 1 Difficulty moving from lying on back to sitting on the side of the bed 1 Help from another person moving to and from bed to a chair 1 Help from another person to walk in hospital room 1 Help from another person climbing 3-5 steps with a railing 1 PT 6 Clicks Score 7 6 Click Score Guidelines: 1 - Total = Requires total assistance, or cannot do at all. 2 - A lot = Requires a lot of help (maximun to moderate assistance) Can use assistive devices. 3 - A little = Requires a little help (supervision, minimal assistance) Can use assistive devices. 4 - None = Does not require any help and does the activity independently. Can use assistive devices. ASSESSMENT: Pt is functionally limited by pain,decrease strength and stamina. Pt also w/ decrease tolerance to sitting upright, becoming unresponsive but recovers once returned to supine. Pt will need further inpt therapies in a skilled setting when medically ready. Goals (to be achieved by discharge from acute care): ONGOING All goals to be achieved while WBAT (R) LE 1. Patient to achieve acceptable level of pain control to participate in Therapy sessions. 2. Patient to improve bed mobility to mod A 3. Patient to demonstrate sit to stand transfer to/from multi-level surface mod A with RW 4. Patient to ambulate 10 feet with RW and mod A 5. Patient to transfer EOB <> bedside chair with RW and mod A 6. Patient to demonstrate appropriate stamina and balance to attain above functional goals without LOB or SOB. PLAN: Will follow established Plan of Care Patricia ANDREW Beeper #[phone] NA = Not Assessed, I = Independent, GA = Modified Independent, Sup = Supervised, Set up = Physical Assistance for Set-up Only, Min = Minimal Assistance, Mod = Moderate Assistance, Max = Maximal assistance; Dep = Dependent; AROM = Active Range of Motion; PROM = Passive Range of Motion; MMT = Manual Muscle Test * Cecelia More OT - 01/04/2022 7:46 AM EDTAssociated Order(s): IP OCCUPATIONAL THERAPY SERVICE REQUEST Occupational Therapy Note Duplicate referral - pt on program wit recommendation for SNF Cecelia More OT/L b. [phone] * Cecelia More OT - 01/03/2022 10:28 AM EDTAssociated Order(s): IP OCCUPATIONAL THERAPY SERVICE REQUEST OCCUPATIONAL THERAPY INITIAL EVALUATION Patient seen from 911 to 951 on 7B unit for 40 minutes.eval and tx Reason for Admit: 86 yo s/p fall from standing Diagnosis/Injuries include: Right femoral shaft fx OR on 01/02/22 for IM nail right femur Precautions/Activity Order: WBAT RLE; falls; act as dino Past Medical and Surgical History: PMH: History reviewed. No pertinent past medical history. (Per family) HTN with change in BP meds last month; mini strokes SUBJECTIVE: Patient Subjective: Oh, Oh that hurts Patient Identified Goal(s): to no hurt Home Living Situation Prior Functional Status: Independent Living self care; Assist for IADL's Assistance Available at Home: son lives next door to patient and assists with household tasks/errand/shopping Patient lives in a 1 story home 3 stairs to enter.with rail Full Bathroom on 1 level Bedroom on 1 level. Equipment available at home: RW, cane, shower bench OBJECTIVE: Patient Identification: patient verbalizing his/her name and date of . Risks and benefits of occupational therapy: Patient informed of risks and benefits of treatment Appearance: Frail, Oxygen, IV and Cortes Alertness: Lethargic Affect: flat Cooperation/Behavior: Pleasant and cooperative; confused Communication: demonstrates some word finding difficulties Pain: Pain ratin/10, Location: right thigh/hip Pain Relief Interventions Implemented: Positioning Self Care: Assistance Level Dep Max Mod Min CG CS DS GA I Set-Up Comment Feeding X To manage drinks to mouth with straw Grooming/Hygiene X BUE ROM rigid/guarded Bathing:UB X Bathing:LB X Dressing:UB X Dressing: LB X Toileting X Cortes in place Transfers/Bed Mobility: pt had received 1 unit of blood prior to mobility Assistance Level Dep Max Mod Min CG CS DS GA I Set-Up Comment Toilet Transfers Bed Transfers deferred Bed Mobility X 2 Supine to sit EOB; once sitting pt increasingly less interactive (<2 min) and therapist notes a right upward gaze; returned to supine dep assist x 2; pt immediately responsive to therapists. Pt sat up in chair position in bed with the below vitals taken: HOB 70* > BP 87/32; O2 sat 99 HR 88 HOB 50* > BP 89/27 HOB 25* > BP 97/30 MAP 46 Nursing aware and present Endurance for Self Care: Poor Static Sitting Balance: Fair Dynamic Sitting Balance: N/T UE Motor: BUE AAROM grossly WFL. Pt with right elbow weakness requiring assist to achieve full ext which pt reports is baseline Vision/Perception: N/T Cognition: Orientation: Oriented to person, place and month(given 2 choices) Follows Commands: one step commands, requires occasional repeat of directions and easily distracted Attention: Impaired and easily distracted during task Memory: able to recall month from start of session Problem Solving: Needs further assessment Safety/Judgement: lacks insight into impairments/expectations of mobility Sequencing: NT Patient/Family Education: pt and family instructed in roles, goals, treatment plan: demonstrated good verbal understanding Instructed in d/c recommendations for SNF Patient up in bed with call light in reach. 6 Clicks Daily Activity OT 01/03/2022 Help from another person Eating meals 2 Help from another person taking care of personal grooming 2 Help from another person bathing 1 Help from another person putting on and taking off regular upper body clothing 1 Help from another person putting on and taking off regular lower body clothing 1 Help from another person toileting 1 OT 6 Clicks Score 8 6 Click Score Guidelines: 1 - Unable = Total/Dependent Assist 2 - A lot = Max/Moderate Assist 3 - A little = Minimum/Contact Guard Assist/Supervision 4 - Non = Modified [place]/Independent ASSESSMENT: Recommend further therapy services in a Skilled Rehab Setting once medically cleared. Will continueto follow patient while in hospital as appropriate. Rehabilitation Potential: Fair Problem List: decreased ADLs, impaired upper extremity motor function, decreased endurance, decreased functional transfers/mobility, impaired balance, decreased functional activity tolerance and increased pain Goals (to be achieved by discharge from acute care): Patient will feed self with Minimal assistance Patient will perform grooming with Minimal assistance Patient will dress upper body with Minimal assistance Patient will perform bed mobility with Moderate assistance x 2 Patient will perform bed transfers with Moderate assistance x 2 Report reduced pain level to allow for participation in ADL/IADL PLAN: Toribio Betts will be seen 1-3 times a week. Treatment to include: Functional AROM/Strengthening, functional mobility training, ADL retraining, functional endurance activities, home management retraining, adaptive equipment / compensatory strategy training and patient / family education and discharge planning able to discuss the evaluation findings and treatment plan with the patient/family. The patient/family did not participate in the development of plan and goals. Cecelia More OT/L b. [phone] NA = Not Assessed, I = Independent, GA = Modified Independent, Sup = Supervised, Set up = Physical Assistance for Set-up Only, Min = Minimal Assistance, Mod = Moderate Assistance, Max = Max assistance; Dep = Dependent; AROM = Active Range of Motion;PROM=Passive Rangeof Motion; MMT = Manual Muscle Test; UB = Upper Body; LB = Lower Body * Nanci Austin, PT - 01/03/2022 8:23 AM EDTAssociated Order(s): IP PHYSICAL THERAPY SERVICE REQUEST; IP PHYSICAL THERAPY SERVICE REQUEST PHYSICAL THERAPY ACUTE EVALUATION Referral received, chart reviewed. Patient seen from 9:15 am to 9:53 am on 7B unit for 38 minutes. (eval + treat) Patient seen as co-treatment with occupational therapy secondary to skilled need of 2 therapists tosafely mobilize patient. Admit date/time: 01/01/2022 12:44 AM Reason for Admit: 86 yo female admitted s/p fall from standing Diagnosis: (R) femoral shaft fracture (R) hairline fx into the intertrochanteric region Precautions: (R) LE WBAT per brief op note High falls risk Full code Regular 2 GM sodium diet Procedures this admit: 01/01/22 ECG 01/02/22 (R) LE IM nail of femur (Dr. Sher) Past Medical and Surgical History: Cardiac, pulmonary HTN Identification was verified by patient verbalizing his/her name and date of . Risks and Benefits of physical therapy: Patient informed of risks and benefits of treatment SUBJECTIVE: Patient Subjective: ow! 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 0 steps to bedroom/bathroom Assistance available: Son Equipment available: RW, cane, tub bench, grab bars OBJECTIVE: Appearance: Supine in bed Hospital gown Cortes Hep-locked IV Behavior: Awake Soft spoken Difficulty with word finding - per patients son this is baseline Anxious / painful Oriented x self, month (with options), location, but not year (despite options) Follows simple step commands consistently and with cues Pain: Site/Location: (R) LE; Pain Scale: 5 /10 Pain Relief Interventions Implemented: Positioning, Relaxation Training and RN aware and reports patient received medication according to time schedule Passive ROM: (B) LE Grossly WFL throughout despite pain Strength/Active ROM: Unable to formally assess seated EOB due to patient becoming unresponsive Patient able to perform (B) ankle pumps supine Patient able to perform (L) hip/knee flexion without assist supine Patient able to activate muscles for (R) hip/knee flexion but unable to complete partial ROM. Impaired strength (R) UE > (L) UE; see OT eval for details Mobility: Assistance level Dep Max Mod Min CGA CS Sup DS Mod I I Set-up Comments Rolling L X1 For pad placement Supine to sit X2 Max A at trunk Max A at LEs Sit to supine X2 Dep at LEs Dep at trunk * dep x 2 for positioning Transfers Not attempted at this time due to safety concerns Exercises: (B) ankle pumps x 10 (L) AROM hip/knee flexion x 10 (R) AAROM hip/knee flexion x 3 with progressive flexion for quad stretch Endurance: Impaired Vitals: Seated EOB patient became unresponsive with an upward R eye drift Patient returned to supine, became responsive again and stated she felt better Patient attempted to sit in an upright position in bed: BP 87/32 (45), 99% O2, 88bpm Patient reclined to ~50*: BP 89/27 (41) Patient reclined further to ~25*: BP 97/30 (46) Patient then returned to full supine position. RN at bedside and aware of vitals. Per family patients BP is typically elevated in the 130s-70s and at baseline she has difficulty with word finding due to previous mini strokes. RN made aware. Per family also, upon arrival patient seemed to present more drowsy and off baseline. Patient/Family Education: Instructed Patient in roles of therapy. Instructed Patient in roles, goals, treatment plan: demonstrated good verbal understanding. Discussed importance of mobility with patient while in the hospital setting. Patient acknowledges understanding. Patient up in bed with call light in reach. Bed alarm intact. RN is at bedside. DME: With Patients permission ordered no equipment via [employer] Order. If any questions contact [facility] DME Provider at [phone]. 6 Clicks Basic Mobility PT 01/03/22 Difficulty turning over in bed 2 Difficulty sitting down and standing up from a chair with arms 1 Difficulty moving from lying on back to sitting on the side of the bed 1 Help from another person moving to and from bed to a chair 1 Help from another person to walk in hospital room 1 Help from another person climbing 3-5 steps with a railing 1 PT 6 Clicks Score 7 6 Click Score Guidelines: 1 - Total = Requires total assistance, or cannot do at all. 2 - A lot = Requires a lot of help (maximun to moderate assistance) Can use assistive devices. 3 - A little = Requires a little help (supervision, minimal assistance) Can use assistive devices. 4 - None = Does not require any help and does the activity independently. Can use assistive devices. Progressive Mobility Protocol Score: Level 2 ASSESSMENT: Toribio Betts is a 86 year old female admitted s/p fall from standing and diagnosed with (R) femoral shaft fracture. Patient is now s/p (R) LE IM nail placement on 01/02/[address] Sher. At timeof evaluation patient was willing and able to attempt mobilization and sitting EOB; however, upon sitting EOB patient became unresponsive and demonstrated abnormal vital signs. Patient is currently functioning below her baseline level with decreased strength, balance, and endurance. Therefore, recommend further therapy services in a Assisted Setting once medically cleared. Will continue tofollow patient while in hospital as appropriate. Problems: Pain Decreased ROM/strength Decreased functional mobility Decreased endurance Decreased balance Decreased education in exercise/precautions Decreased cognition/behavior Impaired safety awareness Rehabilitation Potential: Good Goals (to be achieved by discharge from acute care): All goals to be achieved while WBAT (R) LE 1. Patient to achieve acceptable level of pain control to participate in Therapy sessions. 2. Patient to improve bed mobility to mod A 3. Patient to demonstrate sit to stand transfer to/from multi-level surface mod A with RW 4. Patient to ambulate 10 feet with RW and mod A 5. Patient to transfer EOB <> bedside chair with RW and mod A 6. Patient to demonstrate appropriate stamina and balance to attain above functional goals without LOB or SOB. PLAN OF CARE: Frequency: Patient to be seen 1-3 times a week Interventions: Functional mobility ROM/Strengthening Home exercise program Discharge planning and equipment ordering as needed Patient /Family education The evaluation findings and treatment plan were discussed with the patient/family. The patient/family indicated understanding and agreement with the plan. Nanci Austin, LIANA, DPT NA = Not Assessed, I = Independent, GA = Modified Independent, Sup = Supervised, Set up = Physical Assistance for Set-up Only, Min = Minimal Assistance, Mod = Moderate Assistance, Max = Max assistance; Dep = Dependent; AROM = Active Range of Motion; PROM = Passive Range of Motion; MMT = Manual Muscle Test; LE = Lower Extremity * Cecelia Stiles PT - 01/02/2022 11:15 AM EDT PHYSICAL THERAPY Continue to follow this Patient who is currently in OR for Fixation of (R) Femoral Shaft Fx Will HOLD PT Eval at this time and follow up post-operatively. Report to follow. Cecelia Stiles PT, MPT (B) [phone] * Mari Hung OT - 01/02/2022 7:34 AM EDT Occupational Therapy Per chart review, pt was cleared for OR for CMN R femur with Dr. Fierro by trauma team on 01/01/22. Pt planning for OR this date. Will hold OT eval until post-op. Mari Hung OTR/L * Cecelia Stiles PT - 01/01/2022 8:33 AM EDT PHYSICAL THERAPY Consult received and appreciated. Chart reviewed in full. Plan it OR this date for fixation of (R) Femoral Shaft Fx. Will HOLD PT Evaluation until post-operatively Full report to follow. Cecelia Stiles PT, MPT (B) [phone] * Mari Hung OT - 01/01/2022 7:31 AM EDT Occupational Therapy Chart Review Admit Date: 01/01/22 OT Referral Date: 01/01/22 Service: Trauma Reason for Admit: transfer from [facility] s/p fall from standing Diagnosis: R femoral shaft fx Procedures: planning for OR this date for fixation of R femur Precautions: high falls, full code, NPO, progressive mobility, NWB RLE (pre-op) Home/Social: Will ascertain during evaluation post-op. Evaluation to follow. Please update weightbearing status post-op. Mari Hung OTR/L * Eric Sher MD - 01/01/2022 6:24 AM EDT Orthopaedic Surgery Consult H&P Requesting Provider / Service: ED/Trauma CC: R Hip pain HPI: 86 year old female with CAD (plavix) Afib (eliquis) presents as Cat2 trauma after mGLF at home. Noted to have immediate pain in R hip. Rates pain a 7/10. Worse with movement, better with rest. Denies any numbness or tingling. Found to have R subtroch femur fracture. Admitted to trauma for further evaluation. PMH: CAD, CHF, CVA, HLD, HTN, DM, AFib on Eliquis PSHx: Cardiac cath/stents Social History Socioeconomic History Marital status: Single Tobacco Use Smoking status: Never Smoker Smokeless tobacco: Never Used Vaping Use Vaping Use: Never used Allergy: No Known Allergies Current Facility-Administered Medications: ceFAZolin (ANCEF) 2,000 mg in dextrose 50 mL ivpb, 2 g, Intravenous, One Time Dose, Trever Umana MD HYDROmorphone (DILAUDID) 0.2 MG/ML injection 0.2 mg, 0.2 mg, Intravenous Push, One Time Dose, Trever Umana MD atorvastatin (LIPITOR) tablet, 40 mg, Oral, At Bedtime, Ron Bach MD furosemide (LASIX) tablet, 20 mg, Oral, Daily, Ron Bach MD metoprolol (LOPRESSOR) tablet, 25 mg, Oral, 2x Daily, Ron Bach MD esomeprazole (NEXIUM) capsule, 20 mg, Oral, Daily 30 min before breakfast, Ron Bach MD sertraline (ZOLOFT) tablet, 25 mg, Oral, Daily, Ron Bach MD acetaminophen (TYLENOL) tablet, 650 mg, Oral, Every 4 hours, Ron Bach MD, 650 mg at 01/01/22 5903 ondansetron (ZOFRAN) 4 MG/2ML injection, 4 mg, Intravenous Push, Q4H PRN, Ron Bach MD lactated ringers iv infusion, , Intravenous, Continuous, Ron Bach MD, Last Rate: 50 mL/hr at 01/01/22324, New Bag at 01/01/22324 oxyCODONE immediate release tablet, 5 mg, Oral, Q4H PRN, Ron Bach MD, 5 mg at 01/01/22324 HYDROmorphone (DILAUDID) 0.2 MG/ML injection 0.2 mg, 0.2 mg, Intravenous Push, Q3H PRN, Ron Bach MD docusate sodium (COLACE) capsule, 100 mg, Oral, 2x Daily, Ron Bach MD senna (SENOKOT) tablet, 8.6 mg, Oral, At Bedtime, Ron Bach MD dextrose 10 % iv infusion, 125 mL, Intravenous, PRN OR glucagon (GLUCAGEN) 1 MG injection, 1 mg, Subcutaneous, PRN OR dextrose (GLUTOSE) 40 % gel, 15 g of glucose, Buccal, PRN OR dextrose(GLUTOSE) 40 % gel, 30 g of glucose, Buccal, PRN, Ron Bach MD insulin lispro (HumaLOG) 100 UNIT/ML injection, 1-7 Units, Subcutaneous, 3x Daily AC, Ron Bach MD Family history: Denies family hx of clotting or bleeding disorder Review of Systems: ROS Gen: denies fevers, chills Eyes: denies vision changes ENT: denies sore throat Resp: denies cough, weezing CV: denies chest pain Endocrine: denies fatigue GI: denies abdominal pain MSK: see above Skin: denies rash Neuro: denies numbness, tingling O: Patient Vitals for the past 24 hrs: BP Temp Temp src Pulse Resp SpO2 O2 Device O2 Flow Rate (l/min) 01/01/22 0559 138/60 98.3 F (36.8 C) Oral 76 16 99 % Nasal cannula 2 01/01/22324 -- -- -- -- -- -- Nasal cannula 2 01/01/22314 157/74 97.8 F (36.6 C) Oral 86 20 96 % Nasal cannula 2 01/01/22 0230 -- -- -- 80 12 100 % -- -- 01/01/22 0205 -- -- -- 78 13 100 % -- -- 01/01/22 0105 157/81 -- -- 99 17 98 % -- -- 01/01/22 0059 157/82 -- -- 95 12 99 % -- -- 01/01/22 0048 168/93 97.7 F (36.5 C) Oral 100 17 98 % -- -- 01/01/22 0045 177/85 -- -- (!) 102 16 95 % Nasal cannula 2 Intake/Output Summary (Last 24 hours) at 01/01/2022 0624 Last data filed at 01/01/2022 0603 Gross per 24 hour Intake 60 ml Output 850 ml Net -790 ml PE: BP 138/60 (BP Location: left arm) Pulse 76 Temp 98.3 F (36.8 C) (Oral) Resp 16 Ht 5' 1 (1.549 m) Wt 131 lb 3 oz (59.5 kg) SpO2 99% BMI 24.79 kg/m Gen: AOx3, NAD HEENT: normocephalic atraumatic Psych: appropriate mood and affect Resp: nonlabored breathing Cardiac: Extremities WWP, RRR to peripheral palpation Skin: warm, dryu Neuro: SILT over BLE Right lower extremity: - Skin intact - Tender to palpation over R hip - 12/06 EHL/DF/PF. - Sensation intact to light touch in sural, saphenous, superficial/deep peroneal, tibial nerve distributions. - 2+ DP pulse, < 2 seconds capillary refill. Imaging: XR R Hip demonstrates R proximal shaft of femur fracture. A/P: 86 year old female with mGLF found to have R femur fracture. Closed, NVI. Patient and family refusing bucks skin traction and placed in pillow splint for comfort. - C/P for CMN R femur with Dr. Fierro on 01/01 - WB: NWB RLE, strict bedrest - Abx: none indicated - Diet: NPO - DVT: Per Trauma team management criteria/guidelines - Please obtain all preop labs (CBC,BMP,EKG, CXR, Coags, Type and Screen) - Cortes: placed, per trauma protocol - Pain: per trauma D/w Dr. Vadim Umana MD Orthopedic Surgery, PGY2 On-Call Admitting/Consult Resident 01/01/22 This consult was seen and staffed within 30 minutes of the initial consult. Teaching Physician Note: I saw and evaluated the patient pre-operatively. I personally obtained the cloud and critical portions of the history and physical exam. I reviewed the resident's documentation and discussed the patient with the resident. I agree with the resident's medical decision making as documented in the resident's note. We discussed the risks, benefits, and alternatives to the above surgery and the patient elected to proceed. This note represents our aggregated findings and impressions. Eric Sher MD documented in this [id number] Consult note* Radha Valentine, MARLEN - 01/08/2022 9:55 AM EDT OCCUPATIONAL THERAPY PROGRESS SUMMARY Patient seen from 925 to 955 on 7C unit for 30 minute treatment. Co-tx with APPLICATION PERFORMANCE ENGINEER for skilled assist with progression of functional mobility and safety. SUBJECTIVE: Patient Subjective/Goals: Is Kevin here? Kevin, I want to give up. re: pt states to son while sitting EOB OBJECTIVE: Pt's son Kevin present in room with pt's permission. Pain: 03/13 Location: R hip Pain Relief Interventions Implemented: Ice, Positioning, Relaxation Training and RN aware and reports patient received medication according to time schedule Appearance: supine at onset, hospital gown, dressings to R hip intact, cortes, IV hep locked Behavior: Awake, cooperative with encouragement and education. Anxious, screams/yells out with mobility however receptive to cues. Cognition: A&Ox3, follows one step commands with v/c UE Status: not formally addressed however BUE appear WFL for ADL Self Care: Assistance Level NA Dep Max Mod Min CG CS DS GA I Set-Up Cues Comment Feeding X Eating from breakfast tray Grooming/ Hygiene X Anticipate based on observed function Bathing: Upper Body X Anticipate for thoroughness Bathing: Lower Body X Anticipate for LEs and buttocks Dressing: Upper Body X To don gown around backside Dressing: Lower Body X To don socks bed level Toileting X (+) cortes and anticipate dependent for hygiene Toilet Transfers X Bed Transfer x2 Attempted sit>stand from EOB to RW, maximal v/c for hand placement, upright posture, and forward gaze. Stood ~2 minutes s prior to pt reporting feeling dizzy, returned sitting EOB d/y prior hypotensive episodes. Vitals below. Unable to further progress d/t pain and anxiety. Max x2 stand pivot transfer to chair. Bed Mobility x2 Supine > sit EOB with cues for sequencing. Cues for distributing weight evenly throughout buttocks as pt frequently offloads onto (L) hip Patient remained seated in bedside chair at end of session. Chair alarm intact and Dewayne sling under pt. Call calles and telephone within reach. RN aware of patient location and mobility status. Patient instructed to call RN assist for all mobility. Endurance for Self Care: Impaired Vitals (RN aware): Post-standing: BP 105/44, HR 89 bpm Patient/Family Education: 1) Instructed Patient and son in roles of therapy. 2) Educated patient on WBAT (R) LE precautions for mobility 3) Maximally educated patient on purpose of progressing functional mobility while in house to prevent further deconditioning. DME: With Patients permission ordered no equipment via [employer] Order. If any questions contact [facility] DME Provider at [phone]. 6 Clicks Daily Activity OT 01/08/2022 Help from another person Eating meals 3 Help from another person taking care of personal grooming 3 Help from another person bathing 2 Help from another person putting on and taking off regular upper body clothing 3 Help from another person putting on and taking off regular lower body clothing 1 Help from another person toileting 1 OT 6 Clicks Score 13 6 Click Score Guidelines: 1 - Unable = Total/Dependent Assist 2 - A lot = Max/Moderate Assist 3 - A little = Minimum/Contact Guard Assist/Supervision 4 - Non = Modified [place]/Independent ASSESSMENT: Patient continues to require maximal assistance from 2 skilled therapists for all mobility. Recommend further therapy services in a Skilled Rehab Setting once medically cleared. Will continue to follow patient while in hospital as appropriate. Goals (to be achieved by discharge from acute care): ONGOING Patient will perform grooming with Minimal assistance Patient will dress upper body with Minimal assistance Patient will perform bed mobility with Moderate assistance x 2 Patient will perform bed transfers with Moderate assistance x 2 Report reduced pain level to allow for participation in ADL/IADL PLAN: Continue with Plan as per Initial Evaluation. Radha Valentine, MOT, OTR/L NA = Not Assessed, I = Independent, GA = Modified Independent, Sup = Supervised, Set up = Physical Assistance for Set-up Only, Min = Minimal Assistance, Mod = Moderate Assistance, Max = Max assistance; Dep = Dependent; AROM = Active Range of Motion;PROM=Passive Rangeof Motion; MMT = Manual Muscle Test; Shld= Shoulder; Add = Adduction; Abd = Abduction [id number] Note* Care Plan Note - Eun Alicea RN - 01/08/2022 7:37 AM EDT Problem: Routine Care: Goal: Patient care will be managed and maintained throughout hospital stay per unit specific routine care procedure Outcome: Progressing Note: Patient care is being managed per unit protocol Problem: Impaired Mobility: Goal: Ability to tolerate increased activity will improve and be maintained Outcome: Progressing Problem: Activity Intolerance: Goal: Demonstrate progressive return to baseline activity level Outcome: Progressing Problem: VTE Prophylaxis: Goal: Will be free of DVT Outcome: Progressing Problem: Fluid and Electrolyte Imbalance: Goal: Adequate fluid and electrolyte balance will be achieved and maintained Outcome: Progressing Note: Labs drawn as ordered Problem: Anxiety: Goal: Level of anxiety will decrease Outcome: Progressing Problem: Acute Pain: Goal: Ability to identify pain intensity on a pain scale and rate it consistently will be achieved and maintained Outcome: Progressing Note: Numeric pain scale is being managed per unit protocol Problem: Safety: Goal: Patient will remain free of falls during hospital stay Outcome: Progressing Problem: Discharge Planning: Goal: Discharge needs of the adult patient will be met Outcome: Progressing [id number] Consult note* Dulce Leahy - 01/07/2022 9:55 AM EDT Diet Floor Finisher Nutrition Screening Reason for visit: LOS 5 or more days Assessment Admitting Diagnosis: Other fracture of right femur, initial encounter for closed fracture (HCC) [S72.8X1A] High risk nutrition diagnosis: No - no points Past Medical History: History reviewed. No pertinent past medical history. Food Allergies: NKFA Labs: LFT's (last 3 years, up to 5 values) None Albumin: n/a - no points Skin Integrity: Surgical incision - no points Fluid Accumulation: +1 - +2 Pitting edema - 2 points Diet Order: Regular; 2 GM Sodium % PO Intake: 25-50% Intake Difficulties: loose stool - 0 points 5' 1 131.1875 lbs BODY MASS INDEX 01/01/2022 Kg 59.506 kg Lbs 131 lb 3 oz BMI: 24.79 BMI Screening value: 21 or greater - 0 points % Weight Loss: not significant Weight Loss Screening Value: Not significant - 0 points Education: No nutrition education indicated at this time. Comments: Not eating well today, however reports she ate well yesterday. No breakfast taken. Has strawberries at bedside from family. Gets assistance with ordering meal trays. Encouraged her to orderher lunch - Nursing in room and states she will assist. Continue to encourage po intake. Number of Points: 2 Nutritional Plan of Care: Less than or equal to 6 points: At this time, patient is at low nutritionrisk. DTR to provide routine follow up. Will continue to follow, Dulce Leahy Diet Floor Finisher Pager [phone] [id number] Note* Care Plan Note - Shakira Johnson RN - 01/07/2022 7:22 AM EDT Problem: Routine Care: Goal: Patient care will be managed and maintained throughout hospital stay per unit specific routine care procedure Outcome: Progressing Note: Patient rounded on per hourly rounding unit protocol. Call light within reach, siderails in place, encouraged to call for assistance when needed. Problem: Impaired Mobility: Goal: Ability to tolerate increased activity will improve and be maintained Outcome: Progressing Problem: Activity Intolerance: Goal: Demonstrate progressive return to baseline activity level Outcome: Progressing Problem: VTE Prophylaxis: Goal: Will be free of DVT Outcome: Progressing Problem: Fluid and Electrolyte Imbalance: Goal: Adequate fluid and electrolyte balance will be achieved and maintained Outcome: Progressing Problem: Anxiety: Goal: Level of anxiety will decrease Outcome: Progressing Problem: Acute Pain: Goal: Ability to identify pain intensity on a pain scale and rate it consistently will be achieved and maintained Outcome: Progressing Note: Pain managed through scheduled and PRN medications. Patient able to rate pain using numeric pain scale. Problem: Safety: Goal: Patient will remain free of falls during hospital stay Outcome: Progressing Note: Bed alarm intact. Patient reminded to call for assistance before getting out of bed as needed. Problem: Discharge Planning: Goal: Discharge needs of the adult patient will be met Outcome: Progressing [id number] NoteOCCUPATIONAL THERAPY PROGRESS SUMMARY Patient seen from 1113 to 1201 on 7B unit for 44 minute treatment. SUBJECTIVE: Patient Subjective/Goals Were you taught to lie in school? (patient joking with therapists when stated she looked good sitting on the edge of the bed. ) OBJECTIVE: Pain: unrated pain in R LE Pain Relief Interventions Implemented: Positioning and Rest Appearance/Behavior: 2L O2 via NC, hep lock IV, R LE aquacel dressing reinforced with ABD pad, slight discharge noted on pad Cognition: alert and oriented x3 with increased time, follows one step commands consistently UE Status: Not formally tested, observed to be grossly WFL for completion of ADLs Self Care: Assistance Level NA Dep Max Mod Min CG CS DS GA I Set-Up Cues Comment Feeding x cues for upright posture and small sips to drink water Grooming/ Hygiene x Bathing: Upper Body x Bathing: Lower Body x Dressing: Upper Body x don gown around back Dressing: Lower Body x don socks Toileting x dependent for beata care for small amount of BM Toilet Transfers x Bed Transfer x2 Max A x2 sit to stand, unable to achieve full upright stance. Patient defers transfer attempts to chair following. Mod ax2 to scoot hips toward HOB in three trials Bed Mobility x2 performed rolling several times for bed fournier placement/removal, chux pad replacement mod A . supine to sit with increased time and cues to perform max A x2. Sat EOB 20 min edge of bed. BP 1101-125/47, denied orthostatic symptoms. O2 sats 100% on 3 L O2 NC, pulse in 70s Max A x2 sit to supine Patient supine in bed at end of session, call light within reach. Endurance for Self Care: Impaired Patient/Family Education: Instructed Patient in roles of therapy. DME: With Patients permission ordered no equipment via [employer] Order. If any questions contact [facility] DME Provider at [phone]. 6 Clicks Daily Activity OT 01/06/2022 Help from another person Eating meals 3 Help from another person taking care of personal grooming 3 Help from another person bathing 2 Help from another person putting on and taking off regular upper body clothing 2 Help from another person putting on and taking off regular lower body clothing 1 Help from another person toileting 1 OT 6 Clicks Score 12 6 Click Score Guidelines: 1 - Unable = Total/Dependent Assist 2 - A lot = Max/Moderate Assist 3 - A little = Minimum/Contact Guard Assist/Supervision 4 - Non = Modified [place]/Independent ASSESSMENT: Recommend further therapy services in a Skilled Rehab Setting once medically cleared. Will continue to follow patient while in hospital as appropriate. Revised Grain Elevator Worker Goals: Goals (to be achieved by discharge from acute care): Patient will perform grooming with???Minimal assistance Patient will dress upper body with???Minimal assistance Patient will perform bed mobility with???Moderate assistance x 2 Patient will perform bed transfers with???Moderate assistance x 2 Report reduced pain level to allow for participation in ADL/IADL* PLAN: Continue with Plan as per Initial Evaluation. Martha Arrington, YESIKA, OTR/L NA = Not Assessed, I = Independent, GA = Modified Independent, Sup = Supervised, Set up = Physical Assistance for Set-up Only, Min = Minimal Assistance, Mod = Moderate Assistance, Max = Max assistance; Dep = Dependent; AROM = Active Range of Motion;PROM=Passive Range of Motion; MMT = Manual Muscle Test; Shld= Shoulder; Add = Adduction; Abd = Abduction[employer] [id number] NotePHYSICAL THERAPY PROGRESS SUMMARY Patient seen on unit: 7B for 44 minutes billable treatment time including therapeutic activity. Co-treatment with OT for maximal patient participation, safety, and mobility progression. Time in: 1113 Time out: 1201 Precautions: High fall risk per nursing assessment (R) LE WBAT SUBJECTIVE: Patient Subjective: I feel like I need to go regarding having a bowel movement. Son at bedside but left room during session. OBJECTIVE: Appearance: resting in bed, aquacel dressing (R) hip reinforced with ABD pad with evidence of oozing. (R) LE post-op edema. Behavior: alert, pleasant, cooperative, intermittent crying out in pain, soft-spoken. Pain: Site/Location: (L) hip/leg Pain Scale: no rating/10 Pain Relief Interventions Implemented: gentle mobility, emotional support/reassurance, education, repositioning Mobility NA Dep Max Mod Min CG CS DS GA I Comment Roll to right sidelying x Very minimal roll to right for straightening of chux Roll to left sidelying x CHIEF MEDICAL DIRECTOR initially then guiding hand to bed rail. Assist with RLE. Total assist for rear pericares for small smear. Supine to sit x2 -Significant time with cues/assist for patient to move her legs toward edge of bed and shift trunk prior to maxA x2 to attain upright sitting. -able to sit for 20 minutes edge of bed with BP 1101-125/47, denied orthostatic symptoms. O2 sats 100% on 3 L O2 NC, pulse in 70s Scooting x2 -maxA to scoot forward to get feet on the floor -modAx2 to scoot toward head of bed. Patient putting forth good effort Sit<>stand x2 Cues to push up from bed then reach for walker, limited by pain and unable to achieve full upright stance Sit to Supine x2 Assist at trunk and BLE Therapeutic Exercise: encouraged (B) ankle pumps with gentle overpressure on (R) Seated long arc quads on (L), attempting gentle (R) knee ROM however limited by pain Cues to maintain breathing throughout mobility and exercises Sitting Balance: Static:fair - bracing with UE due to pain Dynamic:fair - occasional retropulsive lean with cues to maintain center of balance Standing Balance: Static: poor - unable to achieve terminal hip extension/full upright stance Patient/Family Education: 1. Instructed patient in roles of therapy 2. Educated on (R) LE WBAT 3. Facilitated mobility as noted above with cues for deep breathing and education that anticipation of pain is sometimes worse than the pain itself DME: facility to assist Session concluded with patient resting in bed, immediate needs met, call light in reach. Patient educated to have nursing assistance with all mobility at this time. Communication: with bedside RN pre- and post-session regarding patient status 6 Clicks Basic Mobility PT Date Time Difficulty turning over in bed Difficulty sitting down and standing up from a chair with arms Difficulty moving from lying on back to sitting on the side of the bed Help from another person moving to and from bed to a chair Help from another person to walk in hospital room Help from another person climbing 3-5 steps with a railing PT 6 Clicks Score 01/06/2022 1130 2 1 2 1 1 1 8 6 Click Score Guidelines: 1 - Unable = Total/Dependent Assist 2 - A lot = Max/Moderate Assist 3 - A little = Minimum/Contact Guard Assist/Supervision 4 - Non = Modified [place]/Independent Progressive Mobility Level: Level 4 Patient Behavior Goal to Advance to Next Level of Activity Level 0 Obtunded, unable to attend Passive [id number] exercises in bed Passive positioning and elevation of extremities Level 1 Attends Passive transfer from bed to chair Participates in active and/or passive exercises in bed or chair Level 2 Attends and achieved Level 1 Sit Upright and dangle legs over the edge of bed or chair Passive transfer from bed to chair Level 3 Attends and achieved Level 2 Perform [id number] Static standing at bedside Level 4 Attends and achieved Level 3 Standing activities Active transferring from bed to chair Gait training ASSESSMENT: Patient with increased tolerance to upright this session, able to sit edge of bed for 20 minutes and attempt standing however was limited by pain. Continue to recommend further therapy services in a Assisted Setting once medically cleared. Will continue to follow patient while in hospital as appropriate. GOALS (to be achieved by hospital discharge): all goals ongoing, progressing as expected 1. Patient to achieve acceptable level of pain control to participate in Therapy sessions. 2. Patient to improve bed mobility to???mod A 3. Patient to demonstrate sit to stand transfer to/from multi-level surface???mod A with RW??? 4. Patient to ambulate???10 feet with RW and mod A??? 5. Patient to???transfer EOB <> bedside chair with RW and mod A? 6. Patient to demonstrate appropriate stamina and balance to attain above functional goals wit (more content not included)...[employer] 01-06-2022 Consult note* Martha Arrington, OT - 01/06/2022 12:05 PM EDT OCCUPATIONAL THERAPY PROGRESS SUMMARY Patient seen from 1113 to 1201 on 7B unit for 44 minute treatment. SUBJECTIVE: Patient Subjective/Goals Were you taught to lie in school? (patient joking with therapists when stated she looked good sitting on the edge of the bed. ) OBJECTIVE: Pain: unrated pain in R LE Pain Relief Interventions Implemented: Positioning and Rest Appearance/Behavior: 2L O2 via NC, hep lock IV, R LE aquacel dressing reinforced with ABD pad, slight discharge noted on pad Cognition: alert and oriented x3 with increased time, follows one step commands consistently UE Status: Not formally tested, observed to be grossly WFL for completion of ADLs Self Care: Assistance Level NA Dep Max Mod Min CG CS DS GA I Set-Up Cues Comment Feeding x cues for upright posture and small sips to drink water Grooming/ Hygiene x Bathing: Upper Body x Bathing: Lower Body x Dressing: Upper Body x don gown around back Dressing: Lower Body x don socks Toileting x dependent for beata care for small amount of BM Toilet Transfers x Bed Transfer x2 Max A x2 sit to stand, unable to achieve full upright stance. Patient defers transfer attempts to chair following. Mod ax2 to scoot hips toward HOB in three trials Bed Mobility x2 performed rolling several times for bed fournier placement/removal, chux pad replacementmod A . supine to sit with increased time and cues to perform max A x2. Sat EOB 20 min edge of bed. BP 1101-125/47, denied orthostatic symptoms. O2 sats 100% on 3 L O2 NC, pulse in 70s Max A x2 sit to supine Patient supine in bed at end of session, call light within reach. Endurance for Self Care: Impaired Patient/Family Education: Instructed Patient in roles of therapy. DME: With Patients permission ordered no equipment via [employer] Order. If any questions contact [facility] DME Provider at [phone]. 2 Clicks Daily Activity OT 01/06/2022 Help from another person Eating meals 3 Help from another person taking care of personal grooming 3 Help from another person bathing 2 Help from another person putting on and taking off regular upper body clothing 2 Help from another person putting on and taking off regular lower body clothing 1 Help from another person toileting 1 OT 6 Clicks Score 12 6 Click Score Guidelines: 1 - Unable = Total/Dependent Assist 2 - A lot = Max/Moderate Assist 3 - A little = Minimum/Contact Guard Assist/Supervision 4 - Non = Modified [place]/Independent ASSESSMENT: Recommend further therapy services in a Skilled Rehab Setting once medically cleared. Will continueto follow patient while in hospital as appropriate. Revised Residential Goals: Goals (to be achieved by discharge from acute care): Patient will perform grooming with Minimal assistance Patient will dress upper body with Minimal assistance Patient will perform bed mobility with Moderate assistance x 2 Patient will perform bed transfers with Moderate assistance x 2 Report reduced pain level to allow for participation in ADL/IADL* PLAN: Continue with Plan as per Initial Evaluation. Martha Arrington, YESIKA, OTR/L NA = Not Assessed, I = Independent, GA = Modified Independent, Sup = Supervised, Set up = Physical Assistance for Set-up Only, Min = Minimal Assistance, Mod = Moderate Assistance, Max = Max assistance; Dep = Dependent; AROM = Active Range of Motion;PROM=Passive Rangeof Motion; MMT = Manual Muscle Test; Shld= Shoulder; Add = Adduction; Abd = Abduction [id number] Consult note* Becca Nolan, PT - 01/06/2022 12:04 PM EDT PHYSICAL THERAPY PROGRESS SUMMARY Patient seen on unit: 7B for 44 minutes billable treatment time including therapeutic activity. Co-treatment with OT for maximal patient participation, safety, and mobility progression. Time in: 1113 Time out: 1201 Precautions: High fall risk per nursing assessment (R) LE WBAT SUBJECTIVE: Patient Subjective: I feel like I need to go regarding having a bowel movement. Son at bedside but left room during session. OBJECTIVE: Appearance: resting in bed, aquacel dressing (R) hip reinforced with ABD pad with evidence of oozing. (R) LE post-op edema. Behavior: alert, pleasant, cooperative, intermittent crying out in pain, soft-spoken. Pain: Site/Location: (L) hip/leg Pain Scale: no rating/10 Pain Relief Interventions Implemented: gentle mobility, emotional support/reassurance, education, repositioning Mobility NA Dep Max Mod Min CG CS DS GA I Comment Roll to right sidelying x Very minimal roll to right for straightening of chux Roll to left sidelying x CHIEF MEDICAL DIRECTOR initially then guiding hand to bed rail. Assist with RLE. Total assistfor rear pericares for small smear. Supine to sit x2 -Significant time with cues/assist for patient to move her legs toward edge of bedand shift trunk prior to maxA x2 to attain upright sitting. -able to sit for 20 minutes edge of bed with BP 1101-125/47, denied orthostatic symptoms. O2 sats 100% on 3 L O2 NC, pulse in 70s Scooting x2 -maxA to scoot forward to get feet on the floor -modAx2 to scoot toward head of bed. Patient putting forth good effort Sit<>stand x2 Cues to push up from bed then reach for walker, limited by pain and unable to achieve full upright stance Sit to Supine x2 Assist at trunk and BLE Therapeutic Exercise: encouraged (B) ankle pumps with gentle overpressure on (R) Seated long arc quads on (L), attempting gentle (R) knee ROM however limited by pain Cues to maintain breathing throughout mobility and exercises Sitting Balance: Static:fair - bracing with UE due to pain Dynamic:fair - occasional retropulsive lean with cues to maintain center of balance Standing Balance: Static: poor - unable to achieve terminal hip extension/full upright stance Patient/Family Education: 1. Instructed patient in roles of therapy 2. Educated on (R) LE WBAT 3. Facilitated mobility as noted above with cues for deep breathing and education that anticipationof pain is sometimes worse than the pain itself DME: facility to assist Session concluded with patient resting in bed, immediate needs met, call light in reach. Patient educated to have nursing assistance with all mobility at this time. Communication: with bedside RN pre- and post-session regarding patient status 6 Clicks Basic Mobility PT Date Time Difficulty turning over in bed Difficulty sitting down and standing up from a chair with arms Difficulty moving from lying on back to sitting on the side of the bed Help from another personmoving to and from bed to a chair Help from another person to walk in hospital room Help from another person climbing 3-5 steps with a railing PT 6 Clicks Score 01/06/2022 1130 2 1 2 1 1 1 8 6 Click Score Guidelines: 1 - Unable = Total/Dependent Assist 2 - A lot = Max/Moderate Assist 3 - A little = Minimum/Contact Guard Assist/Supervision 4 - Non = Modified [place]/Independent Progressive Mobility Level: Level 4 Patient Behavior Goal to Advance to Next Level of Activity Level 0 Obtunded, unable to attend Passive [id number] exercises in bed Passive positioning and elevation of extremities Level 1 Attends Passive transfer from bed to chair Participates in active and/or passive exercises in bed or chair Level 2 Attends and achieved Level 1 Sit Upright and dangle legs over the edge of bed or chair Passive transfer from bed to chair Level 3 Attends and achieved Level 2 Perform [id number] Static standing at bedside Level 4 Attends and achieved Level 3 Standing activities Active transferring from bed to chair Gait training ASSESSMENT: Patient with increased tolerance to upright this session, able to sit edge of bed for 20 minutes and attempt standing however was limited by pain. Continue to recommend further therapy services in a Assisted Setting once medically cleared. Will continue to follow patient while in hospital asappropriate. GOALS (to be achieved by hospital discharge): all goals ongoing, progressing as expected 1. Patient to achieve acceptable level of pain control to participate in Therapy sessions. 2. Patient to improve bed mobility to mod A 3. Patient to demonstrate sit to stand transfer to/from multi-level surface mod A with RW 4. Patient to ambulate 10 feet with RW and mod A 5. Patient to transfer EOB <> bedside chair with RW and mod A 6. Patient to demonstrate appropriate stamina and balance to attain above functional goals without LOB or SOB. PLAN: continue per initial evaluation Increase independence with bed mobility, dynamic sitting tolerance, sit<>stand, (R) LE ROM/strenghtening Becca Nolan (Ellie), PT, DPT Pager: [phone] NA = Not Assessed, I = Independent, GA = Modified Independent, Sup = Supervised, Set up = Physical Assistance for Set-up Only, Min = Minimal Assistance, Mod = Moderate Assistance, Max = Maximal assistance; Dep = Dependent; AROM = Active Range of Motion; PROM = Passive Range of Motion; MMT = Manual Muscle Test [id number] Note* Care Plan Note - Shakira Johnson RN - 01/06/2022 7:53 AM EDT Problem: Routine Care: Goal: Patient care will be managed and maintained throughout hospital stay per unit specific routine care procedure Outcome: Progressing Note: Patient rounded on per hourly rounding unit protocol. Call light within reach, siderails in place, encouraged to call for assistance when needed. Problem: Impaired Mobility: Goal: Ability to tolerate increased activity will improve and be maintained Outcome: Progressing Note: PT/OT consults Problem: Activity Intolerance: Goal: Demonstrate progressive return to baseline activity level Outcome: Progressing Problem: VTE Prophylaxis: Goal: Will be free of DVT Outcome: Progressing Problem: Fluid and Electrolyte Imbalance: Goal: Adequate fluid and electrolyte balance will be achieved and maintained Outcome: Progressing Problem: Anxiety: Goal: Level of anxiety will decrease Outcome: Progressing Problem: Acute Pain: Goal: Ability to identify pain intensity on a pain scale and rate it consistently will be achieved and maintained Outcome: Progressing Note: Pain managed through scheduled and PRN medications. Patient able to rate pain using numeric pain scale. Problem: Safety: Goal: Patient will remain free of falls during hospital stay Outcome: Progressing Problem: Discharge Planning: Goal: Discharge needs of the adult patient will be met Outcome: Progressing [id number] NoteOrthopaedic Surgery - Plan of Care Note Paged re saturated aquacel dressing. Replaced with new dressing - dressing c/d/i - incisions healing appropriately - SILT - Foot warm and well perfused - Wiggles toes Elvira Love MD (Lola) Orthopaedic Surgery, PGY-1 [facility]06-04-2022 Note* Treatment Plan Note - Elvira Love MD - 01/05/2022 9:42 AM EDT Orthopaedic Surgery - Plan of Care Note Paged re saturated aquacel dressing. Replaced with new dressing - dressing c/d/i - incisions healing appropriately - SILT - Foot warm and well perfused - Wiggles toes Elvira (Ailyn) MD Ivan Orthopaedic Surgery, PGY-6 [id number] Note* Care Plan Note - Adolfo Yu RN - 01/05/2022 7:45 AM EDT Problem: Routine Care: Goal: Patient care will be managed and maintained throughout hospital stay per unit specific routine care procedure Outcome: Progressing Problem: Impaired Mobility: Goal: Ability to tolerate increased activity will improve and be maintained Outcome: Progressing Problem: Activity Intolerance: Goal: Demonstrate progressive return to baseline activity level Outcome: Progressing Problem: VTE Prophylaxis: Goal: Will be free of DVT Outcome: Progressing Note: Lovenox BID Problem: Fluid and Electrolyte Imbalance: Goal: Adequate fluid and electrolyte balance will be achieved and maintained Outcome: Progressing Problem: Anxiety: Goal: Level of anxiety will decrease Outcome: Progressing Problem: Acute Pain: Goal: Ability to identify pain intensity on a pain scale and rate it consistently will be achieved and maintained Outcome: Progressing Problem: Safety: Goal: Patient will remain free of falls during hospital stay Outcome: Progressing Problem: Discharge Planning: Goal: Discharge needs of the adult patient will be met Outcome: Progressing [id number] NoteOCCUPATIONAL THERAPY PROGRESS SUMMARY Patient seen from 1440 to 1510 on 7B unit for 30 minute cotreatment.with PT for skilled need to safely mobilize and manage medically SUBJECTIVE: Patient Subjective/Goals I remember you- your the therapist OBJECTIVE: Pain: Site(s): right thigh 6/10 Pain Relief Interventions Implemented: Positioning Appearance/Behavior: increased level of alertness compared to evaluation; supine in bed; prefers eyes closed; Aquacell to right thigh; copious drainage after ROM/Sitting; O2 Cognition: grossly oriented x 3; follows simple commands with repetition UE Status: BUE AAROM for overhead reach x 10 reps Self Care: Assistance Level NA Dep Max Mod Min CG CS DS GA I Set-Up Cues Comment Feeding X X X To manage cup/straw to mouth Grooming/ Hygiene X X Bathing: Upper Body X Bathing: Lower Body X Dressing: Upper Body X To change hospital gown Dressing: Lower Body X Toileting X Cortes removed prior to tx Toilet Transfers X Bed Transfer X Bed Mobility X 2 Rolling side to side for linen change at end of tx Supine <> sit Dep x 2 Static sitting EOB ~5 min with with resistance to sit on right hip; max cues for head/eyes up/open; initially able to talk with therapist; this OT noted RUE no longer resisting on bed and eyes with right upward gaze; at the moment therapists initiate return to supine, pt begins screaming at therapists * See BP's below BP: Nnyvrq=726/43 Sitting=92/44 After returned to rftpeg=073/45 Endurance for Self Care: Fair Patient/Family Education: Instructed Patient/family in roles of therapy. With pt permission able to talk with family regarding pt performance this date 6 Clicks Daily Activity OT 01/04/2022 Help from another person Eating meals 3 Help from another person taking care of personal grooming 2 Help from another person bathing 1 Help from another person putting on and taking off regular upper body clothing 2 Help from another person putting on and taking off regular lower body clothing 1 Help from another person toileting 1 OT 6 Clicks Score 10 6 Click Score Guidelines: 1 - Unable = Total/Dependent Assist 2 - A lot = Max/Moderate Assist 3 - A little = Minimum/Contact Guard Assist/Supervision 4 - Non = Modified [place]/Independent ASSESSMENT: Pt with minimal improvement in activity tolerance this date; improved level of alertness Recommend further therapy services in a Skilled Rehab Setting once medically cleared. Will continue to follow patient while in hospital as appropriate. Goals (to be achieved by discharge from acute care): Patient will feed self with Minimal assistance MET Patient will perform grooming with Minimal assistance Patient will dress upper body with Minimal assistance Patient will perform bed mobility with Moderate assistance x 2 Patient will perform bed transfers with Moderate assistance x 2 Report reduced pain level to allow for participation in ADL/IADL* PLAN: Continue with Plan as per Initial Evaluation. Cecelia More OT/L b. [phone] NA = Not Assessed, I = Independent, GA = Modified Independent, Sup = Supervised, Set up = Physical Assistance for Set-up Only, Min = Minimal Assistance, Mod = Moderate Assistance, Max = Max assistance; Dep = Dependent; AROM = Active Range of Motion;PROM=Passive Range of Motion; MMT = Manual Muscle Test; Shld= Shoulder; Add = Adduction; Abd = AbductionThe [facility] SW met with pt and son Kevin at bedside. Family requesting referrals be sent to [facility] and [facility]. SW sent referrals this date. Pt will require pre-cert. No weekend DC. SW will continue to follow. Radha Cox [facility] [phone]06-03-2022 NotePHYSICAL THERAPY PROGRESS SUMMARY Patient seen from 1440 to 1510 on 7B unit for 30 minute treatment. SUBJECTIVE: Patient Subjective/Goals: I think it's just being stubborn. OBJECTIVE: Appearance: pt in bed up entering room w/ O2 via NC. Dressing intact to R hip w/ drainage. Notified staff Behavior: alert, slow to respond, cooperative, oriented to self, hospital and month w/ choice of 2 Pain: Site/Location: R LE ; Pain Scale: 6/10 Pain Relief Interventions Implemented: Positioning and Relaxation Training therex-AP, QS (poor RLE), assisted hip abd RLE 1x10 Assisted HS 1x5 Mobility NA Dep Max Mod Min CG CS DS GA I Comment Roll to right sidelying x To provide pt w/ clean bed linen Roll to left sidelying x To provide pt w/ clean bed linen Supine to sit x2 W/ HOB elevated Transfers x Unable to progress d/t pt became unresponsive w/ sitting EOB *See functional endurance for BP Sit to/from stand x Unable to attempt d/t pt became unresponsive Sit to Supine x2 Functional Endurance: impaired BP: Zftsrm=299/43 Sitting=92/44 After returned to nhlgta=198/45 Sitting Balance: Static:poor Dynamic:poor *Pt static sits EOB ~5 minutes. Pt initially alert and tolerating sitting although tends to have a heavy L lean and resists attempts to attain midline posture. After several minutes of sitting EOB pt becomes unresponsive to OT's verbal cues and display a R upward gaze. Pt quickly returned to supine w/ pt also becoming alert. Standing Balance: Static: n/a Dynamic: n/a Patient/Family Education: Patient instructed in calling for nursing assist for any additional needs. Pt encouraged to have HOB upright during the day. Patient up in bed with call light in reach. ??? DME: With Patients permission ordered no equipment via [employer] Order. If any questions contact [facility] DME Provider at [phone]. 6 Clicks Basic Mobility PT 01/04/2022 Difficulty turning over in bed 2 Difficulty sitting down and standing up from a chair with arms 1 Difficulty moving from lying on back to sitting on the side of the bed 1 Help from another person moving to and from bed to a chair 1 Help from another person to walk in hospital room 1 Help from another person climbing 3-5 steps with a railing 1 PT 6 Clicks Score 7 6 Click Score Guidelines: 1 - Total = Requires total assistance, or cannot do at all. 2 - A lot = Requires a lot of help (maximun to moderate assistance) Can use assistive devices. 3 - A little = Requires a little help (supervision, minimal assistance) Can use assistive devices. 4 - None = Does not require any help and does the activity independently. Can use assistive devices. ??? ASSESSMENT: Pt is functionally limited by pain,decrease strength and stamina. Pt also w/ decrease tolerance to sitting upright, becoming unresponsive but recovers once returned to supine. Pt will need further inpt therapies in a skilled setting when medically ready. Goals (to be achieved by discharge from acute care): ONGOING All goals to be achieved while WBAT (R) LE 1. Patient to achieve acceptable level of pain control to participate in Therapy sessions. 2. Patient to improve bed mobility to mod A 3. Patient to demonstrate sit to stand transfer to/from multi-level surface mod A with RW 4. Patient to ambulate 10 feet with RW and mod A 5. Patient to transfer EOB <> bedside chair with RW and mod A 6. Patient to demonstrate appropriate stamina and balance to attain above functional goals without LOB or SOB. PLAN: Will follow established Plan of Care Patricia ANDREW Beeper #[phone] NA = Not Assessed, I = Independent, GA = Modified Independent, Sup = Supervised, Set up = Physical Assistance for Set-up Only, Min = Minimal Assistance, Mod = Moderate Assistance, Max = Maximal assistance; Dep = Dependent; AROM = Active Range of Motion; PROM = Passive Range of Motion; MMT = Manual Muscle TestThe [email or web address] [id number] Consult note* Cecelia More, OT - 01/04/2022 4:41 PM EDT OCCUPATIONAL THERAPY PROGRESS SUMMARY Patient seen from 1440 to 1510 on 7B unit for 30 minute cotreatment.with PT for skilled need to safely mobilize and manage medically SUBJECTIVE: Patient Subjective/Goals I remember you- your the therapist OBJECTIVE: Pain: Site(s): right thigh 01/11 Pain Relief Interventions Implemented: Positioning Appearance/Behavior: increased level of alertness compared to evaluation; supine in bed; prefers eyes closed; Aquacell to right thigh; copious drainage after ROM/Sitting; O2 Cognition: grossly oriented x 3; follows simple commands with repetition UE Status: BUE AAROM for overhead reach x 10 reps Self Care: Assistance Level NA Dep Max Mod Min CG CS DS GA I Set-Up Cues Comment Feeding X X X To manage cup/straw to mouth Grooming/ Hygiene X X Bathing: Upper Body X Bathing: Lower Body X Dressing: Upper Body X To change hospital gown Dressing: Lower Body X Toileting X Cortes removed prior to tx Toilet Transfers X Bed Transfer X Bed Mobility X 2 Rolling side to side for linen change at end of tx Supine <> sit Dep x 2 Static sitting EOB ~5 min with with resistance to sit on right hip; max cues for head/eyes up/open;initially able to talk with therapist; this OT noted RUE no longer resisting on bed and eyes with right upward gaze; at the moment therapists initiate return to supine, pt begins screaming at therapists * See BP's below BP: Vkcceq=034/43 Sitting=92/44 After returned to rpwcbi=184/45 Endurance for Self Care: Fair Patient/Family Education: Instructed Patient/family in roles of therapy. With pt permission able to talk with family regarding pt performance this date 6 Clicks Daily Activity OT 01/04/2022 Help from another person Eating meals 3 Help from another person taking care of personal grooming 2 Help from another person bathing 1 Help from another person putting on and taking off regular upper body clothing 2 Help from another person putting on and taking off regular lower body clothing 1 Help from another person toileting 1 OT 6 Clicks Score 10 6 Click Score Guidelines: 1 - Unable = Total/Dependent Assist 2 - A lot = Max/Moderate Assist 3 - A little = Minimum/Contact Guard Assist/Supervision 4 - Non = Modified [place]/Independent ASSESSMENT: Pt with minimal improvement in activity tolerance this date; improved level of alertness Recommend further therapy services in a Skilled Rehab Setting once medically cleared. Will continueto follow patient while in hospital as appropriate. Goals (to be achieved by discharge from acute care): Patient will feed self with Minimal assistance MET Patient will perform grooming with Minimal assistance Patient will dress upper body with Minimal assistance Patient will perform bed mobility with Moderate assistance x 2 Patient will perform bed transfers with Moderate assistance x 2 Report reduced pain level to allow for participation in ADL/IADL* PLAN: Continue with Plan as per Initial Evaluation. Cecelia More OT/L b. [phone] NA = Not Assessed, I = Independent, GA = Modified Independent, Sup = Supervised, Set up = Physical Assistance for Set-up Only, Min = Minimal Assistance, Mod = Moderate Assistance, Max = Max assistance; Dep = Dependent; AROM = Active Range of Motion;PROM=Passive Rangeof Motion; MMT = Manual Muscle Test; Shld= Shoulder; Add = Adduction; Abd = Abduction [id number] Note* Care Plan Note - Mandy Boo RN - 01/04/2022 4:36 PM EDT Problem: Routine Care: Goal: Patient care will be managed and maintained throughout hospital stay per unit specific routine care procedure Outcome: Progressing Rounding per floor protocol, call light in reach Problem: Impaired Mobility: Goal: Ability to tolerate increased activity will improve and be maintained Outcome: Progressing Problem: Activity Intolerance: Goal: Demonstrate progressive return to baseline activity level Outcome: Progressing Problem: VTE Prophylaxis: Goal: Will be free of DVT Outcome: Progressing SCDs, lovenox Problem: Fluid and Electrolyte Imbalance: Goal: Adequate fluid and electrolyte balance will be achieved and maintained Outcome: Progressing Problem: Anxiety: Goal: Level of anxiety will decrease Outcome: Progressing Problem: Acute Pain: Goal: Ability to identify pain intensity on a pain scale and rate it consistently will be achieved and maintained Outcome: Progressing Problem: Safety: Goal: Patient will remain free of falls during hospital stay Outcome: Progressing Educated pt on fall risk and prevention Problem: Discharge Planning: Goal: Discharge needs of the adult patient will be met Outcome: Progressing [id number] Consult note* Patricia Matta - 01/04/2022 3:16 PM EDT PHYSICAL THERAPY PROGRESS SUMMARY Patient seen from 1440 to 1510 on 7B unit for 30 minute treatment. SUBJECTIVE: Patient Subjective/Goals: I think it's just being stubborn. OBJECTIVE: Appearance: pt in bed up entering room w/ O2 via NC. Dressing intact to R hip w/ drainage. Notifiedstaff Behavior: alert, slow to respond, cooperative, oriented to self, hospital and month w/ choice of 2 Pain: Site/Location: R LE ; Pain Scale: 6/10 Pain Relief Interventions Implemented: Positioning and Relaxation Training therex-AP, QS (poor RLE), assisted hip abd RLE 1x10 Assisted HS 1x5 Mobility NA Dep Max Mod Min CG CS DS GA I Comment Roll to right sidelying x To provide pt w/ clean bed linen Roll to left sidelying x To provide pt w/ clean bed linen Supine to sit x2 W/ HOB elevated Transfers x Unable to progress d/t pt became unresponsive w/ sitting EOB *See functional endurance for BP Sit to/from stand x Unable to attempt d/t pt became unresponsive Sit to Supine x2 Functional Endurance: impaired BP: Bifesb=232/43 Sitting=92/44 After returned to oevxuw=812/45 Sitting Balance: Static:poor Dynamic:poor *Pt static sits EOB ~5 minutes. Pt initially alert and tolerating sitting although tends to have a heavy L lean and resists attempts to attain midline posture. After several minutes of sitting EOB ptbecomes unresponsive to OT's verbal cues and display a R upward gaze. Pt quickly returned to supinew/ pt also becoming alert. Standing Balance: Static: n/a Dynamic: n/a Patient/Family Education: Patient instructed in calling for nursing assist for any additional needs. Pt encouraged to have HOB upright during the day. Patient up in bed with call light in reach. DME: With Patients permission ordered no equipment via [employer] Order. If any questions contact [facility] DME Provider at [phone]. 6 Clicks Basic Mobility PT 01/04/2022 Difficulty turning over in bed 2 Difficulty sitting down and standing up from a chair with arms 1 Difficulty moving from lying on back to sitting on the side of the bed 1 Help from another person moving to and from bed to a chair 1 Help from another person to walk in hospital room 1 Help from another person climbing 3-5 steps with a railing 1 PT 6 Clicks Score 7 6 Click Score Guidelines: 1 - Total = Requires total assistance, or cannot do at all. 2 - A lot = Requires a lot of help (maximun to moderate assistance) Can use assistive devices. 3 - A little = Requires a little help (supervision, minimal assistance) Can use assistive devices. 4 - None = Does not require any help and does the activity independently. Can use assistive devices. ASSESSMENT: Pt is functionally limited by pain,decrease strength and stamina. Pt also w/ decrease tolerance to sitting upright, becoming unresponsive but recovers once returned to supine. Pt will need further inpt therapies in a skilled setting when medically ready. Goals (to be achieved by discharge from acute care): ONGOING All goals to be achieved while WBAT (R) LE 1. Patient to achieve acceptable level of pain control to participate in Therapy sessions. 2. Patient to improve bed mobility to mod A 3. Patient to demonstrate sit to stand transfer to/from multi-level surface mod A with RW 4. Patient to ambulate 10 feet with RW and mod A 5. Patient to transfer EOB <> bedside chair with RW and mod A 6. Patient to demonstrate appropriate stamina and balance to attain above functional goals without LOB or SOB. PLAN: Will follow established Plan of Care Patricia ANDREW Beeper #[phone] NA = Not Assessed, I = Independent, GA = Modified Independent, Sup = Supervised, Set up = Physical Assistance for Set-up Only, Min = Minimal Assistance, Mod = Moderate Assistance, Max = Maximal assistance; Dep = Dependent; AROM = Active Range of Motion; PROM = Passive Range of Motion; MMT = Manual Muscle Test [id number] NoteOccupational Therapy Note Duplicate referral - pt on program wit recommendation for SNF Cecelia More OT/L b. [phone] [id number] NoteORTHOPAEDIC SURGERY PROGRESS NOTE ASSESSMENT AND PLAN: 86 year old year old female who is s/p CMN with Dr. Sher on 01/02/22. - Pain control with PO and IV for Breakthrough - Antibiotics: Ancef periop - Encouraged IS - Weight bearing status: WBAT RLE - Aquacel for 7 dys - Anticoagulation: Per trauma, recommend 6 weeks - Dispo: Per trauma surgery, F/U with Dr. Sher in 2 weeks -Orthopaedic surgery will follow peripherally while in house, but will not routinely see the patient to assess for acute pathology. Please feel welcome to page at any time with questions or concerns for repeat evaluation / assistance with management. SUBJECTIVE: Somnolent this AM OBJECTIVE: Vitals: 01/04/22 0501 BP: 117/35 Pulse: 84 Resp: 16 Temp: 98.2 ???F (36.8 ???C) SpO2: 98% Intake/Output Summary (Last 24 hours) at 01/04/2022 0649 Last data filed at 01/04/2022 0511 Gross per 24 hour Intake 295.83 ml Output 900 ml Net -604.17 ml General: Alert and oriented, resting in bed, in no acute distress Right Lower Extremity: Dressing C/D/I 5/5 Gsc, TA, EHL SILT LFCN, PFCN, Obturator, Saphenous, Sural, DP, SP, Plantar foot warm, well-perfused Compartments soft and compressible (all compartments) CBC/PT/INR WBC RBC Hgb Hct MCV RDW Plt PT aPTT INR 01/04/22 0148 12.2 2.84 8.6 24.7 87 14.3 76 01/03/22 1357 11.0 3.21 9.8 27.8 86 14.2 87 01/03/22 0312 11.5 2.18 6.5 19.6 90 13.4 104 01/03/22 0222 11.1 2.16 6.7 19.3 89 13.1 108 WBC/Diff None Basic Metabolic Panel Na K Cl CO2 Gap Glu BUN Cr Ca Mg PO4 01/04/22147 132 4.2 Comment: Hemolysis present 100 22 14 150 28 1.09 8.1 01/03/22 0222 1.7 01/03/22 0222 3.8 01/03/22221 133 4.0 101 22 14 138 20 1.05 8.2 [place] (Ailyn) MD Ivan Orthopaedic Surgery, PGY-1 [facility]06-03-2022 Consult note* Cecelia More OT - 01/04/2022 7:46 AM EDTAssociated Order(s): IP OCCUPATIONAL THERAPY SERVICE REQUEST Occupational Therapy Note Duplicate referral - pt on program wit recommendation for SNF Cecelia More OT/L b. [phone] [id number] NoteOCCUPATIONAL THERAPY INITIAL EVALUATION Patient seen from 911 to 951 on 7B unit for 40 minutes.eval and tx Reason for Admit: 86 yo s/p fall from standing Diagnosis/Injuries include: Right femoral shaft fx OR on 01/02/22 for IM nail right femur Precautions/Activity Order: WBAT RLE; falls; act as dino Past Medical and Surgical History: PMH: History reviewed. No pertinent past medical history. (Per family) HTN with change in BP meds last month; mini strokes SUBJECTIVE: Patient Subjective: Oh, Oh that hurts Patient Identified Goal(s): to no hurt Home Living Situation Prior Functional Status: Independent Living self care; Assist for IADL's Assistance Available at Home: son lives next door to patient and assists with household tasks/errand/shopping Patient lives in a 1 story home 3 stairs to enter.with rail Full Bathroom on 1 level Bedroom on 1 level. Equipment available at home: RW, cane, shower bench OBJECTIVE: Patient Identification: patient verbalizing his/her name and date of . Risks and benefits of occupational therapy: Patient informed of risks and benefits of treatment Appearance: Frail, Oxygen, IV and Cortes Alertness: Lethargic Affect: flat Cooperation/Behavior: Pleasant and cooperative; confused Communication: demonstrates some word finding difficulties Pain: Pain ratin/10, Location: right thigh/hip Pain Relief Interventions Implemented: Positioning Self Care: Assistance Level Dep Max Mod Min CG CS DS GA I Set-Up Comment Feeding X To manage drinks to mouth with straw Grooming/Hygiene X BUE ROM rigid/guarded Bathing:UB X Bathing:LB X Dressing:UB X Dressing: LB X Toileting X Cortes in place Transfers/Bed Mobility: pt had received 1 unit of blood prior to mobility Assistance Level Dep Max Mod Min CG CS DS GA I Set-Up Comment Toilet Transfers Bed Transfers deferred Bed Mobility X 2 Supine to sit EOB; once sitting pt increasingly less interactive (<2 min) and therapist notes a right upward gaze; returned to supine dep assist x 2; pt immediately responsive to therapists. Pt sat up in chair position in bed with the below vitals taken: HOB 70* > BP 87/32; O2 sat 99 HR 88 HOB 50* > BP 89/27 HOB 25* > BP 97/30 MAP 46 Nursing aware and present Endurance for Self Care: Poor Static Sitting Balance: Fair Dynamic Sitting Balance: N/T UE Motor: BUE AAROM grossly WFL. Pt with right elbow weakness requiring assist to achieve full ext which pt reports is baseline Vision/Perception: N/T Cognition: Orientation: Oriented to person, place and month(given 2 choices) Follows Commands: one step commands, requires occasional repeat of directions and easily distracted Attention: Impaired and easily distracted during task Memory: able to recall month from start of session Problem Solving: Needs further assessment Safety/Judgement: lacks insight into impairments/expectations of mobility Sequencing: NT Patient/Family Education: pt and family instructed in roles, goals, treatment plan: demonstrated good verbal understanding Instructed in d/c recommendations for SNF Patient up in bed with call light in reach. ??? 6 Clicks Daily Activity OT 01/03/2022 Help from another person Eating meals 2 Help from another person taking care of personal grooming 2 Help from another person bathing 1 Help from another person putting on and taking off regular upper body clothing 1 Help from another person putting on and taking off regular lower body clothing 1 Help from another person toileting 1 OT 6 Clicks Score 8 6 Click Score Guidelines: 1 - Unable = Total/Dependent Assist 2 - A lot = Max/Moderate Assist 3 - A little = Minimum/Contact Guard Assist/Supervision 4 - Non = Modified [place]/Independent ASSESSMENT: Recommend further therapy services in a Skilled Rehab Setting once medically cleared. Will continue to follow patient while in hospital as appropriate. Rehabilitation Potential: Fair Problem List: decreased ADLs, impaired upper extremity motor function, decreased endurance, decreased functional transfers/mobility, impaired balance, decreased functional activity tolerance and increased pain Goals (to be achieved by discharge from acute care): Patient will feed self with Minimal assistance Patient will perform grooming with Minimal assistance Patient will dress upper body with Minimal assistance Patient will perform bed mobility with Moderate assistance x 2 Patient will perform bed transfers with Moderate assistance x 2 Report reduced pain level to allow for participation in ADL/IADL PLAN: Toribio Betts will be seen 1-3 times a week. Treatment to include: Functional AROM/Strengthening, functional mobility training, ADL retraining, functional endurance activities, home management retraining, adaptive equipment / compensatory strategy training and patient / family education and discharge planning able to discuss the evaluation (more content not included)...[employer] [id number] Note* Care Plan Note - Mandy Boo RN - 01/03/2022 10:38 AM EDT Problem: Routine Care: Goal: Patient care will be managed and maintained throughout hospital stay per unit specific routine care procedure Outcome: Progressing Rounding per floor protocol, call light in reach Problem: Impaired Mobility: Goal: Ability to tolerate increased activity will improve and be maintained Outcome: Progressing PT/OT Problem: Activity Intolerance: Goal: Demonstrate progressive return to baseline activity level Outcome: Progressing PT/OT Problem: VTE Prophylaxis: Goal: Will be free of DVT Outcome: Progressing SCDs, lovenox Problem: Fluid and Electrolyte Imbalance: Goal: Adequate fluid and electrolyte balance will be achieved and maintained Outcome: Progressing Problem: Anxiety: Goal: Level of anxiety will decrease Outcome: Progressing Problem: Acute Pain: Goal: Ability to identify pain intensity on a pain scale and rate it consistently will be achieved and maintained Outcome: Progressing Problem: Safety: Goal: Patient will remain free of falls during hospital stay Outcome: Progressing Educated pt on fall risk and prevention Problem: Discharge Planning: Goal: Discharge needs of the adult patient will be met Outcome: Progressing [id number] Consult note* Cecelia More OT - 01/03/2022 10:28 AM EDT Associated Order(s): IP OCCUPATIONAL THERAPY SERVICE REQUEST OCCUPATIONAL THERAPY INITIAL EVALUATION Patient seen from 911 to 951 on 7B unit for 40 minutes.eval and tx Reason for Admit: 86 yo s/p fall from standing Diagnosis/Injuries include: Right femoral shaft fx OR on 01/02/22 for IM nail right femur Precautions/Activity Order: WBAT RLE; falls; act as dino Past Medical and Surgical History: PMH: History reviewed. No pertinent past medical history. (Per family) HTN with change in BP meds last month; mini strokes SUBJECTIVE: Patient Subjective: Oh, Oh that hurts Patient Identified Goal(s): to no hurt Home Living Situation Prior Functional Status: Independent Living self care; Assist for IADL's Assistance Available at Home: son lives next door to patient and assists with household tasks/errand/shopping Patient lives in a 1 story home 3 stairs to enter.with rail Full Bathroom on 1 level Bedroom on 1 level. Equipment available at home: RW, cane, shower bench OBJECTIVE: Patient Identification: patient verbalizing his/her name and date of . Risks and benefits of occupational therapy: Patient informed of risks and benefits of treatment Appearance: Frail, Oxygen, IV and Cortes Alertness: Lethargic Affect: flat Cooperation/Behavior: Pleasant and cooperative; confused Communication: demonstrates some word finding difficulties Pain: Pain ratin/10, Location: right thigh/hip Pain Relief Interventions Implemented: Positioning Self Care: Assistance Level Dep Max Mod Min CG CS DS GA I Set-Up Comment Feeding X To manage drinks to mouth with straw Grooming/Hygiene X BUE ROM rigid/guarded Bathing:UB X Bathing:LB X Dressing:UB X Dressing: LB X Toileting X [place] in place Transfers/Bed Mobility: pt had received 1 unit of blood prior to mobility Assistance Level Dep Max Mod Min CG CS DS GA I Set-Up Comment Toilet Transfers Bed Transfers deferred Bed Mobility X 2 Supine to sit EOB; once sitting pt increasingly less interactive (<2 min) and therapist notes a right upward gaze; returned to supine dep assist x 2; pt immediately responsive to therapists. Pt sat up in chair position in bed with the below vitals taken: HOB 70* > BP 87/32; O2 sat 99 HR 88 HOB 50* > BP 89/27 HOB 25* > BP 97/30 MAP 46 Nursing aware and present Endurance for Self Care: Poor Static Sitting Balance: Fair Dynamic Sitting Balance: N/T UE Motor: TONYE GEETA grossly WFL. Pt with right elbow weakness requiring assist to achieve full ext which pt reports is baseline Vision/Perception: N/T Cognition: Orientation: Oriented to person, place and month(given 2 choices) Follows Commands: one step commands, requires occasional repeat of directions and easily distracted Attention: Impaired and easily distracted during task Memory: able to recall month from start of session Problem Solving: Needs further assessment Safety/Judgement: lacks insight into impairments/expectations of mobility Sequencing: NT Patient/Family Education: pt and family instructed in roles, goals, treatment plan: demonstrated good verbal understanding Instructed in d/c recommendations for SNF Patient up in bed with call light in reach. 6 Clicks Daily Activity OT 01/03/2022 Help from another person Eating meals 2 Help from another person taking care of personal grooming 2 Help from another person bathing 1 Help from another person putting on and taking off regular upper body clothing 1 Help from another person putting on and taking off regular lower body clothing 1 Help from another person toileting 1 OT 6 Clicks Score 8 6 Click Score Guidelines: 1 - Unable = Total/Dependent Assist 2 - A lot = Max/Moderate Assist 3 - A little = Minimum/Contact Guard Assist/Supervision 4 - Non = Modified [place]/Independent ASSESSMENT: Recommend further therapy services in a Skilled Rehab Setting once medically cleared. Will continueto follow patient while in hospital as appropriate. Rehabilitation Potential: Fair Problem List: decreased ADLs, impaired upper extremity motor function, decreased endurance, decreased functional transfers/mobility, impaired balance, decreased functional activity tolerance and increased pain Goals (to be achieved by discharge from acute care): Patient will feed self with Minimal assistance Patient will perform grooming with Minimal assistance Patient will dress upper body with Minimal assistance Patient will perform bed mobility with Moderate assistance x 2 Patient will perform bed transfers with Moderate assistance x 2 Report reduced pain level to allow for participation in ADL/IADL PLAN: Toribio Betts will be seen 1-3 times a week. Treatment to include: Functional AROM/Strengthening, functional mobility training, ADL retraining, functional endurance activities, home management retraining, adaptive equipment / compensatory strategy training and patient / family education and discharge planning able to discuss the evaluation findings and treatment plan with the patient/family. The patient/family did not participate in the development of plan and goals. Cecelia More OT/L b. [phone] NA = Not Assessed, I = Independent, GA = Modified Independent, Sup = Supervised, Set up = Physical Assistance for Set-up Only, Min = Minimal Assistance, Mod = Moderate Assistance, Max = Max assistance; Dep = Dependent; AROM = Active Range of Motion;PROM=Passive Rangeof Motion; MMT = Manual Muscle Test; UB = Upper Body; LB = Lower Body [id number] NotePHYSICAL THERAPY ACUTE EVALUATION Referral received, chart reviewed. Patient seen from 9:15 am to 9:53 am on 7B unit for 38 minutes. (eval + treat) Patient seen as co-treatment with occupational therapy secondary to skilled need of 2 therapists to safely mobilize patient. Admit date/time: 01/01/2022 12:44 AM Reason for Admit: 86 yo female admitted s/p fall from standing Diagnosis: (R) femoral shaft fracture (R) hairline fx into the intertrochanteric region Precautions: (R) LE WBAT per brief op note High falls risk Full code Regular 2 GM sodium diet Procedures this admit: 01/01/22 ECG 01/02/22 (R) LE IM nail of femur (Dr. Sher) Past Medical and Surgical History: Cardiac, pulmonary HTN Identification was verified by patient verbalizing his/her name and date of . Risks and Benefits of physical therapy: Patient informed of risks and benefits of treatment SUBJECTIVE: Patient Subjective: ow! 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 0 steps to bedroom/bathroom Assistance available: Son Equipment available: RW, cane, tub bench, grab bars OBJECTIVE: Appearance: Supine in bed Hospital [place] Hep-locked IV Behavior: Awake Soft spoken Difficulty with word finding - per patients son this is baseline Anxious / painful Oriented x self, month (with options), location, but not year (despite options) Follows simple step commands consistently and with cues Pain: Site/Location: (R) LE; Pain Scale: 5 /10 Pain Relief Interventions Implemented: Positioning, Relaxation Training and RN aware and reports patient received medication according to time schedule Passive ROM: (B) LE Grossly WFL throughout despite pain Strength/Active ROM: Unable to formally assess seated EOB due to patient becoming unresponsive Patient able to perform (B) ankle pumps supine Patient able to perform (L) hip/knee flexion without assist supine Patient able to activate muscles for (R) hip/knee flexion but unable to complete partial ROM. Impaired strength (R) UE > (L) UE; see OT eval for details Mobility: Assistance level Dep Max Mod Min CGA CS Sup DS Mod I I Set-up Comments Rolling L X1 For pad placement Supine to sit X2 Max A at trunk Max A at LEs Sit to supine X2 Dep at LEs Dep at trunk * dep x 2 for positioning Transfers Not attempted at this time due to safety concerns Exercises: (B) ankle pumps x 10 (L) AROM hip/knee flexion x 10 (R) AAROM hip/knee flexion x 3 with progressive flexion for quad stretch Endurance: Impaired Vitals: Seated EOB patient became unresponsive with an upward R eye drift Patient returned to supine, became responsive again and stated she felt better Patient attempted to sit in an upright position in bed: BP 87/32 (45), 99% O2, 88bpm Patient reclined to ~50*: BP 89/27 (41) Patient reclined further to ~25*: BP 97/30 (46) Patient then returned to full supine position. RN at bedside and aware of vitals. Per family patients BP is typically elevated in the 130s-70s and at baseline she has difficulty with word finding due to previous mini strokes. RN made aware. Per family also, upon arrival patient seemed to present more drowsy and off baseline. Patient/Family Education: Instructed Patient in roles of therapy. Instructed Patient in roles, goals, treatment plan: demonstrated good verbal understanding. Discussed importance of mobility with patient while in the hospital setting. Patient acknowledges understanding. Patient up in bed with call light in reach. Bed alarm intact. RN is at bedside. DME: With Patients permission ordered no equipment via [employer] Order. If any questions contact [employer] DME Provider at [phone]. 6 Clicks Basic Mobility PT 01/03/22 Difficulty turning over in bed 2 Difficulty sitting down and standing up from a chair with arms 1 Difficulty moving from lying on back to sitting on the side of the bed 1 Help from another person moving to and from bed to a chair 1 Help from another person to walk in hospital room 1 Help from another person climbing 3-5 steps with a railing 1 PT 6 Clicks Score 7 6 Click Score Guidelines: 1 - Total = Requires total assistance, or cannot do at all. 2 - A lot = Requires a lot of help (maximun to moderate assistance) Can use assistive devices. 3 - A little = Requires a little help (supervision, minimal assistance) Can use assistive devices. 4 - None = Does not require any help and does the (more content not included)... [employer] [id number] NoteORTHOPAEDIC SURGERY PROGRESS NOTE ASSESSMENT AND PLAN: 86 year old year old female who is s/p CMN with Dr. Sher on 01/02/22. - Pain control with PO and IV for Breakthrough - Antibiotics: Ancef periop - Encouraged IS - Weight bearing status: WBAT RLE - Aquacel for 7 dys - Anticoagulation: Per trauma, recommend 6 weeks - Dispo: Per trauma surgery SUBJECTIVE: Currently receiving 1 pRBC, endorses some lightheadedness and dizziness. Timid and anxious during evaluation this AM OBJECTIVE: Vitals: 01/03/22 0426 BP: 111/31 Pulse: 81 Resp: 16 Temp: 98.4 ???F (36.9 ???C) SpO2: 94% Intake/Output Summary (Last 24 hours) at 01/03/2022 0729 Last data filed at 01/03/2022 0654 Gross per 24 hour Intake 2302.5 ml Output 850 ml Net 1452.5 ml General: Alert and oriented, resting in bed, in no acute distress Right Lower Extremity: Dressing C/D/I 5/5 Gsc, TA, EHL SILT LFCN, PFCN, Obturator, Saphenous, Sural, DP, SP, Plantar 2+ DP, PT pulses; foot warm, well-perfused Compartments soft and compressible (all compartments) CBC/PT/INR WBC RBC Hgb Hct MCV RDW Plt PT aPTT INR 01/03/222 11.5 2.18 6.5 19.6 90 13.4 104 01/03/22 0222 11.1 2.16 6.7 19.3 89 13.1 108 01/01/22 0618 28 01/01/22 0618 1.27 01/01/2218 9.6 3.59 11.1 32.5 91 13.3 133 WBC/Diff None Basic Metabolic Panel Na K Cl CO2 Gap Glu BUN Cr Ca Mg PO4 01/03/22221 1.7 01/03/22221 3.8 01/03/22221 133 4.0 101 22 14 138 20 1.05 8.2 01/01/2218 1.9 01/01/22617 3.6 01/01/22617 138 3.9 102 26 14 160 13 0.67 8.8 [place] (Ailyn) MD [facility] Orthopaedic Surgery, PGY-1 [facility] Consult note* Nanci Austin, PT - 01/03/2022 8:23 AM EDTAssociated Order(s): IP PHYSICAL THERAPY SERVICE REQUEST; IP PHYSICAL THERAPY SERVICE REQUEST PHYSICAL THERAPY ACUTE EVALUATION Referral received, chart reviewed. Patient seen from 9:15 am to 9:53 am on 7B unit for 38 minutes. (eval + treat) Patient seen as co-treatment with occupational therapy secondary to skilled need of 2 therapists tosafely mobilize patient. Admit date/time: 01/01/2022 12:44 AM Reason for Admit: 86 yo female admitted s/p fall from standing Diagnosis: (R) femoral shaft fracture (R) hairline fx into the intertrochanteric region Precautions: (R) LE WBAT per brief op note High falls risk Full code Regular 2 GM sodium diet Procedures this admit: 01/01/22 ECG 01/02/22 (R) LE IM nail of femur (Dr. Sher) Past Medical and Surgical History: Cardiac, pulmonary HTN Identification was verified by patient verbalizing his/her name and date of . Risks and Benefits of physical therapy: Patient informed of risks and benefits of treatment SUBJECTIVE: Patient Subjective: ow! 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 0 steps to bedroom/bathroom Assistance available: Son Equipment available: RW, cane, tub bench, grab bars OBJECTIVE: Appearance: Supine in bed Hospital gown [place] Hep-locked IV Behavior: Awake Soft spoken Difficulty with word finding - per patients son this is baseline Anxious / painful Oriented x self, month (with options), location, but not year (despite options) Follows simple step commands consistently and with cues Pain: Site/Location: (R) LE; Pain Scale: 5 /10 Pain Relief Interventions Implemented: Positioning, Relaxation Training and RN aware and reports patient received medication according to time schedule Passive ROM: (B) LE Grossly WFL throughout despite pain Strength/Active ROM: Unable to formally assess seated EOB due to patient becoming unresponsive Patient able to perform (B) ankle pumps supine Patient able to perform (L) hip/knee flexion without assist supine Patient able to activate muscles for (R) hip/knee flexion but unable to complete partial ROM. Impaired strength (R) UE > (L) UE; see OT eval for details Mobility: Assistance level Dep Max Mod Min CGA CS Sup DS Mod I I Set-up Comments Rolling L X1 For pad placement Supine to sit X2 Max A at trunk Max A at LEs Sit to supine X2 Dep at LEs Dep at trunk * dep x 2 for positioning Transfers Not attempted at this time due to safety concerns Exercises: (B) ankle pumps x 10 (L) AROM hip/knee flexion x 10 (R) AAROM hip/knee flexion x 3 with progressive flexion for quad stretch Endurance: Impaired Vitals: Seated EOB patient became unresponsive with an upward R eye drift Patient returned to supine, became responsive again and stated she felt better Patient attempted to sit in an upright position in bed: BP 87/32 (45), 99% O2, 88bpm Patient reclined to ~50*: BP 89/27 (41) Patient reclined further to ~25*: BP 97/30 (46) Patient then returned to full supine position. RN at bedside and aware of vitals. Per family patients BP is typically elevated in the 130s-70s and at baseline she has difficulty with word finding due to previous mini strokes. RN made aware. Per family also, upon arrival patient seemed to present more drowsy and off baseline. Patient/Family Education: Instructed Patient in roles of therapy. Instructed Patient in roles, goals, treatment plan: demonstrated good verbal understanding. Discussed importance of mobility with patient while in the hospital setting. Patient acknowledges understanding. Patient up in bed with call light in reach. Bed alarm intact. RN is at bedside. DME: With Patients permission ordered no equipment via [employer] Order. If any questions contact [facility] DME Provider at [phone]. 6 Clicks Basic Mobility PT 01/03/22 Difficulty turning over in bed 2 Difficulty sitting down and standing up from a chair with arms 1 Difficulty moving from lying on back to sitting on the side of the bed 1 Help from another person moving to and from bed to a chair 1 Help from another person to walk in hospital room 1 Help from another person climbing 3-5 steps with a railing 1 PT 6 Clicks Score 7 6 Click Score Guidelines: 1 - Total = Requires total assistance, or cannot do at all. 2 - A lot = Requires a lot of help (maximun to moderate assistance) Can use assistive devices. 3 - A little = Requires a little help (supervision, minimal assistance) Can use assistive devices. 4 - None = Does not require any help and does the activity independently. Can use assistive devices. Progressive Mobility Protocol Score: Level 2 ASSESSMENT: Toribio Betts is a 86 year old female admitted s/p fall from standing and diagnosed with (R) femoral shaft fracture. Patient is now s/p (R) LE IM nail placement on 01/02/[address] Sher. At timeof evaluation patient was willing and able to attempt mobilization and sitting EOB; however, upon sitting EOB patient became unresponsive and demonstrated abnormal vital signs. Patient is currently functioning below her baseline level with decreased strength, balance, and endurance. Therefore, recommend further therapy services in a Assisted Setting once medically cleared. Will continue tofollow patient while in hospital as appropriate. Problems: Pain Decreased ROM/strength Decreased functional mobility Decreased endurance Decreased balance Decreased education in exercise/precautions Decreased cognition/behavior Impaired safety awareness Rehabilitation Potential: Good Goals (to be achieved by discharge from acute care): All goals to be achieved while WBAT (R) LE 1. Patient to achieve acceptable level of pain control to participate in Therapy sessions. 2. Patient to improve bed mobility to mod A 3. Patient to demonstrate sit to stand transfer to/from multi-level surface mod A with RW 4. Patient to ambulate 10 feet with RW and mod A 5. Patient to transfer EOB <> bedside chair with RW and mod A 6. Patient to demonstrate appropriate stamina and balance to attain above functional goals without LOB or SOB. PLAN OF CARE: Frequency: Patient to be seen 1-3 times a week Interventions: Functional mobility ROM/Strengthening Home exercise program Discharge planning and equipment ordering as needed Patient /Family education The evaluation findings and treatment plan were discussed with the patient/family. The patient/family indicated understanding and agreement with the plan. Nanci Austin PT, DPT NA = Not Assessed, I = Independent, GA = Modified Independent, Sup = Supervised, Set up = Physical Assistance for Set-up Only, Min = Minimal Assistance, Mod = Moderate Assistance, Max = Max assistance; Dep = Dependent; AROM = Active Range of Motion; PROM = Passive Range of Motion; MMT = Manual Muscle Test; LE = Lower Extremity [id number] Note* OP Note - Eric Sher MD - 01/02/2022 4:24 PM EDT Name: TORIBIO BETTS MR#: [id number] [facility]#: [id number] Date of Procedure: 01/02/2022 ATTENDING SURGEON: Eric Sher MD FIRST SURGEON: Joselito Patel PREOPERATIVE DIAGNOSIS: Right proximal 3rd femur shaft fracture. POSTOPERATIVE DIAGNOSIS: Right proximal 3rd femur shaft fracture. PROCEDURE PERFORMED: IM nail of right femur fracture. CPT code 08113. ANESTHESIA: GETA. ESTIMATED BLOOD LOSS: 200 mL. SPECIMENS: None. COMPLICATIONS: None apparent. IMPLANTS: Synthes TFNA 10 x 380 mm. BRIEF HISTORY AND OPERATIVE INDICATION: The patient is an 86-year-old female, who had a ground level fall at home. She had immediate right hip and proximal thigh pain. She was found to have a displaced right femur fracture. Of note, she is on Plavix and Eliquis. She was admitted by the trauma team and cleared for surgery with me today. Plavix and Eliquis have been given a 48 hours. We proceed comfortable proceeding with fixation with the nail today. I have gone over the risks, benefits, and alternatives of the procedure with the patient as well as her sons and informed consent was obtained and they elected to proceed. DESCRIPTION OF PROCEDURE: The patient was brought to the operating room, laid supine on operating table, had all bony prominences well padded. She underwent general endotracheal anesthesia under careof the anesthesia team and did so without complication. She received 2 g of IV Ancef for antibioticprophylaxis and was prepped and draped in the usual sterile fashion. A time-out was then taken, which included reading the consent aloud, verifying the procedure to be performed as well as the terry on the right thigh that was done by me in the holding area and coincided with the x-rays in the room.All operative personnel confirmed the time-out. I used the [place] table to pull some in-line traction, a little bit abduction and just a little bit of internal rotation and spiral proximal 3rd femur shaft fracture lined up nicely on AP and lateral views. It was then a little bit of valgus and I used a percutaneous incision with a ball spike and a shoulder hook in order to tweak that reduction. We then gained a starting point at the medial portion of the tip of the trochanter and central with the head and neck shaft axis on the lateral. This was driven in proximally. We incised over the wire, gained access to the femoral canal with the curved ball-tipped guidewire. Seated across the fracture site down at the level of the knee. We measured for a 380 mm nail. I did three passes with the reamer, 9.5, 10.5 and 11.5. We selected the 10 x 380 TFNA. Holding the fracture reduced the entire time. This was seated across the fracture site. Length alignment rotation looked excellent based upon our cortical reads. We instrumented with a helical blade proximally. I medialized and gained a little bitof compression and then locked it into place. Two distal interlocking screws were placed in static p osition to complete the construct. The traction was removed as well as the jig. Final x-rays were taken along the length of the right femur confirming our reduction and fixation. I was pleased with how everything looked. The wounds were copiously irrigated with normal saline. A layered closure was performed. The leg was cleansed and sterile dressing was placed. All counts including, but not limited to sponges and needles were correct at the end of the procedure and the patient was extubated andtransferred stable to the PACU with no apparent complications. POSTOPERATIVE CARE: She can weight bear as tolerated on the right lower extremity. She will receiveAncef in the perioperative. It is okay to resume her Plavix and Eliquis in the morning. She will primarily be managed by the trauma team. We will courage mobilization with physical therapy. ATTESTATION: I, Eric Sher, was scrubbed and present for the critical portions of this procedure and excision. Eric Sher MD /MedQ/ Dict: 01/02/2022 11:34:47 TRANS: 01/02/2022 14:21:14 JOB: [id number] [employer]#: [id number] Note* Care Plan Note - Araseli Diego RN - 01/02/2022 12:52 PM EDT Problem: Routine Care: Goal: Patient care will be managed and maintained throughout hospital stay per unit specific routine care procedure Outcome: Progressing Note: Hourly rounding performed. Problem: Impaired Mobility: Goal: Ability to tolerate increased activity will improve and be maintained Outcome: Progressing Note: Angelo scale interventions in place. Problem: Activity Intolerance: Goal: Demonstrate progressive return to baseline activity level Outcome: Progressing Note: PT/OT ordered. Problem: VTE Prophylaxis: Goal: Will be free of DVT Outcome: Progressing Note: SCDs and Lovenox ordered. Problem: Fluid and Electrolyte Imbalance: Goal: Adequate fluid and electrolyte balance will be achieved and maintained Outcome: Progressing Note: Continuous IVF ordered. Problem: Anxiety: Goal: Level of anxiety will decrease Outcome: Progressing Note: Calming techniques used during Pt care. Problem: Acute Pain: Goal: Ability to identify pain intensity on a pain scale and rate it consistently will be achieved and maintained Outcome: Progressing Note: Numeric pain scale in use. Problem: Safety: Goal: Patient will remain free of falls during hospital stay Outcome: Progressing Note: High risk falls interventions in place. Problem: Discharge Planning: Goal: Discharge needs of the adult patient will be met Outcome: Progressing Note: SNF pending medical clearance. [id number] Consult note* Cecelia Stiles PT - 01/02/2022 11:15 AM EDT PHYSICAL THERAPY Continue to follow this Patient who is currently in OR for Fixation of (R) Femoral Shaft Fx Will HOLD PT Eval at this time and follow up post-operatively. Report to follow. Cecelia Stiles PT, MPT B) [phone] [id number] Note* Brief Operative Note - Joselito Patel MD - 01/02/2022 10:42 AM EDT Brief Operative Note MAIN OR 08 Toribio Sip 86 year old female Surgical Contact Serial Number: [id number] Preoperative Diagnosis: Other fracture of right femur, initial encounter for closed fracture (HCC) [S72.8X1A] Postoperative Diagnosis: * Other fracture of right femur, initial encounter for closed fracture (HCC) [S72.8X1A] Procedures: Surgical CPTs Procedures OPEN TREATMENT, FEMORAL SHAFT FRACTURE, W/INSERTION, INTRAMEDULLARY IMPLANT, W/WO SCREW/CERCLAGE No data filed Surgeon(s): Surgeon(s): Eric Sher MD Staff: Scrub: Christine Matson Pretzel Twisting Machine Operator Nurse: Heather Pedroza RN Retail Selling Floor Leader: Lety Clarke Resident Physician In Radiology: Joselito Patel MD; Salma Mae MD Anesthesia: General Anesthesiologist: Davide Mcintosh DO CAA: Henrique Quijano CAA [place] REPRESENTATIVE: Erika Islas APRN-CRNA Specimen(s): * No specimens in log * Estimated Blood Loss: greater than 10 cc -- Esitmated Amount: 100 Lines/Drains: Peripheral IV Access: 01/01/22 010 20 gauge Right Forearm (Active) Site Assessment WNL;Dressing intact 01/01/222007 Infusion Status Port #1 Capped;Patent 01/01/222007 Peripheral IV Access: 01/01/22 010 22 gauge Left Forearm Present on Arrival to Hospital (Active) Site Assessment WNL;Dressing intact 01/01/222007 Infusion Status Port #1 Infusing;Patent 01/01/222007 Temporarily Retained Foreign Object: No Findings: Ortho Fracture Complications: None Status at end of surgery: Stable Activity: weight bearing as tolerated Surgical wound class: Yes, wound was clean. Patient Class: Inpatient. Is this a patient scheduled as an outpatient that needs to be admitted as an inpatient? No Dr. Sher was present in the OR for the critical portion of the procedure and procedure sign-out. Ortho Postop Plan WBAT RLE 24h ancef DVT ppx per primary recommend 6 week course Aquacel dressing until POD7 Follow up in [address] Sher Signed by Joselito Patel MD 01/02/2022 11:51 AM [employer] Work Phone: 1(923) 673-561006-01-2022 Note* Anesthesia Attestation - Davide Mcintosh DO - 01/02/2022 9:54 AM EDT Anesthesia Attestation ATTESTATION OF INFORMED CONSENT FOR ANESTHESIA Anesthesia options were discussed with the patient and/or legal sales representative adding machines. The risks, benefits and alternatives were reviewed. Questions regarding anesthesia were answered. Patient and/or legal sales representative adding machines knows such anesthetics and procedures may be performed by Resident physicians, Certified Anesthesiologist Assistants, or Certified Nurse Anesthetists under the supervision of a physician. The patient /or the patient s legal representativeagree with the plan for anesthesia. [id number] Note* Blood Attestation - Davide Mcintosh DO - 01/02/2022 9:54 AM EDT Blood Attestation ATTESTATION OF INFORMED CONSENT FOR BLOOD The transfusion of blood and/or blood components were discussed with the patient and/or legal sales representative adding machines. The risks, benefits and alternatives were reviewed. Questions regarding blood transfusions were answered. The patient /or the patient s legal sales representative adding machines agree with the plan for transfusion of blood and/or blood components. [id number] NoteORTHOPAEDIC SURGERY PROGRESS NOTE A/P: 86 year old female with mGLF found to have R subtroch femur fracture. Closed, NVI. Patient and family refusing bucks skin traction and placed in pillow splint for comfort. ??? - C/P for CMN R femur with Dr. Sher today 01/02/22 - WB: NWB RLE, strict bedrest - Abx: none indicated - Diet: NPO - DVT: Per Trauma team management criteria/guidelines - Please obtain all preop labs (CBC,BMP,EKG, CXR, Coags, Type and Screen) - Cortes: placed, per trauma protocol - Pain: per trauma SUBJECTIVE: No acute events overnight OBJECTIVE: Vitals: 01/02/22 0606 BP: 139/50 Pulse: 58 Resp: 16 Temp: 97.9 ???F (36.6 ???C) SpO2: 96% Intake/Output Summary (Last 24 hours) at 01/02/2022 0750 Last data filed at 01/02/2022 0700 Gross per 24 hour Intake 1680 ml Output 500 ml Net 1180 ml General: Alert and oriented, resting in bed, in no acute distress Right lower extremity: - Skin intact - Incredibly tender to palpation over R hip - 5/ EHL/DF/PF. - Sensation intact to light touch in sural, saphenous, superficial/deep peroneal, tibial nerve distributions. - 2+ DP pulse, < 2 seconds capillary refill. ??? CBC/PT/INR WBC RBC Hgb Hct MCV RDW Plt PT aPTT INR 01/01/22 0618 28 01/01/22 0618 1.27 01/01/22 0618 9.6 3.59 11.1 32.5 91 13.3 133 WBC/Diff None Basic Metabolic Panel Na K Cl CO2 Gap Glu BUN Cr Ca Mg PO4 01/01/22 0618 1.9 01/01/22 0618 3.6 01/01/22 0618 138 3.9 102 26 14 160 13 0.67 8.8 [place] (Ailyn) MD Ivan Orthopaedic Surgery, PGY-1 [facility]06-01-2022 Consult note* Mari Hung OT - 01/02/2022 7:34 AM EDT Occupational Therapy Per chart review, pt was cleared for OR for CMN R femur with Dr. Fierro by trauma team on 01/01/22. Pt planning for OR this date. Will hold OT eval until post-op. Mari Hung OTR/L [id number] NoteTRAUMA SURGERY PLAN OF CARE NOTE 86 year old???female???brought in by EMS as a transfer from [facility]???following fall from standing. She fell and her leg twisted under her. She is on Eliquis (Last Dose 12/31 AM). History of CHF, ECHO this AM showing moderate pHTN, nml EF. No other acute traumatic injuries at this time. From trauma standpoint, patient is suitable to proceed to OR with orthopedics. Thomas Dailey MD Trauma Surgery, PGY-4[facility]05-31-2022 Note* Care Plan Note - Araseli Diego RN - 01/01/2022 10:34 AM EDT Problem: Routine Care: Goal: Patient care will be managed and maintained throughout hospital stay per unit specific routine care procedure Outcome: Progressing Note: Hourly rounding performed. Problem: Impaired Mobility: Goal: Ability to tolerate increased activity will improve and be maintained Outcome: Progressing Note: Angelo scale interventions in place. Problem: Activity Intolerance: Goal: Demonstrate progressive return to baseline activity level Outcome: Progressing Note: PT/OT ordered . Problem: VTE Prophylaxis: Goal: Will be free of DVT Outcome: Progressing Note: SCDs and Lovenox ordered. Problem: Fluid and Electrolyte Imbalance: Goal: Adequate fluid and electrolyte balance will be achieved and maintained Outcome: Progressing Note: NPO w/ continuous IVF. Problem: Anxiety: Goal: Level of anxiety will decrease Outcome: Progressing Note: Calming techniques used during Pt care. Problem: Acute Pain: Goal: Ability to identify pain intensity on a pain scale and rate it consistently will be achieved and maintained Outcome: Progressing Note: Numeric pain scale interventions in place. Problem: Safety: Goal: Patient will remain free of falls during hospital stay Outcome: Progressing Note: High risk falls interventions in place. Problem: Discharge Planning: Goal: Discharge needs of the adult patient will be met Outcome: Progressing Note: Pending PT/OT eval. [id number] NotePHYSICAL THERAPY Consult received and appreciated. Chart reviewed in full. Plan it OR this date for fixation of (R) Femoral Shaft Fx. Will HOLD PT Evaluation until post-operatively Full report to follow. Cecelia Stiles, PT, MPT (I) [phone]05-31-2022 Note Occupational Therapy Chart Review Admit Date: 01/01/22 OT Referral Date: 01/01/22 Service: Trauma Reason for Admit: transfer from [facility] s/p fall from standing Diagnosis: R femoral shaft fx Procedures: planning for OR this date for fixation of R femur Precautions: high falls, full code, NPO, progressive mobility, NWB RLE (pre-op) Home/Social: Will ascertain during evaluation post-op. Evaluation to follow. Please update weightbearing status post-op. Mari Hung, OTR/LThe [facility]05-31-2022 Consult note* Cecelia Stiles, PT - 01/01/2022 8:33 AM EDT PHYSICAL THERAPY Consult received and appreciated. Chart reviewed in full. Plan it OR this date for fixation of (R) Femoral Shaft Fx. Will HOLD PT Evaluation until post-operatively Full report to follow. Cecelia Stiles, PT, MPT (B) [phone] [id number] Consult note* Mari Hnug OT - 01/01/2022 7:31 AM EDT Occupational Therapy Chart Review Admit Date: 01/01/22 OT Referral Date: 01/01/22 Service: Trauma Reason for Admit: transfer from [facility] s/p fall from standing Diagnosis: R femoral shaft fx Procedures: planning for OR this date for fixation of R femur Precautions: high falls, full code, NPO, progressive mobility, NWB RLE (pre-op) Home/Social: Will ascertain during evaluation post-op. Evaluation to follow. Please update weightbearing status post-op. Mari Hung OTR/L [id number] NoteSurgical Attestation: I have reviewed the patient's History and Physical Examination. I have personally seen and evaluated the patient, repeating cloud portions. There is no significant interval change. Surgery is still indicated. Yes Consent reviewed and signed by patient/family: Yes Operative site verified and marked: Yes Trever Umana MD Orthopedic Surgery, PGY2 Pager: [phone]05-31-2022 Consult note* Eric Sher MD - 01/01/2022 6:24 AM EDT Orthopaedic Surgery Consult H&P Requesting Provider / Service: ED/Trauma CC: R Hip pain HPI: 86 year old female with CAD (plavix) Afib (eliquis) presents as Cat2 trauma after mGLF at home. Noted to have immediate pain in R hip. Rates pain a 7/10. Worse with movement, better with rest. Denies any numbness or tingling. Found to have R subtroch femur fracture. Admitted to trauma for further evaluation. PMH: CAD, CHF, CVA, HLD, HTN, DM, AFib on Eliquis PSHx: Cardiac cath/stents Social History Socioeconomic History Marital status: Single Tobacco Use Smoking status: Never Smoker Smokeless tobacco: Never Used Vaping Use Vaping Use: Never used Allergy: No Known Allergies Current Facility-Administered Medications: ceFAZolin (ANCEF) 2,000 mg in dextrose 50 mL ivpb, 2 g, Intravenous, One Time Dose, Trever Umana MD HYDROmorphone (DILAUDID) 0.2 MG/ML injection 0.2 mg, 0.2 mg, Intravenous Push, One Time Dose, Trever Umana MD atorvastatin (LIPITOR) tablet, 40 mg, Oral, At Bedtime, Ron Bach MD furosemide (LASIX) tablet, 20 mg, Oral, Daily, Ron Bach MD metoprolol (LOPRESSOR) tablet, 25 mg, Oral, 2x Daily, Ron Bach MD esomeprazole (NEXIUM) capsule, 20 mg, Oral, Daily 30 min before breakfast, Ron Bach MD sertraline (ZOLOFT) tablet, 25 mg, Oral, Daily, Ron Bach MD acetaminophen (TYLENOL) tablet, 650 mg, Oral, Every 4 hours, Ron Bach MD, 650 mg at 01/01/22324 ondansetron (ZOFRAN) 4 MG/2ML injection, 4 mg, Intravenous Push, Q4H PRN, Ron Bach MD lactated ringers iv infusion, , Intravenous, Continuous, Ron Bach MD, Last Rate: 50 mL/hr at 01/01/22324, New Bag at 01/01/22324 oxyCODONE immediate release tablet, 5 mg, Oral, Q4H PRN, Ron Bach MD, 5 mg at 01/01/22324 HYDROmorphone (DILAUDID) 0.2 MG/ML injection 0.2 mg, 0.2 mg, Intravenous Push, Q3H PRN, Ron Bach MD docusate sodium (COLACE) capsule, 100 mg, Oral, 2x Daily, Ron Bach MD senna (SENOKOT) tablet, 8.6 mg, Oral, At Bedtime, Ron Bach MD dextrose 10 % iv infusion, 125 mL, Intravenous, PRN OR glucagon (GLUCAGEN) 1 MG injection, 1 mg, Subcutaneous, PRN OR dextrose (GLUTOSE) 40 % gel, 15 g of glucose, Buccal, PRN OR dextrose(GLUTOSE) 40 % gel, 30 g of glucose, Buccal, PRN, Ron Bach MD insulin lispro (HumaLOG) 100 UNIT/ML injection, 1-7 Units, Subcutaneous, 3x Daily AC, Ron Bach MD Family history: Denies family hx of clotting or bleeding disorder Review of Systems: ROS Gen: denies fevers, chills Eyes: denies vision changes ENT: denies sore throat Resp: denies cough, weezing CV: denies chest pain Endocrine: denies fatigue GI: denies abdominal pain MSK: see above Skin: denies rash Neuro: denies numbness, tingling O: Patient Vitals for the past 24 hrs: BP Temp Temp src Pulse Resp SpO2 O2 Device O2 Flow Rate (l/min) 01/01/22 0559 138/60 98.3 F (36.8 C) Oral 76 16 99 % Nasal cannula 2 01/01/22 0325 -- -- -- -- -- -- Nasal cannula 2 01/01/22 0315 157/74 97.8 F (36.6 C) Oral 86 20 96 % Nasal cannula 2 01/01/22 0230 -- -- -- 80 12 100 % -- -- 01/01/22 0205 -- -- -- 78 13 100 % -- -- 01/01/22 0105 157/81 -- -- 99 17 98 % -- -- 01/01/22 0059 157/82 -- -- 95 12 99 % -- -- 01/01/22 0048 168/93 97.7 F (36.5 C) Oral 100 17 98 % -- -- 01/01/22 0045 177/85 -- -- (!) 102 16 95 % Nasal cannula 2 Intake/Output Summary (Last 24 hours) at 01/01/2022 0624 Last data filed at 01/01/2022 0603 Gross per 24 hour Intake 60 ml Output 850 ml Net -790 ml PE: BP 138/60 (BP Location: left arm) Pulse 76 Temp 98.3 F (36.8 C) (Oral) Resp 16 Ht 5' 1 (1.549 m) Wt 131 lb 3 oz (59.5 kg) SpO2 99% BMI 24.79 kg/m Gen: AOx3, NAD HEENT: normocephalic atraumatic Psych: appropriate mood and affect Resp: nonlabored breathing Cardiac: Extremities WWP, RRR to peripheral palpation Skin: warm, dryu Neuro: SILT over BLE Right lower extremity: - Skin intact - Tender to palpation over R hip - 12/06 EHL/DF/PF. - Sensation intact to light touch in sural, saphenous, superficial/deep peroneal, tibial nerve distributions. - 2+ DP pulse, < 2 seconds capillary refill. Imaging: XR R Hip demonstrates R proximal shaft of femur fracture. A/P: 86 year old female with mGLF found to have R femur fracture. Closed, NVI. Patient and family refusing bucks skin traction and placed in pillow splint for comfort. - C/P for CMN R femur with Dr. Fierro on 01/01 - WB: NWB RLE, strict bedrest - Abx: none indicated - Diet: NPO - DVT: Per Trauma team management criteria/guidelines - Please obtain all preop labs (CBC,BMP,EKG, CXR, Coags, Type and Screen) - Cortes: placed, per trauma protocol - Pain: per trauma D/w Dr. Vadim Umana MD Orthopedic Surgery, PGY2 On-Call Admitting/Consult Resident 01/01/22 This consult was seen and staffed within 30 minutes of the initial consult. Teaching Physician Note: I saw and evaluated the patient pre-operatively. I personally obtained the cloud and critical portions of the history and physical exam. I reviewed the resident's documentation and discussed the patient with the resident. I agree with the resident's medical decision making as documented in the resident's note. We discussed the risks, benefits, and alternatives to the above surgery and the patient elected to proceed. This note represents our aggregated findings and impressions. Eric Sher MD [employer] Work Phone: 1(626) 182-897405-31-2022 History and physical note* Trever Umana MD - 01/01/2022 4:55 AM EDT Surgical Attestation: I have reviewed the patient's History and Physical Examination. I have personally seen and evaluated the patient, repeating cloud portions. There is no significant interval change. Surgery is still indicated. Yes Consent reviewed and signed by patient/family: Yes Operative site verified and marked: Yes Trever Umana MD Orthopedic Surgery, PGY2 Pager: [phone] [employer] Work Phone: 1([phone]) 194-583205-31-2022 History and physical note* Trever Umana MD - 01/01/2022 4:55 AM EDT Surgical Attestation: I have reviewed the patient's History and Physical Examination. I have personally seen and evaluated the patient, repeating cloud portions. There is no significant interval change. Surgery is still indicated. Yes Consent reviewed and signed by patient/family: Yes Operative site verified and marked: Yes Trever Umana MD Orthopedic Surgery, PGY2 Pager: [phone] * Ember Saravia MD - 01/01/2022 12:47 AM EDT [facility] OF ACUTE [facility]ARE SURGERY TRAUMA SURGERY HISTORY AND PHYSICAL Toirbio Betts [id number] 01/01/22 BASIC INJURY INFORMATION: Level of activation: Category 2 Trauma Mode of transport: Ambulance: Transfer Mechanism of injury: Fall from ground level Complicating features: Not applicable Protective measures: Not applicable Date of Injury: 12/31/2021 Time of Injury: 6 PM Patient origin: Transfer from outside facility HISTORY OF PRESENT INJURY: Toribio Betts is a 86 year old female brought in by EMS as a transfer from [facility] following fall from standing. She fell and her leg twisted under her. She is on Eliquis. She had imaging at OSH including CT head, C spine, A and P. No T and L. Loss of consciousness: No Initial interventions (prior to ED disposition): None (Select all that apply.) Hemodynamic status witnessed in ED: Tachycardic (>100 bpm) (Select all that apply.) PRIMARY SURVEY: Airway: Intact Breathing: Normal Breath Sounds: Breath sounds equal bilaterally. Circulation: Pulses: Normal Skin: Normal skin color, texture, and turgor. No rashes or lesions. Disability: Pupils: PERRL GCS: Best Eyes: 4 Best Verbal: 5 Best Motor: 6 Total: 15 SECONDARY SURVEY: ED Triage Vitals [01/01/22 0045] BP Heart Rate Respiratory Rate Temp Temp src 177/85 (!) 102 16 -- -- SpO2 Weight Height Head Circumference Peak Flow 95 % -- -- -- -- Pain Score Pain Loc Pain Edu? Excl. in GC? 10 -- -- -- Neurologic: Alert and oriented, appropriate, moves all extremities. HEENT: Head: No lacerations, bone step-offs, or abrasions; midface stable to palpation Eyes: PERRLA, conjunctiva/corneas without lesions. Ears: Bilateral TMs could no be visualized Nose: Septum midline, no crepitus with motion. Throat: Oral cavity without trauma. Neck: No midline tenderness, lacerations, or wounds Chest: No crepitus or pain with palpation; no abrasions or contusions; no gross deformities Pulmonary: Breath sounds clear, symmetrical; no wheezes, rales, or consolidation Cardiovascular: Pulses: Bilateral radial, femoral, DP and PT pulses are normal. Abdomen: Non-distended; non-tender to palpation; no scars, lacerations, or contusions Rectal: Not performed. Pelvis/Perineum: Pelvis is stable to palpation and Additional findings: Severe TTP R hip Musculoskeletal: Back/Spine: Thoracolumbar spinal column non-tender and No step-off or deformity noted Extremities: Right LOWER extremity abnormality: Severe pain with movement, held in externally rotated position Adjunct Studies: None Check all that apply: None PAST MEDICAL HISTORY: Other: CAD, CHF, CVA, HLD, HTN, DM, AFib on Eliquis PAST SURGICAL HISTORY: Cardiac cath PRE-ADMISSION MEDICATIONS: Atorvastatin 40 mg HS Eliquis 2.5mg BID Isosorbide Dinitrate 30mg BID Lasix 20mg daily Metoprolol 25 BID Omeprazole 20mg daily Plavix 75mg daily Zoloft 25mg daily Anti-platelet use: Plavix, 12/31/21 Anti-coagulant use: Yes: Eliquis (name) and 12/31/21 (date of last use) ALLERGIES: Not on File SOCIAL HISTORY: Social History Socioeconomic History Marital status: Single Living status: Home Primary language: Yemeni Functional status: Independent Impairments: Hearing loss Assistive Devices Used: None FAMILY HISTORY: No family history on file. REVIEW OF SYSTEMS: Skin: negative Eyes: negative review of symptoms Ears/Nose/Throat: negative Respiratory: negative symptoms (no cough, hemoptysis, SOB, RODRÍGUEZ, PND, wheezing) Cardiovascular: negative symptoms (No CP/Pressure/Tightness, palpitations, orthopnea, PND, SOB, RODRÍGUEZ, edema, SCHNEIDER or vision change) Gastrointestinal: negative symptoms (no abdominal pain, anorexia, n/v, indigestion, constipation, or diarrhea) Genitourinary: no urinary symptoms Neurologic: negative symptoms (no syncope, seizures, weakness, gait problems, numbness, burning pain, tremors, or memory loss) R hip fracture Psychiatric: negative (no sleep disturbance, anxiety, memory loss, disorientation, inattention, feelings of depression) Hematologic/Lymphatic/Immunologic: negative (no anemia, bleeding, bruising) Endocrine: negative review of symptoms BASIC LABS No results found for this or any previous visit. RADIOLOGY: CT Chest: Lungs clear, no acute osseus findings CT Head: Chronic small vessel ischemic changes, no ICH. No fracture CT C-Spine: No acute fracture or subluxation, degenerative changes CT A/P: Displaced comminuted fracture of proximal R femoral shaft, additional hairline fracture of the intertrochanteric region ASSESSMENT: Toribio Betts is a 86 year old female w significant past cardiac history and pulmonary hypertension, presenting after a GLF at home. Resulting in a right sided femoral shaft fracture and hairline fracture int he intertrochanteric region. INJURIES: R femoral shaft fractrue INCIDENTALS: None PLAN: Neurologic - Analgesia: Standing tylenol, PRN Oxy, Dilaudid Continue home zoloft Respiratory - Bronchopulmonary Hygiene Incentive Spirometer Supplemental O2 PRN to target SpO2 92%. Cardiovascular - Monitor Vitals Continue home metoprolol, lasix, atorvastatin Hold Isosorbide for now Hold Eliquis/plavix for procedure Plan for ECHO tomorrow GI - Diet: Strict NPO Bowel regimen: Colace, Senna Zofran PRN for nausea Continue PPI Renal/ - mIVF cortes in place for: Beata-operative Measure I&O Daily BMP, Mg, Phos. Replace as needed (Maintain K >4, Phos >3, Mg >2) Endo - SSI, unclear if on DM meds at home Heme - No indication for transfusion at this time. Daily CBC ID - No indication for antibiotics at this time. MSK - Progressive mobility protocol PT/OT NWB RLE Plan for OR tomorrow with Ortho, pending ECHO Prophylaxis: VTE - SCDs only. Hold chemoprophylaxis for OR in setting of Eliquis use Stress ulcer - No indication for stress ulcer prophylaxis at this time. Plan was discussed with fellow, Dr. Saravia Final ED disposition: Regular nursing floor Chaz Mercedes MD Fellow Addendum Above resident note reviewed; edits and alterations to the diagnosis and plan as above. Ember Saravia SICU / TICU Fellow [phone] Associated attestation - Navin Matson DO - 01/01/2022 5:07 PM EDT Teaching Physician Note: I saw and evaluated the patient. I personally obtained the cloud and critical portions of the historyand physical exam. I reviewed the resident's documentation and discussed the patient with the resident. I agree with the resident's medical decision making as documented in the resident's note. Transf er from tavo. Complex right pelvic fracture. Neurovascularly intact. Admit to our service given the age and complexity of the fracture. Surgery pending preop evaluation and workup. Lisha Matson, DO Critical care / Trauma / Emergency general surgery My pager: [phone] ACS resident: [phone] (admitted) / -[phone] (new pts) documented in this [id number] Note* Care Plan Note - Rajwinder Cisneros RN - 01/01/2022 3:43 AM EDT Problem: Routine Care: Goal: Patient care will be managed and maintained throughout hospital stay per unit specific routine care procedure Outcome: Progressing Problem: Impaired Mobility: Goal: Ability to tolerate increased activity will improve and be maintained Outcome: Progressing Note: Needs PT/OT post OR. Problem: Activity Intolerance: Goal: Demonstrate progressive return to baseline activity level Outcome: Progressing Problem: VTE Prophylaxis: Goal: Will be free of DVT Outcome: Progressing Problem: Fluid and Electrolyte Imbalance: Goal: Adequate fluid and electrolyte balance will be achieved and maintained Outcome: Progressing Problem: Anxiety: Goal: Level of anxiety will decrease Outcome: Progressing Problem: Acute Pain: Goal: Ability to identify pain intensity on a pain scale and rate it consistently will be achieved and maintained Outcome: Progressing Problem: Safety: Goal: Patient will remain free of falls during hospital stay Outcome: Progressing Problem: Discharge Planning: Goal: Discharge needs of the adult patient will be met Outcome: Progressing [id number] Physician Emergency department Note* Miguel Angel Shah MD - 01/01/2022 12:48 AM EDT EMERGENCY DEPARTMENT - VISIT NOTE HISTORY OF PRESENT ILLNESS Chief Complaint Patient presents with Fall Cat 2- Pt tx from [facility] via [facility], per report pt fell, on eliquis, right femur fx found at OSH. Head Teller: not needed - patient preferred language is Yemeni. The history is provided by the Patient. Toribio Betts is a 86 year old female with past medical history of CAD, afib on eliquis presenting to the ED as a category 2 trauma. Patient states she was walking in her house when she does not remember what happened but slipped and landed on her right leg, states her right leg twisted under her. She was seen at [facility], found to have right comminuted femur fracture and transferred to [facility].Given Dilaudid prior to arrival. Patient is complaining of severe, 10/10 right hip pain of serosa palpation and movement. She denies any other symptoms at this time REVIEW OF SYSTEMS Review of Systems Constitutional: Negative for chills and fever. HENT: Negative for congestion and sore throat. Respiratory: Negative for cough and shortness of breath. Cardiovascular: Negative for chest pain and leg swelling. Gastrointestinal: Positive for nausea. Negative for abdominal pain, diarrhea and vomiting. Genitourinary: Negative for decreased urine volume and dysuria. Musculoskeletal: Positive for arthralgias, gait problem and myalgias. Negative for back pain. Skin: Negative for pallor and wound. Neurological: Negative for weakness and headaches. Psychiatric/Behavioral: Negative for confusion and self-injury. PAST HISTORY Pertinent Past History: afib on Eliquis, HTN, HLD Pertinent Family History: denies family history of bleeding disorders Pertinent Social History: denies [facility] tobacco and drug use PHYSICAL EXAM BP 157/74 (BP Location: left arm) Pulse 86 Temp 97.8 F (36.6 C) (Oral) Resp 20 Ht 5' 1 (1.549 m) Wt 131 lb 3 oz (59.5 kg) SpO2 96% BMI 24.79 kg/m Primary Survey Airway Intact Breathing Spontaneous and Bilateral breath sounds Circulation Palpable bilateral femorals, Palpable bilateral radial, Palpable bilateral DP and Palpable bilateral PT Disability / Spine precautions GCS Score: Best Eye Response: Spontaneously (+4) Best Verbal Response: Oriented (+5) Best Motor Response: Obeys commands (+6) Secondary Survey Constitutional Alert, No acute distress and Oriented times 3 Head Atraumatic, Midface stable, No Cephalohematoma and No Lacerations noted Eye Extraocular muscles intact and Pupils equal and round ENT Oropharynx clear, no lacerations, No dental malocclusion, No dental fractures, No rhinorrhea and dry mucous membranes Cervical spine / Neck No cervical spine bony tenderness, crepitus, or stepoff and No nuchal rigidity Lungs Clear to auscultation and Breath sounds equal and symmetric Cardiac Regular rate and rhythm and No murmur, rub or gallop Abdomen Soft, Nontender, No distension and Normal bowel sounds No evidence of genital injury Back No midline bony tenderness to thoracic/lumbar/sacral spines Neuro Alert normally oriented Moves all 4 extremities symmetrically and equally to command Extremities Deformities, severe pain with movement right lower extremity, externally rotated, bilateral upper extremities without deformity, LLE without deformity, no tenderness to active of passive ROM Skin No wounds Psych Normal affect MEDICAL DECISION MAKING and ED COURSE Nursing triage and assessment notes reviewed and incorporated Interpretation of Results: Please see ED course for interpretation of labs and imaging EKG interpreted: Rhythm: Normal sinus rhythm and with frequent PVCs, Ventricular rate of 99, Normal axis, normal AL,prolonged QT, ST T changes: No ST-T wave changes No previous for comparison. Course: Therapeutics: Medications atorvastatin (LIPITOR) tablet (has no administration in time range) furosemide (LASIX) tablet (has no administration in time range) metoprolol (LOPRESSOR) tablet (25 mg Oral Hold/Not Given 01/01/22 0306) esomeprazole (NEXIUM) capsule (has no administration in time range) sertraline (ZOLOFT) tablet (has no administration in time range) lactated ringers iv infusion ( Intravenous IV New Bag 01/01/22324) acetaminophen (TYLENOL) tablet (650 mg Oral Given 01/01/22324) oxyCODONE immediate release tablet (5 mg Oral Given 01/01/22324) HYDROmorphone (DILAUDID) 0.2 MG/ML injection 0.2 mg (has no administration in time range) docusate sodium (COLACE) capsule (100 mg Oral Hold/Not Given 01/01/22 030) senna (SENOKOT) tablet (has no administration in time range) ondansetron (ZOFRAN) 4 MG/2ML injection (has no administration in time range) dextrose 10 % iv infusion (has no administration in time range) Or glucagon (GLUCAGEN) 1 MG injection (has no administration in time range) Or dextrose (GLUTOSE) 40 % gel (has no administration in time range) Or dextrose (GLUTOSE) 40 % gel (has no administration in time range) insulin lispro (HumaLOG) 100 UNIT/ML injection (has no administration in time range) ondansetron (ZOFRAN) 4 MG/2ML injection (4 mg Intravenous Push Given 01/01/22 0043) Evaluated by EM attending Slim Shah Medical Decision Makin86 year old female with a past medical history as above presenting today at a category 2 trauma. Upon presentation to the Emergency Department, patient was assessed in the trauma bay and was found sara hemodynamically stable, normotensive, not tachycardic, hypoxic at 92% placed on 2L and afebrile.Physical exam as above. Trauma work up significant for right proximal femur fracture that is comminuted. Otherwise right lower extremity is neurovascularly intact. He was given Zofran in the trauma [place] for nausea. Workup at outside hospital otherwise negative for acute traumatic injury. EKG withoutischemia, was noted to have multiple PVCs, magnesium and potassium within normal limits outside hospital, troponin within normal limits outside hospital. Patient was admitted to the trauma surgery service for further management and workup of her right femur fracture. Plan: admit to trauma IMPRESSION AND DISPOSITION Clinical Impression Diagnosis Comment Fall, initial encounter [W19.XXXA] Other fracture of right femur, initial encounter for closed fracture (HCC) [S72.8X1A] Disposition: Admitted to Floor: Trauma Surgery Service. Case discussed with Dr. Bach at 0153 Patient Condition: stable The patient has received a medical screening examination and within reasonable clinical confidence the patient was stabilized within the capabilities of the emergency department and requires admission / observation. Counseling: Spoke with the patient and discussed today s findings, in addition to providing specific details for the plan of care and expected course. They were given the opportunity to ask questions. This note was created with the assistance of speech recognition software. Falguni Hall D.O. PGY3- Emergency Medicine Pager [phone] ATTENDING NOTE I was present with the resident during the history and exam and during the obtaining of the cloud andcritical portions of the history and exam. I reviewed the resident's documentation and discussed the case with the resident and agree with the resident's medical decision making as documented in the residents note. Miguel Angel Shah MD [employer] Work Phone: 1(192) 977-221205-31-2022 Emergency department Note* Miguel Angel Shah MD - 01/01/2022 12:48 AM EDT EMERGENCY DEPARTMENT - VISIT NOTE HISTORY OF PRESENT ILLNESS Chief Complaint Patient presents with Fall Cat 2- Pt tx from [facility] via [facility], per report pt fell, on eliquis, right femur fx found at OSH. Head Teller: not needed - patient preferred language is Yemeni. The history is provided by the Patient. Toribio Betts is a 86 year old female with past medical history of CAD, afib on eliquis presenting to the ED as a category 2 trauma. Patient states she was walking in her house when she does not remember what happened but slipped and landed on her right leg, states her right leg twisted under her. She was seen at [facility], found to have right comminuted femur fracture and transferred to [facility].Given Dilaudid prior to arrival. Patient is complaining of severe, 10/10 right hip pain of serosa palpation and movement. She denies any other symptoms at this time REVIEW OF SYSTEMS Review of Systems Constitutional: Negative for chills and fever. HENT: Negative for congestion and sore throat. Respiratory: Negative for cough and shortness of breath. Cardiovascular: Negative for chest pain and leg swelling. Gastrointestinal: Positive for nausea. Negative for abdominal pain, diarrhea and vomiting. Genitourinary: Negative for decreased urine volume and dysuria. Musculoskeletal: Positive for arthralgias, gait problem and myalgias. Negative for back pain. Skin: Negative for pallor and wound. Neurological: Negative for weakness and headaches. Psychiatric/Behavioral: Negative for confusion and self-injury. PAST HISTORY Pertinent Past History: afib on Eliquis, HTN, HLD Pertinent Family History: denies family history of bleeding disorders Pertinent Social History: denies [facility] tobacco and drug use PHYSICAL EXAM BP 157/74 (BP Location: left arm) Pulse 86 Temp 97.8 F (36.6 C) (Oral) Resp 20 Ht 5' 1 (1.549 m) Wt 131 lb 3 oz (59.5 kg) SpO2 96% BMI 24.79 kg/m Primary Survey Airway Intact Breathing Spontaneous and Bilateral breath sounds Circulation Palpable bilateral femorals, Palpable bilateral radial, Palpable bilateral DP and Palpable bilateral PT Disability / Spine precautions GCS Score: Best Eye Response: Spontaneously (+4) Best Verbal Response: Oriented (+5) Best Motor Response: Obeys commands (+6) Secondary Survey Constitutional Alert, No acute distress and Oriented times 3 Head Atraumatic, Midface stable, No Cephalohematoma and No Lacerations noted Eye Extraocular muscles intact and Pupils equal and round ENT Oropharynx clear, no lacerations, No dental malocclusion, No dental fractures, No rhinorrhea and dry mucous membranes Cervical spine / Neck No cervical spine bony tenderness, crepitus, or stepoff and No nuchal rigidity Lungs Clear to auscultation and Breath sounds equal and symmetric Cardiac Regular rate and rhythm and No murmur, rub or gallop Abdomen Soft, Nontender, No distension and Normal bowel sounds No evidence of genital injury Back No midline bony tenderness to thoracic/lumbar/sacral spines Neuro Alert normally oriented Moves all 4 extremities symmetrically and equally to command Extremities Deformities, severe pain with movement right lower extremity, externally rotated, bilateral upper extremities without deformity, LLE without deformity, no tenderness to active of passive ROM Skin No wounds Psych Normal affect MEDICAL DECISION MAKING and ED COURSE Nursing triage and assessment notes reviewed and incorporated Interpretation of Results: Please see ED course for interpretation of labs and imaging EKG interpreted: Rhythm: Normal sinus rhythm and with frequent PVCs, Ventricular rate of 99, Normal axis, normal AL,prolonged QT, ST T changes: No ST-T wave changes No previous for comparison. Course: Therapeutics: Medications atorvastatin (LIPITOR) tablet (has no administration in time range) furosemide (LASIX) tablet (has no administration in time range) metoprolol (LOPRESSOR) tablet (25 mg Oral Hold/Not Given 01/01/22 0306) esomeprazole (NEXIUM) capsule (has no administration in time range) sertraline (ZOLOFT) tablet (has no administration in time range) lactated ringers iv infusion ( Intravenous IV New Bag 01/01/22324) acetaminophen (TYLENOL) tablet (650 mg Oral Given 01/01/22324) oxyCODONE immediate release tablet (5 mg Oral Given 01/01/22324) HYDROmorphone (DILAUDID) 0.2 MG/ML injection 0.2 mg (has no administration in time range) docusate sodium (COLACE) capsule (100 mg Oral Hold/Not Given 01/01/22304) senna (SENOKOT) tablet (has no administration in time range) ondansetron (ZOFRAN) 4 MG/2ML injection (has no administration in time range) dextrose 10 % iv infusion (has no administration in time range) Or glucagon (GLUCAGEN) 1 MG injection (has no administration in time range) Or dextrose (GLUTOSE) 40 % gel (has no administration in time range) Or dextrose (GLUTOSE) 40 % gel (has no administration in time range) insulin lispro (HumaLOG) 100 UNIT/ML injection (has no administration in time range) ondansetron (ZOFRAN) 4 MG/2ML injection (4 mg Intravenous Push Given 01/01/22 0043) Evaluated by EM attending Slim Shah Medical Decision Makin86 year old female with a past medical history as above presenting today at a category 2 trauma. Upon presentation to the Emergency Department, patient was assessed in the trauma bay and was found sara hemodynamically stable, normotensive, not tachycardic, hypoxic at 92% placed on 2L and afebrile.Physical exam as above. Trauma work up significant for right proximal femur fracture that is comminuted. Otherwise right lower extremity is neurovascularly intact. He was given Zofran in the trauma [place] for nausea. Workup at outside hospital otherwise negative for acute traumatic injury. EKG withoutischemia, was noted to have multiple PVCs, magnesium and potassium within normal limits outside hosp ital, troponin within normal limits outside hospital. Patient was admitted to the trauma surgery service for further management and workup of her right femur fracture. Plan: admit to trauma IMPRESSION AND DISPOSITION Clinical Impression Diagnosis Comment Fall, initial encounter [W19.XXXA] Other fracture of right femur, initial encounter for closed fracture (HCC) [S72.8X1A] Disposition: Admitted to Floor: Trauma Surgery Service. Case discussed with Dr. Bach at 0153 Patient Condition: stable The patient has received a medical screening examination and within reasonable clinical confidence the patient was stabilized within the capabilities of the emergency department and requires admission / observation. Counseling: Spoke with the patient and discussed today s findings, in addition to providing specific details for the plan of care and expected course. They were given the opportunity to ask questions. This note was created with the assistance of speech recognition software. Falguni Hall D.O. PGY3- Emergency Medicine Pager [phone] ATTENDING NOTE I was present with the resident during the history and exam and during the obtaining of the cloud andcritical portions of the history and exam. I reviewed the resident's documentation and discussed the case with the resident and agree with the resident's medical decision making as documented in the residents note. Miguel Angel Shah MD documented in this [id number] History and physical note* Ember Saravia MD - 01/01/2022 12:47 AM EDT [facility] DIVISION OF ACUTE CARE SURGERY TRAUMA SURGERY HISTORY AND PHYSICAL [facility] [id number] 01/01/22 BASIC INJURY INFORMATION: Level of activation: Category 2 Trauma Mode of transport: Ambulance: Transfer Mechanism of injury: Fall from ground level Complicating features: Not applicable Protective measures: Not applicable Date of Injury: 12/31/2021 Time of Injury: 6 PM Patient origin: Transfer from outside facility HISTORY OF PRESENT INJURY: Toribio Betts is a 86 year old female brought in by EMS as a transfer from [facility] following fall from standing. She fell and her leg twisted under her. She is on Eliquis. She had imaging at OSH including CT head, C spine, A and P. No T and L. Loss of consciousness: No Initial interventions (prior to ED disposition): None (Select all that apply.) Hemodynamic status witnessed in ED: Tachycardic (>100 bpm) (Select all that apply.) PRIMARY SURVEY: Airway: Intact Breathing: Normal Breath Sounds: Breath sounds equal bilaterally. Circulation: Pulses: Normal Skin: Normal skin color, texture, and turgor. No rashes or lesions. Disability: Pupils: PERRL GCS: Best Eyes: 4 Best Verbal: 5 Best Motor: 6 Total: 15 SECONDARY SURVEY: ED Triage Vitals [01/01/22 0045] BP Heart Rate Respiratory Rate Temp Temp src 177/85 (!) 102 16 -- -- SpO2 Weight Height Head Circumference Peak Flow 95 % -- -- -- -- Pain Score Pain Loc Pain Edu? Excl. in GC? 10 -- -- -- Neurologic: Alert and oriented, appropriate, moves all extremities. HEENT: Head: No lacerations, bone step-offs, or abrasions; midface stable to palpation Eyes: PERRLA, conjunctiva/corneas without lesions. Ears: Bilateral TMs could no be visualized Nose: Septum midline, no crepitus with motion. Throat: Oral cavity without trauma. Neck: No midline tenderness, lacerations, or wounds Chest: No crepitus or pain with palpation; no abrasions or contusions; no gross deformities Pulmonary: Breath sounds clear, symmetrical; no wheezes, rales, or consolidation Cardiovascular: Pulses: Bilateral radial, femoral, DP and PT pulses are normal. Abdomen: Non-distended; non-tender to palpation; no scars, lacerations, or contusions Rectal: Not performed. Pelvis/Perineum: Pelvis is stable to palpation and Additional findings: Severe TTP R hip Musculoskeletal: Back/Spine: Thoracolumbar spinal column non-tender and No step-off or deformity noted Extremities: Right LOWER extremity abnormality: Severe pain with movement, held in externally rotated position Adjunct Studies: None Check all that apply: None PAST MEDICAL HISTORY: Other: CAD, CHF, CVA, HLD, HTN, DM, AFib on Eliquis PAST SURGICAL HISTORY: Cardiac cath PRE-ADMISSION MEDICATIONS: Atorvastatin 40 mg HS Eliquis 2.5mg BID Isosorbide Dinitrate 30mg BID Lasix 20mg daily Metoprolol 25 BID Omeprazole 20mg daily Plavix 75mg daily Zoloft 25mg daily Anti-platelet use: Plavix, 12/31/21 Anti-coagulant use: Yes: Eliquis (name) and 12/31/21 (date of last use) ALLERGIES: Not on File SOCIAL HISTORY: Social History Socioeconomic History Marital status: Single Living status: Home Primary language: Yemeni Functional status: Independent Impairments: Hearing loss Assistive Devices Used: None FAMILY HISTORY: No family history on file. REVIEW OF SYSTEMS: Skin: negative Eyes: negative review of symptoms Ears/Nose/Throat: negative Respiratory: negative symptoms (no cough, hemoptysis, SOB, RODRÍGUEZ, PND, wheezing) Cardiovascular: negative symptoms (No CP/Pressure/Tightness, palpitations, orthopnea, PND, SOB, RODRÍGUEZ, edema, SCHNEIDER or vision change) Gastrointestinal: negative symptoms (no abdominal pain, anorexia, n/v, indigestion, constipation, or diarrhea) Genitourinary: no urinary symptoms Neurologic: negative symptoms (no syncope, seizures, weakness, gait problems, numbness, burning pain, tremors, or memory loss) R hip fracture Psychiatric: negative (no sleep disturbance, anxiety, memory loss, disorientation, inattention, feelings of depression) Hematologic/Lymphatic/Immunologic: negative (no anemia, bleeding, bruising) Endocrine: negative review of symptoms BASIC LABS No results found for this or any previous visit. RADIOLOGY: CT Chest: Lungs clear, no acute osseus findings CT Head: Chronic small vessel ischemic changes, no ICH. No fracture CT C-Spine: No acute fracture or subluxation, degenerative changes CT A/P: Displaced comminuted fracture of proximal R femoral shaft, additional hairline fracture of the intertrochanteric region ASSESSMENT: Toribio Betts is a 86 year old female w significant past cardiac history and pulmonary hypertension, presenting after a GLF at home. Resulting in a right sided femoral shaft fracture and hairline fracture int he intertrochanteric region. INJURIES: R femoral shaft fractrue INCIDENTALS: None PLAN: Neurologic - Analgesia: Standing tylenol, PRN Oxy, Dilaudid Continue home zoloft Respiratory - Bronchopulmonary Hygiene Incentive Spirometer Supplemental O2 PRN to target SpO2 92%. Cardiovascular - Monitor Vitals Continue home metoprolol, lasix, atorvastatin Hold Isosorbide for now Hold Eliquis/plavix for procedure Plan for ECHO tomorrow GI - Diet: Strict NPO Bowel regimen: Colace, Senna Zofran PRN for nausea Continue PPI Renal/ - mIVF cortes in place for: Beata-operative Measure I&O Daily BMP, Mg, Phos. Replace as needed (Maintain K >4, Phos >3, Mg >2) Endo - SSI, unclear if on DM meds at home Heme - No indication for transfusion at this time. Daily CBC ID - No indication for antibiotics at this time. MSK - Progressive mobility protocol PT/OT NWB RLE Plan for OR tomorrow with Ortho, pending ECHO Prophylaxis: VTE - SCDs only. Hold chemoprophylaxis for OR in setting of Eliquis use Stress ulcer - No indication for stress ulcer prophylaxis at this time. Plan was discussed with fellow, Dr. Saravia Final ED disposition: Regular nursing floor Chaz Akila Mercedes MD Fellow Addendum Above resident note reviewed; edits and alterations to the diagnosis and plan as above. Ember Saravia SICU / TICU Fellow [phone] Associated attestation - Navin Matson DO - 01/01/2022 5:07 PM EDT Teaching Physician Note: I saw and evaluated the patient. I personally obtained the cloud and critical portions of the historyand physical exam. I reviewed the resident's documentation and discussed the patient with the resident. I agree with the resident's medical decision making as documented in the resident's note. Transf er from [facility]. Complex right pelvic fracture. Neurovascularly intact. Admit to our service given the age and complexity of the fracture. Surgery pending preop evaluation and workup. L. Ray White, DO Critical care / Trauma / Emergency general surgery My pager: [phone] ACS resident: -[phone] (admitted) / -[phone] (new pts) [facility] Work Phone: 1(251) 346-710205-30-2022 Evaluation + Plan noteExtracted from: Title:ED Note Author:Bushra Mary Date:12/31/21 PRIMARY IMPRESSION: Right fe moral shaft fracture (S72.301A) Ordered: ABO/Rh ABO/Rh History Check Antibody Screen Basic Metabolic Panel Blood Bank ID# CBC w/ Auto Diff Consult to Trauma CT Abdomen/Pelvis w/ Contrast CT Chest w/ Contrast CT Head or Brain w/o Contrast CT Spine Cervical w/o Contrast Drug Screen Urine ECG 12 Lead Adult ED Cardiac Monitoring Ethanol Level Hepatic Function Panel Lactic Acid Lipase Level Magnesium Level NPO Diet Oxygen Therapy PT & PTT Pulse Oximetry Continuous Saline Lock Insert Troponin UA With Cult Reflex XR Chest Single View XR Femur Min 2 Views Right XR Hip 1 View Right + Pelvis Future Appointments Appointment Date:02/19/2022 11:00:00 AM Scheduled Provider:Janna MANN MD Location:[facility] Appointment Type: Open Future Scheduled Tests Laboratory* HgbA1c 06/27/21 * CBC w/ Auto Diff 06/27/21 * Comprehensive Metabolic Panel 06/27/21 * Lipid Panel 06/27/21 [facility]03-04-2022 NoteEchocardiology Procedure Exam Date/Time Accession # Ordering Echo Transthoracic 10/01/2021 12:21 EST [id number] Angelina SMILEY CNP Complete CPT code 89310 Reason for Exam (Echo Transthoracic Complete) I25.10;Mitral valve disorder Report Patient Height: 61 in Patient Weight: 134 lb Blood Pressure: 150/82 1. LVIDd m(3.8-5.8cm)w(3.8-5.2cm) 4.4 cm 2. LVIDs m(2.1-3.9cm)w(2.2-3.5cm) 2.8 cm 3. IVSd m(0.6-1.0cm) 0.84 cm 4. LVPWd (0.6-1.0cm) 0.91 cm 5. LAs (2.7-4.0cm) 3.41 cm 6. LA Vol. Index (16-34 mL/m2) 32 mL/m2 7. AOd Root (3.0-3.4cm) 3.0 cm 8. AO Annulus (2.3-2.6cm) _ cm 9. AO Sinus of Valsalva (3.0-3.4cm) _ cm 10. AO Sinotubular Junction (2.6-2.9cm) _ cm 11. Ascending Aorta (2.7-3.0cm) 3.4 cm 12. RVIDd (2.0-3.0cm) 2.2 cm 13. AoV Peak Gradient _ mmHg 14. AoV Mean Gradient _ mmHg 15. LVOT Diam 2.3 cm INDICATIONS : Coronary artery disease. PROCEDURE DETAILS : The patient was imaged per protocol using two-dimensional, color Doppler, pulsed wave Doppler, continuous wave Doppler and M-Mode imaging. Based on the excellent images obtained the following findings can be made. FINDINGS : LV: The left ventricle is normal in size and systolic function. Estimated ejection fraction of 55-60%. There is no left ventricular hypertrophy. There are no wall motion abnormalities. Bennett tolic filling pattern is pseudonormal. RV: The right ventricle is normal in size and systolic function. LA: The left atrium is moderately to severely dilated. RA: The right atrium is normal. Pericardium: The pericardium is normal. IAS: The interatrial septum is unremarkable. Aorta: The aorta is normal. Echocardiology Report AOV: The aortic valve is structurally trileaflet with no stenosis and trivial regurgitation. MV: The mitral valve is structurally normal with no stenosis and mild to moderate regurgitation. PV: The pulmonic valve is structurally normal with no stenosis and trivial regurgitation. TV: The tricuspid valve is structurally normal with no stenosis and mild regurgitation. Estimated RVSP is 25 mm Hg. CONCLUSIONS : 1. Normal LV and RV. 2. Pseudonormal diastolic filling. 3. Left atrial enlargement. 4. Mild to moderate mitral regurgitation. 5. Mild tricuspid regurgitation. 6. Estimated RVSP is normal. FINAL REPORT Signed (Electronic Signature): 10/05/2021 8:53 am Signed by: Axel Perales MD Transcribed by: samira Technologist[facility] Note PROCEDURE: 48-hour Holter monitor REFERRING PHYSICIAN: FRENCH Morris INDICATIONS: Atrial fibrillation. PROCEDURE DETAILS: The patient was recorded for 48-hours 4 minutes capturing 195, 295 beats which was an average heart rate of 67 beats per minute, minimum heart rate of 49 beats per minute, maximum heart rate of 97 beats per minute. There were 26,932 ventricular ectopic beats which was 13.8% of the total. There were three runs of ventricular tachycardia with the longest being 4 beats, however all of them slow at 88 beats per minute. There were 46 supraventricular ectopic beats. There was no atrial fibrillation. Graphical representation of heart rate showed very blunted chronotropy with heartrate being between 70 and 80 for the majority of the recording and never over 100. Selected strips showed isolated premature ventricular contractions, bigeminy, trigeminy as well as short runs 3-4 beats of premature ventricular contractions. CONCLUSIONS: Abnormal Holter monitor for multiple premature ventricular contractions totalling 13.8% of heart beats as well as some slow runs 3-4 beats of ventricular arrhythmia. Clinical correlationis suggested. READ BY: Axel Perales M.D. ls Dictated: 09/26/2021 [id number] Transcribed: 09/26/2021 cc:FIORDALIZA MorrisWadsworth-Rittman HospitalComment on above:Result Comment: Electronically Signed By: Axel Perales MD\.br\Date and Time Signed: 09/26/21 12:25 ESTEvaluation + Plan note Future Appointments Appointment Date:01/30/2022 09:30:00 AM Scheduled Provider:RINA BHATIA PA-C [facility] New Patient Appointment Date:02/19/2022 11:00:00 AM Scheduled Provider:Janna MANN MD Location:[facility] Appointment Type:FM Open Future Scheduled Tests Laboratory* HgbA1c 06/27/21 * CBC w/ Auto Diff 06/27/21 * Comprehensive Metabolic Panel 06/27/21 * Lipid [facility]27/21 [facility] Future Appointments Appointment Date:03/13/2022 02:00:00 PM Scheduled Provider:RINA BHATIA PA-C Location:[facility] Appointment Type:URO Office Visit Future Scheduled Tests Laboratory* HgbA1c 06/27/21 * CBC w/ Auto Diff 06/27/21 * Comprehensive Metabolic Panel 06/27/21 * Lipid Panel 06/27/21 [facility] evaluation + Plan note Future Appointments Appointment Date:03/13/2022 02:00:00 PM Scheduled Provider:RINA BHATIA PA-C Location:[facility] Appointment Type:URO Office Visit Appointment Date:04/18/2022 02:30:00 PM Scheduled Provider:Angelina SMILEY CNP [facility] Type:Cardiology Follow Up (FT) Future Scheduled Tests Laboratory* HgbA1c 06/27/21 * CBC w/ Auto Diff 06/27/21 * Comprehensive Metabolic Panel 06/27/21 * Lipid Panel 06/27/21 [facility] Future Appointments Appointment Date:10/10/2022 01:15:00 PM Scheduled Provider:Angella MAYERS, Axel Bravo [facility] Type:Cardiology Follow Up (FT) Future Scheduled Tests Laboratory* HgbA1c 06/27/21 * CBC w/ Auto Diff 06/27/21 * Comprehensive Metabolic Panel 06/27/21 * Lipid Panel 06/27/21 [facility] noteNo Assessments Information Available [facility] Diagnosis Other fracture of right femur, initial encounter for closed fracture (HCC)- Primary Fall, initial encounter Ventricular premature depolarization Other premature beats Other hypertrophic cardiomyopathy (HCC) Other hypertrophic cardiomyopathy Abnormal electrocardiogram (ECG) (EKG) [facility] Diagnosis Exudative age-related macular degeneration of right eye with active choroidal neovascularization (HCC) (CMS/HCC)- Primary 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) Dry eyes Unspecified tear film insufficiency 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 documented in this encounter [facility] N[facility]ative - Reported* Type Description Date Medical History type II diabetes Medical History Atrial fibrillation Medical History hypertension Medical History Heart Failure/Diastolic Medical History cardiomyopathy Medical History chronic depression Medical History reflux Medical History hypo-osmolality Surgical History right femur nailing at [facility] Other Hospital course Narrative No data available for this section [facility] No data available for this section [facility] No data available for this section [facility] Summary Purpose Family History No Family History Records FoundNo Family History Records FoundNo Family History Records FoundNo Family History Records FoundNo Family History Records Found Advance Directives No Advanced Directives Records FoundLatest Code Status on File Code Status Date Activated Date Inactivated Comments Full Code 01/01/2022 3:05 AM Documentation of decision pr ocess for this code status: Discussed with patient or surrogate. Thi s is the code status chosen by the patient/surrogate. Latest Code Status on File Code Status Date Activated Date Inactivated Comments Full Code 01/01/2022 3:05 AM 01/09/2022 7:41 PM Reason for Referral Specialty Diagnoses / Procedures Referred By Contac t Referred To Contact Radiology Procedures XR CHEST 1 VIEW AP OR PA XR CHEST 1 VIEW AP OR PA [address]p [address] [place] [address] [facility] DI[facility]STIC [facility] [address] [place] [address] [place] [address] Referral ID Status Reason Start Date Expiration Date Visits Re quested Visits Authorized [id number] Closed 01/07/2022 01/07/2023 1 1 Specialty Diagnoses / Procedures Referred By Contac t Referred To Contact Radiology Procedures XR FLUORO SUPPORT ONLY IN SURGERY XR RT FEMUR ONE VIEW Trever Umana MD [address] [place] [address] [facility]ST[facility] [address] [place] [address] [place] [address] Referral ID Status Reason Start Date Expiration Date Visits Re quested Visits Authorized [id number] Closed 01/01/2022 01/01/2023 1 1 Specialty Diagnoses / Procedures Referred By Contac t Referred To Contact Radiology Procedures CT BODY IMAGE IMPORT(AUGUSTIN) DOWNLOAD POWERSHARE IMAGES TO Ron Haq MD [address] [place] [address] [address] [place]OG[address] [id number] [facility] [address] [place] [address] [place] [address] Referral ID Status Reason Start Date Expiration Date Visits Re quested Visits Authorized [id number] Closed 01/01/2022 01/01/2023 1 1 Specialty Diagnoses / Procedures Referred By Contac t Referred To Contact Radiology Procedures XRAY CHEST IMAGE IMPORT(AUGUSTIN) Ron Bach MD [address] [place] [address] [place] [address] [facility] [address] [place] [address] [place] [address] Referral ID Status Reason Start Date Expiration Date Visits Re quested Visits Authorized [id number] Closed 01/01/2022 01/01/2023 1 1 Specialty Diagnoses / Procedures Referred By Contac t Referred To Contact Radiology Procedures XRAY UPPER EXTREMITY IMAGE IMPORT(AUGUSTIN) Ron Bach MD [address] [place] [address] [place] [address] [facility] [address] [place] [address] [place] [address] Referral ID Status Reason Start Date Expiration Date Visits Re quested Visits Authorized [id number] Closed 01/01/2022 01/01/2023 1 1 Specialty Diagnoses / Procedures Referred By Contac t Referred To Contact Radiology Procedures XRAY PELVIS IMAGE IMPORT(AUGUSTIN) Ron Bach MD [address] [place] [address] [place] [address] [facility] [address] [place] [address] [place] [address] Referral ID Status Reason Start Date Expiration Date Visits Re quested Visits Authorized [id number] Closed 01/01/2022 01/01/2023 1 1 Specialty Diagnoses / Procedures Referred By Contac t Referred To Contact Radiology Procedures XRAY LOWER EXTREMITY IMAG IMPORT(AUGUSTIN) Ron Bach MD [address] [place] [address] [place] [address] [facility] [address] [place] [address] [place] [address] Referral ID Status Reason Start Date Expiration Date Visits Re quested Visits Authorized [id number] Closed 01/01/2022 01/01/2023 1 1 Specialty Diagnoses / Procedures Referred By Contac t Referred To Contact Radiology Procedures CT NEURO IMAGE IMPORT(AUGUSTIN) Ron Bach MD [address] [place] [address] [place] [address] [facility] SCAN Referral ID Status Reason Start Date Expiration Date Visits Re quested Visits Authorized [id number] Closed 01/01/2022 01/01/2023 1 1 Referral ID Status Reason Start Date Expiration Date Visits Re quested Visits Authorized [id number] Closed 01/01/2022 01/01/2023 1 1 Specialty Diagnoses / Procedures Referred By Marlin t Referred To Contact Radiology Procedures CT BODY IMAGE IMPORT(AUGUSTIN) Ron Bach MD [address] [place] [address] [place] [address] [facility] [address] SCAN Referral ID Status Reason Start Date Expiration Date Visits Re quested Visits Authorized [id number] Closed 01/01/2022 01/01/2023 1 1 Specialty Diagnoses / Procedures Referred By Contact Referred To Contact Cardiovascular Testing Emergency Medicine [address] [place] [address] [facility] CARD NON INVASIVE [address] [place] [address] Referral ID Status Reason Start Date Expiration Date Visits Re quested Visits Authorized [id number] Closed 01/01/2022 01/01/2023 1 1 Scheduling Instructions 1. Take your medicines as prescribed by your doctor. (If you take a water pill , do not take it the morning of the test. You may take it when you return home). 2. You may eat meals and drink fluids at your normal times. 3. This test takes approximately one hour. 4. Please call the [facility] at [phone] (BEAT) if you are unable to keep your appointment. Comments Insert IV access & flush with 3ml of 0.9% sodium chloride PRN to keep patent, if not already present for LV contrast with Definity and/or saline contrast. Please indicate height and weight if it does not appear below. Blood pressure 157/81, pulse 99, temperature 97.7 F (36.5 C), temperature source Oral, resp. rate 17, SpO2 98 %. ACUTE TRAUMA - Fall Hip FX @PROBHOSP@ Referral ID Status Reason Start Date Expiration Date V isits Requested Visits Authorized [id number] Authorized 01/01/2022 01/01/2023 1 1 Question Answer Clinical Indication for procedure pre-op clearance. h/o A-fib, valve disease, heart failure What day do you want the patient scheduled for? 01/01/2022 Additional Source Comments INFORMATION SOURCE (unrecogn ized section and content) DATE CREATED AUTHOR 12/12/2020 [facility] DATE CREATED AUTHOR AUTHOR'S ORGANIZ ATION 01/19/2022 [facility] [employer] [facility] DATE CREATED AUTHOR AUTHOR'S ORGANIZ ATION 05/03/2022 Melchor Mcdonald [facility] DATE CREATED AUTHOR AUTHOR'S ORGANIZ ATION 08/06/2022 [facility] DATE CREATED AUTHOR AUTHOR'S ORGANIZ ATION 09/18/2023 [facility] EPIC Reason for Visit (unrecogniz ed section and content) Reason Comments Fall Cat 2- Pt tx from [facility] via [facility], per report pt fell, on eliquis, right femur fx found at [facility]. Specialty Diagnoses / Procedures Referred By Contac t Referred To Contact Emergency Medicine Diagnoses Other fracture of right femur, initial encounter for closed fracture (HCC) TRAUMA - Fall Hip FX Procedures [facility] [employer] [place] [address] Phone: [phone] [employer] [place] [place] [address] Phone: [phone] Referral ID Status Reason Start Date Expiration Date Visits Re quested Visits Authorized [id number] 3 Reason Comments Follow-up Scheduled Active and Recently Administ ered Medications (unrecognized section and content) Medication Order 01/07/2022 01/08/2022 01/09/2022 acetaminophen (TYLENOL) tablet 650 mg, Oral, EVERY 4 HOURS, First dose on Fri01/01/22 at 0306, Until Discontinued 0130 (Hold/Not Given - Provider: Adolfo Yu RN - Reason: Patient refused)0530 (Hold/Not Given - Provider: Adolfo Yu RN - Reason: Patient sleeping)0929 (Given - Provider: Shakira Johnson RN)1432 (Given - Provider: Shakira Johnson RN)1803 (Given - Provider: Shakira Johnson RN)2158 (Given - Provider: Sapna Snyder RN) 0130 (Hold/Not Given - Provider: Sapna Snyder RN - Reason: Patient sleeping)0415 (Given - Provider: Sapna Snyder RN)0901 (Given - Provider: Eun Alicea RN)1406 (Given - Provider: Eun Alicea RN)1738 (Given - Provider: Eun Alicea RN)2216 (Given - Provider: Sapna Snyder RN) 0211 (Given - Provider: Sapna Snyder RN)0558 (Given - Provider: Sapna Snyder RN)0850 (Hold/Not Given - Provider: Chai Garcia RN - Reason: Not indicated)1303 (Given - Provider: Chai Garcia RN)1724 (Given - Provider: Chai Garcia RN)2130 (Due) atorvastatin (LIPITOR) tablet 40 mg, Oral, AT BEDTIME, First dose on Fri01/01/22 at 2200, Until Discontinued 2157 (Given - Provider: Sapna Snyder RN) 221 (Given - Provider: Sapna Snyder RN) 2200 (Due) docusate sodium (COLACE) capsule 100 mg, Oral, 2 TIMES DAILY, First dose on Fri01/01/22 at 0305, Until Discontinued 09 (Given - Provider: Shakira Johnson RN)215 (Given - Provider: Sapna Snyder RN) 0901 (Given - Provider: Eun Alicea RN)2215 (Given - Provider: Sapna Snyder RN) 0850 (Given - Provider: Chai Garcia RN)2100 (Due) enoxaparin (LMWH) anti-fxa lab draw (COMPLETED) Other, ONCE, 1 dose, On Fri01/08/22 at 1300 1328 (Given - Provider: Eun Alicea RN) enoxaparin (LOVENOX) 30 MG/0.3ML injection 30 mg 30 mg, Subcutaneous, 2 TIMES DAILY, First dose on Fri01/07/22 at 0830, Until Discontinued 09 (Given - Provider: Shakira Johnson RN)215 (Given - Provider: Sapna Snyder RN) 0901 (Given - Provider: Eun Alicea RN)2216 (Given - Provider: Sapna Snyder RN) 0850 (Given - Provider: Chai Garcia, MARIA FERNANDA)2100 (Due) esomeprazole (NEXIUM) capsule 20 mg, Oral, DAILY 30 MIN BEFORE BREAKFAST, First dose on Fri01/01/22 at 0830, Until Discontinued 928 (Given - Provider: Shakira Johnson RN) 0901 (Given - Provider: Eun Alicea RN) 0849 (Given - Provider: Chai Garcia RN) furosemide (LASIX) tablet 20 mg, Oral, DAILY, First dose on Fri01/01/22 at 0900, Until Discontinued 928 (Given - Provider: Shakira Johnson RN) 0901 (Given - Provider: Eun Alicea RN) 0850 (Given - Provider: Chai Garcia RN) insulin lispro (HumaLOG) 100 UNIT/ML injection 1-7 Units, Subcutaneous, 3 TIMES DAILY BEFORE MEALS, First dose on Fri01/01/22 at 0800, Until Discontinued 0800 (Hold/Not Given - Provider: Shakira Johnson RN - Reason: Not indicated - Comment: BS-135)1234 (Given - Provider: Shakira Johnson RN - Comment: BS-162)1700 (Hold/Not Given - Provider: Shakira Johnson RN - Reason: Not indicated - Comment: BS-148) 0800 (Hold/Not Given - Provider: Eun Alicea RN - Reason: Not indicated - Comment: BS 145)1406 (Given - Provider: Eun Alicea RN - Comment: BS 180)1700 (Hold/Not Given - Provider: Eun Alicea RN - Reason: Not indicated - Comment: BS 149) 0849 (Given - Provider: Chai Garcia RN)1303 (Given - Provider: Chai Garcia RN)1700 (Hold/Not Given - Provider: Chai Garcia RN - Reason: Not indicated) metoprolol (LOPRESSOR) tablet 25 mg, Oral, 2 TIMES DAILY, First dose on Fri01/01/22 at 0306, Until Discontinued 928 (Given - Provider: Shakira Johnson RN)2157 (Given - Provider: Sapna Snyder RN) 09 (Given - Provider: Eun Alicea RN)221 (Given - Provider: Sapna Snyder RN) 0849 (Given - Provider: Chai Garcia, MARIA FERNANDA)2100 (Due) oxyCODONE immediate release tablet (COMPLETED) 5 mg, Oral, ONCE, 1 dose, On Fri01/09/22 at 1530 1514 (Given - Provider: Chai Garcia RN) polyethylene glycol (MIRALAX) 17 g packet 17 g, Oral, DAILY, First dose on Fri01/07/22 at 1000, Until Discontinued 1000 (Given - Provider: Shakira Johnson RN) 0901 (Given - Provider: Eun Alicea RN) 0900 (Hold/Not Given - Provider: Chai Garcia RN - Reason: Not indicated) senna (SENOKOT) tablet 8.6 mg, Oral, AT BEDTIME, First dose on Fri01/01/22 at 2200, Until Discontinued 2157 (Given - Provider: Sapna Snyder RN) 2215 (Given - Provider: Sapna Snyder RN) 2200 (Due) sertraline (ZOLOFT) tablet 25 mg, Oral, DAILY, First dose on Fri01/01/22 at 0900, Until Discontinued 928 (Given - Provider: Shakira Johnson RN) 0903 (Given - Provider: Eun Alicea RN) 0849 (Given - Provider: Chai Garcia RN) PRN Medication Order 01/07/2022 01/08/2022 01/09/2022 bisacodyl (DULCOLAX) 10 MG suppository 10 mg, Rectal, DAILY PRN, Starting on Fri01/07/22 at 0932, Until Discontinued, Constipation 1022 (Given - Provider: Shakira Johnson RN) dextrose (GLUTOSE) 40 % gel(Linked Group 1) 15 g of glucose, Buccal, PRN, Starting on Fri01/01/22 at 0304, Until Discontinued, blood glucose between 50 - 69 mg/dL, and with no IV access, alert and able to swallow. dextrose (GLUTOSE) 40 % gel(Linked Group 1) 30 g of glucose, Buccal, PRN, Starting on Fri01/01/22 at 0304, Until Discontinued, blood glucose of 49mg/dL or less, and with no IV access, alert and able to swallow. dextrose 10 % iv infusion(Linked Group 1) 125 mL, Intravenous, at 999 mL/hr, PRN, Starting on Fri01/01/22 at 0304, Until Discontinued, For blood glucose less than 70 mg/dL, with IV access and with loss of consciousness or unable to swallow or NPO glucagon (GLUCAGEN) 1 MG injection(Linked Group 1) 1 mg, Subcutaneous, PRN, Starting on Fri01/01/22 at 0304, Until Discontinued, For blood glucose less than 70 mg/dL and with no IV access with loss of consciousness or alert and unable to swallow. ondansetron (ZOFRAN) 4 MG/2ML injection 4 mg, Intravenous Push, EVERY 4 HOURS PRN, Starting on Fri01/01/22 at 0305, Until Discontinued, Nausea, Vomiting Linked Groups Order Group 1: dextrose 10 % iv infusionJump to med 125 mL, Intravenous, at 999 mL/hr, PRN, Starting on Fri01/01/22 at 0304, Until Discontinued, For blood glucose less than 70 mg/dL, with IV access and with loss of consciousness or unable to swallow or NPO Or glucagon (GLUCAGEN) 1 MG injectionJump to med 1 mg, Subcutaneous, PRN, Starting on Fri01/01/22 at 0304, Until Discontinued, For blood glucose less than 70 mg/dL and with no IV access with loss of consciousness or alert and unable to swallow. Or dextrose (GLUTOSE) 40 % gelJump to med 15 g of glucose, Buccal, PRN, Starting on Fri01/01/22 at 0304, Until Discontinued, blood glucose between 50 - 69 mg/dL, and with no IV access, alert and able to swallow. Or dextrose (GLUTOSE) 40 % gelJump to med 30 g of glucose, Buccal, PRN, Starting on Fri01/01/22 at 0304, Until Discontinued, blood glucose of 49mg/dL or less, and with no IV access, alert and able to swallow. Care Team (unrecognized sect ion and content) [employer] Relationship Specialty Start Date End Date Janna Mann MD [address] [place] [address] PCP - General Internal Medicine 03/12/23 FOR RECORDS PERTAINING TO PATIENTS WHO ARE OR HAVE BEEN ENROLLED IN A CHEMICAL DEPENDENCY/SUBSTANCEABUSE PROGRAM, SOME INFORMATION MAY BE OMITTED. This clinical summary was aggregated from multiple sources. Caution should be exercised in using it in the provision of clinical care. This summary normalizes information from multiple sources, and as a consequence, information in this document may materially change the coding, format and clinical context of patient data. In addition, data may be omitted in some cases. CLINICAL DECISIONS SHOULD BE BASED ON THE PRIMARY CLINICAL RECORDS. [employer] provides no warranty or guarantee of the accuracy or completeness of information in this document.
[2023-12-04 20:13] LABS: Alanine Aminotransferase 33 U/L (14-59); Albumin Globulin Ratio 0.8; Albumin Level 3.3 g/dL (3.4-5.0); Alkaline Phosphatase 83 U/L (46-116); Anion Gap 10.1; Aspartate Amino Transferase 33 U/L (15-37); BUN Creatinine Ratio 15.6; Bilirubin Total 0.6 mg/dL (0.2-1.0); Calcium 9.4 mg/dL (8.5-10.1); Carbon Dioxide 28.9 mmol/L (21.0-32.0); Chloride 103 mmol/L (98-107); Estimated GFR (African America >60 (>=60); Estimated GFR (Non-African Ame 59 (>=60); Glucose 194 mg/dL (74-106); Sodium 138 mmol/L (136-145); Total Protein 7.3 g/dL (6.4-8.2)
[2023-12-04 20:18] LABS: Lactate/Lactic Acid 2.7 mmol/L (0.4-2.0)
[2023-12-04 20:19] LABS: Troponin I High Sensitivity 12.5 pg/mL (4.0-51.3)
[2023-12-04 20:20] LABS: INR 1.06; Prothrombin Time 11.2 sec (9.0-11.6)
[2023-12-04] MEDS: ONDANSETRON PF 4 MG/2 ML VIAL IV (20:33)
[2023-12-04] MEDS: FENTANYL CITRATE/PF 100 MCG/2 ML VIAL 25 MCG IV (20:33)
[2023-12-04 21:41] VITALS: BP 141/71; PULSE 77; O2SAT 95
--- NOTE | 2023-12-04 22:22 | XR_ITS ---
The [address] [address] Patient Name: TORIBIO MASTERS MRN: [id number] date: 1935 Sex: F Assigned Patient Location: ED.MAIN Current Patient Location: [place] Accession/Order Number: [id number] Exam Date: 12/04/2023 22:50 Report Date: 12/04/2023 23:23 At the request of: MARILYNN CHUN Procedure: XR lumbar spine 2-3V EXAMINATION:XR lumbar spine 2-3V HISTORY:fall COMPARISON:None TECHNIQUE:3 projections of the lumbar spine are submitted. FINDINGS: There is grade 1 anterolisthesis of L4-L5 measuring 9 mm. There is a compression deformity of the L1 vertebral body of indeterminate age. This involves approximately 30% loss of height. No acute compression fractures are present elsewhere. There is moderate to severe multilevel degenerative disc disease most severe at the lumbosacral junction. There is heavy atherosclerotic plaque in the adjacent abdominal aorta. There is mild dextroscoliosis of the lumbar spine. XR/XR lumbar spine 2-3V IMPRESSION: 1. Grade 1 anterolisthesis of L4-L5 measuring 9 mm with moderate multilevel degenerative disc disease. 2. Age indeterminate compression deformity of the L1 vertebral body involving approximately 30% loss of height. Correlate with physical exam findings for any tenderness. Electronically authenticated by: SHOAIB GUERRA Date: 12/04/2023 23:23
[2023-12-04 22:26] VITALS: BP 175/81; PULSE 79; O2SAT 98
[2023-12-04 23:19] LABS: Lactate/Lactic Acid 1.9 mmol/L (0.4-2.0)
[2023-12-04 23:20] VITALS: BP 162/82; TEMP 36.3; O2SAT 92; BMI 21.3
--- OUTSIDE RECORDS SUMMARY | 2023-12-04 23:21 | XMS_ITS | CCD ---
Author Organization [facility] Care Team Providers Care Bookstore Clerk Name Role Phone Cristel Edgar Attending Provider Janna MANN Primary Care Physician [phone] Unavailable Primary Care Provider UnavailJANNA Kruse Referring [...] Attending Unavailable STANG, Angelina L Referring Unavailable BLAJIT, Angelina L Admitting Unavailable Axel Perales Consulting [...] Referring Unavailable NONE, XXXX Referring Unavailable STANG, Aneglina L Attending Unavailable STANG, Angelina L Admitting [...] Mann MD, Janna Bhagat Primary Care Provider MIGUEL ANGEL GARCÍA Attending Unavailable MIGUEL ANGEL GARCÍA Attending Unavailable Allergies Allergy Classification Reported Allergen(s) Allergy Type Date of Onset Reaction(s) Facility (6 sources) Pravastatin; Translations: [PRAVASTATIN] Drug Allergy 6 Itching, Other [facility] (1 source) Pravastatin Drug Allergy [facility] Repository Medications Current Medications Medication Drug Class(es) Dates Sig (Normalized) Sig (Original) acetaminophen 325 mg chewable tablet (9 sources) Start: 01-30-2022 take 1 mg by mouth every six hours acetaminophen 325 mg oral tablet, chewable mg tab(s), Oral, q6hr, Refills(s) 0 Start Date: 01/30/22 Status: Ordered Start: 01-09-2022 take 2 tablets by mo [facility] every four hours acetaminophen (TYLENOL) 325 mg [...] as needed Orally every 4 hrs Active [id number] 200 actuat albuterol 0.09 mg/actuat metered dose [...] Bedtime, # 90 tab(s), Refills(s) 1, Pharmacy: [facility], 154, cm, 10/09/21 14:37:00 EST, [...] Daily, # 90 tab(s), Refills(s) 3, Pharmacy: [facility], 156, cm, 10/23/21 15:51:00 EDT, [...] Ordered Start: 01-01-2022 take 1 capsule by [facility] twice daily docusate sodium (COLACE) 100 MG capsule Take 1 Capsule by mouth 2 times daily. 60 Capsule 3 01/09/2022 Active take 1 capsule by [facility] every twenty-four hours Docusate Sodium 100 MG [...] BID, # 90 tab(s), Refills(s) 3, Pharmacy: [facility] Start Date: 02/16/19 Status: Ordered metoprolol tartrate 25 mg oral tablet (12 sources) beta-Adrenergic Mary Start: 02-10-2023 metoprolol tartrate (Lopressor) 25 MG tablet Start: 10-09-2021 take 1 tablet by alejandra th twice daily Metoprolol tartrate 25 mg Tab 25 mg = 1 tab(s), Oral, BID, # 60 tab(s), Refills(s) 3, Pharmacy: [facility], 154, cm, 10/09/21 14:37:00 EST, [...] Daily, # 90 cap(s), Refills(s) 1, Pharmacy: [facility], 154, cm, 10/09/21 14:37:00 EST, [...] 20 MG EC tablet polyethylene glycol [id number] mg powder for oral solution (4 sources) [...] 5 UNIT/0.1ML as directed Intradermal Active sennosides, fci 8.6 mg oral tablet (5 sources) Start: 2 take 1 tablet by mouth at bedtime senna (SENOKOT) 8.6 MG tablet Take 1 Tablet by mouth at bedtime. 30 Tablet 0 01/09/2022 Active take 2 tablets by mo [facility] every twenty-four hours Senna 8.6 MG 2 tablets at bedtime as needed Orally Once a day Active sertraline 25 mg oral tablet (12 sources) Serotonin Reuptake Inhibitor Start: 02-17-2023 sertraline (Zoloft) 25 MG tablet Start: 05-07-2021 take 1 tablet by [facility] once daily in the evening Zoloft 25 mg Tab 25 mg = 1 tab(s), Oral, Daily, in the evening, # 90 tab(s), Refills(s) 3, Pharmacy: [facility], 154, cm, 03/21/21 11:39:00 EDT, [...] 01-05-2022 5 mg, Oral, EVERY 4 HOURS IN N, Starting on Fri01/01/22 at 0304, Until [...] Coronary arteriosclerosis; Translations: [Atherosclerotic heart disease of [place] coronary artery without angina pectoris] Onset: 2 [...] 04-03-2020 Chronic Other aftercare (1 source) 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 Krystal Glass Basophils/100 WBC (Bld) 0.5 % Normal 0.2-2.0 [facility] Comment on above: Performed By: #### U MICRO, ERUR #### [facility] [address] [place] [address] Dr. Krystal Glass EO # 0.1 103/ul Normal 0.0-0.7 [facility] Comment on above: Performed By: #### U MICRO, ERUR #### [facility] [address] [place] [address] Dr. Krystal Glass Eosinophils/100 WBC (Bld) 1.3 % Normal 0.9-7.0 [facility] Comment on above: Performed By: #### U MICRO, ERUR #### [facility] [address] [address] [address] Krystal Glass Erythrocyte distribution width (RBC) [Ratio] 12.5 % Normal 11.0-15.0 [facility] Comment on above: Performed By: #### U MICRO, ERUR #### [facility] [address] [place] [address] Dr. Krystal Glass Hematocrit (Bld) [Volume fraction] 35.9 % Critically low 36.0-48.0 [facility] Comment on above: Performed By: #### U MICRO, ERUR #### [facility] [address] [place] [address] Dr. Krystal Glass Hemoglobin (Bld) [Mass/Vol] 12.3 g/dL Normal 12.0-16.0 [facility] Comment on above: Performed By: #### U MICRO, ERUR #### [facility] [address] [place] [address] Dr. Krystal Glass IG # 0.01 10e3/ul Normal 0.00-0.03 [facility] Comment on above: Performed By: #### U MICRO, ERUR #### [facility] [address] [place] [address] Dr. Krystal Glass IG % 0.1 % Normal 0.0-0.5 [facility] Comment on above: Performed By: #### U MICRO, ERUR #### [facility] [address] [place] [address] Dr. Krystal Glass LYMPH # 1.7 103/ul Normal 1.2-3.8 [facility] Comment on above: Performed By: #### U MICRO, ERUR #### [facility] [address] [place] [address] Dr. Krystal Glass Lymphocytes/100 WBC (Bld) 20.4 % Critically low 20.5-60.0 [facility] Comment on above: Performed By: #### U MICRO, ERUR #### [facility] [address] [place] [address] Dr. Krystal Glass MANUAL DIFF REQ NO Normal [facility] Comment on above: Performed By: #### U MICRO, ERUR #### [facility] [address] [place] [address] Dr. Krystal Glass MCH (RBC) [Entitic mass] 30.0 pg Normal 26.7-34.0 [facility] Comment on above: Performed By: #### U MICRO, ERUR #### [facility] [address] [place] [address] Dr. Krystal Glass MCHC (RBC) [Mass/Vol] 34.3 g/dL Normal 29.9-35.2 [facility] Comment on above: Performed By: #### U MICRO, ERUR #### [facility] [address] [place] [address] Dr. Krystal Glass MCV (RBC) [Entitic vol] 87.6 fL Normal 81.0-99.0 [facility] Comment on above: Performed By: #### U MICRO, ERUR #### [facility] [address] [place] [address] Dr. Krystal Glass MONO # 0.7 103/ul Normal 0.3-0.8 [facility] Comment on above: Performed By: #### U MICRO, ERUR #### [facility] [address] [place] [address] Dr. Krystal Glass Monocytes/100 WBC (Bld) 8.0 % Normal 1.7-12.0 [facility] Comment on above: Performed By: #### U MICRO, ERUR #### [facility] [address] [place] [address] Dr. Krystal Glass NEUT # 5.8 103/ul Normal 1.4-6.5 [facility] Comment on above: Performed By: #### U MICRO, ERUR #### [facility] [address] [place] [address] Dr. Krystal Glass Neutrophils/100 WBC (Bld) 69.7 % Normal 43.0-75.0 [facility] Comment on above: Performed By: #### U MICRO, ERUR #### [facility] [address] [place] [address] Dr. Krystal Glass Platelet mean volume (Bld) [Entitic vol] 10.4 fL Normal 9.5-13.5 [facility] Comment on above: Performed By: #### U MICRO, ERUR #### [facility] [address] [place] [address] Dr. Krystal Glass PLT 200 103/ul Normal 150-450 [facility] Comment on above: Performed By: #### U MICRO, ERUR #### [facility] [address] [place], [place] [address] Dr. Krystal Glass RBC 4.10 106/ul Critically low 4.20-5.40 [facility] Comment on above: Performed By: #### U MICRO, ERUR #### [facility] [address] [place], [place] [address] Dr. Krystal Glass WBC 8.3 103/ul Normal 4.0-11.0 [facility] Comment on above: Performed By: #### U MICRO, ERUR #### [facility] [address] [place], [place] [address] HEAD WO CONon [...] VLADIMIR URBANO Date: 2022-08-04 08:44 Normal [facility] CULTURE URINEon 08-04-2022 CULTURE URINE Culture Observations: Susceptibilities not typically performed on Corynebacterium spp. Culture Observations: Probable skin contaminant. PLEASE RESUBMIT CLEAN CATCH MID-STREAM URINE IF CLINICALLY INDICATED. Isolate 1 Corynebacterium aurimucosum >100,000 cfu/mL of Normal [facility] Comment on above: Performed By: #### C BC #### [facility] [address] [place] [address] Dr. Krystal Glass ER URINE PROFILEon 3 Bilirubin Ql (U) Negative Normal NEGATIVE [facility] Comment on above: Performed By: #### July HENLEY UMICRO #### [facility] [address] [place] [address] Dr. Krystal Glass Clarity (U) CLEAR Normal CLEAR [facility] Comment on above: Performed By: #### July HENLEY UMICRO #### [facility] [address] [place] [address] Dr. Krystal Glass Color (U) LT. YELLOW Normal YELLOW [facility] Comment on above: Performed By: #### July HENLEY UMICRO #### [facility] [address] [place] [address] Dr. Krystal ROSARIO A micrscopic examination will be performed if indicated. Normal [facility] Comment on above: Performed By: #### July HENLEY UMICRO #### [facility] [address] [place] [address] Dr. Krystal Glass Glucose Ql (U) Negative Normal NEGATIVE [facility] Comment on above: Performed By: #### July HENLEY UMICRO #### [facility] [address] [place] [address] Dr. Krystal Glass Hemoglobin Ql (U) TRACE-LYSED Abnormal NEGATIVE [facility] Comment on above: Performed By: #### July HENLEY UMICRO #### [facility] [address] [place] [address] Dr. Krystal Glass Ketones Ql (U) Negative Normal NEGATIVE [facility] Comment on above: Performed By: #### July HENLEY UMICRO #### [facility] [address] [place] [address] Dr. Krystal Glass LEUKOCYTES MODERATE Abnormal NEGATIVE [facility] Comment on above: Performed By: #### E RUR, UMICRO #### [facility] [address] [place] [address] Dr. Krystal Glass Nitrite Ql (U) Negative Normal NEGATIVE [facility] Comment on above: Performed By: #### E RUR, UMICRO #### [facility] [address] [place] [address] Dr. Krystal Glass pH (U) 7.0 [pH] Normal 5-9 [facility] Comment on above: Performed By: #### E RUR, UMICRO #### [facility] [address] [place] [address] Dr. Krystal Glass SPEC GRAVITY 1.010 Normal 1.005-<=1.025 [facility] Comment on above: Performed By: #### E KALE, UMICRO #### [facility] [address] [place] [address] Dr. Krystal Glass UA PROTEIN Negative Normal NEGATIVE/ TRACE [facility] Comment on above: Performed By: #### E KALE, UMICRO #### [facility] [address] [place] [address] Dr. Krystal Glass UR MICRO IND INDICATED Normal [facility] Comment on above: Performed By: #### E RUR, UMICRO #### [facility] [address] [place] [address] Dr. Krystal Glass Urobilinogen Qn (U) 0.2 {Daily'U}/dL Normal 0.2 - 1. 0 [facility] Comment on above: Performed By: #### E RUR, UMICRO #### [facility] [address] [place] [address] Dr. Krystal Glass PROF 14(COMP METB)on 023 Albumin [Mass/Vol] 3.2 g/dL Critically low 3.4-5.0 [facility] Comment on above: Performed By: #### U MICRO, ERUR #### [facility] [address] [place] [address] Dr. Krystal Glass Albumin/Globulin [Mass ratio] 0.8 {ratio} Normal [facility] Comment on above: Performed By: #### U MICRO, ERUR #### [facility] [address] [address] [address] Krystal Glass ALP [Catalytic activity/Vol] 73 U/L Normal 46-116 [facility] Comment on above: Performed By: #### U MICRO, ERUR #### [facility] [address] [address] [address] Krystal Glass ALT [Catalytic activity/Vol] 17 U/L Normal 14-59 [facility] Comment on above: Performed By: #### U MICRO, ERUR #### [facility] [address] [address] [address] Krystal Glass Anion gap [Moles/Vol] 10.0 mmol/L Normal [facility] Comment on above: Performed By: #### U MICRO, ERUR #### [facility] [address] [place] [address] Dr. Krystal Glass AST [Catalytic activity/Vol] 18 U/L Normal 15-37 [facility] Comment on above: Performed By: #### U MICRO, ERUR #### [facility] [address] [address] [address] Krystal Glass Bilirubin [Mass/Vol] 0.6 mg/dL Normal 0.2-1.0 [facility] Comment on above: Performed By: #### U MICRO, ERUR #### [facility] [address] [address] [address] Krystal Glass Calcium [Mass/Vol] 9.3 mg/dL Normal 8.5-10.1 [facility] Comment on above: Performed By: #### U MICRO, ERUR #### [facility] [address] [address] [address] Krystal Glass Chloride [Moles/Vol] 101 mmol/L Normal 98-107 [facility] Comment on above: Performed By: #### U MICRO, ERUR #### [facility] [address] [address] [address] Krystal Glass CO2 [Moles/Vol] 30.6 mmol/L Normal 21.0-32.0 [facility] Comment on above: Performed By: #### U MICRO, ERUR #### [facility] [address] [place] [address] Dr. Krystal Glass Creatinine [Mass/Vol] 0.83 mg/dL Normal 0.55-1.02 [facility] Comment on above: Performed By: #### U MICRO, ERUR #### [facility] [address] [address] [address] Krystal Glass EGFR-AF SOU[place] >60 Normal >=60 [facility] Comment on above: Performed By: #### U MICRO, ERUR #### [facility] [address] [place] [address] Dr. Krystal Glass EGFR-NON AF [place] >60 Normal >=60 [facility] Comment on above: Performed By: #### U MICRO, ERUR #### [facility] [address] [address] [address] Krystal Glass Globulin (S) [Mass/Vol] 3.8 g/dL Normal [facility] Comment on above: Performed By: #### U MICRO, ERUR #### [facility] [address] [address] [address] Krystal Glass Glucose [Mass/Vol] 192 mg/dL Critically high 74-106 [facility] Comment on above: Performed By: #### U MICRO, ERUR #### [facility] [address] [address] [address] Krystal Glass Potassium [Moles/Vol] 3.6 mmol/L Normal 3.5-5.1 [facility] Comment on above: Performed By: #### U MICRO, ERUR #### [facility] [address] [address] [address] Krystal Glass Protein [Mass/Vol] 7.0 g/dL Normal 6.4-8.2 [facility] Comment on above: Performed By: #### U MICRO, ERUR #### [facility] [address] [address] [address] Krystal Glass Sodium [Moles/Vol] 138 mmol/L Normal 136-145 [facility] Comment on above: Performed By: #### U MICRO, ERUR #### [facility] [address] [place] [address] Dr. Krystal Glass Urea nitrogen [Mass/Vol] 14.0 mg/dL Normal 7.0-18.0 [facility] Comment on above: Performed By: #### U MICRO, ERUR #### [facility] [address] [place] [address] Dr. Krystal Glass Urea nitrogen/Creatinine [Mass ratio] 16.9 mg/mg Normal [facility] Comment on above: Performed By: #### U MICRO, ERUR #### [facility] [address] [place] [address] Dr. Krystal Glass URINE MICROSCOPIC ONLYon BACTERIA TRACE Abnormal NONE SEEN [facility] Comment on above: Performed By: #### E RUR, UMICRO #### [facility] [address] [place] [address] Dr. Krystal Glass Bacteria identified Cx Nom (U) INDICATED Normal [facility] Comment on above: Performed By: #### E RUR, UMICRO #### [facility] [address] [place] [address] Dr. Krystal Glass CAST NONE SEEN Normal NONE SEEN [facility] Comment on above: Performed By: #### E RUR, UMICRO #### [facility] [address] [place] [address] Dr. Krystal Glass Crystals LM Nom (Urine sed) NONE SEEN Normal NONE SEEN [facility] Comment on above: Performed By: #### E RUR, UMICRO #### [facility] [address] [place] [address] Dr. Krystal Glass Epithelial cells LM Ql (Urine sed) NONE SEEN Normal NONE SEEN /RARE [facility] Comment on above: Performed By: #### E RUR, UMICRO #### [facility] [address] [place] [address] Dr. Krystal Glass MUCOUS NONE SEEN Normal NONE SEEN [facility] Comment on above: Performed By: #### E RUR, UMICRO #### [facility] [address] [place] [address] Dr. Krystal Glass RBC 0-2 Normal 0-2 [facility] Comment on above: Performed By: #### E RICHARD HENLEY #### [facility] [address] [place] [address] Dr. Krystal Glass WBC 2-5 Abnormal NONE SEEN [facility] Comment on above: Performed By: #### RICHARD VIERA #### [facility] [address] [place] [address] Dr. Krystal Glass CBC AUTO DIFFon 06-07-2022 BASO # 0.0 103/ul Normal 0.0-0.1 [facility] Comment on above: Performed By: #### C BC #### [facility] [address] [place] [address] Dr. Krystal Glass Basophils/100 WBC (Bld) 0.4 % Normal 0.2-2.0 [facility] Comment on above: Performed By: #### C BC #### [facility] [address] [place] [address] Dr. Krystal Glass EO # 0.1 103/ul Normal 0.0-0.7 [facility] Comment on above: Performed By: #### C BC #### [facility] [address] [place] [address] Dr. Krystal Glass Eosinophils/100 WBC (Bld) 0.8 % Critically low 0.9-7.0 [facility] Comment on above: Performed By: #### C BC #### [facility] [address] [place] [address] Dr. Krystal Glass Erythrocyte distribution width (RBC) [Ratio] 13.0 % Normal 11.0-15.0 [facility] Comment on above: Performed By: #### C BC #### [facility] [address] [place] [address] Dr. Krystal Glass Hematocrit (Bld) [Volume fraction] 35.4 % Critically low 36.0-48.0 [facility] Comment on above: Performed By: #### C BC #### [facility] [address] [place] [address] Dr. Krystal Glass Hemoglobin (Bld) [Mass/Vol] 11.7 g/dL Critically low 12.0-16.0 [facility] Comment on above: Performed By: #### C BC #### [facility] [address] [place] [address] Dr. Krystal Glass IG # 0.02 10e3/ul Normal 0.00-0.03 [facility] Comment on above: Performed By: #### C BC #### [facility] [address] [place] [address] Dr. Krystal Glass IG % 0.2 % Normal 0.0-0.5 [facility] Comment on above: Performed By: #### C BC #### [facility] [address] [place] [address] Dr. Krystal Glass LYMPH # 1.2 103/ul Normal 1.2-3.8 [facility] Comment on above: Performed By: #### C BC #### [facility] [address] [place] [address] Dr. Krystal Glass Lymphocytes/100 WBC (Bld) 13.5 % Critically low 20.5-60.0 [facility] Comment on above: Performed By: #### C BC #### [facility] [address] [place] [address] Dr. Krystal Glass MANUAL DIFF REQ NO Normal [facility] Comment on above: Performed By: #### C BC #### [facility] [address] [place] [address] Dr. Krystal Glass MCH (RBC) [Entitic mass] 29.5 pg Normal 26.7-34.0 [facility] Comment on above: Performed By: #### C BC #### [facility] [address] [place] [address] Dr. Krystal Glass MCHC (RBC) [Mass/Vol] 33.1 g/dL Normal 29.9-35.2 [facility] Comment on above: Performed By: #### C BC #### [facility] [address] [address] [address] Krystal Glass MCV (RBC) [Entitic vol] 89.2 fL Normal 81.0-99.0 [facility] Comment on above: Performed By: #### C BC #### [facility] [address] [address] [address] Krystal Glass MONO # 0.6 103/ul Normal 0.3-0.8 [facility] Comment on above: Performed By: #### C BC #### [facility] [address] [address] [address] Krystal Glass Monocytes/100 WBC (Bld) 6.9 % Normal 1.7-12.0 [facility] Comment on above: Performed By: #### C BC #### [facility] [address] [place] [address] Dr. Krystal Glass NEUT # 7.0 103/ul Critically high 1.4-6.5 [facility] Comment on above: Performed By: #### C BC #### [facility] [address] [place] [address] Dr. Krystal Glass Neutrophils/100 WBC (Bld) 78.2 % Critically high 43.0-75.0 [facility] Comment on above: Performed By: #### C BC #### [facility] [address] [place] [address] Dr. Krystal Glass Platelet mean volume (Bld) [Entitic vol] 10.1 fL Normal 9.5-13.5 [facility] Comment on above: Performed By: #### C BC #### [facility] [address] [place] [address] Dr. Krystal Glass PLT 249 103/ul Normal 150-450 [facility] Comment on above: Performed By: #### C BC #### [facility] [address] [place] [address] Dr. Krystal Glass RBC 3.97 106/ul Critically low 4.20-5.40 [facility] Comment on above: Performed By: #### C BC #### [facility] [address] [place] [address] Dr. Krystal Glass WBC 9.0 103/ul Normal 4.0-11.0 [facility] Comment on above: Performed By: #### C BC #### [facility] [address] [place] [address] HEAD WO CONon [...] DAVIDE SALAS Date: 2022-06-07 11:56 Normal [facility] CULTURE URINEon 06-07-2022 CULTURE URINE Culture Observations: NO GROWTH. Normal [facility] Comment on above: Performed By: #### C BC #### [facility] [address] [place] [address] Dr. Krystal Glass ER URINE PROFILEon 2 Bilirubin Ql (U) Negative Normal NEGATIVE [facility] Comment on above: Performed By: #### C BC #### [facility] [address] [place] [address] Dr. Krystal Glass Clarity (U) CLEAR Normal CLEAR [facility] Comment on above: Performed By: #### C BC #### [facility] [address] [place] [address] Dr. Krystal Glass Color (U) LT. YELLOW Normal YELLOW [facility] Comment on above: Performed By: #### C BC #### [facility] [address] [place] [address] Dr. Krystal ROSARIO A micrscopic examination will be performed if indicated. Normal [facility] Comment on above: Performed By: #### C BC #### [facility] [address] [place] [address] Dr. Krystal Glass Glucose Ql (U) Negative Normal NEGATIVE [facility] Comment on above: Performed By: #### C BC #### [facility] [address] [place] [address] Dr. Krystal Glass Hemoglobin Ql (U) Negative Normal NEGATIVE [facility] Comment on above: Performed By: #### C BC #### [facility] [address] [place] [address] Dr. Krystal Glass Ketones Ql (U) Negative Normal NEGATIVE [facility] Comment on above: Performed By: #### C BC #### [facility] [address] [place] [address] Dr. Krystal Glass LEUKOCYTES Negative Normal NEGATIVE [facility] Comment on above: Performed By: #### C BC #### [facility] [address] [place] [address] Dr. Krystal Glass Nitrite Ql (U) Negative Normal NEGATIVE [facility] Comment on above: Performed By: #### C BC #### [facility] [address] [place] [address] Dr. Krystal Glass pH (U) 7.0 [pH] Normal 5-9 [facility] Comment on above: Performed By: #### C BC #### [facility] [address] [place] [address] Dr. Krystal Glass SPEC GRAVITY 1.010 Normal 1.005-<=1.025 [facility] Comment on above: Performed By: #### C BC #### [facility] [address] [place] [address] Dr. Krystal Glass UA PROTEIN Negative Normal NEGATIVE/ TRACE [facility] Comment on above: Performed By: #### C BC #### [facility] [address] [place] [address] Dr. Krystal Glass UR MICRO IND NOT INDICATED Normal [facility] Comment on above: Performed By: #### C BC #### [facility] [address] [place] [address] Dr. Krystla Glass Urobilinogen Qn (U) 0.2 {Daily'U}/dL Normal 0.2 - 1. 0 [facility] Comment on above: Performed By: #### C BC #### [facility] [address] [place] [address] Dr. Krystal Glass LIPASEon 06-07-2022 Lipase [Catalytic activity/Vol] 58.0 U/L Critically low 73.0-393.0 [facility] Comment on above: Performed By: #### U MICRO, ERUR #### [facility] [address] [place] [address] Dr. Krystal Glass PROF 14(COMP METB)on 022 Albumin [Mass/Vol] 3.1 g/dL Critically low 3.4-5.0 [facility] Comment on above: Performed By: #### U MICRO, ERUR #### [facility] [address] [place] [address] Dr. Krystal Glass Albumin/Globulin [Mass ratio] 0.8 {ratio} Normal [facility] Comment on above: Performed By: #### U MICRO, ERUR #### [facility] [address] [place] [address] Dr. Krystal Glass ALP [Catalytic activity/Vol] 75 U/L Normal 46-116 [facility] Comment on above: Performed By: #### U MICRO, ERUR #### [facility] [address] [place] [address] Dr. Krystal Glass ALT [Catalytic activity/Vol] 19 U/L Normal 14-59 [facility] Comment on above: Performed By: #### U MICRO, ERUR #### [facility] [address] [place] [address] Dr. Krystal Glass Anion gap [Moles/Vol] 9.7 mmol/L Normal [facility] Comment on above: Performed By: #### U MICRO, ERUR #### [facility] [address] [place] [address] Dr. Krystal Glass AST [Catalytic activity/Vol] 18 U/L Normal 15-37 [facility] Comment on above: Performed By: #### U MICRO, ERUR #### [facility] [address] [address] [address] Krystal Glass Bilirubin [Mass/Vol] 0.5 mg/dL Normal 0.2-1.0 [facility] Comment on above: Performed By: #### U MICRO, ERUR #### [facility] [address] [address] [address] Krystal Glass Calcium [Mass/Vol] 9.5 mg/dL Normal 8.5-10.1 [facility] Comment on above: Performed By: #### U MICRO, ERUR #### [facility] [address] [place] [address] Dr. Krystal Glass Chloride [Moles/Vol] 101 mmol/L Normal 98-107 [facility] Comment on above: Performed By: #### U MICRO, ERUR #### [facility] [address] [place] [address] Dr. Krystal Glass CO2 [Moles/Vol] 27.2 mmol/L Normal 21.0-32.0 [facility] Comment on above: Performed By: #### U MICRO, ERUR #### [facility] [address] [place] [address] Dr. Krystal Glass Creatinine [Mass/Vol] 1.01 mg/dL Normal 0.55-1.02 [facility] Comment on above: Performed By: #### U MICRO, ERUR #### [facility] [address] [place] [address] Dr. Krystal Glass EGFR-AF SOUTH AFRICAN >60 Normal >=60 [facility] Comment on above: Performed By: #### U MICRO, ERUR #### [facility] [address] [address] [address] Krystal Glass EGFR-NON AF SOUTH AFRICAN 52 mL/min/1.73m2 Critically low >=60 [facility] Comment on above: Performed By: #### U MICRO, ERUR #### [facility] [address] [address] [address] Krystal Glass Globulin (S) [Mass/Vol] 4.1 g/dL Normal [facility] Comment on above: Performed By: #### U MICRO, ERUR #### [facility] [address] [place] [address] Dr. Krystal Glass Glucose [Mass/Vol] 180 mg/dL Critically high 74-106 [facility] Comment on above: Performed By: #### U MICRO, ERUR #### [facility] [address] [place] [address] Dr. Krystal Glass Potassium [Moles/Vol] 3.9 mmol/L Normal 3.5-5.1 [facility] Comment on above: Performed By: #### U MICRO, ERUR #### [facility] [address] [place] [address] Dr. Krystal Glass Protein [Mass/Vol] 7.2 g/dL Normal 6.4-8.2 [facility] Comment on above: Performed By: #### U MICRO, ERUR #### [facility] [address] [place] [address] Dr. Krystal Glass Sodium [Moles/Vol] 134 mmol/L Critically low 136-145 [facility] Comment on above: Performed By: #### U MICRO, ERUR #### [facility] [address] [place] [address] Dr. Krystal Glass Urea nitrogen [Mass/Vol] 18.0 mg/dL Normal 7.0-18.0 [facility] Comment on above: Performed By: #### U MICRO, ERUR #### [facility] [address] [place] [address] Dr. Krystal Glass Urea nitrogen/Creatinine [Mass ratio] 17.8 mg/mg Normal [facility] Comment on above: Performed By: #### U MICRO, ERUR #### [facility] [address] [place] [address] Dr. Krystal Glass TROPONIN, HIGH SENSITIVITYon 06-07-2022 HSTROP 17.5 pg/mL Normal 4.0-51.3 [facility] Comment on above: Result Comment: CUT- OFF POINTS HAVE BEEN ESTABLISHED BASED ON THE FOURTH UNIVERSAL DEFINITIONS OF MYOCARDIAL INFARCTION. THE UPPER REFERENCE LIMIT (URL) OF TROPONIN, DEFINED THE 99TH PERCENTILE OF cTnI DISTRIBUTION IN A REFERENCE POPULATION, HAS BEEN CONFIRMED THE DECISION THRESHOLD FOR CT DIAGNOSIS. Performed By: #### U MICRO, ERUR #### [facility] [address] [place], [place] [address] Dr. Krystal Glass XR CHEST 1 Von [...] DAVIDE SALAS Date: 2022-06-07 11:49 Normal [facility] Coding Summary.on 04-30-2022 Coding Summary. CD:[id number] Gh0bWw+PGhlYWQ+PE1FV OBlX69fzZWlbQ0RC3zZS N8QPOUPPWPCGZ8ZNT5vf TY9MEbdW7VdxlDt ZnmyqIArQT95OLg5PRY0 gKglARavkA3lySJhN2v0 UqYwPB05uF59KYgtQYHd FgV4ZeLxaxrimAOg P8thKgJadXXqEnl+PHRh YmxlIHdpZHRoPScxMDAl JuKddXzsYB7yXq5mKZFi LWNvbGxhcHNlOiBj m4bkHJDzNXsxMA3gyEpr C2TfjJM8OLSsl4i4Sx18 dHI+AVOzHVX3gUwqYAsj f413SnAyn0rpKZB9 mDGoDMwwOND5T59ku5B9 JRDnFNXgXDZ2mYU4iR8l wNtvkloaI0TuiSTmBoE3 MOO6tLYbqW6mtDst bxhwyS2jMaz+Q55ONV3X NEKNRN8QApx3K5GeWcvo dHI+AG61IZOcSR96uUFa wCBwi0ukfIg5HvDn JQDdXNL9dQjkCRrsz1Po PMFgR88haJXom4J4CJJd aGoxkFHvHqDkaHC1uV4k SAeooxnlq3kgbvtp Lceng5zjzy04yA85I26u KIkxMRPuIFZ2HNLwGMMy wLknna6phX7jVb9+IDxj q3gnw0hjnKd4XvFh NZRjrhNktBdwUCO4i5Aw Vp99B1UwiOgdw8WuOpn7 gb24gZGre3A4vCM2URfx OZXmcQ1hLBnsXlC3 QMAdWsQngO90uRWuFVzv Eg8keSfdmTdmGB5wBXRm atsrJFWdcP4bVLUhnIYz nNlvNZ6tXCUtrluj f397IpSpZZL4TZUucSTq N1OaeP2kTfVpFEKsFDOs J6YfiECnAZeuT580MYbd HiA3ZPUmuzBfF8Pu CZGfiVliFmV5d7K0Ki3A g2ChlzqbVKP8MEmgFVX9 YzU7XfTpIvY6Y8UqKvj5 NBIhvDsnTV9xQ3Dy ASSgysfcwetygOQ9DASx NZNjmU68nHKaIAmoXe2q g4O4z735QGTuJCDnlT12 Wd0biMjfHIJzkUAR kA7jlaajo0hgiuqiHzUm EDOuLSr0GLc3HYOfzJpf OiBzJOE0QcK1MEA0kIEr aN5ftMqyfajsbV6u Oyc+B14rbA6rJOS4AOG7 amzvPBSabsSiQZ49BC56 X0UfKklbdRXbaOF+PGRp cxQyjVfuAJ4wDaPu x4naz7TvIZvaX7YwBBEg DAcgWrz4SUDdSKO2uFT8 cE4qSRWzJVklc4Y5aVM5 C0QboaQats7dr2gn GEApJRtmH29sqFCsa7O2 FNJrfZK1AYAdmBidXrVx hA49Dld+LVPutAyqs7Kb Cywmg0yec7yihZj9 IjMwJSIgdmFsaWduPSJ0 g8MsYs84T20hSElyZFWz WEJnLMKvXZNxdJxbmc4g nY1eZe1+PGNvbCB3 rJD6tB5sMJIzTcH2CVsy V912UjPmcMVuPbckp3ap e7zphZx2EfXuJMNdlmNy nYxzISD3r7QaYh66 M02bBSiiRCYfNMSfZXZz UQPruEegud2peT1jZl2+ MY8lh3bejq96hC06kPP+ XSMwTPK0qSgvPMkv PRPpxX8tSNhuTyA4OYLf UzKetR77wVOuCRguKu3j wFygfQbiCU8dLEYlcvte s196LuQuz6eePGUz ySUmYJbcFRC4Q40ms1J7 QJEdXFUaIYV0wNQ8pK1f bGlnbjogbGVmdDsgdmVy nRltSGyxYHriS759 IHRvcDsnPlBhdGllbnQg SfHcLFd2T3YaUnu0TYOx gMowKQ9daKYvLVbyIw3x tEmdgAmdAV9sDSTd xmlbr604ZaPhn3pmGEAy zMGsYZhqVDT9T53ry4I8 KRLzATOeYCX3yKW5bM3e bGlnbjogbGVmdDsg llSbjMryDWthBYuiE734 IHRvcDsnPkJpcnRoIERh eCC0GI21SG89rQRhf0P2 oVD2Q8CaZCQlgjqh kujatID3BPZiAXAroK44 Kd0gmSvgUo9vRLMpRSQ5 ZFNlzBTmK9EeeN0qZrPl HWCeLCBlW7ZfhJXy YDytD336MZouKyV3TDJo toOnA5ZmEUOmwMytWuA5 p1G0Mh2WJ9W0GL06IA41 aPYmk7U3uQP1K2Vi TEWlzazvjuwlfUG7KJRq NSRipZ01Gz0lvAsdQh2d HSXrWCQ8KBNvcXEfH3Ha aO0eJgVeQKOkPKHh R2VtrFDfXZsdN741WQrk FmS4WUJhjiZhG9CfAJPr sRbyPgA5j3P3Px9XQMo3 HN38PA21cKGis5R0 gZV1G5UvSQDlhpxsdvng fDV4GKPqFTWagW09Vd3a wEugZc2vMJCfYRX9UXGl rITyO5IpbY4xArNu LCBuOISjA7JaxHMbKUvq H832WSfqOrR4CITqihFb E9RcIRBquBdfRrY9p0Q2 Ui6CWILrLX69FQZ0 dLC5YE96ZU75Y5PkQxgg dGFibGU+PHRhYmxlIHdp ZHRoPScxMDAlJyBzdHls XC8fJv8uRZHjMQTd yEnljLCsCpGrv0wpDQXk HCtbBW5ivIqnM6MzpML9 YJIng2v9Kc16B53jV0Gs dXA+FNLosNZ1dQF4 lX7yRtOjOmX3DNlnE613 FtYdlHOhDzruc7ytj3sa tRn3LvI7ADCwupIkrJgv MVN0f0KaHp99V08l IHdpZHRoPSIxNSUiIHZh kWgxvq2evW1jIm8+PGNv aSK7gAO9eF6kYbKmPrE9 VKwjS106GePsgGHb Onrdj8tlz1kqmRq5GmJq MYSxijUkoYzpCOF9g1Hf Vq20Q4IlnSnbo2JuJbt1 ct17cDHnp6X7qQT2 S2MtUYKbueeybGGvhSbt UN6lTXAnkzdzTTIfzN7c ICNzM3r3OrKoHkX4EKud V2KwsfV5GOVnzWWx RTvnJZY1U72wa6M6HMRc ABQzSVE6pFP1aT6fcJsu bjogbGVmdDsgdmVydGlj VFgkMIndN374GMLz aFqjIJChnA8zTHPweYYw rKdrAE6xMXOasyseZeGO JODiCZNQMZKGC3mABBJ0 Z3TdHkw8AVEpsPxi YE6xrBTsOEsqPz1ukAlk uVhsII8tOWQhwsfyDJJc lM9dREBlaJUohDrnSA4g JQKpmkrxw076ByWj XYE3KAZffDQcR2MhjJ1m SgXlWRPmIATvM6NpiXCc LAdrE184LHydUoF7SPTw vqIgW6OkZZUpkAse LuU4a9X3Ic4zEc5oVT6s UMG3IK26HZ76oAAye0Y1 eFW6X0ErWPOvaveqhjao vSH0GHJvBCBkbO44 qGFtEEleDj5jx1C3w803 VFBtXKPkuJ08Tz3bkPxu OJJwmAWWjU4inomui1nl cjogIzAwMDAwMDt0 KBz4BJXgzEmwMjBvPAJ6 GcU1GYV8pZCcaL3dhIrf mlyzkP0iJph+ODcgWWVh hiP0T7RvGgv1WFKg mDnbYJ7fjIUcROleJh8j bMqukOfmCD2rMBHmlpoq BAGihI0bIGJiuHJhlAvc CX6bIEMtpoynm029 ZzOoVPS1KFUufGHhG6Fq yM0iEhOrVXIcUOYeQ6Sr yGThERfoD991PAqlGeV6 VRHkpbTwV4LbOOCp cEydDjU2x9N0Xq1ZGJ4f oSK2X4EbJfs6SYCpqTpa KB8vaPFxJNtmIy0uwAdk hYpdSN9oZBUpifnk MDStxA7aEOTgmQKelIkn TM2lPKQpnakog396XxYi SEP4ONLrxNDsK3QzxA5l KoWqCKQtCRGeK7So nOAdSLluO135AAzbVzV0 TIMmfgDxA2ShPQYdnOlw QrY1a7Y3Iu2SaRGfNQAt TV34UO85LK89U6Sn PjwvdGFibGU+PHRhYmxl IHdpZHRoPScxMDAlJyBz pVyeUE6jEr5iPUWdWCLz sBkolLPrSdWzm9vb SSQkODihKF5giQcyV5Zd pMD7FVTwv8l3Jg91A15f X2RpuAK+CIZhkWH0aKA2 jQ2sElGzWhT5ZXkp M564RzTmuYHvUyvep2yh a4ypvVb1BrYyPYEkawWj hNawENP7n3FdSs43T90f IHdpZHRoPSIyMCUi XKExpPdhiq9diT7dTv0+ JFLxcJD8tDS3vL1nZuEm VkB2TMldF536TkUztQBd OrwaH29fJ7XwaJA+ NIKbVwg5XSOlaSmpGS6g pDVpAWmrOc1uMVP1UoZc KdLdOBhnN3YbQGWnaljw lusgrJI9ADYcVKHa fX10Lw9sqZbxTs8pRZTf XRK9QTQteCGoY8IxmQ0h PgQiNETmBYLbZ9TdlAGy GMjmT723WRlmUdM6 FSSkuzZbW8OhOYBmqHfi MbS2y1A5Vh5ZcDwlvLRn AT9bNbSlTUw1Y3CrPvm1 ZBFfpXuqOL9haBAp NJcaVa2yvPuoaJasVB4c MREbjmkmk721VjEzi2yl JVXhaGHlJAqjYZM3T88x i1U6AZGlAWRcASC3 eAM1lY0slEgorbubnZVq dDsgdmVydGljYWwtYWxp N032WGUxxGonJlRWKit7 O6HbZez8DPVzlJqe TJ3zaNMlHTyuUq0qoQsq dKfxIK5fCTAroahis015 PhLgl2cdQYHgeANjVKaw MON0N37wc3K6DJZo SWSiHMH9sUN3sP1kpXto bjogbGVmdDsgdmVydGlj RRwpIRzfI822JISbbGgn Iv8FRey4A2SfJfa1 NOJhsYrhGH0piOGtZZnt St2auAsvnOygCF5dXQZw sfevj314UoGue2qaKYGg kBCpQNieGTN2R04p l8E8NINlKNAoZFK3gMC1 eX4efYrwjqwyuDHetNwn ggUvyGmdNHtpJCthK879 IHRvcDsnPlBheWVy OjwvdGQ+GY67ff90N1Bu MlavTtq6PHTkLAH2lZR5 dL4uGFTuIXbno5J4wQZ9 Y7MpagOnpd7lm8sv YXBz (more content not included)... Normal [facility] Heart and Vascular Office/Cl inic Noteon 04-19-2022 Heart and Vascular Office/Clinic Note Chief Complaint 6 week follow up History of Present Illness Toribio Betts is a 86-year-old female patient of Dr. Ramos with past medical history for CAD, hypertension, hyperlipidemia, remote TIA. She was last seen by Dr. Ramos office, she was having episodes of hypotension upon standing reported by staff at the [facility]. Her furosemide was discontinued and she is [...] Angella MAYERS, Axel Bravo Within 6 months [facility] [place] [address]- Additional Instructions: Problem List/Past Medical History Ongoing [...] HCP SARS-CoV-2 (COVID-19) mRNA-1273 vaccine 08/14/2020 Recorded [facility] influenza virus vaccine, inactivated 05/19/2020 Given influenza virus vaccine, inactivated 05/26/2019 Given influenza virus vaccine, inactivated 05/06/2018 Recorded pneumococcal (more content not included)... Normal [facility] Comment on above: Result Comment: Elec tronically Signed By: Angelina SMILEY CNP\george\Date and Time Signed: 04/19/22 02:14 EDT Consent for Treatmenton 04-04 Consent for Treatment [id number] #1.00CD:127 Normal [facility] Progress Note-Nurseon 2021 Progress Note-Nurse [id number] 9#1.00CD:127 [facility] Progress Note-Nurse [id number] 4#1.00CD:127 Normal [facility] Insurance Correspondence Off iceon 04-11-2022 Insurance Correspondence Office [id number] #1.00CD:127 [facility] CULTURE URINEon 03-18-2022 CULTURE URINE Isolate 1 [...] F Trimethoprim/Sulfame thoxazole <=20 S F Normal [facility] Comment on above: Performed By: #### C BC #### [facility] [address] [address] [address] Krystal Glass CARDIAC TERRY ADMITon 022 CK [Catalytic activity/Vol] 39 U/L Normal 26-192 [facility] Comment on above: Performed By: #### C MADM, CMP #### [facility] [address] [place] [address] Dr. Krystal Glass CK.MB [Mass/Vol] 0.77 ng/mL Normal <=3.60 [facility] Comment on above: Performed By: #### C DAMONM, CMP #### [facility] [address] [place] [address] Dr. Krystal Glass HSTROP 14.6 pg/mL Normal 4.0-51.3 [facility] Comment on above: Result Comment: CUT- OFF POINTS HAVE BEEN ESTABLISHED BASED ON THE FOURTH UNIVERSAL DEFINITIONS OF MYOCARDIAL INFARCTION. THE UPPER REFERENCE LIMIT (URL) OF TROPONIN, DEFINED THE 99TH PERCENTILE OF cTnI DISTRIBUTION IN A REFERENCE POPULATION, HAS BEEN CONFIRMED THE DECISION THRESHOLD FOR CT DIAGNOSIS. Performed By: #### C BETH, CMP #### [facility] [address] [place] [address] Dr. Krystal Glass JOSE 36 ng/mL Normal 9-82 [facility] Comment on above: Performed By: #### C BETH, CMP #### [facility] [address] [place] [address] Dr. Krystal Glass CBC AUTO DIFFon 03-16-2022 BASO # 0.0 103/ul Normal 0.0-0.1 [facility] Comment on above: Performed By: #### C BC #### [facility] [address] [place] [address] Dr. Krystal Glass Basophils/100 WBC (Bld) 0.4 % Normal 0.2-2.0 [facility] Comment on above: Performed By: #### C BC #### [facility] [address] [place] [address] Dr. Krystal Glass EO # 0.2 103/ul Normal 0.0-0.7 [facility] Comment on above: Performed By: #### C BC #### [facility] [address] [place] [address] Dr. Krystal Glass Eosinophils/100 WBC (Bld) 3.3 % Normal 0.9-7.0 [facility] Comment on above: Performed By: #### C BC #### [facility] [address] [place] [address] Dr. Krystal Glass Erythrocyte distribution width (RBC) [Ratio] 13.5 % Normal 11.0-15.0 [facility] Comment on above: Performed By: #### C BC #### [facility] [address] [place] [address] Dr. Krystal Glass Hematocrit (Bld) [Volume fraction] 35.3 % Critically low 36.0-48.0 [facility] Comment on above: Performed By: #### C BC #### [facility] [address] [place] [address] Dr. Krystal Glass Hemoglobin (Bld) [Mass/Vol] 11.5 g/dL Critically low 12.0-16.0 [facility] Comment on above: Performed By: #### C BC #### [facility] [address] [place] [address] Dr. Krystal Glass IG # 0.01 10e3/ul Normal 0.00-0.03 [facility] Comment on above: Performed By: #### C BC #### [facility] [address] [place] [address] Dr. Krystal Glass IG % 0.1 % Normal 0.0-0.5 [facility] Comment on above: Performed By: #### C BC #### [facility] [address] [place] [address] Dr. Krystal Glass LYMPH # 1.4 103/ul Normal 1.2-3.8 [facility] Comment on above: Performed By: #### C BC #### [facility] [address] [place] [address] Dr. Krystal Glass Lymphocytes/100 WBC (Bld) 19.7 % Critically low 20.5-60.0 [facility] Comment on above: Performed By: #### C BC #### [facility] [address] [place] [address] Dr. Krystal Glass MANUAL DIFF REQ NO Normal [facility] Comment on above: Performed By: #### C BC #### [facility] [address] [place] [address] Dr. Krystal Glass MCH (RBC) [Entitic mass] 30.3 pg Normal 26.7-34.0 [facility] Comment on above: Performed By: #### C BC #### [facility] [address] [place] [address] Dr. Krystal Glass MCHC (RBC) [Mass/Vol] 32.6 g/dL Normal 29.9-35.2 [facility] Comment on above: Performed By: #### C BC #### [facility] [address] [place] [address] Dr. Krystal Glass MCV (RBC) [Entitic vol] 92.9 fL Normal 81.0-99.0 [facility] Comment on above: Performed By: #### C BC #### [facility] [address] [place] [address] Dr. Krystal Glass MONO # 0.6 103/ul Normal 0.3-0.8 [facility] Comment on above: Performed By: #### C BC #### [facility] [address] [place] [address] Dr. Krystal Glass Monocytes/100 WBC (Bld) 8.0 % Normal 1.7-12.0 [facility] Comment on above: Performed By: #### C BC #### [facility] [address] [place] [address] Dr. Krystal Glass NEUT # 4.7 103/ul Normal 1.4-6.5 [facility] Comment on above: Performed By: #### C BC #### [facility] [address] [place] [address] Dr. Krystal Glass Neutrophils/100 WBC (Bld) 68.5 % Normal 43.0-75.0 [facility] Comment on above: Performed By: #### C BC #### [facility] [address] [place] [address] Dr. Krystal Glass Platelet mean volume (Bld) [Entitic vol] 10.0 fL Normal 9.5-13.5 [facility] Comment on above: Performed By: #### C BC #### [facility] [address] [place] [address] Dr. Krystal Glass PLT 254 103/ul Normal 150-450 [facility] Comment on above: Performed By: #### C BC #### [facility] [address] [place] [address] Dr. Krystal Glass RBC 3.80 106/ul Critically low 4.20-5.40 [facility] Comment on above: Performed By: #### C BC #### [facility] [address] [place] [address] Dr. Krystal Glass WBC 6.9 103/ul Normal 4.0-11.0 [facility] Comment on above: Performed By: #### C BC #### [facility] [address] [place] [address] Dr. Krystal Glass Covid-19 PCR ([facility])on 03-04 SARS-CoV-2 (COVID-19) RNA KIMBERLY+probe Ql (Unsp spec) Not detected Normal NOT DETECTED [facility] Comment on above: Result Comment: When diagnostic [...] for this test is supported by the [place] of Health and Human Service's declaration that [...] used). Performed By: #### C BC #### [facility] [address] [place] [address] Dr. Krystal Glass ER URINE PROFILEon 2 Bilirubin Ql (U) Negative Normal NEGATIVE [facility] Comment on above: Performed By: #### E RICHARD HENLEY #### [facility] [address] [place] [address] Dr. Krystal Glass Clarity (U) TURBID Abnormal CLEAR [facility] Comment on above: Performed By: #### JACKIE VIERAICRO #### [facility] [address] [place] [address] Dr. Krystal Glass Color (U) YELLOW Normal YELLOW [facility] Comment on above: Performed By: #### ENIO IVERARO #### [facility] [address] [place] [address] Dr. Krystal ROSARIO A micrscopic examination will be performed if indicated. Normal [facility] Comment on above: Performed By: #### ENIO VIERARO #### [facility] [address] [place] [address] Dr. Krystal Glass Glucose Ql (U) Negative Normal NEGATIVE [facility] Comment on above: Performed By: #### ENIO VIERARO #### [facility] [address] [place] [address] Dr. Krystal Glass Hemoglobin Ql (U) SMALL Abnormal NEGATIVE The [facility] Comment on above: Performed By: #### ENIO VIERARO #### [facility] [address] [place] [address] Dr. Krystal Glass Ketones Ql (U) Negative Normal NEGATIVE [facility] Comment on above: Performed By: #### ENIO VIERARO #### [facility] [address] [place] [address] Dr. Krystal Glass LEUKOCYTES MODERATE Abnormal NEGATIVE [facility] Comment on above: Performed By: #### ENIO VIERARO #### [facility] [address] [place] [address] Dr. Krystal Glass Nitrite Ql (U) Positive Abnormal NEGATIVE [facility] Comment on above: Performed By: #### JACKIE VIERAICRO #### [facility] [address] [place] [address] Dr. Krystal Glass pH (U) 7.0 [pH] Normal 5-9 [facility] Comment on above: Performed By: #### JACKIE VIERAICRO #### [facility] [address] [place] [address] Dr. Krystal Glass Protein (U) [Mass/Vol] 30 mg/dL Abnormal NEGATIVE/ TRA CE [facility] Comment on above: Performed By: #### July HENLEY UMICRO #### [facility] [address] [place] [address] Dr. Krystal Glass SPEC GRAVITY 1.010 Normal 1.005-<=1.025 [facility] Comment on above: Performed By: #### JACKIE VIERAICRO #### [facility] [address] [place] [address] Dr. Krystal Glass UR MICRO IND INDICATED Normal [facility] Comment on above: Performed By: #### ENIO VIERARO #### [facility] [address] [place] [address] Dr. Krystal Glass Urobilinogen Qn (U) 0.2 {Daily'U}/dL Normal 0.2 - 1. 0 [facility] Comment on above: Performed By: #### ENIO VIERARO #### [facility] [address] [place] [address] Dr. Krystal Glass PROF 14(COMP METB)on 022 Albumin [Mass/Vol] 2.9 g/dL Critically low 3.4-5.0 Th [facility] Comment on above: Performed By: #### Marquis CAMPOS CMP #### [facility] [address] [place] [address] Dr. Krystal Glass Albumin/Globulin [Mass ratio] 0.7 {ratio} Normal [facility] Comment on above: Performed By: #### C BETH, CMP #### [facility] [address] [place] [address] Dr. Krystal Glass ALP [Catalytic activity/Vol] 112 U/L Normal 46-116 [facility] Comment on above: Performed By: #### C BETH, CMP #### [facility] [address] [place] [address] Dr. Krystal Glass ALT [Catalytic activity/Vol] 58 U/L Normal 14-59 [facility] Comment on above: Performed By: #### C BETH, CMP #### [facility] [address] [address] [address] Krystal Glass Anion gap [Moles/Vol] 11.9 mmol/L Normal [facility] Comment on above: Performed By: #### C BETH, CMP #### [facility] [address] [address] [address] Krystal Glass AST [Catalytic activity/Vol] 19 U/L Normal 15-37 [facility] Comment on above: Performed By: #### C BETH, CMP #### [facility] [address] [place] [address] Dr. Krystal Glass Bilirubin [Mass/Vol] 0.4 mg/dL Normal 0.2-1.0 [facility] Comment on above: Performed By: #### C BETH, CMP #### [facility] [address] [place] [address] Dr. Krystal Glass Calcium [Mass/Vol] 9.4 mg/dL Normal 8.5-10.1 [facility] Comment on above: Performed By: #### C BETH, CMP #### [facility] [address] [place] [address] Dr. Krystal Glass Chloride [Moles/Vol] 101 mmol/L Normal 98-107 [facility] Comment on above: Performed By: #### C BETH, CMP #### [facility] [address] [place] [address] Dr. Krystal Glass CO2 [Moles/Vol] 26.8 mmol/L Normal 21.0-32.0 [facility] Comment on above: Performed By: #### C BETH, CMP #### [facility] [address] [place] [address] Dr. Krystal Glass Creatinine [Mass/Vol] 0.77 mg/dL Normal 0.55-1.02 [facility] Comment on above: Performed By: #### C BETH, CMP #### [facility] [address] [address] [address] Krystal Glass EGFR-AF SOUTH AFRICAN >60 Normal >=60 [facility] Comment on above: Performed By: #### C BETH, CMP #### [facility] [address] [address] [address] Krystal Glass EGFR-NON AF SOUTH AFRICAN >60 Normal >=60 [facility] Comment on above: Performed By: #### C DAMONM, CMP #### [facility] [address] [address] [address] Krystal Glass Globulin (S) [Mass/Vol] 3.9 g/dL Normal [facility] Comment on above: Performed By: #### C BETH, CMP #### [facility] [address] [place] [address] Dr. Krystal Glass Glucose [Mass/Vol] 201 mg/dL Critically high 74-106 [facility] Comment on above: Performed By: #### C BETH, CMP #### [facility] [address] [place] [address] Dr. Krystal Glass Potassium [Moles/Vol] 3.7 mmol/L Normal 3.5-5.1 [facility] Comment on above: Performed By: #### C BETH, CMP #### [facility] [address] [place] [address] Dr. Krystal Glass Protein [Mass/Vol] 6.8 g/dL Normal 6.4-8.2 [facility] Comment on above: Performed By: #### C BETH, CMP #### [facility] [address] [place] [address] Dr. Krystal Glass Sodium [Moles/Vol] 136 mmol/L Normal 136-145 [facility] Comment on above: Performed By: #### C BETH, CMP #### [facility] [address] [place] [address] Dr. Krystal Glass Urea nitrogen [Mass/Vol] 11.0 mg/dL Normal 7.0-18.0 [facility] Comment on above: Performed By: #### C BETH, CMP #### [facility] [address] [place] [address] Dr. Krystal Glass Urea nitrogen/Creatinine [Mass ratio] 14.3 mg/mg Normal [facility] Comment on above: Performed By: #### C BETH, CMP #### [facility] [address] [place] [address] Dr. Krystal Glass URINE MICROSCOPIC ONLYon BACTERIA MODERATE Abnormal NONE SEEN [facility] Comment on above: Performed By: #### July HENLEY UMICRO #### [facility] [address] [place] [address] Dr. Krystal Glass Bacteria identified Cx Nom (U) INDICATED Normal [facility] Comment on above: Performed By: #### July HENLEY UMICRO #### [facility] [address] [place] [address] Dr. Krystal Glass CAST NONE SEEN Normal NONE SEEN [facility] Comment on above: Performed By: #### July HENLEY UMICRO #### [facility] [address] [place] [address] Dr. Krystal Glass Crystals LM Nom (Urine sed) NONE SEEN Normal NONE SEEN [facility] Comment on above: Performed By: #### July HENLEY UMICRO #### [facility] [address] [place] [address] Dr. Krystal Glass Epithelial cells LM Ql (Urine sed) RARE Normal NONE SEEN /RARE [facility] Comment on above: Performed By: #### July HENLEY UMICRO #### [facility] [address] [place] [address] Dr. Krystal Glass MUCOUS NONE SEEN Normal NONE SEEN [facility] Comment on above: Performed By: #### July HENLEY UMICRO #### [facility] [address] [place] [address] Dr. Krystal Glass RBC 5-10 Abnormal 0-2 [facility] Comment on above: Performed By: #### July HENLEY UMICRO #### [facility] [address] [place] [address] Dr. Krystal Glass WBC 20-50 Abnormal NONE SEEN [facility] Comment on above: Performed By: #### E RICHARD HENLEY #### [facility] [address] [place] [address] Dr. Krystal Glass XR ABD FLAT UP_PA [...] MAXIMO LYNN Date: 2022-03-16 14:10 Normal [facility] Coding Summary.on 03-14-2022 Coding Summary. [id number] Gh0bWw+PGhlYWQ+PE1FV UJsY20eiZDoeU7EC0nKX G9GCVDRPQQEHS5YKG7io AZ8UUurW7JjxtUr RjjwiUIxBM82HAg9OTJ4 pIiwIZxkvF8ucGHtN9a2 FjYgGS79fZ76DZdzGQBa KwR6TmDjlpaidNHu U4ymBxNwjUWkGgo+PHRh YmxlIHdpZHRoPScxMDAl QvJfkTxjYS9iYv0tWZKt LWNvbGxhcHNlOiBj m0kkYWLsLCcmIM2aqTjn D6UnuMC9OSXqs1q1Gx50 dHI+XGSlIDX2uPwjDDxl n907QdIin9egOEY9 nKCkHBemTNQ4A36pz7Y0 XWMsTWRxFLN3oOH6bS9b pMozziseH4FcvGJfWdU4 PCM0mKSvqS3bfAlq hivoiZ3lAdm+D92DOL3V GXJGVR7BUwu2A5CpHxxp dHI+CM09HGDcKO38xONd aWGqp1kriSr9DoCk NMIwNOA2wEjyVPkzx8Zx FCXaZ43yzILyj3B5XMTj dNwaaEAbXhMajNJ4pQ4b JYksbpqtx7dvrlrs Ucnoq3ndgp59aG72X20b DMgcAPQjVER5ZSJpENBf yTxkci9ysH5cXi9+IDxj b9wuw6iwpOr2XiUy GJRrmnDlpSzlUPT4v1Gy Hw58X2XtkPgof3IzMdq5 kx31oMNml5S7pFX0AXtt OANssP6oXXdgXeB1 QUFrJbLfcL02cZZkIIng Qs5fhCplfSowMW1sTAWh dennEEBxvG9vAIZcuVJn wLhvBE8nMMEwdkkx t699PoDnWGS3XQDawPTj I9SnzH0fZzEhQMGgDWVz U0SqfPPrAMgxH184OFbi UlB9MRTlhhTkQ2Vf PMMakPdnTbC9f6Y4Wr3F t1LtkygbAVC9AVpjAWA0 IwVlTpXlFgF6E2GjRcl7 DAHcdFxmKA6aB7Hl HHQxzyuqcscukJD5YCXc NYPtqI65qJGlBVavQh2a n6T0r306FURvSDPzjF82 Hi5mwDbyLULsiNIW mT0xmkivv7qptpqvZfEk GKMoRJw3BLv9CABcnCpe VxEsIGR9QcY8EVU2dFBb zH6eyHiadsiqdX5y Oyc+U11iwJ1jPWR4UKS5 mbveOYYsmnExJC47EQ05 V2NqXctsoFHglLQ+PGRp cjQaiYmvRN4vNiEz h3vuv0GoRBifY7ZqPMVx DTlmDfh6GHBuEPL6wHP6 rF9hLGJmROrbd2H5kVK6 J5SbkfIqfz2ky0bm ZULhUEgdH14ssCKbj6B2 OQGtlZP3KPJlvIjvChQz wA39Cwx+THQibIggu4Xk Knpbc5dle3ngvZg8 IjMwJSIgdmFsaWduPSJ0 g0LmCn49W81xAWklUDUx PDBxKBVdLJZlcRubur4w uG2vVd2+PGNvbCB3 oGO2nR1bYTWkWyV0QGfo B784IqZzyUZhXiamv2qt i2oesRm1VqYyOUJvgoZb gWgzOJS4i7KaHf68 R16uHUdkEEEjMQOjOWTc ULUidOwgzg9ujU1gVv0+ GJ4vp5gtjw72dZ00yIL+ IGSdIVJ1rRudMJby UOWppU0lGAamHmN5QAAo ZvJydG12cVXwOExwWt7h iLumqPgmCH5fIZPdvcca s609XuYie1ubHNUb wFHeIWskHYU4C57im6W6 SHRrQGWbAGR3uSE9jL6q bGlnbjogbGVmdDsgdmVy qZwcQIiqGFxmP299 IHRvcDsnPlBhdGllbnQg JyKfGAz3T0HdUsq5CBKm vOzuUI7avHWpRArvSn9j wBnuhAzdBO0mIGBj pknzz887XkVld3knLKZr rHApSWafMAS7E64kd9Q7 BZKdPWBzMGI7jFI3yK7j bGlnbjogbGVmdDsg aqFgyXhhQRbjMKltY655 IHRvcDsnPkJpcnRoIERh mKA9SU38SE08rIFrd1Q9 pDC6H6RbEHQazcdj tvosyLR0RTDgBHCrlL77 Vf8buZerJq7pVSQfVFB0 RYLziBZoW2HmgV9hQcSl GENgOLThB0LjaJUm DSumE857JGabBcY5GGXn iiUdT0OnQOLrzGkuGrU2 u6E0Cn3TD4S4HW42TR19 vIZeq9J0uRS2K0Vl WVDshpjsrirogYC9UVSt HJZubW56Lh8jpGevRk5p XXMoOFG4OFKrbGFsT8Nc iJ2dAyJyDNXbHSTq V1HzcXIxLNrvK105TKfo SnS2TNHbxoPbW8FlFGUx tYhsIbD4e3Q2Rx7RPTl6 EI56GD70gJBhh3H5 oTV4C2DhETQjygzriani zMB5RYImKLDuwT89Md7t aSkjUw7fNFFrEXO7ZNNg cQHmN3EfwM7tUbOc GEWrCYSjK2JdbJUkZMoy E090XVcbIwY8WRGeuzZu R8RpQJSfaStnUjG2m0M8 Gq2JQKEnWI80EJC4 xRE2EL04RS97F6NzIkki dGFibGU+PHRhYmxlIHdp ZHRoPScxMDAlJyBzdHls RJ9oQl9sLGOqELGr xDamvURgVrFhr1yySVLe BUgtXT4xcOhwN7KurDU1 IUEgs6l0Dl79S78tF6Et dXA+UUBubOT7iAT2 sI3sHdCiEtH5HPyoI349 EaHcvVYdDofsz3xid0la bMq7TgE4JQEuoaLaeHrg IXS6x4VwJa30S67m IHdpZHRoPSIxNSUiIHZh kZuyqw7izL3yHu5+PGNv iVP4qGR6yS0xOyFvUvK7 WJuzN229ZvBevAGj Ecpoj0vwb4tanFo2ZdTg KOGxpwYeaNhfMMU5l3Dh Xy98T6DjbDllp7ZuKvw8 ar82iWIsr6Z4sUY8 A9BmBRKqnmqabKOaeKhz ZL1yLSIhuiphCOTpxU4t VAYqN6a8GcMdYhB2EMsm W2QognP5IBYysRAy PMraWRV4N87hp9D4NJLf ZVMeECN5yLV8cX2ooKri bjogbGVmdDsgdmVydGlj PZhdGSzmN112MGZg lKigZAMmpG7xEMGxxEKg wQqtOR5wBYGqxmzmNwDK EZEiGYUACNNFD2xMBWK6 I4OaAbl1XSHewXxm QJ5emXNpVMslDx5hoAoy vCbsUH2sNTSntqdwVSXy jB9rMRAivBPipZzhDQ4g FBLakagcy673DqLu GCL4VKNkeZIsO4QvzF6z NeArXXNuHXSgL8NcbNQh EMdcK017RGgjIsJ1CGOu xuZvX3NzWJZmpKlz CdH4q0V0Hl8kTb6aBQ0f GMC6BI23IJ97pRByd4F8 pGV9U1WnVUDfzlxcgkeb aJN1FYAgEBYtgU56 iIMvYAhmXu1jl0Z8f787 WHArRWRzeS81Gp5daIfl VAAdeYXFzO2xqmprg3jh cjogIzAwMDAwMDt0 MOg1MSQgoLzqWbVfIUT4 KcW1PQM1aZNvdP0qxJsa lslxzO3wSpu+ODcgWWVh ctQ8A1YvGii1HRGh pJcqJG1tiVOwSWrrIh7g hUkeiBfoMP1cWHHuqolw BBIhgT4iLPKqzIOobVzx QS0dJJUkdqcnp630 MvWxVXQ4CHPslISpA2Wo mC7cYvTbWBRrLKTbD1Iu tWMuZYfkU786ECvuQsC5 JBXludOsR6QlIYBm gJzbRdD8u1F2Ov2NSS0w jFS2L5VaHuq8PDItbJcy BE9alQEuAFcwXq0mvAoi aBtrBF0rQTFfyjnd TAJkvW5vSJRqfTXbcDzm UV6gVAWqjzsmt278GcAq SXD4LFFgiBVbR2WtoQ6b ExJcQUOdWZBbE9Ab zBHqLFrdN380SYqqEbQ6 PHCdngVuG7WtDKAyqKec LxD5v5A2Rj1RzHSvDAZh NU66YZ93NN90C6Jl PjwvdGFibGU+PHRhYmxl IHdpZHRoPScxMDAlJyBz pUazXH2rUy5kRXBlKCZb zSkksVAhNjIoc4ix JMZjCDsdFM9wfStvU5Lg iHS6NBGxl4w2Fp56D78j X9OsnSR+AKExkFF7fKY6 xW0cCtVvLtL5TUun W543ItYceAChMvykf0ja m4djrAd1EkZcIZKiieAg lVydCXJ3g5VuQg69H67n IHdpZHRoPSIyMCUi TJYxlThwgz9deK0nMi4+ PIXjbSS5kLM7aO6jZcHc DuH5WTkyX568NtEvdYMw NemhD78aJ2VqaJI+ EIXkGdw3NFGwhBleDS1q lVDtFZmcLy4yUEN8XyVf PoBoKMixU4XwPYZdryrw kzjilHO7URXrCGCi jF32Ua4izAxuRm6oYHCq DOQ6XEGubDKwJ3TmcE6a KoEcICGoJVDpA1CtpLIg CFauG262WTngNqH1 XJUsxeIgE8HdPTEyoFjh DtJ5l4M4Xi3IiAnqxVPv SF2fAqDtVDy6U4UhJyu3 LWWvoGiqDX8wtVSp DMjgMo1qxEfceDbfHR2l FFShexuuo977HfUfb3ws ISOwoVFhLRbmEEB2X58z q7L0ZKOeGUPbZDM0 sTF5fV7qlVwvwzxsaSVh dDsgdmVydGljYWwtYWxp C084DUUhqQegDjWCEwh4 K2AcIok2JHTrtWjh MR9ukCDqOAusOc7plUus cPrgHM5iUQAohsueo332 MzKuf3tcABXjqZMlNOlj QFD3U15ay7B9NROq ZQEeXNU5cSV1yI2kgUyh bjogbGVmdDsgdmVydGlj IMduXNetV017UEPfyCeh Qx4ZZmv9N7SbHhy8 TKVykTqdUA7ayEDfKSrd Ki9zhGbkhBqiPW5hMKXs mcnue639EhQia2hlNZZc vBQfPHogCUF3A15p o0I4BWJdPFCjZFL0oBK2 mN8fbEypcwhwwUXhtBmh mcRckHjkWLzeIVzkV596 IHRvcDsnPlBheWVy OjwvdGQ+GF45zi72D2Gu OavxIed5QYLeKRG0uKA9 xV8jCVAzPUbkg0M6oIA8 E8HsbeAdav4qo3km YXBz (more content not included)... Normal [facility] Office/Cl in Noteon 03-09-2022 [...] fractured her fibula. She was seen at [facility] by trauma surgery and remained in the hospital for 1 week. Since being discharged, she has been in rehab at the [facility] ([facility]3]. The [facility] called to set up this appointment due [...] after patient or guardian consented to allow [employer] to record this visit. 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 HANNAH: [...] Immunizations Vaccin (more content not included)... Normal [facility] Comment on above: Result Comment: Elec tronically Signed By: Angella MAYERS, Axel Bravo\.br\Date and Time Signed: 03/09/22 16:34 EDT\.br\Electronically Co-Signed By: Jaqui Johnson\.br\Date and Time Co-Signed: 03/07/22 15:16 EDT Consent for Treatmenton Consent for Treatment [id number] 20 [id number] #1.00CD:127 Normal [facility] Outside Recordson 03-07-2022 Outside Records [id number]# 1.00CD:127 [facility] Physician Orderon 03-07-2022 Physician Order [id number]# 1.00CD:127 [facility] Progress Note-Physicianon Progress Note-Physician [id number]# 1.00CD:127 [facility] CULTURE URINEon 02-06-2022 CULTURE URINE Isolate 1 [...] F Trimethoprim/Sulfame thoxazole <=20 S F Normal [facility] Comment on above: Performed By: #### C BC #### [facility] [address] [place] [address] Dr. Krystal Glass AMYLASEon 02-04-2022 Amylase [Catalytic activity/Vol] 30 U/L Normal 25-115 [facility] Comment on above: Performed By: #### C BC #### [facility] [address] [place] [address] Dr. Krystal Glass CBC AUTO DIFFon 02-04-2022 BASO # 0.1 103/ul Normal 0.0-0.1 [facility] Comment on above: Performed By: #### U MICRO, ERUR #### [facility] [address] [place] [address] Dr. Krystal Glass Basophils/100 WBC (Bld) 0.4 % Normal 0.2-2.0 [facility] Comment on above: Performed By: #### U MICRO, ERUR #### [facility] [address] [place] [address] Dr. Krystal Glass EO # 0.1 103/ul Normal 0.0-0.7 [facility] Comment on above: Performed By: #### U MICRO, ERUR #### [facility] [address] [place] [address] Dr. Krystal Glass Eosinophils/100 WBC (Bld) 1.0 % Normal 0.9-7.0 [facility] Comment on above: Performed By: #### U MICRO, ERUR #### [facility] [address] [place] [address] Dr. Krystal Glass Erythrocyte distribution width (RBC) [Ratio] 15.3 % Critically high 11.0-15.0 [facility] Comment on above: Performed By: #### U MICRO, ERUR #### [facility] [address] [place] [address] Dr. Krystal Glass Hematocrit (Bld) [Volume fraction] 34.4 % Critically low 36.0-48.0 [facility] Comment on above: Performed By: #### U MICRO, ERUR #### [facility] [address] [place] [address] Dr. Krystal Glass Hemoglobin (Bld) [Mass/Vol] 10.9 g/dL Critically low 12.0-16.0 [facility] Comment on above: Performed By: #### U MICRO, ERUR #### [facility] [address] [place] [address] Dr. Krystal Glass IG # 0.03 10e3/ul Normal 0.00-0.03 [facility] Comment on above: Performed By: #### U MICRO, ERUR #### [facility] [address] [place] [address] Dr. Krystal Glass IG % 0.3 % Normal 0.0-0.5 [facility] Comment on above: Performed By: #### U MICRO, ERUR #### [facility] [address] [place] [address] Dr. Krystal Glass LYMPH # 1.3 103/ul Normal 1.2-3.8 [facility] Comment on above: Performed By: #### U MICRO, ERUR #### [facility] [address] [place] [address] Dr. Krystal Glass Lymphocytes/100 WBC (Bld) 11.0 % Critically low 20.5-60.0 [facility] Comment on above: Performed By: #### U MICRO, ERUR #### [facility] [address] [place] [address] Dr. Krystal Glass MANUAL DIFF REQ NO Normal [facility] Comment on above: Performed By: #### U MICRO, ERUR #### [facility] [address] [place] [address] Dr. Krystal Glass MCH (RBC) [Entitic mass] 30.8 pg Normal 26.7-34.0 [facility] Comment on above: Performed By: #### U MICRO, ERUR #### [facility] [address] [place] [address] Dr. Krystal Glass MCHC (RBC) [Mass/Vol] 31.7 g/dL Normal 29.9-35.2 [facility] Comment on above: Performed By: #### U MICRO, ERUR #### [facility] [address] [place] [address] Dr. Krystal Glass MCV (RBC) [Entitic vol] 97.2 fL Normal 81.0-99.0 [facility] Comment on above: Performed By: #### U MICRO, ERUR #### [facility] [address] [place] [address] Dr. Krystal Glass MONO # 0.7 103/ul Normal 0.3-0.8 [facility] Comment on above: Performed By: #### U MICRO, ERUR #### [facility] [address] [place] [address] Dr. Krystal Glass Monocytes/100 WBC (Bld) 5.6 % Normal 1.7-12.0 [facility] Comment on above: Performed By: #### U MICRO, ERUR #### [facility] [address] [place] [address] Dr. Krystal Glass NEUT # 9.5 103/ul Critically high 1.4-6.5 The [facility] Comment on above: Performed By: #### U MICRO, ERUR #### [facility] [address] [place] [address] Dr. Krystal Glass Neutrophils/100 WBC (Bld) 81.7 % Critically high 43.0-75.0 [facility] Comment on above: Performed By: #### U MICRO, ERUR #### [facility] [address] [address] [address] Krystal Glass Platelet mean volume (Bld) [Entitic vol] 9.7 fL Normal 9.5-13.5 [facility] Comment on above: Performed By: #### U MICRO, ERUR #### [facility] [address] [address] [address] Krystal Glass PLT 312 103/ul Normal 150-450 [facility] Comment on above: Performed By: #### U MICRO, ERUR #### [facility] [address] [address] [address] Krystal Glass RBC 3.54 106/ul Critically low 4.20-5.40 [facility] Comment on above: Performed By: #### U MICRO, ERUR #### [facility] [address] [address] [address] Krystal Glass WBC 11.7 103/ul Critically high 4.0-11.0 [facility] Comment on above: Performed By: #### U MICRO, ERUR #### [facility] [address] [address] [address] Krystal Glass ER URINE PROFILEon 2 Bilirubin Ql (U) Negative Normal NEGATIVE The [facility] Comment on above: Performed By: #### U MICRO, ERUR #### [facility] [address] [place] [address] Dr. Krystal Glass Clarity (U) CLOUDY Abnormal CLEAR [facility] Comment on above: Performed By: #### U MICRO, ERUR #### [facility] [address] [address] [address] Krystal Glass Color (U) YELLOW Normal YELLOW [facility] Comment on above: Performed By: #### U MICRO, ERUR #### [facility] [address] [place] [address] Dr. Krystal ROSARIO A micrscopic examination will be performed if indicated. Normal [facility] Comment on above: Performed By: #### U MICRO, ERUR #### [facility] [address] [address] [address] Krystal Glass Glucose Ql (U) Negative Normal NEGATIVE The [facility] Comment on above: Performed By: #### U MICRO, ERUR #### [facility] [address] [address] [address] Krystal Glass Hemoglobin Ql (U) TRACE Abnormal NEGATIVE The [facility] Comment on above: Performed By: #### U MICRO, ERUR #### [facility] [address] [place] [address] Dr. Krystal Glass Ketones Ql (U) Negative Normal NEGATIVE [facility] Comment on above: Performed By: #### U MICRO, ERUR #### [facility] [address] [place] [address] Dr. Krystal Glass LEUKOCYTES MODERATE Abnormal NEGATIVE [facility] Comment on above: Performed By: #### U MICRO, ERUR #### [facility] [address] [place] [address] Dr. Krystal Glass Nitrite Ql (U) Positive Abnormal NEGATIVE [facility] Comment on above: Performed By: #### U MICRO, ERUR #### [facility] [address] [place] [address] Dr. Krystal Glass pH (U) 7.0 [pH] Normal 5-9 [facility] Comment on above: Performed By: #### U MICRO, ERUR #### [facility] [address] [place] [address] Dr. Krystal Glass SPEC GRAVITY 1.010 Normal 1.005-<=1.025 [facility] Comment on above: Performed By: #### U MICRO, ERUR #### [facility] [address] [place] [address] Dr. Krystal Glass UA PROTEIN Negative Normal NEGATIVE/ TRACE [facility] Comment on above: Performed By: #### U MICRO, ERUR #### [facility] [address] [place] [address] Dr. Krystal Glass UR MICRO IND INDICATED Normal [facility] Comment on above: Performed By: #### U MICRO, ERUR #### [facility] [address] [place] [address] Dr. Krystal Glass Urobilinogen Qn (U) 0.2 {Daily'U}/dL Normal 0.2 - 1. 0 [facility] Comment on above: Performed By: #### U MICRO, ERUR #### [facility] [address] [place] [address] Dr. Krystal Glass LIPASEon 02-04-2022 Lipase [Catalytic activity/Vol] 90.0 U/L Normal 73.0-393.0 [facility] Comment on above: Performed By: #### C BC #### [facility] [address] [place] [address] Dr. Krystal Glass PROF 14(COMP METB)on 022 Albumin [Mass/Vol] 2.8 g/dL Critically low 3.4-5.0 [facility] Comment on above: Performed By: #### C BC #### [facility] [address] [place] [address] Dr. Krystal Glass Albumin/Globulin [Mass ratio] 0.8 {ratio} Normal [facility] Comment on above: Performed By: #### C BC #### [facility] [address] [place] [address] Dr. Krystal Glass ALP [Catalytic activity/Vol] 106 U/L Normal 46-116 [facility] Comment on above: Performed By: #### C BC #### [facility] [address] [place] [address] Dr. Krystal Glass ALT [Catalytic activity/Vol] 21 U/L Normal 14-59 [facility] Comment on above: Performed By: #### C BC #### [facility] [address] [place] [address] Dr. Krystal Glass Anion gap [Moles/Vol] 14.2 mmol/L Normal [facility] Comment on above: Performed By: #### C BC #### [facility] [address] [place] [address] Dr. Krystal Glass AST [Catalytic activity/Vol] 16 U/L Normal 15-37 [facility] Comment on above: Performed By: #### C BC #### [facility] [address] [place] [address] Dr. Krystal Glass Bilirubin [Mass/Vol] 0.9 mg/dL Normal 0.2-1.0 [facility] Comment on above: Performed By: #### C BC #### [facility] [address] [place] [address] Dr. Krystal Glass Calcium [Mass/Vol] 9.2 mg/dL Normal 8.5-10.1 [facility] Comment on above: Performed By: #### C BC #### [facility] [address] [place] [address] Dr. Krystal Glass Chloride [Moles/Vol] 103 mmol/L Normal 98-107 [facility] Comment on above: Performed By: #### C BC #### [facility] [address] [place] [address] Dr. Krystal Glass CO2 [Moles/Vol] 26.4 mmol/L Normal 21.0-32.0 [facility] Comment on above: Performed By: #### C BC #### [facility] [address] [place] [address] Dr. Krystal Glass Creatinine [Mass/Vol] 0.72 mg/dL Normal 0.55-1.02 [facility] Comment on above: Performed By: #### C BC #### [facility] [address] [place] [address] Dr. Krystal Glass EGFR-AF SOUTH AFRICAN >60 Normal >=60 [facility] Comment on above: Performed By: #### C BC #### [facility] [address] [place] [address] Dr. Krystal Glass EGFR-NON AF SOUTH AFRICAN >60 Normal >=60 [facility] Comment on above: Performed By: #### C BC #### [facility] [address] [place] [address] Dr. Krystal Glass Globulin (S) [Mass/Vol] 3.6 g/dL Normal [facility] Comment on above: Performed By: #### C BC #### [facility] [address] [place] [address] Dr. Krystal Glass Glucose [Mass/Vol] 181 mg/dL Critically high 74-106 T [facility] Comment on above: Performed By: #### C BC #### [facility] [address] [place] [address] Dr. Krystal Glass Potassium [Moles/Vol] 3.6 mmol/L Normal 3.5-5.1 [facility] Comment on above: Performed By: #### C BC #### [facility] [address] [place] [address] Dr. Krystal Glass Protein [Mass/Vol] 6.4 g/dL Normal 6.4-8.2 [facility] Comment on above: Performed By: #### C BC #### [facility] [address] [place] [address] Dr. Krystal Glass Sodium [Moles/Vol] 140 mmol/L Normal 136-145 [facility] Comment on above: Performed By: #### C BC #### [facility] [address] [place] [address] Dr. Krystal Glass Urea nitrogen [Mass/Vol] 16.0 mg/dL Normal 7.0-18.0 [facility] Comment on above: Performed By: #### C BC #### [facility] [address] [place] [address] Dr. Krystal Glass Urea nitrogen/Creatinine [Mass ratio] 22.2 mg/mg Normal [facility] Comment on above: Performed By: #### C BC #### [facility] [address] [place] [address] Dr. Krystal Glass URINE MICROSCOPIC ONLYon BACTERIA SMALL Abnormal NONE SEEN [facility] Comment on above: Performed By: #### U MICRO, ERUR #### [facility] [address] [place] [address] Dr. Krystal Glass Bacteria identified Cx Nom (U) INDICATED Normal [facility] Comment on above: Performed By: #### U MICRO, ERUR #### [facility] [address] [place] [address] Dr. Krystal Glass CAST NONE SEEN Normal NONE SEEN [facility] Comment on above: Performed By: #### U MICRO, ERUR #### [facility] [address] [place] [address] Dr. Krystal Glass Crystals LM Nom (Urine sed) NONE SEEN Normal NONE SEEN [facility] Comment on above: Performed By: #### U MICRO, ERUR #### [facility] [address] [place] [address] Dr. Krystal Glass Epithelial cells LM Ql (Urine sed) RARE Normal NONE SEEN /RARE [facility] Comment on above: Performed By: #### U MICRO, ERUR #### [facility] [address] [address] [address] Krystal Glass MUCOUS NONE SEEN Normal NONE SEEN [facility] Comment on above: Performed By: #### U MICRO, ERUR #### [facility] [address] [address] [address] Krystal Glass RBC 5-10 Abnormal 0-2 [facility] Comment on above: Performed By: #### U MICRO, ERUR #### [facility] [address] [address] [address] Krystal Glass WBC 20-50 Abnormal NONE SEEN [facility] Comment on above: Performed By: #### U MICRO, ERUR #### [facility] [address] [address] [address] Krystal Glass [facility] Recordson 01-31 [facility] [id number] #[id number] Normal [facility] Ambulatory Visit Summaryon 0 01-30-2022 Ambulatory Visit [...] EDT With: RYAN MAYERS, Janna Bhagat Where: [facility] Normal [address] [place] [address] [place] [address]- \.br\ Medications\.br \ What How Much When [...] longer receiving treatment for.\.br\ Hypercholestere darcy\.br\ \.br\ [facility] Patient Educationon 01-31-20 Patient Education Obstetrics and [...] Follow these instructions at home: ? Take ojof-woc-bknuojo and prescription medicines only as told by [...] 07/20/2007 Document Revised: 07/03/2018 Document Reviewed: 08/22/2017 [employer] Patient Education ? 2019 ttwick. Normal [facility] Urology Office/Clinic Noteon 01-30-2022 Urology Office/Clinic Note [...] E&M of New Patient Low 30-44 Min 80832 Follow-up No qualifying data available Patient Education [...] Recorded pneumococcal 23-valent vaccine 08/06/1999 Recorded Normal [facility] Comment on above: Result Comment: Elec tronically Signed By: SRIRAM BENOIT, RINA Mcdowell\.br\Date and Time Signed: 01/30/22 13:43 EDT Telephone Encounteron 2021 Route Specialist Authentication Interface Message Text Patient's son calling to ask if Dr Sher is able to assist with coordinating with an ortho trauma surgeon at [facility] in [place] which is much closer to where she is in SNF, 1 1/2 hr from [place] Please advise. Thank you! Normal [facility] BASIC METABOLIC PANELon 06-0 Anion gap [Moles/Vol] 12 mmol/L Normal 10-20 [facility] Comment on above: Performed By: #### 8 2948 #### NURSING GLUCOSE PROGRAM [address] [place] [address], [address] Calcium [Mass/Vol] 8.2 mg/dL Low 8.4-10.4 [facility] Comment on above: Performed By: #### 8 2948 #### NURSING GLUCOSE PROGRAM [address] [place], [address] Chloride [Moles/Vol] 98 mmol/L Normal 97-111 [facility] Comment on above: Performed By: #### 8 2948 #### NURSING GLUCOSE PROGRAM [address] [place], [address] CO2 [Moles/Vol] 27 mmol/L Normal 21-30 [facility] Comment on above: Performed By: #### 8 2948 #### NURSING GLUCOSE PROGRAM [address] [place], [address] Creatinine [Mass/Vol] 0.55 mg/dL Normal 0.50-1.10 [facility] Comment on above: Performed By: #### 8 2948 #### NURSING GLUCOSE PROGRAM [address] [place], [address] ESTIMATED GFR (CKD-EPI) 89 mL/min/1.73sqm Normal >=60 [...] Inclusion of Race in Diagnosing Kidney Disease. [place] Journal of Kidney Diseases 2021;79(2):268-88.e1. 2. N Engl J Med 1 Vol. 385 Issue 19 Pages 1388-6921 Performed By: #### 8 2948 #### [facility]URSING GLUCOSE PROGRAM [address] [place], [address] Glucose [Mass/Vol] 226 mg/dL High 80-116 [facility] Comment on above: Performed By: #### 8 2948 #### NURSING GLUCOSE PROGRAM [address] [place], [address] Potassium [Moles/Vol] 3.5 mmol/L Normal 3.3-5.3 [facility] Comment on above: Performed By: #### 8 2948 #### NURSING GLUCOSE PROGRAM [address] [place], [address] Sodium [Moles/Vol] 133 mmol/L Low 135-148 [facility] Comment on above: Performed By: #### 8 2948 #### NURSING GLUCOSE PROGRAM [address] [place], [address] Urea nitrogen [Mass/Vol] 13 mg/dL Normal 8-22 [facility] Comment on above: Performed By: #### 8 2948 #### NURSING GLUCOSE PROGRAM [address] [place], [address] Basic metabolic 2000 panelon 01-09-2022 Anion gap [Moles/Vol] 12 mmol/L [facility] Calcium [Mass/Vol] 8.2 mg/dL Low 8.4 - 10. 4 mg/dL [facility] Chloride [Moles/Vol] 98 mmol/L 97 - 111 mmol/L [facility] CO2 [Moles/Vol] 27 mmol/L 21 - 30 mmol/L [facility] Creatinine [Mass/Vol] 0.55 mg/dL 0.50 - 1.10 mg/dL [facility] GFR/1.73 sq M.predicted MDRD (S/P/Bld) [Vol rate/Area] 89 mL/min/{1.73_m2} >=60 mL/min/1.73sqm [facility] Comment on above: 2020 CKD EPI Equatio [...] Inclusion of Race in Diagnosing Kidney Disease. [place] Journal of Kidney Diseases 202;79(2):268-88.e1. 2. N Engl J Med 2020 Vol. 385 Issue 19 Pages 0245-3928 Glucose [Mass/Vol] 226 mg/dL High 80 - 116 mg/dL [facility] Interpretation and review of laboratory results Abnormal [facility] Potassium [Moles/Vol] 3.5 mmol/L 3.3 - 5.3 mmol/L [facility] Sodium [Moles/Vol] 133 mmol/L Low 135 - 148 mmol/L [facility] Urea nitrogen [Mass/Vol] 13 mg/dL 8 - 22 mg/dL [facility] CBC panel Auto (Bld)Ordered By: Jermaine Cardona on 01-09-2022 Erythrocyte distribution width (RBC) [Ratio] 14.1 % 11.5 - 14.5 % [facility] Hematocrit (Bld) [Volume fraction] 23.4 % Low 36.0 - 46.0 % [facility] Hemoglobin (Bld) [Mass/Vol] 8.0 g/dL Low 12.0 - 15.0 g/dL [facility] Interpretation and review of laboratory results Abnormal [facility] MCH (RBC) [Entitic mass] 29.6 pg 26.0 - 34.[address] [facility] MCHC (RBC) [Mass/Vol] 34.3 g/dL 32.0 - 35.9 g/dL [facility] MCV (RBC) [Entitic vol] 86 fL 80 - [address] [facility] Platelet mean volume (Bld) [Entitic vol] 8.3 fL 7.5 - 11.[address] [facility] Platelets (Bld) [#/Vol] 251 10*3/uL 150 - 400 K/uL [facility] RBC (Bld) [#/Vol] 2.72 10*6/uL Low [facility] WBC (Bld) [#/Vol] 12.6 10*3/uL High 4.5 - 11.5 K/uL [facility] COMPLETE BLOOD COUNTon 01-09 Erythrocyte distribution width (RBC) [Ratio] 14.1 % Normal 11.5-14.5 [facility] Comment on above: Performed By: #### 8 6138 #### NURSING GLUCOSE PROGRAM [address] [place], [address] Hematocrit (Bld) [Volume fraction] 23.4 % Low 36.0-46.0 [facility] Comment on above: Performed By: #### 8 2941 #### NURSING GLUCOSE PROGRAM [address] [place], [address] Hemoglobin (Bld) [Mass/Vol] 8.0 g/dL Low 12.0-15.0 [facility] Comment on above: Performed By: #### 8 2948 #### NURSING GLUCOSE PROGRAM [address] [place], [address] MCH (RBC) [Entitic mass] 29.6 pg Normal 26.0-34.0 [facility] Comment on above: Performed By: #### 8 2948 #### NURSING GLUCOSE PROGRAM [address] [place], [address] MCHC (RBC) [Mass/Vol] 34.3 g/dL Normal 32.0-35.9 [facility] Comment on above: Performed By: #### 8 2948 #### NURSING GLUCOSE PROGRAM [address] [place], [address] MCV (RBC) [Entitic vol] 86 fL Normal 80-100 [facility] Comment on above: Performed By: #### 8 2948 #### NURSING GLUCOSE PROGRAM [address] [place], [address] Platelet mean volume (Bld) [Entitic vol] 8.3 fL Normal 7.5-11.2 [facility] Comment on above: Performed By: #### 8 2948 #### NURSING GLUCOSE PROGRAM [address] [place], [address] Platelets (Bld) [#/Vol] 251 10*3/uL Normal 150-400 [facility] Comment on above: Performed By: #### 8 2948 #### NURSING GLUCOSE PROGRAM [address] [place], [address] RBC (Bld) [#/Vol] 2.72 10*6/uL Low 4.00-5.20 [facility] Comment on above: Performed By: #### 8 2948 #### NURSING GLUCOSE PROGRAM [address] [place], [address] WBC (Bld) [#/Vol] 12.6 10*3/uL High 4.5-11.5 [facility] Comment on above: Performed By: #### 8 2948 #### NURSING GLUCOSE PROGRAM [address] [place], [address] Care Plan Noteon 01-09-2022 Route Specialist Authentication Interface Message Text Problem: Routine Care: [...] of transfer via DM, [facility] Normal [facility] Route Specialist Authentication Interface Message Text Problem: Routine Care: [...] date, tolerating diet, SNF placement Normal [facility] Coding Summary.on 01-09-2022 Coding Summary. [id number] Gh0bWw+PGhlYWQ+PE1FV WUwD40ieSNmxH4IY6pFA Q5HWLYZNKRUOX3UGJ9jb GI5LDbaG0QvtlCr GjineSHpTX43LYe1UUV4 eRsdMDdnnK7cwJIkV9o3 PeJuYD60lS88GFjfMRNm JzY8ChEymenxeWEc A6twVnBdfLDeIwe+PHRh YmxlIHdpZHRoPScxMDAl XhAadPapNT2tKe7iREFy LWNvbGxhcHNlOiBj m3efAYDpUOzrLM0ahCzo R7BylIW3NQToa9v2Ph88 dHI+DRNlKFC2dAkkKXxy z884DsNwx8rhZFR6 oJFkKEbdSHY7A31yu2S2 DVNhXARnTZV6qYB3tW6x oAgycbozK1ElkTQtLvM1 ZXL6tCEivK3rlXma gkqrbQ8dLbo+J30YIG7G VURNEV3BZkp1J7HaRmyt dHI+IV30VOPvXS18lAEk qVQuh3cnfZb7PrGp YRJdGRQ8uSgfDNeqy5Vo YQXnK83mpTYfo3S7PHOx pKdypSWxAbXbySU1tX8c BNkuirtet7zjgitk Yatlj0xnhk40gK18Y87n UOioWJPcCBV9GELfWTRp iSshdm4zsO6aJe3+IDxj v6etv2xihNd4OgNx KECxkkZitKxhUKV7g6Om Ab92B6WpeLxfk8UzSag1 rx32fLYwc3L5tMT2ZKaq MOUkzO3jSKwpCtC1 ADGlLfFzrF24fYCzJBcm Th2rnHjjcShpLD0dUKLx ihmgNREqmQ9wVRNrgIVf zIfmVM0nVXDbgdha p431LkQyREJ1LWLlvVEr F8EyfT4gRtDeSHIoOVWd V6TxtYClXKuaS168IGkl HaX4BBRzpdZcA1Xt BEUmpFafLrS7e1M3An9T y2RlbdmlYMH8XXttOOE7 DoZ9ZuKiNkO7Y3VtSkw3 RYIloTrtRZ2nM2Pu HCIdnjfkrvivfWJ4JIIl GXMllM85lGSsZGyoEy7j z3O1x933TBEzLNYsvQ49 Ly9biOxePPFdaXFF lZ6iviqpk0iccorqNlIy UMHjXZd9ASs1AXQiqIgb ChLxVLE0WqP5YPX7eYFg mD6ifDlvrveusB8y Oyc+Y76lfC0iSXV4QBL8 ptzhLSVwqaAlCQ07KF09 H8MyRvgimKPqjNW+PGRp wjEzdMigNZ5rCnWr v8xzn3TxIRfqH1AxMIGg AMlnMqf5LZImTEW8tPA4 lU0hMOIrEPnwb5Y7kEZ8 P4RcmkIanj6oe6ka OXDeSAtwW14wlSVbc1U0 VNSldAP3DXLwkKedLyUt oT70Bun+TTWydBwuk4Cb Pldpp1yhu6jleIv8 IjMwJSIgdmFsaWduPSJ0 g0VeOz66O42xBFdwVJPe DBVnQJTiVSAolUrdic8l aT9nZc3+PGNvbCB3 wWL0rI1wTGCfNmI0GOvr D351WhQntDAhEsxbd2yh f3zfgIw2XrJqFZOluhKa cMicIIL8g4TaZk09 R22xMJyjVBTtPACbEZLj GMEjvYqlqv3sgS1cNm9+ MH8jk3dnex19lC41lGQ+ DFNeEHG3aThmZByg OOAqgU2dALnhEoY2ZVBi BfWkiO06hUGmJHgjTd5h pEeoxGpfJS7pQNQvbxlk o030HdUwj5jnRIOj kTHpPLvzLVJ8G67be5A6 HUPlRMNlNRJ4jZG0yF0v bGlnbjogbGVmdDsgdmVy fJmtJJwwNPwvP019 IHRvcDsnPlBhdGllbnQg MmQyGXp0H0DqZen1RNDf bFslMU9xnVUxAIzvQr1e wTglwIyrAM7aPRTd gjdot170ZcIut0tmMIHi cETpKDsrWNI0K40fh8T2 RXCdFWRrEEL2rFJ4aQ9o bGlnbjogbGVmdDsg reOciIqvGXjgADdcD126 IHRvcDsnPkJpcnRoIERh gFS4QC35IX15cGTih6F7 qHP9Z5RwEFPhvrzh fivqzKU9OEXmLZArkE02 Ou0fiBebZr5dQWBjDPN1 IZBkyQXlO8SzzD1nMhMk IUJkVWSoN7JyuXBi GNlnS822PLqwPsH6DPKm wlXsI5OuBKCorZphFuW4 v2L2Oa5TO0W2YB33UD65 oZRub7D4oSW4G3Wr KSHewjseweycwQE8ARYp OZItyT21Sf9ktJoeOg9h TCApWEB6YJEjzEOjM0Zy yJ4xAbEcUUKgSYDp G8BmiQLfCQypS979OJjh IvX2HHMhydBmI3DdQQXl rEoyVyJ2o0H7Lv7AJOv8 WC48DH53xXUsr7E0 qPE5W3EpIHPphanufpub dXH6UHViIWKdqR80Wo8i hTqtOf1fRRSkOMM0QILz sODdU1GukE4hDtSx UPPbBVWwV0OlzQKaARnt E136UFggKaV0HNGycpUc W9GtEWFckKnqPfU6m1V9 As2ZSOMyAH25OGO8 hKQ1RL49VD50G5PiQpjc dGFibGU+PHRhYmxlIHdp ZHRoPScxMDAlJyBzdHls PG9rUr2oGSWoZRCl yLucgYEdCeWba2coVVKk GGehSG7dxEalN6ErpEN9 VSLil6l2Zx21E03uN5Bm dXA+FWVjuMQ4mMV8 nK8tAeRrApK2OLksZ316 GnCoaGBuAmqln4nbx7nh hHr8QkQ9DWWxeuGmhGuq XFG1m9ZyJw42T31a IHdpZHRoPSIxNSUiIHZh lDgrrt9ctT8mEr1+PGNv hNH3lOV8pY5gLkDiRgE0 RQrhL158JjNmsPSw Xpixo3lds5wojMd6GxHc OZIirwIbmRqhTKG5u6Vd Ks84U3MloNyzl8YjRgc2 nb76ePYnb9W2fOR0 H4QiUYBuzkblnHEfqRpl OG3oYLSgfcjdTLDbzI2d QHPiZ2u2WnKkSxT8UPsw W3IslgD1BCShrMFk YNvxZXR0V78bb1K4ZTIm LVRjJWZ5fSK1hM8viWtb bjogbGVmdDsgdmVydGlj CDxpQUxdB119KMZn tSemRJRuuK0nRHKdwXWm xFwpOZ1aNLGrmwvvDxQC CNAqJWOVBLDXF2iHPHI0 C3StDwa9YWIjxJzk FC5kvTZuRJrcLh7enQqx wPloXN3bUSTzzjuqJDUb yO7wCHIkzAEtvNiwSQ0n WQZlwihlo106BwUd UBJ9GBDhhLKwC4OwtN9f YuRkYEUdCUTsZ3ZqfATi YKjsD269YRvfGoV8XBAq meVrT5UlUACvzHje FiD7l1G9Ze8hDa2cFZ3h GIT4GH08GE32jEVqs7N6 nQU8Q7GwHNWifdagwnlb hYW3ELLsGMFqeZ97 iIJxUBjmCv0vw3S6e995 PMCkFONatN17Dp2fyNwu SJKrgBTWtK4ktyljh3zx cjogIzAwMDAwMDt0 BZj7DFGkeCryIsLjLFD4 SmT0PMB9sFStiV5xdXkv wsrcnA2cMck+ODcgWWVh lkR3N1EgTyi5GLZj cKjyTL6qqJOsYMdoAe8z tAbrlCcgKS0jGZFpptvl GKDzqF4pXVBnvFWrzUgo MW6uRODkprzwa196 GgSiPSI9KCElzWXyE8Yg eE6oRxSlBNVuPOOvG9Mq yOTnNDriC833CMqyXnV6 SEWpgwZyT7JwTACb uTjhJbY8j7M0Ib9TUG3b lIK4T9HtSfp4ZZGujUgp UA2tvZZoEMrrEh6dpLkh mQlcNU8eOPHtqvpm XKMkjH0oSHIuxTXqaPui KV1aAUHepbjty381EgKl GSM5PJVbeLPgL7KpiC4x PwAtZXQbIKVsM3Ev vPNcVSuoM171TStcRqA2 XZLpcwOdI7PgAOWgfZak IwZ0r5I2Zl6AzDKpW2Wo E0j4C0EvFnbekQO+ WT13XLTnZT95jVMzwHOa n9rydEt8BlIhYKAsOIC8 iQxcQHrwg8PwVVDkS25z uRQfz5V1EHVkeLqz zWTbLjQlxIO3sY2gNLsi pldhu6zcyfrqQlbyx8ob ir14dE07C75eSHpmVUAw PSIzMCUiIHZhbGln cx0hyC3sVk1+PGNvbCB3 eUE1nQ3tTlGpPnU2QZlg W578ShDyoBKrMsrsn8kj v6weoVy4HsVuEXMh wrGegLzyCIQ0k1IfTk67 B01eGJdpGAXwGUSfJWYa EQMdhSfybk8oeQ5tEu0+ GI1yb4npbj59aN63 dHI+HKJcGTJ2vBmiDKyl DZJuhG2bZCduPsA2BJHu EsQemZ09fYNlGEmzNr1c nZlafXkoQX1lAKPx otpko418AyQvu9rwNFVc gKVcBFhaVAC9G66ig6I4 KEMnPRQzJPA6oTD5bE4w bGlnbjogbGVmdDsg ocTviWvqRSsbHXtmL134 OSEkeMsrWyKnuLDvJ1yj enECMA7sJnfzhXM+PHRk YDF7fWidLZhnXHUn rY2sNKLdX1i7JlDtCqV0 UVnkJ6OhvqY2LSBbrNIp NSRnuUVDtJ4bkspdq9qa cjogIzAwMDAwMDt0 BFm4FHZwaXzxOtQwSCJ8 ZnK7JIV7sWKpvQ3mfHzi mixiqH2dQsu+RklOOjwv dGQ+MYXxEDO4dXlj OPniFYNibZ4mUSCwL6q6 HfGmQvR7JPacR2QbsmW4 UYOxrUYdSGBjtPLSdU6v wyoie8fsbjzvIoTb CAFjTUu8TQt0VVGylGmk EjLgHMB2AlW7GGG4zIFu tS4xyCeayqtrdQ0nZgq+ TVJOOjwvdGQ+PHRk KAG8tAlcXDsnFZWmcJ1i ZIZvS7f3NrIfRiZ7ODib P9TaqkN2XAMicVWnDOJs iYBThP3cmnlsn8gh giugDcOsAJFkPYq8DCs7 VMOrqLcsGkEtRGW3PvO2 SHZ6tVDdqU8fwTeqdtzs tS6qUkg+NEG7YPX5 RK57IN98R6KtQzgoqSGv bGU+PHRhYmxlIHdpZHRo YFodDBJgVtUwvQnxBM5c Ep1jOUMtNPJulBoa cHNl (more content not included)... Normal [facility] Discharge Planning Noteon Route Specialist Authentication Interface Message Text CASE MANAGEMENT/SOCIAL WORK SNF DC NOTE: Pt has been cleared for transfer to [facility] on this date Pt will be transferred to [facility] via Yusuf Wilson and Nadia ([id number]) at 3:30 PM Nursing report may be called to [phone] Support person notified: pt and son at bedside Patient/Family, team aware of above and agreeable. For discharge, please ensure the following is completed: ??? MD to place DC order, reconcile meds, and print narcotics to go with patient to SNF ??? [place] to print Discharge Summary, [place], Summary of Care, Narcotic Scripts, and Signature Page and place in a packet to be given to canal driver If transport/discharge needs to be adjusted/cancelled, team (MD/RN) to cancel transport, update support person, and update receiving facility. Radha Cox [facility], AIRPORT MAINTENANCE LABORER [phone] Normal [facility] GLUCOSE, FINGERSTICK-IN OFFI CEon 01-09-2022 Glucose [Mass/Vol] 148 mg/dL High 80-116 [facility] Comment on above: Performed By: #### A KHRIS #### S PATHOLOGY LABORATORY [address] [place] [address], [phone] Glucose [Mass/Vol] 148 mg/dL High 80 - 116 mg/dL [facility] Interpretation and review of laboratory results Abnormal [facility] Glucose [Mass/Vol] 162 mg/dL High 80-116 [facility] Comment on above: Performed By: #### A KHRIS #### S PATHOLOGY LABORATORY [address] [place] [address], [phone] Glucose [Mass/Vol] 162 mg/dL High 80 - 116 mg/dL [facility] Interpretation and review of laboratory results Abnormal [facility] Glucose [Mass/Vol] 156 mg/dL High 80-116 [facility] Comment on above: Performed By: #### 8 2948 #### NURSING GLUCOSE PROGRAM [address] [place], [address] Glucose [Mass/Vol] 156 mg/dL High 80 - 116 mg/dL [facility] Interpretation and review of laboratory results Abnormal [facility] Laboratory - Blood bankon Major crossmatch [Interp] Compatible (E) [facility] No Panel Informationon 01-09 Blood Product Code [id number] [facility] ealt Blood Product Description Red Blood Cells [facility] Blood Product Unit Type [id number] [facility] Comment on above: A Pos Status Transfused [facility] Progress Noteson 01-09-2022 Route Specialist Authentication Interface Message Text Pre-cert remains pending for Brooke this date. SW sent updated clinicals. [address]19 initiated in [facility] Transport form on [employer]-Drive. SW will continue to follow. Radha Cox [facility], [facility] [phone] Normal [facility] [employer] Interface Message Text --------- GENERAL INFORMATION --------- REGULAR NURSING FLOOR - STAFF NOTE Patient seen and examined on 01/09/2022 Patient Name: Toribio Betts Admission Date: 01/01/2022 -------- INTERVAL HISTORY/EVENTS ------ ??? Background: Toribio Betts???is a 86 year old???female???broug ht in by EMS as a transfer from [facility]???following fall from standing on 12/31. She fell and her leg twisted under her. She is on Eliquis. ??? Hospital Course: 12/31/2021: S/p fall, patient was admitted to [facility] 01/01/2022: No acute events overnight 01/02/2022:???Underwen [...] trauma / emergency general surgery Personal pager: [phone] Trauma (more content not included)... Normal [facility] RED BLOOD CELL UNIT STATUSon 01-09-2022 Blood product unit Nom (BPU) [ID] [id number] [facility] Blood product unit Nom (BPU) [ID] [id number] [facility] ANTI FXA-LMW HEPARINon 01-08 ANTI FXA-LMW HEPARIN ASSAY 0.42 IU/mL Normal [facility] Comment on above: Order Comment: The r ecommended therapeutic range for treatment of thrombosis with Low Molecular Weight Heparin is 0.5 - 1.0 IU/mLThe recommended range for VTE prophylaxis with Low Molecular Weight Heparin is 0.2 - 0.4 IU/mL. Performed By: #### 8 2948 #### NURSING GLUCOSE PROGRAM [address] [place] [address], [address] LMW Heparin Chromogenic method Qn (PPP) 0.42 IU/mL [facility] The recommended therapeutic range for treatment of thrombosis with Low Molecular Weight Heparin is 0.5 - 1.0 IU/mL The recommended range for VTE prophylaxis with Low Molecular Weight Heparin is 0.2 - 0.4 IU/mL. [facility] BASIC METABOLIC PANELon Anion gap [Moles/Vol] 13 mmol/L Normal 10-20 [facility] Comment on above: Performed By: #### 8 2948 #### NURSING GLUCOSE PROGRAM [address] [place] [address], [address] Calcium [Mass/Vol] 8.2 mg/dL Low 8.4-10.4 [facility] Comment on above: Performed By: #### 8 2948 #### NURSING GLUCOSE PROGRAM [address] [place] [address], [address] Chloride [Moles/Vol] 100 mmol/L Normal 97-111 [facility] Comment on above: Performed By: #### 8 2948 #### NURSING GLUCOSE PROGRAM [address] [place], [address] CO2 [Moles/Vol] 27 mmol/L Normal 21-30 [facility] Comment on above: Performed By: #### 8 2948 #### NURSING GLUCOSE PROGRAM [address] [place] [address], [address] Creatinine [Mass/Vol] 0.60 mg/dL Normal 0.50-1.10 [facility] Comment on above: Performed By: #### 8 2948 #### NURSING GLUCOSE PROGRAM [address] [place], [address] ESTIMATED GFR (CKD-EPI) 87 mL/min/1.73sqm Normal >=60 [facility] Comment on above: Result Comment: [...] Inclusion of Race in Diagnosing Kidney Disease. [place] Journal of Kidney Diseases 2021;79(2):268-88.e1. 2. N Engl J Med 1 Vol. 385 Issue 19 Pages 3708-0449 Performed By: #### 8 2948 #### NURSING GLUCOSE PROGRAM [address] [place], [address] Glucose [Mass/Vol] 135 mg/dL High 80-116 [facility] Comment on above: Performed By: #### 8 2948 #### NURSING GLUCOSE PROGRAM [address] [place], [address] Potassium [Moles/Vol] 3.8 mmol/L Normal 3.3-5.3 [facility] Comment on above: Performed By: #### 8 2948 #### NURSING GLUCOSE PROGRAM [address] [place], [address] Sodium [Moles/Vol] 136 mmol/L Normal 135-148 [facility] Comment on above: Performed By: #### 8 2948 #### NURSING GLUCOSE PROGRAM [address] [place], [address] Urea nitrogen [Mass/Vol] 12 mg/dL Normal 8-22 [facility] Comment on above: Performed By: #### 8 2948 #### NURSING GLUCOSE PROGRAM [address] [place], [address] Basic metabolic 2000 panelon 01-08-2022 Anion gap [Moles/Vol] 13 mmol/L [facility] Calcium [Mass/Vol] 8.2 mg/dL Low 8.4 - 10. 4 mg/dL [facility] Chloride [Moles/Vol] 100 mmol/L 97 - 111 mmol/L [facility] CO2 [Moles/Vol] 27 mmol/L 21 - 30 mmol/L [facility] Creatinine [Mass/Vol] 0.60 mg/dL 0.50 - 1.10 mg/dL [facility] GFR/1.73 sq M.predicted MDRD (S/P/Bld) [Vol rate/Area] 87 mL/min/{1.73_m2} >=60 mL/min/1.73sqm [facility] Comment on above: 2020 CKD EPI Equatio [...] Inclusion of Race in Diagnosing Kidney Disease. [place] Journal of Kidney Diseases 202;79(2):268-88.e1. 2. N Engl J Med 1 Vol. 385 Issue 19 Pages 6141-5232 Glucose [Mass/Vol] 135 mg/dL High 80 - 116 mg/dL [facility] Interpretation and review of laboratory results Abnormal [facility] Potassium [Moles/Vol] 3.8 mmol/L 3.3 - 5.3 mmol/L [facility] Sodium [Moles/Vol] 136 mmol/L 135 - 148 mmol/L [facility] Urea nitrogen [Mass/Vol] 12 mg/dL 8 - 22 mg/dL [facility] CBC panel Auto (Bld)on 01-08 Erythrocyte distribution width (RBC) [Ratio] 13.7 % 11.5 - 14.5 % [facility] Hematocrit (Bld) [Volume fraction] 23.1 % Low 36.0 - 46.0 % [facility] Hemoglobin (Bld) [Mass/Vol] 8.1 g/dL Low 12.0 - 15.0 g/dL [facility] Interpretation and review of laboratory results Abnormal [facility] MCH (RBC) [Entitic mass] 30.0 pg 26.0 - 34.0 pg [facility] MCHC (RBC) [Mass/Vol] 35.1 g/dL 32.0 - 35.9 g/dL [facility] MCV (RBC) [Entitic vol] 86 fL 80 - [address] [facility] Platelet mean volume (Bld) [Entitic vol] 8.2 fL 7.5 - 11.[address] [facility] Platelets (Bld) [#/Vol] 191 10*3/uL 150 - 400 K/uL [facility] RBC (Bld) [#/Vol] 2.70 10*6/uL Low [facility] WBC (Bld) [#/Vol] 9.2 10*3/uL 4.5 - 11.5 K/uL [facility] COMPLETE BLOOD COUNTon 01-08 Erythrocyte distribution width (RBC) [Ratio] 13.7 % Normal 11.5-14.5 [facility] Comment on above: Performed By: #### C BC ####[facility] PATHOLOGY [id number] [place], [place], Hematocrit (Bld) [Volume fraction] 23.1 % Low 36.0-46.0 [facility] Comment on above: Performed By: #### C BC ####[facility] PATHOLOGY [id number] [place], [place], Hemoglobin (Bld) [Mass/Vol] 8.1 g/dL Low 12.0-15.0 [facility] Comment on above: Performed By: #### C BC ####[facility] PATHOLOGY [id number] [place], [place], MCH (RBC) [Entitic mass] 30.0 pg Normal 26.0-34.0 [facility] Comment on above: Performed By: #### C BC ####S PATHOLOGY [id number] [place], [place], MCHC (RBC) [Mass/Vol] 35.1 g/dL Normal 32.0-35.9 [facility] Comment on above: Performed By: #### C BC ####S PATHOLOGY [id number] [place], [place], MCV (RBC) [Entitic vol] 86 fL Normal 80-100 [facility] Comment on above: Performed By: #### C BC ####S PATHOLOGY [id number] [place], [place], Platelet mean volume (Bld) [Entitic vol] 8.2 fL Normal 7.5-11.2 [facility] Comment on above: Performed By: #### C BC ####S PATHOLOGY [id number] [place], [place], Platelets (Bld) [#/Vol] 191 10*3/uL Normal 150-400 [facility] Comment on above: Performed By: #### C BC ####[facility] PATHOLOGY [id number] [place], [place], RBC (Bld) [#/Vol] 2.70 10*6/uL Low 4.00-5.20 [facility] Comment on above: Performed By: #### C BC ####[facility] PATHOLOGY [id number] [place], [place], WBC (Bld) [#/Vol] 9.2 10*3/uL Normal 4.5-11.5 [facility] Comment on above: Performed By: #### C BC ####[facility] PATHOLOGY [id number] [place], [place], Care Plan Noteon 01-08-2022 Route Specialist Authentication Interface Message Text Problem: Routine Care: [...] will be met Outcome: Progressing Normal [facility] GLUCOSE, FINGERSTICK-IN OFFI CEon 01-08-2022 Glucose [Mass/Vol] 156 mg/dL High 80-116 [facility] Comment on above: Result Comment: Basilia toribio RN, APN, MD Performed By: #### 8 2948 #### NURSING GLUCOSE PROGRAM [address] [place] [address], [address] Glucose [Mass/Vol] 156 mg/dL High 80 - 116 mg/dL [facility] Comment on above: Notified MARIA FERNANDA ARTEAGA MD Interpretation and review of laboratory results Abnormal [facility] Glucose [Mass/Vol] 149 mg/dL High 80-116 [facility] Comment on above: Performed By: #### 8 2948 #### NURSING GLUCOSE PROGRAM [address] [place], [address] Glucose [Mass/Vol] 149 mg/dL High 80 - 116 mg/dL [facility] Interpretation and review of laboratory results Abnormal [facility] Glucose [Mass/Vol] 180 mg/dL High 80-116 [facility] Comment on above: Performed By: #### 8 2948 #### NURSING GLUCOSE PROGRAM [address] [place], [address] Glucose [Mass/Vol] 180 mg/dL High 80 - 116 mg/dL [facility] Interpretation and review of laboratory results Abnormal [facility] Glucose [Mass/Vol] 145 mg/dL High 80-116 [facility] Comment on above: Performed By: #### 8 2948 #### NURSING GLUCOSE PROGRAM [address] [place], [address] Glucose [Mass/Vol] 145 mg/dL High 80 - 116 mg/dL [facility] Interpretation and review of laboratory results Abnormal [facility] NOVEL CORONAVIRUS (COVID-19) on 01-08-2022 SARS-CoV-2 (COVID-19) RNA KIMBERLY+probe Ql (Unsp spec) Not detected Normal Not Detected [facility] Comment on above: Order Comment: Not D etected results are indicative of the absence of SARS-CoV-2 in the specimen submitted for testing. False negative results are possible based on the timing and quality of specimen submitted for testing.This test is intended for use only under Emergency Use Authorization (EUA). This test was developed, and its performance characteristics determined by [facility] which is certified under CLIA as qualified to perform high complexity clinical laboratory testing. Result Comment: This assay was performed using Tam[employer] GIOVANNI RTPCR technology. Performed By: #### 8 2948 #### NURSING [facility] PROGRAM [address] [place], [address] NOVEL CORONAVIRUS (COVID-19) Ordered By: Rishi Solis on 01-08-2022 SARS-CoV-2 (COVID-19) RNA KIMBERLY+probe Ql (Unsp spec) Not detected Not Detected [facility] Comment on above: This assay was perfo rmed using Tamica GIOVANNI RTPCR technology. Progress Noteson 01-08-2022 Route Specialist Authentication Interface Message Text SOCIAL WORK COVERAGE NOTE Plan: DC to [place] [facility]. Pre-cert pending. Updated therapy notes needed for pre-cert, PT/OT aware. SW to send updated notes to [facility] when available. 11:35a Addendum: Updated clinicals sent to [facility]. SNF requires Covid test prior to admission, MD aware and asked to place order. SW to contact pt's POA/son Terry Tim [phone] once DC confirmed and pre-cert has been obtained. Will continue to follow. Jjaa Morgan, SENIOR MARKET RESEARCH ANALYST, AIRPORT MAINTENANCE LABORER Normal [facility] [employer] Interface Message Text --------- GENERAL INFORMATION --------- REGULAR NURSING FLOOR - STAFF NOTE Patient seen and examined on 01/08/2022 Patient Name: Toribio Betts Admission Date: 01/01/2022 -------- INTERVAL HISTORY/EVENTS ------ Background: Toribio Betts???is a 86 year old???female???broug ht in by EMS as a transfer from [facility]???following fall from standing on 12/31. She fell and her leg twisted under her. She is on Eliquis. ??? Hospital Course: 12/31/2021: S/p fall, patient was admitted to [facility] 01/01/2022: No acute events overnight 01/02/2022: [...] cleared for discharge to SNF, accepted to [facility]. Cortes replaced for recurrent urinary retention. Okay [...] accurate (more content not included)... Normal [facility] SARS-CoV-2 (COVID-19) RNA NA A+probe Ql (Unsp spec)Ordered By: Rishi Solis on 01-08-2022 Interpretation and review of laboratory results Normal [facility] SARS-CoV-2 (COVID-19) Ab IA Ql Not Detected results are indicative of the absence of SARS-CoV-2 in the specimen submitted for testing. False negative results are possible based on the timing and quality of specimen submitted for testing. This test is intended for use only under Emergency Use Authorization (EUA). This test was developed, and its performance characteristics determined by [facility] which is certified under CLIA as qualified to perform high complexity clinical laboratory testing. [facility] BASIC METABOLIC PANELon 06-0 Anion gap [Moles/Vol] 12 mmol/L Normal 10-20 [facility] Comment on above: Performed By: #### 8 2948 #### NURSING GLUCOSE PROGRAM [address] [facility] [place], [address] Calcium [Mass/Vol] 8.0 mg/dL Low 8.4-10.4 [facility] Comment on above: Performed By: #### 8 2945 #### NURSING GLUCOSE PROGRAM [address] [facility] [place], [address] Chloride [Moles/Vol] 100 mmol/L Normal 97-111 [facility] Comment on above: Performed By: #### 8 2947 #### NURSING GLUCOSE PROGRAM [address] [place], [address] CO2 [Moles/Vol] 27 mmol/L Normal 21-30 [facility] Comment on above: Performed By: #### 8 2948 #### NURSING GLUCOSE PROGRAM [address] [place], [address] Creatinine [Mass/Vol] 0.56 mg/dL Normal 0.50-1.10 [facility] Comment on above: Performed By: #### 8 2948 #### NURSING GLUCOSE PROGRAM [address] [place], [address] ESTIMATED GFR (CKD-EPI) 88 mL/min/1.73sqm Normal >=60 [...] Inclusion of Race in Diagnosing Kidney Disease. [place] Journal of Kidney Diseases 202;79(2):268-88.e1. 2. N Engl J Med 1 Vol. 385 Issue 19 Pages 7470-2185 Performed By: #### 8 2948 #### NURSING GLUCOSE PROGRAM [address] [place], [address] Glucose [Mass/Vol] 134 mg/dL High 80-116 [facility] Comment on above: Performed By: #### 8 2948 #### NURSING GLUCOSE PROGRAM [address] [place], [address] Potassium [Moles/Vol] 3.9 mmol/L Normal 3.3-5.3 [facility] Comment on above: Performed By: #### 8 2948 #### NURSING GLUCOSE PROGRAM [address] [place], [address] Sodium [Moles/Vol] 135 mmol/L Normal 135-148 [facility] Comment on above: Performed By: #### 8 2948 #### NURSING GLUCOSE PROGRAM [address] [place], [address] Urea nitrogen [Mass/Vol] 13 mg/dL Normal 8-22 [facility] Comment on above: Performed By: #### 8 2948 #### NURSING GLUCOSE PROGRAM [address] [facility] [place], [address] Basic metabolic 2000 panelon 01-07-2022 Anion gap [Moles/Vol] 12 mmol/L [facility] Calcium [Mass/Vol] 8.0 mg/dL Low 8.4 - 10. 4 mg/dL [facility] Chloride [Moles/Vol] 100 mmol/L 97 - 111 mmol/L [facility] CO2 [Moles/Vol] 27 mmol/L 21 - 30 mmol/L [facility] Creatinine [Mass/Vol] 0.56 mg/dL 0.50 - 1.10 mg/dL [facility] GFR/1.73 sq M.predicted MDRD (S/P/Bld) [Vol rate/Area] 88 mL/min/{1.73_m2} >=60 mL/min/1.73sqm [facility] Comment on above: 2020 CKD EPI Equatio [...] Inclusion of Race in Diagnosing Kidney Disease. [place] Journal of Kidney Diseases 202;79(2):268-88.e1. 2. N Engl J Med 2020 Vol. 385 Issue 19 Pages 3977-4589 Glucose [Mass/Vol] 134 mg/dL High 80 - 116 mg/dL [facility] Interpretation and review of laboratory results Abnormal [facility] Potassium [Moles/Vol] 3.9 mmol/L 3.3 - 5.3 mmol/L [facility] Sodium [Moles/Vol] 135 mmol/L 135 - 148 mmol/L [facility] Urea nitrogen [Mass/Vol] 13 mg/dL 8 - 22 mg/dL [facility] CBC panel Auto (Bld)Ordered By: Jaqui Madison on 01-07-2022 Erythrocyte distribution width (RBC) [Ratio] 14.1 % 11.5 - 14.5 % [facility] Hematocrit (Bld) [Volume fraction] 23.5 % Low 36.0 - 46.0 % [facility] Hemoglobin (Bld) [Mass/Vol] 8.3 g/dL Low 12.0 - 15.0 g/dL [facility] Interpretation and review of laboratory results Abnormal [facility] MCH (RBC) [Entitic mass] 30.5 pg 26.0 - 34.[address] [facility] MCHC (RBC) [Mass/Vol] 35.4 g/dL 32.0 - 35.9 g/dL [facility] MCV (RBC) [Entitic vol] 86 fL 80 - [address] [facility] Platelet mean volume (Bld) [Entitic vol] 9.0 fL 7.5 - 11.[address] [facility] Platelets (Bld) [#/Vol] 114 10*3/uL Low 150 - 400 K/uL [facility] RBC (Bld) [#/Vol] 2.72 10*6/uL Low [facility] WBC (Bld) [#/Vol] 6.7 10*3/uL 4.5 - 11.5 K/uL [facility] COMPLETE BLOOD COUNTon 01-07 Erythrocyte distribution width (RBC) [Ratio] 14.1 % Normal 11.5-14.5 [facility] Comment on above: Performed By: #### 8 2948 #### NURSING GLUCOSE PROGRAM [address] [place] [address], [address] Hematocrit (Bld) [Volume fraction] 23.5 % Low 36.0-46.0 [facility] Comment on above: Performed By: #### 8 2948 #### NURSING GLUCOSE PROGRAM [address] [place], [address] Hemoglobin (Bld) [Mass/Vol] 8.3 g/dL Low 12.0-15.0 [facility] Comment on above: Performed By: #### 8 2948 #### NURSING GLUCOSE PROGRAM [address] [place], [address] MCH (RBC) [Entitic mass] 30.5 pg Normal 26.0-34.0 [facility] Comment on above: Performed By: #### 8 2948 #### NURSING GLUCOSE PROGRAM [address] [place], [address] MCHC (RBC) [Mass/Vol] 35.4 g/dL Normal 32.0-35.9 [facility] Comment on above: Performed By: #### 8 2948 #### NURSING GLUCOSE PROGRAM [address] [place], [address] MCV (RBC) [Entitic vol] 86 fL Normal 80-100 [facility] Comment on above: Performed By: #### 8 2948 #### NURSING GLUCOSE PROGRAM [address] [place], [address] Platelet mean volume (Bld) [Entitic vol] 9.0 fL Normal 7.5-11.2 [facility] Comment on above: Performed By: #### 8 2948 #### NURSING GLUCOSE PROGRAM [address] [place], [address] Platelets (Bld) [#/Vol] 114 10*3/uL Low 150-400 [facility] Comment on above: Performed By: #### 8 2948 #### NURSING GLUCOSE PROGRAM [address] [place], [address] RBC (Bld) [#/Vol] 2.72 10*6/uL Low 4.00-5.20 [facility] Comment on above: Performed By: #### 8 2948 #### NURSING GLUCOSE PROGRAM [address] [place], [address] WBC (Bld) [#/Vol] 6.7 10*3/uL Normal 4.5-11.5 [facility] Comment on above: Performed By: #### 8 2948 #### NURSING GLUCOSE PROGRAM [address] [place], [address] Care Plan Noteon 01-07-2022 Route Specialist Authentication Interface Message Text Problem: Routine Care: [...] will be met Outcome: Progressing Normal [facility] Consultson 01-07-2022 Route Specialist Authentication Interface Message Text Diet Registered Route Associate Nutrition Screening Reason for visit: LOS 5 [...] Will continue to follow, Dulce Leahy, Diet Registered Route Associate Pager [phone] Normal [facility] GLUCOSE, FINGERSTICK-IN OFFI CEon 01-07-2022 Glucose [Mass/Vol] 175 mg/dL High 80-116 [facility] Comment on above: Performed By: #### 8 2948 #### NURSING GLUCOSE PROGRAM [address] [place], [address] Glucose [Mass/Vol] 175 mg/dL High 80 - 116 mg/dL [facility] Interpretation and review of laboratory results [facility] Glucose [Mass/Vol] 148 mg/dL High 80-116 [facility] Comment on above: Performed By: #### 8 2948 #### NURSING GLUCOSE PROGRAM [address] [place], [address] Glucose [Mass/Vol] 148 mg/dL High 80 - 116 mg/dL [facility] Interpretation and review of laboratory results Abnormal [facility] Glucose [Mass/Vol] 162 mg/dL High 80-116 [facility] Comment on above: Performed By: #### 8 2948 #### NURSING GLUCOSE PROGRAM [address] [place], [address] Glucose [Mass/Vol] 162 mg/dL High 80 - 116 mg/dL [facility] Interpretation and review of laboratory results Abnormal [facility] Glucose [Mass/Vol] 135 mg/dL High 80-116 [facility] Comment on above: Performed By: #### 8 2948 #### NURSING GLUCOSE PROGRAM [address] [place], [address] Glucose [Mass/Vol] 135 mg/dL High 80 - 116 mg/dL [facility] Interpretation and review of laboratory results Abnormal [facility] Laboratory - Blood bankon Major crossmatch [Interp] Compatible (E) [facility] No Panel Informationon 01-07 Blood Product Code [id number] [facility] ealt Blood Product Description Red Blood Cells [facility] Blood Product Unit Type [id number] [facility] Comment on above: A Pos Status Transfused [facility] Progress Noteson 01-07-2022 Route Specialist Authentication Interface Message Text 01/07/22 0750 01/07/22 [...] Disoriented to person;Disoriented to place;Disoriented to time;Confused [place] Coma Scale (Adult) Eye Opening 4 3 [...] neurological status. No new orders. Normal [facility] [employer] Route Specialist [employer] Interface Message Text Covering SW Note: SW continuing to follow for DC to SNF. Pt accepted to [facility] [place]. SW sent updated clinicals to admissions and asked for pre-cert to be started. SW attempted to update pt's son, Terry. No answer and VM. SW will continue to follow. Rebeca Mendoza [facility] Care Coordination Department Normal The [employer] Interface Message Text Attestation signed by Diana [...] Trauma / Emergency general surgery My pager: [phone] Trauma resident: [phone] ACS resident: -[phone] (admitted) / -[phone] (new pts) ICU resident: -[phone] (ticu) / -[phone] (sicu) GENERAL INFORMATION --------- TRAUMA STAFF NOTE Patient Name: Toribio Betts Patient seen and examined on 01/07/2022 -------- INTERVAL HISTORY/EVENTS ------ Background: Toribio Betts???is a 86 year old???female???ariadna ht in by EMS as a transfer from [facility]???following fall from standing on 12/31. She fell and her leg twisted under her. She is on Eliquis. ??? Hospital Course: 12/31/2021: S/p fall, patient was admitted to [facility] 01/01/2022: No acute events overnight 01/02/2022: [...] and concerns related to the patient. (Pager: [phone]) Plan discussed with Dr. Marsh. Washington Neely MD General Surgery Trauma Normal [facility] RED BLOOD CELL UNIT STATUSon 01-07-2022 Blood product unit Nom (BPU) [ID] [id number] [employer] Blood product unit Nom (BPU) [ID] [id number] [facility] XR CHEST 1 VIEW AP OR PAon [...] cardiopulmonary abnormality identified. MACRO: None Normal [facility] EXAMINATION: XR CHEST 1 VIEW AP [...] No acute cardiopulmonary abnormality identified. MACRO: None [facility] Study observation (narrative) [facility] XR CHEST 1 VIEW AP OR PAOrde red By: Avani Davis on 01-07-2022 [facility] Work Phone: BASIC METABOLIC PANELon Anion gap [Moles/Vol] 12 mmol/L Normal 10-20 [facility] Comment on above: Performed By: #### A KHRIS #### [facility] [address] [place] [address], Calcium [Mass/Vol] 7.8 mg/dL Low 8.4-10.4 [facility] Comment on above: Performed By: #### A KHRIS #### S PATHOLOGY LABORATORY [address] [place] [address], Chloride [Moles/Vol] 101 mmol/L Normal 97-111 [facility] Comment on above: Performed By: #### A KHRIS #### S PATHOLOGY LABORATORY [address] [place] [address], CO2 [Moles/Vol] 28 mmol/L Normal 21-30 [facility] Comment on above: Performed By: #### A KHRIS #### S PATHOLOGY LABORATORY [address] [place] [address], Creatinine [Mass/Vol] 0.69 mg/dL Normal 0.50-1.10 [facility] Comment on above: Performed By: #### A KHRIS #### S PATHOLOGY LABORATORY [address] [place] [address], ESTIMATED GFR (CKD-EPI) 84 mL/min/1.73sqm Normal >=60 [facility] Comment on above: Result Comment: 2020 [...] Inclusion of Race in Diagnosing Kidney Disease. [place] Journal of Kidney Diseases 2021;79(2):268-88.e1. 2. N Engl J Med 1 Vol. 385 Issue 19 Pages 5086-0114 Performed By: #### A KHRIS #### S PATHOLOGY LABORATORY [address] [place] [address], Glucose [Mass/Vol] 129 mg/dL High 80-116 The [facility] Comment on above: Performed By: #### A KHRIS #### [facility] [address] [place] [address], Potassium [Moles/Vol] 3.5 mmol/L Normal 3.3-5.3 The [facility] Comment on above: Performed By: #### A KHRIS #### [facility] [address] [place] [address], Sodium [Moles/Vol] 137 mmol/L Normal 135-148 The [employer] [facility] Comment on above: Performed By: #### A KHRIS #### S PATHOLOGY LABORATORY [address] [place] [address], Urea nitrogen [Mass/Vol] 18 mg/dL Normal 8-22 The [facility] Comment on above: Performed By: #### A KHRIS #### S PATHOLOGY LABORATORY [address] [place] [address], Basic metabolic 2000 panelon 01-06-2022 Anion gap [Moles/Vol] 12 mmol/L [facility] Calcium [Mass/Vol] 7.8 mg/dL Low 8.4 - 10. 4 mg/dL [facility] Chloride [Moles/Vol] 101 mmol/L 97 - 111 mmol/L [facility] CO2 [Moles/Vol] 28 mmol/L 21 - 30 mmol/L [facility] Creatinine [Mass/Vol] 0.69 mg/dL 0.50 - 1.10 mg/dL [facility] GFR/1.73 sq M.predicted MDRD (S/P/Bld) [Vol rate/Area] 84 mL/min/{1.73_m2} >=60 mL/min/1.73sqm [facility] Comment on above: 2020 CKD EPI Equatio [...] Inclusion of Race in Diagnosing Kidney Disease. [place] Journal of Kidney Diseases 2021;79(2):268-88.e1. 2. N Engl J Med 2020 Vol. 385 Issue 19 Pages 9310-6659 Glucose [Mass/Vol] 129 mg/dL High 80 - 116 mg/dL [facility] Interpretation and review of laboratory results Abnormal [facility] Potassium [Moles/Vol] 3.5 mmol/L 3.3 - 5.3 mmol/L [facility] Sodium [Moles/Vol] 137 mmol/L 135 - 148 mmol/L [facility] Urea nitrogen [Mass/Vol] 18 mg/dL 8 - 22 mg/dL [facility] CBC panel Auto (Bld)on 01-06 Erythrocyte distribution width (RBC) [Ratio] 13.9 % 11.5 - 14.5 % [facility] Hematocrit (Bld) [Volume fraction] 24.8 % Low 36.0 - 46.0 % [facility] Hemoglobin (Bld) [Mass/Vol] 8.7 g/dL Low 12.0 - 15.0 g/dL [facility] Interpretation and review of laboratory results [...] 82 10*3/uL Low 150 - 400 K/uL [facility] RBC (Bld) [#/Vol] 2.91 10*6/uL Low [facility] WBC (Bld) [#/Vol] 9.1 10*3/uL 4.5 - 11.5 K/uL M [facility] COMPLETE BLOOD COUNTon 01-06 Erythrocyte distribution width (RBC) [Ratio] 13.9 % Normal 11.5-14.5 [facility] Comment on above: Performed By: #### C BC ####[facility] [id number] [place] [address], Hematocrit (Bld) [Volume fraction] 24.8 % Low 36.0-46.0 [facility] Comment on above: Performed By: #### C BC ####[facility] [id number] [place] [address], Hemoglobin (Bld) [Mass/Vol] 8.7 g/dL Low 12.0-15.0 [facility] Comment on above: Performed By: #### C BC ####[facility] [id number] [place] [address], MCH (RBC) [Entitic mass] 30.0 pg Normal 26.0-34.0 [facility] Comment on above: Performed By: #### C BC ####[facility] [id number] [place] [address], MCHC (RBC) [Mass/Vol] 35.2 g/dL Normal 32.0-35.9 [facility] Comment on above: Performed By: #### C BC ####[facility] [id number] [place] [address], MCV (RBC) [Entitic vol] 85 fL Normal 80-100 [facility] Comment on above: Performed By: #### C BC ####[facility] [id number] [place], [place], Platelet mean volume (Bld) [Entitic vol] 9.6 fL Normal 7.5-11.2 [facility] Comment on above: Performed By: #### C BC ####[facility] [id number] [place], [place], Platelets (Bld) [#/Vol] 82 10*3/uL Low 150-400 [facility] Comment on above: Performed By: #### C BC ####[facility] [id number] [place], [place], RBC (Bld) [#/Vol] 2.91 10*6/uL Low 4.00-5.20 The [employer] [facility] Comment on above: Performed By: #### C BC ####[facility] [id number] [place], [place], WBC (Bld) [#/Vol] 9.1 10*3/uL Normal 4.5-11.5 [facility] Comment on above: Performed By: #### C BC ####[facility] [id number] [place], [place], Care Plan Noteon 01-06-2022 Route Specialist Authentication Interface Message Text Problem: Routine Care: [...] will be met Outcome: Progressing Normal [facility] GLUCOSE, FINGERSTICK-IN OFFI CEon 01-06-2022 Glucose [Mass/Vol] 154 mg/dL High 80-116 [facility] Comment on above: Result Comment: Basilia toribio RN, APN, MD Performed By: #### 8 2948 #### NURSING GLUCOSE PROGRAM [address] [place], [address] Glucose [Mass/Vol] 154 mg/dL High 80 - 116 mg/dL [facility] Comment on above: Notified MARIA FERNANDA ARTEAGA MD Interpretation and review of laboratory results Abnormal [facility] Glucose [Mass/Vol] 163 mg/dL High 80-116 [facility] Comment on above: Performed By: #### 8 2948 ####NURSING GLUCOSE [id number] [place], [address] Glucose [Mass/Vol] 163 mg/dL High 80 - 116 mg/dL [facility] Interpretation and review of laboratory results Abnormal [facility] Glucose [Mass/Vol] 198 mg/dL High 80-116 [facility] Comment on above: Performed By: #### 8 2948 #### NURSING GLUCOSE PROGRAM [address] [place], [address] Glucose [Mass/Vol] 198 mg/dL High 80 - 116 mg/dL [facility] Interpretation and review of laboratory results Abnormal [facility] Glucose [Mass/Vol] 126 mg/dL High 80-116 [facility] Comment on above: Performed By: #### 8 2948 #### NURSING GLUCOSE PROGRAM [address] [place], [address] Glucose [Mass/Vol] 126 mg/dL High 80 - 116 mg/dL [facility] Interpretation and review of laboratory results Abnormal [facility] MAGNESIUMon 01-06-2022 Interpretation and review of laboratory results Normal [facility] Magnesium [Mass/Vol] 2.4 mg/dL 1.6 - 2.8 mg/dL [facility] Magnesium [Mass/Vol] 2.4 mg/dL Normal 1.6-2.8 [facility] Comment on above: Performed By: #### A KHRIS #### [facility] [address] [place], [address] Progress Noteson 01-06-2022 Route Specialist Authentication Interface Message Text GENERAL INFORMATION --------- TRAUMA STAFF NOTE Patient Name: Toribio Betts Patient seen and examined on 01/06/2022 -------- INTERVAL HISTORY/EVENTS ------ Background: Toribio Betts is a 86 year old female brought in by EMS as a transfer from [facility] following fall from standing on 12/31. She fell and her leg twisted under her. She is on Eliquis. Hospital Course: 12/31/2021: S/p fall, patient was admitted to [facility] 01/01/2022: No acute events overnight 01/02/2022: [...] indicated Dispo: - Likely to SNF at [facility] Follow up: - Ortho (Dr. Sher) 2 weeks -follow up with pcp as well No need for f/u with us unless needed. Please contact 24/02 with questions and concerns related to the patient. (Pager: [phone]) Plan discussed with Dr. Bernal. Washington Neely [...] Trauma Attending: Silviano Bernal MD Normal [facility] Route Specialist Authentication Interface Message Text 0300: Patient's R leg dressing has heavy shadowing and hgb decreased from 9.9 to 8.7. Patient VS are WNL and neurologically is at baseline. Chucky MAYERS updated, will continue to monitor. Normal [facility] BASIC METABOLIC PANELon 06-0 -2021 Anion gap [Moles/Vol] 13 mmol/L Normal 10-20 [facility] Comment on above: Performed By: #### A KHRIS #### [facility] [address] [place], [place], Calcium [Mass/Vol] 7.8 mg/dL Low 8.4-10.4 [facility] Comment on above: Performed By: #### A KHRIS #### [facility] [address] [place], [address] Chloride [Moles/Vol] 101 mmol/L Normal 97-111 [facility] Comment on above: Performed By: #### Vianney PINEDO #### S PATHOLOGY LABORATORY [address] [place], [place], CO2 [Moles/Vol] 24 mmol/L Normal 21-30 The [employer] [facility] Comment on above: Performed By: #### A KHRIS #### S PATHOLOGY LABORATORY [address] [place], [place], Creatinine [Mass/Vol] 0.75 mg/dL Normal 0.50-1.10 [facility] Comment on above: Performed By: #### Vianney PINEDO #### [facility] [address] [place], [place], ESTIMATED GFR (CKD-EPI) 77 mL/min/1.73sqm Normal >=60 [facility] Comment on above: Result Comment: [...] Inclusion of Race in Diagnosing Kidney Disease. [place] Journal of Kidney Diseases 2021;79(2):268-88.e1. 2. N Engl J Med 1 Vol. 385 Issue 19 Pages [phone] Performed By: #### Vianney PINEDO #### S PATHOLOGY LABORATORY [address] [place], [place], Glucose [Mass/Vol] 137 mg/dL High 80-116 [facility] Comment on above: Performed By: #### Vianney PNIEDO #### [facility] [address] [place], [place], Potassium [Moles/Vol] 3.8 mmol/L Normal 3.3-5.3 The [employer] [facility] Comment on above: Performed By: #### A KHRIS #### S PATHOLOGY LABORATORY [address] [place], [place], Sodium [Moles/Vol] 134 mmol/L Low 135-148 [facility] Comment on above: Performed By: #### Vianney PINEDO #### [facility] [address] [place], [address] Urea nitrogen [Mass/Vol] 24 mg/dL High 8-22 [facility] Comment on above: Performed By: #### A KHRIS #### S PATHOLOGY LABORATORY [address] [place], [address] Anion gap [Moles/Vol] 12 mmol/L Normal 10-20 [facility] Comment on above: Performed By: #### 8 2948 #### NURSING GLUCOSE PROGRAM [address] [place], [address] Calcium [Mass/Vol] 7.9 mg/dL Low 8.4-10.4 [facility] Comment on above: Performed By: #### 8 2948 #### NURSING GLUCOSE PROGRAM [address] [place] [address], [address] Chloride [Moles/Vol] 98 mmol/L Normal 97-111 [facility] Comment on above: Performed By: #### 8 2948 #### NURSING GLUCOSE PROGRAM [address] [place] [address], [address] CO2 [Moles/Vol] 25 mmol/L Normal 21-30 [facility] Comment on above: Performed By: #### 8 2948 #### NURSING GLUCOSE PROGRAM [address] [place] [address], [address] Creatinine [Mass/Vol] 0.96 mg/dL Normal 0.50-1.10 [facility] Comment on above: Performed By: #### 8 2948 #### NURSING GLUCOSE PROGRAM [address] [place] [address], [address] ESTIMATED GFR (CKD-EPI) 57 mL/min/1.73sqm Low >=60 [...] Inclusion of Race in Diagnosing Kidney Disease. [place] Journal of Kidney Diseases 202;79(2):268-88.e1. 2. N Engl J Med 1 Vol. 385 Issue 19 Pages 5893-9783 Performed By: #### 8 2948 #### NURSING GLUCOSE PROGRAM [address] [place], [address] Glucose [Mass/Vol] 154 mg/dL High 80-116 [facility] Comment on above: Performed By: #### 8 2948 #### NURSING GLUCOSE PROGRAM [address] [place], [address] Potassium [Moles/Vol] 3.7 mmol/L Normal 3.3-5.3 [facility] Comment on above: Performed By: #### 8 2948 #### NURSING GLUCOSE PROGRAM [address] [place], [address] Sodium [Moles/Vol] 131 mmol/L Low 135-148 [facility] Comment on above: Performed By: #### 8 2948 #### NURSING GLUCOSE PROGRAM [address] [place], [address] Urea nitrogen [Mass/Vol] 30 mg/dL High 8-22 [facility] Comment on above: Performed By: #### 8 2948 #### NURSING GLUCOSE PROGRAM [address] [place], [address] Basic metabolic 2000 panelon 01-05-2022 Anion gap [Moles/Vol] 13 mmol/L [facility] Calcium [Mass/Vol] 7.8 mg/dL Low 8.4 - [...] Inclusion of Race in Diagnosing Kidney Disease. [place] Journal of Kidney Diseases 2022;79(2):268-88.e1. 2. N Engl J Med 2020 Vol. 385 Issue 19 Pages 8044-7984 Glucose [Mass/Vol] 137 mg/dL High 80 - 116 mg/dL [facility] Interpretation and review of laboratory results Abnormal [facility] Potassium [Moles/Vol] 3.8 mmol/L 3.3 - 5.3 mmol/L [facility] Sodium [Moles/Vol] 134 mmol/L Low 135 - 148 mmol/L [facility] Urea nitrogen [Mass/Vol] 24 mg/dL High 8 - 22 mg/dL [facility] Anion gap [Moles/Vol] 12 mmol/L [facility] Calcium [Mass/Vol] 7.9 mg/dL Low 8.4 - [...] Inclusion of Race in Diagnosing Kidney Disease. [place] Journal of Kidney Diseases 2022;79(2):268-88.e1. 2. N Engl J Med 2020 Vol. 385 Issue 19 Pages 0250-4552 Glucose [Mass/Vol] 154 mg/dL High 80 - 116 mg/dL [facility] Interpretation and review of laboratory results Abnormal [facility] Potassium [Moles/Vol] 3.7 mmol/L 3.3 - 5.3 mmol/L [facility] Sodium [Moles/Vol] 131 mmol/L Low 135 - 148 mmol/L [facility] Urea nitrogen [Mass/Vol] 30 mg/dL High 8 - 22 mg/dL [facility] CBC panel Auto (Bld)Ordered By: Rina Cruz on 01-05-2022 Erythrocyte distribution width (RBC) [Ratio] 13.7 % 11.5 - 14.5 % [facility] Hematocrit (Bld) [Volume fraction] 28.2 % Low 36.0 - 46.0 % [facility] Hemoglobin (Bld) [Mass/Vol] 9.9 g/dL Low 12.0 - 15.0 g/dL [facility] Interpretation and review of laboratory results Abnormal [facility] MCH (RBC) [Entitic mass] 30.7 pg 26.0 - 34.0 pg [facility] MCHC (RBC) [Mass/Vol] 35.1 g/dL 32.0 - 35.9 g/dL [facility] MCV (RBC) [Entitic vol] 88 fL 80 - 100 fL [facility] Platelet mean volume (Bld) [Entitic vol] 10.1 fL 7.5 - 11.2 fL [facility] Platelets (Bld) [#/Vol] 73 10*3/uL Low 150 - 400 K/uL [facility] RBC (Bld) [#/Vol] 3.22 10*6/uL Low [facility] WBC (Bld) [#/Vol] 11.0 10*3/uL 4.5 - 11.5 K/uL [facility] CBC panel Auto (Bld)on 01-05 Erythrocyte distribution width (RBC) [Ratio] 14.1 % 11.5 - 14.5 % [facility] Hematocrit (Bld) [Volume fraction] 17.6 % Critically low 36.0 - 46.0 % [facility] Hemoglobin (Bld) [Mass/Vol] 6.2 g/dL Critically low 12.0 - 15.0 g/dL [facility] Interpretation and review of laboratory results Abnormal [facility] MCH (RBC) [Entitic mass] 30.0 pg 26.0 [...] Comment on above: Performed By: #### 8 5289 #### NURSING GLUCOSE PROGRAM [address] [place], [address] Hematocrit (Bld) [Volume fraction] 28.2 % Low 36.0-46.0 The [facility] Comment on above: Performed By: #### 8 2948 #### NURSING GLUCOSE PROGRAM [address] [place], [address] Hemoglobin (Bld) [Mass/Vol] 9.9 g/dL Low 12.0-15.0 [facility] Comment on above: Performed By: #### 8 2948 #### NURSING GLUCOSE PROGRAM [address] [place], [address] MCH (RBC) [Entitic mass] 30.7 pg Normal 26.0-34.0 [facility] Comment on above: Performed By: #### 8 2948 #### NURSING GLUCOSE PROGRAM [address] [place] [address], [address] MCHC (RBC) [Mass/Vol] 35.1 g/dL Normal 32.0-35.9 [facility] Comment on above: Performed By: #### 8 2948 #### NURSING GLUCOSE PROGRAM [address] [place] [address], [address] MCV (RBC) [Entitic vol] 88 fL Normal 80-100 The [facility] Comment on above: Performed By: #### 8 2948 #### NURSING GLUCOSE PROGRAM [address] [place], [address] Platelet mean volume (Bld) [Entitic vol] 10.1 fL Normal 7.5-11.2 [facility] Comment on above: Performed By: #### 8 2948 #### NURSING GLUCOSE PROGRAM [address] [place], [address] Platelets (Bld) [#/Vol] 73 10*3/uL Low 150-400 The [facility] Comment on above: Performed By: #### 8 2948 #### NURSING GLUCOSE PROGRAM [address] [place], [address] RBC (Bld) [#/Vol] 3.22 10*6/uL Low 4.00-5.20 [facility] Comment on above: Performed By: #### 8 2948 #### NURSING GLUCOSE PROGRAM [address] [place], [address] WBC (Bld) [#/Vol] 11.0 10*3/uL Normal 4.5-11.5 [facility] Comment on above: Performed By: #### 8 2948 #### NURSING GLUCOSE PROGRAM [address] [place], [place], Erythrocyte distribution width (RBC) [Ratio] 14.1 % Normal 11.5-14.5 [facility] Comment on above: Performed By: #### C BC #### [facility] [address] [place] [address], Hematocrit (Bld) [Volume fraction] 17.6 % Critically low 36.0-46.0 The [facility] Comment on above: Performed By: #### C BC #### [facility] [address] [place] [address], Hemoglobin (Bld) [Mass/Vol] 6.2 g/dL Critically low 12.0-15.0 The [facility] Comment on above: Performed By: #### C BC #### [facility] [address] [place] [address], MCH (RBC) [Entitic mass] 30.0 pg Normal 26.0-34.0 [facility] Comment on above: Performed By: #### C BC #### [facility] [address] [place] [address], MCHC (RBC) [Mass/Vol] 35.1 g/dL Normal 32.0-35.9 [facility] Comment on above: Performed By: #### C BC #### [facility] [address] [place] [address], MCV (RBC) [Entitic vol] 86 fL Normal 80-100 [facility] Comment on above: Performed By: #### C BC #### [facility] [address] [place] [address], Platelet mean volume (Bld) [Entitic vol] 9.9 fL Normal 7.5-11.2 [facility] Comment on above: Performed By: #### C BC #### [facility] [address] [place] [address], Platelets (Bld) [#/Vol] 77 10*3/uL Low 150-400 [facility] Comment on above: Performed By: #### C BC #### S PATHOLOGY LABORATORY [address] [place] [address], RBC (Bld) [#/Vol] 2.06 10*6/uL Low 4.00-5.20 [facility] Comment on above: Performed By: #### C BC #### [facility] [address] [place] [address], WBC (Bld) [#/Vol] 9.5 10*3/uL Normal 4.5-11.5 [facility] Comment on above: Performed By: #### C BC #### [facility] [address] [place] [address], Erythrocyte distribution width (RBC) [Ratio] 14.4 % Normal 11.5-14.5 [facility] Comment on above: Performed By: #### 8 2948 #### NURSING GLUCOSE PROGRAM [address] [place] [address], Hematocrit (Bld) [Volume fraction] 17.2 % Critically low 36.0-46.0 [facility] Comment on above: Performed By: #### 8 2948 #### NURSING GLUCOSE PROGRAM [address] [place] [address], Hemoglobin (Bld) [Mass/Vol] 6.0 g/dL Critically low 12.0-15.0 [facility] Comment on above: Performed By: #### 8 2948 #### NURSING GLUCOSE PROGRAM [address] [place] [address], [address] MCH (RBC) [Entitic mass] 29.8 pg Normal 26.0-34.0 [facility] Comment on above: Performed By: #### 8 2948 #### NURSING GLUCOSE PROGRAM [address] [place] [address], [address] MCHC (RBC) [Mass/Vol] 34.8 g/dL Normal 32.0-35.9 [facility] Comment on above: Performed By: #### 8 2948 #### NURSING GLUCOSE PROGRAM [address] [place] [address], [address] MCV (RBC) [Entitic vol] 86 fL Normal 80-100 [facility] Comment on above: Performed By: #### 8 2948 #### NURSING GLUCOSE PROGRAM [address] [place], [address] Platelet mean volume (Bld) [Entitic vol] 10.0 fL Normal 7.5-11.2 [facility] Comment on above: Performed By: #### 8 2948 #### NURSING GLUCOSE PROGRAM [address] [place], [address] Platelets (Bld) [#/Vol] 85 10*3/uL Low 150-400 [facility] Comment on above: Performed By: #### 8 2948 #### NURSING GLUCOSE PROGRAM [address] [place], [address] RBC (Bld) [#/Vol] 2.00 10*6/uL Low 4.00-5.20 [facility] Comment on above: Performed By: #### 8 2948 #### NURSING GLUCOSE PROGRAM [address] [place], [address] WBC (Bld) [#/Vol] 10.0 10*3/uL Normal 4.5-11.5 [facility] Comment on above: Performed By: #### 8 2948 #### NURSING GLUCOSE PROGRAM [address] [place], [address] Care Plan Noteon 01-05-2022 Route Specialist Authentication Interface Message Text Problem: Routine Care: [...] 8 2948 #### NURSING GLUCOSE PROGRAM [address] [place], [address] Glucose [Mass/Vol] 146 mg/dL High 80 - 116 mg/dL [facility] Comment on above: Notified MARIA FERNANDA ARTEAGA MD Interpretation and review of laboratory results Abnormal [facility] Glucose [Mass/Vol] 132 mg/dL High 80-116 [facility] Comment on above: Performed By: #### 8 2948 #### NURSING GLUCOSE PROGRAM [address] [place], [address] Glucose [Mass/Vol] 132 mg/dL High 80 - 116 mg/dL [facility] Interpretation and review of laboratory results Abnormal [facility] Glucose [Mass/Vol] 130 mg/dL High 80-116 [facility] Comment on above: Performed By: #### 8 2948 #### NURSING GLUCOSE PROGRAM [address] [place], [address] Glucose [Mass/Vol] 130 mg/dL High 80 - 116 mg/dL [facility] Interpretation and review of laboratory results Abnormal [facility] Glucose [Mass/Vol] 155 mg/dL High 80-116 [facility] Comment on above: Performed By: #### 8 2948 #### NURSING GLUCOSE PROGRAM [address] [place], [address] Glucose [Mass/Vol] 155 mg/dL High 80 - 116 mg/dL [facility] Interpretation and review of laboratory results Abnormal [facility] - Blood bankon ABO and Rh group Nom (Bld) Blood group A Rh(D) positive [facility] Comment on above: vision Progress Noteson 01-05-2022 Route Specialist Authentication Interface Message Text GENERAL INFORMATION --------- TRAUMA STAFF NOTE Patient Name: Toribio Betts Patient seen and examined on 01/05/2022 -------- INTERVAL HISTORY/EVENTS ------ Background: Toribio Betts is a 86 year old female brought in by EMS as a transfer from [facility] following fall from standing on 12/31. She fell and her leg twisted under her. She is on Eliquis. Hospital Course: 12/31/2021: S/p fall, patient was admitted to [facility] 01/01/2022: No acute events overnight 01/02/2022: [...] indicated Dispo: - Likely to SNF at [facility] Follow up: - Ortho (Dr. Sher) 2 weeks -follow up with pcp as well No need for f/u with us unless needed. Please contact 24/02 with questions and concerns related to the patient. (Pager: [phone]) Plan discussed with Dr. Bernal. Mila Weeks [...] Trauma Attending: Silviano Bernal MD Normal [facility] Route Specialist Authentication Interface Message Text 0230: Patient hgb low. First hgb 6.0, redraw 6.2. Trauma paged. Normal [facility] Route Specialist Authentication Interface Message Text 0129: This RN [...] redraw CBC at this time. Normal [facility] Route Specialist Authentication Interface Message Text 2330: Patient unable to void post cortes pull and was due to void at 2230. Patient bladder scanned for over 300 ml. Chucky MAYERS notified, straight cath ordered. Normal [facility] RED BLOOD CELL COMPONENTon 0 01-05-2022 BB ORDER ITEM Product status info to follow Normal [facility] Comment on above: Performed By: #### 8 2948 #### NURSING GLUCOSE PROGRAM [address] [place] [address], [address] BB Order Item Product status info to follow [facility] RED BLOOD CELL UNIT STATUSon 01-05-2022 BLOOD PRODUCT CODE [id number] Normal [facility] Comment on above: Performed By: #### C BC #### S PATHOLOGY LABORATORY [address] [place] [address], Performed By: #### 8 2948 #### NURSING GLUCOSE PROGRAM [address] [place] [address], [address] BLOOD PRODUCT DESCRIPTION Red Blood Cells Normal [facility] Comment on above: Performed By: #### C BC #### S PATHOLOGY LABORATORY [address] [place] [address], Performed By: #### 8 2948 #### NURSING GLUCOSE PROGRAM [address] [place] [address], [address] BLOOD PRODUCT STATUS Transfused Normal [facility] Comment on above: Performed By: #### C BC #### [facility] [address] [place] [address], Performed By: #### 8 2948 #### NURSING GLUCOSE PROGRAM [address] [place] [address], BLOOD PRODUCT UNIT INFO [id number] Normal [facility] Comment on above: Performed By: #### C BC #### S PATHOLOGY LABORATORY [address] [place] [address], BLOOD PRODUCT UNIT INFO [id number] Normal [facility] Comment on above: Performed By: #### 8 2948 #### NURSING GLUCOSE PROGRAM [address] [place] [address], BLOOD PRODUCT UNIT TYPE 6200 Normal [facility] Comment on above: Result Comment: A Po s Performed By: #### C BC #### S PATHOLOGY LABORATORY [address] [place] [address], Performed By: #### 8 2948 #### NURSING GLUCOSE PROGRAM [address] [place] [address], [address] CROSSMATCH INTERPRETATION Compatible (E) Normal [facility] Comment on above: Performed By: #### C BC #### S PATHOLOGY LABORATORY [address] [place] [address], Performed By: #### 8 2948 #### NURSING GLUCOSE PROGRAM [address] [place] [address], [address] TYPE AND SCREENon 01-05-2022 ABO and Rh group Nom (Bld) Blood group A Rh(D) positive Normal [facility] Comment on above: Result Comment: visi on Performed By: #### 8 2948 #### NURSING GLUCOSE PROGRAM [address] [place], [address] ABSC INT Negative Normal [facility] Comment on above: Result Comment: visi on Performed By: #### 8 2948 #### NURSING GLUCOSE PROGRAM [address] [place], [address] Blood group antibody screen Ql Negative [facility] Comment on above: vision [employer] BASIC METABOLIC PANELon 06-0 Anion gap [Moles/Vol] 14 mmol/L Normal 10-20 [facility] Comment on above: Performed By: #### 8 2948 #### NURSING GLUCOSE PROGRAM [address] [place], [address] Calcium [Mass/Vol] 8.1 mg/dL Low 8.4-10.4 [facility] Comment on above: Performed By: #### 8 2948 #### NURSING GLUCOSE PROGRAM [address] [place], [address] Chloride [Moles/Vol] 100 mmol/L Normal 97-111 [facility] Comment on above: Performed By: #### 8 2948 #### NURSING GLUCOSE PROGRAM [address] [place], [address] CO2 [Moles/Vol] 22 mmol/L Normal 21-30 [facility] Comment on above: Performed By: #### 8 2948 #### NURSING GLUCOSE PROGRAM [address] [place], [address] Creatinine [Mass/Vol] 1.09 mg/dL Normal 0.50-1.10 [facility] Comment on above: Performed By: #### 8 2948 #### NURSING GLUCOSE PROGRAM [address] [place], [address] ESTIMATED GFR (CKD-EPI) 49 mL/min/1.73sqm Low >=60 [...] Inclusion of Race in Diagnosing Kidney Disease. [place] Journal of Kidney Diseases 202;79(2):268-88.e1. 2. N Engl J Med 1 Vol. 385 Issue 19 Pages 3905-9405 Performed By: #### 8 2948 #### NURSING GLUCOSE PROGRAM [address] [place], [address] Glucose [Mass/Vol] 150 mg/dL High 80-116 [facility] Comment on above: Performed By: #### 8 2948 #### NURSING GLUCOSE PROGRAM [address] [place], [address] Potassium [Moles/Vol] 4.2 mmol/L Normal 3.3-5.3 [facility] Comment on above: Result Comment: Hemo lysis present Performed By: #### 8 2948 #### NURSING GLUCOSE PROGRAM [address] [place], [address] Sodium [Moles/Vol] 132 mmol/L Low 135-148 [facility] Comment on above: Performed By: #### 8 2948 #### NURSING GLUCOSE PROGRAM [address] [place], [address] Urea nitrogen [Mass/Vol] 28 mg/dL High 8-22 [facility] Comment on above: Performed By: #### 8 2948 #### NURSING GLUCOSE PROGRAM [address] [place], [address] Basic metabolic 2000 panelon 01-04-2022 Anion gap [Moles/Vol] 14 mmol/L [facility] Calcium [Mass/Vol] 8.1 mg/dL Low 8.4 - [...] Inclusion of Race in Diagnosing Kidney Disease. [place] Journal of Kidney Diseases 202;79(2):268-88.e1. 2. N Engl J Med 2020 Vol. 385 Issue 19 Pages 2180-3817 Glucose [Mass/Vol] 150 mg/dL High 80 - 116 mg/dL [facility] Interpretation and review of laboratory results [...] 8.6 g/dL Low 12.0 - 15.0 g/dL [facility] Interpretation and review of laboratory results [...] [facility] RBC (Bld) [#/Vol] 2.84 10*6/uL Low [facility] WBC (Bld) [#/Vol] 12.2 10*3/uL High 4.5 - 11.5 K/uL [facility] COMPLETE BLOOD COUNTon 01-04 Erythrocyte distribution width (RBC) [Ratio] 14.3 % Normal 11.5-14.5 [facility] Comment on above: Performed By: #### 8 2948 #### NURSING GLUCOSE PROGRAM [address] [place] [address], [address] Hematocrit (Bld) [Volume fraction] 24.7 % Low 36.0-46.0 [facility] Comment on above: Performed By: #### 8 2948 #### NURSING GLUCOSE PROGRAM [address] [place] [address], [address] Hemoglobin (Bld) [Mass/Vol] 8.6 g/dL Low 12.0-15.0 [facility] Comment on above: Performed By: #### 8 2948 #### NURSING GLUCOSE PROGRAM [address] [place] [address], [address] MCH (RBC) [Entitic mass] 30.2 pg Normal 26.0-34.0 [facility] Comment on above: Performed By: #### 8 2948 #### NURSING GLUCOSE PROGRAM [address] [place] [address], [address] MCHC (RBC) [Mass/Vol] 34.7 g/dL Normal 32.0-35.9 [facility] Comment on above: Performed By: #### 8 2948 #### NURSING GLUCOSE PROGRAM [address] [place] [address], [address] MCV (RBC) [Entitic vol] 87 fL Normal 80-100 [facility] Comment on above: Performed By: #### 8 2948 #### NURSING GLUCOSE PROGRAM [address] [place], [address] Platelet mean volume (Bld) [Entitic vol] 9.8 fL Normal 7.5-11.2 [facility] Comment on above: Performed By: #### 8 2948 #### NURSING GLUCOSE PROGRAM [address] [place] [address], [address] Platelets (Bld) [#/Vol] 76 10*3/uL Low 150-400 [facility] Comment on above: Performed By: #### 8 2948 #### NURSING GLUCOSE PROGRAM [address] [place], [address] RBC (Bld) [#/Vol] 2.84 10*6/uL Low 4.00-5.20 [facility] Comment on above: Performed By: #### 8 2948 #### NURSING GLUCOSE PROGRAM [address] [place], [address] WBC (Bld) [#/Vol] 12.2 10*3/uL High 4.5-11.5 [facility] Comment on above: Performed By: #### 8 2948 #### NURSING GLUCOSE PROGRAM [address] [place], [address] Care Plan Noteon 01-04-2022 Route Specialist Authentication Interface Message Text Problem: Routine Care: [...] will be met Outcome: Progressing Normal [facility] EKG 12 LEAD - PERFORMon 06-0 Diagnosis Sinus rhythm with occasional Premature ventricular complexes Nonspecific ST and T wave abnormality Abnormal ECG When compared with ECG of 01-JAN-2022 00:52, No significant change was found Confirmed by VENUS BAUTISTA ([id number]) on 01/04/2022 7:16:58 AM [facility] P wave Atrium by EKG 80 BPM [facility] P wave axis 86 degrees [facility] P-R Interval 202 ms [facility] Q-T interval 394 ms [facility] Q-T interval corrected 454 ms [facility] [address] [facility] T [facility] axis [address] [facility], FINGERSTICK-IN OFFI CEon 01-04-2022 Glucose [Mass/Vol] 168 mg/dL High 80-116 [facility] Comment on above: Result Comment: Basilia toribio RN, APN, MD Performed By: #### 8 4072 #### NURSING GLUCOSE PROGRAM [address] [place] [address], [address] Glucose [Mass/Vol] 168 mg/dL High 80 - 116 mg/dL [facility] Comment on above: Notified MARIA FERNANDA ARTEAGA MD Interpretation and review of laboratory results Abnormal [facility] Glucose [Mass/Vol] 173 mg/dL High 80-116 [facility] Comment on above: Result Comment: Basilia toribio RN, APN, MD Performed By: #### 8 5217 #### NURSING GLUCOSE PROGRAM [address] [place] [address], [address] Glucose [Mass/Vol] 173 mg/dL High 80 - 116 mg/dL [facility] Comment on above: Notified MARIA FERNANDA ARTEAGA MD Interpretation and review of laboratory results Abnormal [facility] Glucose [Mass/Vol] 161 mg/dL High 80-116 [facility] Comment on above: Result Comment: Foll ow Protocol Performed By: #### 8 8287 #### NURSING GLUCOSE PROGRAM [address] [place] [address], [address] Glucose [Mass/Vol] 161 mg/dL High 80 - 116 mg/dL [facility] Comment on above: Follow Protocol Notified MARIA FERNANDA ARTEAGA MD Interpretation and review of laboratory results Abnormal [facility] Glucose [Mass/Vol] 155 mg/dL High 80-116 [facility] Comment on above: Performed By: #### 8 3481 #### NURSING GLUCOSE PROGRAM [address] [place] [address], [address] Glucose [Mass/Vol] 155 mg/dL High 80 - 116 mg/dL [facility] Interpretation and review of laboratory results Abnormal [facility] Glucose [Mass/Vol] 167 mg/dL High 80-116 [facility] Comment on above: Result Comment: Basilia toribio RN, APN, MD Performed By: #### 8 4961 #### NURSING GLUCOSE PROGRAM [address] [place] [address], [address] Progress Noteson 01-04-2022 Route Specialist Authentication Interface Message Text GENERAL INFORMATION --------- TRAUMA STAFF NOTE Patient Name: Toribio Betts Patient seen and examined on 01/04/2022 -------- INTERVAL HISTORY/EVENTS ------ Background: Toribio Betts???is a 86 year old???female???ariadna ht in by EMS as a transfer [facility]following fall from standing on 12/31. She fell and her leg twisted under her. She is on Eliquis. ??? Hospital Course: 12/31/2021: S/p fall, patient was admitted to [facility] 01/01/2022: No acute events overnight 01/02/2022: [...] ??? Dispo: - Likely to SNF at [facility] Follow up: - Ortho (Dr. Sher) 2 weeks -follow up with pcp as well No need for f/u with us unless needed. Please contact 24/02 with questions and concerns related to the patient. (Pager: [phone]) SCRIBE ATTESTATION 01/04/2022, 6:57 AM. This note [...] by MD Silviano Agee MD Normal [facility] BASIC METABOLIC PANELon 06-0 -2021 Anion gap [Moles/Vol] 14 mmol/L Normal 10-20 [facility] Comment on above: Performed By: #### C BC #### S PATHOLOGY LABORATORY [address] [place] [address], Calcium [Mass/Vol] 8.2 mg/dL Low 8.4-10.4 [facility] Comment on above: Performed By: #### C BC #### S PATHOLOGY LABORATORY [address] [place] [address], Chloride [Moles/Vol] 101 mmol/L Normal 97-111 [facility] Comment on above: Performed By: #### C BC #### S PATHOLOGY LABORATORY [address] [place] [address], CO2 [Moles/Vol] 22 mmol/L Normal 21-30 [facility] Comment on above: Performed By: #### C BC #### [facility] [address] [place] [address], Creatinine [Mass/Vol] 1.05 mg/dL Normal 0.50-1.10 [facility] Comment on above: Performed By: #### C BC #### S PATHOLOGY LABORATORY [address] [place] [address], ESTIMATED GFR (CKD-EPI) 51 mL/min/1.73sqm Low >=60 [facility] Comment on above: Result Comment: 2020 [...] Inclusion of Race in Diagnosing Kidney Disease. [place] Journal of Kidney Diseases 202;79(2):268-88.e1. 2. N Engl J Med 1 Vol. 385 Issue 19 Pages 8822-1499 Performed By: #### C BC #### S PATHOLOGY LABORATORY [address] [place] [address], Glucose [Mass/Vol] 138 mg/dL High 80-116 [facility] Comment on above: Performed By: #### C BC #### S PATHOLOGY LABORATORY [address] [place] [address], Potassium [Moles/Vol] 4.0 mmol/L Normal 3.3-5.3 [facility] Comment on above: Performed By: #### C BC #### S PATHOLOGY LABORATORY [address] [place] [address], Sodium [Moles/Vol] 133 mmol/L Low 135-148 [facility] Comment on above: Performed By: #### C BC #### S PATHOLOGY LABORATORY [address] [place] [address], Urea nitrogen [Mass/Vol] 20 mg/dL Normal 8-22 [facility] Comment on above: Performed By: #### C BC #### S PATHOLOGY LABORATORY [address] [place] [address], Basic metabolic 2000 panelon 01-03-2022 Anion gap [Moles/Vol] 14 mmol/L [facility] Calcium [Mass/Vol] 8.2 mg/dL Low 8.4 - 10. 4 mg/dL [facility] Chloride [Moles/Vol] 101 mmol/L 97 - 111 mmol/L [facility] CO2 [Moles/Vol] 22 mmol/L 21 - 30 mmol/L [facility] Creatinine [Mass/Vol] 1.05 mg/dL 0.50 - 1.10 [...] Inclusion of Race in Diagnosing Kidney Disease. [place] Journal of Kidney Diseases 202;79(2):268-88.e1. 2. N Engl J Med 2020 Vol. 385 Issue 19 Pages 6859-3615 Glucose [Mass/Vol] 138 mg/dL High 80 - 116 mg/dL [facility] Interpretation and review of laboratory results [...] 9.8 g/dL Low 12.0 - 15.0 g/dL [facility] Interpretation and review of laboratory results [...] vol] 89 fL 80 - [address] Platelet mean volume (Bld) [Entitic vol] 9.7 fL 7.5 - 11.[address] Platelets (Bld) [#/Vol] 108 10*3/uL Low 150 - 400 K/uL [facility] RBC (Bld) [#/Vol] 2.16 10*6/uL Low [facility] WBC (Bld) [#/Vol] 11.1 10*3/uL 4.5 - 11.5 K/uL [facility] COMPLETE BLOOD COUNTon 01-03 Erythrocyte distribution width (RBC) [Ratio] 14.2 % Normal 11.5-14.5 [facility] Comment on above: Performed By: #### A KHRIS #### [facility] [address] [place] [address], Hematocrit (Bld) [Volume fraction] 27.8 % Low 36.0-46.0 [facility] Comment on above: Performed By: #### A KHRIS #### [facility] [address] [place] [address], Hemoglobin (Bld) [Mass/Vol] 9.8 g/dL Low 12.0-15.0 [facility] Comment on above: Performed By: #### A KHRIS #### [facility] [address] [place] [address], MCH (RBC) [Entitic mass] 30.5 pg Normal 26.0-34.0 [facility] Comment on above: Performed By: #### A KHRIS #### [facility] [address] [place] [address], MCHC (RBC) [Mass/Vol] 35.3 g/dL Normal 32.0-35.9 [facility] Comment on above: Performed By: #### A KHRIS #### [facility] [address] [place] [address], MCV (RBC) [Entitic vol] 86 fL Normal 80-100 [facility] Comment on above: Performed By: #### A KHRIS #### [facility] [address] [place] [address], Platelet mean volume (Bld) [Entitic vol] 9.6 fL Normal 7.5-11.2 [facility] Comment on above: Performed By: #### A KHRIS #### [facility] [address] [place] [address], Platelets (Bld) [#/Vol] 87 10*3/uL Low 150-400 [facility] Comment on above: Performed By: #### A KHRIS #### [facility] [address] [place] [address], RBC (Bld) [#/Vol] 3.21 10*6/uL Low 4.00-5.20 [facility] Comment on above: Performed By: #### A KHRIS #### [facility] [address] [place] [address], WBC (Bld) [#/Vol] 11.0 10*3/uL Normal 4.5-11.5 [facility] Comment on above: Performed By: #### Vianney PINEDO #### [facility] [address] [place] [address], Erythrocyte distribution width (RBC) [Ratio] 13.4 % Normal 11.5-14.5 [facility] Comment on above: Performed By: #### 8 2948 #### NURSING GLUCOSE PROGRAM [address] [place] [address], Hematocrit (Bld) [Volume fraction] 19.6 % Critically low 36.0-46.0 [facility] Comment on above: Performed By: #### 8 2948 #### NURSING GLUCOSE PROGRAM [address] [place] [address], Hemoglobin (Bld) [Mass/Vol] 6.5 g/dL Critically low 12.0-15.0 [facility] Comment on above: Performed By: #### 8 2948 #### NURSING GLUCOSE PROGRAM [address] [place] [address], MCH (RBC) [Entitic mass] 30.0 pg Normal 26.0-34.0 [facility] Comment on above: Performed By: #### 8 2948 #### NURSING GLUCOSE PROGRAM [address] [place], [address] MCHC (RBC) [Mass/Vol] 33.4 g/dL Normal 32.0-35.9 [facility] Comment on above: Performed By: #### 8 2948 #### NURSING GLUCOSE PROGRAM [address] [place], [address] MCV (RBC) [Entitic vol] 90 fL Normal 80-100 [facility] Comment on above: Performed By: #### 8 2948 #### NURSING GLUCOSE PROGRAM [address] [place], [address] Platelet mean volume (Bld) [Entitic vol] 9.6 fL Normal 7.5-11.2 [facility] Comment on above: Performed By: #### 8 2948 #### NURSING GLUCOSE PROGRAM [address] [place], [address] Platelets (Bld) [#/Vol] 104 10*3/uL Low 150-400 [facility] Comment on above: Performed By: #### 8 2948 #### NURSING GLUCOSE PROGRAM [address] [place], [address] RBC (Bld) [#/Vol] 2.18 10*6/uL Low 4.00-5.20 [facility] Comment on above: Performed By: #### 8 2948 #### NURSING GLUCOSE PROGRAM [address] [place], [address] WBC (Bld) [#/Vol] 11.5 10*3/uL Normal 4.5-11.5 [facility] Comment on above: Performed By: #### 8 2948 #### NURSING GLUCOSE PROGRAM [address] [place], [address] Erythrocyte distribution width (RBC) [Ratio] 13.1 % Normal 11.5-14.5 [facility] Comment on above: Performed By: #### C BC ####[facility] [id number] [place], [place], Hematocrit (Bld) [Volume fraction] 19.3 % Critically low 36.0-46.0 [facility] Comment on above: Performed By: #### C BC ####[facility] [id number] [place], [place], Hemoglobin (Bld) [Mass/Vol] 6.7 g/dL Critically low 12.0-15.0 [facility] Comment on above: Performed By: #### C BC ####[facility] PATHOLOGY [id number] [place], [place], MCH (RBC) [Entitic mass] 31.2 pg Normal 26.0-34.0 [facility] Comment on above: Performed By: #### C BC ####[facility] PATHOLOGY [id number] [place] [address], MCHC (RBC) [Mass/Vol] 34.9 g/dL Normal 32.0-35.9 [facility] Comment on above: Performed By: #### C BC ####[facility] PATHOLOGY [id number] [place] [address], MCV (RBC) [Entitic vol] 89 fL Normal 80-100 [facility] Comment on above: Performed By: #### C BC ####[facility] PATHOLOGY [id number] [place] [address], Platelet mean volume (Bld) [Entitic vol] 9.7 fL Normal 7.5-11.2 [facility] Comment on above: Performed By: #### C BC ####[facility] PATHOLOGY [id number] [place] [address], Platelets (Bld) [#/Vol] 108 10*3/uL Low 150-400 [facility] Comment on above: Performed By: #### C BC ####[facility] PATHOLOGY [id number] [place] [address], RBC (Bld) [#/Vol] 2.16 10*6/uL Low 4.00-5.20 [facility] Comment on above: Performed By: #### C BC ####[facility] PATHOLOGY [id number] [place] [address], WBC (Bld) [#/Vol] 11.1 10*3/uL Normal 4.5-11.5 [facility] Comment on above: Performed By: #### C BC ####[facility] PATHOLOGY [id number] [place] [address], [id number] Care Plan Noteon 01-03-2022 Route Specialist Authentication Interface Message Text Problem: Routine Care: [...] System EMS Documentationon 01-04-20 22 EMS Documentation [id number] #[id number]:127 Normal [facility] GLUCOSE, FINGERSTICK-IN OFFI CEon 01-03-2022 Glucose [Mass/Vol] 167 mg/dL High 80 - 116 mg/dL [facility] Comment on above: Notified MARIA FERNANDA ARTEAGA MD Interpretation and review of laboratory results Abnormal [facility] Glucose [Mass/Vol] 189 mg/dL High 80-116 [facility] Comment on above: Performed By: #### 8 2948 #### NURSING GLUCOSE PROGRAM [address] [place], [address] Glucose [Mass/Vol] 189 mg/dL High 80 - 116 mg/dL [facility] Interpretation and review of laboratory results Abnormal [facility] Glucose [Mass/Vol] 189 mg/dL High 80-116 [facility] Comment on above: Performed By: #### 8 2948 #### NURSING GLUCOSE PROGRAM [address] [place], [address] Glucose [Mass/Vol] 189 mg/dL High 80 - 116 mg/dL [facility] Interpretation and review of laboratory results Abnormal [facility] Glucose [Mass/Vol] 157 mg/dL High 80-116 [facility] Comment on above: Performed By: #### A KHRIS #### S PATHOLOGY LABORATORY [address] [place], [place], Glucose [Mass/Vol] 157 mg/dL High 80 - 116 mg/dL [facility] Interpretation and review of laboratory results Abnormal [facility] Glucose [Mass/Vol] 141 mg/dL High 80-116 [facility] Comment on above: Performed By: #### C BC #### [facility] [address] [place], [place], MAGNESIUMon 01-03-2022 Magnesium [Mass/Vol] 1.7 mg/dL Normal 1.6-2.8 [facility] Comment on above: Performed By: #### C MICHAELA #### [facility] PATHOLOGY LABORATORY [address] [place], [place], Interpretation and review of laboratory results Normal [facility] Magnesium [Mass/Vol] 1.7 mg/dL 1.6 - 2.8 mg/dL [facility] No Panel Informationon 01-03 [facility] PHOSPHORUSon 01-03-2022 Phosphate [Mass/Vol] 3.8 mg/dL Normal 2.3-4.2 [facility] Comment on above: Performed By: #### C BC #### [facility] PATHOLOGY LABORATORY [address] [place], [place], Interpretation and review of laboratory results Normal [facility] Phosphate [Mass/Vol] 3.8 mg/dL 2.3 - 4.2 mg/dL [facility] Progress Noteson 01-03-2022 Route Specialist Authentication Interface Message Text SW aware of rand butter screen yield for pt has ADs, paper copy not with pt. SW met with pt at bedside, pt confirms having POA and LW. Per pt, POA is: sina Tim [phone] Pt/family educated to bring a copy of [...] from the medicare.gov compare site for SNF. [place] [facility] Choice was provided to the patient/patient agency service representative. For SNF: RN/MD to complete [employer]. Signature page placed on patient's chart for MD signature. Pt will require a pre-cert/LOC. Referral sent to [facility] per family request. SW will continue to follow. Radha Cox [facility] [phone] Normal The [facility] Interface Message Text 01/03/22 0950 01/03/22 0952 [...] obtained. Dr. Ta at bedside. Normal The [facility] Interface Message Text GENERAL INFORMATION --------- TRAUMA STAFF NOTE Patient Name: Toribio Betts Patient seen and examined on 01/03/2022 -------- INTERVAL HISTORY/EVENTS ------ Background: Toribio Betts???is a 86 year old???female???broug ht in by EMS as a transfer from [facility]???following fall from standing. She fell and her leg twisted under her. She is on Eliquis. ??? Hospital Course: 12/31/2021: S/p fall, patient was admitted to [facility] 01/01/2022: No acute events overnight 01/02/2022: [...] and concerns related to the patient. (Pager: [phone]) SCRIBE ATTESTATION 01/03/2022, 7:02 AM. This note [...] performed by Megan Ta MD. Normal The [facility] Authentication Interface Message Text Trauma resident consumer safety inspector notified of low urine output. Also notified that pt lost IV access during blood administration, attempting to get IV access at this time. Will continue to monitor. Normal The [facility] Authentication Interface Message Text Dr. Flores notified of critical Hemoglobin and Hematocrit values of 6.[address] Flores read back critical result. New orders received. 0340 - Dr. Flores notified of critical Hemoglobin and hematrocrit values of 6.[address] Flores read back critical result. New orders received. Normal [facility] RED BLOOD CELL COMPONENTon 0 01-03-2022 BB ORDER ITEM Product status info to follow Normal [facility] Comment on above: Performed By: #### 8 2948 #### NURSING GLUCOSE PROGRAM [address] [place] [address], [address] BB Order Item Product status info to follow [facility] RED BLOOD CELL UNIT STATUSon 01-03-2022 BLOOD PRODUCT CODE [id number] Normal [facility] Comment on above: Performed By: #### Vianney PINEDO #### S PATHOLOGY LABORATORY [address] [place] [address], Performed By: #### 8 2948 #### NURSING GLUCOSE PROGRAM [address] [place] [address], [address] BLOOD PRODUCT DESCRIPTION Red Blood Cells Normal [facility] Comment on above: Performed By: #### A KHRIS #### S PATHOLOGY LABORATORY [address] [place] [address], Performed By: #### 8 2948 #### NURSING GLUCOSE PROGRAM [address] [place] [address], [address] BLOOD PRODUCT STATUS Transfused Normal [facility] Comment on above: Performed By: #### Vianney PINEDO #### S PATHOLOGY LABORATORY [address] [place] [address], Performed By: #### 8 2948 #### NURSING GLUCOSE PROGRAM [address] [place] [address], [address] BLOOD PRODUCT UNIT INFO [id number] Normal [facility] Comment on above: Performed By: ###Cathy PINEDO #### S PATHOLOGY LABORATORY [address] [place] [address], BLOOD PRODUCT UNIT INFO [id number] Normal [facility] Comment on above: Performed By: #### 8 2948 #### NURSING GLUCOSE PROGRAM [address] [place] [address], [address] BLOOD PRODUCT UNIT TYPE 6200 Normal [facility] Comment on above: Result Comment: A Po s Performed By: #### A KHRIS #### S PATHOLOGY LABORATORY [address] [place] [address], Performed By: #### 8 2948 #### NURSING GLUCOSE PROGRAM [address] [place] [address], [address] CROSSMATCH INTERPRETATION Compatible (E) Normal [facility] Comment on above: Performed By: #### A KHRIS #### S PATHOLOGY LABORATORY [address] [place], [address] Performed By: #### 8 2948 #### NURSING GLUCOSE PROGRAM [address] [place], [address] TRANSFUSE RED CELLSon 2021 [facility] Anesthesia Attestationon Route Specialist Authentication Interface Message Text Anesthesia Attestation ATTESTATION OF INFORMED CONSENT FOR ANESTHESIA Anesthesia options were discussed with the patient and/or legal agency service representative. The risks, benefits and alternatives were reviewed. Questions regarding anesthesia were answered. Patient and/or legal agency service representative knows such anesthetics and procedures may be performed by Resident physicians, Certified Anesthesiologist Assistants, or Certified Nurse Anesthetists under the supervision of a physician. The patient /or the patient's legal agency service representative agree with the plan for anesthesia. Normal [facility] Anesthesia Postprocedure Gladis luationon 01-02-2022 Route Specialist Authentication Interface Message Text Anesthesia Postoperative Assessment: [...] ANESTHESIA COMPLICATIONS: No complications documented. Normal [facility] Anesthesia Preprocedure Eval uationon 01-02-2022 Route Specialist Authentication Interface Message Text ASA: 3 Past [...] the history and physical examination. Normal [facility] Anesthesia Transfer Of Careo n 01-02-2022 Route Specialist Authentication Interface Message Text Patient taken to [...] Davide Mcintosh DO CAA: Henrique Quijano CAA DRILL PRESSER: Erika Islas, SLOT FLOORMAN-DRILL PRESSER REDUCTION, OPEN, FEMUR, INTRAMEDULLARY JAC (Right ) [...] of the report was received. Erika Islas APRN-DRILL PRESSER Normal [facility] Blood Attestationon 01-03-20 Route Specialist Authentication Interface Message Text Blood Attestation ATTESTATION OF INFORMED CONSENT FOR BLOOD The transfusion of blood and/or blood components were discussed with the patient and/or legal agency service representative. The risks, benefits and alternatives were reviewed. Questions regarding blood transfusions were answered. The patient /or the patient's legal agency service representative agree with the plan for transfusion of blood and/or blood components. Normal [facility] Brief Operative Noteon 01-02 Route Specialist Authentication Interface Message Text Brief Operative Note MAIN OR 08 Toribio Betts 86 year old female Surgical Contact Serial Number: [id number] Preoperative Diagnosis: Other fracture of right femur, initial encounter for closed fracture (HCC) [S72.8X1A] Postoperative Diagnosis: * Other fracture of right femur, initial encounter for closed fracture (HCC) [S72.8X1A] Procedures: Surgical CPTs Procedures * OPEN TREATMENT, FEMORAL SHAFT FRACTURE, W/INSERTION, INTRAMEDULLARY IMPLANT, W/WO SCREW/CERCLAGE No data filed Surgeon(s): Surgeon(s): Eric Sher MD Staff: Scrub: Christine Matson Remelt Furnace Expediter Nurse: Heather Pedroza RN Clinical Quality Rn: Lety Clarke Parking Analyst: Joselito Patel MD; Salma Mae MD Anesthesia: General Anesthesiologist: Davide Mcintosh DO CAA: Henrique Quijano CAA DRILL PRESSER: Erika Islas APRN-CRNA Specimen(s): * No specimens [...] Patel MD 01/02/2022 11:51 AM Normal [facility] Care Plan Noteon 01-02-2022 Route Specialist Authentication Interface Message Text Problem: Routine Care: [...] Note: SNF pending medical clearance. Normal [facility] Consultson 01-02-2022 Route Specialist Authentication Interface Message Text PHYSICAL THERAPY Continue to follow this Patient who is currently in OR for Fixation of (R) Femoral Shaft Fx Will HOLD PT Eval at this time and follow up post-operatively. Report to follow. Cecelia Stiles, PT, MPT (B) [phone] Normal [facility] Route Specialist Authentication Interface Message Text Occupational Therapy Per [...] Performed By: #### 8 2948 ####NURSING GLUCOSE [id number] [facility] [place], [address] Glucose [Mass/Vol] 160 mg/dL High 80 - 116 mg/dL [facility] Interpretation and review of laboratory results Abnormal [facility] Glucose [Mass/Vol] 116 mg/dL Normal 80-116 [facility] Comment on above: Performed By: #### 8 2948 ####NURSING GLUCOSE [id number] [facility] [place], [address] Glucose [Mass/Vol] 116 mg/dL 80 - 116 mg/dL [facility] Interpretation and review of laboratory results Normal [facility] OP Noteon 01-02-2022 Route Specialist Authentication Interface Message Text Name: TORIBIO BETTS MR#: [id number] ENC#: [id number] Date of Procedure: 01/02/2022 ATTENDING SURGEON: Eric Sher MD FIRST SURGEON: Joselito Patel PREOPERATIVE DIAGNOSIS: Right proximal 3rd femur shaft fracture. POSTOPERATIVE DIAGNOSIS: Right proximal 3rd femur shaft fracture. PROCEDURE PERFORMED: IM nail of right femur fracture. CPT code 16443. ANESTHESIA: GETA. ESTIMATED BLOOD LOSS: 200 mL. [...] personnel confirmed the time-out. I used the Curlew table to pull some in-line traction, a [...] Dict: 01/02/2022 11:34:47 TRANS: 01/02/2022 14:21:14 JOB: [id number] DictJob#: [id number] Normal [facility] Progress Noteson 01-02-2022 Route Specialist Authentication Interface Message Text SW aware of rand butter screen yield for pt has ADs, paper copy not with pt. Pt to OR this date. SW will follow up as able. Radha Cox [facility] [phone] Normal The [facility] Route Specialist Authentication Interface Message Text GENERAL INFORMATION --------- [...] 12/31/2021: S/p fall, patient was admitted to [facility] 01/01/2022: No acute events overnight 24 [...] and concerns related to the patient. (Pager: [phone]) SCRIBE ATTESTATION 01/02/2022, 7:35 AM. This note [...] performed by Megan Ta MD. Normal [facility] ABO RH TYPEon 01-01-2022 ABO and Rh group Nom (Bld) Blood group A Rh(D) positive Normal [facility] Comment on above: Performed By: #### A KHRIS #### S PATHOLOGY LABORATORY [address] [place], [place], [facility] ABO/Rh History Checkon 01-01 ABO/Rh History Check Patient discharged prior Normal [facility] Comment on above: Performed By: #### 1 [id number], [id number], [id number] ####[facility] [id number] [place] [address] BASIC METABOLIC PANELon 12-04 Anion gap [Moles/Vol] 14 mmol/L Normal 10-20 [facility] Comment on above: Performed By: #### C BC #### S PATHOLOGY LABORATORY [address] [place] [address], Calcium [Mass/Vol] 8.8 mg/dL Normal 8.4-10.4 [facility] Comment on above: Performed By: #### C BC #### S PATHOLOGY LABORATORY [address] [place] [address], Chloride [Moles/Vol] 102 mmol/L Normal 97-111 [facility] Comment on above: Performed By: #### C BC #### S PATHOLOGY LABORATORY [address] [place] [address], CO2 [Moles/Vol] 26 mmol/L Normal 21-30 [facility] Comment on above: Performed By: #### C BC #### S PATHOLOGY LABORATORY [address] [place] [address], Creatinine [Mass/Vol] 0.67 mg/dL Normal 0.50-1.10 [facility] Comment on above: Performed By: #### C BC #### S PATHOLOGY LABORATORY [address] [place], [place], ESTIMATED GFR (CKD-EPI) 85 mL/min/1.73sqm Normal >=60 [facility] Comment on above: Result Comment: [...] Inclusion of Race in Diagnosing Kidney Disease. [place] Journal of Kidney Diseases 202;79(2):268-88.e1. 2. N Engl J Med 2020 Vol. 385 Issue 19 Pages 5721-1015 Performed By: #### C BC #### [facility] [address] [place] [address], Glucose [Mass/Vol] 160 mg/dL High 80-116 [facility] Comment on above: Performed By: #### C BC #### S PATHOLOGY LABORATORY [address] [place], [place], Potassium [Moles/Vol] 3.9 mmol/L Normal 3.3-5.3 [facility] Comment on above: Performed By: #### C BC #### S PATHOLOGY LABORATORY [address] [place] [address], Sodium [Moles/Vol] 138 mmol/L Normal 135-148 [facility] Comment on above: Performed By: #### C BC #### [facility] [address] [place], [place], Urea nitrogen [Mass/Vol] 13 mg/dL Normal 8-22 [facility] Comment on above: Performed By: #### C BC #### S PATHOLOGY LABORATORY [address] [place] [address], Basic metabolic 2000 panelon 01-01-2022 Anion gap [Moles/Vol] 14 mmol/L [facility] Calcium [Mass/Vol] 8.8 mg/dL 8.4 - 10. [...] patient's full clinical presentation. Reference: 1. Paulino hCo, Tyron M, Dasha MCHUGH, et al.. A Unifying Approach for GFR Estimation: Recommendations of the NKF-ASN Task Force on Reassessing the Inclusion of Race in Diagnosing Kidney Disease. [place] Journal of Kidney Diseases 202;79(2):268-88.e1. 2. N Engl J Med 2020 Vol. 385 Issue 19 Pages 5535-8397 Glucose [Mass/Vol] 160 mg/dL High 80 - 116 mg/dL [facility] Interpretation and review of laboratory results Abnormal [facility] Potassium [Moles/Vol] 3.9 mmol/L 3.3 - 5.3 mmol/L [facility] Sodium [Moles/Vol] 138 mmol/L 135 - 148 mmol/L [facility] Urea nitrogen [Mass/Vol] 13 mg/dL 8 - 22 mg/dL [facility] CBC panel Auto (Bld)on 01-01 Erythrocyte distribution width (RBC) [Ratio] 13.3 % 11.5 - 14.5 % [facility] Hematocrit (Bld) [Volume fraction] 32.5 % Low 36.0 - 46.0 % [facility] Hemoglobin (Bld) [Mass/Vol] 11.1 g/dL Low 12.0 - 15.0 g/dL [facility] Interpretation and review of laboratory results [...] 9.6 10*3/uL 4.5 - 11.5 K/uL M [facility] COMPLETE BLOOD COUNTon 01-01 Erythrocyte distribution width (RBC) [Ratio] 13.3 % Normal 11.5-14.5 [facility] Comment on above: Performed By: #### C BC ####[facility] PATHOLOGY [id number] [place], [place], Hematocrit (Bld) [Volume fraction] 32.5 % Low 36.0-46.0 [facility] Comment on above: Performed By: #### C BC ####[facility] PATHOLOGY [id number] [place], [place], Hemoglobin (Bld) [Mass/Vol] 11.1 g/dL Low 12.0-15.0 [facility] Comment on above: Performed By: #### C BC ####[facility] PATHOLOGY [id number] [place], [place], MCH (RBC) [Entitic mass] 30.8 pg Normal 26.0-34.0 [facility] Comment on above: Performed By: #### C BC ####[facility] PATHOLOGY [id number] [place], [place], MCHC (RBC) [Mass/Vol] 34.1 g/dL Normal 32.0-35.9 [facility] Comment on above: Performed By: #### C BC ####[facility] PATHOLOGY [id number] [place], [place], MCV (RBC) [Entitic vol] 91 fL Normal 80-100 [facility] Comment on above: Performed By: #### C BC ####[facility] PATHOLOGY [id number] [place], [place], Platelet mean volume (Bld) [Entitic vol] 9.5 fL Normal 7.5-11.2 [facility] Comment on above: Performed By: #### C BC ####[facility] PATHOLOGY [id number] [place], [place], Platelets (Bld) [#/Vol] 133 10*3/uL Low 150-400 [facility] Comment on above: Performed By: #### C BC ####S PATHOLOGY [id number] [place], [place], RBC (Bld) [#/Vol] 3.59 10*6/uL Low 4.00-5.20 [facility] Comment on above: Performed By: #### C BC ####[facility] [id number] [place], [place], WBC (Bld) [#/Vol] 9.6 10*3/uL Normal 4.5-11.5 [facility] Comment on above: Performed By: #### C BC ####[facility] PATHOLOGY [id number] [place], [place], CT Abdomen/Pelvis w/ Contras ton 01-01-2022 [...] 300 Contrast amount in ml's: 100 Normal [facility] CT Chest w/ Contraston 01-01 CT Chest [...] 300 Contrast amount in ml's: 100 Normal [facility] CT Head or Brain w/o Contras ton [...] MD Transcribed by: MADAY Technologist: JADYN Wahl [facility] CT Spine Cervical w/o Contra ston 01-01-2022 [...] MD Transcribed by: MADAY Technologist: JADYN Wahl [facility] Care Plan Noteon 01-01-2022 Route Specialist Authentication Interface Message Text Problem: Routine Care: [...] Progressing Note: Pending PT/OT eval. Normal [facility] Route Specialist Authentication Interface Message Text Problem: Routine Care: [...] will be met Outcome: Progressing Normal [facility] Consultson 01-01-2022 Route Specialist Authentication Interface Message Text Orthopaedic Surgery Consult [...] Oral, Daily 30 min before breakfast, Ron aBch MD * sertraline (ZOLOFT) tablet, 25 mg, [...] initial (more content not included)... Normal [facility] ED Clinical Summaryon 2021 ED Clinical Summary [address] [address] ED Clinical Summary Person Information Name: TORIBIO BETTS/[facility] Age: 86 Years : 1935 Sex: Female Language: [place] Islander PCP: Janna MANN MD Marital Status: Visit [...] 01/01/2022 00:10:36 01/01/2022 00:10:36 01/01/2022 00:10:36 ADDRESS: [address] [place] [id number] PHYS DOC NOTES: MEDICAL INFORMATION: Prescriptions Given: [...] INFORMATION: Instructions: Follow up: DIAGNOSIS: Normal [facility] ED Note-Physicianon 01-02-20 ED Note-Physician Basic Information [...] and it was decided that transfer to [facility] was the best course of action at [...] Discharge Condition Guarded Discharge Disposition Transfer - [facility] Discharge Prescription List Prescriptions No active prescription medications Follow-up No qualifying data available Attestation This visit was performed by both a physician and an APC. I performed all aspects of the MDM as documented. This visit was transcribed using voice recognition software. Every effort was made to ensure accuracy, however inadvertent computerized corporate attorney mistakes may be present. Problem List/Past Medical History Ongoing Age-related macular degeneration, wet, both eyes Bradycardia CAD (coronary artery disease) Chronic constipation Chr (more content not included)... Normal [facility] Comment on above: Result Comment: Elec tronically Signed By: Bushra Mary\.br\Date and Time Signed: 01/01/22 02:19 EDT\.br\Electronically Co-Signed By: Janna Sauceda DO\.br\Date and Time Co-Signed: 01/01/22 07:44 EDT ED Patient Education Noteon 01-01-2022 ED Patient Education Note Normal [facility] ED Patient Summaryon 022 ED Patient Summary [place] [address] Patient Discharge Instructions Person Information Name: TORIBIO BETTS Age: 86 Years Arrival Date: 12/31/2021 18:28:56 Discharge Diagnosis: Primary Care Physician: Janna MANN MD Provider Information Primary Provider: Janna Sauceda DO Advanced Flag Signalman:Bushra Mary The exam and treatment you received in the Emergency Department were for an urgent problem and are not intended as complete care. It is important that you follow up with a doctor, nurse practitioner, or physician?s cafe assistant for ongoing care. If your symptoms become [...] opioids can be used to help relieve iurehcxa-pq-ogkjwk pain and are often prescribed following a [...] be struggling with addiction, tell your health home health aide caregiver and ask for guidance or call [facility]?S [employer] Helpline at [phone]. x Source: [place] Department of Health and Human Services/Center for Disease Control & Prevention [facility] Medications Given: Medication Dose Route diphtheria/p (more content not included)... Normal [facility] ED Provider Siomara 01-02-20 Route Specialist Authentication Interface Message Text EMERGENCY DEPARTMENT - VISIT NOTE HISTORY OF PRESENT ILLNESS ------ Chief Complaint Patient presents with * Fall Cat 2- Pt tx from [facility] via [facility], per report pt fell, on eliquis, right femur fx found at OSH. [place]: not needed - patient preferred language is [place] Islander. The history is provided by the Patient. [...] twisted under her. She was seen at [facility], found to have right comminuted femur fracture and transferred to [facility]. Given Dilaudid prior to arrival. Patient [...] Ventricular rate of 99, Normal axis, normal IN, prolonged QT, ST T changes: No ST-T [...] [facility] ED Traumaon 01-01-2022 ED Trauma [id number] #1.00CD:127 Normal [facility] EKG 12 LEAD - PERFORMon 12-04 Diagnosis Sinus rhythm with frequent Premature ventricular complexes LVH with left ventricular strain Abnormal ECG No previous ECGs available Confirmed by CHANDAN BALDWIN ([id number]) on 01/01/2022 8:39:16 PM [facility] P wave Atrium by EKG 99 BPM [facility] P wave axis 85 degrees [facility] P-R Interval 190 ms [facility] Q-T interval 374 ms [facility] Q-T interval corrected [address] [facility] 3 degrees [facility] QRS duration 76 ms [facility] T wave axis 130 degrees [facility] GLUCOSE, FINGERSTICK-IN OFFI CEon 01-01-2022 Glucose [Mass/Vol] 125 mg/dL High 80-116 [facility] Comment on above: Performed By: #### 8 2948 ####NURSING GLUCOSE [id number] [place], [address] Glucose [Mass/Vol] 125 mg/dL High 80 - 116 mg/dL [facility] Interpretation and review of laboratory results Abnormal [facility] Glucose [Mass/Vol] 120 mg/dL High 80-116 [facility] Comment on above: Performed By: #### 8 2948 #### NURSING GLUCOSE PROGRAM [address] [place], [address] Glucose [Mass/Vol] 120 mg/dL High 80 - 116 mg/dL [facility] Interpretation and review of laboratory results Abnormal [facility] Glucose [Mass/Vol] 125 mg/dL High 80-116 [facility] Comment on above: Performed By: #### 8 2948 #### NURSING GLUCOSE PROGRAM [address] [place], [address] Glucose [Mass/Vol] 125 mg/dL High 80 - 116 mg/dL [facility] Interpretation and review of laboratory results Abnormal [facility] Glucose [Mass/Vol] 147 mg/dL High 80-116 [facility] Comment on above: Performed By: #### 8 2948 ####NURSING GLUCOSE [address] [place], [address] Glucose [Mass/Vol] 147 mg/dL High 80 - 116 mg/dL [facility] Interpretation and review of laboratory results Abnormal [facility] H AND Hcris 01-01-2022 Route Specialist Authentication Interface Message Text Attestation signed by [...] documented in the resident's note. Transfer from [facility]. Complex right pelvic fracture. Neurovascularly intact. Admit to our service given the age and complexity of the fracture. Surgery pending preop evaluation and workup. Lisha Matson DO Critical care / Trauma / Emergency general surgery My pager: [phone] [facility] resident: -[phone] (admitted) / -[phone] (new pts) [facility] DIVISION OF ACUTE CARE SURGERY TRAUMA SURGERY HISTORY AND PHYSICAL Toribio [facility] [id number] 01/01/22 BASIC INJURY INFORMATION: Level of activation: [...] in by EMS as a transfer from [facility] following fall from standing. She fell [...] status: Single Living status: Home Primary language: [place]er Functional status: Independent Impairments: Hearing loss Assistive [...] disorientatio (more content not included)... Normal [facility] - Blood bankon ABO and Rh group Nom (Bld) Blood group A Rh(D) positive [facility] MAGNESIUMon 01-01-2022 Magnesium [Mass/Vol] 1.9 mg/dL Normal 1.6-2.8 [facility] Comment on above: Performed By: #### C BC #### [facility] [address] [place] [address], [phone] Interpretation and review of laboratory results Normal [facility] Magnesium [Mass/Vol] 1.9 mg/dL 1.6 - 2.8 mg/dL [facility] No Panel Informationon 01-01 [facility] THROMB[facility]IN TIMEo n 01-01-2022 aPTT Coag (Bld) [Time] 28 s Normal 25-37 Th e [facility] Comment on above: Performed By: #### A KHRIS #### S PATHOLOGY LABORATORY [address] [place] [address], aPTT Coag (Bld) [Time] 28 s [facility] Interpretation and review of laboratory results [facility] PHOSPHORUSon 01-01-2022 Phosphate [Mass/Vol] 3.6 mg/dL Normal 2.3-4.2 [facility] Comment on above: Performed By: #### Marquis #### [facility] [address] [place] [address], Interpretation and review of laboratory results Normal [facility] Phosphate [Mass/Vol] 3.6 mg/dL 2.3 - 4.2 mg/dL [facility] PROTHROMBIN TIME AND INRon 0 01-01-2022 INR Coag (PPP) [Relative time] 1.27 {INR} High 0.90-1.10 [facility] Comment on above: Performed By: #### A KHRIS #### [facility] [address] [place] [address], PT Coag (PPP) [Time] 14.3 s High 9.7-12.9 [facility] Comment on above: Performed By: #### A KHRIS #### [facility] [address] [place] [address], INR Coag (PPP) [Relative time] 1.27 {INR} High [facility] Interpretation and review of laboratory results Abnormal [facility] PT Coag (PPP) [Time] 14.3 s High [facility] Procedureson 01-01-2022 Route Specialist Authentication Interface Message Text Transthoracic Echocardiographic Report Name: SIPP TORIBIO HAWLEY MD Physician: : [id number] Referring TATI REYES MD Physician: KENNA OCASIO DO Age: 86 Life Skills Teacher: MELANY Kumari Exam Date: 01/01/2022 Fellow: 08:38 [...] Doctor's order(s) verified. Patient's preferred language is [place] . Supine BP: 138/60 mmHg Patient Status: [...] physician) on 01/01/2022 11:19 AM Normal The [facility] Progress Noteson 01-01-2022 Route Specialist [employer] Interface Message Text Pt refusing turns at this time, educated on importance of q2h turns to prevent pressure injuries, pt verbalized understanding but states her hip hurts too much when moving to turn right now, says maybe later. Will continue to encourage throughout the night. Normal The DEUSation Interface Message Text SW aware of rand butter screen yield for pt has ADs, paper copy not with pt. SW will follow up as able. Radha Cox [facility] [phone] Normal The Five minutes Interface Message Text GENERAL INFORMATION --------- TRAUMA STAFF NOTE Patient Name: Toribio Betts Patient seen and examined on 01/01/2022 -------- INTERVAL HISTORY/EVENTS ------ Background: Toribio Betts is a 86 year old female brought in by EMS as a transfer [facility] following fall from standing. She fell and her leg twisted under her. She is on Eliquis. Hospital Course: 12/31/2021: S/p fall, patient was admitted to [facility] 24 Hour Events: Patient was admitted to [facility] Saturating at 99% on 2L NC [...] and concerns related to the patient. (Pager: [phone]) SCRIBE ATTESTATION 01/01/2022, 7:01 AM. This note [...] 01-01-2022 RAD - Preliminary Cat Scan Report [id number] #1.00CD:127 Normal [facility] TYPE AND SCREENon 01-01-2022 ABO and Rh group Nom (Bld) Blood group A Rh(D) positive Normal [facility] Comment on above: Performed By: #### 8 2948 #### NURSING GLUCOSE PROGRAM [address] [place], [address] ABO and Rh group Nom (Bld) No Previous Results Normal [facility] Comment on above: Performed By: #### 8 2948 #### NURSING GLUCOSE PROGRAM [address] [place], [address] ABSC INT Negative Normal [facility] Comment on above: Performed By: #### 8 2948 #### NURSING GLUCOSE PROGRAM [address] [place], [address] ABO and Rh group Nom (Bld) Blood group A Rh(D) positive [facility] ABO and Rh group Nom (Bld) No Previous Results [facility] Blood group antibody screen Ql Negative [facility] Transfer Documentson 022 Transfer Documents [id number] #[id number]:127 Normal [facility] U Drug Screenon 01-01-2022 Amphetamines Screen method >1000 ng/mL Ql (U) Negative Normal Negative [facility] Comment on above: Result Comment: Nega tive Cutoff: <1000 ng/mL Performed By: #### 2 985982 ####[facility] [address] [place] [address] Barbiturates Screen Ql (U) Negative Normal Negative [facility] Comment on above: Result Comment: Nega tive Cutoff: <200 ng/mL Performed By: #### 2 539562 ####[facility] [address] [place] [address] Benzodiazepines Ql (U) Negative Normal Negative [facility] Comment on above: Result Comment: Nega tive Cutoff: <200 ng/mL Performed By: #### 2 313158 ####[facility] [address] [place] [address] Cocaine Ql (U) Negative Normal Negative [facility] Comment on above: Result Comment: Nega tive Cutoff: <300 ng/mL Performed By: #### 2 767935 ####[facility] [address] [place] [address] Opiates Screen Ql (U) Negative Normal Negative Fis [facility] Comment on above: Result Comment: Nega tive Cutoff: <300 ng/mL Performed By: #### 2 057212 ####[facility] [address] [place] [address] Phencyclidine Screen method >25 ng/mL Ql (U) Negative Normal Negative [facility] Comment on above: Result Comment: Nega tive Cutoff: <25 ng/mL These drug screen results are to be used for medical (i.e., treatment) purposes only. Unconfirmed drug screening results must not be used for non-medical purposes (e.g., employment testing, legal testing). Performed By: #### 2 051208 ####[facility] [address] [place] [address] Tetrahydrocannabinol Screen method >50 ng/mL Ql (U) Negative Normal Negative [facility] Comment on above: Result Comment: Nega tive Cutoff: <50 ng/mL Performed By: #### 2 753101 ####[facility] [address] [place] [address] UA With Cult Reflexon 2021 Bilirubin Ql (U) Negative Normal Negative [facility] Comment on above: Performed By: #### 1 0932273 ####[facility] [address] [place] [address] Clarity (U) CLEAR Normal Clear [facility] Comment on above: Performed By: #### 1 1638144 ####[facility] [address] [place] [place] [address] Color (U) STRAW Abnormal Yellow [facility] Comment on above: Performed By: #### 1 4661407 ####[address] [address] Epithelial cells.squamous LM.HPF (Urine sed) [#/Area] 0-2 Normal 0-2 [facility] Comment on above: Performed By: #### 1 2899027 ####[address] [address] Glucose Test strip (U) [Mass/Vol] Negative Normal Negative [facility] Comment on above: Performed By: #### 1 4233993 ####[address] [address] Hemoglobin Ql (U) TRACE Abnormal Negative [facility] Comment on above: Performed By: #### 1 6838847 ####[address] [address] Ketones (U) [Mass/Vol] Negative Normal Negative [facility] Comment on above: Performed By: #### 1 5175630 ####[address] [address] Sauget.plasma/Sauget .RBC (Bld) [Mass ratio] 0-3 Normal 0-3 [facility] Comment on above: Performed By: #### 1 8648000 ####[address] [address] Nitrite Ql (U) Negative Normal Negative [facility] Comment on above: Performed By: #### 1 6794120 ####[address] [address] pH (U) 7.0 [pH] Invalid Interpretation Code 5.0-9.0 [facility] Comment on above: Performed By: #### 1 4374143 ####[address] [address] Protein (U) [Mass/Vol] Negative Normal Negative [facility] Comment on above: Performed By: #### 1 7045527 ####[address] [address] Specific gravity (U) [Rel density] 1.010 Invalid Interpretation Code 1.005-1.030 [facility] Comment on above: Performed By: #### 1 6392517 ####[facility] [address] [place] [address] Type of Urine collection method Clean Catch Normal [facility] Comment on above: Performed By: #### 1 6930396 ####[facility] [address] [place] [address] Urobilinogen Qn (U) 0.2 {Daily'U}/dL Normal 0.0-1.0 [facility] Comment on above: Performed By: #### 1 6937244 ####[facility] [address] [place] [address] WBC Auto Ql (U) Negative Normal Negative [facility] Comment on above: Performed By: #### 1 7257600 ####[address] [address] WBC LM.HPF (Urine sed) [#/Area] 0-5 Normal 0-5 [facility] Comment on above: Performed By: #### 1 1536059 ####[facility] [address] [place] [address] Vaccinationson 01-01-2022 Vaccinations [id number] #1.00CD:127 Normal [facility] XR Chest Single Viewon 01-01 XR Chest [...] MD Transcribed by: MADAY Technologist: JADYN Wahl [facility] XR Femur Min 2 Views Righton 01-01-2022 XR Femur Min 2 Views Right Exam Date/Time: 12/31/2021 19:46 EDT Reason for Exam: Pain, Traumatic Report PLEASE SEE XR Hip 2-3 Views Right + Pelvis REPORT DATED: 12/31/2021. FINAL REPORT Dictated: 01/01/2022 3:38 pm Evin Saldivar MD Signed (Electronic Signature): 01/01/2022 3:38 pm Signed by: Evin Saldivar MD Transcribed by: MADAY Technologist: JADYN Wahl [facility] XR Forearm 2 Views Righton 0 01-01-2022 [...] MD Transcribed by: MADAY Technologist: BRYCE Normal [facility] XR Hip 2-3 Views Right + Pel [...] MD Transcribed by: MADAY Technologist: RAB Normal [facility] ABO/Rhon 12-31-2021 ABO/Rh Positive Invalid Interpretation Code [facility] Comment on above: Performed By: #### 1 [id number], 55343796, 15105798, 8088045 ####[facility] [address] [place] [address] ABSCon 12-31-2021 ABSC Gel Interp Negative Normal [facility] Comment on above: Performed By: #### 1 5394129, 46288197, 52714064, 4815243 ####[facility] [address] [place] [address] Auto DiffOrdered By: SYSTEM SYSTEM on 12-31-2021 Basophils/100 WBC (Bld) 0.6 % Normal 0.0-2.0 [facility]eAuto[facility] Comment on above: Order Comment: Order Added by Discern Expert. Performed By: #### 2 339448, 0137740, 9263566, 4031011, 4792255, 7478047, 83044312, 0405089, 5652616 #### [facility] Laboratory [address] [place] [address] Basophils/Leukocytes Auto (Bld) [Pure # fraction] 0.0 E9/L Normal 0.0-0.2 FT [facility]eAutoSS Comment on above: Order Comment: Order Added by Discern Expert. Performed By: #### 2 373204, 5762012, 8152384, 2693082, 2095185, 5454940, 57107515, 5199217, 8084541 #### [facility] Laboratory [address] [place] [address] Eosinophils/100 WBC (Bld) 1.4 % Normal 0.0-8.0 [facility] HemeAutoSS Comment on above: Order Comment: Order Added by Discern Expert. Performed By: #### 2 648325, 0757348, 3089045, 8484452, 0420941, 4031315, 53581969, 5357162, 3999711 #### [facility] Laboratory [address] [place] [address] Eosinophils/Leukocytes Auto (Bld) [Pure # fraction] 0.1 E9/L Normal 0.0-0.5 [facility] HemeAutoSS Comment on above: Order Comment: Order Added by Discern Expert. Performed By: #### 2 896439, 9708096, 1874303, 8662066, 8713046, 0932190, 35357370, 2620477, 7117315 #### [facility] Laboratory [address] [place] [address] Lymphocytes/100 WBC (Bld) 29.8 % Normal 14.0-50.0 [facility] HemeAutoSS Comment on above: Order Comment: Order Added by Discern Expert. Performed By: #### 2 965545, 9165937, 8757106, 0158737, 1408612, 5264345, 46421616, 9245996, 6278507 #### [facility] Laboratory [address] [place] [address] Lymphocytes/Leukocytes Auto (Bld) [Pure # fraction] 2.1 E9/L Normal 1.0-4.0 [facility] HemeAutoSS Comment on above: Order Comment: Order Added by Discern Expert. Performed By: #### 2 785124, 9340202, 5845352, 2117450, 4954534, 5138486, 15710889, 1030138, 8565005 #### [facility] Laboratory [address] [place] [address] Monocytes/100 WBC (Bld) 7.4 % Normal 4.0-14.0 [facility] HemeAutoSS Comment on above: Order Comment: Order Added by Discern Expert. Performed By: #### 2 673275, 0284757, 8911583, 8731523, 2628427, 2646636, 51923449, 8366356, 2847232 #### [facility] Laboratory [address] [place] [address] Monocytes/Leukocytes Auto (Bld) [Pure # fraction] 0.5 E9/L Normal 0.2-1.0 [facility] HemeAutoSS Comment on above: Order Comment: Order Added by Discern Expert. Performed By: #### 2 704632, 4505605, 1743267, 8419069, 5844863, 3843476, 00924992, 2083314, 5235478 #### [facility] Laboratory [address] [place] [address] Neutrophils/100 WBC (Bld) 60.8 % Normal 36.0-75.0 [facility] HemeAutoSS Comment on above: Order Comment: Order Added by Discern Expert. Performed By: #### 2 527968, 0810958, 3085073, 3100721, 3352700, 7881318, 85893776, 6349250, 4438587 #### [facility] Laboratory [address] [place] [address] Neutrophils/Leukocytes Auto (Bld) [Pure # fraction] 4.3 E9/L Normal 2.0-7.5 [facility] HemeAutoSS Comment on above: Order Comment: Order Added by Discern Expert. Performed By: #### 2 505550, 6401187, 6384170, 9724165, 1288213, 1232448, 03944826, 8852314, 6055713 #### [facility] Laboratory [address] [place] [address] BLOOD BANKOrdered By: Des Marie on 12-31-2021 ABO/Rh Interp Positive Invalid Interpretation Code [facility] BB Subsection ABSC Gel Interp Negative (12/31/21 7:00 PM) Normal [facility] BB Subsection BMPOrdered By: SYSTEM SYSTEM on 12-31-2021 Creatinine [Mass/Vol] 0.9 mg/dL Normal 0.5-1.3 [facility] C Remisol Comment on above: Performed By: #### 2 629105, 7808651, 1158252, 5230908, 3101260, 9379166, 06872221, 0516650, 6838294 ####[facility] [address] [place] [address] Urea nitrogen [Mass/Vol] 18 mg/dL Normal 5-21 [facility] Remisol Comment on above: Performed By: #### 2 350914, 6482189, 4175979, 2064902, 6224116, 8496993, 90240467, 0923249, 5091705 ####[facility] [address] [place] [address] Anion gap [Moles/Vol] 14 mmol/L Normal 6-16 [facility] C Remisol Comment on above: Performed By: #### 2 755699, 9059623, 6612414, 1523691, 7293191, 3481085, 85471649, 3834083, 4637607 ####[address] [address] Calcium [Mass/Vol] 8.7 mg/dL Low 8.9-11.1 FT R emisol Comment on above: Performed By: #### 2 719266, 0193972, 3467958, 4405574, 0917605, 1984604, 87521351, 1417050, 4919645 ####[address] [place] [address] Chloride [Moles/Vol] 103 mmol/L Normal 101-111 [facility] Remisol Comment on above: Performed By: #### 2 488991, 3212032, 3203012, 7635413, 6596068, 3575234, 43450971, 3890918, 8815624 ####[address] [place] [address] CO2 [Moles/Vol] 26 mmol/L Normal 21-31 [facility] Mack krystal Comment on above: Performed By: #### 2 306708, 1047130, 5487854, 1894271, 2330025, 4401788, 75618704, 4221211, 0978030 ####[facility] [address] [place] [address] Glucose [Mass/Vol] 156 mg/dL Normal 55-199 [facility] R emisol Comment on above: Result Comment: If t his glucose result represents a fasting glucose, interpretation should refer to the following reference range: 55-99 mg/dL Performed By: #### 2 173767, 5637075, 5258204, 1887254, 3258836, 5472664, 01489387, 2813999, 6714860 ####[facility] [address] [place] [address] Potassium [Moles/Vol] 3.5 mmol/L Normal 3.5-5.3 [facility] C Remisol Comment on above: Performed By: #### 2 511600, 3833674, 0607265, 4159168, 9102568, 7560152, 27192708, 3330186, 1783002 ####[facility] [address] [place] [address] Sodium [Moles/Vol] 139 mmol/L Normal 135-145 [facility] R emisol Comment on above: Performed By: #### 2 573042, 8510262, 7035952, 0729051, 5994363, 6026979, 64276484, 0161379, 6276666 ####[facility] [address] [place] [address] [facility] 12-31-2021 Urea nitrogen/Creatinine [Mass ratio] 20 No Units Normal 10-20 [facility] Comment on above: Performed By: #### 2 566184, 5218432, 2728020, 7068267, 7456788, 6829368, 02958754, 5619814, 8983296 ####[facility] [address] [place] [address] Blood Bank ID#on 12-31-2021 BBID# [id number] Invalid Interpretation Code [facility] Comment on above: Performed By: #### 1 0020978, 82502509, 85062721, 2443584 ####[facility] [address] [place] [address] CBC w/ Auto DiffOrdered By: Des Marie on 12-31-2021 Erythrocyte distribution width (RBC) [Ratio] 13.2 % Normal 10.9-14.2 [facility]eAutoSS Comment on above: Performed By: #### 2 412741, 5167007, 3223056, 5449514, 9372413, 4968300, 29625872, 8463021, 9362103 #### [facility] [address] [place] [address] Hematocrit (Bld) [Volume fraction] 35.8 % Normal 34.0-46.0 [facility] HemeAutoSS Comment on above: Performed By: #### 2 109494, 1617650, 4241091, 9870511, 6378473, 2078047, 56906551, 1381798, 5596427 #### [facility] [address] [place] [address] Hemoglobin (Bld) [Mass/Vol] 12.2 g/dL Normal 12.0-16.0 [facility] HemeAutoSS Comment on above: Performed By: #### 2 419951, 8653143, 6602209, 0189762, 5263365, 9552819, 31041386, 3186322, 1694730 #### [facility] [address] [place] [address] MCH (RBC) [Entitic mass] 30.4 pg Normal 27.0-34.0 [facility] HemeAutoSS Comment on above: Performed By: #### 2 410655, 3697386, 5755510, 7911889, 8527976, 9152006, 02636065, 8847159, 2858279 #### [facility] [address] [place] [address] MCHC (RBC) [Mass/Vol] 34.1 g/dL Normal 31.4-36.0 FT C HemeAutoSS Comment on above: Performed By: #### 2 501749, 4419617, 6288255, 9589117, 0263562, 0757691, 58047869, 0953566, 9320509 #### [facility] [address] [place] [address] MCV (RBC) [Entitic vol] 89.2 fL Normal 80.0-100.0 [facility]eAutoSS Comment on above: Performed By: #### 2 262235, 6240288, 6655840, 8901736, 3850585, 3089752, 77138140, 0068765, 5631210 #### [facility] [address] [place] [address] Platelet mean volume (Bld) [Entitic vol] 9.0 fL Normal 6.4-10.8 [facility] HemeAutoSS Comment on above: Performed By: #### 2 222737, 1155573, 5630618, 7357315, 4041904, 7181491, 52331325, 1217778, 8768582 #### [facility] [address] [place] [address] Platelets (Bld) [#/Vol] 176.0 E9/L Normal 150.0-500.0 [facility] HemeAutoSS Comment on above: Performed By: #### 2 303955, 5614920, 7001953, 8150183, 4542372, 4055282, 42938938, 5606369, 5005511 #### [facility] [address] [place] [address] RBC (Bld) [#/Vol] 4.0 E12/L Low 4.3-5.9 [facility]eAutoSS Comment on above: Performed By: #### 2 334637, 5267555, 7545206, 2069949, 1997235, 7923480, 17864685, 7679640, 2358294 #### [facility] [address] [place] [address] WBC corrected for nucl RBC Auto (Bld) [#/Vol] 7.1 E9/L Normal 4.0-11.0 [facility] HemeAutoSS Comment on above: Performed By: #### 2 748201, 8468261, 7032349, 4151444, 7905291, 8051906, 34769814, 5781521, 9131779 #### [facility] [address] [place], [place] [address] CHEMISTRYOrdered By: SYSTEM SYSTEM on 12-31-2021 Amphetamines [...] for Treatmenton 12-04 Consent for Treatment [id number] 1#1.00CD:127 Normal [facility] EthanolOrdered By: SYSTEM SY STEM on 12-31-2021 Ethanol [Mass/Vol] mg/dL Normal <=7 FT R emisol Comment on above: Performed By: #### 2 583284 ####[facility] [address] [place] [address] Hep Func PanelOrdered By: SY STEM SYSTEM on 12-31-2021 Albumin [Mass/Vol] 3.7 g/dL Normal 3.3-5.0 FT R emisol Comment on above: Performed By: #### 2 819302, 8453419, 5084810, 7031362, 0050897, 1681592, 59438877, 3777399, 0036875 ####[address] [address] Bilirubin [Mass/Vol] 0.7 mg/dL Normal 0.0-1.1 [facility] Remisol Comment on above: Performed By: #### 2 587256, 5889828, 2744500, 4464903, 2481520, 5302180, 06144809, 2954891, 4838935 ####[address] [address] Bilirubin.direct [Mass/Vol] 0.1 mg/dL Normal 0.1-0.4 [facility] Remisol Comment on above: Performed By: #### 2 981735, 4144172, 6700983, 0401385, 4850279, 9055194, 62455190, 6873667, 8393956 ####[address] [address] Bilirubin.indirect [Mass or moles/Vol] 0.6 mg/dL Normal 0.1-0.9 [facility] Remisol Comment on above: Performed By: #### 2 155061, 8356298, 7123906, 5616174, 0353288, 5480038, 30388210, 2405691, 6192631 ####[address] [address] Globulin (S) [Mass/Vol] 2.8 g/dL Normal 1.4-4.0 [facility] Comment on above: Performed By: #### 2 739670, 0281163, 5758286, 9970490, 2151548, 9178584, 40071852, 7869979, 0263412 ####[facility] [address] [place] [address] Protein [Mass/Vol] 6.5 g/dL Normal 6.0-7.8 [facility] R emisol Comment on above: Performed By: #### 2 849177, 6537016, 3811235, 9102035, 9691960, 1629833, 18478263, 8598988, 4540163 ####[address] [address] Hep Func Panelon 12-31-2021 Albumin/Globulin (S) [Mass conc ratio] 1.3 Normal 1.1-2.2 [facility] Comment on above: Performed By: #### 2 448404, 2442712, 7417294, 9800168, 4221008, 5751534, 53673129, 9687032, 5939055 ####[address] [address] ALP [Catalytic activity/Vol] 53 Int._Unit/L Normal 21-98 [facility] Comment on above: Performed By: #### 2 791433, 2088610, 2070881, 4693426, 3487978, 2126411, 35375677, 2186270, 5930690 ####[facility] [address] [place] [address] ALT No additional P-5'-P [Catalytic activity/Vol] 25 Int._Unit/L Normal 6-46 [facility] Comment on above: Performed By: #### 2 757356, 1695733, 7031054, 6761649, 9516967, 4343475, 11404324, 6407747, 8459874 ####[address] [address] AST [Catalytic activity/Vol] 25 Int._Unit/L Normal 5-43 [facility] Comment on above: Performed By: #### 2 993755, 0152784, 0878627, 6881819, 2851638, 6039230, 18645711, 8443357, 7486923 ####[facility] [address] [place] [address] Lactic AcidOrdered By: [employer] SYSTEM on 12-31-2021 Lactate [Mass/Vol] 1.7 mmol/L Normal 0.5-2.2 [facility] R emisol Comment on above: Performed By: #### 2 172124, 1876101, 9941175, 1147502, 5430080, 5571624, 46277201, 2198490, 5546294 ####[facility] [address] [place] [address] Lipase LevelOrdered By: [employer] SYSTEM on 12-31-2021 Lipase [Catalytic activity/Vol] 31 U/L Normal 13-58 [facility] Remisol Comment on above: Performed By: #### 2 901852, 4555822, 9337818, 1705238, 7339764, 5363322, 91070357, 9595516, 8924542 #### [facility] [address] [place], [place] [address] MagnesiumOrdered By: SYSTEM SYSTEM on 12-31-2021 Magnesium [Mass/Vol] 2.0 mg/dL Normal 1.3-2.4 [facility] Remisol Comment on above: Performed By: #### 2 771388, 0045446, 8956398, 1542883, 4644818, 7590406, 22240809, 3833535, 6658412 ####[facility] [address] [place] [address] PT & PTTon 12-31-2021 aPTT Coag (PPP) [Time] 29.5 second(s) Normal 25.1-36.5 [facility] Comment on above: Result Comment: Hepa rin therapeutic range (represented by Anti-Factor Xa activity of 0.2 - 0.4 U/mL) corresponds to PTT of 56.6 - 109.0 sec. Performed By: #### 2 163946, 3589614, 1169420, 1063364, 7866525, 1996183, 98616162, 9101965, 6190534 #### [facility] [address] [place] [address] PT Coag (PPP) [Time] 14.8 second(s) High 10.2-12.9 [facility] Comment on above: Performed By: #### 2 213504, 2852601, 0038502, 0068696, 7797973, 2107674, 24754681, 9851507, 2241510 #### [facility] [address] [place] [address] PT & PTTOrdered By: Dirk aguiar on 12-31-2021 INR Coag (PPP) [Relative time] 1.2 {INR} Invalid Interpretation Code [facility] Auto Coag Comment on above: Result Comment: INR results are specifically intended to assess patients stabilized on long-term Anticoagulation therapy suggested INR?s ?Less Intensive Anticoagulation? 2.0 ? 3.0 Conventional Range 3.0 ? 4.5 Performed By: #### 2 363730, 2852181, 6945618, 0061470, 9591412, 5860014, 61662011, 9224468, 4272155 #### [facility] [address] [place] [address] Pre-Arrival Noteon Pre-Arrival Note Pre-Arrival Summary Name: , moose Current Date: 12/31/2021 18:32:39 EDT Gender: Female Date of : Age: 86 Pre-Arrival Type: EMS ETA: 12/31/2021 18:50:00 EDT Primary Care Physician: Presenting Problem: fall Pre-Arrival User: Referring Source: Location: Completion Date/Time: 12/31/2021 18:20:00 [facility] Emergency Department Pre-Hospital Report Form Vital Signs: BP 189/72, HR 78, SPO2 95% RA Pre-Hospital Report: Pt fell on right leg complaining of right thigh pain. No obvious deformities. PT is on eliquis Treatment in Route: 22 LFA, 0.5 mg dilaudid @ 1755, 0.5 mg dilaudid @ 1800, fluids TKO Response to Treatment: Misc. Issues: Normal [facility] TroponinOrdered By: PAUL S YSTEM on 12-31-2021 [...] Sensitivity Troponin I Instructions For Use, Delmy Chazy, March 2018) Performed By: #### 2 521221, 1207759, 3787792, 6034628, 0081580, 8639631, 83294038, 3974400, 4699615 ####[facility] [address] [place] [address] URINALYSISOrdered By: Dirk sharma on 12-31-2021 Bilirubin [...] PM) Normal Negative [facility] UA Auto SS Sauget.plasma/Sauget .RBC (Bld) [Mass ratio] 0-3 /HPF Normal [...] [facility] UA Auto SS Urobilinogen Qn (U) 0.8453238 {Daily'U}/dL Normal 0.0 - 1.0 EU/dL [facility] [...] Cardiology Clinic Friday 11:00 AM EDT With: Janan MANN MD Where: [facility] Primary Care Normal [facility] Ambulatory Visit Summary TORIBIO BETTS :1935 Visit [...] AM EDT With: Janna MANN MD Where: [facility] Primary Care Normal [facility] Family Medicine Office/Clini c Noteon 10-23-2021 Family [...] 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 Normal [facility] Comment on above: Result Comment: Elec tronically [...] doctor. This is important. Medicines ? Take pgch-tjl-yejqoiv and prescription medicines only as told by [...] to (more content not included)... Normal [facility] Coding Summary.on 10-22-2021 Coding Summary. [id number] Gh0bWw+PGhlYWQ+PE1FV JHiT68jeYKupG7TR9eVX T4DUHOMBKSNOB1EQF5vx HA8UGntX6OaoiQy HoceaENrYS03NMr4OFP5 dIibNNxmaF9qsCRrP7q1 HmPjFS86rX36KBgnRVAa WwX7DoVsslhytYBa M1wyQdHbaTMdGrt+PHRh YmxlIHdpZHRoPScxMDAl RaCxtIrqJG6zNo1xEFFm LWNvbGxhcHNlOiBj i3qhMLCmYQidLX5fgBzy U2IrnBP6UFTrm5x7Pb94 dHI+YQDoNBP9oGuwSAlj h228NiIhz9ibJNA2 nVXiVRxzJYV0Y59ta2L8 MEYvEGToAAK1iCC2cU4a gThwxutgF1MrzWYkUnT3 JOD9fZKclA3dkPea lotdtR9hClv+N93XXW1C DWXKIH0EYfz0F8JeFnuk dHI+EO01QNLoJF88rHWx pLZpa5efkHv1IdYl DDNuFXA0mEprTLqze0Xm VGNtN18zzAJdq5P0TKZe rXblmEXuOpIclAJ2iW5k RKbqjtbxu8kucfpd Pktqw6uchv20qK45O84g HYjpKMYdAPN9HTHoFYHv hLeopu2apS9gAn2+IDxj v3mzz8rnbQi5WaSh IKHgwaUbuNnrBOA5t0Bo Gd32Q6UepKmgx7AqVdg8 jn41hMZsv7P5iWJ5CVjm RNYdjH8fWIhpYnF4 REZgPnCvtA18uIExIQmo Sv0ymKxolFssBK9wVLMq eagePBMrdY4tJDEmdJMz tFisTC6rJHIglyvf w034HwSlNFS4IHXihJUv J2HdwF9xCqXiKYPeIGOb F4LeyFCfMXzcE694YGdb TgF7JFJdfnUvI3Mh NJTcgTntViW2g5V3Gt7S v8ZmtitbPSR3LJdkDIHx ObYlOjAdNbU4B3EaRde6 SWAujQvbUD6dS1Ca PKFayfsewidesUN4ZSEy PPNipP29rNJiVXpyJo9g h7G4n719LSFcHCCcbX94 Xn5ibCjfTGDguMUZ rL3dzdkwr3chrjicHtEi ARMdKGf6OIv6JBMmzQof MsAfRNG6SnG1ZWP8xDNg qR6nnPaeukvzzV9k Oyc+A44dgU3iYNL3XSA0 dpzrNMWyxqTeER14ZO77 J5MyVpbbfCBqkOL+PGRp bwRjbMblTW6zLpIq q0vey3IiJBjtS8DnSEVs CMwlLdg2XIEgMSV2hYT2 zQ7jAMHhKFgcn5P6hDU6 V6RstkQcaw1sq9mf XDLyQZhzP49hiERrp1T7 HHCfwYL7GUXxmRijPkLu yC50Hpt+KNCjsKquh2Cz Zwpsr1mzu8eitRw9 IjMwJSIgdmFsaWduPSJ0 q1JmIa97Z43nTXhuTXUg ILKtEEOlFJPscPohxo8j tP7yWn9+PGNvbCB3 zME2lW2aDNLzZkZ9EWdj C613AcPdeVCoMrzuo6ke k3geuLq6FuOeYTSebgUm nWvtPFK2m2YmTe07 A65mDLguVJKwGQRvAKWz AOVpnTioff3vkS3aJy5+ YL9qd1jhkc16zS14hSG+ UOGyDEA6kFvnYYke WPOutU0lPCcdTmC7YICc PnRhpL44jHSiMIogHj7f yLjobSwnAC6mSJLhbpaf a886AoSty3muGXZi qISwXCuoHJQ9Y77da6G0 LTGgKVMtDRU5oHH2dC3r bGlnbjogbGVmdDsgdmVy tEjdHXckHMfhM090 IHRvcDsnPlBhdGllbnQg VyUwXBc0P0ItXlf2WAQv zLpiPV4izVGvEVhxRr4d fTfksLwuFK6sTJRg ixxxw393GoSmg0xdPQJu jPMwLVjcJCX5B11eu4E6 CDQxPHZtNBJ8lBN2yL4b bGlnbjogbGVmdDsg rqOiwAycCGobDVnyY609 IHRvcDsnPkJpcnRoIERh hWZ6NE50XZ11dTYlx7S9 bJE1T8PoCKPhbjpz ihukoYL0RMSdEYDveE36 Rg1mpGxeHl2rJRDvSMT9 RSOcjHPkN8FxmF7yBrEe PPLxGYYeM6DdzQTs DLhbH337OUglDjI6UVRx gyHfM3UoRHXjzIclMjB0 f5Q2Ux7FZ5C4IJ85KR74 lAPis6M2aTI9J1Fg AWKivyqqbevqgXR8ADZm OEHpqD82Fu2gmDxcWl1x LQHaOJJ3XVBazPJrZ6Mn zI5lIsXwLCPhEWWz B6GheLSmDChaL590FDov HiH7DFTaswRkS1SuFYXa aJstYzX8x6A6Ph3ZGJh3 MD15FN20tSQhh3W7 bTK4J0GfTNHpehhpnujm uZH6IYPhGLUkfJ46Ka3c wXnpGp3bUZHjAXS6NBYt ePDyE9VtuL9hGdEb LEQjOSNsC2QesPFnUDee X025XAbkYfC2EURlxlNp Z0EcIYTeiLneCoQ1h9T7 Bg5CTUUgFO58FYP0 oHE4WO95WJ85H5CrVtdc dGFibGU+PHRhYmxlIHdp ZHRoPScxMDAlJyBzdHls OH6sRk4dIOWwQRBk jUtymEWgXhQxx9sfHBGf FZnhNV1vaTjpJ2FegHX6 JKDwt9n3Ko93I40vM1Is dXA+WLOmyKG2iRP0 wH3aBzZlQcS7OMxuD782 XjYayEJvHztsa6dwm4cw tJi1EqN6MBNyjzEecVhs YDW6j4LnWe34Q91j IHdpZHRoPSIxNSUiIHZh bJqlly8ngC8zWh5+PGNv dUL4jDL6fF9eIhQwHvK7 FWkpL307VyAjnKFo Tpzrz5fwl4zrtQw4PgKn QWGkfqIlhQddBDL8s4Fd Px34T2VhhPcix3KoLlu5 vr35tJLlb2S1tOU5 U8NgBQEovexicWLkqHkg VN2uLVDolmmyNPYqzW4o MBVxX0t6HmMzTqC0YLqf W0IzrjE0QTPypATr LAouPAF5Z27xj1H0NBZp YHUfERC3yIP9pX4jqHvk bjogbGVmdDsgdmVydGlj MQfnVMfgU546KFZz kMuaSIQkjU0tYTCsmGJd eLddWV0qNEJvmfrpZkYR EKJlXSYLAIITV4mGGTE3 D0JvVgv8DWLeeDtd ZQ9ysRXuWSecYj5gwFvz dSrsBO5uVDRvsrelNQMz yL5tEYOtyGKxmIloWZ3r MMBdvhira615LfWn NDR2DLEacDFkB5EgrN6g PiRbEFWsHSBoM7EhdHZk QJvkE692RSgeFhK3GFGo dgNzE2XwWDNltUcx RaT6p6H4Un2aPh3sAV3o VMO8BH62QW23jXHud9Y7 gPQ6H6CmRRTfmusposxf sIQ2CWCbGQLctF47 iDMbFAmiVp0xm7X7v688 PZTbXPHbbU62Be9mgPmd QSUsjZFLnV3gxczux8lo cjogIzAwMDAwMDt0 TDi7OQFzcCxgWlJoJSC0 FbM9DWQ0vYXhhG7ojFvq yvvkjL7zRmh+ODcgWWVh vzY8I3UfNcj5JPNd iTeuIF6zsNKiHJhmOs6u aLfrhWhjDE0uLRFzkzjj EHTapV8rEHKefTJfuDcl VZ4dOTVqytttb931 IaShOKV4WGYtrMHrT1Mg iN3yCyZdJUZtVFIiZ8Nh pNAuZMfiN973EIwqHlA4 SCSpgyGkT3QsTDSb zYahBxT5n3D5Dj4JCW6d hLM4W9NzHqb2NHMncHne JP8fhIBtOLneYn2lvDmz qOlnIE6cVGMzdsxz FBPekY3vVTTziPWovVzb CY2eGODpircxr545QfJv ADW3MQYtxJXaE6AavP9t BdKjLSKtJIGeF6Tq eWMlKOegL083YFgaCiU3 TPOhugLgE7MaSTEjzBtt EyF4t3V8Dk7GzEBsMVFe WV23AG19PN58D8Vg PjwvdGFibGU+PHRhYmxl IHdpZHRoPScxMDAlJyBz qCywHZ5pUn5zKMZvEVYc jZxysWMsQmSqs8bj JTCiVZtqDC9fjNykQ4Hz lMI3WUZcz8l2Mn66Y43f N0ApvCA+NCJcaHR6rTD8 xO3bRpVwDsW8WKnq Y060TeGoqMWtIdqnm3at l5wepQw9VvPmOIOngfNk gLmsIYN9z6JiLb29L08m IHdpZHRoPSIyMCUi SAKagDytfd4psX4aZf0+ IPSaeEM1yPC6kB9dGcId DtJ8ERwmE476MrRhzWEa NcupD68bK4OhcIJ+ UECvCiz9IWXwySewDE8e wSCnDJoaRp8tOAY1WaJu QlEiZZylO6HaEQDrgwjd cgxtbUY5FCLkYGHr iE09Ii8zwFuaWk3wGBPx UXZ7NLMrdLGjN3HntZ5o DeNrWNKbXBNjU9QgmLZc JJrgZ813MRisKsE2 IHOnqbVxB6EvJMFmtRog HbM2a2V9Tf1OnIpjtQRc KR8aKqPwIVn7R0QrEyl6 SVJlcUqbIX9ndQGo CReeHk9iwVyjeUajFY2e NLYqnlbix992VxDkq1rp OTBcbDHnNOylARE4K31j h9R4VYVwZAUvPYG8 iGT6cE2ttYoyioescVDg dDsgdmVydGljYWwtYWxp J508YPDtjQkoToSBSnq0 L9SvQob2DNJxcCln YW7tqZVvXDowPc5qnOwn dGtwKU7aDLZhvyudx527 JiWth5zqPMRwfIShFAvw CWY2D06tn8X1PKZr WXLoEGJ0pUQ7mE3adTgd bjogbGVmdDsgdmVydGlj CTxuOYmgC429VLLyeVuc Va2GWtf8V9HaRcp0 QIAvjPnzGP7ksEEzBQwq Ho9lzXczePnhWC5xEYNe tkrkr354PsDci8sxGTOt nDIlCDokHQU0T09l y8V7IKEvFNYuSQP0wAD0 dC1wtTkqfggdnHOilGkq vvCuePveERsfHImqR054 IHRvcDsnPlBheWVy OjwvdGQ+OA83ja75N2Ax HuyeTzi6ZBWzFZK6eBP9 uN5kAFTmRKcdr9E9eXA7 P3IlsbWvud7tq3kx YXBz (more content not included)... Normal [facility] Heart [facility] Vascular [facility] Noteon 10-21-2021 Heart and Vascular Office/Clinic Note [...] artery disease) (I25.10: Atherosclerotic heart disease of [place] coronary artery without angina pectoris) 2. Bradycardia (R00.1: Bradycardia, unspecified) 3. HTN (hypertension) (I10: Essential (primary) hypertension) 4. HLD (hyperlipidemia) (E78.5: Hyperlipidemia, unspecified) Follow Up: 3 months Documentation services were performed after patient or guardian consented to allow [employer] to record this visit. 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 HANNAH: [...] disease: Mother. Diabete (more content not included)... [facility] Comment on above: Result Comment: Elec tronically Signed By: Angella MAYERS, Axel Bravo\.br\Date and Time Signed: 10/21/21 08:07 EDT\.br\Electronically Co-Signed By: Apoorva Apodaca\.br\Date and Time Co-Signed: 10/09/21 19:13 EST Consent for Treatmenton 03-0 Consent for Treatment [id number] 20 [id number] #1.00CD:127 [facility] Progress Note-Physicianon 03 -08-2022 Progress Note-Physician [id number]#1.00CD:127 Normal [facility] Coding Summary.on 10-03-2021 Coding Summary. [id number] Gh0bWw+PGhlYWQ+PE1FV HXkX18rjFOmaI1OV7rVT D8XUQPDYSOZYV9ALH7ql IJ5QOuhR5JsyjTs DtlujWPjUO38OZm6CFM7 oKgrXNbrzT4heQUcU0n4 SeTeKW68oO65UHlrNYPm RiB0VjMxzfmgaUPj L7oqAvJgtXJtHxx+PHRh YmxlIHdpZHRoPScxMDAl UyZdgAxgYJ8ePv2lVLRz LWNvbGxhcHNlOiBj c6tuFWBqDGvqNJ4zfUsh I3UkbBE2FSHvt3v3Eq31 dHI+LBAdZCY1sShpPXdw k512SjSre6hkAFK2 iIMtHYrhYWD1A86tf7A4 NCMzXIFgFAD5cWZ8lB4k rIszxssfQ5NutOSuPzT5 XGF3aTRiqM8zfUcb nlvgmA3vPpx+H97SUY2C FZEQAO2RBbl8C9DiNwqt dHI+WL57SSClSW74bHTp gTHeq8vmaCt2WsBs WDPaZWW4kBvkCTlhu2Bm GXFsB18nzVNch2N6AGAw jYnlfYSmCgSxzJO1hX5p NVtpklfou4mlstch Fyfzj7wwqt58wN85V05m JSylEQJsBLO3KQOvTSWu nVwebw3ybL4yMs0+IDxj e6iyg8wovKr6RxDy YSIrfsYufSfyXSQ3p7Ls Rt94N9PubKzei6OtGka9 cb87zWFlx6Y2aLU2FFoh GIFgjT3zBZwaNfI5 TIBrJeHzhK52kDInDSvy At2lzNpiyXveQI8nJVDo akaxQYXlhT7wDCQipGVx pDxqUF4zVEKeuppz x379UxHmCSK4ENVnzAMi T4PgcC5jCbZpPXGuCXPw C9EecXWdXIzwC823MGww KtF5XZEubaJrM8Qe BRFfjVbmVbV1l2R1Cb3C r0GpxfzfXZS8SLlqPNKe TbHtHtYlVrS8G3RdPxt3 RGHusXfhCF9hP0Io HYYygvoicklisFL8BJNh EZCwgL00sMRbCJssPd0z v3A4p657KSNtDVNusK11 Ar9lpYyqGZPvqWZZ uR2fliyvi7ezcyycMnDj EBFpJAw9VEq9DPHgwVfn LpAvAOJ8GrF9NQS7oACh yN2kvYxjyquxeR0w Oyc+U31uiJ9kZGA8EEK4 dhmmDLOwuoSmKR72DV90 C7ErEvpxtHKvjSP+PGRp xhAulMksCE9ySaBh c3qrv9YrYGosI8DxMIIi PRriUeq7MSZgOOT4kFZ9 xB5uKVMmJIilz1J3jVP9 Y2AsqnYjrg8yb7dl TWVsGRghD18fcCKrt1F3 IRPhoUQ3KHSsbTfhXxFd iP31Vok+NRFupEbsk0Ow Zhzsb6xmw5zgyPa3 IjMwJSIgdmFsaWduPSJ0 b4MmUo34Q43fCUjjHXSh RCNuIVJoLVXzjDtwqm3v rO1hQd9+PGNvbCB3 hGQ9qH2hNMAqFlM8YUya A670NzXsfBYjVshzj0gn r6emcOt2TlRzNJRyngQa lIafQTC2c1HwJw54 K24hOBhjYQIrWNYrRMCu DMOcmTomzn7hjA6hXy1+ ZX9om8bscn54rK49qGM+ DOZhPGW8dRjgHPtq VVEowN9kPBigXwS0CHJa WuAafI83mQEyAOwzJm0j eLjvrAdsPG8jFQAlmpbn j894YfDqb0xhXEVw sTAjVFjfGIU3R00rx6X4 EKJfJQQnFJS1tVO4oD3y bGlnbjogbGVmdDsgdmVy sIiwUWzvHTrcO079 IHRvcDsnPlBhdGllbnQg RlHnWFn8M7CeUoo3HBBa lHcyBC4qqLQdRNyhWe6a sRaeeWcoNR5fQQIt wjcdb530WpFqq1ffNSEy tDEvLEgrIOG2Z58jz9E2 VXMaGQEaIRR5dOJ3aB6s bGlnbjogbGVmdDsg xhFntTupEQblXZqwE171 IHRvcDsnPkJpcnRoIERh wFB6LS98UU35cBZlq8T6 fPQ2B3LjLXJajism quadvYN8NAUrKHNdkN55 Yg1siXrvTh5sZYHvSKB4 CVHzdOVeA1KufE4zMjDy QXEkWHBvH4IygAVq ZTqoS446IJezPyU7AQSu vjDfK0LfEBRikEfrSlX2 q8T7Kr3ZT6V3BR69DC91 uWFdx0C3aEK7U5Vt JAZgtguarjobiJP2IHNu SERpsR18Fx7iiGztBq9a DFKhVAS3UTKipGWuG9Fq jH8gWtXrOVFcYZCf Y7NuoJRgMSguD506CQzv GnT8JNWebvTxF8SnMZZf zDenEfJ5x0V9Wj4PSEg7 JS85HK34rAYuh2U1 wQY9Y7MrIPYndtracmjc bLQ7JLAdLKRedJ44Jk2n oWqbOc2oSOIfHDI2AIQg mNFjW8EmyG2sJaZt ZQVjKYNtN3TanVOvXRys A787DGklNxL6UPHzfhNs N0TdULYrnRyyBxD5m4U1 Kb4WFPZlNI94AGA0 oAR6RO92TX47C0UmXnyp dGFibGU+PHRhYmxlIHdp ZHRoPScxMDAlJyBzdHls RQ2bSa1nVSNpVKIp nRfiuUTjUbWud5dmQKUj VGjzVF5xlPnwP5FnhMR6 FEOxm2w7Tj21D66pL9Fw dXA+LRArcVT4rBN5 pA5oDoNzDjJ0YMojL717 NrFkcZVnLamms0gud1pz uBq1KoO8VTFhugJhlNpv FQB9q9AwJj75V42x IHdpZHRoPSIxNSUiIHZh lYfmbd9qoQ8lQb0+PGNv pFX5jII5jX0iPdIlKfA1 GIiiU117MfHazDFo Wdttd1aiu7eptTn6NqOs ZHRupeBwvJfwLVT0q2Yg Pf68R2ZkuNqam2AqOfe6 in37aXJza7O9qOT0 C0HnXFQezkuqxXTlxExs EK0oMTVhupugTFYcwC5l HZZqE4c8RjWsKoL5JZwn Q8OzppK8QXFzcMYt MEihMVJ6Z10jf4N3YLVa ECVoYSK9lMO3eM1qtQus bjogbGVmdDsgdmVydGlj QFsvUZbsO250AMMx aKshTEYllL0kGPPnrWUw wFpwTF9rWVJpuubmPyPK IUXgXIJQZGGCT4aVFIV5 J0IfKen8AJYwjKfk ZU4miWGpXPngJw8csXkt rWqwIW4rUBPnfxteLISu kC8aPJPatVBuxZhjRI1s PZTlnrutp359ZaWb PLT3DECciVQyB9BwkP6h TtMaLTNkTFGxB0DniWBb PJffE810FHmjSzI2FOUa xmXvI0ImHQLeaUtg GiQ1i5F6Tp7xZt1tIP1f FXB8KX65FN74oOInn0L4 xJE3F6MdIRIscluhnlox aQN2BNLdBKBovR21 wUJwUOyyQn7vg9L1e477 VDYkVPBjrI52Um0atLea JUKjkHJVqD3orjjfn3rx cjogIzAwMDAwMDt0 YRf1VYWvyNnvHoQhQWB2 NkZ0FKW1gGIumI2jmVnt ymytsV6hZpq+ODcgWWVh chM9M4XaAsa5XEUu iLpqFN9ubCDdSFjqXb1k yCspwYzvYT7cUZRhianl MKFjjB7tJBOloRJutXds ZZ1eODTxzypqg503 YqTwEJR0CDSmkEVwI1Vt fA2pUfFuTYDhNYWfH9Av eVNyLWuhL771GBjtLaY9 CTGscuKkA3WkQMOn lIjfZsN7c5Z8Vb5RTH3a cQI1I8WjWis1LQNkoQzh KQ3gjFPiLNikSp2fpGsf oMtiIT3tYHAmohqv QQFawT6aZOEoyRIwvNue EA0fLKYngwwhe948TrTf GPM0ZDIfaTApF6PdsK8t XxFsYISuSWPwD9Ll lRBwAGfcQ501XFzzYpU6 JWAuiiSfR9RhEESnqLuj KiJ6z2B0Eh8ZyRZzPDPx IT24TC02AT13K1Rj PjwvdGFibGU+PHRhYmxl IHdpZHRoPScxMDAlJyBz tIkeGA3oAs3gUOUsVWPe cInsgWPmSsKpw1ks SUOrGAonMU8smAceB8Gl qDR4KUEsm6i8Jo70V02b U4ImpYE+BTLmjLF0bQY3 mH4eYqYeRcL6MWde Y577GpPkqHPfWqout4ev h0dgnEj2CrFtRGZgxvVq hGmbTQB4z8PsGv75B09j IHdpZHRoPSIyMCUi RWUoiGkqut6ycI5bRa2+ XNBndTY0oHV1uI8jAuSq XjB7EHhoI446EjAllSKg XnpfY98hW4WdtTI+ MXTdGlj1DTZlvWvcYI1z nGUmYOmiSz3pIHR2YyUe YpLmUWsbT3ZuCKCmetzn pwjqaBE6CAUdQTJj qY28Ow7qeNwtDs7jPELp AHA1EWQzvDUjW2DnzS4v GtZjEIIgJHGjH9KduJSw JDjrJ016VVwlUdB0 DZHmtbXdR6VgFNDuiQmx FiF9d8N0Wk3EfNhlkNEg NQ8eBwRzILc8Q0KrRgf3 KLSzsHdlXP2fyZDt ZHcfPz1geTopwBswEW3o NXYbzvdvg750EmFvr0cl KUAkvBLoPLitJYT5B59p f2H2RNYtBYHkMPJ8 pNM9nQ6hyFfpqlfgwRVq dDsgdmVydGljYWwtYWxp W227WAMrtWmkXwRLKhc4 A8UuYng3JVUbnDbw SE6kjVJcDQqmLu1wiLtl mRqnWU4hMDOfokgjl643 ZcJas5rgGFGukGFwVImi DXC1V83kc4X5GRQx QIGlTFI0dEY6wC1upQql bjogbGVmdDsgdmVydGlj PWirDEzfR447LYUytBpr Dy2LMcf9W6JcQgm2 PEOvlVvfIA0mcKZgOXeu Cd7lhRjvnZgnIR0sEFCe artkj879HnRxr6eiSZPj uMZcUYzoGRN1L97y a1F9IGEkBJUdZSV6lML0 bH6dlWzhyfqceHHjcJub pxTnhTsdUErgKZyjA990 IHRvcDsnPlBheWVy OjwvdGQ+YB77zm43U7Vn FtfyGvg7SKQjQLR8nYE3 rX5uINZsCRapb6V8oWC9 W6RbmyOmad5rb4lq YXBz (more content not included)... Normal [facility] Consent for Treatmenton 09-05 Consent for Treatment [id number] #1.00CD:127 [facility] Holter Monitoron 09-26-2021 Holter Monitor [id number] #1.00CD:127 [facility] Coding Summary.on 09-18-2021 Coding Summary. CD:[id number]:[id number] Gh0bWw+PGhlYWQ+PE1FV ZCdF59odBMgmE1JY7zCF F6URXIHAPMILG4DEC3et IO5CPzjG1BxydJb WgbopMLkEX12EOo8ALJ7 kSyqQWawhP5jhSNoA0o6 AdKjFH14bS64RGdaRKIm WyC0GeEymacaeYZn E0rkYlAbzUZuQpc+PHRh YmxlIHdpZHRoPScxMDAl HxMscKiaOY6xFm1jISMj LWNvbGxhcHNlOiBj p4eaBAOdTKhnZZ8ryHig A9ExnLN3VFPia6w0Zw56 dHI+MIEjHWN4wVevAKvb w653YwBgf5pjYAO2 fZAlWNlpLQW1A67kd5T5 SVToCFOzFWG6uRK7zM3b cGdfahafE2RjrFFlNjX7 XLV8cTZujU3tcEmb jlzhgF0dKgq+Z25YBO6V JQCMQM0LAnm9R6VsSqer dHI+MY77VHSxMC18iQJg oNNtp7qwaFn2OkAm SMWhUYW0zTnvSFciu6Vy MBNsM07lqHVgc8Q8VNIz aZucvSNqVrIedEF1lL7k NHagfmlnq6ehyybb Cnyor5zpob74dP56U38f CUefQRJhEYV8WRVnIGIb wWyxxt2vdM8uRw5+IDxj b1fzc0flxRu1KfLl YDZclaLmzIldTWZ1f4Ua Cq53N0JyhGojw8AsZfx4 er73yKKve6K3uTB5UYmm VSHbfB0rZDrgOoN7 VLYbTmFiqP62nHQfHMhv Kc0ivWplmWlgVD5hRKFu wwaeZSYwqD7cODVttLPa bFmkDQ4kLVQqbldj e656ZiTuZVT5KUEakGFs C9VpjV7pDrFcMANjAIQv P0WuyAHeAMrpM249XIrj EdR4ROYnjbMjI7Da SFWylXneDgY8v1A0Qe9U k4IpcxptEOC6CGyeYNOu NiC6MwNkTdM0M1KzSda2 MBJpiLybFO4vE2Ro QSSazgpusyjgjIZ1WEOa LXJemJ65kWOhMCrbZm3a b7R1u185XUVqVQMnoM17 Zt6haWzjSGCamIFJ pD8hbspcx5alifqmSaPv VCXlSBl2GIe9TGBmxVza GaHnFJH3GxT0JUT8hXWd cT4fyLgptlenqV1w Oyc+C83lrF0pHYN6AED8 riolEHZcqnAsFW77BD37 K0SjVsnnvTFpfVL+PGRp mjSrcRitTB9mEuFa j3rcd5UaBHrxS5OzGFPf MSozVjw8FBWjCFL9hEI2 vR9lRVHeTPusr0Z1tLV9 N0RyfbNyqo3nz4dq YNZrKFxdF70pdWObj7H1 LORedIZ8ETDaiWepHqYo mY15Tjc+ZDTriVwzq8Ks Rprlf0dhh3azdAd6 IjMwJSIgdmFsaWduPSJ0 a0GoKu59B16xZTkuNBAf BJCnQCElEETanNrxct3b kI0tEo4+PGNvbCB3 qRH8aG1mRPQwLsY3BOhw I682XiLcvGOlTgbea8au o7dygGi1WxMcTITfewHe yIrmKCB3i7FeCc24 C58xSHvhRFKmBBBnDVYy XWMdaMhzry3zsT5bXv9+ DR5bx9txml36gI04yNL+ AZFfKQU0gBpuYJkv UGMwiP7cICbmKxO2LOGe ZwLgyF22dFKcCPpfRt9m pSuzxLabMR3nCKLhytnc q952NsDcu2veLWSv dPHoKQumHCR0A84iv9A3 OPSqIOVtPWA0dTU1vO2a bGlnbjogbGVmdDsgdmVy gNtmWPslPOrxW203 IHRvcDsnPlBhdGllbnQg FnIiTMa0V1FsNpq0VDRe lEqePC2aqBRaVPabKx3u aEttjCoyVC3gGKEs abuka342YlJsm1swJPEx xCHvZZguZOW9Q59jd1F8 SDAfMHNzXCJ0xFR8zK7b bGlnbjogbGVmdDsg nySfqFokPPvyCPqjK016 IHRvcDsnPkJpcnRoIERh oVI6YG63TD77vOPig3Y1 cQG4W3IfVBEctdpb evzhzFI2KOEyIXIsgD53 Hl9abOquKo6dEYLxHBG7 MHAeaWAqA3HmbI4rTwAd NIWvISQdK9KjuNHs QFowT484HWmjXoX4FPDd ciUzX3ZsFAJgbCnbTyQ7 j6P8Po7EP3G5TS67EP16 yQNxw1B0rDA7R0Ve GAKrnwuvjotlfBD1ETSx URFcsV04Mh2vyFgqSc6m GPNaWXM8LPYjnTTiN3Ax lU0fZmTiPEVqSGSi H2SsgPFpMPalG597SWgn JsS7HLUxraWiA2BzEWHb cTomXoY1e4F2Eo9PVOx9 IV26EL87fJVvy8O6 hXK4J9IfAAYtsasiwygu yXF9JCBzAGPyzV68Wh3k gYpmTi0mDZXeJWC1ZGAw zMSiX2RucK8aHdZo YSYxWGEbL3OhdFHdZBqv J692MVehOuS0DAHcxzCu R7NpQJQufFwiUiY2q6Z5 Ic1ORRNjPB67RNU3 gVW7PU29XE95F5PkItts dGFibGU+PHRhYmxlIHdp ZHRoPScxMDAlJyBzdHls HX8tHr4ePOAzAXSu bJksjSOpAxHbj3kaUIBy LYrxPA1yfShcR0ZmfSS0 BLYpt2e7Zn62X71rU9Cw dXA+WOJeiGD9lPO2 mR5vAcXwPoV3WSoyG587 VjRepZElGihgb7mvu6mp pPy1HcV6MTKnxaInhQfm QWP2b1QeNi80N16x IHdpZHRoPSIxNSUiIHZh kLnzbx4prJ8sEn1+PGNv bTY7nVS4bS0iNmXmTuC8 CJojY451DyQirUEi Kdslf4ejz1uetBt9SrMn JVHadySfqUupTRS8x1Pf Fc46V4NwaMvca3VtDwu4 ju67bSNiz8Z4aIW7 T3EeEFNrlktrrXNttOkc BI2dHFXdalbyNUOssP6z WBBfU9i1KeVpVgI9GPsf C0BftuV1FORezVDl AYxeONO5L23bn7J7ZCIv JMPjDQV1gQR7iA4dwUed bjogbGVmdDsgdmVydGlj PZovGOfbH034TRVy nUgyALFsoD2pFVSauERo zEchHH4vGRJjvzxjAtXA HJYkBJGNMHXQF6jPDRV1 X1UkNhu0IENpvQhv NX2yiTBdHIoaPn0ssReb yQzmJO9vIPFfuynfAEQq sE4lIBMmoJJlwIbtXB8f XUGeeztgg030ZuDb NFN7PHJotGRfH4XqeL7l PuGaCNBhNKLlL0TwoCBi YApgW772XVxdZxG6PMOy kkFnY9RlPIXnmNxf GrX2s0M9Iq5hEw8wLY7d BZZ3NW32FW04aLMjx9P5 lBT1I0ZyXOBgglhcqwvb nBY5GWDuQXAluU19 pYFvZOljLs0on6K7u371 IGMlUUIfsY01Ea6wuOvs JAQmvROKqI2fkzqoj4ye cjogIzAwMDAwMDt0 JYy4XIMhsPgoCtQoPNV6 PuD1UJD1cTSumS6ywBmp hmdbgN0xGrd+ODcgWWVh byP7Y7LqWnr9LDRn fGtdZV8mvZXwETbhCu2j nScabFeoWV1gYJLnxaua ESPqwY1gLOOeeIPtwIhi DR6kJHHatgidm165 SxEqLNO2TQQrlHRnT7Vp hM8kGhJkFBIoFTGxG0Ux gIPoMJdqL795CQeuCvZ6 YWXukkZlG9RdLKXp aJmgYqI2w7J4Ph9RFJ7o vTU4L4JlGfq9TTDonZdc DQ5qbYYzQMqeTu9rwIus gTclVP5mIAZvddqq KQTbpE4fQSEggVPrqDbi NS4hMYLcxvtvw830NrHc VYQ7FFVpjAAaZ4QxuX2b HzEfYVOjJVSbY8Hz pBHuJBomY435KHqdMdM3 JWPitdShQ1MlOABqzDro YhS5k7A7Wx9UdBMfFZLt ZD53JZ59UC17L2Bn PjwvdGFibGU+PHRhYmxl IHdpZHRoPScxMDAlJyBz uFvfPF1qQl6bBCBtQSNu wMooxLXmBnWfe5qy MQRkGMooQM0zaAtdU6Op dNX5JTXcd3e9Up89Z55i T7VltUY+TIDywCF0yUC0 mA1wEdUyTkF1ALkx J165RhEwaQHbTtlgq7hz m1nptHm8XfDwQDVithGh aWrvJDI7q9FpVx64P14y IHdpZHRoPSIyMCUi PAYewPmvcy8xaK2gBg3+ TCQhnBY0fUO4pB1gJyFy UuC2QYpbS520CaDgxNLl EyyxU67yS5RcrDI+ ARTuCdo5DARbyAdcUE8f rJPzEBaoAb2qYJF5GjQz OqExJKwuL1BoBZIdvsys radngPA6DHVyVSAt cZ17Cq4ybXstWe6lNUZj WFG0SSCwwFGvA3NlrO3b KpYdTXRtVWIxE1ZwbYHb CQgkU409JFobCyL4 UUGasuRcG7XcFHExaJod UoK0g3R9Bk6PfQxsvUKf VK1pRvIkOZs0B8LiTsi1 MKNqcLwbSP0dqVKs SBcqFd9zcTdiwIudWV0o ADItpvwau917DnUtj9sm TPCloCXvBXnhDDM7W46s s2C8IODdKWCuIKA6 gFB2qH3nsXboodxhqXRy dDsgdmVydGljYWwtYWxp O739TTPtgHyhCtNDOhc4 S4XvUxk3SFVwcJbw XR0lmPEzZYlbPn2zlFwu yVuqXY5rIXPpqnxqe967 WeTny1eoHGHurBDoOIeo FBZ1D79ib3E7AYNq KSTgGOZ3zRS4vV2knVaw bjogbGVmdDsgdmVydGlj LIkiKLevS726OJNrsLtx Qu4BLca8P8DqKsz4 XHWiqFwzYI1fgLEkJHzv Cd0fcAwgoGjiWV2ySLPc dbbva034OaGwy2ccIFSg wUCpPUdaQSH7S20m e5R9XXDmHTDdAUV2fDN1 zI2knImgfeysiZCbwPgq zzRsoNqhDHbhDHpcP974 IHRvcDsnPlBheWVy OjwvdGQ+HV07jm89Z5Vj TklaNgy9MPYuFGV0hGV6 cE4nEWXvLZhtf4Z8fGJ8 X2OzzdVpll2fk7rt YXBz (more content not included)... Normal [facility] Coding Summary.on 09-17-2021 Coding Summary. CD:[id number]:[id number] Gh0bWw+PGhlYWQ+PE1FV AMgV09wuREuoU4RQ5nYW A5QIMQALOREYL9LXU2dx ON9MKctF7XeqvSv WmdbhMRmED06IGy0YXB0 oZthOJgaoV8lnVCaL2i0 SjNtGT61jA98BVoyUYDo IcR5WrDytemvfARp U3jtZzLacBYzYwq+PHRh YmxlIHdpZHRoPScxMDAl TgIieMjqKJ7bLb3tNKUs LWNvbGxhcHNlOiBj v9aaDSIdMTzhWF3ltFzh Z1MuaFJ5ZZUko2p0Ha15 dHI+DKDsKGZ2zNmoRWna w202TqFze3whTTE8 sTKlCEotHUZ0I25rd5T0 TSKrURAjWJI0yRL6wI3s eBdkonpwP0LbuEFyVlV8 ZAZ4jKGotI0fkWsp svuapJ4vRan+I24SXX4K SXNSWJ3XBoz6M6NmVupk dHI+WR80TVLsDB45tYVj eZSdu3nrpZp4CcBz XULsPOI7tPmhXOrno7Xa AHJcF04miRMbz5H2ANEh sOktyEYxGwUiqGB4jQ7e RJdlfxpey6vrbzkj Herkd7zmoy80wD39V94o OLsfVRKwIVG5ENIbGXFd iOwomn7cgS2sIz7+IDxj d5zjz2hgjTc4QxUz KUCpesDcsIgsONT0t4Wn Bf08J1HtfBmoe2NwPss1 mh17pESzm8R8wTR1QUbx SOIpeR5tMFwkVyD9 MERxJhRydY73cMUoCLhj Mj9upSjhuBgrWO9nAXSz ukpyAMSivI6vGHFlyPDi eMlkGJ6zZFDykykh g632IbXbSOR3JJNawVZv V0IkdP1fChLwBVZsAGQl T4HuwGDoYWrcS080LXev KiK9OBPcnlBlJ0Bk ISCnlRfhMvH1y1T2Xn8H q5FobwlrRMA9EKwvXBFr CwX4MeDyVhI2A9MeZbn3 QLRopQjiVX5oO1Ei NQWwzihpywubtAB2FBRa MJVjtY47fECrBIlfKi9t z2D0x783TPDhCFEcgD15 Nk6noIbeKTHmcGEQ iM5ujvdvk5rdulomXjDe MBWrHMd9EGp8LCJxjXmb EiOmWOG3BzP6PZI7hVWa zA0doLnnmbrqnB7q Oyc+G68rnC7zQQV7LCB7 rxnjSRKcvhLaMQ30VM00 L5HhRovweQFbhRA+PGRp mkHbhTvrUR8kFgXj x4ogn0JzRAtgS4KrIXNq RXiyUch0UHSqKHY5wVE3 zA7kNBSsWXmmq8B7bPJ3 Y6WgpdMpxv1ep1mn MHZmKYvzF78kbWSzi4T8 RFKvcYE8CCFaqApaBlAk zB98Rxt+NJDhhFhxi5Vl Ufxvh1sub8cyvZg2 IjMwJSIgdmFsaWduPSJ0 w5WuEb54K45gRZsbDMUg DGCyVZFvEUEldDxwqf9u aA8aJr8+PGNvbCB3 jDT6pT5fXWHdBgX4MKnh B344OjFceHBlJsyau9ds e1elzVh1XsYqGHLsqePc sPuyOHQ8t6OfPx66 U81yARdfRDHmHNUjKZPr BXWwdQcfzl1gwW5qUx6+ QI8ul0ngkc05pN31dID+ IUIyHGR9aSkjVDgq BYNcrE5rNIicEkO8WMDp IqKvbE50bVCyHZnbKr4s dMxflIlqAK5pLPPjwhfm o396DnWol7xrTAXd wAVyLAltWDX5Z21qp5L4 VGGbXYVjXDG6pFO7pF4t bGlnbjogbGVmdDsgdmVy cOikUTuyMHlkT896 IHRvcDsnPlBhdGllbnQg WfDaYIj1A4DmBqi0RVBi aUerXE2niDVaUOdcCj8i wAydoBaeJP8mCGJy cchtk515DvOtu2bnSPAs zKVoSWkqQAD6M36hs9F7 YBIfIOKnJKW3lRX0jG3n bGlnbjogbGVmdDsg rePgwXgxCGleGVxiU844 IHRvcDsnPkJpcnRoIERh jHN8MC48XJ72eIFxt3W6 rVW2X9GxFBLlmtlq ousiqYQ1MOMtPTGqfI93 Xe5xkOteEj5bTOZhBYE6 GFXoeZIfB0HydR3iYxJs SIUvTFBrM4RtjXDi CFidS782XTniIzH6RXMv ifIpX8YxAIWnmTesSwQ4 l3B0Bb2RK5K6VD65JP96 pRFxm7G1sOJ3I2Fy NTBgxbtzinnmpIW3HBAc OHPhxQ67Gc3ayCioHg5v UKQcLJM9IEGxkGSdR4Pv dS5kEeTxTIOyFWZe W9VqmMNqVYztP633LLhn MwU3VLPtthXtC3JaHTUf eEmwSvP0w3U5Ap0KMZg2 DH30RI39oMKfr3B2 bTC3U9OtUNLzzvhagpkz nJF4OKNeHLSyjL58Ct7q tXttFj1fQCJsBXK8ULTo kGNsS1HcaY8zOaQt SPQhHDNkR9KbuQYfPAzg K685QIanIeO9JQMkseKc Z2AyULOfgQbsCyC6b2F3 Yz6SYAOfUH47ERJ7 gNM6MR16BI37Y6VqRkgn dGFibGU+PHRhYmxlIHdp ZHRoPScxMDAlJyBzdHls BT1dHy4rUMEbCYXn nGvzkXSuHlKfc9ksSKVb IQbfMN8ftDmoL4ZndDQ2 RDUsh4g6Xi16Y06mQ7Zp dXA+VTRukWC6pXO2 kR5pAsAjQtI1GOdyW688 HnVzgQDzOyzxi6yrs1nf cWt8MwS1QXTxeiNbhYlu CXL7f0LmLj07X41d IHdpZHRoPSIxNSUiIHZh dTlpdw4luN9kQw2+PGNv iTH4rQT0lW7pYvBmXsM0 EWmsJ157KfTzmYKi Jaoin8yii0fvqEk2FwOa VOPjmpAskTgpKKT8f5Ls Nx87P3JsrRejg5QbRsk1 ig08rLPgh9P7mRK0 W3TaXTCqjzydfZVacVaz QZ9gJTGklhunBCRkjT3o CUGmR7o8WxOnMlZ2HKbg V8KgikD7PAGqxMFv KOdsZEO7N76si2D1XZLi NWLhSIF9eSL9eK9qtXru bjogbGVmdDsgdmVydGlj LXilBQsvN953EEJr hZqoOHLioX0qFBNjxYLm sWesFJ5mFYNyisssTkPT ITHvGYMGCEHRP1bCUFE2 K7OuGzi9ZCSliQaw ZI3bnGNqEVcaRl8rvPti rBczLR9mZEAiwidcDRLc qI0gLSAewTOneSzyFM4m AHTuaeaer588BkMk MST8HPMleJTnI4WpyF1v HsQvNTEoTKJgW6VugYOc XCwmU558ZLyxObH6YCFn jkSaK0DoOTWpfRbb YfS9i4B0Ne3eOk3yUS5s HNP0AH73VK72rZEvg0Y5 aOD3Q3VsLYZkhhntkfmg cTR7KFLoSHIssW75 wJCjPSnlKl0qi0V1o494 LVGyXDJiiF67Mk0dsKsw WBJwfFDJrM9wuwyxl1vx cjogIzAwMDAwMDt0 IKb8ZVPgfHxxXyNhAQA2 SlA9LMQ2dWOmbK8viGdm tfckdJ9dUmb+ODcgWWVh unZ6F6GwRon2VLLn aCgvKU2vqJUqNSgmQe1t fYqimYjdZD9hBZRdrgng JGFuwF4zOPXjrHOyoGhe MV0zJKWdwjohl021 BtIiJQC4QGFrjNPaC4Zy fV1lJkEhBUTiMNKcK0Rr nZNwKSykZ912RJtnYtY5 UKVpuuCbN4EcCNAm qSljOnK6k4O6Gp0RUS2k uTH8W9KpLlc1JGPxwTwl HR3zyHIfFEazRe8lfIto aGiyMG7mTJAosmsf LGLtfB2eNSYyrKXxoHcd LF4oEMCiahxcz856YdCp OAU5EWTbcJIyQ7JdsO1d MhNrXQOwBRMoV6Qp iGIzWIabD346UTqaFmT5 YLYifmGeE6OyJFTreUkc NjF1p7L7Wa4YcBErRXOz WG67YW06QK29D5Gw PjwvdGFibGU+PHRhYmxl IHdpZHRoPScxMDAlJyBz eXqvGV8tQe8tBASwOYLp qNwplIBrLjCjm7ny WFWzMBdeFD9lbDlcW1Iv sKA3XQKfw2q9Aj57H28e E9YbxYU+FSJdnNH6ePM1 hD3pTcXjIhL4HQzs A436MjTjrXWsOvfod8zm y7agwWd1CtGyFNFabaLl kUpjDOO4x7LsBv07V21l IHdpZHRoPSIyMCUi FKEobQlqtv9giF3wNa1+ FDPvdRX6tFF6tP2oJoBh XkI4GSufC061OgWrzXAw WvqrN48fH2HnoNU+ BLKcQcl4DXFgnRvuAL1w oYFlPJiiIb9yTNC1JkOr PeTjYEpaF6HeWALjystx innemXE0MSQjILLp uL41Gb8ngVfsAa1gTIJl DVU1YURajFOoG4QyuB5i QeSyBWAoUOXzH9TseDEh ECdrJ338XUxlCtO1 UNAehtOyL8LkFJKtxWbd WbD6v8A6Jy6CxNcdvJIx JH0mAjKvGLn2N7FpYfq7 LMQigOrnVY1emISr ASpgLd9pvNyvuMjaNM7a UFPdndifb122BwGiw2bh WOGkvAYkTByuROH4H52s k8B2TORcUJOkUBO9 vGC1xC8xmMlvlrwzqHZg dDsgdmVydGljYWwtYWxp U223FTMnzQhxHlAFFou9 E3WlWao9MDWykAzn SR7nhAMdPDofDl5yoCrn eCchMX7mVEBowmfad582 NdKvt4mbSXMpdTDzAOll STM6B60vr3U6ZUWx SRAqEOB9fRK4pH3hyQoi bjogbGVmdDsgdmVydGlj OAqwNDooT543NEEwuMsu Fo3QVmh1S0DyXts9 TIBylUznJM7gsVVtJEgw Ae3vnFrpoPcvSN5zMFFa iyseq479UbLos4vgACTr wMWvMWeySBL0U77q z3H9YGXeRSAdXVN7qQF7 aQ2egTuhtvmmnZSzbWwv zjQuuRkvJUeyZKscF122 IHRvcDsnPlBheWVy OjwvdGQ+VG75zv59F9Bj BmhaYpl1YMRdIXN4dOT7 zO2sVWGbPQnsx4E0jLB6 V8MocmYxla9vc6pu YXBz (more content not included)... Normal [facility] Consent for Treatmenton 09-04 Consent for Treatment [id number] 20 [id number] #1.00CD:127 Normal [facility] Vascular Office/Cl inic Noteon 09-13-2021 [...] intact- no rash or concerning lesions Procedure [facility] 03/11/19 IMPRESSION: 1. Physiologically significant mid-left anterior [...] artery disease) (I25.10: Atherosclerotic heart disease of [place] coronary artery without angina pectoris) 3. Paroxysmal [...] Given SARS-CoV-2 (COVID-19) mRNA-1273 vaccine 09/12/2020 Recorded [facility] SARS-CoV-2 (COVID-19) mRNA-1273 vaccine 08/14/2020 R (more content not included)... [facility] Comment on above: Result Comment: Elec tronically Signed By: Angelina SMILEY CNP\.soledad\Date and Time Signed: 09/13/21 15:15 EST Pre-Certification Formon Pre-Certification Form [id number] 202 [id number] 3#1.00CD:127 [facility] Progress Note-Nurseon 2021 Progress Note-Nurse [id number] 9#1.00CD:127 [facility] Consent for Flu Vaccineon Consent for Flu Vaccine [id number] #1.00CD:127 [facility] Family Medicine Office/Clini c Noteon 06-27-2021 Family [...] artery disease) (I25.10: Atherosclerotic heart disease of [place] coronary artery without angina pectoris) stay on [...] vaccine, i (more content not included)... Normal [facility] Comment on above: Result Comment: Elec tronically Signed By: RYAN MAYERS, Janna Bhagat\.br\Date and Time Signed: 06/27/21 16:03 EST Coding Summary.on 06-21-2021 Coding Summary. CD:[id number]:[id number] Gh0bWw+PGhlYWQ+PE1FV XHmW07axZAuzB9PQ6rWF R0ZXIFTDRUVOA6JKM9of AX0NHuoU4XlqtDz AhbasEImHE13JPe5WQE1 cFsbUEyuxH3crKPkD5y6 SmTsOR12nC99YWkmDJRy OjF5PoWcubmgyWYr P6igBpAscOOnSrl+PHRh YmxlIHdpZHRoPScxMDAl EkTkjAqoDZ1kXo8pTTSw LWNvbGxhcHNlOiBj b7ztOHSaOOekQP9twYei M7DpsWI9JQMhp9s9Tw47 dHI+JXVkKNG8vDzyGUna g037PhCxe0qsCXO8 sWPkOXhbPRB9R42ko6X9 NKOiJGWaWYK6rUQ1eZ2u kDvzjsbtI0XcqLIiAvA2 ETQ0oPXzjF6vaLin mxaelI4bKsr+X49FRO8W RCPIBD7TMld5C7VuGmgl dHI+ID99VEAmDY89nNWk mDGfo7kkuJb4YkCn VVFnPQL1gBtqUBkyr4Fp XLRcG26zzREwx8L9YFUm yWjcfRKhAcPcyWH2hF7p TFwmgkwug4foxvxk Afjxq0peva28wD18X57t BJgsEGGrLQJ9KAWhHINa yCzpnq2myT2eYt3+IDxj b9yei3snuEf6FyAw YISanfXukBvsXZJ6e5Yj Ry81W7KuqHwrg8YjTrn8 am20rWCca5R2jRR0RZny AQRftV4fUKdlDlS3 QCXmLmLavN70bAJtYRji Qi4glCsksPblIW4qGYKg qjgeFLEgiJ3iSWUdoVVk nEqgMZ5eYAIcaiof k213NuAyMRH9LAMilZMz E1ArhY3rQoQbTBNkVLAd K9YhoSKiEZixS561TPpc FvD4KAPbjmZmO8Ij PWZhcCmuSrA8h6B0Ph0G s5ClhxopIDR8FPvgNVIy GmV9KmRhAjX0A8HcGbn2 ZKHisRmjLV0fM2Nm FWKkfobdagjhwGD4HHHr VZZbwY01tTYuLLawYs0k i6C4g065YCGaJPHmlC14 Pa7gjOcwOJAktLQL gW8vjhdov5gwwlmrMoDd NNOkXFg5KYm2XONbmSph PgFfGLT1KyQ1ZTJ1hEXs bG9pjNefpqtdhP9u Oyc+Z00ccF3uNZR5GPM0 wntiCWGliaMtJO29VA39 Q9QcFrgjlZCqyCE+PGRp gkGgeKvzVN6oTnMw k9qbu4VzZWxrU7LiPJDt WSpzUha9VDMzUWE1fME0 nS2vRXXqSPovc6Z0xQI5 G0KfouRaaa8zk4co KEPcTAraO42xqMUfk6O1 ZRJfbRO5DAXikWipMfOf aM06Kxu+IQHveIxcr1Yd Lunid3lxz2tsqLm5 IjMwJSIgdmFsaWduPSJ0 a2CiXq38B89kLRcbBWQy XOZiFFEpVCFweHbgyr4h bV5tGy3+PGNvbCB3 jVU1gB0wSKMdHtF8OZbl K916VtDfaFWcHlitf8bf f6kwgIv1HeXjEUYyfwXn dJxyPNE9n0BeIb12 K21kAIoiJVRnIJHuYTPi BMNxrQthlq7gnM8rUv6+ IG4sj0tord48xY06lOC+ BEBfQES6hAzsCRbe JDCtlX1hMXovZdR6OEKq TkGusC74gGCcLBnpXz3u jTtshXwwEX8yXZQmruvp t817CgGxq7opFQIw dPEqLVdhQOS6S30cq6D5 HGCdMGUmPQB2dFN1zK1w bGlnbjogbGVmdDsgdmVy rUtgMWgpIVbhH659 IHRvcDsnPlBhdGllbnQg AhTzDDn7B3StJfo6ISZi oQjwIY6ylHDrYPjwWl7x fVjzrMjmWU2jVDMj glrvc270UuHfw1kgXHFm rCZhHPbgWUO2F56nh7W7 BPJxQKSiYYE8fEU9dG4j bGlnbjogbGVmdDsg nvIbxOmxJCuiNLvmS018 IHRvcDsnPkJpcnRoIERh iKW5AP04MT81tJTak3I0 kCJ9M1GxMPBdftii kyrkkPH3XZOcCBCsoP10 Uv9cuVuqSy8mEHMiJIX2 VNGajTMwZ1HqvG5wOtQt IOXoAIVaT5CoyYZl UNbyQ990DKayNoA4WMGk xtWzK9IhOAKbsGotWfJ2 y4N2Cj3UY4F9CW05SQ61 qYCai5U1qLS2Y6Xz XZYfwjaytvtpxGB7TWZy BKNauM71Yj0zuCidYl7z VPMcOBP5QILyzOThK6St wT3iZjSlFFPlOECd R3ZwaUXuQJdsN171YWus YuM6IGJqtzOoM2SjKFUs vMzeRxF6h2J8Dc9WELt4 RC99KV61sKYfy8G9 wEF5K1ByYVGcjpuuuqnt xJV2ERLoJRBliO00Gj4z zFmsMz4tTYVmWSP5BDIh mVXzB3EnjK4wSeDr TSDvZDJoA1GkiXDuRXgf Y114OFfzVhV8AVAskrEm N7NlDQUenIukKnV7e1J7 Rf1GTESfDK08OHD0 fGB7AB20XU95K4VcMetu dGFibGU+PHRhYmxlIHdp ZHRoPScxMDAlJyBzdHls FO7iLk5gNMFtQXMv lRfujFHnXvTto5bjQQOs CKwxVG9mxYjzH0MydQP1 DHTet2d7Da58D41hP1Gf dXA+WZHzrHN2kVZ8 eA5sKeDqSmF0NYpuA310 OiNnkMRmVozza9uph2ru dMe6PtC6DOVbkfUgwCkb UJK8g3IjTp23Z61o IHdpZHRoPSIxNSUiIHZh bTmnyt1drK3vHm2+PGNv eDT0oXI8oS6oQcBqTsR6 FRpfB368RiBmmPNp Zknug7bqk6eenEu1LhUy UACekaBdvVauOLP0h2Vb Tj00M2VyiGczd4IwDhg7 be06yWZel8C2gPN4 P1CkVQQfhqdnvTWwjHdv ZC9vYTFegqcpPXLfgQ3m NSKaA0d6AzDrJrB8BWwq F1OwmhJ1BICwnPQg IYhpSIY8Y17eq6P4UQQm WBYhYMJ3rYF5zV1qtYly bjogbGVmdDsgdmVydGlj GQepHXwwY926RPOj iBsjYNPbgU0hYBZgnUQl bFeyST5bPLCqddznJrSY TCVzRLJQSQJSL1xXWUU7 H6JgPwu5STGrzWtd EO6viGEdDErvAj9jkEya xWttRP6mLHRwgvdgSQSw uA4kJXRrdAAjnHlkHQ0b UFXntegcv706FbJo RCU4YFWguFEdO8DjiI6i LqVcKDHwTQWcV4XxgKRq NXyoU451QKlhRlA2QUZm heHuG3WnIIBlfAnv XcA1j8C4Lp2cRm4nTG2g OSB2NR36CM62vVTpc9B1 aZK9I3NkVONblqcarqzf vAC4XKUnCNMpnF75 nWZnZCzzYh2po4Z6d219 AZZtBAPgqQ74Mf7lbLlx WHSqbCDByJ5jpztzr3to cjogIzAwMDAwMDt0 VHm2WNVzgEchOkKmAPF9 WsW7QCI8iXVmgS2iuQku zzcaaH0sMse+ODYgWWVh naQ4X2AiIjd3UOBf bCmmZY2nrQFwHMqrDt2z iNhkwNksPQ8eKHUqknbf WKTwmJ3sIJFkzEAziDsi QN0hCOVvzsjpv971 DsTnBPS9MWKwyIKcK4Qt yN7rWhGbLMTbIEKpB7Mu kQRyIRrmB678LPdwUjQ4 MKWfrgKqO4VkGQXp uYbkGpQ6k8F2Bj9CTA1n zPE2S0NiMrg8ROPypMsz FU8uuCHeHIplLd6anTvw qIehQC3cJAKwdapv YGXzpL5lCAUqpBTwtYbo DM1yTTDfitimp045RbNl SLA4AORakEHuN3QgsY5v PiHmBSQcFCKwG8Yk fBToDYiwA175XYazZyB1 GGBbmgNeU7PxTBRamFxq AlW5f3P8Pp5ImAOlWISr ZX14AQ09MS71A4Cf PjwvdGFibGU+PHRhYmxl IHdpZHRoPScxMDAlJyBz vTqxBC4mUo8uCLBjIICx qUqyxYKsDcNev4fz MVMoAAhkRP7tkWzvM6Mm mAC0MSJii4h4Aw30Q74m G3MniCR+ICWqiQZ1rKP8 vJ3kWiIlHxF4HMcc F767KqIhuTQaTsoal1zt d9cdhOf0NhTdIXUkzcJf gUntLKG7k1BsYk47A47s IHdpZHRoPSIyMCUi VRMkxRnala0ksB7tZv1+ DZYsgLC5qKF4mT0cYdGz GvN9BQyrT538YoFzhUHw BtqpT41uZ1EpuAA+ IDOrYup5AYDsnKvcYB4d wLPbYBvlMa3vHGM8GqOm TzQtXScvR8VxIMNftdym kpcoeYQ7EWSzIOUk fK91Ax6tuQaxNz0qKLPk OZQ6FFQohZSkN0FjkO8q PoAaCLPmEDZmF4ZfjGHw QGkcK926OLymIvO9 ZLFnrgSfN7DgVNSzrYvm ZaN8n2E3Ev9YeLgxmQIh RG5lEuOcTWm9T5TaBey4 TXQyoNxqSF0ubXAg CLjtYz6pxPnilJakMJ3f FUQobufpg198KeZsj1bo NEAyrAMrXRuhBOQ3Q05x u6U5UISsSEThPZD2 uHC3qO5hoPvtftugwYMl dDsgdmVydGljYWwtYWxp U551OJMjdQrqGmMZJlr6 V4SfOmy2LJVsaXtq TY0yhMUzPIltSr4isCaz tZrjIZ4rICPioizbg810 KySae1gmUNQjvUKqXLdg FBJ0G30qb0I6TWXj XJZzWYP9qXY8wL5iwApy bjogbGVmdDsgdmVydGlj BJyiTAcfL016INQymLso Gg4UByj6E2KeMhh3 KNFjhRvjYI5dfWOxIBti Ut1fzKnaaDrlOY5dQDMq ejhno518EoXvy0ysQEHr cLZdUSdjBVW9A27u d0Z9TMPbHWOjHDK9nXI5 bB5kvSxnziultRGcpOdo ofDwgYarOOxlOMgsF101 IHRvcDsnPlBheWVy OjwvdGQ+KB10xs51O9Da VjsfAcf2EHQyJAN6xKV4 wX3tPSJgTZtwl4J1zJX0 G1BlrbScqr9dy2lv YXBz (more content not included)... Normal [facility] Auth for Release of Medical Recordson 06-05-2021 Auth for Release of Medical Records [id number] 3#[email or web address] Normal [facility] Auto Diffon 06-01-2021 Basophils/100 WBC (Bld) 0.9 % Normal 0.0-2.0 [facility] Comment on above: Order Comment: Order Added by Discern Expert. Performed By: #### 2 533406, [id number], 9061909, 8698040, 3921647, 4753086, 6186663 ####[address] [address] Basophils/Leukocytes Auto (Bld) [Pure # fraction] 0.0 E9/L Normal 0.0-0.2 [facility] Comment on above: Order Comment: Order Added by Discern Expert. Performed By: #### 2 701412, 298115187, 0335370, 3391543, 8183168, 6841966, 1032091 ####[facility] [address] [place] [address] Eosinophils/100 WBC (Bld) 2.6 % Normal 0.0-8.0 [facility] Comment on above: Order Comment: Order Added by Discern Expert. Performed By: #### 2 283191, 970786076, 6372978, 6163467, 1758704, 8901760, 5512994 ####[address] [place] [address] Eosinophils/Leukocytes Auto (Bld) [Pure # fraction] 0.1 E9/L Normal 0.0-0.5 [facility] Comment on above: Order Comment: Order Added by Discern Expert. Performed By: #### 2 440241, 623614718, 9932972, 9630566, 9337453, 1372980, 9025031 ####[address] [address] Lymphocytes/100 WBC (Bld) 37.9 % Normal 14.0-50.0 [facility] Comment on above: Order Comment: Order Added by Discern Expert. Performed By: #### 2 928650, 109890468, 9711439, 8304314, 8820278, 8928911, 0231158 ####[facility] [address] [place] [address] Lymphocytes/Leukocytes Auto (Bld) [Pure # fraction] 2.2 E9/L Normal 1.0-4.0 [facility] Comment on above: Order Comment: Order Added by Shelley Expert. Performed By: #### 2 700208, 267272813, 1224656, 8657587, 9280541, 2891772, 2942042 ####[address] [address] Monocytes/100 WBC (Bld) 8.8 % Normal 4.0-14.0 [facility] Comment on above: Order Comment: Order Added by Discern Expert. Performed By: #### 2 763773, 798311454, 7546217, 0271792, 2170156, 2453982, 7337301 ####[facility] [address] [place] [address] Monocytes/Leukocytes Auto (Bld) [Pure # fraction] 0.5 E9/L Normal 0.2-1.0 [facility] Comment on above: Order Comment: Order Added by Discern Expert. Performed By: #### 2 033857, 334006198, 8808523, 0010079, 7367621, 3488493, 7623465 ####[address] [place] [address] Neutrophils/100 WBC (Bld) 49.8 % Normal 36.0-75.0 [facility] Comment on above: Order Comment: Order Added by Discern Expert. Performed By: #### 2 161407, 428636024, 1937824, 8650719, 6858208, 5809617, 7751244 ####[address] [address] Neutrophils/Leukocytes Auto (Bld) [Pure # fraction] 2.9 E9/L Normal 2.0-7.5 [facility] Comment on above: Order Comment: Order Added by Discern Expert. Performed By: #### 2 327236, 369234205, 3502058, 3181050, 2600008, 1503823, 2731318 ####[facility] [address] [place] [address] CBC w/ Auto Diffon Erythrocyte distribution width (RBC) [Ratio] 13.0 % Normal 10.9-14.2 [facility] Comment on above: Performed By: #### 2 819112, 442206986, 7984498, 9842204, 1117875, 1502687, 5530063 ####[address] [address] Hematocrit (Bld) [Volume fraction] 39.0 % Normal 34.0-46.0 [facility] Comment on above: Performed By: #### 2 547766, 403120781, 5130339, 1688572, 3338953, 9530559, 5751953 ####[facility] [address] [place] [address] Hemoglobin (Bld) [Mass/Vol] 12.9 g/dL Normal 12.0-16.0 [facility] Comment on above: Performed By: #### 2 180054, 207372320, 8870248, 9101980, 3333133, 9361218, 3549644 ####[facility] [address] [place] [address] MCH (RBC) [Entitic mass] 29.9 pg Normal 27.0-34.0 [facility] Comment on above: Performed By: #### 2 007922, 287511183, 1049933, 6799381, 6606395, 7293982, 0087747 ####[facility] [address] [place], [place] [address] MCHC (RBC) [Mass/Vol] 33.0 g/dL Normal 31.4-36.0 [facility] Comment on above: Performed By: #### 2 960821, 294301489, 9994499, 8629286, 8797335, 1214718, 1869502 ####[address] MCV (RBC) [Entitic vol] 90.5 fL Normal 80.0-100.0 [facility] Comment on above: Performed By: #### 2 487549, 917217226, 5506676, 3296478, 3680787, 6362721, 6167580 ####[address] [address] Platelet mean volume (Bld) [Entitic vol] 8.6 fL Normal 6.4-10.8 [facility] Comment on above: Performed By: #### 2 989722, 576186513, 2585292, 8707383, 5850863, 2395434, 1964670 ####[address] [place] [address] Platelets (Bld) [#/Vol] 206.0 E9/L Normal 150.0-500.0 [facility] Comment on above: Performed By: #### 2 100247, 656640688, 1711158, 3324357, 7513401, 0712001, 3387880 ####[address] [place] [address] RBC (Bld) [#/Vol] 4.3 E12/L Normal 4.3-5.9 [facility] Comment on above: Performed By: #### 2 866102, 124610767, 0185565, 0824968, 3884317, 5332934, 8498991 ####[address] [address] WBC corrected for nucl RBC Auto (Bld) [#/Vol] 5.8 E9/L Normal 4.0-11.0 [facility] Comment on above: Performed By: #### 2 819901, 842214912, 3632497, 4165190, 8428020, 2738966, 1888037 ####[address] [place] [address] CMPon 06-01-2021 Albumin [Mass/Vol] 4.0 g/dL Normal 3.3-5.0 [facility] Comment on above: Performed By: #### 2 978152, 548800871, 3850420, 7472247, 9734865, 5621363, 5176608 ####[address] [place] [address] Albumin/Globulin (S) [Mass conc ratio] 1.4 Normal 1.1-2.2 [facility] Comment on above: Performed By: #### 2 750488, 905668142, 6751161, 2076125, 9884057, 8476286, 3972765 ####[address] [place] [address] ALP [Catalytic activity/Vol] 64 Int._Unit/L Normal 21-98 [facility] Comment on above: Performed By: #### 2 192361, 836181721, 1637483, 2936457, 4059482, 6582715, 3621633 ####[facility] [address] [place] [address] ALT No additional P-5'-P [Catalytic activity/Vol] 27 Int._Unit/L Normal 6-46 [facility] Comment on above: Performed By: #### 2 033453, 537903296, 1787862, 8558797, 5602224, 3900418, 6774102 ####[facility] [address] [place] [address] Anion gap [Moles/Vol] 12 mmol/L Normal 6-16 [facility] Comment on above: Performed By: #### 2 457355, 168226452, 0486878, 4436678, 9163170, 5321691, 8829269 ####[facility] [address] [place] [address] AST [Catalytic activity/Vol] 25 Int._Unit/L Normal 5-43 [facility] Comment on above: Performed By: #### 2 842660, 171893396, 2131170, 5044726, 2992960, 7909412, 8585329 ####[facility] [address] [place] [address] Bilirubin [Mass/Vol] 1.0 mg/dL Normal 0.0-1.1 [facility] Comment on above: Performed By: #### 2 917692, 339822475, 0815882, 0606776, 8971056, 8056847, 3857027 ####[facility] [address] [place] [address] Calcium [Mass/Vol] 9.4 mg/dL Normal 8.9-11.1 [facility] Comment on above: Performed By: #### 2 719667, 400830903, 3936922, 3145210, 2660422, 2886223, 2771550 ####[facility] [facility] [address] [place] [address] Chloride [Moles/Vol] 101 mmol/L Normal 101-111 [facility] [place] Comment on above: Performed By: #### 2 [id number], [id number], 9696916, 7950034, 5780007, 7559668, 6813509 ####[facility] [address] [place] [address] CO2 [Moles/Vol] 30 mmol/L Normal 21-31 [facility] Comment on above: Performed By: #### 2 076393, [id number], 9507378, 1513484, 6487928, 4572669, 6193503 ####[facility] [address] [place] [address] Creatinine [Mass/Vol] 0.7 mg/dL Normal 0.5-1.3 [facility] Comment on above: Performed By: #### 2 740463, [id number], 7997534, 7565871, 0650366, 2829978, 4550610 ####[facility] [address] [place] [address] Globulin (S) [Mass/Vol] 2.9 g/dL Normal 1.4-4.0 [facility] Comment on above: Performed By: #### 2 395536, [id number], 4082546, 3064474, 2217437, 8124415, 6693527 ####[facility] [address] [place] [address] Glucose [Mass/Vol] 124 mg/dL Normal 55-199 [facility] Comment on above: Result Comment: If t his glucose result represents a fasting glucose, interpretation should refer to the following reference range: 55-99 mg/dL Performed By: #### 2 524845, 195340210, 1389734, 3545668, 4768773, 8485902, 2010974 ####[facility] [address] [place] [address] Potassium [Moles/Vol] 4.0 mmol/L Normal 3.5-5.3 [facility] Comment on above: Performed By: #### 2 413478, [id number], 6602872, 4006188, 8158683, 1451922, 6645977 ####[facility] [address] [place] [address] Protein [Mass/Vol] 6.9 g/dL Normal 6.0-7.8 [facility] Comment on above: Performed By: #### 2 246988, [id number], 0808585, 7680788, 4279544, 6235538, 8884195 ####[facility] [address] [place] [address] Sodium [Moles/Vol] 139 mmol/L Normal 135-145 [facility] Comment on above: Performed By: #### 2 897602, 078198850, 1583297, 3647459, 6939184, 9620481, 5358407 ####[facility] [address] [place] [address] Urea nitrogen [Mass/Vol] 21 mg/dL Normal 5-21 [facility] Comment on above: Performed By: #### 2 529033, [id number], 2138373, 9113467, 8744719, 3900379, 6427935 ####[facility] [address] [place] [address] Urea nitrogen/Creatinine [Mass ratio] 30 No Units High 10-20 [facility] Comment on above: Performed By: #### 2 329835, 834286397, 8044631, 6448314, 1635102, 3412826, 7443901 ####[facility] [address] [place] [address] Consent for Treatmenton 05-05 Consent for Treatment [id number] 11 [id number] #1.00CD:127 Normal [facility] Free T4on 06-01-2021 Free T4 [Mass/Vol] 0.86 ng/dL Normal 0.58-1.64 [facility] Comment on above: Performed By: #### 2 648365, 876256807, 9371788, 4955835, 2326503, 1328800, 3693288 ####[facility] [address] [place] [address] DfvY2jqt 06-01-2021 HbA1c (Bld) [Mass fraction] 7.1 % High <=5.9 [facility] Comment on above: Performed By: #### 2 280282, [id number], 2063647, 6524390, 7123659, 5975894, 6155372 ####[facility] [address] [place] [address] Lipid Panelon 06-01-2021 Cholesterol [Mass/Vol] 169 mg/dL Normal 120-200 [facility] Comment on above: Performed By: #### 2 196783, [id number], 8300658, 9734898, 3418484, 7849685, 8321581 ####[facility] [address] [place] [address] Cholesterol in HDL [Mass/Vol] 50 mg/dL Invalid Interpretation Code [facility] Comment on above: Result Comment: HDL > or equal to 60 mg/dL: Low cardiovascular risk HDL < 40 mg/dL : High cardiovascular risk Performed By: #### 2 479116, 744690373, 6194834, 5443097, 2705743, 3517478, 1438565 ####[facility] [address] [place] [address] Cholesterol in LDL [Mass/Vol] 90 mg/dL Normal <=129 [facility] Comment on above: Performed By: #### 2 554680, 644485946, 3737669, 4206174, 4884072, 9242458, 8669742 ####[facility] [address] [place] [address] Cholesterol in VLDL [Mass/Vol] 18 mg/dL Normal 7-40 [facility] Comment on above: Performed By: #### 2 672001, 564448506, 8584340, 4497593, 8212844, 2527951, 6148205 ####[facility] [address] [place] [address] Triglyceride [Mass/Vol] 90 mg/dL Normal <=149 [facility] Comment on above: Performed By: #### 2 046130, 645896260, 8507100, 8588992, 1510348, 7612469, 6878275 ####[facility] [address] [place] [address] TSHon 06-01-2021 TSH Qn 3.81 m[IU]/L Normal 0.34-5.60 [facility] Comment on above: Performed By: #### 2 447535, 100732620, 1462175, 2837416, 6645686, 1776464, 6675819 ####[facility] [address] [place] [address] Superficial Wound Cultureon 12-05-2020 Superficial Wound Culture LEFT INFRAMAMMARY SUPERFICIAL SKIN CULTURE Moderate Normal Skin Riri 2 Days PERFORMED BY: [place] [address] PATHOLOGIST CUSTOMER ACQUISITION MANAGER FILOMENA CLARKE M.D. [facility] Comment on above: Performed By: #### C USUP #### [place] [id number] [facility] Vital Signs Date Time Vital Sign Value Performing Clinician Facility 04-18-2022 15:00-0400 Blood Pressure Location Angelina SMILEY [facility] 04-18-2022 15:00-0400 Diastolic blood pressure 62 mm[Hg] Angelina LOPEZArtspace [facility] 04-18-2022 15:00-0400 Heart rate 62 /min Angelina LOPEZArtspace [facility] 04-18-2022 15:00-0400 Respiratory rate 18 /min Angelina LOPEZArtspace [facility] 04-18-2022 15:00-0400 SaO2% (BldA) [Mass fraction] 97 % Angelinayokasta SMILEY [facility] 04-18-2022 15:00-0400 Systolic blood pressure 126 mm[Hg] Angelinayokasta SMILEY [facility] 03-07-2022 14:22-0400 Blood Pressure Location Angelinayokasta SMILEY [facility] 03-07-2022 14:22-0400 Diastolic blood pressure 66 mm[Hg] Angelinayokasta SMILEY [facility] 03-07-2022 14:22-0400 Heart rate 73 /min Angelinayokasta SMILEY [facility] 03-07-2022 14:22-0400 Respiratory rate 18 /min Angelinayokasta SMILEY [facility] 03-07-2022 14:22-0400 SaO2% (BldA) [Mass fraction] 98 % Angelinayokasta SMILEY [facility] 03-07-2022 14:22-0400 Systolic blood pressure 138 mm[Hg] Angelinayokasta SMILEY [facility] 02-05-2022 14:00-0400 Body height 156.21 cm Oli Olexa Other [employer] [facility] [employer] Other 02-05-2022 14:00-0400 Body mass index (BMI) [Ratio] 22.3 kg/m2 Oli Olexa Other [employer] [facility] [employer] Other 02-05-2022 14:00-0400 Body weight 54.43 kg Oli Olexa Other [employer] [facility] [employer] Other 01-30-2022 09:39-0400 Blood Pressure Location RINA SRIRAM [facility] [place] 01-30-2022 09:39-0400 Diastolic blood pressure 50 mm[Hg] RINA PEREZRY [facility] 01-30-2022 09:39-0400 Heart rate 61 /min RINA BHATIA [facility] 01-30-2022 09:39-0400 Respiratory rate 16 /min RINA BAHTIA [facility] 01-30-2022 09:39-0400 Systolic blood pressure 108 mm[Hg] RINA PEREZRY [facility] 01-09-2022 13:58-0400 Body temperature 99 [degF] Miguel Angel Shah MD Work Phone: [employer] 01-09-2022 13:58-0400 Diastolic blood pressure 58 mm[Hg] Miguel Angel Shah MD Work Phone: [employer] 01-09-2022 13:58-0400 Heart rate 91 /min Miguel Angel Shah MD Work Phone: [employer] 01-09-2022 13:58-0400 Respiratory rate 18 /min Miguel Angel Shah MD Work Phone: [employer] 01-09-2022 13:58-0400 SaO2% (BldA) [Mass fraction] 94 % Miguel Angel Shah MD Work Phone: [employer] 01-09-2022 13:58-0400 Systolic blood pressure 143 mm[Hg] Miguel Angel Shah MD Work Phone: [employer] 01-04-2022 07:34-0400 Heart rate 80 /min Miguel Angel Shah MD Work Phone: [employer] 01-01-2022 21:07-0400 Heart rate 99 /min Miguel Angel Shah MD Work Phone: [employer] 01-01-2022 03:17-0400 Body height 154.9 cm Miguel Angel Shah MD Work Phone: [employer] 01-01-2022 03:05-0400 Body mass index (BMI) [Ratio] 24.79 kg/m2 Miguel Angel Shah MD Work Phone: [employer] 01-01-2022 03:05-0400 Body weight 59.51 kg Miguel Angel Shah MD Work Phone: [employer] 12-31-2021 23:34-0400 Diastolic blood pressure 84 mm[Hg] Janna Sauceda [facility] 12-31-2021 23:34-0400 Heart rate 78 /min Janna Sauceda [facility] 12-31-2021 23:34-0400 Mean blood pressure 115 mm[Hg] Janna Sauceda [facility] 12-31-2021 23:34-0400 Respiratory rate 16 /min Janna Sauceda [facility] 12-31-2021 23:34-0400 SaO2% (BldA) [Mass fraction] 98 % Janna Sauceda [facility] 12-31-2021 23:34-0400 Systolic blood pressure 176 mm[Hg] Janna Marche [facility] 12-31-2021 22:44-0400 Diastolic blood pressure 82 mm[Hg] Janna Marche [facility] 12-31-2021 22:44-0400 Heart rate 79 /min Janna Sauceda [facility] 12-31-2021 22:44-0400 Mean blood pressure 112 mm[Hg] Janna Marche [facility] 12-31-2021 22:44-0400 Respiratory rate 16 /min Janna Marche [facility] 12-31-2021 22:44-0400 SaO2% (BldA) [Mass fraction] 98 % Janna Marche [facility] 12-31-2021 22:44-0400 Systolic blood pressure 172 mm[Hg] Janna Marche [facility] 12-31-2021 21:44-0400 Diastolic blood pressure 83 mm[Hg] Janna Marche [facility] 12-31-2021 21:44-0400 Heart rate 82 /min Janna Marche [facility] 12-31-2021 21:44-0400 Respiratory rate 16 /min Janna Marche [facility] 12-31-2021 21:44-0400 SaO2% (BldA) [Mass fraction] 88 % Janna Marche [facility] 12-31-2021 21:44-0400 Systolic blood pressure 175 mm[Hg] Janna Marche [facility] 12-31-2021 20:44-0400 Mean blood pressure 112 mm[Hg] Janna Marche [facility] 12-31-2021 18:45-0400 Body temperature 97.88 [degF] Janna Lachelle [facility] 12-31-2021 18:45-0400 Heart rate 70 /min Janna Marche [facility] 12-31-2021 18:37-0400 Body temperature 97.88 [degF] Janna Marche [facility] 12-31-2021 18:37-0400 Heart rate 74 /min Janna Sauceda [facility] Encounters Encounter Date Encounter Type Care Provider Facility Start: 09-16-2023 End: 09-16-2023 ambulatory MIGUEL ANGEL GARCÍA Not Available Start: 07-15-2023 End: 07-16-2023 ambulatory MIGUEL ANGEL GARCÍA Not Available Start: 10-10-2022 End: 10-11-2022 Pre-admission assessment Axel Perales [facility] Start: 08-06-2022 Letter encounter Marcus rene Start: 08-04-2022 End: 08-04-[address] SKYLA DILLARD Facility: Start: 06-07-2022 End: 06-07-[address] SKYLA DILLARD Facility: Start: 04-18-2022 End: 04-19-2022 ambulatory Angelina SMILEY [place] Start: 04-18-2022 End: 04-18-2022 Patient encounter procedure Angelina SMILEY [facility] Start: 03-16-2022 End: 03-16-[address] SKYLA DILLARD Facility: Start: 03-13-2022 ambulatory RINA Barnes ty:[facility] Start: 03-07-2022 End: 03-08-2022 ambulatory XXXX NONE [place] Start: 03-07-2022 End: 03-07-2022 Patient encounter procedure Angelina SMILEY [facility] Start: 02-19-2022 ambulatory JANNA Hughes lity:Radha RYAN Start: 02-05-2022 End: 02-06-2022 ambulatory OLI WHEELER [employer] Other Start: 02-05-2022 Office outpatient ne w 30 minutes Oli [facility] Start: 02-04-2022 Letter encounter Marcus rene Start: 02-04-2022 End: 02-04-[address] BABATUNDE LIM Facility: Start: 01-31-2022 ambulatory JANNA MANN Facili ty:[facility] Start: 01-30-2022 ambulatory JANNA Garcia RYAN Facilleigh ty:[facility] Start: 01-30-2022 End: 01-31-2022 ambulatory RINA BHATIA Facility:[facility] [place] Start: 01-30-2022 End: 01-30-2022 Patient encounter procedure RINA BHATIA [facility] Start: 01-07-2022 ambulatory JANNA SAUCEDA Facility:[facility] Start: 01-02-2022 ambulatory JANNA SAUCEDA Facility: [facility] Start: 01-01-2022 ambulatory UNKNOWN PROVIDER Facili ty:[facility] Start: 01-01-2022 End: 01-09-2022 Evaluation and management of inpatient [facility] Start: 01-01-2022 End: 01-09-2022 Evaluation and management of inpatient Miguel Angel Shah MD Work Phone: Inpatient 7B Comment on above: Other fracture of ri ght femur, initial encounter for closed fracture (HCC) (Primary Dx); Fall, initial encounter; Ventricular premature depolarization; Other hypertrophic cardiomyopathy (HCC); Abnormal electrocardiogram (ECG) (EKG) Start: 12-31-2021 End: 01-01-2022 Emergency department patient visit Janna Sauceda [place] Start: 12-31-2021 End: 01-01-2022 Emergency department patient visit Janna Sauceda [facility] Start: 10-23-2021 End: 10-24-2021 ambulatory JANNA Bhagat MANN Facility:Radha [facility] Start: 10-09-2021 End: 10-10-2021 ambulatory XXXX NONE Facility[place] Start: 10-09-2021 End: 01-16-2022 Pre-admission assessment Angelina SMILEY [facility] Start: 10-01-2021 End: 10-02-2021 ambulatory Angelina SMILEY [place] Start: 09-17-2021 End: 09-18-2021 ambulatory Angelina SMILEY Facility[facility] Start: 09-11-2021 End: 09-12-2021 ambulatory XXXX NONE Facility[place] Start: 06-27-2021 End: 06-28-2021 ambulatory JANNA MANN Facility:[facility] Start: 06-04-2021 ambulatory JANNA MANN Facili ty:[facility] [place] Start: 06-01-2021 End: 06-02-2021 ambulatory JANNA Bhagat RYAN [place] Start: 12-05-2020 End: 12-05-2020 Departed Referred Cristel Tala Work Phone: [facility] [place] Procedures Date Procedure Procedure Detail Performing Clinician [...] w/least 12 lds trcg only w/o i&r Faheem Janna Wright MD Work Phone: Start: 01-03-2022 [...] Work Phone: Start: 10-02-2018 Cardiac catheterization Janna Sauceda Specimen from breast obtained by biopsy (specimen) Janna Sauceda Plan of Treatment Date Care Activity Detail Author Start: 01-01-2032 Tetanus vaccination [facility] Start: 02-18-2024 End: 02-18-2024 Patient encounter procedure 02/18/2024 1:00 PM EDT Office Visit [facility] [address] [place] [address] Miguel Angel García DO [address] [place] [address] [facility] Start: 08-04-2022 Annual wellness [...] 12-05-2020 Superficial Wound Culture Superficial Wound Culture [facility] Start: 1999 Screening for osteoporosis Bone Densitometry [facility] Start: 1984 Shingles (RZV) Vacci ne (1 of 2) Shingles (RZV) Vaccine (1 of 2) [facility] Start: 1940 Pneumococcal vaccination Pneumococcal Vaccine(s) (65+ yrs) (1 - PCV) [facility] Basic metabolic 2000 panel - Serum or Plasma BASIC METABOLIC PANEL Lab Routine Every 24 Hours until discontinued starting 01/04/2022, 7 completed [employer] Work Phone: Comment on above: Every 24 Hours until discontinued starting 01/04/2022, 7 completed End: 01-01-2022 Blood typing serologic abo ABO RH TYPE Lab Routine One time for 1 Occurrences starting 01/01/2022 until 01/01/2022 [facility] Work Phone: Comment on above: One time for 1 Occur rences starting 01/01/2022 until 01/01/2022 CBC panel - Blood by Automated count COMPLETE BLOOD COUNT Lab Routine Every 24 Hours until discontinued starting 01/04/2022, 7 completed [facility] Comment on above: Every 24 Hours until discontinued starting 01/04/2022, 7 completed [employer] fem shft fx w/insj imed implt w/wo screw OPEN TREATMENT, FEMORAL SHAFT FRACTURE, W/INSERTION, INTRAMEDULLARY IMPLANT, W/WO SCREW/CERCLAGE Procedures Routine Other fracture of right femur, initial encounter for closed fracture (HCC) Ordered: 01/02/2022 [facility] Work Phone: Comment on above: Ordered: 01/02/2022 Transfusion of packe d red blood cells TRANSFUSE RED CELLS Transfusion Routine 01/03/2022 4:08 AM EDT [employer] Work Phone: Transfusion of packe d red blood cells TRANSFUSE RED CELLS Transfusion Routine 01/03/2022 10:30 AM EDT [facility] Transfusion of packe d red blood cells [facility] Transfusion of packe d red blood cells TRANSFUSE RED CELLS Transfusion Routine 01/05/2022 6:16 AM EDT [facility] Immunizations Immunization Date Immunization Notes Care Provider [facility] 01-02-2022 Albumin Miguel Angel Bryson lt, MD [facility] 12-31-2021 tetanus toxoid, redu molly diphtheria toxoid, and acellular pertussis vaccine, adsorbed; Translations: [Boostrix (Tdap)] Janna Sauceda [facility] Comment on above: Early/Late Reason: E anjana/Late Reason: Nursing Judgment Early/Late Reason: E anjana/Late Reason: Nursing Judgment 06-27-2021 influenza, high dose seasonal, preservative-free Janna Sauceda [facility] 06-27-2021 influenza virus vacc ine, unspecified formulation [facility] 09-12-2020 SARS-CoV-2 (COVID-19 ) mRNA-1503 vaccine Janna Sauceda [facility] Comment on above: Result Comment: [facility] Result Comment: [facility] 08-14-2020 SARS-CoV-2 (COVID-19 ) mRNA-1273 vaccine Janna Sauceda [facility] Comment on above: Result Comment: [facility] Result Comment: [facility] 05-19-2020 influenza, high dose seasonal, preservative-free Janna Sauceda [facility] 05-26-2019 influenza, high dose seasonal, preservative-free Janna Sauceda [facility] 05-06-2018 influenza virus vacc ine, unspecified formulation Janna Sauceda [facility] 05-06-2018 influenza, high dose seasonal, preservative-free Miguel Angel Shah MD Work Phone: [facility] 07-12-2016 pneumococcal conjuga te vaccine, 13 valent Janna Sauceda [facility] 05-06-2016 influenza, injectabl e, quadrivalent, contains preservative Miguel Angel Shah MD Work Phone: [facility] 07-17-2009 novel influenza-H1N1 -09, preservative-free, injectable Miguel Angel Shah MD Work Phone: [facility] 08-06-1999 pneumococcal polysaccharide vaccine, 23 valent Janna Sauceda [facility] Payers Date Payer Category Payer Medicare [id number] 2020 Private Health Insurance [facility] [id number] 1960 Medicare [id number] 1960 Medicare [id number] 1934 Unknown [id number] 2.16. 840.1.189842.3.579.2.732 1934 Unknown [id number] 2.16. 840.1.924060.3.579.2.732 1934 Unknown [id number] 2.16. 840.1.875501.3.579.2.732 1934 Unknown [id number] 2.16. 840.1.187878.3.579.2.732 1934 Unknown [id number] 2.16. 840.1.713621.3.579.2.732 1934 Unknown [id number] 2.16.8 40.1.935047.3.579.2.727 1934 Unknown [id number] 2.16.8 40.1.893636.3.579.2.72 1934 Unknown [id number] 2.16.8 40.1.288700.3.579.2.72 1934 Unknown [id number] 2.16.8 40.1.237943.3.579.2 1934 Unknown [id number] 2.16.8 40.1.510411.3.579.2 1934 Unknown [id number] 2.16.8 40.1.176995.3.579.272 1934 Unknown [id number] 2.16.8 40.1.258607.3.579.2 1934 Unknown [id number] 2.16.8 40.1.288493.3.579.272 1934 Unknown [id number] 2.16.8 40.1.117766.3.579.2.72 1934 Unknown [id number] 2.16.8 40.1.142103.3.579.2.72 1934 Unknown [id number] 2.16.8 40.1.191064.3.579.272 1934 Unknown [id number] 2.16.8 40.1.315698.3.579.2.72 1934 Unknown [id number] 2.16.8 40.1.547323.3.579.272 1934 Unknown [id number] 2.16.8 40.1.682952.3.579.2.727 1934 Unknown [id number] 2.16.84 0.1.439119.3.579.2.593 1934 Unknown [id number] 2.16.84 0.1.242734.3.579.2.593 1934 Unknown [id number] 2.16.84 0.1.934438.3.579.2.593 1934 Unknown [id number] 2.16.84 0.1.272119.3.579.2.593 1934 Unknown [id number] 2.16.84 0.1.796024.3.579.2.593 1934 Unknown [id number] 2.16.84 0.1.955379.3.579.2.1259 1934 Unknown [id number] 2.16.840 .1.965265.3.579.2.1259 Self-pay Self Pay [id number] Social History Date Type Detail Facility [facility] Start: 1935 Sex Assigned At Female [facility] Tobacco [facility] Comment on above: denies denies Start: 03-12-2023 Female [facility] Start: 01-01-2022 End: 03-12-2023 Tobacco smoking status [...] smoking status Never [facility] Start: 03-12-2023 History of Social function [facility] Medical Equipment Procedure Code Equipment Code Equipment Origin al Text Equipment Identifier Dates Screw 5.0 X 40mm Self-Tapping Ea1 04.005.530 - [id number] Start: 01-02-2022 Blade Helical Tf na 80mm Ea1 038.380s - [id number] Start: 01-02-2022 Goals Date Patient Goal Desired Activity /State Functional Status Date Assessment Result Facility 04-18-2022 Functional Status N/A [facility] 03-07-2022 Functional Status N/A [facility] 01-30-2022 Functional Status N/A [facility] Clinical Notes 09-26-2021 to 09-16-2023 Miguel Angel García, - 09/16/2023 1:00 PM EST Note Date & Type Note Facility 09-16-2023 Note Right Eye Quality was good. Scan locations included subfoveal. Progression has been stable. Findings include abnormal foveal contour, disciform scar. Left Eye Quality was good. Scan locations included subfoveal. Progression has been stable. Findings include abnormal foveal contour, disciform scar. [facility] 09-16-2023 History of Presen t illness Narrative [...] surgery. Stable exam documented in this encounter [facility] 02-06-2022 Note PROCEDURE: XR FEMUR RT HISTORY: [...] authenticated by: JOSEPH VALDOVINOS Date: 2022-02-06 09:59 [facility] 02-05-2022 Evaluation note Encounter Date Diagnosis Assessment [...] right femur, initial encounter (ICD-10 - S72.001A) [employer] Other 06-29-2022 Hospital Discharge instructions Patient Education [...] complications. Follow these instructions at home: Take wpfv-omd-iaqxede and prescription medicines only as told by [...] 07/20/2007 Document Revised: 07/03/2018 Document Reviewed: 08/22/2017 [employer] Patient Education 2020 [employer]twick. [facility] 06-08-2022 Note Attestation signed by Diana [...] Trauma / Emergency general surgery My pager: [phone] Trauma resident: -[phone] ACS resident: -0632 (admitted) / -6366 (new pts) ICU resident: -0465 (ticu) / -[phone] (sicu) DISCHARGE SUMMARY [address] [address] Toribio Betts Date of : 1935 86 year oldfemale Attending Diana Marsh DO Date of Admission 01/01/2022 Date of Discharge 01/09/22 [facility] DIVISION OF ACUTE CARE SURGERY FINAL [...] in by EMS as a transfer from [place] [facility] standing on 12/31. She fell and her leg twisted under her. She is on Eliquis. She sustained R right femoral shaft fx during this event. ??? SIGNIFICANT FINDINGS: Catalog of Injuries -???R femoral shaft fractrue - Acute blood loss anemia - Hyponatremia???- resolved Incidental Findings None HOSPITAL COURSE: Hospital Course: S/p fall, patient was admitted to [facility]. She???Underwent intramedullary implant for femoral shaft [...] NWB Functional status: ambulatory Patient discharge to: long term facility ANTICIPATED FOLLOW UP: No future appointments. [...] until 02/20/22 E (more content not included)...[facility] [id number] Note* Care Plan Note - Chai Garcia [...] of transfer via DM, report called to [facility] [id number] Miscellaneous Notes* Care Plan Note - Chai [...] of transfer via DM, report called to [facility] * Discharge Planning Note - Radha Cox LSW - 01/09/2022 1:37 PM EDT CASE MANAGEMENT/SOCIAL WORK SNF DC NOTE: Pt has been cleared for transfer to SNF on this date Pt will be transferred to [facility] via Yusuf Garcia ([id number]) at 3:30 PM Nursing report may be called to [phone] Support person notified: pt and son at bedside Patient/Family, team aware of above and agreeable. For discharge, please ensure the following is completed: MD to place DC order, reconcile meds, and print narcotics to go with patient to SNF [facility] to print Discharge Summary, [place], Summary of Care, Narcotic Scripts, and Signature Page and place in a packet to be given to canal driver If transport/discharge needs to be adjusted/cancelled, team (/RN) to cancel transport, update support person, and update receiving facility. Radha Cox [facility], AIRPORT MAINTENANCE LABORER [phone] * Care Plan Note - Chai Garcia [...] toes Elvira (Ailyn) MD Ivan Orthopaedic Surgery, PGY-2 * Care Plan Note - Adolfo Yu [...] 4:24 PM EDT Name: TORIBIO BETTS MR#: [id number] ENC#: [id number] Date of Procedure: 01/02/2022 ATTENDING SURGEON: Eric Sher MD FIRST SURGEON: Joselito Patel PREOPERATIVE DIAGNOSIS: Right proximal 3rd femur shaft fracture. POSTOPERATIVE DIAGNOSIS: Right proximal 3rd femur shaft fracture. PROCEDURE PERFORMED: IM nail of right femur fracture. CPT code 34764. ANESTHESIA: GETA. ESTIMATED BLOOD LOSS: 200 mL. [...] personnel confirmed the time-out. I used the Curlew table to pull some in-line traction, a [...] Dict: 01/02/2022 11:34:47 TRANS: 01/02/2022 14:21:14 JOB: [id number] DictJob#: [id number] * Care Plan Note - Araseli Diego [...] year old female Surgical Contact Serial Number: [id number] Preoperative Diagnosis: Other fracture of right femur, initial encounter for closed fracture (HCC) [S72.8X1A] Postoperative Diagnosis: * Other fracture of right femur, initial encounter for closed fracture (HCC) [S72.8X1A] Procedures: Surgical CPTs Procedures OPEN TREATMENT, FEMORAL SHAFT FRACTURE, W/INSERTION, INTRAMEDULLARY IMPLANT, W/WO SCREW/CERCLAGE No data filed Surgeon(s): Surgeon(s): Eric Sher MD Staff: Scrub: Christine Matson Remelt Furnace Expediter Nurse: Heather Pedroza RN Clinical Quality Rn: Lety Clarke Parking Analyst: Joselito Patel MD; Salma Mae MD Anesthesia: General Anesthesiologist: Davide Mcintosh DO CAA: Henrique Quijano CAA DRILL PRESSER: Erika Islas APRN-CRNA Specimen(s): * No specimens [...] were discussed with the patient and/or legal agency service representative. The risks, benefits and alternatives were reviewed. Questions regarding anesthesia were answered. Patient and/or legal agency service representative knows such anesthetics and procedures may be [...] were discussed with the patient and/or legal agency service representative. The risks, benefits and alternatives were reviewed. Questions regarding blood transfusions were answered. The patient /or the patient s legal agency service representative agree with the plan for transfusion of [...] be met Outcome: Progressing documented in this [id number] Note* Discharge Planning Note - Radha Cox LSW - 01/09/2022 1:37 PM EDT CASE MANAGEMENT/SOCIAL WORK SNF DC NOTE: Pt has been cleared for transfer to SNF on this date Pt will be transferred to [facility] via Yusuf Garcia ([id number]) at 3:30 PM Nursing report may be called to [phone] Support person notified: pt and son at bedside Patient/Family, team aware of above and agreeable. For discharge, please ensure the following is completed: MD to place DC order, reconcile meds, and print narcotics to go with patient to SNF [place] to print Discharge Summary, [place], Summary of Care, Narcotic Scripts, and Signature Page and place in a packet to be given to canal driver If transport/discharge needs to be adjusted/cancelled, team (/RN) to cancel transport, update support person, and update receiving facility. CATARINA Torres [phone] [id number] Hospital Discharge instructions* Discharge Instructions* [place] [...] primary care physician or establishing care at [facility] if you do not already have one. [...] IMMEDIATELY. Alternatively, you may come into the [facility] Emergency Department IMMEDIATELY for an emergent [...] not have a primary physician please call [phone] for guidance on finding a [facility] provider. If you have questions or concerns , if your condition worsens or you develop new symptoms please call the [employer] Line at [phone]. documented in this [id number] History of Present illness Narrative* Radha Cox LSW - 01/09/2022 10:57 AM EDT Pre-cert remains pending for [facility] this date. SKYLAR sent updated clinicals. [id number] initiated in [facility] Transport form on [employer]. SW will continue to follow. Radha Cox [facility], [facility] [phone] * Jaja King, SENIOR MARKET RESEARCH ANALYST - 01/08/2022 9:26 AM EDT SOCIAL WORK COVERAGE NOTE Plan: DC to [facility]. Pre-cert pending. Updated therapy notes needed for pre-cert, PT/OT aware. SW to send updated notes to SNF when available. 11:35a Addendum: Updated clinicals sent to [facility]. SNF requires Covid test prior to admission, aware and asked to place order. SW to contact pt's POA/son Terry Tim [phone] once DC confirmed and pre-cert has been obtained. Will continue to follow. YOANNA Manley, AIRPORT MAINTENANCE LABORER * Maximo Diana, - 01/08/2022 6:55 AM EDT Images from the original note were not included. GENERAL INFORMATION REGULAR NURSING FLOOR - STAFF NOTE Patient seen and examined on 01/08/2022 Patient Name: Toribio Betts Admission Date: 01/01/2022 INTERVAL HISTORY/EVENTS Background: Toribio Betts is a 86 year old female [facility] fall from standing on 12/[facility]. She fell and her leg twisted under her. She is on Eliquis. Hospital Course: 12/31/2021: S/p fall, patient was admitted to [facility] 01/01/2022: No acute events overnight 01/02/2022: [...] cleared for discharge to SNF, accepted to [facility]. Cortes replaced for recurrent urinary retention. Okay [...] trauma / emergency general surgery Personal pager: [phone] Trauma resident pager: [phone] * Shakira Johnson RN - 01/07/2022 12:28 [...] Disoriented to person;Disoriented to place;Disoriented to time;Confused [place] Coma Scale (Adult) Eye Opening 4 3 [...] DC to SNF. Pt accepted to [facility] [place]. SW sent updated clinicals to admissions and asked for pre-cert to be started. SW attempted to update pt's son, Terry. No answer and VM. SW will continue to follow. Rebeca Mendoza [facility] Care Coordination Department * [place] MD - 01/07/2022 8:22 AM EDT Images from the original note were not included. GENERAL INFORMATION TRAUMA STAFF NOTE Patient Name: Toribio Betts Patient seen and examined on 01/07/2022 INTERVAL HISTORY/EVENTS Background: Toribio Betts is a 86 year old female brought in by EMS as a transfer from [facility] following fall from standing on 12/31. She fell and her leg twisted under her. She is on Eliquis. Hospital Course: 12/31/2021: S/p fall, patient was admitted to [facility] 01/01/2022: No acute events overnight 01/02/2022: [...] and concerns related to the patient. (Pager: [phone]) Plan discussed with Dr. Marsh. [place] [...] Trauma / Emergency general surgery My pager: [phone] Trauma resident: [phone] ACS resident: -[phone] (admitted) / -[phone] (new pts) ICU resident: -[phone] (ticu) / -[phone] (sicu) * Silviano Bernal MD - 01/06/2022 7:22 AM EDT Images from the original note were not included. GENERAL INFORMATION TRAUMA STAFF NOTE Patient Name: Toriibo Betts Patient seen and examined on 01/06/2022 INTERVAL HISTORY/EVENTS Background: Toribio Betts is a 86 year old female brought in by EMS as a transfer from [facility] following fall from standing on 12/31. She fell and her leg twisted under her. She is on Eliquis. Hospital Course: 12/31/2021: S/p fall, patient was admitted to [facility] 01/01/2022: No acute events overnight 01/02/2022: [...] and concerns related to the patient. (Pager: [phone]) Plan discussed with Dr. Bernal. [place] [...] in by EMS as a transfer from [facility] following fall from standing on 5/30. She fell and her leg twisted under her. She is on Eliquis. Hospital Course: 12/31/2021: S/p fall, patient was admitted to [facility] 01/01/2022: No acute events overnight 01/02/2022: [...] indicated Dispo: - Likely to SNF at [facility] Follow up: - Ortho (Dr. Sher) 2 weeks -follow up with pcp as well No need for f/u with us unless needed. Please contact 24/02 with questions and concerns related to the patient. (Pager: [phone]) Plan discussed with Dr. Bernal. Mila Weeks [...] Family requesting referrals be sent to [facility]. SW sent referrals this date. Pt will require pre-cert. No weekend DC. SW will continue to follow. Radha Cox [facility], AIRPORT MAINTENANCE LABORER [phone] * Silviano Bernal MD - 01/04/2022 6:57 AM EDT Images from the original note were not included. GENERAL INFORMATION TRAUMA STAFF NOTE Patient Name: Toribio Betts Patient seen and examined on 01/04/2022 INTERVAL HISTORY/EVENTS Background: Toribio Betts is a 86 year old female brought in by EMS as a transfer from [facility] following fall from standing on 12/31. She fell and her leg twisted under her. She is on Eliquis. Hospital Course: 12/31/2021: S/p fall, patient was admitted to [facility] 01/01/2022: No acute events overnight 01/02/2022: [...] indicated Dispo: - Likely to SNF at [facility] Follow up: - Ortho (Dr. Sher) 2 weeks -follow up with pcp as well No need for f/u with us unless needed. Please contact 24/02 with questions and concerns related to the patient. (Pager: [phone]) SCRIBE ATTESTATION 01/04/2022, 6:57 AM. This note [...] 8.2 Elvira (Ailyn) MD Ivan Orthopaedic Surgery, PGY-2 * Radha Cox LSW - 01/03/2022 11:45 AM EDT SW aware of rand butter screen yield for pt has ADs, paper copy not with pt. SW met with pt at bedside, pt confirms having POA and LW. Per pt, POA is: sina Tim [phone] Pt/family educated to bring a copy of [...] preferences from the medicare.govcompare site for SNF. [place] of Choice was provided to the patient/patient agency service representative. For SNF: RN/MD to complete [employer]. Signature page placed on patient's chart for MD signature. Pt will require a pre-cert/LOC. Referral sent to [facility] per family request. SW will continue to follow. CATARINA Torres [phone] * Eun Alicea RN - 01/03/2022 10:03 [...] 8.8 Elvira Love MD (Lola) Orthopaedic Surgery, PGY-6 * Megan Ta MD - 01/03/2022 7:02 AM EDT Images from the original note were not included. GENERAL INFORMATION TRAUMA STAFF NOTE Patient Name: Toribio Betts Patient seen and examined on 01/03/2022 INTERVAL HISTORY/EVENTS Background: Toribio Betts is a 86 year old female brought in by EMS as a transfer from [facility] following fall from standing. She fell and her leg twisted under her. She is on Eliquis. Hospital Course: 12/31/2021: S/p fall, patient was admitted to [facility] 01/01/2022: No acute events overnight 01/02/2022: [...] and concerns related to the patient. (Pager: [phone]) SCRIBE ATTESTATION 01/03/2022, 7:02 AM. This note [...] - 01/03/2022 6:58 AM EDT Trauma resident consumer safety inspector notified of low urine output. Also notified [...] 01/02/2022 9:44 AM EDT SW aware of rand butter screen yield for pt has ADs, paper copy not with pt. Pt to OR this date. SW will follow up as able. Radha Cox [facility] [phone] * Elvira Love MD - 01/02/2022 7:50 [...] 8.8 Elvira Love MD (Lola) Orthopaedic Surgery, PGY-2 * Megan Ta MD - 01/02/2022 7:35 AM EDT GENERAL INFORMATION TRAUMA STAFF NOTE Patient Name: Toribio Betts Patient seen and examined on 01/02/2022 INTERVAL HISTORY/EVENTS Background: Toribio Betts is a 86 year old female [facility] standing. She fell and her leg twisted under her. She is on Eliquis. Hospital Course: 12/31/2021: S/p fall, patient was admitted to [facility] 01/01/2022: No acute events overnight 24 [...] and concerns related to the patient. (Pager: [phone]) SCRIBE ATTESTATION 01/02/2022, 7:35 AM. This note [...] 01/01/2022 4:00 PM EDT SW aware of rand butter screen yield for pt has ADs, paper copy not with pt. SW will follow up as able. Radha Cox [facility], AIRPORT MAINTENANCE LABORER [phone] * Megan Ta MD - 01/01/2022 7:01 AM EDT Images from the original note were not included. GENERAL INFORMATION TRAUMA STAFF NOTE Patient Name: Toribio Betts Patient seen and examined on 01/01/2022 INTERVAL HISTORY/EVENTS Background: Toribio Betts is a 86 year old female brought in by EMS as a transfer from [facility] following fall from standing. She fell and her leg twisted under her. She is on EliObjective Logisticsis. Hospital Course: 12/31/2021: S/p fall, patient was admitted to [facility] 24 Hour Events: Patient was admitted to [facility] Saturating at 99% on 2L NC [...] and concerns related to the patient. (Pager: [phone]) SCRIBE ATTESTATION 01/01/2022, 7:01 AM. This note [...] by Megan Ta MD. documented in this [id number] Note* Care Plan Note - Chai Garcia [...] times about date, tolerating diet, SNF placement [id number] NotePHYSICAL THERAPY PROGRESS SUMMARY Patient seen from [...] Dep Max Mod Min CG CS DS CT I Comment Supine to sit x2 Transfers x2 Stand pivot bed to chair WBAT RLE Sit to/from stand x2 From EOB to rolling walker Walking on level surface x Unable to progress ambulation d/t pain, anxiety. Stairs x Not functionally appropriate Stand to sit x2 For eccentric control Sit to Supine x Functional Endurance: improving BP post zonqzstc=606/44 (BP checked d/t pt reports feeling of [...] With Patients permission ordered no equipment via [employer] Order. If any questions contact [facility] DME Provider at [phone]. 8 Clicks Basic Mobility PT 01/08/2022 Difficulty turning [...] Plan of Care Patricia Matta LORRIE Beeper #[phone] NA = Not Assessed, I = Independent, CT = Modified Independent, Sup = Supervised, Set up = Physical Assistance for Set-up Only, Min = Minimal Assistance, Mod = Moderate Assistance, Max = Maximal assistance; Dep = Dependent; AROM = Active Range of Motion; PROM = Passive Range of Motion; MMT = Manual Muscle TestThe [employer] [id number] NoteOCCUPATIONAL THERAPY PROGRESS SUMMARY Patient seen from 925 to 955 on 7C unit for 30 minute treatment. Co-tx with FABRIC FINISHER for skilled assist with progression of functional [...] Dep Max Mod Min CG CS DS CT I Set-Up Cues Comment Feeding X Eating [...] With Patients permission ordered no equipment via [employer] Order. If any questions contact [facility] DME Provider at [phone]. 7 Clicks Daily Activity OT 01/08/2022 Help [...] Guard Assist/Supervision 4 - Non = Modified [place]/Independent ASSESSMENT: Patient continues to require maximal assistance [...] NA = Not Assessed, I = Independent, CT = Modified Independent, Sup = Supervised, Set up = Physical Assistance for Set-up Only, Min = Minimal Assistance, Mod = Moderate Assistance, Max = Max assistance; Dep = Dependent; AROM = Active Range of Motion;PROM=Passive Range of Motion; MMT = Manual Muscle Test; Shld= Shoulder; Add = Adduction; Abd = AbductionThe [employer] [id number] Consult note* Paxton Patricia - 01/08/2022 10:04 [...] Dep Max Mod Min CG CS DS CT I Comment Supine to sit x2 Transfers x2 Stand pivot bed to chair WBAT RLE Sit to/from stand x2 From EOB to rolling walker Walking on level surface x Unable to progress ambulation d/t pain, anxiety. Stairs x Not functionally appropriate Stand to sit x2 For eccentric control Sit to Supine x Functional Endurance: improving BP post xcjvlupv=885/44 (BP checked d/t pt reports feeling of [...] With Patients permission ordered no equipment via [employer] Order. If any questions contact [facility] DME Provider at [phone]. 6 Clicks Basic Mobility PT 01/08/2022 Difficulty [...] Plan of Care Patricia Matta LPTA Beeper #[phone] NA = Not Assessed, I = Independent, CT = Modified Independent, Sup = Supervised, Set up = Physical Assistance for Set-up Only, Min = Minimal Assistance, Mod = Moderate Assistance, Max = Maximal assistance; Dep = Dependent; AROM = Active Range of Motion; PROM = Passive Range of Motion; MMT = Manual Muscle Test [employer] Work Phone: 1(119) 938-613706-07-2022 Consult note* Patricia Matta - 01/08/2022 10:04 [...] Dep Max Mod Min CG CS DS CT I Comment Supine to sit x2 Transfers x2 Stand pivot bed to chair WBAT RLE Sit to/from stand x2 From EOB to rolling walker Walking on level surface x Unable to progress ambulation d/t pain, anxiety. Stairs x Not functionally appropriate Stand to sit x2 For eccentric control Sit to Supine x Functional Endurance: improving BP post okpwmnnj=066/44 (BP checked d/t pt reports feeling of [...] With Patients permission ordered no equipment via [employer] Order. If any questions contact [facility] DME Provider at [phone]. 6 Clicks Basic Mobility PT 01/08/2022 Difficulty [...] Plan of Care Patricia Matta LORRIE Beeper #[phone] NA = Not Assessed, I = Independent, CT = Modified Independent, Sup = Supervised, Set [...] unit for 30 minute treatment. Co-tx with FABRIC FINISHER for skilled assist with progression of functional [...] Dep Max Mod Min CG CS DS CT I Set-Up Cues Comment Feeding X Eating [...] With Patients permission ordered no equipment via [employer] Order. If any questions contact [facility] DME Provider at [phone]. 6 Clicks Daily Activity OT 01/08/2022 Help [...] Guard Assist/Supervision 4 - Non = Modified [place]/Independent ASSESSMENT: Patient continues to require maximal assistance [...] NA = Not Assessed, I = Independent, CT = Modified Independent, Sup = Supervised, Set up = Physical Assistance for Set-up Only, Min = Minimal Assistance, Mod = Moderate Assistance, Max = Max assistance; Dep = Dependent; AROM = Active Range of Motion;PROM=Passive Rangeof Motion; MMT = Manual Muscle Test; Shld= Shoulder; Add = Adduction; Abd = Abduction * Dulce Leahy - 01/07/2022 9:55 AM EDT Diet Registered Route Associate Nutrition Screening Reason for visit: LOS 5 [...] Will continue to follow, Dulce Leahy, Diet Registered Route Associate Pager [phone] * Martha Arrington, OT - 01/06/2022 12:05 [...] Dep Max Mod Min CG CS DS CT I Set-Up Cues Comment Feeding x cues [...] With Patients permission ordered no equipment via [employer] Order. If any questions contact [facility] DME Provider at [phone]. 6 Clicks Daily Activity OT 01/06/2022 Help [...] Guard Assist/Supervision 4 - Non = Modified [place]/Independent ASSESSMENT: Recommend further therapy services in a Skilled Rehab Setting once medically cleared. Will continueto follow patient while in hospital as appropriate. Revised Web Publisher Goals: Goals (to be achieved by discharge [...] NA = Not Assessed, I = Independent, CT = Modified Independent, Sup = Supervised, Set [...] Dep Max Mod Min CG CS DS CT I Comment Roll to right sidelying x Very minimal roll to right for straightening of chux Roll to left sidelying x FIRE PATROLLER initially then guiding hand to bed rail. [...] Guard Assist/Supervision 4 - Non = Modified [place]/Independent Progressive Mobility Level: Level 4 Patient Behavior Goal to Advance to Next Level of Activity Level 0 Obtunded, unable to attend Passive lzyzk-zi-gbzexd exercises in bed Passive positioning and elevation of extremities Level 1 Attends Passive transfer from bed to chair Participates in active and/or passive exercises in bed or chair Level 2 Attends and achieved Level 1 Sit Upright and dangle legs over the edge of bed or chair Passive transfer from bed to chair Level 3 Attends and achieved Level 2 Perform oku-gh-zytwk Static standing at bedside Level 4 Attends and achieved Level 3 Standing activities Active transferring from bed to chair Gait training ASSESSMENT: Patient with increased tolerance to upright this session, able to sit edge of bed for 20 minutes and attempt standing however was limited by pain. Continue to recommend further therapy services in a Fdc Setting once medically cleared. Will continue to [...] ROM/strenghtening Becca Nolan (Ellie), PT, DPT Pager: [phone] NA = Not Assessed, I = Independent, CT = Modified Independent, Sup = Supervised, Set [...] Dep Max Mod Min CG CS DS CT I Set-Up Cues Comment Feeding X X [...] at therapists * See BP's below BP: Umhnoo=874/43 Sitting=92/44 After returned to puvgla=139/45 Endurance for Self Care: Fair Patient/Family Education: [...] Guard Assist/Supervision 4 - Non = Modified [place]/Independent ASSESSMENT: Pt with minimal improvement in activity [...] per Initial Evaluation. Cecelia More OT/L b. [phone] NA = Not Assessed, I = Independent, CT = Modified Independent, Sup = Supervised, Set [...] Dep Max Mod Min CG CS DS CT I Comment Roll to right sidelying x [...] to Supine x2 Functional Endurance: impaired BP: Pdaiyn=540/43 Sitting=92/44 After returned to tqndnw=935/45 Sitting Balance: Static:poor Dynamic:poor *Pt static sits [...] With Patients permission ordered no equipment via [employer] Order. If any [facility] Provider at [phone]. 6 Clicks Basic Mobility PT 01/04/2022 Difficulty [...] established Plan of Care Patricia ANDREW Beeper #[phone] NA = Not Assessed, I = Independent, CT = Modified Independent, Sup = Supervised, Set [...] recommendation for SNF Cecelia More OT/L b. [phone] * Cecelia More OT - 01/03/2022 10:28 [...] Dep Max Mod Min CG CS DS CT I Set-Up Comment Feeding X To manage drinks to mouth with straw Grooming/Hygiene X BUE ROM rigid/guarded Bathing:UB X Bathing:LB X Dressing:UB X Dressing: LB X Toileting X Cortes in place Transfers/Bed Mobility: pt had received 1 unit of blood prior to mobility Assistance Level Dep Max Mod Min CG CS DS CT I Set-Up Comment Toilet Transfers Bed Transfers [...] Guard Assist/Supervision 4 - Non = Modified [place]/Independent ASSESSMENT: Recommend further therapy services in a [...] plan and goals. Cecelia More OT/L b. [phone] NA = Not Assessed, I = Independent, CT = Modified Independent, Sup = Supervised, Set [...] and pain) Patient Identified Goal(s): None stated FABRIC FINISHER Status: (per patient - verified with sons [...] With Patients permission ordered no equipment via [employer] Order. If any questions contact [facility] DME Provider at [phone]. 6 Clicks Basic Mobility PT 01/03/22 Difficulty [...] Therefore, recommend further therapy services in a Fdc Setting once medically cleared. Will continue tofollow [...] NA = Not Assessed, I = Independent, CT = Modified Independent, Sup = Supervised, Set [...] to follow. Cecelia Stiles PT, MPT (B) [phone] * Mari Hung OT - 01/02/2022 7:34 [...] to follow. Cecelia Stiles PT, MPT (B) [phone] * Mari Hung OT - 01/01/2022 7:31 AM EDT Occupational Therapy Chart Review Admit Date: 01/01/22 OT Referral Date: 01/01/22 Service: Trauma Reason for Admit: transfer from [facility] s/p fall from standing Diagnosis: R [...] Ron Bach MD, 650 mg at 01/01/22 6458 ondansetron (ZOFRAN) 4 MG/2ML injection, 4 mg, [...] impressions. Eric Sher MD documented in this [id number] Consult note* Radha Valentine, MARLEN - 01/08/2022 9:55 AM EDT OCCUPATIONAL THERAPY PROGRESS SUMMARY Patient seen from 925 to 955 on 7C unit for 30 minute treatment. Co-tx with FABRIC FINISHER for skilled assist with progression of functional mobility and safety. SUBJECTIVE: Patient Subjective/Goals: Is Keivn here? Kevin, I want to give up. [...] Dep Max Mod Min CG CS DS CT I Set-Up Cues Comment Feeding X Eating [...] With Patients permission ordered no equipment via [employer] Order. If any questions contact [facility] DME Provider at [phone]. 6 Clicks Daily Activity OT 01/08/2022 Help [...] Guard Assist/Supervision 4 - Non = Modified [place]/Independent ASSESSMENT: Patient continues to require maximal assistance [...] NA = Not Assessed, I = Independent, CT = Modified Independent, Sup = Supervised, Set up = Physical Assistance for Set-up Only, Min = Minimal Assistance, Mod = Moderate Assistance, Max = Max assistance; Dep = Dependent; AROM = Active Range of Motion;PROM=Passive Rangeof Motion; MMT = Manual Muscle Test; Shld= Shoulder; Add = Adduction; Abd = Abduction [id number] Note* Care Plan Note - Eun Alicea [...] adult patient will be met Outcome: Progressing [id number] Consult note* Dulce Leahy - 01/07/2022 9:55 AM EDT Diet Registered Route Associate Nutrition Screening Reason for visit: LOS 5 [...] Will continue to follow, Dulce Leahy Diet Registered Route Associate Pager [phone] [id number] Note* Care Plan Note - Shakira Johnson [...] adult patient will be met Outcome: Progressing [id number] NoteOCCUPATIONAL THERAPY PROGRESS SUMMARY Patient seen from [...] Dep Max Mod Min CG CS DS CT I Set-Up Cues Comment Feeding x cues [...] With Patients permission ordered no equipment via [employer] Order. If any questions contact [facility] DME Provider at [phone]. 6 Clicks Daily Activity OT 01/06/2022 Help [...] Guard Assist/Supervision 4 - Non = Modified [place]/Independent ASSESSMENT: Recommend further therapy services in a Skilled Rehab Setting once medically cleared. Will continue to follow patient while in hospital as appropriate. Revised Web Publisher Goals: Goals (to be achieved by discharge [...] NA = Not Assessed, I = Independent, CT = Modified Independent, Sup = Supervised, Set up = Physical Assistance for Set-up Only, Min = Minimal Assistance, Mod = Moderate Assistance, Max = Max assistance; Dep = Dependent; AROM = Active Range of Motion;PROM=Passive Range of Motion; MMT = Manual Muscle Test; Shld= Shoulder; Add = Adduction; Abd = AbductionThe [facility] [id number] NotePHYSICAL THERAPY PROGRESS SUMMARY Patient seen on [...] Dep Max Mod Min CG CS DS CT I Comment Roll to right sidelying x Very minimal roll to right for straightening of chux Roll to left sidelying x FIRE PATROLLER initially then guiding hand to bed rail. [...] Guard Assist/Supervision 4 - Non = Modified [place]/Independent Progressive Mobility Level: Level 4 Patient Behavior Goal to Advance to Next Level of Activity Level 0 Obtunded, unable to attend Passive yxbft-cq-stayps exercises in bed Passive positioning and elevation of extremities Level 1 Attends Passive transfer from bed to chair Participates in active and/or passive exercises in bed or chair Level 2 Attends and achieved Level 1 Sit Upright and dangle legs over the edge of bed or chair Passive transfer from bed to chair Level 3 Attends and achieved Level 2 Perform jyl-al-ocrce Static standing at bedside Level 4 Attends and achieved Level 3 Standing activities Active transferring from bed to chair Gait training ASSESSMENT: Patient with increased tolerance to upright this session, able to sit edge of bed for 20 minutes and attempt standing however was limited by pain. Continue to recommend further therapy services in a Fdc Setting once medically cleared. Will continue to [...] functional goals wit (more content not included)...[facility] [facility] 01-06-2022 Consult note* Martha Arrington, OT [...] Dep Max Mod Min CG CS DS CT I Set-Up Cues Comment Feeding x cues [...] With Patients permission ordered no equipment via [employer] Order. If any questions contact [facility] DME Provider at [phone]. 2 Clicks Daily Activity OT 01/06/2022 Help [...] Guard Assist/Supervision 4 - Non = Modified [place]/Independent ASSESSMENT: Recommend further therapy services in a [...] NA = Not Assessed, I = Independent, CT = Modified Independent, Sup = Supervised, Set up = Physical Assistance for Set-up Only, Min = Minimal Assistance, Mod = Moderate Assistance, Max = Max assistance; Dep = Dependent; AROM = Active Range of Motion;PROM=Passive Rangeof Motion; MMT = Manual Muscle Test; Shld= Shoulder; Add = Adduction; Abd = Abduction [id number] Consult note* Becca Nolan, PT - 01/06/2022 [...] Dep Max Mod Min CG CS DS CT I Comment Roll to right sidelying x Very minimal roll to right for straightening of chux Roll to left sidelying x FIRE PATROLLER initially then guiding hand to bed rail. [...] Guard Assist/Supervision 4 - Non = Modified [place]/Independent Progressive Mobility Level: Level 4 Patient Behavior Goal to Advance to Next Level of Activity Level 0 Obtunded, unable to attend Passive upvoy-ld-flqufl exercises in bed Passive positioning and elevation of extremities Level 1 Attends Passive transfer from bed to chair Participates in active and/or passive exercises in bed or chair Level 2 Attends and achieved Level 1 Sit Upright and dangle legs over the edge of bed or chair Passive transfer from bed to chair Level 3 Attends and achieved Level 2 Perform tvp-dm-awsxj Static standing at bedside Level 4 Attends and achieved Level 3 Standing activities Active transferring from bed to chair Gait training ASSESSMENT: Patient with increased tolerance to upright this session, able to sit edge of bed for 20 minutes and attempt standing however was limited by pain. Continue to recommend further therapy services in a Fdc Setting once medically cleared. Will continue to [...] ROM/strenghtening Becca Nolan (Ellie), PT, DPT Pager: [phone] NA = Not Assessed, I = Independent, CT = Modified Independent, Sup = Supervised, Set up = Physical Assistance for Set-up Only, Min = Minimal Assistance, Mod = Moderate Assistance, Max = Maximal assistance; Dep = Dependent; AROM = Active Range of Motion; PROM = Passive Range of Motion; MMT = Manual Muscle Test [id number] Note* Care Plan Note - Shakira Johnson [...] adult patient will be met Outcome: Progressing [id number] NoteOrthopaedic Surgery - Plan of Care Note Paged re saturated aquacel dressing. Replaced with new dressing - dressing c/d/i - incisions healing appropriately - SILT - Foot warm and well perfused - Wiggles toes lEvira Love MD (Lola) Orthopaedic Surgery, PGY-1 [facility]06-04-2022 Note* Treatment Plan Note - Elvira Love MD - 01/05/2022 9:42 AM EDT Orthopaedic Surgery - Plan of Care Note Paged re saturated aquacel dressing. Replaced with new dressing - dressing c/d/i - incisions healing appropriately - SILT - Foot warm and well perfused - Wiggles toes Elvira (Ailyn) MD Ivan Orthopaedic Surgery, PGY-5 [id number] Note* Care Plan Note - Adolfo Yu [...] adult patient will be met Outcome: Progressing [id number] NoteOCCUPATIONAL THERAPY PROGRESS SUMMARY Patient seen from [...] Dep Max Mod Min CG CS DS CT I Set-Up Cues Comment Feeding X X [...] at therapists * See BP's below BP: Vuujso=618/43 Sitting=92/44 After returned to zjblwz=630/45 Endurance for Self Care: Fair Patient/Family Education: [...] Guard Assist/Supervision 4 - Non = Modified [place]/Independent ASSESSMENT: Pt with minimal improvement in activity [...] per Initial Evaluation. Cecelia More OT/L b. [phone] NA = Not Assessed, I = Independent, CT = Modified Independent, Sup = Supervised, Set up = Physical Assistance for Set-up Only, Min = Minimal Assistance, Mod = Moderate Assistance, Max = Max assistance; Dep = Dependent; AROM = Active Range of Motion;PROM=Passive Range of Motion; MMT = Manual Muscle Test; Shld= Shoulder; Add = Adduction; Abd = AbductionThe [facility]06-03-[facility] SW met with pt and son Kevin at bedside. Family requesting referrals be sent to [facility] and [facility]. SW sent referrals this date. Pt will require pre-cert. No weekend DC. SW will continue to follow. Radha Cox [facility], AIRPORT MAINTENANCE LABORER [phone] [facility]06-03-2022 NotePHYSICAL THERAPY PROGRESS SUMMARY Patient [...] Dep Max Mod Min CG CS DS CT I Comment Roll to right sidelying x [...] to Supine x2 Functional Endurance: impaired BP: Zbbjgc=224/43 Sitting=92/44 After returned to pakyal=038/45 Sitting Balance: Static:poor Dynamic:poor *Pt static sits [...] With Patients permission ordered no equipment via [employer] Order. If any questions contact [facility] DME Provider at [phone]. 6 Clicks Basic Mobility PT 01/04/2022 Difficulty [...] established Plan of Care Patricia ANDREW Beeper #[phone] NA = Not Assessed, I = Independent, CT = Modified Independent, Sup = Supervised, Set up = Physical Assistance for Set-up Only, Min = Minimal Assistance, Mod = Moderate Assistance, Max = Maximal assistance; Dep = Dependent; AROM = Active Range of Motion; PROM = Passive Range of Motion; MMT = Manual Muscle TestThe [employer] [id number] Consult note* Cecelia More, OT - 01/04/2022 [...] Dep Max Mod Min CG CS DS CT I Set-Up Cues Comment Feeding X X [...] at therapists * See BP's below BP: Bozqeh=749/43 Sitting=92/44 After returned to dpwfsp=190/45 Endurance for Self Care: Fair Patient/Family Education: [...] Guard Assist/Supervision 4 - Non = Modified [place]/Independent ASSESSMENT: Pt with minimal improvement in activity [...] per Initial Evaluation. Cecelia More OT/L b. [phone] NA = Not Assessed, I = Independent, CT = Modified Independent, Sup = Supervised, Set up = Physical Assistance for Set-up Only, Min = Minimal Assistance, Mod = Moderate Assistance, Max = Max assistance; Dep = Dependent; AROM = Active Range of Motion;PROM=Passive Rangeof Motion; MMT = Manual Muscle Test; Shld= Shoulder; Add = Adduction; Abd = Abduction [id number] Note* Care Plan Note - Mandy oBo RN - 01/04/2022 4:36 PM EDT Problem: [...] adult patient will be met Outcome: Progressing [id number] Consult note* Patricia Matta - 01/04/2022 3:16 [...] Dep Max Mod Min CG CS DS CT I Comment Roll to right sidelying x [...] to Supine x2 Functional Endurance: impaired BP: Uwhbzc=605/43 Sitting=92/44 After returned to xojmol=064/45 Sitting Balance: Static:poor Dynamic:poor *Pt static sits [...] With Patients permission ordered no equipment via [employer] Order. If any questions contact [facility] DME Provider at [phone]. 6 Clicks Basic Mobility PT 01/04/2022 Difficulty [...] established Plan of Care Patricia ANDREW Beeper #[phone] NA = Not Assessed, I = Independent, CT = Modified Independent, Sup = Supervised, Set up = Physical Assistance for Set-up Only, Min = Minimal Assistance, Mod = Moderate Assistance, Max = Maximal assistance; Dep = Dependent; AROM = Active Range of Motion; PROM = Passive Range of Motion; MMT = Manual Muscle Test [id number] NoteOccupational Therapy Note Duplicate referral - pt on program wit recommendation for SNF Cecelia More OT/L b. [phone] [id number] NoteORTHOPAEDIC SURGERY PROGRESS NOTE ASSESSMENT AND PLAN: [...] Omolola (Ailyn) MD Ivan Orthopaedic Surgery, PGY-1 [facility]q [facility]06-03-2022 Consult note* Cecelia More OT - 01/04/2022 7:46 AM EDTAssociated Order(s): IP OCCUPATIONAL THERAPY SERVICE REQUEST Occupational Therapy Note Duplicate referral - pt on program wit recommendation for SNF Cecelia More OT/L b. [phone] [id number] NoteOCCUPATIONAL THERAPY INITIAL EVALUATION Patient seen from [...] of treatment Appearance: Frail, Oxygen, IV and Cortse Alertness: Lethargic Affect: flat Cooperation/Behavior: Pleasant and cooperative; confused Communication: demonstrates some word finding difficulties Pain: Pain ratin/10, Location: right thigh/hip Pain Relief Interventions Implemented: Positioning Self Care: Assistance Level Dep Max Mod Min CG CS DS CT I Set-Up Comment Feeding X To manage drinks to mouth with straw Grooming/Hygiene X BUE ROM rigid/guarded Bathing:UB X Bathing:LB X Dressing:UB X Dressing: LB X Toileting X Cortes in place Transfers/Bed Mobility: pt had received 1 unit of blood prior to mobility Assistance Level Dep Max Mod Min CG CS DS CT I Set-Up Comment Toilet Transfers Bed Transfers [...] Guard Assist/Supervision 4 - Non = Modified [place]/Independent ASSESSMENT: Recommend further therapy services in a [...] discuss the evaluation (more content not included)...[facility] [id number] Note* Care Plan Note - Mandy Boo [...] adult patient will be met Outcome: Progressing [id number] Consult note* Cecelia More OT - 01/03/2022 [...] Dep Max Mod Min CG CS DS CT I Set-Up Comment Feeding X To manage drinks to mouth with straw Grooming/Hygiene X BUE ROM rigid/guarded Bathing:UB X Bathing:LB X Dressing:UB X Dressing: LB X Toileting X Cortes in place Transfers/Bed Mobility: pt had received 1 unit of blood prior to mobility Assistance Level Dep Max Mod Min CG CS DS CT I Set-Up Comment Toilet Transfers Bed Transfers [...] Guard Assist/Supervision 4 - Non = Modified [place]/Independent ASSESSMENT: Recommend further therapy services in a [...] plan and goals. Cecelia More OT/L b. [phone] NA = Not Assessed, I = Independent, CT = Modified Independent, Sup = Supervised, Set up = Physical Assistance for Set-up Only, Min = Minimal Assistance, Mod = Moderate Assistance, Max = Max assistance; Dep = Dependent; AROM = Active Range of Motion;PROM=Passive Rangeof Motion; MMT = Manual Muscle Test; UB = Upper Body; LB = Lower Body [id number] NotePHYSICAL THERAPY ACUTE EVALUATION Referral received, chart [...] and pain) Patient Identified Goal(s): None stated FABRIC FINISHER Status: (per patient - verified with sons [...] With Patients permission ordered no equipment via [employer] Order. If any questions contact [facility] DME Provider at [phone]. 6 Clicks Basic Mobility PT 01/03/22 Difficulty [...] does the (more content not included)... [employer] [facility] [id number] NoteORTHOPAEDIC SURGERY PROGRESS NOTE ASSESSMENT AND PLAN: [...] O[place] (Ailyn) MD Ivan Orthopaedic Surgery, PGY-1 [facility] Consult note* Nanci Austin, PT - [...] and pain) Patient Identified Goal(s): None stated FABRIC FINISHER Status: (per patient - verified with sons [...] With Patients permission ordered no equipment via [employer] Order. If any questions contact [facility] DME Provider at [phone]. 6 Clicks Basic Mobility PT 01/03/22 Difficulty [...] Therefore, recommend further therapy services in a Fdc Setting once medically cleared. Will continue tofollow [...] NA = Not Assessed, I = Independent, CT = Modified Independent, Sup = Supervised, Set up = Physical Assistance for Set-up Only, Min = Minimal Assistance, Mod = Moderate Assistance, Max = Max assistance; Dep = Dependent; AROM = Active Range of Motion; PROM = Passive Range of Motion; MMT = Manual Muscle Test; LE = Lower Extremity [id number] Note* OP Note - Eric Sher MD - 01/02/2022 4:24 PM EDT Name: TORIBIO BETTS MR#: [id number] [facility]#: [id number] Date of Procedure: 01/02/2022 ATTENDING SURGEON: Eric Shre MD FIRST SURGEON: Joselito Patel PREOPERATIVE DIAGNOSIS: Right proximal 3rd femur shaft fracture. POSTOPERATIVE DIAGNOSIS: Right proximal 3rd femur shaft fracture. PROCEDURE PERFORMED: IM nail of right femur fracture. CPT code 79031. ANESTHESIA: GETA. ESTIMATED BLOOD LOSS: 200 mL. [...] personnel confirmed the time-out. I used the Curlew table to pull some in-line traction, a [...] Dict: 01/02/2022 11:34:47 TRANS: 01/02/2022 14:21:14 JOB: [id number] DictJob#: [id number] Note* Care Plan Note - Araseli Diego [...] Outcome: Progressing Note: SNF pending medical clearance. [id number] Consult note* Cecelia Stiles PT - 01/02/2022 11:15 AM EDT PHYSICAL THERAPY Continue to follow this Patient who is currently in OR for Fixation of (R) Femoral Shaft Fx Will HOLD PT Eval at this time and follow up post-operatively. Report to follow. Cecelia Stiles PT, MPT B) [phone] [id number] Note* Brief Operative Note - Joselito Patel MD - 01/02/2022 10:42 AM EDT Brief Operative Note MAIN OR 08 [address]ip 86 year old female Surgical Contact Serial Number: [id number] Preoperative Diagnosis: Other fracture of right femur, initial encounter for closed fracture (HCC) [S72.8X1A] Postoperative Diagnosis: * Other fracture of right femur, initial encounter for closed fracture (HCC) [S72.8X1A] Procedures: Surgical CPTs Procedures OPEN TREATMENT, FEMORAL SHAFT FRACTURE, W/INSERTION, INTRAMEDULLARY IMPLANT, W/WO SCREW/CERCLAGE No data filed Surgeon(s): Surgeon(s): Eric Sher MD Staff: Scrub: Christine Matson Remelt Furnace Expediter Nurse: Heather Pedroza RN Clinical Quality Rn: Lety Clarke Parking Analyst: Joselito Patel MD; Salma Mae MD Anesthesia: General Anesthesiologist: Davide Mcintosh DO CAA: Henrique Quijano CAA DRILL PRESSER: Erika Islas APRN-CRNA Specimen(s): * No specimens [...] by Joselito Patel MD 01/02/2022 11:51 AM [facility] Work Phone: 1(679) 870-974206-01-2022 Note* Anesthesia Attestation - Davide Mcintosh DO - 01/02/2022 9:54 AM EDT Anesthesia Attestation ATTESTATION OF INFORMED CONSENT FOR ANESTHESIA Anesthesia options were discussed with the patient and/or legal agency service representative. The risks, benefits and alternatives were reviewed. Questions regarding anesthesia were answered. Patient and/or legal agency service representative knows such anesthetics and procedures may be performed by Resident physicians, Certified Anesthesiologist Assistants, or Certified Nurse Anesthetists under the supervision of a physician. The patient /or the patient s legal representativeagree with the plan for anesthesia. [id number] Note* Blood Attestation - Davide Mcintosh DO - 01/02/2022 9:54 AM EDT Blood Attestation ATTESTATION OF INFORMED CONSENT FOR BLOOD The transfusion of blood and/or blood components were discussed with the patient and/or legal agency service representative. The risks, benefits and alternatives were reviewed. Questions regarding blood transfusions were answered. The patient /or the patient s legal agency service representative agree with the plan for transfusion of blood and/or blood components. [id number] NoteORTHOPAEDIC SURGERY PROGRESS NOTE A/P: 86 year [...] Omolola (Ailyn) MD Ivan Orthopaedic Surgery, PGY-1 [facility]06-01-2022 Consult note* Mari Hung OT - 01/02/2022 7:34 AM EDT Occupational Therapy Per chart review, pt was cleared for OR for CMN R femur with Dr. Fierro by trauma team on 01/01/22. Pt planning for OR this date. Will hold OT eval until post-op. Mari Hung OTR/L [id number] NoteTRAUMA SURGERY PLAN OF CARE NOTE 86 year old???female???brought in by EMS as a transfer from [facility]???following fall from standing. She fell and her leg twisted under her. She is on Eliquis (Last Dose 12/31 AM). History of CHF, ECHO this AM showing moderate pHTN, nml EF. No other acute traumatic injuries at this time. From trauma standpoint, patient is suitable to proceed to OR with orthopedics. Thoams Dailey MD Trauma Surgery, PGY-4The [facility]05-31-2022 Note* Care Plan Note - [...] met Outcome: Progressing Note: Pending PT/OT eval. [id number] NotePHYSICAL THERAPY Consult received and appreciated. Chart reviewed in full. Plan it OR this date for fixation of (R) Femoral Shaft Fx. Will HOLD PT Evaluation until post-operatively Full report to follow. Cecelia Stiles, PT, MPT (A) [phone] [facility]05-31-2022 Note Occupational Therapy Chart Review Admit Date: 01/01/22 OT Referral Date: 01/01/22 Service: Trauma Reason for Admit: transfer from [facility] s/p fall from standing Diagnosis: R femoral shaft fx Procedures: planning for OR this date for fixation of R femur Precautions: high falls, full code, NPO, progressive mobility, NWB RLE (pre-op) Home/Social: Will ascertain during evaluation post-op. Evaluation to follow. Please update weightbearing status post-op. Mari Hung, OTR/LThe [facility]05-31-2022 Consult note* Cecelia Stiles, PT - 01/01/2022 8:33 AM EDT PHYSICAL THERAPY Consult received and appreciated. Chart reviewed in full. Plan it OR this date for fixation of (R) Femoral Shaft Fx. Will HOLD PT Evaluation until post-operatively Full report to follow. Cecelia Stiles, PT, MPT (B) [phone] [id number] Consult note* Mari Hung OT - 01/01/2022 7:31 AM EDT Occupational Therapy Chart Review Admit Date: 01/01/22 OT Referral Date: 01/01/22 Service: Trauma Reason for Admit: transfer from [facility] s/p fall from standing Diagnosis: R femoral shaft fx Procedures: planning for OR this date for fixation of R femur Precautions: high falls, full code, NPO, progressive mobility, NWB RLE (pre-op) Home/Social: Will ascertain during evaluation post-op. Evaluation to follow. Please update weightbearing status post-op. Mari Hung OTR/L [id number] NoteSurgical Attestation: I have reviewed the patient's History and Physical Examination. I have personally seen and evaluated the patient, repeating cloud portions. There is no significant interval change. Surgery is still indicated. Yes Consent reviewed and signed by patient/family: Yes Operative site verified and marked: Yes Trever Umana MD Orthopedic Surgery, PGY2 Pager: [phone] [facility]05-31-2022 Consult note* Eric Sher MD [...] aggregated findings and impressions. Eric Sher MD [facility] Work Phone: 1(187) 408-225205-31-2022 History and physical note* Trever Umana MD [...] Trever Umana MD Orthopedic Surgery, PGY2 Pager: [phone] [facility] Work Phone: 1(772) 888-555905-31-2022 History and physical note* Trever Umana MD [...] Trever Umana MD Orthopedic Surgery, PGY2 Pager: [phone] * Ember Saravia MD - 01/01/2022 12:47 AM EDT [facility] DIVISION OF ACUTE CARE SURGERY TRAUMA SURGERY HISTORY AND PHYSICAL Toribio Betts [id number] 01/01/22 BASIC INJURY INFORMATION: Level of activation: [...] in by EMS as a transfer from [facility] following fall from standing. She fell and [...] status: Single Living status: Home Primary language: [place] Functional status: Independent Impairments: Hearing loss Assistive [...] above. Ember Saravia SICU / TICU Fellow [phone] Associated attestation - Navin Matson DO - [...] Trauma / Emergency general surgery My pager: [phone] ACS resident: -1131 (admitted) / -6768 (new pts) documented in this [id number] Note* Care Plan Note - Rajwinder Cisneros [...] adult patient will be met Outcome: Progressing [id number] Physician Emergency department Note* Miguel Angel Shah MD - 01/01/2022 12:48 AM EDT EMERGENCY DEPARTMENT - VISIT NOTE HISTORY OF PRESENT ILLNESS Chief Complaint Patient presents with Fall Cat 2- Pt tx from [facility] via [facility], per report pt fell, on eliquis, right femur fx found at OSH. [place]: not needed - patient preferred language is [place]. The history is provided by the Patient. [...] twisted under her. She was seen at [facility], found to have right comminuted femur fracture and transferred to [facility].Given Dilaudid prior to arrival. Patient is [...] of bleeding disorders Pertinent Social History: denies [facility] tobacco and drug use PHYSICAL [...] Ventricular rate of 99, Normal axis, normal IN,prolonged QT, ST T changes: No ST-T wave [...] He was given Zofran in the trauma [facility] for nausea. Workup at outside hospital otherwise [...] Falguni Hall D.O. PGY3- Emergency Medicine Pager [phone] ATTENDING NOTE I was present with the resident during the history and exam and during the obtaining of the cloud andcritical portions of the history and exam. I reviewed the resident's documentation and discussed the case with the resident and agree with the resident's medical decision making as documented in the residents note. Miguel Angel Shah MD [facility] Work Phone: 1(865) 115-248105-31-2022 Emergency department Note* Miguel Angel Shah MD - 01/01/2022 12:48 AM EDT EMERGENCY DEPARTMENT - VISIT NOTE HISTORY OF PRESENT ILLNESS Chief Complaint Patient presents with Fall Cat 2- Pt tx from [facility] via [facility], per report pt fell, on eliquis, right femur fx found at OSH. [place]: not needed - patient preferred language is [place]. The history is provided by the Patient. [...] twisted under her. She was seen at [facility], found to have right comminuted femur fracture and transferred to [facility].Given Dilaudid prior to arrival. Patient is [...] Ventricular rate of 99, Normal axis, normal IN,prolonged QT, ST T changes: No ST-T wave [...] He was given Zofran in the trauma [place] for nausea. Workup at outside hospital otherwise [...] Falguni Hall D.O. PGY3- Emergency Medicine Pager [phone] ATTENDING NOTE I was present with the resident during the history and exam and during the obtaining of the cloud andcritical portions of the history and exam. I reviewed the resident's documentation and discussed the case with the resident and agree with the resident's medical decision making as documented in the residents note. Miguel Angel Shah MD documented in this [id number] History and physical note* Ember Saravia MD - 01/01/2022 12:47 AM EDT [facility] DIVISION OF ACUTE CARE SURGERY TRAUMA SURGERY HISTORY AND PHYSICAL [facility] [id number] 01/01/22 BASIC INJURY INFORMATION: Level of activation: [...] in by EMS as a transfer from [facility] following fall from standing. She fell and [...] status: Single Living status: Home Primary language: [place] Functional status: Independent Impairments: Hearing loss Assistive [...] above. Ember Saravia SICU / TICU Fellow [phone] Associated attestation - Navin Matson DO - 01/01/2022 5:07 PM EDT Teaching Physician Note: I saw and evaluated the patient. I personally obtained the cloud and critical portions of the historyand physical exam. I reviewed the resident's documentation and discussed the patient with the resident. I agree with the resident's medical decision making as documented in the resident's note. Transf er from [facility]. Complex right pelvic fracture. Neurovascularly intact. Admit to our service given the age and complexity of the fracture. Surgery pending preop evaluation and workup. L. Ray White, DO Critical care / Trauma / Emergency general surgery My pager: [phone] ACS resident: -[phone] (admitted) / -[phone] (new pts) [facility] Work Phone: 1(341) 502-975305-30-2022 Evaluation + Plan noteExtracted from: Title:ED Note [...] Date:02/19/2022 11:00:00 AM Scheduled Provider:Janna MANN MD Location:[facility] Appointment Type: Open Future Scheduled Tests Laboratory* HgbA1c 06/27/21 * CBC w/ Auto Diff 06/27/21 * Comprehensive Metabolic Panel 06/27/21 * Lipid Panel 06/27/21 [facility]03-04-2022 NoteEchocardiology Procedure Exam Date/Time Accession # Ordering Echo Transthoracic 10/01/2021 12:21 EST [id number] Angelina SMILEY CNP Complete CPT code 36053 Reason for Exam (Echo Transthoracic Complete) I25.10;Mitral [...] Axel Perales MD Transcribed by: samira Technologist[facility] PROCEDURE: 48-hour Holter monitor REFERRING PHYSICIAN: [...] BY: Axel Perales M.D. ls Dictated: 09/26/2021 [id number] Transcribed: 09/26/2021 cc:FIORDALIZA MorrisOhio Valley HospitalComment on above:Result Comment: Electronically Signed By: Axel Perales MD\.br\Date and Time Signed: 09/26/21 12:25 ESTEvaluation + Plan note Future Appointments Appointment Date:01/30/2022 09:30:00 AM Scheduled Provider:RINA BHATIA PA-C [facility] New Patient Appointment Date:02/19/2022 11:00:00 AM Scheduled Provider:Janna MANN MD Location:[facility] Appointment Type:FM Open Future Scheduled Tests Laboratory* HgbA1c 06/27/21 * CBC w/ Auto Diff 06/27/21 * Comprehensive Metabolic Panel 06/27/21 * Lipid Panel 06/27/21 [facility] Future Appointments Appointment Date:03/13/2022 02:00:00 PM Scheduled Provider:RINA BHATIA PA-C Location:[facility] Appointment Type:URO Office Visit Future Scheduled Tests Laboratory* HgbA1c 06/27/21 * CBC w/ Auto Diff 06/27/21 * Comprehensive Metabolic Panel 06/27/21 * Lipid Panel 06/27/21 [facility] evaluation + Plan note Future Appointments Appointment Date:03/13/2022 02:00:00 PM Scheduled Provider:RINA BHATIA PA-C Location:[facility] Appointment Type:URO Office Visit Appointment Date:04/18/2022 02:30:00 PM Scheduled Provider:Angelina SMILEY CNP [facility] Type:Cardiology Follow Up (FT) Future Scheduled Tests Laboratory* HgbA1c 06/27/21 * CBC w/ Auto Diff 06/27/21 * Comprehensive Metabolic Panel 06/27/21 * Lipid Panel 06/27/21 [facility] Future Appointments Appointment Date:10/10/2022 01:15:00 PM Scheduled Provider:Angella MAYERS, Axel Bravo [facility] Type:Cardiology Follow Up (FT) Future Scheduled Tests Laboratory* HgbA1c 06/27/21 * CBC w/ Auto Diff 06/27/21 * Comprehensive Metabolic Panel 06/27/21 * Lipid Panel 06/27/21 [facility] noteNo Assessments Information Available [facility] Diagnosis Other fracture of right femur, initial encounter for closed fracture (HCC)- Primary Fall, initial encounter Ventricular premature depolarization Other premature beats Other hypertrophic cardiomyopathy (HCC) Other hypertrophic cardiomyopathy Abnormal electrocardiogram (ECG) (EKG) documented in [facility] Diagnosis Exudative age-related macular degeneration of [...] hypo-osmolality Surgical History right femur [facility]ailing [facility] Information Other Hospital course Narrative No data available for this section [facility] No data available for this section [facility] No data available for this section [facility] Summary Purpose Family History No Family [...] 1 VIEW AP OR PA Ip [address] [place] [address] [facility] DIAGNOSTIC RADIOLOGY [address] [place] [address] [place] [address] Referral ID Status Reason Start Date Expiration Date Visits Re quested Visits Authorized [id number] Closed 01/07/2022 01/07/2023 1 1 Specialty Diagnoses / Procedures Referred By Contac t Referred To Contact Radiology Procedures XR FLUORO SUPPORT ONLY IN SURGERY XR RT FEMUR ONE VIEW Trever Umana MD [address] [place] [address] [facility] [address] [place] [address] [place] [address] Referral ID Status Reason Start Date Expiration Date Visits Re quested Visits Authorized [id number] Closed 01/01/2022 01/01/2023 1 1 Specialty Diagnoses / Procedures Referred By Contac t Referred To Contact Radiology Procedures CT BODY IMAGE IMPORT(AUGUSTIN) DOWNLOAD POWERSHARE IMAGES TO Ron Haq MD [address] [place] [address] [address] [place] [id number] [facility] DI[facility]NOST[facility] RADIOLOGY [address] [place] [address] [place] [address] Referral ID Status Reason Start Date Expiration Date Visits Re quested Visits Authorized [id number] Closed 01/01/2022 01/01/2023 1 1 Specialty Diagnoses / Procedures Referred By Contac t Referred To Contact Radiology Procedures XRAY CHEST IMAGE IMPORT(AUGUSTIN) Ron Bach MD [address] [place] [address] [place] [address] [facility] [address] [place] [address] [place] [address] Referral ID Status Reason Start Date Expiration Date Visits Re quested Visits Authorized [id number] Closed 01/01/2022 01/01/2023 1 1 Specialty Diagnoses / Procedures Referred By Contac t Referred To Contact Radiology Procedures XRAY UPPER EXTREMITY IMAGE IMPORT(AUGUSTIN) Ron Bach MD [address] [place] [address] [place] [address] [facility] [address] [place] [address] [place] [address] Referral ID Status Reason Start Date Expiration Date Visits Re quested Visits Authorized [id number] Closed 01/01/2022 01/01/2023 1 1 Specialty Diagnoses / Procedures Referred By Contac t Referred To Contact Radiology Procedures XRAY PELVIS IMAGE IMPORT(AUGUSTIN) Ron Bach MD [address] [place] [address] [place] [address] [facility] [address] [place] [address] [place] [address] Referral ID Status Reason Start Date Expiration Date Visits Re quested Visits Authorized [id number] Closed 01/01/2022 01/01/2023 1 1 Specialty Diagnoses / Procedures Referred By Contac t Referred To Contact Radiology Procedures XRAY LOWER EXTREMITY IMAG IMPORT(AUGUSTIN) Ron Bach MD [address] [place] [address] [place] [address] [facility] [address] [place] [address] [place] [address] Referral ID Status Reason Start Date Expiration Date Visits Re quested Visits Authorized [id number] Closed 01/01/2022 01/01/2023 1 1 Specialty Diagnoses / Procedures Referred By Contac t Referred To Contact Radiology Procedures CT NEURO IMAGE IMPORT(AUGUSTIN) Ron Bach MD [address] [place] [address] [place] [address] [facility] [address] SCAN Referral ID Status Reason Start Date Expiration Date Visits Re quested Visits Authorized [id number] Closed 01/01/2022 01/01/2023 1 1 Referral ID Status Reason Start Date Expiration Date Visits Re quested Visits Authorized [id number] Closed 01/01/2022 01/01/2023 1 1 Specialty Diagnoses / Procedures Referred By Marlin t Referred To Contact Radiology Procedures CT BODY IMAGE IMPORT(AUGUSTIN) Ron Bach MD [address] [place] [address] [place] [address] [facility] [address] SCAN Referral ID Status Reason Start Date Expiration Date Visits Re quested Visits Authorized [id number] Closed 01/01/2022 01/01/2023 1 1 Specialty Diagnoses / Procedures Referred By Contact Referred To Contact Cardiovascular Testing Emergency Medicine [address] [place] [address] [facility] CARD NON INVASIVE [address] [place] [address] Referral ID Status Reason Start Date Expiration Date Visits Re quested Visits Authorized [id number] Closed 01/01/2022 01/01/2023 1 1 Scheduling Instructions [...] call the [facility] at [phone] (BEAT) if you are unable to keep [...] Expiration Date V isits Requested Visits Authorized [id number] Authorized 01/01/2022 01/01/2023 1 1 Question Answer Clinical Indication for procedure pre-op clearance. h/o A-fib, valve disease, heart failure What day do you want the patient scheduled for? 01/01/2022 Additional Source Comments INFORMATION SOURCE (unrecogn ized section and content) DATE CREATED AUTHOR 12/12/2020 [facility] DATE CREATED AUTHOR AUTHOR'S ORGANIZ ATION 01/19/2022 [facility] DATE CREATED AUTHOR AUTHOR'S ORGANIZ ATION 05/03/2022 Mel[facility] DATE CREATED AUTHOR AUTHOR'S ORGANIZ ATION 08/06/2022 [facility] DATE CREATED AUTHOR AUTHOR'S ORGANIZ ATION 09/18/2023 [facility] EPIC Reason for Visit (unrecogniz [...] TRAUMA - Fall Hip FX Procedures [facility] [address] Phone: [phone] [facility] [place] [address] Phone: [phone] Referral ID Status Reason Start Date Expiration Date Visits Re quested Visits Authorized [id number] 3 3 Reason Comments Follow-up Scheduled Active [...] Eun Alicea RN)2216 (Given - Provider: Sapna nSyder RN) 0850 (Given - Provider: Chai Garcia, [...] Care Team (unrecognized sect ion and content) 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 [employer] provides no warranty or guarantee of the accuracy or completeness of information in this document.
[2023-12-05] VITALS (9 sets, daily range): BP systolic 158–162; BP diastolic 76–84; PULSE 74–104; TEMP 36.5–36.6; O2SAT 81–97
[2023-12-05 05:28] LABS: Anion Gap 13.2; BUN Creatinine Ratio 20.7; Calcium 9.5 mg/dL (8.5-10.1); Carbon Dioxide 24.7 mmol/L (21.0-32.0); Chloride 104 mmol/L (98-107); Estimated GFR (African America >60 (>=60); Estimated GFR (Non-African Ame >60 (>=60); Glucose 161 mg/dL (74-106); Potassium 3.9 mmol/L (3.5-5.1); Sodium 138 mmol/L (136-145)
[2023-12-05 06:17] LABS: Hematocrit 34.9 % (36.0-48.0); Hemoglobin 11.5 g/dL (12.0-16.0); Mean Corpuscular Hemoglobin 29.5 pg (26.7-34.0); Mean Corpuscular Volume 89.5 fL (81.0-99.0); Mean Platelet Volume 10.5 fL (9.5-13.5); Platelet Count 174 10^3/uL (150-450); Red Cell Distribution Width 12.8 % (11.0-15.0); White Blood Count 13.2 10^3/uL (4.0-11.0)
--- NOTE | 2023-12-05 08:02 | CM.NOTE ---
Rounds made with Dr. Rodney, pt comes from [facility]. No discharge today and will continue with IV antibiotics. PT and OT will evaluate pt today for further discharge recommendations.
--- NOTE | 2023-12-05 08:17 | XR_ITS ---
[facility] [place] [id number] Patient Name: TORIBIO MASTERS MRN: [id number] date: 1935 Sex: F Assigned Patient Location: [place] Current Patient Location: [place] Accession/Order Number: [id number] Exam Date: 12/05/2023 08:30 Report Date: 12/05/2023 08:57 At the request of: JERMAINE BRIAN Procedure: XR chest 1V EXAM: XR chest 1V HISTORY: Hypoxia COMPARISON: 12/04/2023 TECHNIQUE: AP semierect FINDINGS: LUNGS: Calcified tracheobronchial tree. Some mild patchy infiltrates with peripheral lobular septal thickening VASCULATURE: Mildly increased pulmonary vasculature. PLEURA: No pneumothorax, effusion, or pleural thickening. CARDIAC: Prominent heart size MEDIASTINUM: No visible mass or adenopathy. BONES: No fracture or visible bone lesion. OTHER: Negative. XR/XR chest 1V IMPRESSION: Mild pulmonary vascular congestion Electronically authenticated by: DAVIDE SALAS Date: 12/05/2023 08:57
[2023-12-05] MEDS: OMEPRAZOLE 20 MG CAPSULE.DR PO (09:33)
[2023-12-05] MEDS: ISOSORBIDE DINITRATE 30 MG TABLET PO (09:33)
[2023-12-05] MEDS: OXYBUTYNIN CHLORIDE 5 MG TAB XL PO (09:33)
[2023-12-05] MEDS: CLOPIDOGREL BISULFATE 75 MG TABLET PO (09:33)
[2023-12-05] MEDS: DOCUSATE SODIUM 100 MG CAPSULE PO ×2 (09:33→21:12)
[2023-12-05] MEDS: CALCIUM CARBONATE 600 MG/VITAMIN D3 400 IU TABLET 1 TAB PO (09:33)
[2023-12-05] MEDS: CEPHALEXIN 500 MG CAPSULE PO (09:34)
[2023-12-05] MEDS: SENNOSIDES 8.6 MG TABLET 8.59999999999999964 MG PO (09:34)
[2023-12-05 09:35] LABS: Bilirubin Urine NEGATIVE (NEGATIVE); Blood Urine SMALL (NEGATIVE); Clarity Urine CLEAR (CLEAR); Color Urine YELLOW (YELLOW); Glucose Urine UA NEGATIVE (NEGATIVE); Ketones Urine NEGATIVE (NEGATIVE); Leukocyte Esterase Urine NEGATIVE (NEGATIVE); Nitrite Urine NEGATIVE (NEGATIVE); Protein Urine TRACE mg/dL (NEG/TRACE); Specific Gravity Urine 1.025 (1.005-1.025); Urobilinogen Urine 0.2 EU/dL (0.2-1.0)
[2023-12-05] MEDS: APIXABAN 5 MG TABLET 2.5 MG PO ×2 (09:35→21:12)
[2023-12-05] MEDS: SERTRALINE HCL 50 MG TABLET 25 MG PO (09:35)
[2023-12-05] MEDS: METOPROLOL TARTRATE 25 MG TABLET PO ×2 (09:35→21:12)
[2023-12-05] MEDS: LORAZEPAM 0.5 MG TABLET 0.25 MG PO (09:36)
[2023-12-05] MEDS: TRAMADOL HCL 50 MG TABLET PO (09:37)
--- NOTE | 2023-12-05 09:41 | SWNOTE1 ---
Pt is from [facility] memory unit. SW sent over updates to [facility].
--- NOTE | 2023-12-05 09:47 | PC.NURSE ---
Patient straight cathed for UA. C/o pain to legs when patient moved legs. 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 UA obtained and sent to lab. Urine was yellow in color and clear. made awar that procedure was completed and can go back into the patient's room.
--- NOTE | 2023-12-05 09:59 | P.HP_ITS ---
<Statement entered by Rishi Rodney MD - 12/06/23 08:28> This documentation has been reviewed and approved. Patient seen and evaluated at the bedside. Agree with input and findings from GUILLOTINE TRIMMER notations. Further workup for reasoning for fall is ongoing HPI H&P: HPI History of Present Illness Chief complaint: Lower Extremity Pain from fall INABILITY WALK Narrative: 12/05/23 0905 This is an 88-year-old female patient with a past medical history as outlined below including Alzheimer's dementia residing in a memory care unit, A-fib on Eliquis, DM2 (diet controlled), hyperlipidemia, hypertension, heart failure (not on diuretics), and hypertrophic cardiomyopathy; who presented to the ED from a local [facility] after suffering a witnessed fall. The patient was apparently ambulating with her walker and fell backwards striking her head on a cabinet and her buttocks on the ground. She reportedly was complaining of right hip pain and was brought to the ED for further evaluation. Workup in the ED revealed hypoxia (87% on room air on arrival), uncontrolled hypertension (198/95), leukocytosis (13.2), lactic acidosis (2.7), and hyperglycemia (161). The patient does not use O2 at baseline at home. Imaging studies including CT scan of the head and cervical spine, chest x-ray, femur x- ray, foot x-ray, tib-fib x-ray, and pelvis x-ray were negative for acute abnormalities. A lumbar spine XR revealed an L1 compression deformity of indeterminate age w/ 30% loss of height. As the patient continued to complain of pain, was unable to walk, and was hypoxic she was admitted in observation to the hospitalist service late last night. At the time of my exam the patient is resting in bed. She is continually frowning and anxious and yelling out if anyone touches her. On specific questioning regarding areas of pain the patient continues to deny pain at any specific place, but frequently yells out don't hurt me when anyone touches her. She is not in respiratory distress and is satting well on 3 L O2 supplementation. Nursing will attempt to wean off her oxygen today. Repeat chest x-ray this morning continues to show mild pulmonary vascular congestion. Her BNP in the ER was within normal limits, but we will repeat this morning. If elevated we will consider obtaining a 2D echo. The patient's last 2D echo was in May 2023 and revealed an LVEF of 60 to 65%, grade 2 diastolic dysfunction, mild dilatation of the LA, moderate mitral regurg. The patient will be changed to inpatient status due to her suspected acute compression fracture, acute hypoxic respiratory failure, hypertensive urgency, and leukocytosis. We clinically suspect a UTI and a UA will be obtained by nursing via straight cath today as they have been unable to obtain a urinary sample to date. ADDENDUM 1030: UA unremarkable w/ no evidence of UTI. Opioid HPI Opioid Management Most Recent Opioid Data: Last Pain Scale 0 12/05/23 11:17 Last Pain Assessment 12/05/23 10:00 Last MAR Pain Assessment 12/05/23 11:17 Last ORT Total Score 0 12/04/23 23:20 Last ORT Risk Category Low Risk 12/04/23 23:20 Review of Systems ROS Status of ROS unobtainable due to mental status [facility] Medical History (Updated 12/05/23 @ 10:55 by Chata Solo NP) Hypertrophic cardiomyopathy ?I42.2 - Other hypertrophic cardiomyopathy (ICD-10) CAD (coronary artery disease) ?I25.10 - Atherosclerotic heart disease of [place] coronary artery without angina pectoris (ICD-10) Paroxysmal atrial fibrillation ?I48.0 - Paroxysmal atrial fibrillation (ICD-10) Hyperlipidemia ?E78.5 - Hyperlipidemia, unspecified (ICD-10) Type 2 diabetes mellitus ?E11.9 - Type 2 diabetes mellitus without complications (ICD-10) Dementia ?F03.90 - Unspecified dementia, unspecified severity, without behavioral disturbance, psychotic disturbance, mood disturbance, and anxiety (ICD-10) Chronic heart failure with preserved ejection fraction (HFpEF) ?I50.32 - Chronic diastolic (congestive) heart failure (ICD-10) PVCs (premature ventricular contractions) ?I49.3 - Ventricular premature depolarization (ICD-10) Hypo-osmolality and hyponatremia ?E87.1 - Hypo-osmolality and hyponatremia (ICD-10) Acute respiratory disease ?J06.9 - Acute upper respiratory infection, unspecified (ICD-10) Hypertension ?I10 - Essential (primary) hypertension (ICD-10) Ventricular premature depolarization ?I49.3 - Ventricular premature depolarization (ICD-10) GERD (gastroesophageal reflux disease) ?K21.9 - Gastro-esophageal reflux disease without esophagitis (ICD-10) Cerebral infarction ?I63.9 - Cerebral infarction, unspecified (ICD-10) Atrial fibrillation ?I48.91 - Unspecified atrial fibrillation (ICD-10) Major depressive disorder ?F32.9 - Major depressive disorder, single episode, unspecified (ICD-10) Anemia ?D64.9 - Anemia, unspecified (ICD-10) Pulmonary hypertension ?I27.20 - Pulmonary hypertension, unspecified (ICD-10) Cognitive communication deficit ?R41.841 - Cognitive communication deficit (ICD-10) Surgical History (Updated 12/04/23 @ 23:04 by Rose Belle) Fracture of right femur ?S72.91XA - Unspecified fracture of right femur, initial encounter for closed fracture (ICD-10) Social History (Updated 12/04/23 @ 23:05 by Rose Belle) Within the past year, how often did you have a drink containing alcohol: never Score interpretation: A score less than 3 is consistent with normal alcohol consumption. Smoking status: Never smoker Non-prescribed substance use: denies use Previous occupational history: retired Highest level of school completed/degree received: Associate degree: occupational, technical, vocational program Are you now , , , , never or living with a partner: don't know In a typical week, how many times do you talk on the telephone with family, friends, or neighbors: 3 or more times per week How often do you get together with friends or relatives: 3 or more times per week How often do you attend rastafarian or evangelical services: never Little interest or pleasure in doing things: not at all Feeling down, depressed, or hopeless: not at all Feel stressed/tense/nervous/anxious/difficulty sleeping: not at all Do you think of yourself as: straight/heterosexual Gender Identity: female Meds Home Medications and Allergies Home Medications ?Medication ?Instructions ?Recorded ?Confirmed ?Type albuterol sulfate 90 mcg/actuation 1 inh inhalation Q6H PRN shortness 06/02/23 12/04/23 History breath activated powder inhaler of breath apixaban 2.5 mg tablet (Eliquis) 2.5 mg PO BID 06/02/23 12/05/23 History atorvastatin 40 mg tablet 40 mg PO QPM 06/02/23 12/05/23 History benzonatate 100 mg capsule 100 mg PO TID PRN cough 10/30/23 05/02/24 History cephalexin 500 mg capsule 500 mg PO QDAY 06/02/23 12/04/23 History clopidogrel 75 mg tablet 75 mg PO DAILY 06/02/23 12/04/23 History docusate sodium 100 mg capsule 100 mg PO BID 06/02/23 12/04/23 History (Colace) isosorbide dinitrate 30 mg tablet 30 mg PO DAILY 06/02/23 12/04/23 History metoprolol tartrate 25 mg tablet 25 mg PO BID 06/02/23 12/04/23 History pantoprazole 20 mg tablet,delayed 20 mg PO DAILY 06/02/23 12/04/23 History release sennosides 8.6 mg capsule (senna) 8.6 mg PO DAILY 06/02/23 12/04/23 History sertraline 25 mg tablet 25 mg PO DAILY 06/02/23 12/04/23 History acetaminophen 325 mg capsule 650 mg PO QID PRN fever or pain 12/04/23 12/05/23 History ondansetron HCl 4 mg tablet 4 mg PO Q6H PRN nausea and vomiting 12/04/23 12/05/23 History oxybutynin chloride 5 mg 5 mg PO DAILY 12/04/23 12/05/23 History tablet,extended release 24 hr calcium citrate 315 mg-vitamin D3 1 tab PO DAILY 12/05/23 12/05/23 History 5 mcg (200 unit) tablet (Calcium Citrate + D) loratadine 10 mg tablet (Claritin) 10 mg PO DAILY PRN allergy symptoms 12/05/23 12/05/23 History Allergies Allergy/AdvReac Type Severity Reaction Status Date / Time pravastatin Allergy Unknown Verified 12/04/23 19:34 Exam Constitutional Vital Signs, click to edit/add: Last Vital Signs Temp 97.7 F 12/05/23 04:39 Pulse 94 H 12/05/23 09:33 Resp 16 12/05/23 09:33 BP 162/76 H 12/05/23 04:39 Pulse Ox 96 12/05/23 09:33 O2 Del Method Nasal Cannula 12/05/23 05:23 O2 Flow Rate 3 12/05/23 05:23 Common normals: alert Exam limitations: altered mental status (baseline alzheimer's dementia) General appearance: cooperative (w/ most exam except with moving extremities) and frail appearing Nutritional appearance: underweight Orientation/consciousness: Yes awake, Yes oriented to person and Yes confused; not oriented to place and not oriented to time HENAR Common normals: normocephalic, head/scalp atraumatic, hearing grossly normal bilaterally, external nose normal and moist oral mucous membranes Eye Common normals: PERRL, EOMs intact bilaterally, conjunctivae normal and no scleral icterus Alignment: alignment normal Eyelid: eyelids normal Neck & C-Spine Common normals: full ROM, supple and no JVD Chest Common normals: inspection of chest normal Chest: symmetrical chest wall rise Respiratory Common normals: normal respiratory effort, no retractions, no use of accessory muscles and clear to auscultation bilaterally Effort & inspection: able to speak in complete sentences Auscultation: diminished lung sounds diffuse Cardio Common normals: no JVD, regular rhythm, S1 normal heart sound, S2 normal heart sound, no gallops, no clicks, no rub and peripheral pulses 2+ throughout Heart sounds: murmur (HSM 2/6) GI Common normals: Normal to inspection, nondistended, normoactive bowel sounds present, soft to palpation, no hepatosplenomegaly, no masses and no bruits Palpation: tender Details: suprapubic (distended bladder) Back & Pelvis Common normals: thoracic and lumbar spine normal to inspection Extremity Common normals: normal capillary refill and no pedal edema General: normal exam except as noted; no clubbing and no cyanosis Neuro Gilson Coma Scale: GCS not evaluated Common normals: CN's II-XII intact bilaterally, moves all extremities, no focal motor deficits and no sensory deficits noted Speech: speech normal Motor exam: strength 5/5 throughout Psych Common normals: activity/motor behavior normal Attitude: agitated Mood and affect: anxious and fearful Thought process: confused Memory/cognition: memory grossly impaired and cognition grossly impaired Insight: poor Judgement: poor Results Labs Labs: Short CBC 12/04/23 12/05/23 Range/Units 19:49 06:10 WBC 11.4 H 13.2 H (4.0-11.0) 10^3/uL Hgb 12.5 11.5 L (12.0-16.0) g/dL Hct 38.7 34.9 L (36.0-48.0) % Plt Count 196 174 (150-450) 10^3/uL BMP 12/04/23 12/05/23 19:49 04:32 Sodium 138 138 Potassium 4.0 3.9 Chloride 103 104 Carbon Dioxide 28.9 24.7 BUN 14.0 17.0 Creatinine 0.90 0.82 Glucose 194 H 161 H Calcium 9.4 9.5 Liver Function 12/04/23 Range/Units 19:49 Total Bilirubin 0.6 (0.2-1.0) mg/dL AST 33 (15-37) U/L ALT 33 (14-59) U/L Alkaline Phosphatase 83 (46-116) U/L Albumin 3.3 L (3.4-5.0) g/dL Pulse Oximetry Attestation: I have reviewed the pertinent pulse oximetry results. Imaging Chest x-ray: Radiologist's impression: #1 12/04/23 2100 IMPRESSION: Interstitial prominence, vascular congestion versus atypical infection. #2 12/05/23 0830 IMPRESSION: Mild pulmonary vascular congestion Lumbar spine X-ray: Attestation: I have reviewed the pertinent imaging results. Radiologist's impression: IMPRESSION: 1. Grade 1 anterolisthesis of L4-L5 measuring 9 mm with moderate multilevel degenerative disc disease. 2. Age indeterminate compression deformity of the L1 vertebral body involving approximately 30% loss of height. Correlate with physical exam findings for any tenderness. CT scan - head: Attestation: I have reviewed the pertinent imaging results. Radiologist's impression: IMPRESSION: No acute intracranial abnormalities. Tib-fib X-ray: Attestation: I have reviewed the pertinent imaging results. Radiologist's impression: IMPRESSION: No acute findings. Pelvis X-ray: Attestation: I have reviewed the pertinent imaging results. Radiologist's impression: IMPRESSION: No acute findings. Rt Foot X-ray: Attestation: I have reviewed the pertinent imaging results. Radiologist's impression: IMPRESSION: Degenerative changes of the right foot without acute osseous abnormality. R Femur X-ray: Attestation: I have reviewed the pertinent imaging results. Radiologist's impression: IMPRESSION: No acute findings. CT scan - C Spine: Attestation: I have reviewed the pertinent imaging results. Radiologist's impression: IMPRESSION: No acute traumatic findings of the cervical spine. Assessment and Plan Assessment and Plan (1) Compression fracture of L1 lumbar vertebra: Assessment and Plan: Acute * Adm inpatient * Intractable pain w/ inability to walk * Expect more than a 2 midnight stay for medically necessary hospital care including IV pain medication, O2 supplementation, PT/OT services, frequent monitoring of labs * Age indeterminate compression deformity of L1 on L-spine XR * Likely 2/2 acute fall * Pt unlikely to be able to cooperate with MRI at this time d/t dementia and poor pain control * Plan outpatient follow up with Dr Taylor for possible kyphoplasty * Multimodal pain management - MS IVP, Tramadol, lidoderm patch for pain - titrate dosing or change medication based on clinical response * PT/OT consults for eval and treat * expect limited effectiveness d/t pt's baseline dementia but will attempt (2) Fall: Assessment and Plan: Acute * Witnessed fall at * Struck buttocks and head * CT brain, CT CS - unremarkable * Pelvis, femur, tib/fib, Foot XR - unremarkable * L spine XR w/ L1 compression deformity - see above (3) Acute respiratory failure with hypoxia: Assessment and Plan: Acute * Unclear etiology - differential includes: pulmonary infiltrate vs CHF exacerbation vs pulmonary contusion/impaired inspiratory effort vs other * Initial CXR suggestive of vascular congestion or atypical infiltrate. Repeat CXR to confirms mild vascular congestion w/o overt pulmonary edema or infiltrate * No indication for ABX so far - low threshold to add pending clinical course * BNP in ED and on repeat lab this morning WNL * 2D Echo 06/02/23 - LVEF 60-65%, Grd 2 diastolic dysfunction, LA moderately dilated, Mod mitral regurg * Consider lasix administration pending clinical course * Consider repeat 2D Echo pending clinical course * O2 to keep sats above 90% * Nursing will attempt to wean off O2 supplementation today * No adventitious LS on exam, but diffuse diminished LS noted - supports poor inspiratory effort possibly d/t pain * Will attempt OPEP, but unlikely success d/t advanced dementia (4) Leukocytosis: Assessment and Plan: Acute * No clear infectious source at this time * UA pending * CXR w/ vascular congestion, no definitive infiltrate * Afebrile * Possibly reactive after a fall * Consider ABX pending clinical course (5) Lactic acidosis: Assessment and Plan: Acute * Unclear etiology - consider infectious vs hypoxia vs dehydration vs other * Resolved on repeat labs w/o IVF administration (6) Hypertensive urgency: Assessment and Plan: Acute on chronic * Pt w/ historically labile BPs - avoid aggressive correction of HTN d/t hx of profound hypotension * Likely exacerbated by pain after fall * Continue home metoprolol and Isordil * PRN Hydralazine IVP for uncontrolled HTN (7) Chronic heart failure with preserved ejection fraction (HFpEF): Assessment and Plan: Chronic * Diastolic HF hx, but not on diuretic therapy at baseline * BNP remains WNL despite mild pulmonary vascular congestion on CXR * Consider lasix and/or repeat 2D Echo pending clinical course (8) Type 2 diabetes mellitus: Assessment and Plan: Chronic * w/ uncontrolled hyperglycemia * Diet controlled at baseline * ACHS glucometer checks * Med SSI for glucose correction (9) Paroxysmal atrial fibrillation: Assessment and Plan: Chronic * Continue home Eliquis for CVA prevention * Continue home metoprolol for rate control (10) Dementia: Assessment and Plan: Chronic * Alzheimer's dementia at baseline * Lives in memory care unit Qualifiers: Dementia behavioral or psychological symptom: unspecified whether behavioral, psychotic, or mood disturbance or anxiety Dementia severity: unspecified severity Dementia type: unspecified type Qualified Code(s): F03.90 - Unspecified dementia, unspecified severity, without behavioral disturbance, psychotic disturbance, mood disturbance, and anxiety (11) Major depressive disorder: Assessment and Plan: Chronic * Continue home sertraline
[2023-12-05 10:18] LABS: Urine Microscopic Indicated YES
[2023-12-05 10:20] LABS: Bacteria Urine TRACE #/HPF (NONE SEEN); Cast Seen? NONE SEEN #/LPF (NONE SEEN); Crystals Seen? None Seen #/HPF (None Seen); RBC Urine 0-2 #/HPF (0-2); Squamous Epithelial Cell Urine FEW #/LPF (NONE/RARE); WBC Urine 0-2 #/HPF (NONE SEEN)
[2023-12-05 10:21] LABS: Urine Culture Indicated NO
[2023-12-05 10:36] LABS: Estimated Average Glucose 140 mg/dL; Glycohemoglobin A1C 6.5 % (4.5-6.2)
[2023-12-05 11:27] LABS: Glucometer 172 mg/dL (74-106)
--- NOTE | 2023-12-05 12:20 | DIETREC ---
Recommend 237 mL Ensure Original BID to supplement PO meal intakes.
--- NOTE | 2023-12-05 13:17 | SWNOTE1 ---
SW spoke to pt's son, Louie, in regards to discharge plans. SW explained that pt did not do well in regards to therapy and they did recommend rehab. SW let him know in regards to pt's back, [facility] is recommending follow up outpatient. Pt's son is in agreement that if pt is not able to get up and walk with assistance then she will need rehab for short time. Referral sent to [facility].. Referral included face sheet, ED note, H&P, provider notes, case management report, nursing notes, diagnostic imaging, med list, and PT note. Pt's son did let SW know he will want pt to return to her normal room in the memory unit after rehab. SKYLAR did pass this information on to Sangeetha at the [facility]. Pt will have to go to rehab part of [facility] while there skilled.
[2023-12-05] MEDS: LACTOSE -REDUCED (ENSURE ORIGINAL 237 ML LIQUID) PO ×2 (15:13→21:12)
[2023-12-05] MEDS: LIDOCAINE 5% PATCH 1 PATCH TOPICAL (15:13)
[2023-12-05 16:10] LABS: Glucometer 153 mg/dL (74-106)
--- NOTE | 2023-12-05 16:37 | RESP.RT ---
Pt can barely do the pep, could only perform 7 small breaths with constant and much encouragement
[2023-12-05] MEDS: TRAMADOL HCL 50 MG TABLET 100 MG PO (17:14)
[2023-12-05 21:11] LABS: Glucometer 137 mg/dL (74-106)
[2023-12-05] MEDS: ATORVASTATIN CALCIUM 40 MG TABLET PO (21:12)
[2023-12-06] VITALS (13 sets, daily range): BP systolic 133–166; BP diastolic 68–82; PULSE 67–105; TEMP 36.3–38.2; O2SAT 86–98
[2023-12-06] MEDS: TRAMADOL HCL 50 MG TABLET PO (05:11)
[2023-12-06 05:44] LABS: Basophils Absolute Auto 0.1 10^3/uL (0.0-0.1); Basophils Percent Auto 0.5 % (0.2-2.0); Eosinophils Absolute Auto 0.3 10^3/uL (0.0-0.7); Eosinophils Percent Auto 2.7 % (0.9-7.0); Hematocrit 34.9 % (36.0-48.0); Hemoglobin 11.2 g/dL (12.0-16.0); Immature Granulocytes Abs Auto 0.04 10^3/uL (0.00-0.03); Immature Granulocytes Pct Auto 0.4 % (0.0-0.5); Lymphocytes Absolute Auto 1.3 10^3/uL (1.2-3.8); Mean Corpuscular HGB Conc 32.1 g/dL (29.9-35.2); Mean Corpuscular Hemoglobin 29.5 pg (26.7-34.0); Mean Corpuscular Volume 91.8 fL (81.0-99.0); Mean Platelet Volume 10.6 fL (9.5-13.5); Monocytes Absolute Auto 0.9 10^3/uL (0.3-0.8); Monocytes Percent Auto 8.4 % (1.7-12.0); Neutrophils Absolute Auto 8.3 10^3/uL (1.4-6.5); Platelet Count 161 10^3/uL (150-450); White Blood Count 10.9 10^3/uL (4.0-11.0)
[2023-12-06 05:57] LABS: Alanine Aminotransferase 20 U/L (14-59); Albumin Globulin Ratio 0.8; Albumin Level 2.9 g/dL (3.4-5.0); Alkaline Phosphatase 64 U/L (46-116); Anion Gap 9.7; Aspartate Amino Transferase 19 U/L (15-37); BUN Creatinine Ratio 25.3; Bilirubin Total 0.8 mg/dL (0.2-1.0); Calcium 9.6 mg/dL (8.5-10.1); Carbon Dioxide 27.5 mmol/L (21.0-32.0); Chloride 105 mmol/L (98-107); Estimated GFR (African America >60 (>=60); Estimated GFR (Non-African Ame >60 (>=60); Globulin 3.7 g/dL; Glucose 132 mg/dL (74-106); Potassium 4.2 mmol/L (3.5-5.1); Sodium 138 mmol/L (136-145); Total Protein 6.6 g/dL (6.4-8.2)
[2023-12-06 08:02] LABS: Glucometer 149 mg/dL (74-106)
--- NOTE | 2023-12-06 09:39 | ECG_ITS ---
[facility] Test Date: 2023-12-06 Pat Name: TORIBIO MASTERS Department: Room: [facility] Gender: Female [employer] Runner: : 1935 Requested By: SKYLA DILLARD Order Number: [id number] Reading MD: CHARMAINE MENDOZA Measurements Intervals [place] Rate: 82 P: 80 VA: 213 QRS: -21 QRSD: 123 T: 87 QT: 357 QTc: 418 Interpretive Statements SINUS RHYTHM WITH FIRST DEGREE AV BLOCK LEFT VENTRICULAR HYPERTROPHY AND ST-T CHANGE [VOLTAGE CRITERIA PLUS ST/T ABNORMALITY] Low voltage across the precordium Electronically Signed On 12-07-2023 10:53:35 EDT by CHARMAINE MENDOZA
[2023-12-06 10:14] LABS: Ammonia <10 umol/L (11-32)
--- NOTE | 2023-12-06 11:07 | PT.DAILY ---
Physical Therapy Daily Note PT Daily Note/Assess Start: 12/06/23 11:06 Freq: Status: Active Protocol: Document 12/06/23 11:00 NII (Rec: 12/06/23 11:07 NII [id number]) Visit Not Completed Visit Not Completed Visit Not Completed Due to: Other Other Reason Visit Not Completed Having testing done. NA Physical Therapy Daily Note/Assessment Time In/Time Out Time In 11:00 Time Out 11:00 GG. Functional Abilities and Goals-Complete for Swing Bed Patients Only [id number]. Self-Care [id number]. Mobility
[2023-12-06 11:41] LABS: Glucometer 122 mg/dL (74-106)
--- NOTE | 2023-12-06 11:55 | RESP.RT ---
patient unable to do PEP; ABG attempted, flash seen but patient pulled away saying NO and ABG was not obtained. Patient moans to the slightest touch.
--- NOTE | 2023-12-06 13:33 | PM.IMPN1 ---
Progress Note: A&P Assessment and Plan (1) Hypertensive urgency: Assessment and Plan: At goal now. C/w home medications. IV hydralazine as needed (2) Acute respiratory failure with hypoxia: Assessment and Plan: 86% on RA. no resp distress. This is partly sec to poor inspiratory effort but there seems to be evidence of vascular congestion and possible inflitrates on CXR. Improving and now on 1 L O2 (3) Acute on chronic diastolic (congestive) heart failure: Assessment and Plan: Mild volume overload on exam and CXR - One dose of IV lasix. Monitor I/O. Could be due to HTN urgency (4) Pneumonia: Assessment and Plan: Possible infiltrates on CXR alongwith hypoxia. Start him on rocephin. Wean of O2 as tolerated. Qualifiers: Pneumonia type: due to unspecified organism Laterality: unspecified laterality Lung location: unspecified part of lung Qualified Code(s): J18.9 - Pneumonia, unspecified organism (5) Altered mental status: Assessment and Plan: Combination of dementia and opioids/pneumonia Normal ammonia. Normal CTH. Improving now. Monitor. Qualifiers: Altered mental status type: somnolence Qualified Code(s): R40.0 - Somnolence (6) Fall: Assessment and Plan: PT/OT eval Qualifiers: Encounter type: subsequent encounter Qualified Code(s): W19.XXXD - Unspecified fall, subsequent encounter (7) Dementia: Assessment and Plan: Severe with behavioral disturbances. Monitor Qualifiers: Dementia behavioral or psychological symptom: with mood disturbance Dementia severity: severe Dementia type: Alzheimer's Alzheimer's disease onset: late onset Qualified Code(s): G30.1 - Alzheimer's disease with late onset; F02.C3 - Dementia in other diseases classified elsewhere, severe, with mood disturbance (8) Leukocytosis: Assessment and Plan: Resolved Qualifiers: Leukocytosis type: leukemoid reaction Qualified Code(s): D72.823 - Leukemoid reaction (9) Lactic acidosis: Assessment and Plan: resolved (10) Compression fracture of L1 lumbar vertebra: Assessment and Plan: unclear whether its new or old. Pain is well controlled. Outpatient f/u Qualifiers: Encounter type: subsequent encounter Fracture healing: with routine healing Qualified Code(s): S32.010D - Wedge compression fracture of first lumbar vertebra, subsequent encounter for fracture with routine healing (11) Type 2 diabetes mellitus: Assessment and Plan: SSI while inpatient. Qualifiers: Diabetes mellitus terminal operator insulin use: without terminal operator use Diabetes mellitus complication status: without complication Qualified Code(s): E11.9 - Type 2 diabetes mellitus without complications (12) Paroxysmal atrial fibrillation: Assessment and Plan: Eliquis for stroke px. In NSR. (13) Major depressive disorder: Assessment and Plan: C/w home meds Qualifiers: Major depression recurrence: recurrent Active/Remission status: remission status unspecified Qualified Code(s): F33.9 - Major depressive disorder, recurrent, unspecified Internal Medicine - PN: Subj Subjective Interval history: Patient became very drowsy and sleepy overnight and was very difficult to wake up. She was seen earlier today. Her two sons were present bedside who raised concerns that she is not acting like her usual self. When I evaluated her, she was awake and responded selectively to my questions but then started to scream in pain whenever I touched her to examine. She did not appear to be in any discomfort and looked comfortable in bed. Exam Constitutional Vital Signs, click to edit/add: Last Vital Signs Temp 97.7 F 12/06/23 08:00 Pulse 89 12/06/23 08:00 Resp 18 12/06/23 08:00 BP 145/68 H 12/06/23 08:00 Pulse Ox 97 12/06/23 10:50 O2 Del Method Nasal Cannula 12/06/23 10:50 O2 Flow Rate 1 12/06/23 10:50 General appearance: ill appearing and frail appearing Orientation/consciousness: Yes awake Other: Confused. HENMT Common normals: normocephalic and head/scalp atraumatic Respiratory Common normals: normal respiratory effort and no use of accessory muscles Effort & inspection: decreased respiratory effort Auscultation: diminished lung sounds Cardio Common normals: regular rate, S1 normal heart sound and S2 normal heart sound GI Common normals: Normal to inspection, nondistended, normoactive bowel sounds present, soft to palpation, non-tender and no hepatosplenomegaly Extremity Common normals: normal to inspection and full ROM Neuro Common normals: moves all extremities, no focal motor deficits and no sensory deficits noted Sensorium/orientation: awake and fluctuating sensorium Gait (neuro): unable to assess gait Other: Confused Psych Attitude: withdrawn and uncooperative Speech: minimal Mood and affect: apathetic Thought process: confused Memory/cognition: memory grossly impaired and cognition grossly impaired Insight: poor Judgement: poor Internal Medicine - PN: Obj Da Labs Labs: Laboratory Results - last 24 hr 12/05/23 12/05/23 12/06/23 16:10 21:10 05:25 WBC 10.9 RBC 3.80 L Hgb 11.2 L Hct 34.9 L MCV 91.8 MCH 29.5 MCHC 32.1 RDW 13.0 Plt Count 161 MPV 10.6 Neut % (Auto) 76.0 H Lymph % (Auto) 12.0 L [place] % (Auto) 8.4 Eos % (Auto) 2.7 Baso % (Auto) 0.5 Neut # (Auto) 8.3 H Lymph # (Auto) 1.3 [place] # (Auto) 0.9 H Eos # (Auto) 0.3 Baso # (Auto) 0.1 Abs Immat Gran (auto) 0.04 H Imm/Tot Granulo (auto) 0.4 Sodium 138 Potassium 4.2 Chloride 105 Carbon Dioxide 27.5 Anion Gap 9.7 BUN 20.0 H Creatinine 0.79 Est GFR ( Amer) >60 Est GFR (Non-Af Amer) >60 BUN/Creatinine Ratio 25.3 Glucose 132 H Calcium 9.6 Total Bilirubin 0.8 AST 19 ALT 20 Alkaline Phosphatase 64 Ammonia Total Protein 6.6 Albumin 2.9 L Globulin 3.7 Albumin/Globulin Ratio 0.8 POC Glucose 153 H 137 H 12/06/23 12/06/23 12/06/23 08:01 09:59 11:40 WBC RBC Hgb Hct MCV MCH MCHC RDW Plt Count MPV Neut % (Auto) Lymph % (Auto) [place] % (Auto) Eos % (Auto) Baso % (Auto) Neut # (Auto) Lymph # (Auto) [place] # (Auto) Eos # (Auto) Baso # (Auto) Abs Immat Gran (auto) Imm/Tot Granulo (auto) Sodium Potassium Chloride Carbon Dioxide Anion Gap BUN Creatinine Est GFR ( Amer) Est GFR (Non-Af Amer) BUN/Creatinine Ratio Glucose Calcium Total Bilirubin AST ALT Alkaline Phosphatase Ammonia <10 L Total Protein Albumin Globulin Albumin/Globulin Ratio POC Glucose 149 H 122 H Urinary Catheter Management Urinary Catheter Management Straight: Cath placed during this visit: yes Urethral indwelling: No Insertion date: 12/06/23 Insertion time: 02:30
[2023-12-06] MEDS: CEFTRIAXONE 1,000 MG in 0.9 % SODIUM CHLORIDE 50 ML 100 MG IV (16:08)
[2023-12-06] MEDS: LIDOCAINE 5% PATCH 1 PATCH TOPICAL (16:10)
[2023-12-06 17:49] LABS: Glucometer 114 mg/dL (74-106)
[2023-12-06 20:34] LABS: Glucometer 117 mg/dL (74-106)
[2023-12-06] MEDS: ACETAMINOPHEN 1,000 MG/100 ML PREMIX 400 MG IV (21:31)
[2023-12-07 00:50] VITALS: BP 149/75; PULSE 94; TEMP 36.8; O2SAT 97
[2023-12-07 03:57] VITALS: O2SAT 97
[2023-12-07 04:23] LABS: Bilirubin Urine NEGATIVE (NEGATIVE); Blood Urine LARGE (NEGATIVE); Clarity Urine CLEAR (CLEAR); Color Urine YELLOW (YELLOW); Glucose Urine UA NEGATIVE (NEGATIVE); Ketones Urine TRACE mg/dL (NEGATIVE); Leukocyte Esterase Urine NEGATIVE (NEGATIVE); Nitrite Urine NEGATIVE (NEGATIVE); Protein Urine NEGATIVE (NEG/TRACE); Specific Gravity Urine >=1.030 (1.005-1.025); Urobilinogen Urine 0.2 EU/dL (0.2-1.0); pH Urine 5.5 (5.0-9.0)
[2023-12-07 04:24] LABS: Urine Microscopic Indicated YES
[2023-12-07 04:30] VITALS: BP 149/73; PULSE 88; TEMP 36.6; O2SAT 98
[2023-12-07 04:31] LABS: Bacteria Urine TRACE #/HPF (NONE SEEN); Crystals Seen? None Seen #/HPF (None Seen); Mucus Urine LARGE (NONE SEEN); Squamous Epithelial Cell Urine FEW #/LPF (NONE/RARE)
[2023-12-07 04:32] LABS: Cast Seen? NONE SEEN #/LPF (NONE SEEN)
[2023-12-07 04:52] LABS: Basophils Absolute Auto 0.1 10^3/uL (0.0-0.1); Basophils Percent Auto 0.4 % (0.2-2.0); Eosinophils Absolute Auto 0.1 10^3/uL (0.0-0.7); Eosinophils Percent Auto 0.4 % (0.9-7.0); Hematocrit 36.5 % (36.0-48.0); Hemoglobin 11.8 g/dL (12.0-16.0); Immature Granulocytes Abs Auto 0.04 10^3/uL (0.00-0.03); Immature Granulocytes Pct Auto 0.4 % (0.0-0.5); Lymphocytes Absolute Auto 1.1 10^3/uL (1.2-3.8); Lymphocytes Percent Auto 9.6 % (20.5-60.0); Mean Corpuscular HGB Conc 32.3 g/dL (29.9-35.2); Mean Corpuscular Hemoglobin 29.3 pg (26.7-34.0); Mean Corpuscular Volume 90.6 fL (81.0-99.0); Mean Platelet Volume 10.4 fL (9.5-13.5); Monocytes Percent Auto 8.7 % (1.7-12.0); Neutrophils Percent Auto 80.5 % (43.0-75.0); Platelet Count 157 10^3/uL (150-450); Red Blood Count 4.03 10^6/uL (4.20-5.40); Red Cell Distribution Width 12.5 % (11.0-15.0); White Blood Count 11.1 10^3/uL (4.0-11.0)
--- NOTE | 2023-12-07 05:05 | XR_ITS ---
The [address] [address] Patient Name: TORIBIO MASTERS MRN: [id number] date: 1935 Sex: F Assigned Patient Location: MS Current Patient Location: MS Accession/Order Number: [id number] Exam Date: 12/07/2023 05:40 Report Date: 12/07/2023 07:32 At the request of: REY WILD Procedure: XR forearm RT 2V EXAM: XR elbow RT 2V, XR hand RT 2V, XR forearm RT 2V 12/07/2023. HISTORY: Pain in the right elbow, right forearm and right hand. No known injury. COMPARISON: None. FINDINGS: Right elbow: 3 views of the right elbow were obtained. No fracture, dislocation or joint effusion is seen. No joint space narrowing. Right forearm: 2 views right forearm were obtained. No fracture or dislocation is seen. Right hand: 2 views of the right hand were obtained. The bones are osteoporotic. No fracture or dislocation is seen. There are mild degenerative changes of the first carpometacarpal joint and moderate degenerative changes of the first MCP joint. There are severe degenerative changes of the second through fifth DIP joints and the second and third PIP joints. XR/XR forearm RT 2V IMPRESSION: 1. No fracture or dislocation of the right elbow, right forearm or right hand. 2. 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 3. Osteoporosis. Electronically authenticated by: ARIANA BENJAMIN Date: 12/07/2023 07:32
--- NOTE | 2023-12-07 05:05 | XR_ITS ---
[place] [id number] Patient Name: TORIBIO MASTERS MRN: [id number] date: 1935 Sex: F Assigned Patient Location: MS Current Patient Location: MS Accession/Order Number: [id number] Exam Date: 12/07/2023 05:40 Report Date: 12/07/2023 07:24 At the request of: REY WILD Procedure: XR humerus RT EXAM: XR humerus RT , 12/07/2023 HISTORY: pain COMPARISON: X-ray of the right shoulder. TECHNIQUE: X-rays of the right humerus 2 views. FINDINGS: The bony structures and joint spaces of the right arm demonstrate no fracture-dislocation. Focal bony lesion. No obvious soft tissue swelling. XR/XR humerus RT IMPRESSION: No fracture or dislocation right humerus. Electronically authenticated by: GWENDOLYN PRINCE Date: 12/07/2023 07:24
--- NOTE | 2023-12-07 05:05 | XR_ITS ---
The [address] [address] Patient Name: TORIBIO MASTERS MRN: [id number] date: 1935 Sex: F Assigned Patient Location: MS Current Patient Location: MS Accession/Order Number: [id number] Exam Date: 12/07/2023 05:40 Report Date: 12/07/2023 07:32 At the request of: REY WILD Procedure: XR elbow RT 2V EXAM: XR elbow RT 2V, XR hand RT 2V, XR forearm RT 2V 12/07/2023. HISTORY: Pain in the right elbow, right forearm and right hand. No known injury. COMPARISON: None. FINDINGS: Right elbow: 3 views of the right elbow were obtained. No fracture, dislocation or joint effusion is seen. No joint space narrowing. Right forearm: 2 views right forearm were obtained. No fracture or dislocation is seen. Right hand: 2 views of the right hand were obtained. The bones are osteoporotic. No fracture or dislocation is seen. There are mild degenerative changes of the first carpometacarpal joint and moderate degenerative changes of the first MCP joint. There are severe degenerative changes of the second through fifth DIP joints and the second and third PIP joints. XR/XR elbow RT 2V IMPRESSION: 1. No fracture or dislocation of the right elbow, right forearm or right hand. 2. 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 3. Osteoporosis. Electronically authenticated by: ARIANA BENJAMIN Date: 12/07/2023 07:32
--- NOTE | 2023-12-07 05:05 | XR_ITS ---
The [address] [address] Patient Name: TORIBIO MASTERS MRN: [id number] date: 1935 Sex: F Assigned Patient Location: MS Current Patient Location: MS Accession/Order Number: [id number] Exam Date: 12/07/2023 05:40 Report Date: 12/07/2023 07:32 At the request of: REY WILD Procedure: XR hand RT 2V EXAM: XR elbow RT 2V, XR hand RT 2V, XR forearm RT 2V 12/07/2023. HISTORY: Pain in the right elbow, right forearm and right hand. No known injury. COMPARISON: None. FINDINGS: Right elbow: 3 views of the right elbow were obtained. No fracture, dislocation or joint effusion is seen. No joint space narrowing. Right forearm: 2 views right forearm were obtained. No fracture or dislocation is seen. Right hand: 2 views of the right hand were obtained. The bones are osteoporotic. No fracture or dislocation is seen. There are mild degenerative changes of the first carpometacarpal joint and moderate degenerative changes of the first MCP joint. There are severe degenerative changes of the second through fifth DIP joints and the second and third PIP joints. XR/XR hand RT 2V IMPRESSION: 1. No fracture or dislocation of the right elbow, right forearm or right hand. 2. 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 3. Osteoporosis. Electronically authenticated by: ARIANA BENJAMIN Date: 12/07/2023 07:32
--- NOTE | 2023-12-07 05:05 | XR_ITS ---
The [place] [id number] Patient Name: TORIBIO MASTERS MRN: [id number] date: 1935 Sex: F Assigned Patient Location: MS Current Patient Location: MS Accession/Order Number: [id number] Exam Date: 12/07/2023 05:40 Report Date: 12/07/2023 07:14 At the request of: REY WILD Procedure: XR shoulder RT min 2V EXAM: XR shoulder RT min 2V , 12/07/2023 HISTORY: Pain COMPARISON: Chest x-ray from 12/22/2023 TECHNIQUE: X-rays of the right shoulder 2 views. FINDINGS: Mild degenerative changes are seen at the right sternoclavicular joint and the greater tuberosity. Decreased subacromial space could be from rotator cuff pathology, recommend clinical correlation. No obvious soft tissue swelling. No fracture or dislocation right shoulder. XR/XR shoulder RT min 2V IMPRESSION: No fracture or dislocation right shoulder. Mild degenerative changes right shoulder. Electronically authenticated by: GWENDOLYN PRINCE Date: 12/07/2023 07:14
[2023-12-07 05:10] LABS: Alanine Aminotransferase 19 U/L (14-59); Albumin Globulin Ratio 0.7; Albumin Level 2.8 g/dL (3.4-5.0); Alkaline Phosphatase 69 U/L (46-116); Anion Gap 13.3; Aspartate Amino Transferase 25 U/L (15-37); BUN Creatinine Ratio 24.7; Bilirubin Total 1.1 mg/dL (0.2-1.0); Calcium 9.4 mg/dL (8.5-10.1); Carbon Dioxide 26.5 mmol/L (21.0-32.0); Chloride 102 mmol/L (98-107); Estimated GFR (African America >60 (>=60); Estimated GFR (Non-African Ame >60 (>=60); Globulin 4.1 g/dL; Glucose 130 mg/dL (74-106); Potassium 3.8 mmol/L (3.5-5.1); Sodium 138 mmol/L (136-145); Total Protein 6.9 g/dL (6.4-8.2)
--- NOTE | 2023-12-07 08:52 | XR_ITS ---
The [place] [id number] Patient Name: TORIBIO MASTERS MRN: [id number] date: 1935 Sex: F Assigned Patient Location: MS Current Patient Location: MS Accession/Order Number: [id number] Exam Date: 12/07/2023 09:05 Report Date: 12/07/2023 09:54 At the request of: SHAIKH ROSI Procedure: XR chest 1V PROCEDURE: XR chest 1V, 12/07/2023 9:05 AM EDT CLINICAL INDICATIONS: Shortness of breath COMPARISON: 12/05/2023 TECHNIQUE: Upright AP portable chest 0905 hours FINDINGS: Stable cardiomegaly. Moderate thoracic aortic calcified plaque noted. Mediastinum accentuated by rotation and kyphosis. Pulmonary venous congestion, improved interstitial edema is favored. Minimal asymmetric opacity in the perihilar and left upper lobe, left lower chest noted. Lobar consolidation, pleural effusion or pneumothorax are not evident. Acute osseous pathology is not seen. Regional soft tissues normal. XR/XR chest 1V IMPRESSION: 1. Cardiomegaly, mild improvement of interstitial edema 2. Mild confluent reticular opacities in the perihilar, left upper and left lower chest. Asymmetric pulmonary edema, early atypical infiltration or aspiration considered. Follow-up recommended in this regard 3. No lobar consolidation, significant pleural effusion or pneumothorax Electronically authenticated by: LUIS ALBERTO LAGOS Date: 12/07/2023 09:54
[2023-12-07 10:50] VITALS: O2SAT 97
--- NOTE | 2023-12-07 12:11 | PM.IMPN1 ---
Progress Note: A&P Assessment and Plan (1) Hypertensive urgency: Assessment and Plan: At goal now. C/w home medications. (2) Acute respiratory failure with hypoxia: Assessment and Plan: 86% on RA. no resp distress. . Wean off oxygen as tolerated. (3) Acute on chronic diastolic (congestive) heart failure: Assessment and Plan: Received IV Lasix on 12/06/2023. She has little to no oral intake. We'll start on gentle IV hydration. (4) Pneumonia: Assessment and Plan: Possible infiltrates on CXR alongwith hypoxia. Started patient on rocephin. She has no respiratory symptoms or distress. Qualifiers: Pneumonia type: due to unspecified organism Laterality: unspecified laterality Lung location: unspecified part of lung Qualified Code(s): J18.9 - Pneumonia, unspecified organism (5) Altered mental status: Assessment and Plan: Combination of dementia and opioids/pneumonia.Improved but is still confused and very weak overall Qualifiers: Altered mental status type: somnolence Qualified Code(s): R40.0 - Somnolence (6) Fall: Assessment and Plan: PT/OT eval Qualifiers: Encounter type: subsequent encounter Qualified Code(s): W19.XXXD - Unspecified fall, subsequent encounter (7) Dementia: Assessment and Plan: Severe with behavioral disturbances. Monitor Qualifiers: Alzheimer's disease onset: late onset Dementia behavioral or psychological symptom: with mood disturbance Dementia severity: severe Dementia type: Alzheimer's Qualified Code(s): G30.1 - Alzheimer's disease with late onset; F02.C3 - Dementia in other diseases classified elsewhere, severe, with mood disturbance (8) Leukocytosis: Assessment and Plan: Resolved Qualifiers: Leukocytosis type: leukemoid reaction Qualified Code(s): D72.823 - Leukemoid reaction (9) Lactic acidosis: Assessment and Plan: resolved (10) Compression fracture of L1 lumbar vertebra: Assessment and Plan: unclear whether its new or old. Pain is well controlled. Outpatient f/u Qualifiers: Encounter type: subsequent encounter Fracture healing: with routine healing Qualified Code(s): S32.010D - Wedge compression fracture of first lumbar vertebra, subsequent encounter for fracture with routine healing (11) Type 2 diabetes mellitus: Assessment and Plan: SSI while inpatient. Qualifiers: Diabetes mellitus intermediate manager insulin use: without penitentiary use Diabetes mellitus complication status: without complication Qualified Code(s): E11.9 - Type 2 diabetes mellitus without complications (12) Paroxysmal atrial fibrillation: Assessment and Plan: Eliquis for stroke px. In NSR. (13) Major depressive disorder: Assessment and Plan: C/w home meds Qualifiers: Major depression recurrence: recurrent Active/Remission status: remission status unspecified Qualified Code(s): F33.9 - Major depressive disorder, recurrent, unspecified (14) Failure to thrive: Assessment and Plan: Failure to thrive, little to no oral intake. She has advanced dementia and is not participating in her own care Had a prolonged discussion with family about goals of care that is discussed separately Qualifiers: Failure to thrive age range: in adult Qualified Code(s): R62.7 - Adult failure to thrive (15) Severe malnutrition: Assessment and Plan: Severe malnutrition about 20 pound weight loss over past 6-12 months. She has little to no oral intake at this point and is not eating. Discussed goals of care, possibility of artificial nutrition with PEG tube insertion with family. Plan Patient with Advanced dementia, severe malnutrition, failure to thrive and has poor prognosis. goals of care discussed with family and hospice consulted to discuss palliative versus hospice care for the patient. Internal Medicine - PN: Subj Subjective Interval history: Patient seen and examined. No overnight events. She has little to no oral intake. She is awake and responds to questions. She is very weak and has little to no strength to participate in her care. Exam Constitutional Vital Signs, click to edit/add: Last Vital Signs Temp 97.8 F 12/07/23 04:30 Pulse 88 12/07/23 04:30 Resp 20 12/07/23 04:30 BP 149/73 H 12/07/23 04:30 Pulse Ox 97 12/07/23 10:50 O2 Del Method Nasal Cannula 12/07/23 10:50 O2 Flow Rate 1 12/07/23 10:50 General appearance: ill appearing and frail appearing Orientation/consciousness: Yes awake Other: Confused. Respiratory Common normals: normal respiratory effort and no use of accessory muscles Effort & inspection: decreased respiratory effort Auscultation: diminished lung sounds Cardio Common normals: regular rate, S1 normal heart sound and S2 normal heart sound GI Common normals: Normal to inspection, nondistended, normoactive bowel sounds present, soft to palpation, non-tender and no hepatosplenomegaly Extremity Common normals: normal to inspection and full ROM Neuro Common normals: moves all extremities, no focal motor deficits and no sensory deficits noted Sensorium/orientation: awake and fluctuating sensorium Gait (neuro): unable to assess gait Other: Confused Psych Attitude: withdrawn and uncooperative Speech: minimal Mood and affect: apathetic Thought process: confused Memory/cognition: memory grossly impaired and cognition grossly impaired Insight: poor Judgement: poor Internal Medicine - PN: Obj Da Labs Labs: Laboratory Results - last 24 hr 12/06/23 12/06/23 12/07/23 17:48 20:33 02:01 WBC RBC Hgb Hct MCV MCH MCHC RDW Plt Count MPV Neut % (Auto) Lymph % (Auto) [place] % (Auto) Eos % (Auto) Baso % (Auto) Neut # (Auto) Lymph # (Auto) [place] # (Auto) Eos # (Auto) Baso # (Auto) Abs Immat Gran (auto) Imm/Tot Granulo (auto) Sodium Potassium Chloride Carbon Dioxide Anion Gap BUN Creatinine Est GFR ( Amer) Est GFR (Non-Af Amer) BUN/Creatinine Ratio Glucose Calcium Total Bilirubin AST ALT Alkaline Phosphatase Total Protein Albumin Globulin Albumin/Globulin Ratio Urine Color Yellow Urine Clarity Clear Urine pH 5.5 Ur Specific [place] >=1.030 A Urine Protein Negative Urine Glucose (UA) Negative Urine Ketones Trace A Urine Occult Blood Large A Urine Nitrite Negative Urine Bilirubin Negative Urine Urobilinogen 0.2 Ur Leukocyte Esterase Negative Urine RBC 2-5 A Urine WBC 2-5 A Ur Squamous Epith Cells Few A Urine Crystals None seen Urine Bacteria Trace A Urine Casts None seen Urine Mucus Large A POC Glucose 114 H 117 H 12/07/23 04:37 WBC 11.1 H RBC 4.03 L Hgb 11.8 L Hct 36.5 MCV 90.6 MCH 29.3 MCHC 32.3 RDW 12.5 Plt Count 157 MPV 10.4 Neut % (Auto) 80.5 H Lymph % (Auto) 9.6 L [place] % (Auto) 8.7 Eos % (Auto) 0.4 L Baso % (Auto) 0.4 Neut # (Auto) 9.0 H Lymph # (Auto) 1.1 L [place] # (Auto) 1.0 H Eos # (Auto) 0.1 Baso # (Auto) 0.1 Abs Immat Gran (auto) 0.04 H Imm/Tot Granulo (auto) 0.4 Sodium 138 Potassium 3.8 Chloride 102 Carbon Dioxide 26.5 Anion Gap 13.3 BUN 19.0 H Creatinine 0.77 Est GFR ( Amer) >60 Est GFR (Non-Af Amer) >60 BUN/Creatinine Ratio 24.7 Glucose 130 H Calcium 9.4 Total Bilirubin 1.1 H AST 25 ALT 19 Alkaline Phosphatase 69 Total Protein 6.9 Albumin 2.8 L Globulin 4.1 Albumin/Globulin Ratio 0.7 Urine Color Urine Clarity Urine pH Ur Specific [place] Urine Protein Urine Glucose (UA) Urine Ketones Urine Occult Blood Urine Nitrite Urine Bilirubin Urine Urobilinogen Ur Leukocyte Esterase Urine RBC Urine WBC Ur Squamous Epith Cells Urine Crystals Urine Bacteria Urine Casts Urine Mucus POC Glucose Urinary Catheter Management Urinary Catheter Management Straight: Cath placed during this visit: yes Urethral indwelling: No Insertion date: 12/06/23 Insertion time: 21:34
--- NOTE | 2023-12-07 12:19 | PM.CSD1 ---
Advance Care Planning Advance Care Planning Discussion Advance care planning discussion summary: [age] year old female with history of advanced dementia currently admitted for acute respiratory failure with hypoxia secondary to acute on chronic diastolic heart failure, possibly pneumonia. She has Little to no oral intake, severe malnutrition and poor prognosis due to her age, frailty and dementia. Goals of care discussed with patient's family - three sons were present including Louie who is POA. Discussed patients prognosis, current illness. We explored artificial nutrition for the patient. Explained and educated them on palliative care and hospice care. After detailed discussed, answering their questions and addressing their concerns, hospice was consulted. A total of about 20 minutes were spent of Advanced care planning. Does patient have a terminal or chronic,progressive disease such that prognosis is less than 6 months: Yes Advance care planning discussion participants: patient, legally authorized Health Care Proxy and other family member
[2023-12-07] MEDS: SODIUM CHLORIDE 0.45 % 1,000 ML 75 ML IV (14:28)
[2023-12-07] MEDS: ACETAMINOPHEN 1,000 MG/100 ML PREMIX 400 MG IV (14:37)
[2023-12-07] MEDS: CEFTRIAXONE 1,000 MG in 0.9 % SODIUM CHLORIDE 50 ML 100 MG IV (15:09)
[2023-12-07 20:00] VITALS: PULSE 113
[2023-12-07 20:47] VITALS: O2SAT 97
[2023-12-07 20:47] LABS: Glucometer 120 mg/dL (74-106)
--- NOTE | 2023-12-07 20:50 | RESP.RT ---
Patient unable to do PEP
[2023-12-07] MEDS: LIDOCAINE 5% PATCH 1 PATCH TOPICAL (21:58)
[2023-12-08] MEDS: ACETAMINOPHEN 1,000 MG/100 ML PREMIX 400 MG IV (02:12)
[2023-12-08] MEDS: SODIUM CHLORIDE 0.45 % 1,000 ML 75 ML IV (02:13)
[2023-12-08 04:38] VITALS: O2SAT 96
[2023-12-08 05:13] LABS: Basophils Percent Auto 0.3 % (0.2-2.0); Eosinophils Absolute Auto 0.2 10^3/uL (0.0-0.7); Eosinophils Percent Auto 1.8 % (0.9-7.0); Hematocrit 36.9 % (36.0-48.0); Immature Granulocytes Abs Auto 0.02 10^3/uL (0.00-0.03); Immature Granulocytes Pct Auto 0.2 % (0.0-0.5); Lymphocytes Absolute Auto 1.4 10^3/uL (1.2-3.8); Lymphocytes Percent Auto 14.8 % (20.5-60.0); Mean Corpuscular HGB Conc 32.5 g/dL (29.9-35.2); Mean Corpuscular Hemoglobin 29.4 pg (26.7-34.0); Mean Corpuscular Volume 90.4 fL (81.0-99.0); Mean Platelet Volume 10.8 fL (9.5-13.5); Monocytes Absolute Auto 0.8 10^3/uL (0.3-0.8); Monocytes Percent Auto 8.5 % (1.7-12.0); Neutrophils Absolute Auto 6.8 10^3/uL (1.4-6.5); Neutrophils Percent Auto 74.4 % (43.0-75.0); Platelet Count 163 10^3/uL (150-450); Red Blood Count 4.08 10^6/uL (4.20-5.40); Red Cell Distribution Width 12.5 % (11.0-15.0); White Blood Count 9.2 10^3/uL (4.0-11.0)
[2023-12-08 05:31] LABS: Alanine Aminotransferase 15 U/L (14-59); Albumin Globulin Ratio 0.7; Albumin Level 2.7 g/dL (3.4-5.0); Alkaline Phosphatase 64 U/L (46-116); Anion Gap 16.2; Aspartate Amino Transferase 25 U/L (15-37); BUN Creatinine Ratio 25.5; Bilirubin Total 0.8 mg/dL (0.2-1.0); Carbon Dioxide 24.4 mmol/L (21.0-32.0); Chloride 101 mmol/L (98-107); Estimated GFR (African America >60 (>=60); Estimated GFR (Non-African Ame >60 (>=60); Glucose 105 mg/dL (74-106); Potassium 3.6 mmol/L (3.5-5.1); Sodium 138 mmol/L (136-145); Total Protein 6.7 g/dL (6.4-8.2)
[2023-12-08] MEDS: LIDOCAINE 5% PATCH 1 PATCH TOPICAL (08:41)
[2023-12-08] MEDS: HYDRALAZINE HCL 20 MG/ML VIAL 10 MG IVP (08:48)
[2023-12-08] MEDS: KETOROLAC TROMETHAMINE 30 MG/ML VIAL 15 MG IVP (08:49)
[2023-12-08 09:03] VITALS: BP 179/100; PULSE 102; O2SAT 91
[2023-12-08 09:09] VITALS: PULSE 102
--- NOTE | 2023-12-08 10:10 | CM.NOTE ---
Rounds made with Dr. Dash, family at bedside awaiting [facility] for consult this AM. Family would like to speak with Janette prior to discussing discharge planning.
--- NOTE | 2023-12-08 10:18 | SWNOTE1 ---
[facility] is in meeting with family.
--- NOTE | 2023-12-08 10:24 | P.DS_ITS ---
<Statement entered by Shaikh Hardy MD - 12/08/23 10:45> This documentation has been reviewed and approved. Patient seen and examined. Agree with clinical documentation and treatment plan. Family met with Hospice team today and she was accepted for inpatient hospice for failure to thrive, severe malnutrition and advanced dementia. Questions and concerned answered and addressed. Over 30 minutes spent on discharge planning and co ordination DS: Providers Provider Date of admission: 12/05/23 11:45 Primary care physician: SKYLA DILLARD DO Consults: 12/05/23 08:00 Consult to [employer]ractor Routine Has provider been notified: No Reason for consult:: Other Other reason:: D/C planning 12/05/23 09:00 Occupational Therapy Eval and Treat Routine Reason for consultation: fall, weakness Has provider been notified: No Physical Therapy Eval and Treat Routine Reason for consultation: fall, weakness Has provider been notified: No 12/07/23 10:58 Consult to Hospice Routine Reason for consultation: Dementia, poor PO intake Discharging clinician: Chata Solo DS: Diagnosis Discharge Diagnosis (1) Hypertensive urgency: (2) Acute respiratory failure with hypoxia: (3) Acute on chronic diastolic (congestive) heart failure: (4) Pneumonia: Qualifiers: Laterality: unspecified laterality Lung location: unspecified part of lung Pneumonia type: due to unspecified organism Qualified Code(s): J18.9 - Pneumonia, unspecified organism (5) Altered mental status: Qualifiers: Altered mental status type: somnolence Qualified Code(s): R40.0 - Somnolence (6) Fall: Qualifiers: Encounter type: subsequent encounter Qualified Code(s): W19.XXXD - Unspecified fall, subsequent encounter (7) Dementia: Qualifiers: Alzheimer's disease onset: late onset Dementia behavioral or psyc hological symptom: with mood disturbance Dementia severity: severe Dementia type: Alzheimer's Qualified Code(s): G30.1 - Alzheimer's disease with late onset; F02.C3 - Dementia in other diseases classified elsewhere, severe, with mood disturbance (8) Leukocytosis: Qualifiers: Leukocytosis type: leukemoid reaction Qualified Code(s): D72.823 - Leukemoid reaction (9) Lactic acidosis: (10) Compression fracture of L1 lumbar vertebra: Qualifiers: Encounter type: subsequent encounter Fracture healing: with routine healing Qualified Code(s): S32.010D - Wedge compression fracture of first lumbar vertebra, subsequent encounter for fracture with routine healing (11) Type 2 diabetes mellitus: Qualifiers: Diabetes mellitus complication status: without complication Diabetes mellitus termite treater helper insulin use: without snf use Qualified Code(s): E11.9 - Type 2 diabetes mellitus without complications (12) Paroxysmal atrial fibrillation: (13) Major depressive disorder: Qualifiers: Active/Remission status: remission status unspecified Major depression recurrence: recurrent Qualified Code(s): F33.9 - Major depressive disorder, recurrent, unspecified (14) Failure to thrive: Qualifiers: Failure to thrive age range: in adult Qualified Code(s): R62.7 - Adult failure to thrive (15) Severe malnutrition: DS: Summary Hospital Course Hospital Course: The patient was admitted with acute intractable back pain after suffering a fall and also with acute respiratory failure/hypoxia. An L1 compression deformity was noted on x-ray imaging with unknown chronicity, possibly acute. She received multimodal pain management and her pain was adequately controlled, but she continued to complain of pain with repositioning and has not ambulated. X- ray imaging on admission was suggestive of pulmonary edema and she received gentle IV Lasix administration, but she has failed to eat or drink anything since admission and is becoming dehydrated. Gentle hydration was instead initiated without overt edema clinically noted. Repeat chest x-rays indicated possible infiltrate and she was started on IVPB Rocephin. Leukocytosis and lactic acidosis noted on admission have resolved. Iatrogenic metabolic encephal opathy/AMS was suspected due to a combination of dementia and narcotic pain medications and her narcotic pain medications were discontinued. As the patient was not eating or drinking and becoming malnourished with obvious failure to thrive, goals of care discussion was held with the family. They decided to pursue hospice and [facility] was consulted. The family has met with [facility] and she is to be admitted to their inpatient unit. She will be discharged later today and we defer all further treatment to the hospice providers. Time Spent with Patient Time attestation: Total time spent providing and/or coordinating discharge services: Time spent: greater than 30 minutes Specific discharge activities: Physical exam, discussion of discharge plan, questions answered. Exam Constitutional Vital Signs, click to edit/add: Last Vital Signs Temp 97.8 F 12/07/23 04:30 Pulse 102 H 05/06/24 09:09 Resp 20 12/08/23 09:09 BP 179/100 H 12/08/23 09:03 Pulse Ox 91 L 12/08/23 09:03 O2 Del Method Room Air 12/08/23 09:03 O2 Flow Rate 1 12/08/23 04:38 Common normals: no apparent distress and alert General appearance: cooperative Orientation/consciousness: Yes awake HENMT Common normals: normocephalic and head/scalp atraumatic Eye Common normals: PERRL, EOMs intact bilaterally, conjunctivae normal and no scleral icterus Neck & C-Spine Common normals: no JVD Respiratory Common normals: normal respiratory effort, no use of accessory muscles and clear to auscultation bilaterally Effort & inspection: able to speak in complete sentences and symmetric chest movement Auscultation: diminished lung sounds (BLL) Cardio Common normals: no JVD, regular rate, regular rhythm, S1 normal heart sound, S2 normal heart sound and peripheral pulses 2+ throughout Heart sounds: murmur (HSM 4/6) GI Common normals: Normal to inspection, nondistended, normoactive bowel sounds present and soft to palpation Palpation: tender (mild, diffuse, no foci); no guarding and no rebound tenderness present Bladder/kidney exam: bladder normal to palpation Extremity Common normals: normal to inspection, full ROM, normal capillary refill and no pedal edema General: no clubbing and no cyanosis Neuro Common normals: oriented x3, moves all extremities, no focal motor deficits and no sensory deficits noted Speech: speech normal Psych Common normals: activity/motor behavior normal DS: Data Data Completed and Pending Labs on day of discharge: Labs from last 24 hours 12/08/23 12/07/23 04:37 20:45 WBC 9.2 RBC 4.08 L Hgb 12.0 Hct 36.9 MCV 90.4 MCH 29.4 MCHC 32.5 RDW 12.5 Plt Count 163 MPV 10.8 Neut % (Auto) 74.4 Lymph % (Auto) 14.8 L [place] % (Auto) 8.5 Eos % (Auto) 1.8 Baso % (Auto) 0.3 Neut # (Auto) 6.8 H Lymph # (Auto) 1.4 [place] # (Auto) 0.8 Eos # (Auto) 0.2 Baso # (Auto) 0.0 Abs Immat Gran (auto) 0.02 Imm/Tot Granulo (auto) 0.2 Sodium 138 Potassium 3.6 Chloride 101 Carbon Dioxide 24.4 Anion Gap 16.2 BUN 14.0 Creatinine 0.55 Est GFR ( Amer) >60 Est GFR (Non-Af Amer) >60 BUN/Creatinine Ratio 25.5 Glucose 105 Calcium 9.0 Total Bilirubin 0.8 AST 25 ALT 15 Alkaline Phosphatase 64 Total Protein 6.7 Albumin 2.7 L Globulin 4.0 Albumin/Globulin Ratio 0.7 POC Glucose 120 H Discharge Plan Discharge Disposition: Hospice - Medical Facility Condition: Good Discharge Medications: Continued clopidogrel 75 mg tablet 75 mg PO DAILY Eliquis 2.5 mg tablet 2.5 mg PO BID pantoprazole 20 mg tablet,delayed release (DR/EC) 20 mg PO DAILY isosorbide dinitrate 30 mg tablet 30 mg PO DAILY Hold Instructions: Resume on 06/05/23. cephalexin 500 mg capsule 500 mg PO QDAY Hold Instructions: Started in December 2022 Patient Comments: STARTED 06-01-23, DAY SUPPLY sertraline 25 mg tablet 25 mg PO DAILY metoprolol tartrate 25 mg tablet 25 mg PO BID Hold Instructions: Resume on 06/05/23. Patient Comments: HOLD FOR SBP < 100 albuterol sulfate 90 mcg/actuation aerosol powdr breath activated 1 inh inhalation Q6H PRN (Reason: shortness of breath) atorvastatin 40 mg tablet 40 mg PO QPM docusate sodium [Colace] 100 mg capsule 100 mg PO BID senna 8.6 mg capsule 8.6 mg PO DAILY benzonatate 100 mg capsule 100 mg PO TID PRN (Reason: cough) ondansetron HCl 4 mg tablet 4 mg PO Q6H PRN (Reason: nausea and vomiting) oxybutynin chloride 5 mg tablet extended release 24hr 5 mg PO DAILY acetaminophen 325 mg capsule 650 mg PO QID PRN (Reason: fever or pain) calcium citrate-vitamin D3 [Calcium Citrate + D] 315 mg-5 mcg (200 unit) tablet 1 tab PO DAILY loratadine [Claritin] 10 mg tablet 10 mg PO DAILY PRN (Reason: allergy symptoms) Print Language: Greenlandic Forms: Portal Instructions Follow Up Appointments: December 18 @ 9:40am with Dr. Tomas (spine) [facility] [address] [place] [phone]
--- NOTE | 2023-12-08 10:53 | SWNOTE1 ---
Pt is going to [facility] inpt unit at 16:30.
--- NOTE | 2023-12-08 10:55 | CM.NOTE ---
Important Message From [employer] discussed with pt's son at bedside, verbalizes understanding and signs paper. Original given to pt's son and copy placed on pt's chart.
[2023-12-08 11:10] VITALS: O2SAT 91
[2023-12-08] MEDS: LORAZEPAM 2 MG/ML VIAL 0.5 MG IV (13:15)
[2023-12-08] MEDS: CEFTRIAXONE 1,000 MG in 0.9 % SODIUM CHLORIDE 50 ML 100 MG IV (14:24)
--- NOTE | 2023-12-08 14:55 | PC.NURSE ---
Report called in to Barbra at [facility] at 1450.
[2023-12-08] MEDS: MORPHINE SULFATE 2 MG/ML SYRINGE IV (16:24)
== END 2023-12-08 17:06 | disposition hospice, inpatient (51) | DRG 551 ==
LOC: ER 22:49 → MS 23:14
PROVIDERS: Internal Medicine; Physician Assistant; Registered Nurse; Admitting Provider Nurse Practitioner; Emergency Provider Emergency Medicine; PCP Family Medicine; Visit Provider Nurse Practitioner
DX: S32.010A Wedge compression fracture of first lumbar vertebra, initial encounter for closed fracture (principal); E43 Unspecified severe protein-calorie malnutrition; J96.01 Acute respiratory failure with hypoxia; I50.33 Acute on chronic diastolic (congestive) heart failure; J18.9 Pneumonia, unspecified organism; G92.8 Other toxic encephalopathy; I42.2 Other hypertrophic cardiomyopathy; E87.20 Acidosis, unspecified; F02.C3 Dementia in other diseases classified elsewhere, severe, with mood disturbance; F33.9 Major depressive disorder, recurrent, unspecified; T40.605A Adverse effect of unspecified narcotics, initial encounter; W18.39XA Other fall on same level, initial encounter; W22.8XXA Striking against or struck by other objects, initial encounter; Y92.129 Unspecified place in nursing home as the place of occurrence of the external cause; G30.1 Alzheimer's disease with late onset; Z66 Do not resuscitate; E86.0 Dehydration; D72.823 Leukemoid reaction; Z51.5 Encounter for palliative care; M25.551 Pain in right hip; Z79.01 Long term (current) use of anticoagulants; R53.1 Weakness; E78.5 Hyperlipidemia, unspecified; I11.0 Hypertensive heart disease with heart failure; E11.65 Type 2 diabetes mellitus with hyperglycemia; I16.0 Hypertensive urgency; I25.10 Atherosclerotic heart disease of native coronary artery without angina pectoris; K21.9 Gastro-esophageal reflux disease without esophagitis; Z86.73 Personal history of transient ischemic attack (TIA), and cerebral infarction without residual deficits; Z79.899 Other long term (current) drug therapy; Z79.02 Long term (current) use of antithrombotics/antiplatelets; Z88.8 Allergy status to other drugs, medicaments and biological substances; I48.0 Paroxysmal atrial fibrillation; Z68.21 Body mass index [BMI] 21.0-21.9, adult
CPT/HCPCS: 36415; 51701; 51702; 70450; 71045; 72100; 72125; 72170; 73030; 73060; 73070; 73090; 73120; 73552; 73590; 73630; 80048; 80053; 81001; 82140; 82800; 82805; 82948; 83036; 83605; 83880; 84484; 85025; 85027; 85610; 93005; 94667; 94761; 96365; 96366; 96367; 96375; 97162; 97165; 99285; G0378